=== PATIENT | female | born 1950 | race Caucasian/White ===

== ENCOUNTER → 2019-08-27 13:54 | Outpatient (BNVA) | payer OTHER, SELFPAY | PROVIDERS: Family Provider Family Medicine; PCP Family Medicine; Visit Provider Internal Medicine Cardiovascular Disease | DX: I70.209 Unspecified atherosclerosis of native arteries of extremities, unspecified extremity (principal) | CPT/HCPCS: 85610 ==

== ENCOUNTER → 2019-09-03 09:08 | Outpatient (BNVA) | payer OTHER, MEDICARE, SELFPAY | PROVIDERS: Family Provider Family Medicine; PCP Family Medicine; Visit Provider Internal Medicine Cardiovascular Disease | DX: I70.209 Unspecified atherosclerosis of native arteries of extremities, unspecified extremity (principal) | CPT/HCPCS: 85610 ==

== ENCOUNTER → 2019-09-16 08:27 | Outpatient (BNVA) | payer OTHER, MEDICARE, SELFPAY | PROVIDERS: Family Provider Family Medicine; PCP Family Medicine; Visit Provider Internal Medicine Cardiovascular Disease | DX: I70.209 Unspecified atherosclerosis of native arteries of extremities, unspecified extremity (principal) | CPT/HCPCS: 85610 ==

== ENCOUNTER → 2019-10-01 08:25 | Outpatient (BNVA) | payer MEDICARE, OTHER, SELFPAY | PROVIDERS: Family Provider Family Medicine; PCP Family Medicine; Visit Provider Internal Medicine Cardiovascular Disease | DX: I70.209 Unspecified atherosclerosis of native arteries of extremities, unspecified extremity (principal) | CPT/HCPCS: 85610 ==

== ENCOUNTER 2019-10-26 07:26 | Outpatient (CLI) | payer MEDICARE, OTHER, SELFPAY ==
--- NOTE | 2019-10-26 07:34 | USCV_ITS ---
Nimo Pressley Age: 69 Gender: F : 1950 Exam Date: 10/26/2019 07:57 Ordering Phys: Lance Plascencia MD (Andy) ([email or web address]) Technologist: Marysol Farooq Exam Location: [facility] [place] Indication: F/U ON BILATERAL CEA Risk Factors: Unknown Previous Vascular Surgery: R CEA, L CEA Right Brachial BP: / Left Brachial BP: / Right Left Velocity (cm/s) Spectral Plaque Velocity (cm/s) Spectral Plaque Syst/Diast Broadening Syst/Diast Broadening 78.30/ 15.40 Prox CCA 99.70 / 22.00 78.30/ 17.60 Mid CCA 74.90 / 12.50 65.10/ 11.00 Distal CCA 36.60 / 13.00 Hetro 46.60/ 13.20 Hetro Prox ICA 61.40 / 17.70 83.60/ 30.10 Mid ICA 85.20 / 21.10 66.70/ 23.50 Distal ICA 123.00/ 28.30 170.90 Hetro ECA 76.45 1.07 ICA/CCA 1.64 Antegrade Vertebral Antegrade 77.00/ 12.50 cm/s 67.80/ 11.30 cm/s Tri Subclavian Tri 167.1 212.0 0 0 FINDINGS Mild to moderate diffuse plaques at the bifurcations and internal carotid arteries Moderate to heavy plaques at the right proximal external carotid artery Minimal plaques and intimal thickening in the common carotid arteries bilaterally. Antegrade flow in the vertebral arteries bilaterally. CONCLUSIONS Mild to moderate diffuse plaques at the bifurcations and internal carotid arteries with no significant stenosis, based on the flow velocity measurements. Moderate to heavy plaques at the right proximal external carotid artery with velocity elevation, may suggest hemodynamically significant stenosis. Compared to the study from 04/16/2019, there may not be a significant change. Dr Farhat Cervantes MD [facility] (Electronically Signed) Final Date: 27 October 2019 17:57 S
== END 2019-10-26 07:27 | disposition home or self-care (01) ==
LOC: RAD 07:31
PROVIDERS: Family Provider Family Medicine; PCP Family Medicine; Visit Provider Thoracic Surgery (Cardiothoracic Vascular Surgery)
DX: I65.23 Occlusion and stenosis of bilateral carotid arteries (principal)
CPT/HCPCS: 93880

== ENCOUNTER → 2019-10-29 09:49 | Outpatient (BNVA) | payer MEDICARE, OTHER, SELFPAY | PROVIDERS: Family Provider Family Medicine; PCP Family Medicine; Visit Provider Internal Medicine Cardiovascular Disease | DX: I70.209 Unspecified atherosclerosis of native arteries of extremities, unspecified extremity (principal) | CPT/HCPCS: 85610 ==

== ENCOUNTER → 2019-12-23 09:56 | Outpatient (BNVA) | payer MEDICARE, OTHER, SELFPAY | PROVIDERS: Family Provider Family Medicine; PCP Family Medicine; Visit Provider Internal Medicine Cardiovascular Disease | DX: I70.209 Unspecified atherosclerosis of native arteries of extremities, unspecified extremity (principal) | CPT/HCPCS: 85610 ==

== ENCOUNTER 2020-01-06 15:16 | Outpatient (CLI) | payer MEDICARE, OTHER, SELFPAY ==
--- NOTE | 2020-01-06 15:45 | USCV_ITS ---
Nimo Pressley Age: 69 Gender: F : 1950 Exam Date: 01/06/2020 15:29 Ordering Phys: Yvonne Santamaria MD ([email or web address]) Technologist: Lina Presley [place] [facility] [place]: PAD Risk Factors: Previous Vascular Surgery: ILIAC/POP BYPASS ON LEFT EXTREMITY RIGHT LEFT BP: 123.0 / BP: 139.0/ 0 0 Waveform Velocity (cm/s) Velocity (cm/s) Waveform Monophasic 211.8 Iliac Prox 314.8 Biphasic Monophasic 211.8 Iliac Mid 262.8 Biphasic Monophasic 219.0 Iliac Distal 180.3 Biphasic Monophasic 197.3 KEEPER HEAD N/A Monophasic 90.5 SFA Prox 133.0 Biphasic Monophasic 47.4 SFA Mid 62.1 Biphasic Monophasic 50.4 SFA Dist 47.3 Biphasic Monophasic 56.5 POP 63.1 Biphasic Monophasic 32.9 DIRECTOR OF DEVELOPMENT 47.3 Biphasic Monophasic 16.8 DPA 34.5 Biphasic ANITHA 0.5 FINDINGS RT DIRECTOR OF DEVELOPMENT PRESSURE = 75, RT DPA PRESSURE = 60 RT ARTERIAL VERY HEAVILY CALCIFIED WITH LIMITED FLOW. Patient would not allow me to take pressure at left ankle. Normal resting ANITHA on the right side Left ANITHA could not be obtained No turbulence and elevated velocity in the left iliac artery at the proximal segment CONCLUSIONS 1. Abnormal resting ANITHA and Doppler waveforms on the right side suggestive of moderately severe peripheral artery disease, possibly iliofemoral. 2. Patent iliopopliteal bypass graft on the left side 3. Features of greater than 60% stenosis in the proximal iliac artery on the left side. Compared to the study from 10/17/2018, the right SFA appears to be patent; but the ANITHA has decreased from 0.6 to 0.5 . There is development of significant stenosis in the left proximal iliac artery. Dr Farhat Cervantes MD [facility] (Electronically Signed) Final Date: 06 Jan 2020 19:27 S
== END 2020-01-06 15:17 | disposition home or self-care (01) ==
LOC: RAD 15:20
PROVIDERS: PCP Family Medicine; Visit Provider Internal Medicine Cardiovascular Disease
DX: I73.9 Peripheral vascular disease, unspecified (principal); I70.8 Atherosclerosis of other arteries
CPT/HCPCS: 93925

== ENCOUNTER 2020-01-19 07:48 | Outpatient (CLI) | payer MEDICARE, OTHER, SELFPAY ==
[2020-01-19 08:30] LABS: Blood Urea Nitrogen 8 mg/dL (8-23)
[2020-01-19] MEDS: iohexol 350 mg/mL 100 mL Btl IV (08:50)
--- NOTE | 2020-01-19 15:30 | CT_ITS ---
WS: [id number] CT ANGIOGRAPHY OF THE ABDOMINAL AORTA WITH RUNOFF TO THE ANKLES HISTORY: Peripheral artery disease TECHNIQUE: Arterial injection is performed during imaging to evaluate the aorta and runoff vessels to the ankles. MIP and volume rendering imaging has also been performed. All images are reviewed. All C T scans at [facility] use at least one of these dose optimization techniques: automated ex posure control; mA and/or kV adjustment per patient size (includes targeted exams where dose is match ed to clinical indication); or iterative reconstruction. Contrast: Omnipaque 350; 95 mL IV. DLP: 1399.7 mGycm COMPARISON: 07/07/2013 History of iliopopliteal bypass graft on the LEFT. Abdominal aorta: There is extensive calcified plaque throughout the aorta. Mild progression of the pl aque with no aneurysm. There is intimal thickening circumferentially. Very mild narrowing and stenosi s of the distal aorta. Diameter of the distal aorta 6.3 mm. There is calcified plaque at the celiac a xis with no stenosis. Heavy calcified plaque at the origin of the SMA with diffuse calcified plaque e xtending into the more distal SMA. Similar to the prior study. Inferior mesenteric artery is patent. Calcified plaque at the origins of the renal arteries. Kidneys are enhancing normally. Upper pole LEF T renal cyst. No renal obstruction. RIGHT lower extremity arterial system: There is heavy calcified plaque with diffuse moderate narrowin g of the common iliac artery. Calcified plaque and intimal thickening continues to the external iliac and the internal iliac arteries. Multifocal areas of stenosis near 50% in the common and external il iac arteries. There is an occluded RIGHT SFA at its origin. Reconstitution via the distal femoral art sarah but there is continued heavy calcified plaque and intermittent visualization. Popliteal artery is patent with calcified plaque. Runoff to the ankle via 3 vessels but the vessel caliber is small. LEFT lower extremity arterial system: There is heavy calcified plaque moderate intimal thickening thr oughout the common, internal and external iliac arteries. Multifocal areas of stenosis. Mild atherosc lerosis of the femoral artery. Patient is status post iliofemoral bypass graft. This graft is patent. Popliteal artery is patent. Three-vessel runoff to the ankle although the caliber of the vessels is small. LEFT common iliac artery, distal 71% stenosis. Lung bases are clear. No cardiomegaly. Liver, gallbladder, spleen, pancreas and adrenal glands are ne gative for interval change. No adenopathy or ascites. No GI tract obstruction. Increase in lumbar lordosis. There is no osteoblastic or osteolytic bone disease. CT/CT angio abd aorta runof [id number] IMPRESSION: 1. Patent LEFT iliofemoral bypass graft. 2. Occluded RIGHT SFA proximally with distal reconstitution at Javier's canal. New since 07/07/2013. 3. Bilateral three-vessel runoff to the ankles but the caliber of the vessels is small. 4. Moderate stenosis distal aorta. 5. Multilevel moderate stenosis throughout the RIGHT common and external iliac arteries. Stenoses at several locations at 50%. 6. Distal LEFT common iliac artery stenosis 71%. 7. Extensive calcification in the renal arteries and the SMA which have been p reviously described.
== END 2020-01-19 07:49 | disposition home or self-care (01) ==
LOC: RADWPI 07:52
PROVIDERS: PCP Family Medicine; Referring Provider Family Medicine; Visit Provider Internal Medicine Cardiovascular Disease
DX: I73.9 Peripheral vascular disease, unspecified (principal); I35.0 Nonrheumatic aortic (valve) stenosis; I70.8 Atherosclerosis of other arteries
CPT/HCPCS: 75635; 82565; 84520; Q9967

== ENCOUNTER → 2020-01-20 09:38 | Outpatient (BNVA) | payer MEDICARE, OTHER, SELFPAY | PROVIDERS: PCP Family Medicine; Visit Provider Internal Medicine Cardiovascular Disease | DX: I70.209 Unspecified atherosclerosis of native arteries of extremities, unspecified extremity (principal) | CPT/HCPCS: 85610 ==

== ENCOUNTER → 2020-02-11 08:46 | Outpatient (BNVA) | payer MEDICARE, OTHER, SELFPAY | PROVIDERS: PCP Family Medicine; Visit Provider Internal Medicine Cardiovascular Disease | DX: I73.9 Peripheral vascular disease, unspecified (principal); Z79.01 Long term (current) use of anticoagulants; I70.209 Unspecified atherosclerosis of native arteries of extremities, unspecified extremity | CPT/HCPCS: 80048; 85025; 87635 ==

== ENCOUNTER 2020-02-29 10:42 | Observation (INO) | payer MEDICARE, OTHER, SELFPAY ==
[2020-02-26 10:02] VITALS: BMI 31.8
[2020-02-29] VITALS (32 sets, daily range): BP systolic 75–171; BP diastolic 44–97; PULSE 59–96; RESP 16–30; O2SAT 86–97; BMI 31.8
--- NOTE | 2020-02-29 06:00 | XACV_ITS ---
Wt: 87 kg BSA: 2.02 m2 Any Known Allergies: No known allergies Gender: Female : 1950 Exam Type: Invasive Peripheral Vascular Procedure(s): Procedure Description: Peripheral Cath Diagnostic Procedure Procedure Description: Iliac arterial aortic angiography Procedure Description: Lower extremities' angiography Procedure Description: Peripheral vascular Intervention Procedure Description: PV Balloon Procedure Description: PV Atherectomy Exam Priority: Routine Conclusions Patient underwent peripheral angiogram for lifestyle limiting claudication of the right leg despite of lifestyle modification and medicine. CTA was consistent with moderate iliac and severe SFA disease . Today patient underwent peripheral angiogram through posterior tibial approach she was found to have chronically occluded proximal to distal SFA and external iliac vessel. After crossing vision retrogradely in the right SFA and iliac arteries wire was parked in the aorta. Using Inclinixer wire was exchanged. 2.0 bur of CSI atherectomy was used for rotablation in external iliac and SFA. Lesions were then treated with balloon angioplasty and drug-coated balloon. Excellent angiographic result was achieved. Patient tolerated procedure well and doing fine from a vascular perspective she is walking around sheath is out she has completed bedrest she has good anterior and posterior tibial pulse. Her foot looks good. Reason for peripheral angiogram: Lifestyle limiting mom claudication of the right leg despite of optimization of medicine. Failed conservative management CT angiogram was consistent with severe peripheral vascular disease including severe disease in the right external iliac and SFA it is the reason patient was brought in here for posterior tibial approach.After somewhat difficulty we were able to cross the SFA lesion through external iliac artery in retrograde fashion into the aorta. Seeker was used to exchange Viper wire. 2.0 CSI atherectomy bur was used in a retrograde fashion from distal right SFA to external iliac. Multiple balloon angioplasty using [place] balloon followed by loop tonics drug-coated balloon in the SFA and right external iliac was performed. Please refer to inventory list of balloons timing and BARRY of inflation. Excellent angiographic result with good flow was noted in right external iliac, right common iliac, right SFA and popliteal artery. Good dopplerable anterior posterior tibial pulse noted at the end of the case. Recommendations 1-Return to inpatient for close monitoring and routine cath care 2-Risk factor modification for secondary prevention 3-Statin and aspirin 81 mg life--long, if tolerated 4-Patient was pre-loaded with 300 mg of Plavix, continue Plavix 75mg p.o. daily for three months 5-Continue optimal medical management 6-Follow up with Dr. Rebollar in four weeks and your primary care in 10 days. Hemodynamic Data Phase:Rest AO : 236.0 mmHg / 105.0 mmHg ( 162.0 mmHg ) @ 4:55:00 AM 236.0 mmHg / 112.0 mmHg ( 160.0 mmHg ) @ 5:11:00 AM 152.0 mmHg / 79.0 mmHg ( 106.0 mmHg ) @ 5:21:00 AM Access Site Site: Right Popliteal Sheath Size: 6 Fr Hemost... Method: TR Band Hemost... Success: Successful Procedure Details Findings Procedure Consent Obtained. Pre-Procedure Time Out. Identified patient by full name and date of as verbalized by the patient/guarantor. Does the consent match the physician's order: Yes. Accurate & Complete Informed Consent: Yes. Inpatient/Outpatient History & Physical on Chart: Yes. If H&P is completed, is and addenduem needed: No; If yes, is the addendum complete: N/A. Visualize and Verify Site with Patient/Guarantor: N/A. Relevant Radiology Images available: N/A. Pre-op teaching completed and patient verbalized understanding. The risks, benefits, and alternatives of sedation and/or procedure were discussed by physician. The patient agrees to continue. Procedure started. Correct patient, site and procedure confirmed by cath team. PERRLA. Strong, equal hand cupola charger insulation bilaterally. Lungs clear x 5 lobes. IV Site on Arrival: 20 gauge in the right anticubital. IV Fluids: 0.9% NaCl at KVO. 0 mL infused prior to minilab operator. Pre Procedural Pulses: bilateral dorsalis pedis was Doppled. Pre Procedural Pulses: bilateral posterior tibial was 1+. Oxygen started at 2liters/min via nasal canula. Baseline sample Acquired. HR: 92 BPM. Right tibial area was prepped with chloroprep then draped in the usual sterile fashion. bilateral groins was prepped with chloroprep then draped in the usual sterile fashion. Physician notified. Physician arrived. Called staff nuclear medicine technologist to come assist with gaining access. Physician scrubbed in. Immediate Pre-Procedure Time Out. Correct Patient: Yes; Correct Procedure: Yes; Correct Site: Yes; Correct Patient Position: Yes; Correct Supplies: Yes; Dried Flammable Prep: Yes; Blood Products Available: N/A;. Curtis from ultrasound arrived to assist. Lidocaine 1% infiltrated to the right lower leg. Arterial access obtained with micropuncture set. SEEKER support catheter inserted over Glidewire. Equipment: Peripheral. Cardiac Cath Pack. ACIST Manifold Kit Model BT 2000. Heparinized Saline (2 units/mL), 1000 mL bag. Glidewire out. Hand injection performed. Glidewire inserted. VIPER wire inserted through SEEKER cathter. SEEKER catheter out over VIPER wire. 6 fr 2.00 Diamondback Orbital Atherectomy device inserted over VIPER wire to right SFA. Orbital atherectomy performed in Right SFA. Diamondback atherectomy device removed over VIPER wire. SEEKER catheter inserted VIPER wire. VIPER wire out. Glidewire inserted through SEEKER catheter. SEEKER catheter removed over Glidewire. Inflation number : 1 A AB [place] 35 MANAGER ONLINE Catheter [id number] was prepped and advanced across the Superficial Femoral, Right , then inflated to 10 BARRY for 2:03 seconds. Inflation number: 2 The AB [place] 35 MANAGER ONLINE Catheter [id number] was reinflated across the Right iliac to aorta, to 10 BARRY for 2:05 seconds. Balloon out over glide wire. 6 fr 125 cm PIG inserted over glidewire. Right iliac selected and arteriogram performed with runoff. PIG catheter removed over glidewire. Side port of sheath attached to Normal Saline flush at KVO to maintain patency. Inflation number : 1 A BARD 6FR Lutinox [id number] drug coated balloon was prepped and advanced across the External Iliac, Right , then inflated to 6 BARRY for 1:00 seconds. Inflation number: 3 The BARD 6FR Lutinox [id number] drug coated balloon was reinflated across the Superficial Femoral, Right, to 6 BARRY for 1:02 seconds. Balloon out over wire. 4 fr glidecath Non-taper angle inserted over glidewire. Iliac picture taken. Results checked SFA. Results checked popliteal. Results checked. Physician scrubbed out. A TR Band was successful obtaining hemostatsis at the Right lower leg insertion site. TR band placed. Hemostasis obtained. Post Procedure: Pulses reassessed and unchanged. PERRLA. Strong, equal hand cupola charger insulation bilaterally. No VTE prophylaxis required. Total IV fluids: 190 mL. Contrast type used: Visipaque 320 mgI/mL, 500 mL bottle. Post-op diagnosis: lifestyle limiting claudication, severe PVD. Complications: noen. Estimated blood loss: 5mL-10mL. Medication's Wasted: Lidocaine 1% = 18 mL. Medication's Wasted: Nitro = 49.9 mg. Medication's Wasted: Verapamil = 4 mg. Medication's Wasted: Other = hydralizine 10 mg. Medication's Wasted: Other = versed 1 mg. Medication's Wasted: Other = fentanyl 75 mcg. Medication's Wasted: Heparin = 2000 units. Procedure completed. Patient transferred by bed to 1st floor. Vital chart was stopped. Procedure Medications Start: 8:18 AM Stop: 8:18 AM Medication: Versed Amount: 1 mg Route: I.V. Start: 8:18 AM Stop: 8:18 AM Medication: Fentanyl Amount: 50 mcg Route: I.V. Start: 8:25 AM Stop: 8:25 AM Medication: Versed Amount: 1 mg Route: I.V. Start: 8:41 AM Stop: 8:41 AM Medication: Versed Amount: 1 mg Route: I.V. Start: 9:04 AM Stop: 9:04 AM Medication: Versed Amount: 1 mg Route: I.V. Start: 9:04 AM Stop: 9:04 AM Medication: Fentanyl Amount: 25 mcg Route: I.V. Start: 9:25 AM Stop: 9:25 AM Medication: Heparin Amount: 5000 units Route: I.V. Start: 9:31 AM Stop: 9:31 AM Medication: Fentanyl Amount: 25 mcg Route: I.V. Start: 9:58 AM Stop: 9:58 AM Medication: Hydralazine Amount: 10 mg Route: I.V. Start: 10:07 AM Stop: 10:07 AM Medication: Heparin Amount: 3000 units Route: I.V. Start: 10:10 AM Stop: 10:10 AM Medication: Fentanyl Amount: 25 mcg Route: I.V. Start: 9:20 AM Stop: 9:20 AM Medication: Versed Amount: 1 mg Route: I.V. Start: 9:31 AM Stop: 9:31 AM Medication: Versed Amount: 1 mg Route: I.V. Start: 9:45 AM Stop: 9:45 AM Medication: Versed Amount: 1 mg Route: I.V. Start: 10:08 AM Stop: 10:08 AM Medication: Versed Amount: 1 mg Route: I.V. I, the attending physician, have reviewed and verified all procedure medications. Yes, all medications given per verbal order History/Risk Factors Hypertension: Yes Dyslipidemia: Yes Peripheral Arterial Disease (PAD): Yes Myocardial Infarction ([place]): No Obesity: No Renal Disease: No Tobacco Use: Current/Recent(w/in 1 year) Prior Interventions PCI: No CABG: No Valve Surgery: No Report Signatures Finalized by:Angela Rebollar MD on 03/13/2020 5:57:55 PM
[2020-02-29] MEDS: diphenhydrAMINE 50 mg Capsule PO (06:19)
[2020-02-29 06:46] LABS: INR 0.97 (0.8-1.2)
--- NOTE | 2020-02-29 07:33 | SUR.PREOP ---
DR RUIZ HERE TO SEE THE PATIENT AND UPDATE H & P
--- NOTE | 2020-02-29 07:44 | USCV_ITS ---
Nimo Pressley Age: 69 Gender: F : 1950 Exam Date: 02/29/2020 08:03 Ordering Phys: Angela Rebollar MD ([email or web address]) Technologist: Curtis Rodriguez Exam Location: [facility] – [place] Indication: STANLEY FOR ACCESS Findings MARKED FOR ACCESS IN DIRECTOR OF RESTAURANT ON RT Conclusions MARKED FOR ACCESS IN DIRECTOR OF RESTAURANT ON RT Koko Arango MD (Electronically Signed) Final Date: 02 March 2020 11:08 S
--- NOTE | 2020-02-29 07:49 | PM.HP ---
Providers/Chief Complaint Primary Care Provider: Gurwinder Lomeli DO Chief Complaint: peripheral angiogram History of Present Illness Nimo Pressley is a 69 year old female past medical history significant for severe peripheral vascular disease history of iliofemoral bypass on the left, continuous tobacco abuse, hypertension, lifestyle limiting claudication of 30 to 50 feet on the right leg. Patient underwent CTA of the abdominal aorta with runoff. She was noted to have mid to distal 100% occluded right SFA, patient has moderate disease in the iliacs on the right side as well. It is the reason she is here. She has failed conservative management. Dr. Santamaria referred the patient for peripheral angiogram and intervention if indicated. Since patient has occlusion of the left iliacs status post iliofemoral bypass on the left side we will proceed through tibial approach. Further plan will be advised as per progress of the patient. Medications/Allergies Home Medications Medication Instructions Recorded Confirmed Last Taken Type aspirin 81 mg tablet,delayed 81 mg PO BEDTIME 10/22/19 02/26/20 02/24/20 History release atorvastatin 80 mg PO BEDTIME 02/26/20 02/26/20 02/24/20 History lisinopril 40 mg PO QAM 02/26/20 02/26/20 02/24/20 History warfarin 4 mg PO DIRECTED 02/26/20 02/26/20 02/23/20 History warfarin 1 mg PO DAILY 02/29/20 02/29/20 02/24/20 History Allergies Allergy/AdvReac Type Severity Reaction Status Date / Time No Known Allergies Allergy Verified 02/26/20 09:29 PFSH Acute PFSH: Medical History Carotid artery stenosis Dyslipidemia Femoral artery occlusion Hypertension PAD (peripheral artery disease) Smoker Surgical History S/P peripheral artery angioplasty with stent placement S/P vascular surgery Status post carotid surgery (~2012) bilateral Family History Other CAD (coronary artery disease) Social History Smoking and tobacco status: current every day smoker Alcohol intake: never Vitals/I&O/Wt Last Vital Signs Pulse 96 02/29/20 06:47 Resp 16 02/29/20 06:47 BP 171/97 02/29/20 06:47 Pulse Ox 94 02/29/20 06:47 Weight last 48 hrs Weight 191 lb Physical Exam Narrative: EXAM NARRATIVE: GENERAL: Patient is alert, awake and oriented x3. NECK: No jugular vein distension. HEENT: No cyanosis. No icterus. No pallor. HEART: Regular S1 and S2. No murmur, rub or gallop. LUNGS: Clear to auscultate bilaterally. ABDOMEN: Soft, nontender and nondistended. Positive bowel sounds. No guarding, rebound or tenderness. CENTRAL NERVOUS SYSTEM: Grossly nonfocal. EXTREMITIES: Lower extremities with 1+ edema right. Dopplerable PTs and 1+ DP A&P Assessment and plan (1) Smoker: Patient has been discussed in detail regarding quitting smoking. She has not voice any interest in it Status: Acute (2) Hypertension: Moderately elevated we will optimize her medicine. Status: Acute (3) PAD (peripheral artery disease): Patient has lifestyle limiting claudication with severe peripheral vascular disease noted on CTA with occlusion of right SFA and moderate disease of right iliacs. Patient has history of iliofemoral bypass on the left side we will try to proceed through tibial approach from the right leg. Patient has been explained in detail all the risk benefit and alternative for the procedure. Patient has been explained in detail regarding application of drug-coated balloon. She understand the warning provided by FDA regarding the balloon which has shown to increase mortality and that group which used drug-coated balloon. She would like to proceed with it. Further plan will be advised as per progress of the patient. Status: Acute Attestations Medical Necessity Statement*: Patient is an outpatient in bed. Coding Level of Care Code New Pt Acute Treatment Specialist for g Fwd Patient Type New Medical Decision Making Moderate Complexity Diagnoses Smoker F17.200 Hypertension I10 PAD (peripheral artery disease) I73.9
--- NOTE | 2020-02-29 08:07 | W.PM.OPSUD ---
Surgery/Procedure H&P Update DATE OF PROCEDURE: February 29, 2020 DATE H&P PERFORMED: 02/29/20 H&P UPDATE INFORMATION: I have examined patient prior to procedure and Changes to prior documentation as noted here CHANGES TO PREVIOUS DOCUMENTATION: Worsening of lifestyle limiting claudication in the right leg for 30 to 50 feet PREOP DIAGNOSIS: Severe peripheral vascular disease with lifestyle limiting claudication PLANNED PROCEDURE: Operation Date: 02/29/20 07:00 Proposed Procedures p Peripheral Diagnostic(Not Applicable) - Angela Rebollar MD PATIENT REASSESSED PRIOR TO SEDATION, WITH NO CHANGE NOTED: Yes PHYSICAL EXAM: alert, oriented x 3 and clear to auscultation bilaterally AIRWAY EVAL/ANESTHESIA PLAN: ASA II, Risks, benefits & alternatives of sedation and/or procedure discussed and Patient agrees to continue as planned
--- NOTE | 2020-02-29 11:04 | PC.NURSE ---
Patient arrived to floor at 1035. Patient is alert and orientated. Patient has a TR band in place on right ankle with 22 mL of air in place. No bleeding or hematoma noted at site. Patient has IV patent and intact in right AC space. Patient is on 2 Liters of 02 NC at this time.
[2020-02-29] MEDS: clopidogrel 300 mg Tablet PO (11:28)
[2020-02-29] MEDS: sodium chloride 0.9% 250 ML 999 ML IV (11:29)
--- NOTE | 2020-02-29 11:47 | PC.NURSE ---
Patients blood pressure dropped to 75/44 at this time patient is sleeping; patient placed in [place] and blood pressure came up to 98/[address] robles notified give 250 bolus and increase fluids to 100 mls/hr
--- NOTE | 2020-02-29 13:44 | PC.NURSE ---
Posterior tibial arterial site TR band in place, no hematoma present. Form doesn't have an option for tibial site.
--- NOTE | 2020-02-29 14:15 | PC.NURSE ---
TR band to posterior tibial artery removed per protocol. clear dressing applied; patient educated on bed rest restrictions as well as s/s to notify nurse with patient verbalized understanding.
--- NOTE | 2020-02-29 17:42 | PM.DCS ---
Discharge Providers Date of Admission: 02/29/20 10:42 Date of Discharge: February 29, 2020 Attending Provider at Admission: Angela Rebollar MD Attending Provider at Discharge: Angela Rebollar MD Primary Care Provider: Gurwinder Lomeli DO Diagnoses at Discharge Discharge Diagnosis (1) Smoker: Status: Acute (2) Hypertension: Status: Acute (3) PAD (peripheral artery disease): Status: Acute Reason for Visit Reason for Visit: peripheral angiogram Hospital Course Discharge Summary: Patient underwent peripheral angiogram for lifestyle limiting claudication of the right leg despite of lifestyle modification and medicine. CTA was consistent with moderate iliac and severe SFA disease. Today patient underwent peripheral angiogram through posterior tibial approach she was found to have chronically occluded proximal to distal SFA and external iliac vessel. After crossing vision retrogradely in the right SFA and iliac arteries wire was parked in the aorta. Using NPC IIIer Viper wire was exchanged. 2.0 bur of CSI atherectomy was used for rotablation in external iliac and SFA. Lesions were then treated with balloon angioplasty and drug-coated balloon. Excellent angiographic result was achieved. Patient tolerated procedure well and doing fine from a vascular perspective she is walking around sheath is out she has completed bedrest she has good anterior and posterior tibial pulse. Her foot looks good. She is being discharged home now. Patient has been started on Plavix for 3-month. Patient has been advised to follow-up with Dr. Santamaria, she will see Abbi Gaffney in 7 days. Physical Exam Narrative: EXAM NARRATIVE: GENERAL: Patient is alert, awake and oriented x3. NECK: No jugular vein distension. HEENT: No cyanosis. No icterus. No pallor. HEART: Regular S1 and S2. No murmur, rub or gallop. LUNGS: Clear to auscultate bilaterally. ABDOMEN: Soft, nontender and nondistended. Positive bowel sounds. No guarding, rebound or tenderness. CENTRAL NERVOUS SYSTEM: Grossly nonfocal. EXTREMITIES: Lower extremities anterior and posterior tibial pulse palpable in the right foot. Color of the foot looks good. 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 Routin e Exams 02/29/20 06:00 Taken US guide vascular access [CV guide vascular access Ultrasound 02/29/20 07:44 Taken [id number]] Routine Labs from last 24 hours 02/29/20 06:30 PT 13.20 INR 0.97 Vitals: Last Vital Signs Pulse 81 02/29/20 16:35 Resp 26 H 02/29/20 13:00 BP 129/73 02/29/20 13:00 Pulse Ox 91 02/29/20 16:35 Discharge Plan Discharge Patient Disposition: Home, Self-Care Condition: Stable Prescriptions: New clopidogrel [Plavix] 75 mg tablet 75 mg PO DAILY Qty: 90 RF: 0 pantoprazole [Protonix] 40 mg tablet,delayed release (DR/EC) 40 mg PO DAILY Qty: 90 RF: 0 Continued atorvastatin 80 mg tablet 80 mg PO BEDTIME RF: 0 warfarin 4 mg tablet 4 mg PO DIRECTED RF: 0 lisinopril 40 mg tablet 40 mg PO QAM RF: 0 warfarin 1 mg Tablet 1 mg PO DAILY RF: 0 Discontinued aspirin [Adult Aspirin Regimen] 81 mg tablet,delayed release (DR/EC) 81 mg PO BEDTIME RF: 0 Referrals: Abbi Gaffney FNP [Nurse Practitioner] - 1 week ([facility] [place] [facility] will be calling to schedule a post procedure followup with RESHMA Torres to be seen in 1 week. If you don't hear from them by Saturday, please give them a call. Thank you.) Yvonne Santamaria MD [Physician] - 2 months ([facility] [place] will be calling to schedule a cardiology followup with Dr. Santamaria to be seen in approx. 2 months. If you don't hear from them by Saturday afternoon, please give them a call. Thank you.) Discharge Diet: Cardiac Patient Instructions: Clopidogrel (By mouth), Peripheral Vascular Angioplasty (DC), Post Angiogram Home Care Instructions Discharge Attestations Time Spent in Discharge Care*: less than 30 min Specific Discharge Activities: Specific discharge activities: educating patient Time Spent in Smoking Cessation: Time spent discussing smoking cessation with patient: 3 to 10 minutes Quality Metrics Clinical Quality Measures During this hospital stay, did patient experience: None Coding Level of Care Code New Pt Acute Bond Runner for Daniela Fwd Patient Type New Medical Decision Making Moderate Complexity Diagnoses Smoker F17.200 Hypertension I10 PAD (peripheral artery disease) I73.9
--- NOTE | 2020-02-29 18:35 | PC.NURSE ---
Patient left floor via w/c at 1835 with discharge instructions and post procedure limitations discussed and handouts given information given to patient.
--- NOTE | 2020-03-02 12:23 | PC.RESP ---
Smoking Cessation information and a schedule of classes sent to patient.
== END 2020-02-29 18:35 | disposition home or self-care (01) ==
LOC: CSU 10:42
PROVIDERS: Admitting Provider Internal Medicine Cardiovascular Disease; PCP Family Medicine; Visit Provider Internal Medicine Cardiovascular Disease
DX: I73.9 Peripheral vascular disease, unspecified (principal); I10 Essential (primary) hypertension; F17.210 Nicotine dependence, cigarettes, uncomplicated; Z95.828 Presence of other vascular implants and grafts; Z79.82 Long term (current) use of aspirin; I25.10 Atherosclerotic heart disease of native coronary artery without angina pectoris; E78.5 Hyperlipidemia, unspecified; Z79.01 Long term (current) use of anticoagulants
CPT/HCPCS: 12345; 37220; 37225; 75710; 76937; 85610; C1724; C1725; C1769; C1887; C1894; C2623; G0378; J0360; J1644; J2250; J3010; J3490; J7030; J7050; Q0163; Q9967

== ENCOUNTER → 2020-03-08 13:20 | Outpatient (BNVA) | payer MEDICARE, OTHER, SELFPAY | PROVIDERS: PCP Family Medicine; Visit Provider Nurse Practitioner Family | DX: I73.9 Peripheral vascular disease, unspecified (principal) | CPT/HCPCS: 80048 ==

== ENCOUNTER → 2020-03-14 10:09 | Outpatient (BNVA) | payer MEDICARE, OTHER, SELFPAY | PROVIDERS: PCP Family Medicine; Visit Provider Internal Medicine Cardiovascular Disease | DX: I70.209 Unspecified atherosclerosis of native arteries of extremities, unspecified extremity (principal) | CPT/HCPCS: 85610 ==

== ENCOUNTER → 2020-04-11 10:01 | Outpatient (BNVA) | payer MEDICARE, OTHER, SELFPAY | PROVIDERS: PCP Family Medicine; Visit Provider Internal Medicine Cardiovascular Disease | DX: I70.209 Unspecified atherosclerosis of native arteries of extremities, unspecified extremity (principal) | CPT/HCPCS: 85610 ==

== ENCOUNTER → 2020-05-12 15:19 | Outpatient (BNVA) | payer MEDICARE, OTHER, SELFPAY | PROVIDERS: PCP Family Medicine; Visit Provider Nurse Practitioner Family | DX: I70.209 Unspecified atherosclerosis of native arteries of extremities, unspecified extremity (principal) | CPT/HCPCS: 85610 ==

== ENCOUNTER 2020-05-16 12:43 | Outpatient (CLI) | payer MEDICARE, OTHER, SELFPAY ==
--- NOTE | 2020-05-16 13:30 | USCV_ITS ---
Nimo Pressley Age: 69 Gender: F : 1950 Exam Date: 05/16/2020 13:24 Ordering Phys: Lance Plascencia MD (Andy) ([email or web address] [place] Technologist: Lina Presley Exam Location: [facility] [place] Indication: STENOSIS Risk Factors: Previous Vascular Surgery: R CEA, L CEA Right Brachial BP: / Left Brachial BP: / Right Left Velocity (cm/s) Spectral Plaque Velocity (cm/s) Spectral Plaque Syst/Diast Broadening Syst/Diast Broadening 102.50/17.60 Prox CCA 99.20 / 16.50 63.90/ 13.20 Mid CCA 62.10 / 15.50 57.30/ 7.70 Distal CCA 73.00 / 13.20 60.60/ 20.90 Prox ICA 84.60 / 11.10 79.40/ 13.20 Mid ICA 87.10 / 16.80 90.40/ 23.20 Distal ICA 86.00 / 17.00 145.50 ECA 74.60 1.41 ICA/CCA 1.40 Not Vertebral Antegrade Visualized / cm/s 41.00/ 12.00 cm/s Bi Subclavian Tri 94.80 105.0 0 FINDINGS Comparison:. 04/21/20 Prior bilatera CEA's. Mild bilateral diffuse intimal thickening and plaque. No elevation of velocity of significance or progression. Non visualized right vertebral artery. CONCLUSIONS Bilateral ICA stenosis less than 50%. Diffuse bilateral carotid atherosclerosis. Dr. Lina Azul DO (Electronically Signed) Final Date: 16 May 2020 14:38 S
== END 2020-05-16 12:44 | disposition home or self-care (01) ==
LOC: US 12:44
PROVIDERS: PCP Family Medicine; Visit Provider Thoracic Surgery (Cardiothoracic Vascular Surgery)
DX: I65.23 Occlusion and stenosis of bilateral carotid arteries (principal)
CPT/HCPCS: 93880

== ENCOUNTER → 2020-06-17 08:42 | Outpatient (BNVA) | payer MEDICARE, OTHER, SELFPAY | PROVIDERS: PCP Family Medicine; Referring Provider Internal Medicine Cardiovascular Disease; Visit Provider Internal Medicine Cardiovascular Disease | DX: I70.209 Unspecified atherosclerosis of native arteries of extremities, unspecified extremity (principal) | CPT/HCPCS: 85610 ==

== ENCOUNTER → 2020-07-18 08:48 | Outpatient (BNVA) | payer MEDICARE, OTHER, SELFPAY | PROVIDERS: PCP Family Medicine; Visit Provider Internal Medicine Cardiovascular Disease | DX: I70.209 Unspecified atherosclerosis of native arteries of extremities, unspecified extremity (principal) | CPT/HCPCS: 85610 ==

== ENCOUNTER → 2020-08-15 08:33 | Outpatient (BNVA) | payer MEDICARE, OTHER, SELFPAY | PROVIDERS: PCP Family Medicine; Visit Provider Internal Medicine Cardiovascular Disease | DX: I70.209 Unspecified atherosclerosis of native arteries of extremities, unspecified extremity (principal) | CPT/HCPCS: 85610 ==

== ENCOUNTER → 2020-08-22 09:04 | Outpatient (BNVA) | payer MEDICARE, OTHER, SELFPAY | PROVIDERS: PCP Family Medicine; Visit Provider Internal Medicine Cardiovascular Disease | DX: I70.209 Unspecified atherosclerosis of native arteries of extremities, unspecified extremity (principal); Z98.890 Other specified postprocedural states | CPT/HCPCS: 85610 ==

== ENCOUNTER → 2020-09-19 10:09 | Outpatient (BNVA) | payer MEDICARE, OTHER, SELFPAY | PROVIDERS: PCP Family Medicine; Visit Provider Internal Medicine Cardiovascular Disease | DX: I70.209 Unspecified atherosclerosis of native arteries of extremities, unspecified extremity (principal); Z79.01 Long term (current) use of anticoagulants | CPT/HCPCS: 85610 ==

== ENCOUNTER 2020-09-23 11:38 | Outpatient (CLI) | payer MEDICARE, OTHER, SELFPAY ==
--- NOTE | 2020-09-23 11:48 | US_ITS ---
WS: [id number] ULTRASOUND SOFT TISSUES LEFT axilla. HISTORY: CHEST FULLNESS COMPARISON: None available. TECHNIQUE: 2-D and color Doppler imaging is submitted. Palpable area in the LEFT axilla appears to be a fatty replaced lymph node measuring 2.5 x 3.0 x 1.0 cm. Mild central vascularity. No increased peripheral vascularity. No fatty replacement with tumor. T here are several similar appearing nodes. US/US soft tissue/extremity [id number] IMPRESSION: 1. LEFT axillary lymph nodes appear fatty replaced and benign in appearance. 2. If there is continued concern for abnormality in the LEFT axilla consider f ollow-up chest CT with IV contrast.
== END 2020-09-23 11:39 | disposition home or self-care (01) ==
LOC: RAD 11:40
PROVIDERS: PCP Family Medicine; Visit Provider Family Medicine
DX: R07.89 Other chest pain (principal)
CPT/HCPCS: 76882

== ENCOUNTER → 2020-10-17 10:05 | Outpatient (BNVA) | payer MEDICARE, OTHER, SELFPAY | PROVIDERS: PCP Family Medicine; Visit Provider Internal Medicine Cardiovascular Disease | DX: I70.209 Unspecified atherosclerosis of native arteries of extremities, unspecified extremity (principal); Z79.01 Long term (current) use of anticoagulants | CPT/HCPCS: 85610 ==

== ENCOUNTER → 2020-11-14 09:03 | Outpatient (BNVA) | payer MEDICARE, OTHER, SELFPAY | PROVIDERS: PCP Family Medicine; Visit Provider Internal Medicine Cardiovascular Disease | DX: I70.209 Unspecified atherosclerosis of native arteries of extremities, unspecified extremity (principal); Z79.01 Long term (current) use of anticoagulants | CPT/HCPCS: 85610 ==

== ENCOUNTER 2020-11-17 12:05 | Outpatient (CLI) | payer MEDICARE, OTHER, SELFPAY ==
--- NOTE | 2020-11-17 12:45 | USCV_ITS ---
Nimo Pressley Age: 70 Gender: F : 1950 Exam Date: 11/17/2020 12:34 Ordering Phys: Lance Plascencia MD (Andy) ([email or web address] [place]) Technologist: Alicia Carroll Exam Location: [facility] [place] Indication: STENOSIS BILAT ENDART Risk Factors: Previous Vascular Surgery: Right Brachial BP: / Left Brachial BP: / Right Left Velocity (cm/s) Spectral Plaque Velocity (cm/s) Spectral Plaque Syst/Diast Broadening Syst/Diast Broadening 169.10/25.20 Prox CCA / 98.90/ 18.00 Mid CCA 73.60 / 13.10 133.10/23.40 Distal CCA 57.80 / 13.10 60.93/ 14.43 Prox ICA 86.80 / 21.00 72.30/ 21.00 Mid ICA 110.40/ 31.60 63.10/ 19.70 Distal ICA 136.70/ 40.80 192.50 ECA 94.70 0.73 ICA/CCA 1.86 Antegrade Vertebral Retrograde 80.20/ 18.40 cm/s 36.80/ 10.50 cm/s Tri Subclavian Tri FINDINGS TDS PT BREATHING ISSUES Mild to moderate to dense plaques at the bifurcations bilaterally. Significant plaque shadowing in the right proximal ICA. Tortuous ICA on the left side Vertebral arteries difficult to visualize. Appears to have antegrade flow. Mild diffuse plaques in the common carotid arteries bilaterally Normal Doppler flow velocity in subclavian arteries bilaterally CONCLUSIONS Mild to moderate heterogeneous plaques at the bifurcations bilaterally with Doppler velocities consistent with less than 50% stenosis Mild diffuse plaques in the common carotid arteries bilaterally Technically difficult study because of the plaque shadowing and patient's abnormal breathing. Possibly no significant change compared to the study from 05/16/2020 Dr Farhat Cervantes MD [facility] (Electronically Signed) Final Date: 18 November 2020 09:39 S
--- NOTE | 2020-11-17 13:30 | USCV_ITS ---
Nimo Pressley Age: 70 Gender: F : 1950 Exam Date: 11/17/2020 13:09 Ordering Phys: Lance Plascencia MD (Andy) ([email or web address]) Technologist: Guerda Arrington [place]am Location[place] [facility] [place] Indication: HISTORY: PROCEDURES: FINDINGS: The venous Doppler examination of the right lower extremity was performed in the standard fashion. The veins were found to be easily compressible with spontaneous blood flow. Non pulsatile flow pattern. Patient refused the study on the left side CONCLUSIONS No evidence of DVT in the above-mentioned identifiable veins, on the right side. No significant venous reflux either in the deep or superficial veins on the right side The venous dimensions and the depth from the surface are as mentioned above Dr Farhat Cervantes MD [facility] (Electronically Signed) Final Date: 18 November 2020 10:57 S
== END 2020-11-17 12:06 | disposition home or self-care (01) ==
PROVIDERS: PCP Family Medicine; Visit Provider Thoracic Surgery (Cardiothoracic Vascular Surgery)
DX: M79.89 Other specified soft tissue disorders (principal); I65.23 Occlusion and stenosis of bilateral carotid arteries
CPT/HCPCS: 93880; 93971

== ENCOUNTER → 2020-12-12 09:05 | Outpatient (BNVA) | payer MEDICARE, OTHER, SELFPAY | PROVIDERS: PCP Family Medicine; Visit Provider Internal Medicine Cardiovascular Disease | DX: I70.209 Unspecified atherosclerosis of native arteries of extremities, unspecified extremity (principal) | CPT/HCPCS: 85610 ==

== ENCOUNTER → 2020-12-19 09:24 | Outpatient (BNVA) | payer MEDICARE, OTHER, SELFPAY | PROVIDERS: PCP Family Medicine; Visit Provider Internal Medicine Cardiovascular Disease | DX: I70.209 Unspecified atherosclerosis of native arteries of extremities, unspecified extremity (principal) | CPT/HCPCS: 85610 ==

== ENCOUNTER → 2021-01-17 09:37 | Outpatient (BNVA) | payer MEDICARE, OTHER, SELFPAY | PROVIDERS: PCP Family Medicine; Visit Provider Internal Medicine Cardiovascular Disease | DX: I70.209 Unspecified atherosclerosis of native arteries of extremities, unspecified extremity (principal) | CPT/HCPCS: 85610 ==

== ENCOUNTER → 2021-02-14 09:31 | Outpatient (BNVA) | payer MEDICARE, OTHER, SELFPAY | PROVIDERS: PCP Family Medicine; Visit Provider Internal Medicine Cardiovascular Disease | DX: I70.209 Unspecified atherosclerosis of native arteries of extremities, unspecified extremity (principal); Z79.01 Long term (current) use of anticoagulants | CPT/HCPCS: 85610 ==

== ENCOUNTER → 2021-03-14 09:19 | Outpatient (BNVA) | payer MEDICARE, OTHER, SELFPAY | PROVIDERS: PCP Family Medicine; Visit Provider Internal Medicine Cardiovascular Disease | DX: I70.209 Unspecified atherosclerosis of native arteries of extremities, unspecified extremity (principal); Z79.01 Long term (current) use of anticoagulants | CPT/HCPCS: 85610 ==

== ENCOUNTER → 2021-04-11 09:37 | Outpatient (BNVA) | payer MEDICARE, OTHER, SELFPAY | PROVIDERS: PCP Family Medicine; Visit Provider Internal Medicine Cardiovascular Disease | DX: I70.209 Unspecified atherosclerosis of native arteries of extremities, unspecified extremity (principal); Z79.01 Long term (current) use of anticoagulants | CPT/HCPCS: 85610 ==

== ENCOUNTER → 2021-04-18 09:14 | Outpatient (BNVA) | payer MEDICARE, OTHER, SELFPAY | PROVIDERS: PCP Family Medicine; Visit Provider Internal Medicine Cardiovascular Disease | DX: I70.209 Unspecified atherosclerosis of native arteries of extremities, unspecified extremity (principal); Z79.01 Long term (current) use of anticoagulants | CPT/HCPCS: 85610 ==

== ENCOUNTER → 2021-04-26 15:50 | Outpatient (BNVA) | payer MEDICARE, OTHER, SELFPAY | PROVIDERS: PCP Family Medicine; Visit Provider Nurse Practitioner Family | DX: L03.116 Cellulitis of left lower limb (principal); R60.9 Edema, unspecified; I10 Essential (primary) hypertension; I87.2 Venous insufficiency (chronic) (peripheral); F17.200 Nicotine dependence, unspecified, uncomplicated; R06.02 Shortness of breath; I73.9 Peripheral vascular disease, unspecified | CPT/HCPCS: 80053; 85025 ==

== ENCOUNTER 2021-05-02 10:48 | Outpatient (CLI) | payer MEDICARE, OTHER, SELFPAY ==
--- NOTE | 2021-05-02 11:00 | USCV_ITS ---
Nimo Pressley Age: 70 Gender: F : 1950 Exam Date: 05/02/2021 10:57 Ordering Phys: Yvonne Santamaria MD ([email or web address]) Technologist: Guerda Arrington Exam Location: [facility] [place] Indication: LLE PAIN AND SWELLING HISTORY: Lower extremity swelling. Lower extremity pain. PROCEDURES: Venous duplex imaging was performed in only the left lower extremity. The following venous structures were evaluated: common femoral vein, profunda vein, proximal portion of the greater saphenous vein, superficial femoral vein, and the popliteal vein. In addition, the posterior tibial and peroneal trunk were evaluated. FINDINGS: Normal 2-D Doppler and augmentation and compressibility throughout the lower extremity venous structures. Additional imaging through the proximal calf veins also reveals no thrombus. Limited evaluation of the greater saphenous vein is patent with no thrombus. CONCLUSIONS No DVT left lower extremity. Dr. Lina Azul DO (Electronically Signed) Final Date: 02 May 2021 13:18 S
== END 2021-05-02 10:49 | disposition home or self-care (01) ==
LOC: RAD 10:52
PROVIDERS: PCP Family Medicine; Visit Provider Internal Medicine Cardiovascular Disease
DX: R60.9 Edema, unspecified (principal); I87.2 Venous insufficiency (chronic) (peripheral); M79.605 Pain in left leg; I70.209 Unspecified atherosclerosis of native arteries of extremities, unspecified extremity; Z79.01 Long term (current) use of anticoagulants
CPT/HCPCS: 85610; 93971

== ENCOUNTER → 2021-05-03 11:58 | Outpatient (BNVA) | payer MEDICARE, OTHER, SELFPAY | PROVIDERS: PCP Family Medicine; Visit Provider Nurse Practitioner Family | DX: I10 Essential (primary) hypertension (principal); R06.02 Shortness of breath; R60.9 Edema, unspecified; I73.9 Peripheral vascular disease, unspecified; F17.200 Nicotine dependence, unspecified, uncomplicated; L03.116 Cellulitis of left lower limb; I87.2 Venous insufficiency (chronic) (peripheral) | CPT/HCPCS: 83880 ==

== ENCOUNTER → 2021-05-09 08:33 | Outpatient (BNVA) | payer MEDICARE, OTHER, SELFPAY | PROVIDERS: PCP Family Medicine; Visit Provider Internal Medicine Cardiovascular Disease | DX: R06.02 Shortness of breath (principal); Z79.01 Long term (current) use of anticoagulants; I73.9 Peripheral vascular disease, unspecified; R60.9 Edema, unspecified; I10 Essential (primary) hypertension | CPT/HCPCS: 80048; 83735; 83880 ==

== ENCOUNTER → 2021-05-22 08:48 | Outpatient (BNVA) | payer MEDICARE, OTHER, SELFPAY | PROVIDERS: PCP Family Medicine; Visit Provider Internal Medicine Cardiovascular Disease | DX: R06.02 Shortness of breath (principal); I10 Essential (primary) hypertension; R60.9 Edema, unspecified; I73.9 Peripheral vascular disease, unspecified | CPT/HCPCS: 80048; 83735; 83880 ==

== ENCOUNTER 2021-05-27 01:48 | Inpatient (IN) | payer MEDICARE, OTHER, SELFPAY ==
[2021-05-27] VITALS (20 sets, daily range): BP systolic 93–213; BP diastolic 42–115; PULSE 68–102; RESP 16–33; TEMP 36.2–36.9; O2SAT 90–97; BMI 36.0
--- NOTE | 2021-05-27 02:07 | XRR_ITS ---
PROCEDURE INFORMATION: Exam: XR Chest Exam date and time: 05/27/2021 2:07 AM Age: 70 years old Clinical indication: Pain; Shortness of breath and tachypnea; Chest pressure; Prior surgery; Surgery type: Carotid; Patient HX: Chest tightness with SOB and tachypnea. Hypertensive. ; Additional info: Cp TECHNIQUE: Imaging protocol: XR of the chest. Views: 1 view. Total images: 1 COMPARISON: CT angio abd aorta runof [id number] 01/19/2020 8:41 AM FINDINGS: Lungs: No acute focal pulmonary opacities are detected. Pleural spaces: See Heart/Mediastinum finding. Heart/Mediastinum: Opacity at cardiac apex and left costophrenic angle felt to represent pericardial fat and minimal atelectasis and/or scarring as seen on prior CT. Bones/joints: Osseous structures are unchanged from the prior exam. XR/XR chest 1V portable [id number] IMPRESSION: 1. Opacity at cardiac apex and left costophrenic angle felt to represent pericardial fat and minimal atelectasis and/or scarring as seen on prior CT. 2. No acute focal pulmonary opacities are detected. Radiation Dose CTDIVOL = (mGy): DLP = (mGy-cm)
--- NOTE | 2021-05-27 02:07 | ECG_ITS ---
[facility] Test Date: 2021-05-27 Pat Name: Nimo Pressley Department: Room: Gender: Female Draw End Hand: : 1950 Requested By: Darryl Fernandes Order Number: [id number] Barbara MD: Itz Hale M.D. Measurements Intervals [place] Rate: 94 P: 100 IN: 168 QRS: 56 QRSD: 76 T: 72 QT: 351 QTc: 440 Interpretive Statements SINUS RHYTHM No previous ECG available for comparison Electronically Signed On 05-27-2021 21:29:35 CDT by Itz Hale M.D. [email or web address] hospitalNuluselect [facility].[email or web address]/store/[id number] f
[2021-05-27] MEDS: labetalol 5 mg/mL SDV 20mL 20 MG IVP (02:24)
[2021-05-27] MEDS: nitroglycerin 1 gm/inch oint Pkt 2 INCH TOPICAL (02:25)
[2021-05-27] MEDS: FUROsemide 10 mg/mL SDV 10mL 80 MG IVP (02:26)
--- NOTE | 2021-05-27 02:32 | W.ED.CHESTPA ---
HPI - Chest Pain General: Chief Complaint: Chest Pain Stated Complaint: L Arm Tingeling BLood Pressure High\Chest Tightnes Time Seen by Provider: 05/27/21 02:07 History of Present Illness: HPI narrative: 70-year-old female presents with shortness of breath, pain between her shoulder blades radiating down her left arm. This is started within the last 24 hours and has gotten worse this morning. She does not usually use oxygen. She states she has no stents in her heart. She does have peripheral vascular disease and is status post femoral popliteal bypass complaint: chest pain Pertinent past history: other Onset (ago): hour(s) Timing of current episode: constant Prior episodes: No Onset: during rest Pain location: substernal Pain radiation: left arm and back Quality: tightness Relieving factors: nothing Exacerbating factors: nothing Associated symptoms: Reports dyspnea, leg edema and sense of impending doom; Deny abdominal pain, diaphoresis, fever(s), nausea, palpitations or vomiting Review of Systems Const: Denies: fever(s) or diaphoresis Card: Reports: chest pain; Denies: palpitations Resp: Reports: dyspnea and wheezing; Denies: productive cough or non-productive cough GI: Denies: abdominal pain, nausea or vomiting Neuro: Denies: headache(s) PFSH ED PFSH: Medical History Carotid artery stenosis Dyslipidemia Femoral artery occlusion Hypertension PAD (peripheral artery disease) Smoker Surgical History S/P peripheral artery angioplasty with stent placement S/P vascular surgery Status post carotid surgery (~2012) bilateral Family History Other CAD (coronary artery disease) Social History Smoking and tobacco status: current every day smoker cigarettes Packs smoked per day: 1.5 Years cigarettes smoked: 25 Quit status (tobacco): considering quitting Second hand smoke exposure: Yes Alcohol intake: never Caregiver/support person: Yes Lives independently: Yes Household members: spouse Marital status: service: No Current occupational status: retired History of recent travel: No Current gender identity: Female Physical Exam Const: GENERAL APPEARANCE: in distress and ill appearing NUTRITIONAL APPEARANCE: overweight ORIENTATION/CONSCIOUSNESS: Yes awake, Yes oriented to person, Yes oriented to place and Yes oriented to time Eye: COMMON NORMALS: Equal, round and reactive pupils present and EOMs intact bilaterally PUPIL: Yes Equal, round and reactive pupils present Chest: COMMONS NORMALS: normal inspection of the chest Resp: COMMON NORMALS: clear to auscultation bilaterally EFFORT & INSPECTION: Yes tachypneic, Yes labored and Yes uses accessory muscles AUSCULTATION: clear to auscultation bilaterally and diminished lung sounds Cardio: COMMON NORMALS: regular rate and regular rhythm RATE: regular rate RHYTHM: regular rhythm GI: COMMON NORMALS: Normal to inspection, nondistended, normoactive bowel sounds present and Soft to palpation PALPATION: Yes Soft to palpation Neuro: SENSORIUM/ORIENTATION: Yes oriented to person, Yes oriented to place and Yes oriented to time Course Consultations: Consultation #1: gerhard Time: 04:24 Vital Signs: Vital signs: Vital Signs Temperature 97.1 F L 05/27/21 01:59 Pulse Rate 70 05/27/21 04:17 Respiratory Rate 16 05/27/21 04:17 Blood Pressure 151/88 05/27/21 04:17 Pulse Oximetry 94 05/27/21 04:17 MDM - Chest Pain MDM Narrative: Medical decision making narrative: Alert 70-year-old female complaining of pain between her shoulder and shortness of breath. Chest x-ray showed small effusions with some vascular congestion. No consolidations. EKG shows a sinus rhythm with no acute ST changes and a normal axis. Her rate is 90. Blood pressure was significantly elevated on arrival. She was given Nitropaste, labetalol, and 80 mg of Lasix. She is just now beginning to diurese some. Her hemoglobin is 16.7. Her sodium is 115. It was 133 last week. His creatinine is 1. She was hypoxic, and placed on oxygen with improvement in her breathing. Blood pressure is now 151/88, heart rate 79. Her first troponin is minimally elevated at 14 her BNP is only in the 200s. This could be flash pulmonary edema versus some other etiology of pain/shortness of breath such as her COPD, although she is not wheezing on exam. She will be admitted. We will obtain arterial blood gas in the ER prior to admission. Lab Data: Labs: Lab Results 05/27/21 05/27/21 05/27/21 02:07 02:07 02:07 WBC 11.7 10^3/uL H 10 ^3/uL (4.0-10.0) RBC 5.83 10^6/uL H 10 ^6/uL (4.1-5.3) Hgb 16.7 g/dL H g/dL (11.5-15.3) Hct 49.3 % H % (37.0-47.0) MCV 84.6 fl fl (81-99) MCH 28.6 pg pg (28.0-34.0) MCHC 33.9 g/dL g/dL (30.0-36.0) RDW 13.3 % % (12.1-15.1) Plt Count 218 10^3/cmm 10^3 /cmm (130-400) MPV 10.8 fL H fL (7.4-10.4) Neut % (Auto) 81.2 % % Lymph % (Auto) 6.8 % % [place] % (Auto) 9.2 % % Eos % (Auto) 1.6 % % Baso % (Auto) 0.4 % % Neut # (Auto) 9.48 10^3/uL H 10 ^3/uL (1.8-7.7) Lymph # (Auto) 0.8 10^3/uL 10^3/ uL (0.8-4.8) [place] # (Auto) 1.1 10^3/uL H 10^ 3/uL (0.2-0.9) Eos # (Auto) 0.2 10^3/uL 10^3/ uL (0.0-0.8) Baso # (Auto) 0.1 10^3/uL 10^3/ uL (0.0-0.1) Nucleated RBC % (a uto) 0 % % Nucleated RBCs # 0.0 /100WBC /100W BC PT 27.90 SECONDS H S ECONDS (12.1-14.9) INR 2.56 H (0.8-1.2) APTT 52.6 SECONDS H SE CONDS (23.9-36.7) Sodium 115 mmol/L L* mmo l/L (136-145) Potassium 4.0 mmol/L mmol/L (3.5-5.1) Chloride 76 mmol/L L mmol/ L (98-107) Carbon Dioxide 27 mmol/L mmol/L (22-29) Anion Gap 16.0 (5-19) BUN 17 mg/dL mg/dL (8-23) Creatinine 1.0 mg/dL H mg/dL (0.5-0.9) GFR Calculation Not Reportable Glucose 92 mg/dL mg/dL (65-115) Calculated Osmolal ity 241 mOsm/kg L mOs m/kg (285-295) Calcium 9.4 mg/dL mg/dL (8.5-10.5) Total Bilirubin 0.6 mg/dL mg/dL (0.15-1.2) AST 24 U/L U/L (0-32) ALT 22 U/L U/L (0-33) Alkaline Phosphata se 209 IU/L H IU/L (35-105) Troponin T Baselin e NT-Pro-B Natriuret Pep 237 pg/mL H pg/mL (0-125) Total Protein 8.0 g/dL g/dL (6.6-8.7) Albumin 4.2 g/dL g/dL (3.5-5.2) Globulin 3.8 g/dL g/dL (1.3-4.6) 05/27/21 02:07 WBC RBC Hgb Hct MCV MCH MCHC RDW Plt Count MPV Neut % (Auto) Lymph % (Auto) [place] % (Auto) Eos % (Auto) Baso % (Auto) Neut # (Auto) Lymph # (Auto) [place] # (Auto) Eos # (Auto) Baso # (Auto) Nucleated RBC % (a uto) Nucleated RBCs # PT INR APTT Sodium Potassium Chloride Carbon Dioxide Anion Gap BUN Creatinine GFR Calculation Glucose Calculated Osmolal ity Calcium Total Bilirubin AST ALT Alkaline Phosphata se Troponin T Baselin e 14 ng/L H ng/L (0-10) NT-Pro-B Natriuret Pep Total Protein Albumin Globulin Discharge Plan Discharge Patient Disposition: Admitted As Inpatient Clinical Impression: Acute hyponatremia Respiratory failure Qualifiers: Chronicity: acute Respiratory failure complication: hypoxia Qualified Code(s): J96.01 - Acute respiratory failure with hypoxia Condition: Serious Coding Level of Care Code ED Mechanical Facilities Technician for [facility] Fwd Exam Detailed
[2021-05-27 02:38] LABS: Basophils # 0.1 10^3/uL (0.0-0.1); Basophils % 0.4 %; Eosinophils # 0.2 10^3/uL (0.0-0.8); Eosinophils % 1.6 %; Hematocrit 49.3 % (37.0-47.0); Hemoglobin 16.7 g/dL (11.5-15.3); Lymphocytes # 0.8 10^3/uL (0.8-4.8); Lymphocytes % 6.8 %; Mean Corpuscular HGB Conc 33.9 g/dL (30.0-36.0); Mean Corpuscular Hemoglobin 28.6 pg (28.0-34.0); Mean Corpuscular Volume 84.6 fl (81-99); Mean Platelet Volume 10.8 fL (7.4-10.4); Monocytes # 1.1 10^3/uL (0.2-0.9); Monocytes % 9.2 %; Neutrophils # 9.48 10^3/uL (1.8-7.7); Neutrophils % 81.2 %; Nucleated Red Blood Cells % 0 %; Platelet Count 218 10^3/cmm (130-400); Red Blood Count 5.83 10^6/uL (4.1-5.3); Red Cell Distribution Width 13.3 % (12.1-15.1); White Blood Count 11.7 10^3/uL (4.0-10.0)
[2021-05-27 02:53] LABS: INR 2.56 (0.8-1.2)
[2021-05-27 02:54] LABS: Partial Thromboplastin Time 52.6 SECONDS (23.9-36.7)
[2021-05-27 03:03] LABS: Troponin(5th) Baseline 14 ng/L (0-10)
[2021-05-27 03:16] LABS: Alanine Aminotransferase 22 U/L (0-33); Albumin Level 4.2 g/dL (3.5-5.2); Alkaline Phosphatase 209 IU/L (35-105); Aspartate Amino Transferase 24 U/L (0-32); Blood Urea Nitrogen 17 mg/dL (8-23); Calcium 9.4 mg/dL (8.5-10.5); Carbon Dioxide 27 mmol/L (22-29); Chloride 76 mmol/L (98-107); Globulin 3.8 g/dL (1.3-4.6); Glucose 92 mg/dL (65-115); NT Pro B Type Natriuretic Pept 237 pg/mL (0-125); Osmolality Calculated 241 mOsm/kg (285-295); Total Bilirubin 0.6 mg/dL (0.15-1.2)
[2021-05-27 03:17] LABS: Sodium 115 mmol/L (136-145)
--- NOTE | 2021-05-27 04:07 | ECG_ITS ---
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 Measurements Intervals [place] Rate: 69 P: 76 MN: 180 QRS: 43 QRSD: 77 T: 65 QT: 421 QTc: 452 Interpretive Statements SINUS RHYTHM WITH OCCASIONAL SUPRAVENTRICULAR PREMATURE COMPLEXES Compared to ECG 05/27/2021 02:00:44 No significant changes Electronically Signed On 05-27-2021 21:39:33 CDT by Itz Hale M.D. [email or web address]pointstr[facility] hospitalPat[facility].WebMD/store/OM/[id number]
[2021-05-27 04:44] LABS: ABG PCO2 50.8 mmHg (35-45); ABG PH Result 7.41 (7.35-7.45); Arterial Blood Gas Hematocrit 52.5 % (37-47); Base Excess ABG 5.8 mmol/L (-2.0-2.0); Blood Gas Allen Test Pos; Blood Gas Sample Site Radial, right; Blood Gas Sample Type Arterial; HCO3 ABG 32.1 mmol/L (22-26); Oxygen Device NC; PO2 ABG 66.8 mmHg (80.0-100.0)
--- NOTE | 2021-05-27 04:46 | PC.NURSE ---
report called to Bella PÉREZ
--- NOTE | 2021-05-27 05:04 | USCV_ITS ---
Nimo Pressley Age: 70 Gender: F : 1950 Exam Date: 05/27/2021 06:35 Ordering Phys: Zeynep Chacon MD Technologist: Mavis Jarrell Exam Location: [facility] [place] Indication: CHF BP: 185 / 81 HR: 74 Rhythm: Sinus Technical Quality: Suboptimal MEASUREMENTS (Male / Female) Normal Values 2D ECHO LV Diastolic Diameter PLAX 3.3 cm 4.2 - 5.9 / 3.9 - 5.3 cm LV Systolic Diameter PLAX 2.1 cm LV Chamber Size 2.8 cm IVS Diastolic Thickness 1.2 cm 0.6 - 1.0 / 0.6 - 0.9 cm IVS Systolic Thickness 1.5 cm LVPW Diastolic Thickness 0.8 cm 0.6 - 1.0 / 0.6 - 0.9 cm LVPW Systolic Thickness 1.4 cm RV Chamber Size 2.0 cm LVOT Diameter 1.8 cm LV Ejection Fraction 2D Teich 68.1 % LV Ejection Fraction MOD 2C 65.0 % LV Ejection Fraction 2C AL 67.9 % LA Diameter 3.7 cm LA Width 2.3 cm LA Height 4.7 cm RA Width 2.2 cm RA Height 3.8 cm Aorta at Sinotubular Diameter 2.1 cm M-MODE LV Diastolic Diameter MM 4.9 cm 4.2 - 5.9 / 3.9 - 5.3 cm LV Systolic Diameter MM 2.9 cm LV Ejection Fraction MM Teich 71.1 % IVS Diastolic Thickness MM 1.7 cm 0.6 - 1.0 / 0.6 - 0.9 cm IVS Systolic Thickness MM 1.8 cm LVPW Diastolic Thickness MM 1.0 cm 0.6 - 1.0 / 0.6 - 0.9 cm LVPW Systolic Thickness MM 1.9 cm RV Diastolic Diameter MM 0.7 cm Aortic Annulus Diameter 2.9 cm LA Ao Ratio MM 1.7 DOPPLER AV Peak Velocity 121.0 cm/s LVOT Peak Velocity 99.0 cm/s AV Area Cont Eq vti 2.8 cm squared AV Area Cont Eq pk 2.1 cm squared MV Area PHT 4.8 cm squared Mitral E to A Ratio 0.7 MV E' Velocity 45.0 cm/s Mitral E to MV E' Ratio 14.9 Mitral E to LV E' Lateral Ratio 14.7 Mitral E to LV E' Septal Ratio 15.2 TV Peak E Velocity 58.0 cm/s Right Atrial Pressure 3.0 mmHg PV Peak Velocity 81.0 cm/s RV Acceleration Time 0.1 s RV Ejection Time 0.3 s RV AcT/ET 0.4 FINDINGS Left Ventricle Normal left ventricular size. LV systolic function is normal with EF of 55-60%. No regional wall motion abnormalities. Grade 1 diastolic dysfunction. Right Ventricle The right ventricle is normal in size and function. Right Atrium The right atrium is normal in size. Normal RA pressure Left Atrium The left atrium is normal in size. Mitral Valve Structurally normal mitral valve without significant stenosis or prolapse. There is no mitral regurgitation. Aortic Valve Grossly normal without significant stenosis. There is no aortic regurgitation. Tricuspid Valve Structurally normal tricuspid valve without significant stenosis or regurgitation. Insufficient TR jet to calculate RVSP. Pulmonic Valve Structurally normal pulmonic valve without significant stenosis. There is no pulmonic regurgitation. Pericardium Normal pericardium without effusion. Aorta Normal ascending aorta dimension. CONCLUSIONS LV systolic function is normal with EF of 55 to 60%. Grade 1 diastolic dysfunction. No significant valvular dysfunction seen. No comparison studies are noted. Itz Hale MD (Electronically Signed) Final Date: 27 May 2021 13:41 S
--- NOTE | 2021-05-27 05:04 | CTR_ITS ---
PROCEDURE INFORMATION: Exam: CT Chest Without Contrast; Diagnostic Exam date and time: 05/27/2021 5:04 AM Age: 70 years old Clinical indication: Abdominal pain; Other: SOB; Additional info: Abdominal distension, increasig le edema TECHNIQUE: Imaging protocol: Diagnostic computed tomography of the chest without contrast. Radiation optimization: All CT scans at this facility use at least one of these dose optimization techniques: automated exposure control; mA and/or kV adjustment per patient size (includes targeted exams where dose is matched to clinical indication); or iterative reconstruction. COMPARISON: CR (CHEST, ) 05/27/2021 2:10 AM RADIATION DOSE METRICS: Total DLP (mGy-cm): 1589.49 FINDINGS: Lungs: Hyperinflation, interstitial prominence, and mild parenchymal stranding. Pleural spaces: No pleural effusion. Heart: Coronary artery calcification. Aorta: Calcification of the normal caliber thoracic aorta. Lymph nodes: Calcified lymph nodes in association with chronic granulomatous disease. Additional subcentimeter and fatty replaced noncalcified lymph nodes. Bones/joints: Osteopenia, degenerative change, and chronic compression deformities. Soft tissues: Left breast calcification. IMPRESSION: 1. Hyperinflation, interstitial prominence, and mild parenchymal stranding. 2. Additional findings as described above. PROCEDURE INFORMATION: Exam: CT Abdomen And Pelvis Without Contrast Exam date and time: 05/27/2021 5:04 AM Age: 70 years old Clinical indication: Abdominal pain; Other: SOB; Additional info: Abdominal distension, increasig le edema TECHNIQUE: Imaging protocol: Computed tomography of the abdomen and pelvis without contrast. Radiation optimization: All CT scans at this facility use at least one of these dose optimization techniques: automated exposure control; mA and/or kV adjustment per patient size (includes targeted exams where dose is matched to clinical indication); or iterative reconstruction. COMPARISON: None RADIATION DOSE METRICS: Total DLP (mGy-cm): 1589.49 FINDINGS: Detailed evaluation of the abdominal and pelvic viscera is somewhat limited in the absence of intravenous contrast. Liver: No focal hepatic mass. Gallbladder and bile ducts: Unremarkable gallbladder. Pancreas: No pancreatic mass or ductal dilatation. Spleen: No splenomegaly. Adrenal glands: Subtle right adrenal nodularity. Kidneys and ureters: Renal cysts, including a 3.2 cm cyst arising from the superomedial aspect of the left kidney. Renal vascular calcification. No hydronephrosis. Stomach and bowel: Small bowel dilatation without a transition zone. Scattered diverticula, without pericolonic inflammation. Appendix: No acute appendicitis. Intraperitoneal space: No significant free fluid. Vasculature: Prominent vascular calcification. No abdominal aortic aneurysm. Lymph nodes: Subcentimeter lymph nodes. Urinary bladder: Normal bladder morphology. Reproductive: Unremarkable as visualized. Bones/joints: Osteopenia. Degenerative change and disc bulging. Grade 1 anterolisthesis of L4 on L5. Soft tissues: Fat containing umbilical hernia. CT/CT chest abd pel wo con IMPRESSION: 1. No acute inflammatory process in the abdomen or pelvis. 2. Additional findings as described above. COMMENTS: Consistent with the [employer]'s Incidental Findings Committee white paper (J Am Alexa Radiol 2018): Any incidental renal lesion less than 1 cm or classified as too small to characterize, or any incidental cystic renal lesion characterized as simple-appearing, is likely benign. No follow-up imaging is recommended for these lesions per consensus recommendations based on imaging criteria. Radiation Dose CTDIVOL = (mGy): DLP = 1589.49~1589.49 (mGy-cm)
--- NOTE | 2021-05-27 05:04 | CTR_ITS ---
PROCEDURE INFORMATION: Exam: CT Head Without Contrast Exam date and time: 05/27/2021 5:04 AM Age: 70 years old Clinical indication: Altered mental status/memory loss; Additional info: Hyponatremia, confusion TECHNIQUE: Imaging protocol: Computed tomography of the head without contrast. Radiation optimization: All CT scans at this facility use at least one of these dose optimization techniques: automated exposure control; mA and/or kV adjustment per patient size (includes targeted exams where dose is matched to clinical indication); or iterative reconstruction. COMPARISON: No relevant prior studies available. RADIATION DOSE METRICS: Total DLP (mGy-cm): 716.82 FINDINGS: Brain: Moderate white matter disease and volume loss are identified. There is no acute infarct or edema. No hemorrhage. Cerebral ventricles: No ventriculomegaly. Paranasal sinuses: Visualized sinuses are unremarkable. No fluid levels. Mastoid air cells: Visualized mastoid air cells are well aerated. Bones/joints: Unremarkable. No acute fracture. Soft tissues: Unremarkable. Other findings: This study is compromised by patient motion. CT/CT head wo con* [id number] IMPRESSION: There are no acute concerning abnormalities. Radiation Dose CTDIVOL = (mGy): DLP = 716.82 (mGy-cm)
[2021-05-27 05:07] LABS: Troponin 5 2HR 12.86 ng/L (0-10)
[2021-05-27 05:08] LABS: Troponin 5 2HR Delta -1.14 ABS# (0-10)
[2021-05-27 05:41] LABS: Cortisol Random 25.24 ug/dL (2.47-19.5); Thyroid Stimulating Hormone 2.55 uIU/mL (0.27-4.20)
[2021-05-27] MEDS: FUROsemide 10 mg/mL SDV 4mL 40 MG IVP (05:51)
[2021-05-27] MEDS: lisinopril 20 mg Tablet 40 MG PO (05:52)
[2021-05-27 06:26] LABS: Add Urine Microscopic? NO; Charge for UA Resulting for Rev
--- NOTE | 2021-05-27 06:27 | PC.NURSE ---
Admit Note Patient admitted to [facility] from ED via wheelchair. Dr Chacon is aware. Covering service notified. Patient presents with increased work of breathing and chest pain. Orders reviewed & will continue to monitor. Patient and/or sales representative electric service oriented to environment, equipment, and informed of the following as found in the admission booklet: patient rights & responsibilities, visitor policy, hand and respiratory hygiene practice. Other education includes: lisinopril and furosemide. Patient verbalized complete understanding. Patient noted to have increased SOB with any exertion. Patient placed on 2L NC in ED. Patient stated, When I get swollen with all this fluid it becomes difficult for me to breathe. Patient given furosemide and lisinopril as ordered. Patient is able to get up to [facility] with standby assist. .
[2021-05-27 06:36] LABS: Specific Gravity, Urine 1.005 (1.005-1.030); Urine Appearance Clear (CLEAR); Urine Color Straw (Yellow); pH Urine 7 (5-7)
[2021-05-27 06:37] LABS: Bilirubin Urine Neg (Negative); Blood Urine Neg (Negative); Glucose Urine UA Norm (Normal); Ketones Urine Negative (Negative); Leukocyte Esterase Urine Negative (Negative); Nitrate Urine Negative (Negative); Protein Urine Neg (Negative); Urobilinogen Urine Norm (Negative)
--- NOTE | 2021-05-27 06:45 | PM.HP ---
Providers/Chief Complaint Admitting Physician: Zeynep Chacon MD Primary Care Provider: Gurwinder Lomeli DO Chief Complaint: L Arm Tingeling BLood Pressure High\Chest Tightnes History of Present Illness Nimo Pressley is a 70 year old female with hypertension, history of carotid stenosis s/p bilateral carotid endarterectomies November 2012 , PAD s/p left femoral-popliteal bypass and stenting, currently on a/c with coumadin for PAD, chronic active smoker presented to the ER today after waking up with pressure like sensation in the jaw and left shoulder. Checked her BP at home which was >200mmHG systolic on repeated checks, so presented to ER for evaluation. Here noted to have 213/106, recived 20mg iv labetalol and 2 inch nitro paste following which BP was better controlled at 151/88mmg. EKG shows a sinus rhythm with no acute ST changes, baseline troponin 14, 2 hr at 12.86, negative delta at -1.86. ROS positive for recent increasing LE swelling and abdominal distension since mid April for which she was seen by her outpatient fitness plan coordinator, dose of lasix increased to 40mg po BID and metolazone added. Abdomen CT was ordered but has not yet been completed. Her PCP perfromed a LE duplex on 05/02 which was negative for DVT. Bactrim is noted on her home medication list, uncertain if currently taking it. Noted also to have new 02 requirement at 2lpm, per review of PCP notes, she was noted to have 02 sat of 88% on visits from april in office. Review of Systems General: Reports: 10 or more systems reviewed and unremarkable except in HPI and below Const: Denies: fever(s), chills or body aches Eyes: Denies: change in vision, blurry vision or photophobia ENMT: Reports: hoarseness; Denies: throat pain, enlarged tonsils, odynophagia or nasal congestion Card: Denies: chest pain, palpitations, irregular heart rhythm, edema, swelling of feet/ankles, lightheadedness, pre-syncope, dyspnea on exertion or orthopnea Resp: Denies: dyspnea, productive cough, non-productive cough, wheezing, stridor, pain on inspiration, change in phlegm color, hemoptysis or chest congestion GI: Denies: abdominal pain, nausea, vomiting, hematemesis, coffee ground emesis, dysphagia, heartburn, diarrhea, constipation, GI cramping, change in stool character, hematochezia or melena : Denies: flank pain, difficulty voiding, dysuria, urinary frequency, urinary urgency, urinary hesitancy or hematuria Musc: Denies: neck pain, back pain, extremity pain, joint swelling, joint warmth or deformity Neuro: Denies: headache(s), numbness in extremities, weakness in extremities, sensory changes, difficulty walking, frequent falls, dizziness, vertigo, behavioral changes, Slurred speech present or seizure-like activity Psych: Denies: anxiety, depression, suicidal ideation or homicidal ideation Endo: Denies: polyuria, polydipsia, tired all the time, cold intolerance or hot flashes Layo/Lymph: Denies: easy bruising or easy bleeding Medications/Allergies Home Medications Medication Instructions Recorded Confirmed Last Taken Type pantoprazole 40 mg tablet,delayed 40 mg PO DAILY #90 tab 07/29/20 05/18/21 Unknown Rx release atorvastatin 80 mg tablet See Rx Instructions .ROUTE 11/24/20 05/18/21 Unknown Rx .COMPLEX #90 tab warfarin 4 mg tablet 4 mg PO DIRECTED #90 tab 02/13/21 05/27/21 05/26/21 08:00 Rx albuterol sulfate 90 mcg/actuation 1 puff INHALATION QID PRN #8.5 g 04/26/21 05/18/21 Unknown Rx aerosol inhaler carvedilol 6.25 mg tablet 6.25 mg PO BID #60 tab 05/02/21 05/18/21 Unknown Rx furosemide 40 mg tablet 40 mg PO BID #60 tab 05/21/21 05/21/21 Unknown Rx sulfamethoxazole 800 1 tab PO BID #10 tab 05/21/21 05/21/21 Unknown Rx mg-trimethoprim 160 mg tablet metolazone 2.5 mg tablet 2.5 mg PO DAILY #30 tab 05/22/21 05/22/21 Unknown Rx potassium chloride 20 mEq 20 meq PO BID #60 tab 05/22/21 05/22/21 Unknown Rx tablet,extended release Allergies Allergy/AdvReac Type Severity Reaction Status Date / Time No Known Allergies Allergy Verified 05/18/21 08:44 PFSH Acute PFSH: Medical History Carotid artery stenosis Dyslipidemia Femoral artery occlusion Hypertension PAD (peripheral artery disease) Smoker Surgical History S/P peripheral artery angioplasty with stent placement S/P vascular surgery Status post carotid surgery (~2012) bilateral Family History Other CAD (coronary artery disease) Social History Smoking and tobacco status: current every day smoker cigarettes Packs smoked per day: 1.5 Years cigarettes smoked: 25 Quit status (tobacco): considering quitting Second hand smoke exposure: Yes Alcohol intake: never Caregiver/support person: Yes Lives independently: Yes Household members: spouse Marital status: service: No Current occupational status: retired History of recent travel: No Current gender identity: Female Vitals/I&O/Wt Last Vital Signs Temp 98.5 F 05/27/21 05:30 Pulse 77 05/27/21 05:30 Resp 27 H 05/27/21 05:30 BP 185/81 05/27/21 05:30 Pulse Ox 96 05/27/21 04:47 05/26/21 05/26/21 05/27/21 14:59 22:59 06:59 Output Total 450 / 450 Balance -450 / -450 Weight last 48 hrs Weight 95.663 kg Weight 95.254 kg Physical Exam Narrative: EXAM NARRATIVE: General: No acute distress, AO x3 HEENT: PERRLA, pupils bilaterally equal and reactive, pallors not present Chest: Normal vesicular breath sounds, no added sounds, equal good air entry bilaterally CVS: S1-S2 regular, no murmurs, no tachycardia, no gallops, no rubs Abdomen: Soft, nontender, no organomegaly, bowel sounds present Neuro: No focal deficits, no facial deformity, AO x3, power 5/5 in all limbs Const: COMMON NORMALS: no acute distress, average body habitus, patient oriented x3, no limitations, alert and well nourished HENMT: COMMON NORMALS: normocephalic and atraumatic HEAD & SCALP: normocephalic and atraumatic Eye: COMMON NORMALS: Equal, round and reactive pupils present, EOMs intact bilaterally, conjunctivae normal and no scleral icterus CONJUNCTIVA: Yes conjunctivae normal PUPIL: Yes Equal, round and reactive pupils present Neck/C-Spine: COMMON NORMALS: no JVD Resp: COMMON NORMALS: normal respiratory effort, No retractions, No use of accessory muscles, clear to auscultation bilaterally and percussion normal AUSCULTATION: clear to auscultation bilaterally PERCUSSION: percussion normal Cardio: COMMON NORMALS: no JVD, regular rate, regular rhythm, S1 normal heart sound present, S2 normal heart sound present, No gallops present (Cardio), No clicks present (Cardio), No murmurs present (Cardio), No rub (Cardio) and Peripheral pulses 2+ throughout RATE: regular rate RHYTHM: regular rhythm HEART SOUNDS: S1 normal heart sound present and S2 normal heart sound present PERIPHERAL PULSES: Peripheral pulses 2+ throughout GI: COMMON NORMALS: Normal to inspection, nondistended, normoactive bowel sounds present, Soft to palpation, non-tender, No hepatosplenomegaly present, no masses and no bruits PALPATION: Yes Soft to palpation and Yes No hepatosplenomegaly present Extremity: COMMON NORMALS: normal to inspection, full ROM, capillary refill normal, no joint enlargement, no clubbing, cyanosis or edema, no calf tenderness and no pedal edema Neuro: COMMON NORMALS: patient oriented x3, CN's II-XII intact bilaterally, moves all extremities, no focal motor deficits, no sensory deficits noted, deep tendon reflexes 2+ bilaterally and gait normal SENSORIUM/ORIENTATION: Yes alert Psych: COMMON NORMALS: mental status grossly normal, Normal thought process present, cooperative, normal affect, speech normal, activity/motor behavior normal, denies hallucinations, denies homicidal ideation and denies suicidal ideation SPEECH: Yes normal speech THOUGHT PROCESS: Normal thought process present Skin: COMMON NORMALS: no rashes or lesions noted, no wounds, turgor normal, no jaundice, no petechiae and no mottling GENERAL SKIN EXAM: no rashes or lesions noted and turgor normal Data : 05/27/21 02:07 05/27/21 02:07 A&P Assessment and plan (1) Acute hyponatremia: Status: Acute (2) Abdominal distention: Status: Acute (3) Chest pain: Status: Acute Qualifiers: Chest pain type: unspecified Qualified Code(s): R07.9 - Chest pain, unspecified (4) Uncontrolled hypertension: Status: Acute Additional A&P Information Patient presenting today with hypertensive urgency, jaw and left arm pain, found to have acute hyponatremia on labs along, CXR with left side pleural effusion. # Hypertensive urgency Currently BP improved after iv labetalol and nitropaste Resume home dose of lisnopril 40mg qam Further addition of medications based on BP response # Jaw pain, left arm pain no acute ST_T wave changes Trop 2 hr delta negative , low suspicion for ACS # Anasarca LE swelling, abdominal distension and left pleural effusion CT abd/pelvis recently ordered as outpatient, not completed, will order today. Assess for ascites, cirrhosis lasix 40mg iv q12h continue metolazone monitor I/O BNP not significantly elevated # Acute hyponatremia MAy be related to hypervolemia vs SIADH from recent bactrim use check urine lytes fluid restriction 1500cc/d received lasix 80mg IVP recheck Na at 8AM Ct head to r/o intracranial lesions # Hypoxia, noted previously on PMD visits as well, documented at 88% on RA, currently saturating well with 2lpm CXR with left pleural effusion CT chest ordered to evalute for underlying lung mass with effusion given hyponatremia low suspicion for PE given INR within range on Coumadin # PAD continue warfarin, INR 2.5 DVT ppx: On coumadin Full code Attestations Medical Necessity Statement*: >2midnight admission anticipated for above defined care Coding Level of Care Code Acute Graphics Artist for [facility] Diagnoses Acute hyponatremia E87.1 Abdominal distention R14.0 Chest pain R07.9 Chest pain type: unspecified Uncontrolled hypertension I10
[2021-05-27 06:49] LABS: Potassium, Radom Urine 26 mmol/L; Urine Random Chloride 74 mmol/L; Urine Random Sodium 69 mmol/L
--- NOTE | 2021-05-27 08:07 | ECG_ITS ---
[facility] Test Date: 2021-05-27 Pat Name: Nimo Pressley Department: Room: 105 Gender: Female Continuity Person: : 1950 Requested By: Darryl Fernandes Order Number: [id number] Barbara MD: Itz Hale M.D. Measurements Intervals [place] Rate: 79 P: 52 MD: 182 QRS: 30 QRSD: 68 T: 56 QT: 383 QTc: 441 Interpretive Statements SINUS RHYTHM ST ELEVATION, LIKELY EARLY REPOLARIZATION Compared to ECG 05/27/2021 05:26:16 ST (T wave) deviation now present Myocardial infarct finding now present Electronically Signed On 05-27-2021 21:39:25 CDT by Itz Hale M.D. [id number]
[2021-05-27] MEDS: acetaminophen 325 mg Tablet 650 MG PO (08:12)
[2021-05-27] MEDS: carvedilol 6.25 mg Tablet PO (08:13)
[2021-05-27] MEDS: atorvastatin 40 mg Tablet 80 MG PO (08:13)
[2021-05-27] MEDS: pantoprazole DR 40 mg Tablet PO (08:13)
[2021-05-27] MEDS: metOLazone 5 MG Tablet 2.5 MG PO (08:13)
--- NOTE | 2021-05-27 09:00 | PC.NURSE ---
Applied warm compress Pt reported of neck pain, upper back pain and muscle cramps all over body. Tylenol given as standing order for mild to mod pain. Informed DrDanielle of 3rd ekg has changes as seen.
[2021-05-27 09:36] LABS: Alanine Aminotransferase 22 U/L (0-33); Albumin Level 4.2 g/dL (3.5-5.2); Alkaline Phosphatase 174 IU/L (35-105); Aspartate Amino Transferase 25 U/L (0-32); Blood Urea Nitrogen 17 mg/dL (8-23); Calcium 9.3 mg/dL (8.5-10.5); Carbon Dioxide 29 mmol/L (22-29); Chloride 76 mmol/L (98-107); Globulin 3.2 g/dL (1.3-4.6); Glucose 117 mg/dL (65-115); Osmolality Calculated 245 mOsm/kg (285-295); Total Bilirubin 0.7 mg/dL (0.15-1.2); Total Protein 7.4 g/dL (6.6-8.7)
[2021-05-27 09:37] LABS: Troponin 5 6HR 20.38 ng/L (0-10); Troponin 5 6HR Delta 6.38 ng/L (0-12)
[2021-05-27 10:00] LABS: Sodium 116 mmol/L (136-145)
[2021-05-27] MEDS: sodium chloride 0.9% 1,000 ML 75 ML IV (10:03)
[2021-05-27 10:36] LABS: Iron 67 ug/dL (37-145); Total Iron Binding Capacity 319 mcg/dl; Unsaturated Iron Binding 252 ug/dL (112-347)
[2021-05-27] MEDS: ipratropium-albuterol 3 mL Neb INHALATION ×2 (12:20→19:25)
--- NOTE | 2021-05-27 13:00 | P.PN_ITS ---
Subjective Subjective: Interval history: Admitted overnight for hypertensive urgency and hyponatremia. Examination laying comfortably in bed on 2 L oxygen supplementation saturating 94%. Blood pressure 94/50 mmHg. Heart rate well controlled. Denies any nausea vomiting, headache. Complaining of weakness. Denies chest pain. Vitals/I&O/Wt Last Vital Signs Temp 98.3 F 05/27/21 08:00 Pulse 84 05/27/21 12:25 Resp 22 H 05/27/21 12:25 BP 94/42 05/27/21 12:00 Pulse Ox 93 05/27/21 12:25 05/26/21 05/27/21 05/27/21 22:59 06:59 14:59 Output Total 450 / 450 100 / 100 Balance -450 / -450 -100 / -100 Weight last 48 hrs Weight 95.663 kg Weight 95.254 kg Physical Exam Narrative: EXAM NARRATIVE: General: No acute distress, AO x3, dehydrated HEENT: PERRLA, pupils bilaterally equal and reactive, pallors not present Chest: Bilateral bronchial breath sounds, occasional rhonchi over the lung long, equal good air entry bilaterally CVS: S1-S2 regular, no murmurs, no tachycardia, no gallops, no rubs Abdomen: Soft, nontender, no organomegaly, bowel sounds present Neuro: No focal deficits, no facial deformity, AO x3, power 5/5 in all limbs Data : 05/27/21 02:07 05/27/21 08:21 Micro: Microbiology 05/27/21 06:05 Legionella Urinary Antigen - Final Unknown Source A&P Assessment and plan (1) Acute hyponatremia: Status: Acute (2) Uncontrolled hypertension: Status: Acute (3) SOB (shortness of breath): Status: Acute (4) COPD (chronic obstructive pulmonary disease): Status: Acute (5) Smoker: Status: Acute (6) Hypertension: Status: Acute Qualifiers: Hypertension type: essential hypertension Qualified Code(s): I10 - Essential (primary) hypertension (7) Abdominal distention: Status: Acute (8) Chest pain: Status: Acute Qualifiers: Chest pain type: unspecified Qualified Code(s): R07.9 - Chest pain, unspecified Additional A&P Information Patient presenting today with hypertensive urgency, jaw and left arm pain, found to have acute hyponatremia on labs along, CXR with left side pleural effusion. # Hypertensive urgency: Blood pressure better. Goal blood pressure less than 14 0/90 mmHg. Continue with home dose of carvedilol, lisinopril. We will continue to monitor. # Jaw pain, left arm pain: Most likely secondary to hypertensive urgency. Troponin delta negative. Low suspicion for ACS but cannot rule out demand ischemia. Patient would benefit from stress test prior to discharge. Check HbA1c, lipid panel. Acute hyponatremia: Most likely secondary to dehydration from diuretics but cannot rule out SIADH. Urine studies appreciated. Patient has been on diuretics as an outpatient with Lasix and metolazone. Which can cause letter in urine studies. Low serum osmolality, urine sodium 69. Sodium improved from 1 15-1 16 since admission. Likely secondary dehydration. Hold off on diuretics. Start on IV fluids with normal saline at 75 cc/h. Check BMP every [address] head, CT chest abdomen pelvis still awaited to rule out intracranial lesion, lung mass given history of chronic smoking and axillary lymphadenopathy. Anasarca: Unknown cause. LFTs within normal limit. No history of liver disorder. Could be secondary to right-sided dysfunction from COPD. proBNP normal. No history of CHF in the past. Has been on diuretics. Echocardiogram results awaited. Hypoxia: Could be secondary to COPD. proBNP within normal limits. Chronic smoker. Start patient on DuoNebs every 6 hour, budesonide twice daily. Patient would need pulmonary function test as an outpatient. Low suspicion of PE as patient is already on warfarin and is therapeutic. Lower limb edema: History of peripheral arterial disease: S/p left femoropopliteal bypass. On chronic anticoagulation with warfarin for same. Dopplers negative for DVT. Full code. Cardiac diet. Warfarin have a DVT prophylaxis. Protonix for PUD prophylaxis. Full code Attestations Medical Necessity Statement*: Requires further hospitalization for further evaluation and management of acute hyponatremia, hypertension, anasarca, new hypoxia Time Spent in Patient Care: Greater than 35 minutes (>than 50% of time spent in counselling and/or direct pt care on unit) . Coding Level of Care Code Acute Help Desk Intern for [facility] Fwd Diagnoses Acute hyponatremia E87.1 Uncontrolled hypertension I10 SOB (shortness of breath) R06.02 COPD (chronic obstructive pulmonary disease) J44.9 Smoker F17.200 Hypertension I10 Hypertension type: essential hypertension Abdominal distention R14.0 Chest pain R07.9 Chest pain type: unspecified
[2021-05-27 14:59] LABS: Alanine Aminotransferase 21 U/L (0-33); Albumin Level 3.9 g/dL (3.5-5.2); Alkaline Phosphatase 177 IU/L (35-105); Anion Gap 15.1 (5-19); Aspartate Amino Transferase 25 U/L (0-32); Blood Urea Nitrogen 24 mg/dL (8-23); Calcium 9.2 mg/dL (8.5-10.5); Carbon Dioxide 28 mmol/L (22-29); Chloride 75 mmol/L (98-107); Globulin 3.5 g/dL (1.3-4.6); Glucose 114 mg/dL (65-115); Osmolality Calculated 243 mOsm/kg (285-295); Potassium 4.1 mmol/L (3.5-5.1); Total Bilirubin 0.6 mg/dL (0.15-1.2); Total Protein 7.4 g/dL (6.6-8.7)
[2021-05-27] MEDS: warfarin 4 mg Tablet PO (15:05)
[2021-05-27 15:39] LABS: Sodium 114 mmol/L (136-145)
[2021-05-27] MEDS: sodium chloride 1 gm Tablet PO ×2 (16:53→20:13)
--- NOTE | 2021-05-27 17:00 | PC.NURSE ---
Pt sat up in chair assisted pt to sit in the chair to have her dinner. she denies any pain or discomfort during the activity. she stated her body pains are better. 1800-assisted pt to walk in room from her chair to bathroom. denies any increasing sob or pain. tolerated procedure well. had 1 loose BM.
[2021-05-27 18:29] LABS: Alanine Aminotransferase 21 U/L (0-33); Albumin Level 3.8 g/dL (3.5-5.2); Alkaline Phosphatase 154 IU/L (35-105); Anion Gap 15.9 (5-19); Aspartate Amino Transferase 25 U/L (0-32); Blood Urea Nitrogen 24 mg/dL (8-23); Calcium 8.8 mg/dL (8.5-10.5); Carbon Dioxide 28 mmol/L (22-29); Chloride 77 mmol/L (98-107); Globulin 3.1 g/dL (1.3-4.6); Glucose 126 mg/dL (65-115); Osmolality Calculated 250 mOsm/kg (285-295); Potassium 3.9 mmol/L (3.5-5.1); Total Bilirubin 0.6 mg/dL (0.15-1.2); Total Protein 6.9 g/dL (6.6-8.7)
[2021-05-27 18:56] LABS: Sodium 117 mmol/L (136-145)
--- NOTE | 2021-05-27 19:24 | PC.NURSE ---
to ct scan
[2021-05-27] MEDS: budesonide 0.5 mg/2 mL Neb INHALATION (19:25)
--- NOTE | 2021-05-27 20:12 | PC.NURSE ---
Shift Note Frequent safety and comfort rounds continue. Orders and/or nursing care completed as indicated. Patient monitored for response to intervention and treatment(s). Education provided includes fluid replacement, salt tablet intake for hyponatremia, holding her BP med coreg due to low BP and to notify nurse if she has chest discomfort or chest pain and muscle cramps. Patient and/or registration representative verbalizes understanding. Will continue to monitor.
--- NOTE | 2021-05-27 20:15 | PC.NURSE ---
Received report from BETO Kirkland. Patient resting in bed. Monsalve catheter in place draining clear yellow urine. NS at 75ml/hr as ordered. IV site free from infiltration at this time. Patient denies pain or other needs. Discussed plan for sodium tablets to replace her sodium levels. Patient verbalized complete understanding. No distress observed at this time.
[2021-05-28] VITALS (12 sets, daily range): BP systolic 94–117; BP diastolic 48–65; PULSE 67–93; RESP 18–26; TEMP 36.6–36.8; O2SAT 91–97
[2021-05-28] MEDS: ipratropium-albuterol 3 mL Neb INHALATION ×4 (00:08→20:40)
[2021-05-28] MEDS: sodium chloride 0.9% 1,000 ML 75 ML IV ×2 (00:15→14:06)
[2021-05-28 03:59] LABS: Basophils # 0.1 10^3/uL (0.0-0.1); Basophils % 0.4 %; Eosinophils # 0.1 10^3/uL (0.0-0.8); Hematocrit 44.7 % (37.0-47.0); Hemoglobin 15.1 g/dL (11.5-15.3); Lymphocytes # 0.9 10^3/uL (0.8-4.8); Lymphocytes % 6.9 %; Mean Corpuscular HGB Conc 33.8 g/dL (30.0-36.0); Mean Corpuscular Hemoglobin 28.7 pg (28.0-34.0); Mean Corpuscular Volume 84.8 fl (81-99); Mean Platelet Volume 10.6 fL (7.4-10.4); Monocytes # 1.4 10^3/uL (0.2-0.9); Monocytes % 9.9 %; Neutrophils # 11.11 10^3/uL (1.8-7.7); Neutrophils % 81.1 %; Nucleated Red Blood Cells % 0 %; Platelet Count 205 10^3/cmm (130-400); Red Blood Count 5.27 10^6/uL (4.1-5.3); Red Cell Distribution Width 13.9 % (12.1-15.1); White Blood Count 13.7 10^3/uL (4.0-10.0)
[2021-05-28 04:30] LABS: Estmated Average Glucose 128; Hemoglobin A1C 6.1 % (4.0-6.0)
[2021-05-28 04:38] LABS: Alanine Aminotransferase 22 U/L (0-33); Albumin Level 3.8 g/dL (3.5-5.2); Alkaline Phosphatase 161 IU/L (35-105); Anion Gap 16.9 (5-19); Aspartate Amino Transferase 28 U/L (0-32); Blood Urea Nitrogen 30 mg/dL (8-23); Calcium 8.6 mg/dL (8.5-10.5); Carbon Dioxide 26 mmol/L (22-29); Chloride 83 mmol/L (98-107); Globulin 3.2 g/dL (1.3-4.6); Glucose 86 mg/dL (65-115); Osmolality Calculated 259 mOsm/kg (285-295); Potassium 3.9 mmol/L (3.5-5.1); Sodium 122 mmol/L (136-145); Total Bilirubin 0.7 mg/dL (0.15-1.2)
[2021-05-28 04:40] LABS: Chol HDL Ratio 3.37 mg/dL (0.0-4.40); Cholesterol 138 mg/dL (0-200); HDL Cholesterol 41 mg/dL (60-100); LDL Cholesterol Calculated 70 mg/dL (50-129); Triglycerides 136 mg/dL (0-150); VLDL Cholestrol Calculation 27 mg/dL (0-30)
[2021-05-28] MEDS: pantoprazole DR 40 mg Tablet PO (09:13)
[2021-05-28] MEDS: sodium chloride 1 gm Tablet PO ×3 (09:13→20:56)
[2021-05-28] MEDS: atorvastatin 40 mg Tablet 80 MG PO (09:14)
[2021-05-28] MEDS: acetaminophen 325 mg Tablet 650 MG PO (09:31)
[2021-05-28 10:38] LABS: Anion Gap 13.7 (5-19); Blood Urea Nitrogen 31 mg/dL (8-23); Calcium 8.6 mg/dL (8.5-10.5); Carbon Dioxide 27 mmol/L (22-29); Chloride 82 mmol/L (98-107); Glucose 116 mg/dL (65-115); Osmolality Calculated 256 mOsm/kg (285-295); Potassium 3.7 mmol/L (3.5-5.1)
--- NOTE | 2021-05-28 10:39 | ECG_ITS ---
[facility] Test Date: 2021-05-29 Pat Name: Nimo Pressley Department: Room: 105 Gender: Female Retread Technician: : 1950 Requested By: Drew Richardson Order Number: [id number] Barbara MD: Yvonne Santamaria M.D. Interpretive Statements NAME OF STUDY: LEXISCAN SESTAMIBI STRESS TEST INDICATION: UNSTABLE ANGINA PROCEDURE: At the baseline, the blood pressure was 114/47 mmHg with a heart rate of 67 bpm. The electrocardiogram showed sinus rhythm with artifact. Nonspecific ST changes. The Lexiscan was infused over a period of 20 seconds. A total of 0.4 milligrams of Lexiscan was infused. The stress phase was continued for a total of 5 minutes. Heart rate at the end of the stress phase was 83 bpm with a blood pressure of 93/35 mmHg. The EKG at the peak infusion revealed sinus rhythm with no significant ST-T wave changes. The study was terminated due to protocol completion. Sestamibi was injected 20 seconds after the Lexiscan infusion. Blood pressure at the end of the recovery phase was 95/45 mmHg with a heart rate of 78 beats per minute. CONCLUSION: 1. No significant EKG changes with the LexiScan infusion 2. No LexiScan induced chest pain or cardiac arrhythmia. 3. Normal blood pressure and heart rate response. 4. Sestamibi/sestamibi perfusion scan pending; see separate report. Electronically Signed On 05-29-2021 12:02:48 CDT by Yvonne Santamaria M.D. [email or web address]
[2021-05-28 11:10] LABS: Sodium 119 mmol/L (136-145)
[2021-05-28] MEDS: metoprolol tartrate 50 mg Tablet PO ×2 (11:53→20:56)
[2021-05-28] MEDS: warfarin 4 mg Tablet PO (14:06)
--- NOTE | 2021-05-28 14:25 | P.PN_ITS ---
Subjective Subjective: Interval history: No acute events overnight. Patient states she is feeling a lot better. Sitting up in chair on examination today on 2 L oxygen supplementation saturating 92%. Denies any chest pain, nausea vomiting, dizziness. States she is feeling a lot more stronger today. Vitals/I&O/Wt Last Vital Signs Temp 97.9 F 05/28/21 11:37 Pulse 73 05/28/21 11:37 Resp 19 H 05/28/21 11:37 BP 96/54 05/28/21 11:37 Pulse Ox 91 05/28/21 11:37 05/27/21 05/28/21 05/28/21 22:59 06:59 14:59 Intake Total 238 / 598 1240 / 1838 1600 / 1600 Output Total 400 / 500 200 / 200 Balance 238 / 498 840 / 1338 1400 / 1400 Weight last 48 hrs Weight 95.663 kg Weight 95.254 kg Physical Exam Narrative: EXAM NARRATIVE: General: No acute distress, AO x3, HEENT: PERRLA, pupils bilaterally equal and reactive, pallors not present Chest: Bilateral bronchial breath sounds, occasional rhonchi over the lung long, equal good air entry bilaterally CVS: S1-S2 regular, no murmurs, no tachycardia, no gallops, no rubs Abdomen: Soft, nontender, no organomegaly, bowel sounds present Neuro: No focal deficits, no facial deformity, AO x3, power 5/5 in all limbs Urinary Catheter Management^: Monsalve: Cath Placed During This Visit: yes Reason for Continuing Indwelling Catheter: Accurate Measurement of Urinary Output in Critically Ill Patients Urinary Catheter Date of Insertion: 05/27/21 Urinary Catheter Time of Insertion: 14:00 Data : 05/28/21 03:44 05/28/21 10:00 Micro: Microbiology 05/27/21 06:05 Legionella Urinary Antigen - Final Unknown Source A&P Assessment and plan (1) Acute hyponatremia: Status: Acute (2) Uncontrolled hypertension: Status: Acute (3) SOB (shortness of breath): Status: Acute (4) COPD (chronic obstructive pulmonary disease): Status: Acute (5) Smoker: Status: Acute (6) Hypertension: Status: Acute Qualifiers: Hypertension type: essential hypertension Qualified Code(s): I10 - Essential (primary) hypertension (7) Abdominal distention: Status: Acute (8) Chest pain: Status: Acute Qualifiers: Chest pain type: unspecified Qualified Code(s): R07.9 - Chest pain, unspecified Additional A&P Information Patient presenting today with hypertensive urgency, jaw and left arm pain, found to have acute hyponatremia on labs along, CXR with left side pleural effusion. # Hypertensive urgency: Resolved. Blood pressures on the lower side. Goal blood pressure less than 140/90 mmHg. Stop carvedilol and lisinopril. Start patient on metoprolol 50 mg twice daily for neuropathy Blood pressure control. # Jaw pain, left arm pain: Most likely secondary to hypertensive urgency. Troponin delta negative. Low suspicion for ACS but cannot rule out demand ischemia. Lexiscan stress test tomorrow morning. N.p.o. after midnight A1c 6.1, lipid panel results appreciated. Continue with home dose of statins. Start on 81 mg aspirin. Acute hyponatremia: Most likely secondary to dehydration from diuretics but cannot rule out SIADH. Urine studies appreciated. Patient has been on diuretics as an outpatient with Lasix and metolazone. Which can cause of faulty urine studies. Low serum osmolality, urine sodium 69. Sodium improved from 115 -1 16 since admission. Patient euvolemic today. Stop IV fluids. Hold off on any diuretics. Fluid restriction up to 1500 cc. Check BMP every 6 hourly. Anasarca: Unknown cause. LFTs within normal limit. No history of liver disorder. proBNP normal. No history of CHF in the past. Has been on diuretics. Echocardiogram shows an EF of 55 to 60% with grade 1 diastolic dysfunction. Hypoxia: Most likely secondary to COPD. Doing better. proBNP within normal limits. Chronic smoker. Start patient on DuoNebs every 6 hour, budesonide twice daily. Patient would need pulmonary function test as an outpatient. Low suspicion of PE as patient is already on warfarin and is therapeutic. Lower limb edema: History of peripheral arterial disease: S/p left femoropopliteal bypass. On chronic anticoagulation with warfarin for same. Dopplers negative for DVT. Full code. Regular diet. Warfarin have a DVT prophylaxis. Protonix for PUD prophylaxis. Full code Attestations Medical Necessity Statement*: Requires further hospitalization for management of hyponatremia, hypertensive urgency resolving hypertensive urgency, rule out ACS Time Spent in Patient Care: Greater than 35 minutes (>than 50% of time spent in counselling and/or direct pt care on unit) . 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
[2021-05-28 15:47] LABS: Anion Gap 13.2 (5-19); Blood Urea Nitrogen 32 mg/dL (8-23); Calcium 8.2 mg/dL (8.5-10.5); Carbon Dioxide 27 mmol/L (22-29); Chloride 83 mmol/L (98-107); Glucose 100 mg/dL (65-115); Osmolality Calculated 255 mOsm/kg (285-295); Potassium 4.2 mmol/L (3.5-5.1)
[2021-05-28 16:09] LABS: Sodium 119 mmol/L (136-145)
[2021-05-28 18:44] LABS: Anion Gap 16.2 (5-19); Blood Urea Nitrogen 32 mg/dL (8-23); Calcium 8.8 mg/dL (8.5-10.5); Carbon Dioxide 24 mmol/L (22-29); Chloride 84 mmol/L (98-107); Glucose 126 mg/dL (65-115); Osmolality Calculated 258 mOsm/kg (285-295); Potassium 4.2 mmol/L (3.5-5.1); Sodium 120 mmol/L (136-145)
--- NOTE | 2021-05-28 20:38 | PC.NURSE ---
shift note pt is alert, orientedx4. denies any pain or discomfort or any muscle cramps. on 2 LPM nasal cannula. sp02 ranges between 90-95%. pt has been up and sitting in her chair during meals. Pt stated she wants to keep her odonnell catheter until tomorrow. Informed pt that doctor is okay to take it out if odonnell keeps bothering her. pt verbalizes understanding. Educated pt on her stress test tomorrow such as no caffeine prior to the test. pt verbalizes understanding.
[2021-05-28] MEDS: budesonide 0.5 mg/2 mL Neb INHALATION (20:40)
[2021-05-28 23:17] LABS: Anion Gap 13.7 (5-19); Blood Urea Nitrogen 30 mg/dL (8-23); Calcium 8.6 mg/dL (8.5-10.5); Carbon Dioxide 25 mmol/L (22-29); Chloride 87 mmol/L (98-107); Glucose 103 mg/dL (65-115); Osmolality Calculated 258 mOsm/kg (285-295); Potassium 4.7 mmol/L (3.5-5.1); Sodium 121 mmol/L (136-145)
[2021-05-29] VITALS (16 sets, daily range): BP systolic 101–151; BP diastolic 42–67; PULSE 62–86; RESP 17–30; TEMP 36.6–37.1; O2SAT 90–97
[2021-05-29] MEDS: ipratropium-albuterol 3 mL Neb INHALATION ×5 (00:03→23:03)
[2021-05-29 02:51] LABS: Basophils # 0.1 10^3/uL (0.0-0.1); Basophils % 0.5 %; Eosinophils # 0.2 10^3/uL (0.0-0.8); Eosinophils % 1.4 %; Hematocrit 40.8 % (37.0-47.0); Hemoglobin 13.9 g/dL (11.5-15.3); Lymphocytes # 0.9 10^3/uL (0.8-4.8); Lymphocytes % 8.4 %; Mean Corpuscular HGB Conc 34.1 g/dL (30.0-36.0); Mean Corpuscular Volume 85.2 fl (81-99); Mean Platelet Volume 11.2 fL (7.4-10.4); Monocytes % 9.7 %; Neutrophils # 8.23 10^3/uL (1.8-7.7); Neutrophils % 79.5 %; Nucleated Red Blood Cells % 0 %; Platelet Count 156 10^3/cmm (130-400); Red Blood Count 4.79 10^6/uL (4.1-5.3); Red Cell Distribution Width 14.1 % (12.1-15.1); White Blood Count 10.4 10^3/uL (4.0-10.0)
[2021-05-29 03:31] LABS: Alanine Aminotransferase 27 U/L (0-33); Albumin Level 3.3 g/dL (3.5-5.2); Alkaline Phosphatase 131 IU/L (35-105); Anion Gap 11.9 (5-19); Aspartate Amino Transferase 32 U/L (0-32); Blood Urea Nitrogen 30 mg/dL (8-23); Calcium 8.6 mg/dL (8.5-10.5); Carbon Dioxide 28 mmol/L (22-29); Chloride 86 mmol/L (98-107); Globulin 2.7 g/dL (1.3-4.6); Glucose 92 mg/dL (65-115); Osmolality Calculated 258 mOsm/kg (285-295); Potassium 4.9 mmol/L (3.5-5.1); Sodium 121 mmol/L (136-145); Total Bilirubin 0.4 mg/dL (0.15-1.2)
--- NOTE | 2021-05-29 07:00 | NMCV_ITS ---
NM alisia perf SPECT r/s* [id number] Nimo Pressley Age: 70 Gender: F : 1950 Exam Date: 05/29/2021 07:41 Ordering Phys: Drew Richardson MD Technologist: YADIRA Coon Exam Location: [facility] Indications: L ARM TINGLING HIGH BLOOD PRESSURE CHEST TIGHTNESS STRESS TEST [facility] IMAGE PROTOCOL Rest/Stress 1 Lexiscan Day Radiopharmaceutical Dose (mCi) Administration Site Administered by Rest: Tc-99m 10.9 IV YADIRA Lyons Sestamibi Stress:Tc-99m 32.4 IV YADIRA Coon Sestamimaria eugenia Rest: 29-May-2021 60 Discovery 630 Stress: 29-May-2021 30 Discovery 630 0.4mg Lexiscan. Supine position only as patient was unable to lay prone. SPECT RESULTS Technical Quality: Excellent Raw Data Analysis: Normal Image Corrections: No attenuation or motion correction applied Summed Stress Score: 0 Summed Rest Score: 0 Summed Difference Score: 0 PERFUSION FINDINGS SPECT images demonstrate homogeneous tracer distribution throughout the myocardium. FUNCTIONAL RESULTS (calculated via Gated SPECT) Stress Image LV EF (%): 83 Stress EDV (mL):59 TID: 1 Stress ESV (mL):10 FUNCTIONAL FINDINGS: The left ventricle is normal in size. Transient Ischemia Dilatation of 1. There is hyperdynamic left ventricular systolic function. The left ventricular ejection fraction is hyperdynamic with a value of 83% (likely overestimated due to small left ventricle cavity size). There is hyperdynamic left ventricular wall thickening. Normal end-diastolic end-systolic volumes. IMPRESSIONS 1. Myocardial perfusion imaging is normal. 2. Overall left ventricular systolic function is hyperdynamic without regional wall motion abnormalities. 3. The left ventricular ejection fraction is hyperdynamic with a value of 83%. 4. No significant EKG changes with Lexiscan infusion. 5. No prior similar studies to compare. Yvonne Santamaria MD (Electronically Signed) Final Date: 29 May 2021 12:11 S
[2021-05-29] MEDS: regadenoson 0.4 Mg/5 ml Syringe IVP (08:35)
[2021-05-29] MEDS: metoprolol tartrate 50 mg Tablet PO ×2 (08:58→19:38)
[2021-05-29] MEDS: atorvastatin 40 mg Tablet 80 MG PO (08:58)
[2021-05-29] MEDS: sodium chloride 1 gm Tablet PO ×3 (08:58→19:38)
[2021-05-29] MEDS: pantoprazole DR 40 mg Tablet PO (08:59)
[2021-05-29] MEDS: pneumococcal (23 valent) SDV 0.5 mL IM (10:03)
--- NOTE | 2021-05-29 12:31 | P.CONIM_ITS ---
Providers/Reason For Consult Consulting Physician/Specialty*: Dr. Santamaria, cardiology Reason for Consult*: Chest pain, coronary calcification noted on CT chest. Extensive PAD history Attending Physician: Harinder Nowak MD Primary Care Provider: Gurwinder Lomeli DO History of Present Illness History of Present Illness Nimo Pressley is a 70 year old female with PMHx of Hypertension, history of carotid stenosis s/p bilateral carotid endarterectomies [address] Marroquin, PAD s/p left femoral-popliteal bypass, chronic active smoker (2PPD). She has a history of left femoral stent placement which evidently became occluded and underwent femoral-popliteal bypass according to the patient. She is chronically anticoagulated for PAD. Patient underwent peripheral angiogram on 02/29/20 and was found to have chronically occluded proximal to distal SFA and external iliac vessel. Atherectomy was used for rotablation in external iliac and SFA. Lesions were then treated with balloon angioplasty and drug- coated balloon. She continues to smoke but is interested in smoking cessation. She has been struggling with left lower extremity edema for last 3 weeks. She underwent venous duplex that showed no DVT. Her dose of Lasix was increased and metolazone was added. She was also treated with antibiotics for cellulitis. She was admitted with weakness, tiredness, left shoulder and jaw pain. Her blood pressure in the ER was 213/106 mmHg. Review of Systems General: Reports: 10 or more systems reviewed and unremarkable except in HPI and below Const: Denies: fever(s), chills or body aches Eyes: Denies: change in vision, blurry vision or photophobia ENMT: Reports: hoarseness; Denies: throat pain, enlarged tonsils, odynophagia or nasal congestion Card: Denies: chest pain, palpitations, irregular heart rhythm, edema, swelling of feet/ankles, lightheadedness, pre-syncope, dyspnea on exertion or orthopnea Resp: Denies: dyspnea, productive cough, non-productive cough, wheezing, stridor, pain on inspiration, change in phlegm color, hemoptysis or chest congestion GI: Denies: abdominal pain, nausea, vomiting, hematemesis, coffee ground emesis, dysphagia, heartburn, diarrhea, constipation, GI cramping, change in st ool character, hematochezia or melena : Denies: flank pain, difficulty voiding, dysuria, urinary frequency, urinary urgency, urinary hesitancy or hematuria Musc: Denies: neck pain, back pain, extremity pain, joint swelling, joint warmth or deformity Neuro: Denies: headache(s), numbness in extremities, weakness in extremities, sensory changes, difficulty walking, frequent falls, dizziness, vertigo, behavioral changes, Slurred speech present or seizure-like activity Psych: Denies: anxiety, depression, suicidal ideation or homicidal ideation Endo: Denies: polyuria, polydipsia, tired all the time, cold intolerance or hot flashes Layo/Lymph: Denies: easy bruising or easy bleeding Meds/Allergies Home Medications and Allergies Home Medications Medication Instructions Recorded Confirmed Last Taken Type pantoprazole 40 mg tablet,delayed 40 mg PO DAILY #90 tab 07/29/20 05/27/21 05/26/21 08:00 Rx release atorvastatin 80 mg tablet See Rx Instructions .ROUTE 11/24/20 05/27/21 05/25/21 21:00 Rx .COMPLEX #90 tab warfarin 4 mg tablet 4 mg PO DIRECTED #90 tab 02/13/21 05/27/21 05/26/21 08:00 Rx albuterol sulfate 90 mcg/actuation 1 puff INHALATION QID PRN #8.5 g 04/26/21 05/27/21 Unknown Rx aerosol inhaler carvedilol 6.25 mg tablet 6.25 mg PO BID #60 tab 05/02/21 05/27/21 05/26/21 08:00 Rx furosemide 40 mg tablet 40 mg PO BID #60 tab 05/21/21 05/27/21 05/26/21 08:00 Rx metolazone 2.5 mg tablet 2.5 mg PO DAILY #30 tab 05/22/21 05/27/21 05/26/21 07:30 Rx potassium chloride 20 mEq 20 meq PO BID #60 tab 05/22/21 05/27/21 05/26/21 08:00 Rx tablet,extended release Allergies Allergy/AdvReac Type Severity Reaction Status Date / Time No Known Allergies Allergy Verified 05/18/21 08:44 Current Medications Current Medications Generic Name Dose Route Start Last Admin Trade Name Freq PRN Reason Stop Dose Admin Acetaminophen 650 mg 05/27/21 05:13 05/28/21 09:31 Acetaminophen 325 Mg Tablet PO 650 mg Q6H PRN Administration Mild/Mod Pain Or Temp >/= 101 Albuterol/Ipratropium 3 ml 05/27/21 12:00 05/29/21 12:04 Ipratropium-Albuterol 3 Ml Neb INHALATION 3 ml Q4H.RESPIRATORY ETHAN Administration Atorvastatin Calcium 80 mg 05/27/21 09:00 05/29/21 08:58 Atorvastatin 40 Mg Tablet PO 80 mg DAILY ETHAN Administration Budesonide 0.5 mg 05/27/21 09:50 05/29/21 07:38 Budesonide 0.5 Mg/2 Ml Neb INHALATION Not Given BID.RESPIRATORY ETHAN Metoprolol Tartrate 50 mg 05/28/21 10:40 05/29/21 08:58 Metoprolol Tartrate 50 Mg Tablet PO 50 mg BID@0900,2100 ETHAN Administration Pantoprazole Sodium 40 mg 05/27/21 09:00 05/29/21 08:[address] 40 Mg Tablet PO 40 mg DAILY ETHAN Administration Sodium Chloride 1 gm 05/27/21 15:50 05/29/21 08:58 Sodium Chloride 1 Gm Tablet PO 1 gm TID ETHAN Administration Warfarin Sodium 4 mg 05/27/21 14:00 05/28/21 14:06 Warfarin 4 Mg Tablet PO 4 mg DAILY@1400 ETHAN Administration PFSH Acute PFSH: Medical History Carotid artery stenosis Cellulitis Dyslipidemia Femoral artery occlusion Hypertension PAD (peripheral artery disease) Peripheral edema Smoker Venous stasis dermatitis of right lower extremity Surgical History S/P peripheral artery angioplasty with stent placement S/P vascular surgery Status post carotid surgery (~2012) bilateral Family History Other CAD (coronary artery disease) Social History Smoking and tobacco status: current every day smoker cigarettes Packs smoked per day: 1.5 Years cigarettes smoked: 25 Quit status (tobacco): considering quitting Second hand smoke exposure: Yes Alcohol intake: never Caregiver/support person: Yes Lives independently: Yes Household members: spouse Marital status: service: No Current occupational status: retired History of recent travel: No Current gender identity: Female Vitals/I&O/Wt Last Vital Signs Temp 98.6 F 05/29/21 08:00 Pulse 62 05/29/21 12:05 Resp 20 H 05/29/21 12:05 BP 106/42 05/29/21 08:32 Pulse Ox 94 05/29/21 12:05 05/28/21 05/29/21 05/29/21 22:59 06:59 14:59 Intake Total 500 / 2120 Output Total 450 / 650 1200 / 1850 Balance -450 / 970 -700 / 270 Physical Exam Narrative: EXAM NARRATIVE: GENERAL: Obese woman sitting in bed in no acute distress HEENT: Pupils equal round reactive to light. No pallor or icterus. NECK: No JVD, Bilateral carotid endarterectomy scars present CARDIOVASCULAR SYSTEM: S1-S2 regular. No murmur rubs or gallops. RESPIRATORY SYSTEM: Chest clear to auscultation. No wheezes rhonchi or rubs heard. No use of accessory muscles. ABDOMEN: Soft, nontender and nondistended. Normal bowel sounds present. EXTREMITIES: No cyanosis. Trace edema. No signs of chronic venous insufficiency. MARKETING OPERATIONS INTERN: Patient is alert oriented ?3. No focal neurological deficits. SKIN: Normal turgor and temperature. PSYCH: Normal insight and judgment. Urinary Catheter Management^: Omnsalve: Cath Placed During This Visit: yes Reason for Continuing Indwelling Catheter: Accurate Measurement of Urinary Output in Critically Ill Patients Urinary Catheter Date of Insertion: 05/27/21 Urinary Catheter Time of Insertion: 14:00 Data Other Data: Other data: 02/29/20 PERIPHERAL ANGIOGRAM Patient underwent peripheral angiogram through posterior tibial approach she was found to have chronically occluded proximal to distal SFA and external iliac vessel. After crossing vision retrogradely in the right SFA and iliac arteries wire was parked in the aorta. Lesions were then treated with balloon angioplasty and drug-coated balloon. Excellent angiographic result was achieved. Carotid duplex 17 November 2020 CONCLUSIONS Mild to moderate heterogeneous plaques at the bifurcations bilaterally with Doppler velocities consistent with less than 50% stenosis Mild diffuse plaques in the common carotid arteries bilaterally Technically difficult study because of the plaque shadowing and patient's abnormal breathing. Possibly no significant change compared to the study from 05/16/2020 05/02/21 Venous duplex FINDINGS: Normal 2-D Doppler and augmentation and compressibility throughout the lower extremity venous structures. Additional imaging through the proximal calf veins also reveals no thrombus. Limited evaluation of the greater saphenous vein is patent with no thrombus. CONCLUSIONS No DVT left lower extremity. Lexiscan sestamibi myocardial perfusion imaging 29 May 2021 IMPRESSIONS 1. Myocardial perfusion imaging is normal. 2. Overall left ventricular systolic function is hyperdynamic without regional wall motion abnormalities. 3. The left ventricular ejection fraction is hyperdynamic with a value of 83%. 4. No significant EKG changes with Lexiscan infusion. 5. No prior similar studies to compare. Transthoracic echocardiogram 27 May 2021 CONCLUSIONS LV systolic function is normal with EF of 55 to 60%. Grade 1 diastolic dysfunction. No significant valvular dysfunction seen. No comparison studies are noted. A&P Assessment and plan (1) Chest pain: No recurrent episodes. -Normal stress test with normal pumping function. Status: Acute Qualifiers: Chest pain type: unspecified Qualified Code(s): R07.9 - Chest pain, unspecified (2) Acute hyponatremia: Sodium level has improved to 121. Follow-up on BMP. -Received IV fluids. Status: Acute (3) PAD (peripheral artery disease): Continue warfarin. No symptoms of intermittent claudication. -Last intervention February 2020 Status: Acute (4) Smoker: Status: Acute (5) Hypertension: Blood pressure running soft. -Antihypertensives have been held. Status: Acute Qualifiers: Hypertension type: essential hypertension Qualified Code(s): I10 - E ssential (primary) hypertension (6) Dyslipidemia: Status: Acute (7) COPD (chronic obstructive pulmonary disease): Status: Acute Additional A&P Information I me to participate in patient's care. Please feel free to call with questions or concerns. Consult Attestations Time Spent in Patient Care: 16 - 35 minutes (>than 50% of time spent in counselling and/or direct pt care on unit) . Coding Level of Care Code Acute Clinic Supervisor for Zacg Fwd Diagnoses Chest pain R07.9 Chest pain type: unspecified Acute hyponatremia E87.1 PAD (peripheral artery disease) I73.9 Smoker F17.200 Hypertension I10 Hypertension type: essential hypertension Dyslipidemia E78.5 COPD (chronic obstructive pulmonary disease) J44.9
[2021-05-29 12:34] LABS: Anion Gap 13.3 (5-19); Blood Urea Nitrogen 25 mg/dL (8-23); Carbon Dioxide 27 mmol/L (22-29); Chloride 86 mmol/L (98-107); Glucose 94 mg/dL (65-115); Osmolality Calculated 256 mOsm/kg (285-295); Potassium 5.3 mmol/L (3.5-5.1); Sodium 121 mmol/L (136-145)
[2021-05-29] MEDS: warfarin 4 mg Tablet PO (13:59)
[2021-05-29 16:27] LABS: Osmolality Urine 234 mOsm/kg (50-1200)
--- NOTE | 2021-05-29 17:38 | PC.RESP ---
SMOKING CESSATION AND PULMONARY REHAB INFORMATION SENT TO PATIENT.
--- NOTE | 2021-05-29 18:30 | P.PN_ITS ---
Subjective Subjective: Interval history: Patient was seen and examined this morning, denies any chest pain shortness of breath, denies any muscle cramps, nausea, headache, abdominal pain, vomiting. Lower extremity edema is improving. Medications: Reviewed: Yes Vitals/I&O/Wt Last Vital Signs Temp 97.8 F 05/29/21 16:00 Pulse 78 05/29/21 16:29 Resp 20 H 05/29/21 16:23 BP 135/60 05/29/21 16:00 Pulse Ox 92 05/29/21 16:23 05/29/21 05/29/21 05/29/21 06:59 14:59 22:59 Intake Total 500 / 2120 Output Total 1200 / 1850 Balance -700 / 270 Physical Exam Const: COMMON NORMALS: patient oriented x3 HENMT: COMMON NORMALS: normocephalic and atraumatic HEAD & SCALP: normocephalic and atraumatic Chest: CHEST: Yes Symmetrical chest wall rise Resp: COMMON NORMALS: clear to auscultation bilaterally EFFORT & INSPECTION: Yes symmetric chest movement AUSCULTATION: clear to auscultation bilaterally Cardio: COMMON NORMALS: regular rate, regular rhythm, S1 normal heart sound present, S2 normal heart sound present, No gallops present (Cardio), No murmurs present (Cardio), No rub (Cardio) and Peripheral pulses 2+ throughout RATE: regular rate RHYTHM: regular rhythm HEART SOUNDS: S1 normal heart sound present and S2 normal heart sound present PERIPHERAL PULSES: Peripheral pulses 2+ throughout GI: COMMON NORMALS: Normal to inspection, nondistended, normoactive bowel sounds present, Soft to palpation, non-tender, No hepatosplenomegaly present and no masses AUSCULTATION: Yes normoactive bowel sounds PALPATION: Yes Soft to palpation and Yes No hepatosplenomegaly present RECTAL EXAM: deferred Extremity: NARRATIVE EXTREMITY EXAM: B/L L/E Edema 2+ Neuro: COMMON NORMALS: patient oriented x3 Urinary Catheter Management^: Monsalve: Cath Placed During This Visit: yes Reason for Continuing Indwelling Catheter: Accurate Measurement of Urinary Output in Critically Ill Patients Urinary Catheter Date of Insertion: 05/27/21 Urinary Catheter Time of Insertion: 14:00 Data : 05/29/21 02:25 05/29/21 11:26 A&P Assessment and plan (1) Acute hyponatremia: Status: Acute (2) Uncontrolled hypertension: Status: Acute (3) SOB (shortness of breath): Status: Acute (4) COPD (chronic obstructive pulmonary disease): Status: Acute (5) Smoker: Status: Acute (6) Hypertension: Status: Acute Qualifiers: Hypertension type: essential hypertension Qualified Code(s): I10 - Essential (primary) hypertension (7) Abdominal distention: Status: Acute (8) Chest pain: Status: Acute Qualifiers: Chest pain type: unspecified Qualified Code(s): R07.9 - Chest pain, unspecified Additional A&P Information Patient Presented with hypertensive urgency, jaw and left arm pain, found to have acute hyponatremia on labs along, CXR with left side pleural effusion. # Hypertensive urgency: Resolved. Blood pressures on the lower side. Hold Lisinopril Continue metoprolol 50 mg twice # Jaw pain, left arm pain: Of unclear etiology. Troponin delta negative. EKG is failed to show any acute ST-T wave changes. Lexiscan stress test: Normal Continue with home dose of statins. Continue aspirin 81 mg p.o. daily. Acute hyponatremia: Most likely secondary to dehydration from diuretics but cannot rule out underlying SIADH in the setting of underlying COPD . Urine studies appreciated. Patient has been on diuretics as an outpatient with Lasix and metolazone. Which can cause of faulty urine studies. Low serum osmolality, urine sodium 69. Salt Tablet 1 gm po TID Initially on I.V Fluids have been discontinued. Fluid restriction up to 1500 cc. Monitor BMP Anasarca: Unknown cause. LFTs within normal limit. No history of liver disorder. proBNP normal. No history of CHF in the past. Has been on diuretics. Echocardiogram shows an EF of 55 to 60% with grade 1 diastolic dysfunction. Hypoxia: Most likely secondary to COPD. Doing better. proBNP within normal limits. Chronic smoker. Start patient on DuoNebs every 6 hour, budesonide twice daily. Patient would need pulmonary function test as an outpatient. Low suspicion of PE as patient is already on warfarin and is therapeutic. Lower limb edema: History of peripheral arterial disease: S/p left femoropopliteal bypass. On chronic anticoagulation with warfarin for same. Dopplers negative for DVT. Full code. Regular diet. Warfarin have a DVT prophylaxis. Protonix for PUD prophylaxis. Full code Attestations Medical Necessity Statement*: Patient Needs to be in hospital for the man agement of severe Hyponatremia. Coding Level of Care Code Acute Network Desktop Support Specialist for g Fwd Exam Detailed Diagnoses Acute hyponatremia E87.1 Uncontrolled hypertension I10 SOB (shortness of breath) R06.02 COPD (chronic obstructive pulmonary disease) J44.9 Smoker F17.200 Hypertension I10 Hypertension type: essential hypertension Abdominal distention R14.0 Chest pain R07.9 Chest pain type: unspecified
[2021-05-29] MEDS: budesonide 0.5 mg/2 mL Neb INHALATION (19:26)
[2021-05-29] MEDS: ondansetron 2 mg/ML SDV 2 mL 4 MG IVP (22:14)
--- NOTE | 2021-05-29 22:18 | PC.NURSE ---
Patient c/o indigestion and nausea. Patient states, I feel like if I could burp real good, I'd feel better. PRN Zofran given.
[2021-05-30] VITALS (8 sets, daily range): BP systolic 122–136; BP diastolic 44–96; PULSE 67–79; RESP 17–25; TEMP 36.8; O2SAT 80–933
[2021-05-30] MEDS: acetaminophen 325 mg Tablet 650 MG PO (02:02)
--- NOTE | 2021-05-30 02:03 | PC.NURSE ---
Patient is asking for Tylenol. Patient states, those muscles all across my stomach are so sore. PRN Tylenol given.
--- NOTE | 2021-05-30 03:04 | PC.NURSE ---
Patient resting with eyes closed. Patient awoken to check vital signs. Patient states that she feels better.
[2021-05-30] MEDS: ipratropium-albuterol 3 mL Neb INHALATION ×2 (03:25→09:36)
[2021-05-30 04:59] LABS: Basophils # 0.1 10^3/uL (0.0-0.1); Basophils % 0.4 %; Eosinophils # 0.1 10^3/uL (0.0-0.8); Eosinophils % 0.9 %; Hematocrit 44.3 % (37.0-47.0); Hemoglobin 14.9 g/dL (11.5-15.3); Lymphocytes # 1.1 10^3/uL (0.8-4.8); Lymphocytes % 8.4 %; Mean Corpuscular HGB Conc 33.6 g/dL (30.0-36.0); Mean Corpuscular Hemoglobin 28.7 pg (28.0-34.0); Mean Corpuscular Volume 85.4 fl (81-99); Mean Platelet Volume 10.6 fL (7.4-10.4); Monocytes % 7.5 %; Neutrophils # 10.47 10^3/uL (1.8-7.7); Neutrophils % 81.9 %; Nucleated Red Blood Cells % 0 %; Platelet Count 177 10^3/cmm (130-400); Red Blood Count 5.19 10^6/uL (4.1-5.3); Red Cell Distribution Width 13.8 % (12.1-15.1); White Blood Count 12.8 10^3/uL (4.0-10.0)
[2021-05-30 05:26] LABS: Anion Gap 15.1 (5-19); Blood Urea Nitrogen 27 mg/dL (8-23); Calcium 8.8 mg/dL (8.5-10.5); Carbon Dioxide 29 mmol/L (22-29); Chloride 85 mmol/L (98-107); Glucose 93 mg/dL (65-115); Osmolality Calculated 263 mOsm/kg (285-295); Potassium 5.1 mmol/L (3.5-5.1); Sodium 124 mmol/L (136-145)
[2021-05-30] MEDS: sodium chloride 1 gm Tablet PO ×2 (08:49→13:51)
[2021-05-30] MEDS: metoprolol tartrate 50 mg Tablet PO (08:49)
[2021-05-30] MEDS: pantoprazole DR 40 mg Tablet PO (08:49)
[2021-05-30] MEDS: atorvastatin 40 mg Tablet 80 MG PO (08:50)
[2021-05-30] MEDS: budesonide 0.5 mg/2 mL Neb INHALATION (09:39)
--- NOTE | 2021-05-30 09:44 | PC.SOCIAL ---
IMM Update Pg. 2 of IMM updated and reviewed with patient, who verbalized understanding. Copy provided.
[2021-05-30] MEDS: warfarin 4 mg Tablet PO (13:51)
--- NOTE | 2021-05-30 15:46 | P.DS_ITS ---
Discharge Providers Date of Admission: 05/27/21 04:50 Date of Discharge: May 30, 2021 Attending Provider at Admission: Zeynep Chacon MD Attending Provider at Discharge: Harinder Nowak MD Primary Care Provider: Gurwinder Lomeli DO Diagnoses at Discharge Discharge Diagnosis (1) Chest pain: Status: Resolved Qualifiers: Chest pain type: unspecified Qualified Code(s): R07.9 - Chest pain, unspecified (2) Acute hyponatremia: Status: Acute (3) PAD (peripheral artery disease): Status: Acute (4) Smoker: Status: Acute (5) Hypertension: Status: Acute Qualifiers: Hypertension type: essential hypertension Qualified Code(s): I10 - Essential (primary) hypertension (6) Dyslipidemia: Status: Acute (7) COPD (chronic obstructive pulmonary disease): Status: Acute Reason for Visit Reason for Visit: L Arm Tingeling BLood Pressure High\Chest [facility] Hospital Course Hospital Course HPI 70 year old female with hypertension, history of carotid stenosis s/p bilateral carotid endarterectomies November 2012 , PAD s/p left femoral-popliteal bypass and stenting, currently on a/c with coumadin for PAD, chronic active smoker presented to the ER today after waking up with pressure like sensation in the jaw and left shoulder. Checked her BP at home which was >200mmHG systolic on repeated checks, so presented to ER for evaluation. Here noted to have 213/106, recived 20mg iv labetalol and 2 inch nitro paste following which BP was better controlled at 151/88mmg. EKG shows a sinus rhythm with no acute ST changes, baseline troponin 14, 2 hr at 12.86, negative delta at -1.86. ROS positive for recent increasing LE swelling and abdominal distension since mid April for which she was seen by her outpatient wound care coordinator, dose of lasix increased to 40mg po BID and metolazone added. Abdomen CT was ordered but has not yet been completed. Her PCP perfromed a LE duplex on 05/02 which was negative for DVT. Bactrim is noted on her home medication list, uncertain if currently taking it. Noted also to have new 02 requirement at 2lpm, per review of PCP notes, she was noted to have 02 sat of 88% on visits from april in office. She was admitted for the management of hypertensive urgency, acute hyponatremia, Jaw pain, left arm pain. During the hospital stay she underwent stress test for possible underlying coronary artery disease for possible atypical presentation ( jaw pain , left arm pain ), stress test was normal, no acute ST-T wave changes on EKG, troponin trend was without any significant delta, 2D echo: LV systolic function is normal with EF of 55 to 60%. Grade 1 diastolic dysfunction.No significant valvular dysfunction seen. Left jaw pain as well as left arm pain, could be possibly due to her acute hyponatremia, possibly due to recent diuretic use. For acute hyponatremia she was initially placed on IV hydration for dehydration secondary to diuretic use, underlying SIADH cannot be conclusively ruled out given her COPD history, later she was kept on salt tablets and fluid restriction, serum sodium was improving at the time of discharge she denied any symptoms pertaining to hyponatremia.Currently she has been kept off diuretics, she has been asked to take the Lasix as needed for shortness of breath, metolazone has been discontinued. For her chronic hypoxia likely secondary to COPD, she has qualified for 2 L of oxygen. She will continue to follow-up with her primary care physician as an outpatient for further work-up. Patient responded well to the above medical management and is being discharged in stable condition. She will follow up with her wound care coordinator as an outpatient in 1 week, with repeat BMP. Physical Exam Const: COMMON NORMALS: patient oriented x3 HENMT: COMMON NORMALS: normocephalic and atraumatic HEAD & SCALP: normocephalic and atraumatic Chest: CHEST: Yes Symmetrical chest wall rise Resp: COMMON NORMALS: clear to auscultation bilaterally EFFORT & INSPECTION: Yes symmetric chest movement AUSCULTATION: clear to auscultation bilaterally Cardio: COMMON NORMALS: regular rate, regular rhythm, S1 normal heart sound present, S2 normal heart sound present, No gallops present (Cardio), No murmurs present (Cardio), No rub (Cardio) and Peripheral pulses 2+ throughout RATE: regular rate RHYTHM: regular rhythm HEART SOUNDS: S1 normal heart sound present and S2 normal heart sound present PERIPHERAL PULSES: Peripheral pulses 2+ throughout GI: COMMON NORMALS: Normal to inspection, nondistended, normoactive bowel sounds present, Soft to palpation, non-tender, No hepatosplenomegaly present and no masses AUSCULTATION: Yes normoactive bowel sounds PALPATION: Yes Soft to palpation and Yes No hepatosplenomegaly present RECTAL EXAM: deferred Extremity: NARRATIVE EXTREMITY EXAM: B/L L/E Edema 2+ Neuro: COMMON NORMALS: patient oriented x3 Urinary Catheter Management^: Monsalve: Cath Placed During This Visit: yes, but has since been removed by the nurse Reason for Continuing Indwelling Catheter: Accurate Measurement of Urinary Output in Critically Ill Patients Urinary Catheter Date of Insertion: 05/27/21 Urinary Catheter Time of Insertion: 14:00 Date Urinary Catheter Removed: 05/29/21 Time Urinary Catheter Discontinued: 15:00 Discharge Data Data Completed and Pending: Completed Studies During Hospitalization Category Date Time Status CT chest abd pel wo con Routine Cat Scan 05/27/21 05:[address] head wo con* [id number] Routine Cat Scan 05/27/21 05:04 Completed Sestamibi Stress Test Request Routi ne Exams 05/28/21 10:39 Completed XR chest 1V petty ble [id number] Stat Exams 05/27/21 02:07 Completed NM alisia perf SPECT r/s* [id number] Routin e Nuc Med 05/29/21 07:00 Completed CV. echo complete * [id number] Routine Ultrasound 05/27/21 05:04 Completed Labs from last 24 hours 05/30/21 05/30/21 05/27/21 04:43 04:43 06:05 WBC 12.8 H RBC 5.19 Hgb 14.9 Hct 44.3 MCV 85.4 MCH 28.7 MCHC 33.6 RDW 13.8 Plt Count 177 MPV 10.6 H Neut % (Auto) 81.9 Lymph % (Auto) 8.4 Mcpherson % (Auto) 7.5 Eos % (Auto) 0.9 Baso % (Auto) 0.4 Neut # (Auto) 10.47 H Lymph # (Auto) 1.1 Mcpherson # (Auto) 1.0 H Eos # (Auto) 0.1 Baso # (Auto) 0.1 Nucleated RBC % (a uto) 0 Nucleated RBCs # 0.0 Sodium 124 L Potassium 5.1 Chloride 85 L Carbon Dioxide 29 Anion Gap 15.1 BUN 27 H Creatinine 0.8 GFR Calculation Not Reportable Glucose 93 Calculated Osmolal ity 263 L Calcium 8.8 Urine Osmolality 234 Vitals: Last Vital Signs Temp 98.2 F 05/30/21 08:58 Pulse 79 05/30/21 09:42 Resp 18 05/30/21 14:07 BP 136/96 05/30/21 14:07 Pulse Ox 95 05/30/21 14:07 Discharge Plan Discharge Patient Disposition: Home Condition: Stable Prescriptions: New Lasix 20 mg tablet 20 mg PO DAILY PRN (Reason: SOB,Edema) Qty: 30 RF: 0 Continued Protonix 40 mg tablet,delayed release (DR/EC) 40 mg PO DAILY Qty: 90 RF: 1 carvedilol 6.25 mg tablet 6.25 mg PO BID Qty: 60 RF: 3 albuterol sulfate 90 mcg/actuation HFA aerosol inhaler 1 puff inhalation QID PRN (Reason: shortness of breath or wheezing) Qty: 8.5 RF: 6 atorvastatin 80 mg tablet See Rx Instructions .ROUTE .COMPLEX Qty: 90 RF: 3 warfarin 4 mg tablet 4 mg PO DIRECTED Qty: 90 RF: 2 Discontinued furosemide 40 mg tablet 40 mg PO BID Qty: 60 RF: 3 metolazone 2.5 mg tablet 2.5 mg PO DAILY Qty: 30 RF: 0 potassium chloride 20 mEq tablet extended release 20 meq PO BID Qty: 60 RF: 3 Discharge Orders: Discharge Order (Routine); Ordered 05/30/21 Ordered By: Harinder Nowak Other Ambulatory Orders: Basic Metabolic Panel (Routine) Timeframe: 1 Week Facility: [facility] - Location: Lab - Main Lab Ordered By: Harinder Nowak DME: Oxygen (Order) Location: None Selected Ordered By: Harinder Nowak Referrals: Gurwinder Lomeli DO [Primary Care Provider] - (Please follow-up with Dr. Lomeli on at 9:20P.M. If you have any questions or need to reschedule. Please call ) Yvonne Santamaria MD [Physician] - 1 week (Please follow-up with Dr. Santamaria on AT 2:00p.m. If you have any questions or need to reschedule. Please call ) Discharge Diet: Regular Discharge Activity: Resume usual activity Patient Instructions: Furosemide (By mouth) (Lasix), Hypertension (DC), COPD Stoplight, Chest Pain Stoplight, Opioid Safety Discharge Attestations Time Spent in Discharge Care*: less than 30 min Specific Discharge Activities: educating patient, educating and/or supporting family/caregiver, discussing with pcp/other providers, discussing with immigration case manager/social workers/dc planners, documenting/other paperwork and evaluating patient/reviewing data Status at Discharge: Cognitive status at discharge: cognitively intact , Behavioral status at discharge: cooperative , Functional status at discharge: independent ambulation Overall status at discharge: patient is back to baseline Quality Metrics Clinical Quality Measures During this hospital stay, did patient experience: None Coding Level of Care Code Acute Chg DC note Diagnoses Chest pain R07.9 Chest pain type: unspecified Acute hyponatremia E87.1 PAD (peripheral artery disease) I73.9 Smoker F17.200 Hypertension I10 Hypertension type: essential hypertension Dyslipidemia E78.5 COPD (chronic obstructive pulmonary disease) J44.9
--- NOTE | 2021-05-30 15:50 | PC.NURSE ---
pt education provided, no questions or concerns. Pt oxygen delivered via HOME. Pt taken to vehicle via w/c
--- NOTE | 2021-06-01 08:43 | PC.SOCIAL ---
discharge follow up call made, spoke with patient. reviewed all medications with patient, she is aware of new instructions for lasix, discontinued medications and continued home medications. patient denies pain. patient is using o2 at 2L continuous. patient is aware of follow up appointment dates and times. patient instructed she needed lab work redrawn on 06-06, she will either have this done at her pcp or come to [facility] for labs. patient denies questions or concerns.
== END 2021-05-30 15:51 | disposition home or self-care (01) | DRG 305 ==
LOC: ER 04:30 → CSU 04:51
PROVIDERS: Student in an Organized Health Care Education/Training Program; Admitting Provider Student in an Organized Health Care Education/Training Program; Emergency Provider Emergency Medicine; PCP Family Medicine; Visit Provider Internal Medicine
DX: I16.0 Hypertensive urgency (principal); E22.2 Syndrome of inappropriate secretion of antidiuretic hormone; I73.9 Peripheral vascular disease, unspecified; Z95.820 Peripheral vascular angioplasty status with implants and grafts; Z98.890 Other specified postprocedural states; E78.5 Hyperlipidemia, unspecified; I10 Essential (primary) hypertension; F17.210 Nicotine dependence, cigarettes, uncomplicated; J44.9 Chronic obstructive pulmonary disease, unspecified; E86.0 Dehydration; R09.02 Hypoxemia
CPT/HCPCS: 36415; 36600; 51702; 70450; 71045; 71250; 74176; 78452; 80048; 80053; 80061; 81003; 82436; 82533; 82803; 83036; 83540; 83550; 83880; 83935; 84133; 84300; 84443; 84484; 85025; 85610; 85730; 87449; 90471; 90732; 93005; 93017; 93306; 94640; 96374; 96375; 99285; A9500; J1940; J2405; J2785; J3490; J7030; J7626

== ENCOUNTER → 2021-06-06 09:33 | Outpatient (BNVA) | payer MEDICARE, OTHER, SELFPAY | PROVIDERS: PCP Family Medicine; Visit Provider Internal Medicine Cardiovascular Disease | DX: I73.9 Peripheral vascular disease, unspecified (principal); R60.9 Edema, unspecified; Z79.01 Long term (current) use of anticoagulants; I10 Essential (primary) hypertension | CPT/HCPCS: 80048; 83735; 83880; 85610 ==

== ENCOUNTER → 2021-06-13 08:46 | Outpatient (BNVA) | payer MEDICARE, OTHER, SELFPAY | PROVIDERS: PCP Family Medicine; Visit Provider Internal Medicine Cardiovascular Disease | DX: I70.209 Unspecified atherosclerosis of native arteries of extremities, unspecified extremity (principal); Z79.01 Long term (current) use of anticoagulants; E87.1 Hypo-osmolality and hyponatremia; I10 Essential (primary) hypertension; Z98.890 Other specified postprocedural states | CPT/HCPCS: 80048; 83735; 83880; 85610 ==

== ENCOUNTER → 2021-06-20 09:07 | Outpatient (BNVA) | payer MEDICARE, OTHER, SELFPAY | PROVIDERS: PCP Family Medicine; Visit Provider Internal Medicine Cardiovascular Disease | DX: I70.209 Unspecified atherosclerosis of native arteries of extremities, unspecified extremity (principal); Z79.01 Long term (current) use of anticoagulants; R60.9 Edema, unspecified; I10 Essential (primary) hypertension; R06.02 Shortness of breath | CPT/HCPCS: 80048; 83735; 83880; 85610 ==

== ENCOUNTER 2021-06-26 12:42 | Outpatient (CLI) | payer MEDICARE, OTHER, SELFPAY ==
--- NOTE | 2021-06-26 14:00 | CT_ITS ---
WS: [id number] CT ABDOMEN PELVIS TECHNIQUE: Contrast-enhanced CT of the abdomen and pelvis with coronal and sagittal reformatted image s. CLINICAL INFORMATION: R19.09 - Other intra-abdominal and pelvic swelling, mass ... COMPARISON: May 27, 2021 DLP: 1096.[address] scans at [facility] use at least one of these dose optimization techniques: automated e xposure control; mA and/or kV adjustment per patient size (includes targeted exams where dose is matc hed to clinical indication); or iterative reconstruction. FINDINGS: Hepatomegaly. Diffuse fatty infiltration liver. Normal spleen. Normal GE junction. Fatty atrophy of t he pancreas. Lung bases are well aerated. Tiny gallstones or sludge in the gallbladder. Gallbladder i s otherwise normal in appearance. Small right adrenal adenoma measuring 10 mm. Left adrenal gland is normal. Normal bilateral renal parenchymal enhancement. Small bilateral renal cysts. Stable cortical cysts left kidney measuring 2.9 CM. Aortic calcification. Normal caliber abdominal aorta. Normal sigmoid colon. No evidence of small or large bowel obstruction. No ascites. Small fat-containi ng umbilical hernia is stable. No abdominal or pelvic lymphadenopathy. Enlarged left inguinal lymph n ode measuring 2.0 x 1.2 CM. Slight anterolisthesis L4 on L5. CT/CT abdomen pelvis w con* [id number] IMPRESSION: 1. Mild diffuse infiltration the liver. Mild hepatomegaly. 2. Small fat-containing umbilical hernia. 3. No ascites in the abdomen or pelvis. 4. Enhancing left inguinal lymph node appears new from previous measuring 2.0 x 1.2 CM. This is nonspecific but may be reactive. Recommend clinical correlati on. This could be followed up with ultrasound.
[2021-06-26] MEDS: iohexol 300 mg/mL 100 mL Btl IV (14:54)
[2021-06-26] MEDS: iohexol 300 mg/mL 50 mL Btl PO (14:54)
== END 2021-06-26 12:43 | disposition home or self-care (01) ==
PROVIDERS: PCP Family Medicine; Visit Provider Internal Medicine Cardiovascular Disease
DX: R19.09 Other intra-abdominal and pelvic swelling, mass and lump (principal); I70.209 Unspecified atherosclerosis of native arteries of extremities, unspecified extremity; R60.9 Edema, unspecified; K76.89 Other specified diseases of liver; R16.0 Hepatomegaly, not elsewhere classified; K42.9 Umbilical hernia without obstruction or gangrene
CPT/HCPCS: 74177; Q9967

== ENCOUNTER → 2021-06-27 08:32 | Outpatient (BNVA) | payer MEDICARE, OTHER, SELFPAY | PROVIDERS: PCP Family Medicine; Visit Provider Internal Medicine Cardiovascular Disease | DX: I70.209 Unspecified atherosclerosis of native arteries of extremities, unspecified extremity (principal); Z79.01 Long term (current) use of anticoagulants | CPT/HCPCS: 85610 ==

== ENCOUNTER → 2021-07-04 08:47 | Outpatient (BNVA) | payer MEDICARE, OTHER, SELFPAY | PROVIDERS: PCP Family Medicine; Visit Provider Internal Medicine Cardiovascular Disease | DX: I70.209 Unspecified atherosclerosis of native arteries of extremities, unspecified extremity (principal); Z79.01 Long term (current) use of anticoagulants | CPT/HCPCS: 85610 ==

== ENCOUNTER 2021-07-10 09:47 | Outpatient (CLI) | payer MEDICARE, OTHER, SELFPAY ==
--- NOTE | 2021-07-10 10:15 | USCV_ITS ---
Nimo Pressley Age: 70 Gender: F : 1950 Exam Date: 07/10/2021 10:02 Ordering Phys: Lance Plascencia MD ([email or web address] [place] Technologist: REECE [place] [facility] [place] Indication: OCCLUSION AND STENOSIS OF BILATERAL CAROTID ARTERIES Risk Factors: Previous Vascular Surgery: Right Brachial BP: / Left Brachial BP: / Right Left Velocity (cm/s) Spectral Plaque Velocity (cm/s) Spectral Plaque Syst/Diast Broadening Syst/Diast Broadening 174.00/7.80 Prox CCA 92.30 / 14.20 131.20/13.20 Mid CCA 65.30 / 9.20 92.60/ 8.80 Distal CCA 81.60 / 9.20 57.30/ 14.50 Prox ICA 72.00 / 14.10 55.40/ 13.50 Mid ICA 112.50/ 17.60 67.40/ 14.20 Distal ICA 97.00 / 25.40 160.80 ECA 100.80 0.51 ICA/CCA 1.72 Antegrade Vertebral Antegrade 20.90/ 5.80 cm/s 63.90/ 12.10 cm/s Bi Subclavian Bi 101.6 134.7 0 0 FINDINGS Comparison:. 11/17/20 Diffuse bilateral scattered calcified plaque and intimal thickening throughout the common carotid arteries and extending through the bifurcation. Tortuous , mobile carotid arteries. Mild elevation of left ICA velocity. No change since the prior study. Antegrade vertebral arteries. CONCLUSIONS Bilateral ICA stenosis less than 50%. Diffuse mild atherosclerosis. Dr. Lina Azul DO (Electronically Signed) Final Date: 10 July 2021 14:07 S
== END 2021-07-10 09:48 | disposition home or self-care (01) ==
LOC: RAD 09:51
PROVIDERS: PCP Family Medicine; Visit Provider Thoracic Surgery (Cardiothoracic Vascular Surgery)
DX: I65.23 Occlusion and stenosis of bilateral carotid arteries (principal)
CPT/HCPCS: 93880

== ENCOUNTER → 2021-07-11 09:02 | Outpatient (BNVA) | payer MEDICARE, OTHER, SELFPAY | PROVIDERS: PCP Family Medicine; Visit Provider Internal Medicine Cardiovascular Disease | DX: I70.209 Unspecified atherosclerosis of native arteries of extremities, unspecified extremity (principal); Z79.01 Long term (current) use of anticoagulants | CPT/HCPCS: 85610 ==

== ENCOUNTER 2021-07-17 15:59 | Outpatient (CLI) | payer MEDICARE, OTHER, SELFPAY ==
--- NOTE | 2021-07-17 16:14 | XRR_ITS ---
PROCEDURE INFORMATION: Exam: XR Chest Exam date and time: 07/17/2021 4:14 PM Age: 70 years old Clinical indication: Cardiovascular condition or disease; Congestive heart failure (chf); Other: Unspecified; Additional info: I50.9 - heart failure, unspecified TECHNIQUE: Imaging protocol: XR of the chest. Views: 2 views. COMPARISON: CT chest abd pel wo con 05/27/2021 2:05 PM FINDINGS: Lungs: Unremarkable. No consolidation. Pleural spaces: Unremarkable. No pleural effusion. No pneumothorax. Heart/Mediastinum: Cardiomegaly. Bones/joints: Unremarkable. XR/XR chest 2V* [id number] IMPRESSION: Cardiomegaly, negative for infiltrate Radiation Dose CTDIVOL = (mGy): DLP = (mGy-cm)
== END 2021-07-17 16:00 | disposition home or self-care (01) ==
LOC: RAD 16:04
PROVIDERS: PCP Family Medicine; Visit Provider Internal Medicine Cardiovascular Disease
DX: I50.9 Heart failure, unspecified (principal); I51.7 Cardiomegaly
CPT/HCPCS: 71046

== ENCOUNTER → 2021-07-21 11:59 | Outpatient (BNVA) | payer MEDICARE, OTHER, SELFPAY | PROVIDERS: PCP Family Medicine; Visit Provider Nurse Practitioner Family | DX: I10 Essential (primary) hypertension (principal); I50.9 Heart failure, unspecified; R06.02 Shortness of breath; R60.9 Edema, unspecified; J44.9 Chronic obstructive pulmonary disease, unspecified; J40 Bronchitis, not specified as acute or chronic; R05.9 Cough, unspecified | CPT/HCPCS: 80053; 83880 ==

== ENCOUNTER → 2021-07-25 09:08 | Outpatient (BNVA) | payer MEDICARE, OTHER, SELFPAY | PROVIDERS: PCP Family Medicine; Visit Provider Internal Medicine Cardiovascular Disease | DX: I50.9 Heart failure, unspecified (principal); I70.209 Unspecified atherosclerosis of native arteries of extremities, unspecified extremity; R06.02 Shortness of breath; Z79.01 Long term (current) use of anticoagulants | CPT/HCPCS: 80048; 83735; 83880; 85610 ==

== ENCOUNTER → 2021-08-22 08:27 | Outpatient (BNVA) | payer MEDICARE, OTHER, SELFPAY | PROVIDERS: PCP Family Medicine; Visit Provider Internal Medicine Cardiovascular Disease | DX: I70.209 Unspecified atherosclerosis of native arteries of extremities, unspecified extremity (principal) | CPT/HCPCS: 85610 ==

== ENCOUNTER → 2021-08-30 11:31 | Outpatient (BNVA) | payer MEDICARE, OTHER, SELFPAY | PROVIDERS: PCP Family Medicine; Visit Provider Internal Medicine Cardiovascular Disease | DX: I70.209 Unspecified atherosclerosis of native arteries of extremities, unspecified extremity (principal) | CPT/HCPCS: 85610 ==

== ENCOUNTER 2021-09-10 10:28 | Emergency (ER) | payer MEDICARE, OTHER, SELFPAY ==
--- NOTE | 2021-09-10 11:13 | XRR_ITS ---
PROCEDURE INFORMATION: Exam: XR Chest Exam date and time: 09/10/2021 11:13 AM Age: 71 years old Clinical indication: Other: Volume overload TECHNIQUE: Imaging protocol: XR of the chest. Views: 1 view. COMPARISON: CR XR chest 2V* [id number] 07/17/2021 4:18 PM FINDINGS: Lungs: COPD and interstitial prominence. Stable poorly defined bibasilar density, believed to on the basis epicardial fat. Correlation with the PA and lateral views can be performed for confirmation, as clinically indicated. Heart/Mediastinum: No cardiomegaly. Bones/joints: Osteopenia and degenerative change. XR/XR chest 1V portable [id number] IMPRESSION: 1. COPD and interstitial prominence. 2. Stable poorly defined bibasilar density, believed to on the basis of epicardial fat.
[2021-09-10 11:22] VITALS: BP 192/79; PULSE 97; RESP 22; TEMP 36.7; O2SAT 89; BMI 36.7
--- NOTE | 2021-09-10 12:05 | ED_ITS ---
HPI - Extremity Problem General: Chief complaint: Extremity Problem,Nontraumatic Stated complaint: bilateral leg swelling Time Seen by Provider: 09/10/21 11:48 History of Present Illness: HPI Narrative: Ms. Pressley is a 71-year-old lady with complex past medical history including CHF, COPD with chronic hypoxic respiratory failure, arterial disease who present s to the emergency department due to leg swelling and discomfort. She endorses progressive onset worsening leg swelling over the course of the week. Mild associated fullness and aching. History of similar. Has been compliant with her diuretic regimen however continues to worsen. Left is more swollen than right however this has been longstanding issue for her. Some discomfort with ambulation though no sensory changes appreciated. Mild increased shortness of breath and episodes of tingling in the left arm. No no infectious symptoms. No other specific changes in health. Course has been worsening. Intensity is moderate. No other exacerbating relieving factors identified. Complaint: extremity swelling Onset (ago): day(s) Pain Consistency: constant Location: left and right Quality: aching Radiation: none Relieving factors: nothing Exacerbating factors: nothing Associated symptoms: Reports short of breath and other Context: history of peripheral vascular disease and other Review of Systems General: Reports: 10 or more systems reviewed and unremarkable except in HPI and below PFSH ED PFSH: Medical History Abdominal distention Acute hyponatremia Carotid artery stenosis Carotid disease, bilateral Cellulitis Chest pain COPD (chronic obstructive pulmonary disease) Dyslipidemia Femoral artery occlusion Hypertension PAD (peripheral artery disease) Peripheral edema Respiratory failure Smoker SOB (shortness of breath) Uncontrolled hypertension Venous stasis dermatitis of right lower extremity Surgical History S/P peripheral artery angioplasty with stent placement S/P vascular surgery Status post carotid surgery (~2012) bilateral Family History Other CAD (coronary artery disease) Social History Quit status (tobacco): considering quitting Second hand smoke exposure: Yes Alcohol intake: never Caregiver/support person: Yes Lives independently: Yes Household members: spouse Marital status: service: No Current occupational status: retired History of recent travel: No Current gender identity: Female Physical Exam Const: COMMON NORMALS: alert GENERAL APPEARANCE: cooperative and well developed HENMT: COMMON NORMALS: normocephalic and atraumatic HEAD & SCALP: normocephalic and atraumatic THROAT: posterior oropharynx normal Eye: COMMON NORMALS: conjunctivae normal CONJUNCTIVA: Yes conjunctivae normal SCLERA: sclerae normal Neck/C-Spine: COMMON NORMALS: supple GENERAL: Yes trachea midline Resp: COMMON NORMALS: normal respiratory effort EFFORT & INSPECTION: Yes able to speak in complete sentences AUSCULTATION: crackles Laterality: bilateral and diminished lung sounds bilateral in the lower lung long Cardio: COMMON NORMALS: regular rate and regular rhythm RATE: regular rate RHYTHM: regular rhythm OTHER: bilateral lower extremity edema with overlying skin changes, asymmetric on exam GI: COMMON NORMALS: Soft to palpation PALPATION: Yes Soft to palpation and No Tenderness to palpation present (GI) PERCUSSION: normal to percussion Extremity: GENERAL: Yes normal exam except as noted and No edema Neuro: COMMON NORMALS: moves all extremities SENSORIUM/ORIENTATION: Yes alert and No Orientation impaired Psych: COMMON NORMALS: mental status grossly normal and Normal thought process present THOUGHT PROCESS: Normal thought process present Course ED course: - Patient was seen and evaluated by me at bedside - Patient placed on cardiac monitors, IV access obtained - Initial evaluation notable for exam as above - Labs notable for minimal leukocytosis. INR 2.26. Metabolic panel similar to prior with chronic hyponatremia. Renal function is preserved. BNP only mildly elevated. Delta troponin negative. - Imaging notable for interstitial prominence and COPD on chest x-ray. No evidence of DVT on ultrasound study. - Upon serial reexamination after treatment the patient was mildly improved. - Discussed with cardiology. The patient does not have a new oxygen requirement. Renal function is intact. Myocardial perfusion study performed in May 2021. We will plan to increase patient's Lasix at home with strict return precautions and close cardiology follow-up in the outpatient setting - Based on patient history, evaluation, labs, and imaging as interpreted the most likely cause of the patient's condition is heart failure exacerbation - The results of ED evaluation were discussed with the patient including prescriptions and/or symptomatic cares (if applicable) including appropriate and responsible use, followup plan, and return precautions. The patient verbalized understanding and felt safe for discharge. - Patient discharged in satisfactory condition. Note: Click bubbles or prepopulated long in note writing are used for assistance with data collection and billing and are inherently more limited than narrative and other text portions of this note. Please use narrative for additional clinical history and defer to narrative/free test for any case of contradictory information. If information appears in only free text or click bubble it should be considered present or absent as reported. Please contact note remote mortgage underwriter f or clarifications of clinical information or contradictory information. MDM is a brief summary, contradictory or erroneous seeming information should be clarified and full note should be reviewed. Vital Signs: Vital signs: Vital Signs Temperature 98.1 F 09/10/21 11:22 Pulse Rate 86 09/10/21 16:00 Respiratory Rate 18 09/10/21 16:00 Blood Pressure 152/85 09/10/21 16:00 Pulse Oximetry 99 09/10/21 16:00 MDM - Extremity (Nontraumatic) MDM Narrative Medical decision making narrative: 71-year-old lady with history of heart failure presented with worsening lower extremity edema. No evidence of pulmonary edema on x-ray. No evidence of DVT despite asymmetric lower extremities. Discussed with cardiology. Plan to increase patient's Lasix and potassium supplementation and have close outpatient follow-up. Medical Records Attestation: I reviewed the patient's medical records. Lab Data Attestation: I reviewed the patient's lab results. Result diagrams: 09/10/21 12:36 09/10/21 12:36 Labs: Lab Results 09/10/21 09/10/21 09/10/21 12:36 12:36 12:36 WBC 11.2 10^3/uL H 10^3/uL (4.0-10.0) RBC 4.27 10^6/uL 10^6/uL (4.1-5.3) Hgb 12.5 g/dL g/dL (11.5-15.3) Hct 38.7 % % (37.0-47.0) MCV 90.6 fl fl (81-99) MCH 29.3 pg pg (28.0-34.0) MCHC 32.3 g/dL g/dL (30.0-36.0) RDW 14.1 % % (12.1-15.1) Plt Count 205 10^3/cmm 10^3/cmm (130-400) MPV 10.2 fL fL (7.4-10.4) Neut % (Auto) 82.7 % % Lymph % (Auto) 8.1 % % Ocean % (Auto) 7.4 % % Eos % (Auto) 0.7 % % Baso % (Auto) 0.7 % % Neut # (Auto) 9.22 10^3/uL H 10^3/uL (1.8-7.7) Lymph # (Auto) 0.9 10^3/uL 10^3/uL (0.8-4.8) Ocean # (Auto) 0.8 10^3/uL 10^3/uL (0.2-0.9) Eos # (Auto) 0.1 10^3/uL 10^3/uL (0.0-0.8) Baso # (Auto) 0.1 10^3/uL 10^3/uL (0.0-0.1) Nucleated RBC % (auto) 0 % % Nucleated RBCs # 0.0 /100WBC /100WBC PT INR Sodium 132 mmol/L L mmol/L (136-145) Potassium 4.1 mmol/L mmol/L (3.5-5.1) Chloride 94 mmol/L L mmol/L (98-107) Carbon Dioxide 24 mmol/L mmol/L (22-29) Anion Gap 18.1 (5-19) BUN 10 mg/dL mg/dL (8-23) Creatinine 0.5 mg/dL mg/dL (0.5-0.9) GFR Calculation Not Reportable Glucose 96 mg/dL mg/dL (65-115) Calculated Osmolality 273 mOsm/kg L mOsm/kg (285-295) Calcium 9.3 mg/dL mg/dL (8.5-10.5) Total Bilirubin 0.8 mg/dL mg/dL (0.15-1.2) AST 18 U/L U/L (0-32) ALT 16 U/L U/L (0-33) Alkaline Phosphatase 194 IU/L H IU/L (35-105) Troponin T Baseline 11 ng/L H ng/L (0-10) Troponin T 120 Minute Delta Troponin T NT-Pro-B Natriuret Pep 319 pg/mL H pg/mL (0-125) Total Protein 6.6 g/dL g/dL (6.6-8.7) Albumin 3.8 g/dL g/dL (3.5-5.2) Globulin 2.8 g/dL g/dL (1.3-4.6) 09/10/21 09/10/21 12:36 14:40 WBC RBC Hgb Hct MCV MCH MCHC RDW Plt Count MPV Neut % (Auto) Lymph % (Auto) Ocean % (Auto) Eos % (Auto) Baso % (Auto) Neut # (Auto) Lymph # (Auto) Ocean # (Auto) Eos # (Auto) Baso # (Auto) Nucleated RBC % (auto) Nucleated RBCs # PT 25.40 SECONDS H SECONDS (12.1-14.9) INR 2.26 H (0.8-1.2) Sodium Potassium Chloride Carbon Dioxide Anion Gap BUN Creatinine GFR Calculation Glucose Calculated Osmolality Calcium Total Bilirubin AST ALT Alkaline Phosphatase Troponin T Baseline Troponin T 120 Minute 11.30 ng/L H ng/L (0-10) Delta Troponin T 0.30 ABS# ABS# (0-10) NT-Pro-B Natriuret Pep Total Protein Albumin Globulin EKG Data^ EKG 1: Interpretation: Twelve-lead EKG shows an irregular rhythm at a rate of 86 No FL interval, QRS duration 91, QTc 398. Normal axis. Interpretation: Atrial fibrillation with normal heart rate. Discharge Plan Discharge Patient Disposition: Home Clinical Impression: Peripheral edema, CHF (congestive heart failure), NYHA class III Condition: Stable Prescriptions: New Lasix 20 mg tablet 40 mg PO BID Qty: 60 1RF potassium chloride 20 mEq tablet extended release 20 meq PO BID Qty: 60 1RF Discontinued potassium chloride [Klor-Con M20] 20 mEq tablet,ER particles/crystals 20 meq PO DAILY 0RF Lasix 20 mg tablet 40 mg PO DAILY 0RF No Action albuterol sulfate 90 mcg/actuation HFA aerosol inhaler 1 puff inhalation QID PRN (Reason: shortness of breath or wheezing) Qty: 8.5 6RF promethazine-DM 6.25-15 mg/5 mL syrup 5 ml PO Q6H Qty: 118 0RF atorvastatin 80 mg tablet See Rx Instructions .ROUTE .COMPLEX Qty: 90 3RF Dose Instruction: TAKE ONE TABLET BY MOUTH DAILY Rx Instructions: TAKE ONE TABLET BY MOUTH DAILY magnesium L-lactate 84 mg tablet extended release 84 mg PO BID Qty: 180 3RF carvedilol 6.25 mg tablet 6.25 mg PO BID Qty: 180 3RF Rx Instructions: must administer with a meal/food warfarin 3 mg tablet 3 mg PO DIRECTED Qty: 90 2RF Protocol: Dose Management Condition: Saturday Dose/Route: 3 mg Instruction: 1 x 3 mg tablet Condition: Saturday Dose/Route: 3 mg Instruction: 1 x 3 mg tablet Condition: Saturday Dose/Route: 4 mg Instruction: 1 x 4 mg tablet Condition: Saturday Dose/Route: 3 mg Instruction: 1 x 3 mg tablet Condition: Dose/Route: 4 mg Instruction: 1 x 4 mg tablet Condition: Saturday Dose/Route: 3 mg Instruction: 1 x 3 mg tablet Condition: Saturday Dose/Route: 3 mg Instruction: 1 x 3 mg tablet Protocol Text: Adjustment Start Date: Saturday09/13/21 INR Value: 35.7 Seconds INR Date: 09/13/21 Recheck Date: 10/11/21 warfarin 4 mg tablet 4 mg PO DIRECTED Qty: 90 2RF Protocol: Dose Management Condition: Saturday Dose/Route: 3 mg Instruction: 1 x 3 mg tablet Condition: Saturday Dose/Route: 3 mg Instruction: 1 x 3 mg tablet Condition: Saturday Dose/Route: 4 mg Instruction: 1 x 4 mg tablet Condition: Saturday Dose/Route: 3 mg Instruction: 1 x 3 mg tablet Condition: Dose/Route: 4 mg Instruction: 1 x 4 mg tablet Condition: Saturday Dose/Route: 3 mg Instruction: 1 x 3 mg tablet Condition: Saturday Dose/Route: 3 mg Instruction: 1 x 3 mg tablet Protocol Text: Adjustment Start Date: Saturday09/13/21 INR Value: 35.7 Seconds INR Date: 09/13/21 Recheck Date: 10/11/21 Rx Instructions: Daily famotidine [Pepcid AC] 20 mg tablet 20 mg PO DAILY Qty: 90 3RF Discharge Orders: Discharge ED (Routine); Ordered 09/10/21 Ordered By: Rick Vergara Referrals: Gurwinder Lomeli DO [Primary Care Provider] - Discharge Diet: Usual diet Discharge Activity: Resume usual activity Patient Instructions: Furosemide (By mouth), Potassium Chloride (By mouth), Leg Edema (ED) Activity Restrictions/Additional Instructions: Thank you for visiting the emergency department. You were seen and evaluated for leg swelling. The exact cause of your symptoms is unclear though likely rel ated to your underlying medical problems. After discussion with cardiology we recommend increasing your Lasix from 40 mg in the morning and 20 mg in the evening to 40 mg twice daily. Additionally, g iven this increase, please take your potassium supplementation 20 mEq twice daily. You require repeat laboratory testing in 1 week. I will message our case management for assistance in following up with cardiology this week or early next week. Please return to the emergency department for worsening symptoms, chest pain, shortness of breath, or anything else that you are concerned about a feel needs emergency department evaluation. Coding Level of Care Code ED Bean Weigher for Daniela Dixon Exam Comprehensive
--- NOTE | 2021-09-10 12:06 | ECG_ITS ---
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 Measurements Intervals [place] Rate: 86 P: IA: QRS: 49 QRSD: 91 T: 64 QT: 355 QTc: 425 Interpretive Statements Multifocal atrial rhythm LOW QRS VOLTAGE IN PRECORDIAL LEADS [QRS DEFLECTION < 1.0 mV IN CHEST LEADS] ABNORMAL RHYTHM ECG INTERPRETATION BASED ON A DEFAULT AGE OF 40 YEARS Compared to ECG 05/27/2021 09:35:14 Low QRS voltage now present Sinus rhythm no longer present ST (T wave) deviation no longer present Early repolarization no longer present Electronically Signed On 09-11-2021 23:50:39 CHAIR INSTALLER by Farhat Cervantes M.D. [id number] f
[2021-09-10 12:48] LABS: Basophils # 0.1 10^3/uL (0.0-0.1); Basophils % 0.7 %; Eosinophils # 0.1 10^3/uL (0.0-0.8); Eosinophils % 0.7 %; Hematocrit 38.7 % (37.0-47.0); Hemoglobin 12.5 g/dL (11.5-15.3); Lymphocytes # 0.9 10^3/uL (0.8-4.8); Lymphocytes % 8.1 %; Mean Corpuscular HGB Conc 32.3 g/dL (30.0-36.0); Mean Corpuscular Hemoglobin 29.3 pg (28.0-34.0); Mean Corpuscular Volume 90.6 fl (81-99); Mean Platelet Volume 10.2 fL (7.4-10.4); Monocytes # 0.8 10^3/uL (0.2-0.9); Monocytes % 7.4 %; Neutrophils # 9.22 10^3/uL (1.8-7.7); Neutrophils % 82.7 %; Nucleated Red Blood Cells % 0 %; Platelet Count 205 10^3/cmm (130-400); Red Blood Count 4.27 10^6/uL (4.1-5.3); Red Cell Distribution Width 14.1 % (12.1-15.1); White Blood Count 11.2 10^3/uL (4.0-10.0)
[2021-09-10 13:00] LABS: INR 2.26 (0.8-1.2)
[2021-09-10 13:08] LABS: Troponin(5th) Baseline 11 ng/L (0-10)
[2021-09-10 13:15] LABS: Alanine Aminotransferase 16 U/L (0-33); Albumin Level 3.8 g/dL (3.5-5.2); Alkaline Phosphatase 194 IU/L (35-105); Anion Gap 18.1 (5-19); Aspartate Amino Transferase 18 U/L (0-32); Blood Urea Nitrogen 10 mg/dL (8-23); Calcium 9.3 mg/dL (8.5-10.5); Carbon Dioxide 24 mmol/L (22-29); Chloride 94 mmol/L (98-107); Globulin 2.8 g/dL (1.3-4.6); Glucose 96 mg/dL (65-115); NT Pro B Type Natriuretic Pept 319 pg/mL (0-125); Osmolality Calculated 273 mOsm/kg (285-295); Potassium 4.1 mmol/L (3.5-5.1); Sodium 132 mmol/L (136-145); Total Bilirubin 0.8 mg/dL (0.15-1.2); Total Protein 6.6 g/dL (6.6-8.7)
--- NOTE | 2021-09-10 13:24 | USR_ITS ---
PROCEDURE INFORMATION: Exam: US Duplex Lower Extremity Veins, Bilateral Exam date and time: 09/10/2021 1:24 PM Age: 71 years old Clinical indication: Swelling (edema) of limb; Lower extremity, bilateral; Patient HX: H/o bypass in the left lower extremity (nothing recent); Additional info: Leg swelling, asymmetry, HX dvt TECHNIQUE: Imaging protocol: Real-time duplex ultrasound of the extremities with 2-D wilson scale, color Doppler flow and spectral waveform analysis with image documentation. Complete exam focused on the bilateral lower extremity veins. COMPARISON: US soft tissue/extremity [id number] 09/23/2020 12:14 PM FINDINGS: Right deep veins: No deep venous thrombosis in the visualized right common femoral, profunda femoris, superficial femoral, popliteal, peroneal, or posterior tibial veins. Right superficial veins: Saphenofemoral junction is patent without thrombus. Left deep veins: No deep venous thrombosis in the visualized left common femoral, profunda femoris, superficial femoral, popliteal, peroneal, or posterior tibial veins. Left superficial veins: Saphenofemoral junction is patent without thrombus. Soft tissues: Subcutaneous edema. US/[place] [id number] IMPRESSION: No deep venous thrombosis in the visualized bilateral lower extremities.
[2021-09-10 14:28] VITALS: BP 181/86; PULSE 88; O2SAT 100
[2021-09-10 16:00] VITALS: BP 152/85; PULSE 86; RESP 18; O2SAT 99
--- NOTE | 2021-09-11 09:01 | DCPLANNER ---
Addendum entered by Annemarie Enamorado 09/22/21 11:13: Patient had a follow up appointment scheduled for 09.18.21 with [facility] - patient did attend appointment. Addendum entered by Annemarie Enamorado 09/12/21 14:41: Patient has a follow up appointment scheduled for Saturday, September 18, 2021 at 11:[address] Santamaria. workshop manager called patient and gave patient the appointment information. The ER physician also wanted some repeat lab work, machine adjuster leader case trim had order scanned into patients chart. workshop manager told patient that when she went to appointment at [facility], that she would need to have blood work completed. Original Note: workshop manager had message to schedule a follow up appointment for patient with [facility]. workshop manager emailed patients information to Haylee Bell, patients information will be printed and reviewed. Clinic will call patient with appointment information.
== END 2021-09-10 16:28 | disposition home or self-care (01) ==
PROVIDERS: Emergency Provider Emergency Medicine; PCP Family Medicine
DX: I11.0 Hypertensive heart disease with heart failure (principal); I50.9 Heart failure, unspecified; Z79.01 Long term (current) use of anticoagulants; J44.9 Chronic obstructive pulmonary disease, unspecified; E78.5 Hyperlipidemia, unspecified; Z77.22 Contact with and (suspected) exposure to environmental tobacco smoke (acute) (chronic); M79.89 Other specified soft tissue disorders; Z86.718 Personal history of other venous thrombosis and embolism
CPT/HCPCS: 71045; 80053; 83880; 84484; 85025; 85610; 93005; 93970; 99283

== ENCOUNTER 2021-09-13 09:34 | Outpatient (CLI) | payer MEDICARE, OTHER, SELFPAY ==
--- NOTE | 2021-09-13 10:15 | USCV_ITS ---
Nimo Pressley Age: 71 Gender: F : 1950 Exam Date: 09/13/2021 09:55 Ordering Phys: Yvonne Santamaria MD ([email or web address]) Technologist: Guerda Arrington [place] [facility] [place] PVD Risk Factors: Previous Vascular Surgery: RIGHT LEFT Waveform Velocity (cm/s) Velocity (cm/s) Waveform Triphasic 230.3 Iliac Prox 388.7 Triphasic Triphasic 210.3 Iliac Mid 249.5 Triphasic Triphasic 208.6 Iliac Distal 190.1 Triphasic Triphasic 284.6 CHIROPRACTIC DOCTOR 223.3 Triphasic N/A 0.0 SFA Prox N/A N/A 0.0 SFA Mid N/A N/A 0.0 SFA Dist 66.8 Monophasic Monophasic 63.9 POP 99.4 Monophasic N/A 0.0 ANIMAL HUSBANDRY MANAGER N/A Monophasic 34.2 DPA N/A FINDINGS ANITHA NOT DONE DUE TO NO FLOW/PT IN TOO MUCH PAIN LT BYPASS GRAFT APPEARS PATENT FROM PROX ANASTOM TO DIST ANASTOM AT LEFT SFA No Doppler flow signals in the right superficial femoral artery. Monophasic and continuous waveform in the right popliteal and dorsalis pedis artery. Elevated Doppler flow velocities at the left proximal iliac artery with significant flow turbulence No Doppler flow signals in the proximal and mid superficial femoral artery on the left side. No Doppler flow signals in the posterior tibial and dorsalis pedis arteries on the left side CONCLUSIONS 1. Features of total occlusion of the superior femoral artery on the right side with some reconstitution of flow at the level of the popliteal artery and dorsalis pedis artery. The posterior tibial artery appears to be occluded. 2. Total occlusion of the proximal and mid superficial femoral artery on the left side. 3. Features suggesting greater than 60% stenosis at the proximal common iliac artery on the left side 4. Patent ?Ileo femoral bypass graft on the left side. 5. Features of total occlusion of the posterior tibial and dorsalis pedis arteries on the left side. 6. ABIs could not be obtained. 7. Compared to the study from 01/06/2020, the occlusion of the infrapopliteal vessels on the left side appears to be new. Dr Farhat Cervantes MD [facility] (Electronically Signed) Final Date: 15 September 2021 09:36 S
== END 2021-09-13 09:35 | disposition home or self-care (01) ==
LOC: RAD 09:39
PROVIDERS: PCP Family Medicine; Visit Provider Internal Medicine Cardiovascular Disease
DX: I73.9 Peripheral vascular disease, unspecified (principal); I70.8 Atherosclerosis of other arteries
CPT/HCPCS: 85610; 93925

== ENCOUNTER 2021-09-18 11:18 | Outpatient (CLI) | payer MEDICARE, OTHER, SELFPAY ==
[2021-09-18 12:25] LABS: Blood Urea Nitrogen 8 mg/dL (8-23); Calcium 9.4 mg/dL (8.5-10.5); Carbon Dioxide 24 mmol/L (22-29); Chloride 96 mmol/L (98-107); Glucose 94 mg/dL (65-115); Osmolality Calculated 272 mOsm/kg (285-295); Sodium 132 mmol/L (136-145)
[2021-09-18 12:26] LABS: Anion Gap 16.1 (5-19); Potassium 4.1 mmol/L (3.5-5.1)
[2021-09-18 15:10] LABS: NT Pro B Type Natriuretic Pept 212 pg/mL (0-125)
== END 2021-09-18 11:19 | disposition home or self-care (01) ==
LOC: LAB 11:22
PROVIDERS: PCP Family Medicine; Visit Provider Internal Medicine Cardiovascular Disease
DX: I10 Essential (primary) hypertension (principal); I73.9 Peripheral vascular disease, unspecified; I50.9 Heart failure, unspecified; R06.02 Shortness of breath; I77.9 Disorder of arteries and arterioles, unspecified; R60.9 Edema, unspecified
CPT/HCPCS: 36415; 80048; 83735; 83880

== ENCOUNTER 2021-09-25 12:23 | Outpatient (CLI) | payer MEDICARE, OTHER, SELFPAY ==
[2021-09-25 13:49] LABS: Anion Gap 17.2 (5-19); Blood Urea Nitrogen 12 mg/dL (8-23); Calcium 9.5 mg/dL (8.5-10.5); Carbon Dioxide 31 mmol/L (22-29); Chloride 87 mmol/L (98-107); Glucose 100 mg/dL (65-115); Osmolality Calculated 274 mOsm/kg (285-295); Potassium 3.2 mmol/L (3.5-5.1); Sodium 132 mmol/L (136-145)
== END 2021-09-25 12:24 | disposition home or self-care (01) ==
PROVIDERS: PCP Family Medicine; Visit Provider Internal Medicine Cardiovascular Disease
DX: R06.02 Shortness of breath (principal); I10 Essential (primary) hypertension; I50.9 Heart failure, unspecified; R60.9 Edema, unspecified
CPT/HCPCS: 80048

== ENCOUNTER 2021-10-05 09:27 | Outpatient (CLI) | payer MEDICARE, OTHER, SELFPAY | END 2021-10-05 09:28 | disposition home or self-care (01) | LOC: WOUND 09:28 | PROVIDERS: PCP Family Medicine; Visit Provider Emergency Medicine | DX: I96 Gangrene, not elsewhere classified (principal); I87.2 Venous insufficiency (chronic) (peripheral); L97.812 Non-pressure chronic ulcer of other part of right lower leg with fat layer exposed; J44.9 Chronic obstructive pulmonary disease, unspecified; Z87.891 Personal history of nicotine dependence | CPT/HCPCS: 11042; 11045; 99214; A6197 ==

== ENCOUNTER → 2021-10-06 09:02 | Outpatient (BNVA) | payer MEDICARE, OTHER, SELFPAY | PROVIDERS: PCP Family Medicine; Visit Provider Internal Medicine Cardiovascular Disease | DX: I11.0 Hypertensive heart disease with heart failure (principal); I50.9 Heart failure, unspecified; I70.209 Unspecified atherosclerosis of native arteries of extremities, unspecified extremity; I77.9 Disorder of arteries and arterioles, unspecified; R06.02 Shortness of breath | CPT/HCPCS: 80048; 83735; 83880; 85610 ==

== ENCOUNTER 2021-10-19 13:09 | Outpatient (CLI) | payer MEDICARE, OTHER, SELFPAY | END 2021-10-19 13:10 | disposition home or self-care (01) | LOC: WOUND 13:10 | PROVIDERS: PCP Family Medicine; Visit Provider Emergency Medicine | DX: I87.2 Venous insufficiency (chronic) (peripheral) (principal); L97.811 Non-pressure chronic ulcer of other part of right lower leg limited to breakdown of skin; Z87.891 Personal history of nicotine dependence | CPT/HCPCS: 11042; 11045 ==

== ENCOUNTER 2021-10-26 13:20 | Outpatient (CLI) | payer MEDICARE, OTHER, SELFPAY | END 2021-10-26 13:21 | disposition home or self-care (01) | LOC: WOUND 13:23 | PROVIDERS: PCP Family Medicine; Visit Provider Nurse Practitioner Family | DX: I87.2 Venous insufficiency (chronic) (peripheral) (principal); I96 Gangrene, not elsewhere classified; L97.811 Non-pressure chronic ulcer of other part of right lower leg limited to breakdown of skin; Z87.891 Personal history of nicotine dependence | CPT/HCPCS: 99213 ==

== ENCOUNTER → 2021-10-31 14:43 | Outpatient (BNVA) | payer MEDICARE, OTHER, SELFPAY | PROVIDERS: PCP Family Medicine; Visit Provider Orthopaedic Surgery | DX: M54.50 Low back pain, unspecified (principal); M54.6 Pain in thoracic spine; S22.080D Wedge compression fracture of T11-T12 vertebra, subsequent encounter for fracture with routine healing; X58.XXXD Exposure to other specified factors, subsequent encounter | CPT/HCPCS: 72072; 72110 ==

== ENCOUNTER → 2021-11-09 09:33 | Outpatient (BNVA) | payer MEDICARE, OTHER, SELFPAY | PROVIDERS: PCP Family Medicine; Visit Provider Nurse Practitioner Family | DX: Z09 Encounter for follow-up examination after completed treatment for conditions other than malignant neoplasm (principal) | CPT/HCPCS: 99212; 99213 ==

== ENCOUNTER → 2021-12-06 13:05 | Outpatient (BNVA) | payer MEDICARE, OTHER, SELFPAY | PROVIDERS: PCP Family Medicine; Visit Provider Internal Medicine Cardiovascular Disease | DX: Z79.01 Long term (current) use of anticoagulants (principal) ==

== ENCOUNTER → 2021-12-07 08:10 | Outpatient (BNVA) | payer MEDICARE, OTHER, SELFPAY | PROVIDERS: PCP Family Medicine; Visit Provider Nurse Practitioner Family | DX: I89.0 Lymphedema, not elsewhere classified (principal); Z87.891 Personal history of nicotine dependence | CPT/HCPCS: 99213 ==

== ENCOUNTER → 2021-12-13 10:00 | Outpatient (BNVA) | payer MEDICARE, OTHER, SELFPAY | PROVIDERS: PCP Family Medicine; Visit Provider Internal Medicine Cardiovascular Disease | DX: Z79.01 Long term (current) use of anticoagulants (principal) ==

== ENCOUNTER → 2021-12-14 08:32 | Outpatient (BNVA) | payer MEDICARE, OTHER, SELFPAY | PROVIDERS: PCP Family Medicine; Visit Provider Nurse Practitioner Family | DX: S81.802A Unspecified open wound, left lower leg, initial encounter (principal); S81.801A Unspecified open wound, right lower leg, initial encounter; X58.XXXA Exposure to other specified factors, initial encounter; I73.9 Peripheral vascular disease, unspecified; R06.02 Shortness of breath; I50.9 Heart failure, unspecified; R60.0 Localized edema; Z87.891 Personal history of nicotine dependence; R07.9 Chest pain, unspecified | CPT/HCPCS: 80048; 83880; 99213; 99214 ==

== ENCOUNTER → 2021-12-21 13:51 | Outpatient (BNVA) | payer MEDICARE, OTHER, SELFPAY | PROVIDERS: PCP Family Medicine; Visit Provider Orthopaedic Surgery | DX: M48.062 Spinal stenosis, lumbar region with neurogenic claudication (principal); M81.0 Age-related osteoporosis without current pathological fracture; M47.816 Spondylosis without myelopathy or radiculopathy, lumbar region | CPT/HCPCS: 72070; 72100; 99213; 99214 ==

== ENCOUNTER 2021-12-26 09:09 | Outpatient (CLI) | payer MEDICARE, OTHER, SELFPAY ==
--- NOTE | 2021-12-26 09:24 | MR_ITS ---
WS: [id number] MRI LUMBAR SPINE NONCONTRAST TECHNIQUE: Sagittal T1, T2 and STIR imaging. Axial T1 and T2 imaging. CLINICAL INFORMATION: M54.6 - Pain in thoracic spine COMPARISON: None. FINDINGS: Mild lumbar curve. Slight compression injury endplate L5 with edema. In addition slight compression o f the superior endplate L4 with a small amount of edema. Findings are consistent with recent compress ion. Recommend correlation with low-back pain. L1-L2: Mild annular bulging. Mild facet arthropathy. Spinal canal and foramen are patent. L2-L3: Mild annular bulging with slight narrowing of the subarticular recess bilaterally. Mild facet arthropathy. Spinal canal and foramen are patent. L3-L4: Mild annular bulging. Mild central canal stenosis. Slight narrowing of the subarticular recess bilaterally. Small LEFT foraminal protrusion with mild LEFT and no significant RIGHT foraminal narro wing. Moderate facet arthropathy. L4-L5: Slight anterolisthesis L4 on L5. Mild disc bulging with severe central canal stenosis. Moderat e facet arthropathy with small facet effusions. Impingement traversing L5 nerve roots bilaterally. Mi ld RIGHT and no significant LEFT foraminal narrowing. L5-S1: Mild disc bulging with osteophytic ridging. Moderate facet arthropathy. Spinal canal is patent . Mild LEFT foraminal narrowing. Adrenal glands are normal. LEFT renal cysts. MR/MR lumbar spine wo con* [id number] IMPRESSION: 1. Mild compression with edema involving the superior endplate L4 and inferior endplate L5 with recent mild compression fractures. Minimal loss vertebral bod y height. No significant retropulsion. 2. Severe central canal stenosis L4-L5 due to grade 1 anterolisthesis with fac et arthropathy and mild disc bulging. 3. Mild central canal stenosis L2-L3 with narrowing of the subarticular recess bilaterally. Mild narrowing of the LEFT subarticular recess L3-L4. 4. LEFT foraminal protrusion L3-L4 with mild LEFT foraminal narrowing. Slight contact of the exiting LEFT L3 nerve root. 5. Small RIGHT foraminal protrusion L4-L5 with mild RIGHT foraminal narrowing and slight contact of the exiting RIGHT L4 nerve root. 6. Moderate facet arthropathy worse at L4-L5 and L5-S1.
--- NOTE | 2021-12-26 09:24 | MR_ITS ---
WS: [id number] MRI THORACIC SPINE WITHOUT CONTRAST TECHNIQUE: Sagittal T1, T2 and STIR imaging. Axial T2 imaging. Noncontrast imaging obtained. CLINICAL INFORMATION: M54.50 - Low back pain, unspecified COMPARISON: None. FINDINGS: Mild thoracic curve. Moderate thoracic kyphosis. Incidental hemangioma T2 vertebral body. Chronic compression of the superior endplate T4 with anterior wedging. Compression of the T10 inferio r endplate and T11 superior endplates with edema. T4 compression fracture appears chronic with loss o f approximately 50% vertebral body height. Fracture cleft in the inferior endplate of T10 with edema. Loss of approximately 50% vertebral body h eight. Similar-appearing compression of the T11 superior endplate with anterior wedging and loss of a pproximately 40% vertebral body height. T2 signal abnormality in the disc space. Findings may be post traumatic but recommend correlation for infection. Discitis is not excluded. Recommend interval follow-up. Minimal retropulsion of the posterior inferior endplate at T10 with sli ght contact of the thoracic cord and mild central canal stenosis. Cord signal is normal. Moderate LEF T T10-T11 bony foraminal narrowing. Moderate facet arthropathy lower thoracic spine. Partially visual ized LEFT renal cyst. Adrenal glands are normal. Normal caliber thoracic aorta. MR/MR thoracic spin wo con* [id number] IMPRESSION: 1. Moderate thoracic kyphosis. Chronic anterior wedging of the T4 vertebral neftali dy. No retropulsion. No edema in this location. 2. Focal kyphosis at the T10-T11 level. Compression inferior endplate T10 with fluid-filled fracture cleft and superior endplate T11 with edema in the disc s pace. Recommend correlation for discitis. These may represent benign compressio n fractures but recommend correlation for discitis and interval follow-up. 3. Slight retropulsion of the posterior endplate at T10 eccentric to the LEFT with mild central canal stenosis. 4. Moderate LEFT bony foraminal narrowing T10-T11
== END 2021-12-26 09:10 | disposition home or self-care (01) ==
LOC: RAD 09:13
PROVIDERS: PCP Family Medicine; Visit Provider Orthopaedic Surgery
DX: M48.56XA Collapsed vertebra, not elsewhere classified, lumbar region, initial encounter for fracture (principal); M48.061 Spinal stenosis, lumbar region without neurogenic claudication; M51.26 Other intervertebral disc displacement, lumbar region; M47.896 Other spondylosis, lumbar region; M40.294 Other kyphosis, thoracic region; M48.04 Spinal stenosis, thoracic region
CPT/HCPCS: 72146; 72148

== ENCOUNTER → 2021-12-28 08:40 | Outpatient (BNVA) | payer MEDICARE, OTHER, SELFPAY | PROVIDERS: PCP Family Medicine; Visit Provider Nurse Practitioner Family | DX: I96 Gangrene, not elsewhere classified (principal); L97.821 Non-pressure chronic ulcer of other part of left lower leg limited to breakdown of skin | CPT/HCPCS: 99212; A6251; A6253 ==

== ENCOUNTER → 2021-12-29 13:39 | Outpatient (BNVA) | payer MEDICARE, OTHER, SELFPAY | PROVIDERS: PCP Family Medicine; Visit Provider Internal Medicine Cardiovascular Disease | DX: Z79.01 Long term (current) use of anticoagulants (principal) ==

== ENCOUNTER → 2022-01-02 09:45 | Outpatient (BNVA) | payer MEDICARE, OTHER, SELFPAY | PROVIDERS: PCP Family Medicine; Visit Provider Orthopaedic Surgery | DX: M48.062 Spinal stenosis, lumbar region with neurogenic claudication (principal) | CPT/HCPCS: 99214 ==

== ENCOUNTER → 2022-01-04 08:35 | Outpatient (BNVA) | payer MEDICARE, OTHER, SELFPAY | PROVIDERS: PCP Family Medicine; Visit Provider Nurse Practitioner Family | DX: I96 Gangrene, not elsewhere classified (principal); L97.811 Non-pressure chronic ulcer of other part of right lower leg limited to breakdown of skin; L97.821 Non-pressure chronic ulcer of other part of left lower leg limited to breakdown of skin | CPT/HCPCS: 99213; A6197 ==

== ENCOUNTER → 2022-01-11 08:30 | Outpatient (BNVA) | payer MEDICARE, OTHER, SELFPAY | PROVIDERS: PCP Family Medicine; Visit Provider Nurse Practitioner Family | DX: I96 Gangrene, not elsewhere classified (principal); L97.811 Non-pressure chronic ulcer of other part of right lower leg limited to breakdown of skin; L97.821 Non-pressure chronic ulcer of other part of left lower leg limited to breakdown of skin | CPT/HCPCS: 99212; 99213; A6197 ==

== ENCOUNTER → 2022-01-18 08:08 | Outpatient (BNVA) | payer MEDICARE, OTHER, SELFPAY | PROVIDERS: PCP Family Medicine; Visit Provider Nurse Practitioner Family | DX: I96 Gangrene, not elsewhere classified (principal); L97.811 Non-pressure chronic ulcer of other part of right lower leg limited to breakdown of skin; L97.821 Non-pressure chronic ulcer of other part of left lower leg limited to breakdown of skin | CPT/HCPCS: 99212; 99213 ==

== ENCOUNTER → 2022-01-25 08:15 | Outpatient (BNVA) | payer MEDICARE, OTHER, SELFPAY | PROVIDERS: PCP Family Medicine; Visit Provider Nurse Practitioner Family | DX: I96 Gangrene, not elsewhere classified (principal); L97.811 Non-pressure chronic ulcer of other part of right lower leg limited to breakdown of skin; L97.821 Non-pressure chronic ulcer of other part of left lower leg limited to breakdown of skin | CPT/HCPCS: 99213 ==

== ENCOUNTER → 2022-01-26 09:02 | Outpatient (BNVA) | payer MEDICARE, OTHER, SELFPAY | PROVIDERS: PCP Family Medicine; Visit Provider Internal Medicine Cardiovascular Disease | DX: Z79.01 Long term (current) use of anticoagulants (principal) ==

== ENCOUNTER → 2022-01-31 09:35 | Outpatient (BNVA) | payer MEDICARE, OTHER, SELFPAY | PROVIDERS: PCP Family Medicine; Visit Provider Internal Medicine Cardiovascular Disease | DX: Z79.01 Long term (current) use of anticoagulants (principal) ==

== ENCOUNTER → 2022-02-01 08:28 | Outpatient (BNVA) | payer MEDICARE, OTHER, SELFPAY | PROVIDERS: PCP Family Medicine; Visit Provider Nurse Practitioner Family | DX: L97.821 Non-pressure chronic ulcer of other part of left lower leg limited to breakdown of skin (principal); L97.811 Non-pressure chronic ulcer of other part of right lower leg limited to breakdown of skin | CPT/HCPCS: 99212 ==

== ENCOUNTER → 2022-02-08 07:55 | Outpatient (BNVA) | payer MEDICARE, OTHER, SELFPAY | PROVIDERS: PCP Family Medicine; Visit Provider Nurse Practitioner Family | DX: L97.811 Non-pressure chronic ulcer of other part of right lower leg limited to breakdown of skin (principal); L97.821 Non-pressure chronic ulcer of other part of left lower leg limited to breakdown of skin | CPT/HCPCS: 99213; A6251 ==

== ENCOUNTER → 2022-02-12 09:58 | Outpatient (BNVA) | payer MEDICARE, OTHER, SELFPAY | PROVIDERS: PCP Family Medicine; Visit Provider Internal Medicine Cardiovascular Disease | DX: I11.0 Hypertensive heart disease with heart failure (principal); I50.9 Heart failure, unspecified; R60.9 Edema, unspecified; I73.9 Peripheral vascular disease, unspecified; E78.5 Hyperlipidemia, unspecified; I65.29 Occlusion and stenosis of unspecified carotid artery; Z79.01 Long term (current) use of anticoagulants; Z87.891 Personal history of nicotine dependence | CPT/HCPCS: 36415; 80048; 83735; 83880; 99214 ==

== ENCOUNTER → 2022-02-13 14:53 | Outpatient (BNVA) | payer MEDICARE, OTHER, SELFPAY | PROVIDERS: PCP Family Medicine; Visit Provider Nurse Practitioner Family | DX: L97.811 Non-pressure chronic ulcer of other part of right lower leg limited to breakdown of skin (principal); Z09 Encounter for follow-up examination after completed treatment for conditions other than malignant neoplasm; I77.9 Disorder of arteries and arterioles, unspecified; R06.02 Shortness of breath; I10 Essential (primary) hypertension; I50.9 Heart failure, unspecified | CPT/HCPCS: 87070; 87077; 87186; 99213 ==

== ENCOUNTER → 2022-02-16 10:48 | Outpatient (BNVA) | payer MEDICARE, OTHER, SELFPAY | PROVIDERS: PCP Family Medicine; Visit Provider Internal Medicine Cardiovascular Disease | DX: Z79.01 Long term (current) use of anticoagulants (principal) ==

== ENCOUNTER → 2022-02-22 09:16 | Outpatient (BNVA) | payer MEDICARE, OTHER, SELFPAY | PROVIDERS: PCP Family Medicine; Visit Provider Emergency Medicine | DX: I96 Gangrene, not elsewhere classified (principal); L97.811 Non-pressure chronic ulcer of other part of right lower leg limited to breakdown of skin; I89.0 Lymphedema, not elsewhere classified | CPT/HCPCS: 11042; A6210; A6252 ==

== ENCOUNTER → 2022-02-27 11:22 | Day surgery (SDC) | payer MEDICARE, OTHER, SELFPAY ==
[2022-02-27 11:50] VITALS: BP 140/59; PULSE 87; RESP 18; TEMP 36.7; O2SAT 92
--- NOTE | 2022-02-27 12:42 | XRR_ITS ---
PROCEDURE INFORMATION: Exam: XR Chest Exam date and time: 02/27/2022 12:44 PM Age: 71 years old Clinical indication: Device placement; Picc; Additional info: Picc line placement TECHNIQUE: Imaging protocol: Radiologic exam of the chest. Views: 1 view. COMPARISON: CR XR chest 1V portable [id number] 09/10/2021 12:49 PM FINDINGS: Tubes, catheters and devices: Indication states PICC line placement. It is seen within the soft tissues of the right upper arm possibly within proximal brachial vein. Lungs: Unremarkable. No consolidation. Pleural spaces: Unremarkable. No pleural effusion. No pneumothorax. Heart/Mediastinum: Unremarkable. No cardiomegaly. Bones/joints: Unremarkable. Other findings: Stable area of increased density by the left heart border. XR/XR chest 1V portable [id number] IMPRESSION: 1. Soft tissue density stable by the left heart border. 2. PICC line as above.
--- NOTE | 2022-02-27 13:30 | PC.NURSE ---
Pt c/o aching feeling in the right axilla area. Area appeared slightly swollen. Arm circumference noted at 32, up from original measurement of 30. Tobramycin stopped. This nurse conferred with Dr. Azul, radiology, and Dev Wan, RN, experienced in PICCs and midlines. Right midline dc'd. Raine Fregoso RN notified. New midline cath placed to left arm per Raine Fregoso. Good blood return noted. Flushed without difficulty. Approx 77 mL of Tobramycin infused prior to infusion being stopped. Consulted pharmacistTrace. Medication not necrotic and instructed patient to use warm moist heat and ice as needed to manage any pain. No redness or irritation noted to right upper extremity at this time. [facility], Kristofer, notified of right midline dc and new line placed to left arm. Kristofer stated she would update team. Pt denies pain to right upper arm at this time. Tobramycin restarted to left midline and infused. No reaction noted.
== END ==
PROVIDERS: PCP Family Medicine; Visit Provider Emergency Medicine
DX: Z45.2 Encounter for adjustment and management of vascular access device (principal)
CPT/HCPCS: 36569; 71045; 96365; J3260

== ENCOUNTER 2022-02-28 16:14 | Outpatient (CLI) | payer MEDICARE, OTHER, SELFPAY ==
[2022-02-28 18:50] LABS: Blood Urea Nitrogen 16 mg/dL (8-23)
[2022-02-28 21:58] LABS: Tobramycin Trough 1.9 ug/mL (0.0-2.0)
== END 2022-02-28 16:15 | disposition home or self-care (01) ==
PROVIDERS: PCP Family Medicine; Visit Provider Emergency Medicine
DX: A49.9 Bacterial infection, unspecified (principal)
CPT/HCPCS: 80200; 82565; 84520

== ENCOUNTER → 2022-03-01 09:16 | Outpatient (BNVA) | payer MEDICARE, OTHER, SELFPAY | PROVIDERS: PCP Family Medicine; Visit Provider Nurse Practitioner Family | DX: I96 Gangrene, not elsewhere classified (principal); L97.811 Non-pressure chronic ulcer of other part of right lower leg limited to breakdown of skin | CPT/HCPCS: 99212; A6252 ==

== ENCOUNTER → 2022-03-02 13:26 | Outpatient (BNVA) | payer MEDICARE, OTHER, SELFPAY | PROVIDERS: PCP Family Medicine; Visit Provider Internal Medicine Cardiovascular Disease | DX: Z79.01 Long term (current) use of anticoagulants (principal) ==

== ENCOUNTER → 2022-03-06 09:45 | Outpatient (BNVA) | payer MEDICARE, OTHER, SELFPAY | PROVIDERS: PCP Family Medicine; Visit Provider Nurse Practitioner Family | DX: I96 Gangrene, not elsewhere classified (principal); L97.811 Non-pressure chronic ulcer of other part of right lower leg limited to breakdown of skin | CPT/HCPCS: 99213; A6252 ==

== ENCOUNTER → 2022-03-14 08:44 | Outpatient (BNVA) | payer MEDICARE, OTHER, SELFPAY | PROVIDERS: PCP Family Medicine; Visit Provider Nurse Practitioner Family | DX: I11.0 Hypertensive heart disease with heart failure (principal); I50.9 Heart failure, unspecified; R73.09 Other abnormal glucose; E78.5 Hyperlipidemia, unspecified; R60.9 Edema, unspecified | CPT/HCPCS: 36415; 80048; 83036; 84439; 84443; 84481; 99214 ==

== ENCOUNTER → 2022-03-20 09:30 | Outpatient (BNVA) | payer MEDICARE, OTHER, SELFPAY | PROVIDERS: PCP Family Medicine; Visit Provider Podiatrist Foot & Ankle Surgery | DX: M21.611 Bunion of right foot (principal); M21.612 Bunion of left foot; L60.3 Nail dystrophy; I73.9 Peripheral vascular disease, unspecified; M20.40 Other hammer toe(s) (acquired), unspecified foot | CPT/HCPCS: 11721 ==

== ENCOUNTER → 2022-03-22 09:44 | Outpatient (BNVA) | payer MEDICARE, OTHER, SELFPAY | PROVIDERS: PCP Family Medicine; Visit Provider Nurse Practitioner Family | DX: I96 Gangrene, not elsewhere classified (principal); L97.811 Non-pressure chronic ulcer of other part of right lower leg limited to breakdown of skin | CPT/HCPCS: 99214; A6252; A6253 ==

== ENCOUNTER → 2022-03-29 10:11 | Outpatient (BNVA) | payer MEDICARE, OTHER, SELFPAY | PROVIDERS: PCP Family Medicine; Visit Provider Nurse Practitioner Family | DX: I96 Gangrene, not elsewhere classified (principal); L97.811 Non-pressure chronic ulcer of other part of right lower leg limited to breakdown of skin | CPT/HCPCS: 99213 ==

== ENCOUNTER → 2022-03-30 08:41 | Outpatient (BNVA) | payer MEDICARE, OTHER, SELFPAY | PROVIDERS: PCP Family Medicine; Visit Provider Clinical Nurse Specialist Adult Health | DX: I50.9 Heart failure, unspecified (principal); I10 Essential (primary) hypertension | CPT/HCPCS: 80048; 83880 ==

== ENCOUNTER → 2022-04-04 13:29 | Outpatient (BNVA) | payer MEDICARE, OTHER, SELFPAY | PROVIDERS: PCP Family Medicine; Visit Provider Clinical Nurse Specialist Adult Health | DX: I50.9 Heart failure, unspecified (principal); I95.9 Hypotension, unspecified | CPT/HCPCS: 80048 ==

== ENCOUNTER → 2022-04-05 10:06 | Outpatient (BNVA) | payer MEDICARE, OTHER, SELFPAY | PROVIDERS: PCP Family Medicine; Visit Provider Nurse Practitioner Family | DX: Z09 Encounter for follow-up examination after completed treatment for conditions other than malignant neoplasm (principal) | CPT/HCPCS: 87070; 87077; 87186; 99212 ==

== ENCOUNTER → 2022-04-12 09:25 | Outpatient (BNVA) | payer MEDICARE, OTHER, SELFPAY | PROVIDERS: PCP Family Medicine; Visit Provider Nurse Practitioner Family | DX: I89.0 Lymphedema, not elsewhere classified (principal); L97.519 Non-pressure chronic ulcer of other part of right foot with unspecified severity; L97.529 Non-pressure chronic ulcer of other part of left foot with unspecified severity | CPT/HCPCS: 99213 ==

== ENCOUNTER → 2022-04-19 09:42 | Outpatient (BNVA) | payer MEDICARE, OTHER, SELFPAY | PROVIDERS: PCP Family Medicine; Visit Provider Nurse Practitioner Family | DX: I89.0 Lymphedema, not elsewhere classified (principal) | CPT/HCPCS: 99212 ==

== ENCOUNTER → 2022-05-03 09:16 | Outpatient (BNVA) | payer MEDICARE, OTHER, SELFPAY | PROVIDERS: PCP Family Medicine; Visit Provider Nurse Practitioner Family | DX: Z09 Encounter for follow-up examination after completed treatment for conditions other than malignant neoplasm (principal); I89.0 Lymphedema, not elsewhere classified | CPT/HCPCS: 99213 ==

== ENCOUNTER → 2022-05-15 10:27 | Outpatient (BNVA) | payer MEDICARE, OTHER, SELFPAY | PROVIDERS: PCP Family Medicine; Visit Provider Internal Medicine Cardiovascular Disease | DX: Z01.810 Encounter for preprocedural cardiovascular examination (principal); I11.0 Hypertensive heart disease with heart failure; I50.9 Heart failure, unspecified; R60.9 Edema, unspecified; I73.9 Peripheral vascular disease, unspecified; E78.5 Hyperlipidemia, unspecified; I65.29 Occlusion and stenosis of unspecified carotid artery; Z87.891 Personal history of nicotine dependence; Z79.01 Long term (current) use of anticoagulants | CPT/HCPCS: 99214 ==

== ENCOUNTER → 2022-05-17 09:55 | Outpatient (BNVA) | payer MEDICARE, OTHER, SELFPAY | PROVIDERS: PCP Family Medicine; Visit Provider Orthopaedic Surgery | DX: M48.062 Spinal stenosis, lumbar region with neurogenic claudication (principal) | CPT/HCPCS: 72110; 99214 ==

== ENCOUNTER 2022-05-21 10:49 | Outpatient (CLI) | payer MEDICARE, OTHER, SELFPAY | END 2022-05-21 10:50 | disposition home or self-care (01) | LOC: RT 11:00 | PROVIDERS: PCP Family Medicine; Visit Provider Orthopaedic Surgery | DX: Z01.810 Encounter for preprocedural cardiovascular examination (principal); I48.91 Unspecified atrial fibrillation | CPT/HCPCS: 93005 ==

== ENCOUNTER → 2022-05-24 07:59 | Outpatient (BNVA) | payer MEDICARE, OTHER, SELFPAY | PROVIDERS: PCP Family Medicine; Visit Provider Podiatrist Foot & Ankle Surgery | DX: I73.9 Peripheral vascular disease, unspecified (principal); L60.3 Nail dystrophy; M20.41 Other hammer toe(s) (acquired), right foot; M21.611 Bunion of right foot; M20.42 Other hammer toe(s) (acquired), left foot; M21.612 Bunion of left foot | CPT/HCPCS: 11721 ==

== ENCOUNTER → 2022-05-28 06:43 | Day surgery (SDC) | payer MEDICARE, OTHER, SELFPAY ==
[2022-05-21 08:06] VITALS: BMI 34.0
--- NOTE | 2022-05-21 08:20 | ECG_ITS ---
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 Measurements Intervals [place] Rate: 70 P: MD: QRS: 58 QRSD: 78 T: 59 QT: 382 QTc: 414 Interpretive Statements ATRIAL FIBRILLATION LOW QRS VOLTAGE IN PRECORDIAL LEADS [QRS DEFLECTION < 1.0 mV IN CHEST LEADS] POSSIBLE RIGHT VENTRICULAR CONDUCTION DELAY [RSR (QR) IN V1/V2] Compared to ECG 09/10/2021 12:30:37 No significant changes Electronically Signed On 05-21-2022 17:43:38 CDT by Itz Hale M.D. [id number]
[2022-05-21 09:00] LABS: Basophils # 0.1 10^3/uL (0.0-0.1); Basophils % 0.7 %; Eosinophils # 0.4 10^3/uL (0.0-0.8); Eosinophils % 3.8 %; Hematocrit 32.4 % (37.0-47.0); Hemoglobin 10.4 g/dL (11.5-15.3); Lymphocytes % 10.2 %; Mean Corpuscular HGB Conc 32.1 g/dL (30.0-36.0); Mean Corpuscular Hemoglobin 29.9 pg (28.0-34.0); Mean Corpuscular Volume 93.1 fl (81-99); Mean Platelet Volume 10.6 fL (7.4-10.4); Monocytes % 10.1 %; Neutrophils # 7.11 10^3/uL (1.8-7.7); Neutrophils % 74.8 %; Nucleated Red Blood Cells % 0 %; Platelet Count 221 10^3/cmm (130-400); Red Blood Count 3.48 10^6/uL (4.1-5.3); Red Cell Distribution Width 15.8 % (12.1-15.1); White Blood Count 9.5 10^3/uL (4.0-10.0)
--- NOTE | 2022-05-21 09:23 | P.ANESASSM_ITS ---
Pre-Anesthetic Assessment Height/Weight: Height 1.63 m Weight 89.811 kg Preop Diagnosis: Lumbar spine stenosis Operation Date: 05/28/22 07:30 Proposed Procedures p Lumbar Spine Decompression L4/5 47823 M48.062(Not Applicable) - Hans Hutson, DO s Kyphoplasty T10/11 L4 and L5 12739A3 S22.000A(Not Applicable) - Hans Hutson, DO Familial anesthetic complications: None Social Alcohol (Occasionally ) and No tobacco Exam alert, oriented x 3 and clear to auscultation bilaterally Irregular rate, normal rhythm Airway Submandibular: within normal limits Cervical ROM: Other (Limited extension ) Mallampati: Class II Dentition: false Pulmonary Chronic Obstructive Pulmonary Disease and Shortness of Breath Chronic respiratory failure, continuous 2 LPM NC CV/HEM Atrial Fibrillation, Anemia (Hgb 10.4 ), Congestive Heart Failure, Hypertension (Hx of poor control ) and Peripheral Vascular Disease (B/L carotid stenosis, On chronic anticoagualtion for PAD ) Can get around [employer] with walker w/o CP but does get SOB Severe peripheral vascular disease with lifestyle limiting claudication s/p left fem-pop Carotid stenosis hx of endarterectomy Venous stasis From Evaluation by Doctor Rosalio 05/15/22 (1) Encounter for pre-operative cardiovascular clearance: ?Assessment & Plan: No further testing warranted. -Will need to be closely monitored sabi-operatively for CHF exacerbation. (2) CHF (congestive heart failure), NYHA class III: ?Assessment & Plan: Leg swelling likely a combination of lymphedema and some component of CHF. continue bumex 2 mg BID and potassium 3,?spironolactone 25 mg daily and metolazone to 2.5 mg every other day (use it 4 days/week) * Follow up in 6 months--continue f/u with wound care LE Duplex 08/2021 ?CONCLUSIONS ?1.? Features of total occlusion of the superior femoral artery ?on the right side with some reconstitution of flow at the level ?of the popliteal artery and dorsalis pedis artery.? The ?posterior tibial artery appears to be occluded. ?2.? Total occlusion of the proximal and mid superficial femoral ?artery on the left side. ?3.? Features suggesting greater than 60% stenosis at the ?proximal common iliac? artery on the left side ?4.? Patent? ? ?Ileo femoral bypass graft on the left side. ?5.? Features of total occlusion of the posterior tibial and ?dorsalis pedis arteries on the left side. ?6.? ABIs could not be obtained. ?7.? Compared to the study from 01/06/2020, the occlusion of the ?infrapopliteal vessels on the left side appears to be new. 06/2021 Carotid Study CONCLUSIONS ?Bilateral ICA stenosis less than 50%. ?Diffuse mild atherosclerosis. Nuc Med Study 06/08 IMPRESSIONS ?1.? Myocardial perfusion imaging is normal. ?2.? Overall left ventricular systolic function is hyperdynamic without regional ?wall motion abnormalities. ?3. The left ventricular ejection fraction is hyperdynamic with a value of 83%. ?4.? No significant EKG changes with Lexiscan infusion. ?5.? No prior similar studies to compare. Stress test 06/08 CONCLUSION: 1. No significant EKG changes with the LexiScan infusion 2. No LexiScan induced chest pain or cardiac arrhythmia. 3. Normal blood pressure and heart rate response. 4. Sestamibi/sestamibi perfusion scan pending; see separate report. TTE 05/2021 CONCLUSIONS ?LV systolic function is normal with EF of 55 to 60%. ?Grade 1 diastolic dysfunction. ?No significant valvular dysfunction seen. ?No comparison studies are noted. None reported Hx of hyponatremia , Na 131 on 05/21/22 Hepatic None reported GI Central abdominal mass or swelling Metabolic Hyperlipidemia Musc/skel Lower Back Pain and Osteoarthritis/DJD Compression fracture Neuropsych Transient Ischemic Attack (Hx of mini strokes per patient no weakness or difficulty speaking afterwords ) Anesthetic Plan ASA status: 3 Anesthesia: Anesthesia Evaluation and General Other: We discussed risk and benefits of general anesthesia including PONV, sore throat (sometimes severe), corneal abrasion, positioning and peripheral nerve injuries, life threatening allergic reaction, post operative ICU admission requiring prolonged intubation, aspiration, stroke, heart attack, , permanent blindness, and rare incidences of recall. Patient consents to proceed with gener al anesthesia. Patient instructed to hold spironalactone day of surgery and we reviewed medication instructions. Plan GETA, arterial line, minimize perioperative fluid administration. Risk of > 500 ml blood loss (7ml/kg in children): No Medications/Allergies Home Medications Medication Instructions Recorded Confirmed Last Taken Type albuterol sulfate 90 mcg/actuation 1 puff inhalation QID PRN 04/26/21 05/21/22 02/26/22 Rx aerosol inhaler shortness of breath or wheezing #8.5 grams magnesium L-lactate 84 mg 84 mg PO BID #180 tabs 06/13/21 05/21/22 02/26/22 Rx tablet,extended release carvedilol 6.25 mg tablet 6.25 mg PO BID #180 tabs 06/21/21 05/21/22 03/30/22 06:06 Rx warfarin 3 mg tablet 3 mg PO DIRECTED #90 tabs 07/03/21 05/21/22 02/26/22 Rx famotidine 20 mg tablet (Pepcid AC) 20 mg PO DAILY #90 tabs 07/17/21 05/21/22 02/26/22 Rx bumetanide 2 mg tablet 2 mg PO BID #60 tabs 10/02/21 05/21/22 03/29/22 09:06 Rx atorvastatin 80 mg tablet 80 mg PO DAILY #90 tabs 01/01/22 05/21/22 02/26/22 Rx metolazone 2.5 mg tablet 2.5 mg PO .every other day #30 tabs 02/12/22 05/21/22 03/28/22 09:04 Rx potassium chloride 20 mEq 100 meq PO DIRECTED #450 tabs 02/12/22 05/21/22 02/26/22 Rx tablet,extended release spironolactone 25 mg tablet 25 mg PO DAILY #90 tabs 02/12/22 05/21/22 03/30/22 07:05 Rx warfarin 2 mg tablet 2 mg PO DAILY #30 tabs 02/12/22 05/21/22 02/26/22 Rx hydrocodone 5 mg-acetaminophen 325 1 tab PO Q4H PRN pain 5 days #30 04/10/22 05/21/22 Unknown Rx mg tablet tabs Allergies Allergy/AdvReac Type Severity Reaction Status Date / Time No Known Allergies Allergy Verified 05/17/22 10:22 [facility] Anesthesia Medical History Abdominal distention Acute hyponatremia Carotid artery stenosis Carotid disease, bilateral Cellulitis Chest pain COPD (chronic obstructive pulmonary disease) Dyslipidemia Femoral artery occlusion Hypertension PAD (peripheral artery disease) Peripheral edema Respiratory failure Smoker SOB (shortness of breath) TIA (transient ischemic attack) Uncontrolled hypertension Venous stasis dermatitis of right lower extremity Surgical History S/P peripheral artery angioplasty with stent placement S/P vascular surgery Status post carotid surgery (~2012) bilateral Family History Other CAD (coronary artery disease) Social History Smoking and tobacco status: former smoker Quit status (tobacco): considering quitting Second hand smoke exposure: Yes Alcohol intake: never Caregiver/support person: Yes Lives independently: Yes Household members: spouse Marital status: service: No Current occupational status: retired History of recent travel: No Current gender identity: Female Data Anesthesia : 05/21/22 08:15 05/21/22 08:15 Short CBC 05/21/22 Range/Units 08:15 WBC 9.5 (4.0-10.0) 10^3/uL Hgb 10.4 L (11.5-15.3) g/dL Hct 32.4 L (37.0-47.0) % MCV 93.1 (81-99) fl Plt Count 221 (130-400) 10^3/cmm Neut % (Auto) 74.8 % Neut # (Auto) 7.11 (1.8-7.7) 10^3/uL Cardiac Studies: Echocardiogram 05/27/21 Sestamibi Stress Test (Cardiology) 05/28
[2022-05-21 09:31] LABS: Anion Gap 10.5 (5-19); Blood Urea Nitrogen 17 mg/dL (8-23); Calcium 9.2 mg/dL (8.5-10.5); Carbon Dioxide 34 mmol/L (22-29); Chloride 90 mmol/L (98-107); Glucose 100 mg/dL (65-115); Osmolality Calculated 274 mOsm/kg (285-295); Potassium 3.5 mmol/L (3.5-5.1); Sodium 131 mmol/L (136-145)
[2022-05-28] VITALS (12 sets, daily range): BP systolic 121–156; BP diastolic 62–101; PULSE 78–88; RESP 12–22; TEMP 36.1–36.2; O2SAT 83–100
--- NOTE | 2022-05-28 | XR_ITS ---
WS: [id number] Lumbar spine, C-arm fluoroscopy, 05/28/2022. Clinical Data: lumbar decompression, L4-5, kyphoplasty: T10, T11, L4, L5 Comparison: Lumbar spine, 05/17/2022 Findings: Dr. Hutson performed a lumbar decompression. There was vertebroplasty cement at T10, T11, L4 and L5. XR/XR lumbar spine 1V [id number] Impression: Lumbar decompression and vertebral plasty cement at T10, T11, L4 and L5.
--- NOTE | 2022-05-28 | SCC_ITS ---
Procedure done: 1. kyphoplasty T10 2. kyphoplasty T11 3. kyphoplasty L4 4. Kyphoplasty L5 5. Laminectomy with partial facetectomies L4/5 192 seconds of fluoroscopic guidance, for a cumulative dose of 100.3 mGy and 200.9 mGy , was provided to Dr. Hutson by the radiology department. C-arm images of the lumbar were saved for the patient's permanent record. [facility]
[2022-05-28] MEDS: sodium chloride 0.9% 1,000 ML 30 ML IV (07:21)
--- NOTE | 2022-05-28 08:10 | ANES.PAUD2 ---
Pre-Anesthetic Update Pre-Anesthetic Assessment: Date of Surgery/Procedure: 05/28/22 Preop Diagnosis: Compression fractures at T10, T11, L4, L5 lumbar stenosis L4-5 Proposed Procedure: Operation Date: 05/28/22 08:10 Proposed Procedures p Lumbar Spine Decompression L4/5 46897 M48.062(Not Applicable) - Hans Hutson, DO s Kyphoplasty T10/11 L4 and L5 96944R1 S22.000A(Not Applicable) - Hans Hutson, DO Any changes to Pre-Anesthetic Assessment?: Yes Changes from Pre-Anesthetic Assessment: Patient with open sores on feet per note from Dr. Sarabia 05/24, with possible presence of maggots at one point. Surgeon notified of this change in patient condition. Last Intake: Intake Last Liquid Date 05/27/22 Last Liquid Time 23:30 Last Solid Date 05/27/22 Last Solid Time 17:00 Vitals: Oxygen Delivery Me thod 05/28/22 07:07 Exam: Pre-Anes Outpt Exam: alert, oriented x 3, clear to auscultation bilaterally and regular rate & rhythm Cardiac Studies: Echocardiogram 05/27/21 Sestamibi Stress Test (Cardiology) 05/28/21
--- NOTE | 2022-05-28 08:29 | W.PM.OPSUD ---
Surgery/Procedure H&P Update DATE OF PROCEDURE: May 28, 2022 DATE H&P PERFORMED: 05/17/20 H&P UPDATE INFORMATION: I have reviewed H&P completed within last 30 days, I have examined patient prior to procedure and No changes to prior documentation PREOP DIAGNOSIS: Compression fractures at T10, T11, L4, L5 lumbar stenosis L4-5 PLANNED PROCEDURE: Operation Date: 05/28/22 08:10 Proposed Procedures p Lumbar Spine Decompression L4/5 06190 M48.062(Not Applicable) - Hans Hutson DO s Kyphoplasty T10/11 L4 and L5 05535C6 S22.000A(Not Applicable) - Hans Hutson DO
[2022-05-28] MEDS: ceFAZolin 2,000 MG in sodium chloride 0.9% (plus) 50 ML 100 MG IV (09:10)
[2022-05-28] MEDS: iohexol 300 mg/mL 50 mL Btl (OR ONLY) XX (10:10)
[2022-05-28] MEDS: ipratropium-albuterol 3 mL Neb INHALATION ×2 (11:28→12:53)
--- NOTE | 2022-05-28 11:37 | PM.OP ---
Operative Report Date of procedure: May 28, 2022 Pre-op diagnosis: Preop Diagnosis 1. wedge osteoportic Compression fracture at T10 2. wedge osteoportic Compression fracture at T11 3. wedge osteoportic Compression fracture at L4 4. wedge osteoportic Compression fracture at L5 5. neurogenic lumbar stenosis L4-5 Post-op diagnosis: same Procedure done: 1. kyphoplasty T10 2. kyphoplasty T11 3. kyphoplasty L4 4. Kyphoplasty L5 5. Laminectomy with partial facetectomies L4/5 Surgeon: Hans Hutson Scooping Machine Tender: Homar Cadet Estimated blood loss (mL): 15 Procedure: 1. kyphoplasty T10 2. kyphoplasty T11 3. kyphoplasty L4 4. Kyphoplasty L5 5. Laminectomy with partial facetectomies L4/5 Patient is brought to the operative suite. After undergoing anesthesia they are placed in the prone position. All areas of impingement are well padded. Patient is then prepped and draped in the normal sterile fashion. Biplanar fluoroscopy was brought in. Attention was first brought to the T10 level. AP and lateral fluoroscopy ensured that the incision was made over the left T10 pedicle. The superolateral position was found with the awl the awl was then inserted to the level of the back of the vertebrae. The drill was inserted in the balloon. Balloon was deflated. Next attention was brought to the T11 level. Again the awl was placed at the superior portion of the pedicle. After the skin incision was made. A biopsy was done at the T11 level. The drill was then inserted the balloon. Then both these levels were filled with cement. AP lateral fluoroscopy ensured the cement in the x-rays were in good position. Next attention was brought to the L4 level again the skin tear is made on the left lateral side. The awl was inserted followed by the drill followed by the balloon. This step was process was also done at L5. With the all followed by the drill followed by balloon. Then cement was used to fill the L4 and L5 vertebrae. Again the C-arm ensured that the cement stayed in good position. Next attention was brought to performing the laminectomy with partial facetectomies at L4-5. A skin incision is made over the L4/5 level. This is confirmed under c-arm guidance. A series of dilators are passed and the tubular retractor is docked on the L4 lamina. A bovie is used to clear the soft tissue off the lamina and the L 4/5 facet joint. A high speed geri is then used to perform the laminectomy and take down the medial aspect of the L 4/5 facet joint. A kerrison rongeure was then used to take down the remaining lamina and smooth the edged of the laminectomy up to the point where the ligamentum flavum attaches. Attention was then brought to the medial aspect of the facet joint. The remaining medial aspect of the superior and inferior aspect of the facet joint were taken down with the kerrison from the pedicle of L4 to L 5. The facet joint had significant hypertrophy. Attention was then brought to the Ligamentum Flavum. The ligament was taken down from the lamina of L4 to L5 and out medially to the remaining facet joint. The ligament was thick. The dura was then exposed. The dura was in good repair. The L4 nerve was then traced with a curette out the L4/5 foramen and found to be adequately decompressed. The L5 nerve was traced with a curette around the L5 pedicle. The lateral recess was opened with a kerrison helping to further decompress the L5 nerve. The tubular retractor was then tilted to the contralateral side. The bovie was used to take down the soft tissue on the spinous process. The high speed geri was used to take down the spinous process and then the contralateral lamina of L4. The kerrison rongeur was used to take down the remaining lamina to the point where the ligamentum flavum attached and the ligamentum flavum was taken down from L4 to L5. The kerrison rongeur was then used to reach across and take down the medial aspect of the contralateral L4/5 facet joint.The currete was used to trace the contralateral L4 nerve out the L4/5 foramen to make sure it was decompressed adequatesly and the L5 was traced around the L5 pedicle. The lateral recess was opened further with the kerrison to ensure the L5 is adequately decompressed. Wound is then irrigated copiously with saline and surgiflo is used to stop any bleeding. The tubular retractor is removed and the wound is closed with vicryl and monocryl suture. Glue is then used to protect the wound. A sterile dressing is then placed. Patient was then placed in the supine position and transferred to the PACU in stable condition.
--- NOTE | 2022-05-28 12:35 | SUR.PHASEII ---
Patient O2 level is low. Contacted RT for treat and eval.
--- NOTE | 2022-05-28 12:50 | SUR.PHASEII ---
RT giving neb tx at bedside
[2022-05-28] MEDS: HYDROcodone-acetaminophen 5-325 mg Tablet 1 TAB PO (13:09)
--- NOTE | 2022-05-28 13:21 | ANE.PACU2 ---
Inpatient post-anesthesia follow up: Airway intact: Yes Vital signs: Temperature 97.2 F Pulse Rate 88 Respiratory Rate 18 Blood Pressure 146/89 Pulse Oximetry 93 Oxygen Delivery Me thod Nasal Cannula Oxygen Flow Rate 5 Fraction of Inspir ed Oxygen Hydration adequate: Yes Nausea and vomiting: No Pain level: 1 Mental status: Baseline
== END | disposition home or self-care (01) ==
PROVIDERS: Anesthesiology; PCP Family Medicine; Visit Provider Orthopaedic Surgery
PROC: (CPT 63005; principal; 2022-05-28 08:10)
PROC: (CPT 22513; 2022-05-28 08:10)
DX: S22.070A Wedge compression fracture of T9-T10 vertebra, initial encounter for closed fracture (principal); S22.080A Wedge compression fracture of T11-T12 vertebra, initial encounter for closed fracture; S32.040A Wedge compression fracture of fourth lumbar vertebra, initial encounter for closed fracture; S32.050A Wedge compression fracture of fifth lumbar vertebra, initial encounter for closed fracture; X58.XXXA Exposure to other specified factors, initial encounter; M48.062 Spinal stenosis, lumbar region with neurogenic claudication; J44.9 Chronic obstructive pulmonary disease, unspecified; Z99.81 Dependence on supplemental oxygen; I11.0 Hypertensive heart disease with heart failure; I50.9 Heart failure, unspecified; I48.91 Unspecified atrial fibrillation; Z79.01 Long term (current) use of anticoagulants; I73.9 Peripheral vascular disease, unspecified; E78.5 Hyperlipidemia, unspecified; Z86.73 Personal history of transient ischemic attack (TIA), and cerebral infarction without residual deficits; Z87.891 Personal history of nicotine dependence
CPT/HCPCS: 22513; 22515 ×2; 63047; 36415; 51702; 72020; 76000; 80048; 85025; 88307; 88311; 94640; J1100; J2405; J2704; J3010; J7030

== ENCOUNTER → 2022-06-05 08:42 | Outpatient (BNVA) | payer MEDICARE, OTHER, SELFPAY | PROVIDERS: PCP Family Medicine; Visit Provider Physician Assistant | DX: Z47.89 Encounter for other orthopedic aftercare (principal) | CPT/HCPCS: 99024 ==

== ENCOUNTER → 2022-06-12 12:20 | Outpatient (BNVA) | payer MEDICARE, OTHER, SELFPAY | PROVIDERS: PCP Family Medicine; Visit Provider Physician Assistant | DX: I70.209 Unspecified atherosclerosis of native arteries of extremities, unspecified extremity (principal); Z79.01 Long term (current) use of anticoagulants; Z47.89 Encounter for other orthopedic aftercare | CPT/HCPCS: 85610; 99024 ==

== ENCOUNTER 2022-06-19 10:12 | Outpatient (CLI) | payer MEDICARE, OTHER, SELFPAY ==
--- NOTE | 2022-06-19 10:00 | USCV_ITS ---
Nimo Pressley Age: 71 Gender: F : 1950 Exam Date: 06/19/2022 10:18 Ordering Phys: Lance Plascencia MD (Andy) ([email or web address] [place]) Technologist: CT [place] [facility] [place]: stenosis Risk Factors: Previous Vascular Surgery: bilateral cea's Right Brachial BP: / Left Brachial BP: / Right Left Velocity (cm/s) Spectral Plaque Velocity (cm/s) Spectral Plaque Syst/Diast Broadening Syst/Diast Broadening 79.40/ 9.90 Prox CCA 97.00 / 15.70 78.30/ 20.90 Mid CCA 72.70 / 18.50 72.80/ 15.40 Distal CCA 97.00 / 20.00 43.80/ 11.20 Prox ICA 76.00 / 16.90 71.70/ 16.50 Mid ICA 82.50 / 17.20 55.20/ 11.80 Distal ICA 77.60 / 11.40 122.80 ECA 64.00 0.90 ICA/CCA 0.85 Antegrade Vertebral Antegrade 85.70/ 7.20 cm/s 71.50/ 20.20 cm/s Bi Subclavian Bi 215.2 236.8 0 0 FINDINGS technically difficult exam, pt with heavy breathing and moving vascular structures. no stenosis noted. CONCLUSIONS Right ICA stenosis <50%. Left ICA stenosis <50%. Normal antegrade Doppler flow noted in the left vertebral artery. Normal antegrade Doppler flow noted in the right vertebral artery. Koko Arango MD (Electronically Signed) Final Date: 19 June 2022 16:28 S
== END 2022-06-19 10:13 | disposition home or self-care (01) ==
LOC: RAD 10:15
PROVIDERS: PCP Family Medicine; Visit Provider Thoracic Surgery (Cardiothoracic Vascular Surgery)
DX: I70.209 Unspecified atherosclerosis of native arteries of extremities, unspecified extremity (principal); Z79.01 Long term (current) use of anticoagulants; I65.23 Occlusion and stenosis of bilateral carotid arteries
CPT/HCPCS: 85610; 93880

== ENCOUNTER → 2022-07-23 08:30 | Outpatient (BNVA) | payer MEDICARE, OTHER, SELFPAY | PROVIDERS: PCP Family Medicine; Visit Provider Internal Medicine Cardiovascular Disease | DX: I70.209 Unspecified atherosclerosis of native arteries of extremities, unspecified extremity (principal); Z79.01 Long term (current) use of anticoagulants | CPT/HCPCS: 85610 ==

== ENCOUNTER → 2022-07-30 08:45 | Outpatient (BNVA) | payer MEDICARE, OTHER, SELFPAY | PROVIDERS: PCP Family Medicine; Visit Provider Internal Medicine Cardiovascular Disease | DX: I70.209 Unspecified atherosclerosis of native arteries of extremities, unspecified extremity (principal); Z79.01 Long term (current) use of anticoagulants | CPT/HCPCS: 85610 ==

== ENCOUNTER → 2022-08-06 10:25 | Outpatient (BNVA) | payer MEDICARE, OTHER, SELFPAY | PROVIDERS: PCP Family Medicine; Visit Provider Internal Medicine Cardiovascular Disease | DX: I70.209 Unspecified atherosclerosis of native arteries of extremities, unspecified extremity (principal); Z79.01 Long term (current) use of anticoagulants | CPT/HCPCS: 85610 ==

== ENCOUNTER → 2022-08-14 15:33 | Outpatient (BNVA) | payer MEDICARE, OTHER, SELFPAY | PROVIDERS: PCP Family Medicine; Visit Provider Internal Medicine Cardiovascular Disease | DX: I70.209 Unspecified atherosclerosis of native arteries of extremities, unspecified extremity (principal); Z79.01 Long term (current) use of anticoagulants | CPT/HCPCS: 85610 ==

== ENCOUNTER → 2022-08-21 08:57 | Outpatient (BNVA) | payer MEDICARE, OTHER, SELFPAY | PROVIDERS: PCP Family Medicine; Visit Provider Family Medicine | DX: I70.209 Unspecified atherosclerosis of native arteries of extremities, unspecified extremity (principal); Z79.01 Long term (current) use of anticoagulants | CPT/HCPCS: 85610 ==

== ENCOUNTER → 2022-08-23 12:40 | Outpatient (BNVA) | payer MEDICARE, OTHER, SELFPAY | PROVIDERS: PCP Family Medicine; Visit Provider Podiatrist Foot & Ankle Surgery | DX: E11.8 Type 2 diabetes mellitus with unspecified complications (principal); I73.9 Peripheral vascular disease, unspecified; L60.3 Nail dystrophy; M20.42 Other hammer toe(s) (acquired), left foot; M20.41 Other hammer toe(s) (acquired), right foot; M21.612 Bunion of left foot; M21.611 Bunion of right foot | CPT/HCPCS: 11721 ==

== ENCOUNTER 2022-09-14 12:57 | Inpatient (IN) | payer MEDICARE, OTHER, SELFPAY ==
[2022-09-14 13:02] VITALS: BP 146/71; PULSE 95; RESP 16; TEMP 36.9; O2SAT 95
[2022-09-14 14:47] LABS: Basophils # 0.1 10^3/uL (0.0-0.1); Basophils % 0.5 %; Eosinophils # 0.5 10^3/uL (0.0-0.8); Eosinophils % 4.1 %; Hematocrit 35.5 % (37.0-47.0); Hemoglobin 11.1 g/dL (11.5-15.3); Lymphocytes # 0.9 10^3/uL (0.8-4.8); Mean Corpuscular HGB Conc 31.3 g/dL (30.0-36.0); Mean Corpuscular Hemoglobin 28.6 pg (28.0-34.0); Mean Corpuscular Volume 91.5 fl (81-99); Mean Platelet Volume 10.2 fL (7.4-10.4); Monocytes % 7.4 %; Neutrophils # 10.48 10^3/uL (1.8-7.7); Neutrophils % 80.4 %; Nucleated Red Blood Cells % 0 %; Platelet Count 240 10^3/cmm (130-400); Red Blood Count 3.88 10^6/uL (4.1-5.3); Red Cell Distribution Width 14.9 % (12.1-15.1); White Blood Count 13.1 10^3/uL (4.0-10.0)
--- NOTE | 2022-09-14 15:01 | XR_ITS ---
WS: [id number] Exam: XR chest 1V portable [id number] Date/Time of Exam: 09/14/2022 3:01 PM Reason For Exam: dyspnea/cough Comparison 02/27/2022. The lungs are hyperinflated. No consolidated infiltrates are seen. No pleural effusions. Cardiomedias tinal silhouette is unremarkable for technique. Again noted is a soft tissue density along the lower left pleural cavity unchanged in appearance. Regional bony elements are unremarkable. XR/XR chest 1V portable [id number] IMPRESSION: 1. Pulmonary hyperinflation. No acute process seen. 2. Pleural-based soft tissue density involving the left base is stable in appea addy when compared to the prior images as far back as 05/27/2021.
--- NOTE | 2022-09-14 15:01 | USCV_ITS ---
Nimo Pressley Age: 72 Gender: F : 1950 Exam Date: 09/14/2022 15:18 Ordering Phys: Adeel Bejarano DO Technologist: QUINN Exam Location: [facility] [place] Indication: edema FINDINGS: patient refused to complete exam secondary to pain. limited exam. negative as imaged. CONCLUSIONS Incomplete exam due to pain Only LLE partially evaluated proximally. RLE not evaluated as patient refused additional imaging LLE GSV and CFV patent where imaged. Remainder not evaluated Koko Arango MD (Electronically Signed) Final Date: 14 September 2022 17:40 S
--- NOTE | 2022-09-14 15:01 | ECG_ITS ---
[facility] Test Date: 2022-09-14 Pat Name: Nimo Pressley Department: Room: Gender: Female Director Building: : 1950 Requested By: Adeel Perla Order Number: [id number] Barbara MD: Yvonne Santamaria M.D. Measurements Intervals [place] Rate: 106 P: 85 MO: 180 QRS: 43 QRSD: 56 T: 56 QT: 302 QTc: 402 Interpretive Statements SINUS TACHYCARDIA LOW QRS VOLTAGE IN PRECORDIAL LEADS [QRS DEFLECTION < 1.0 mV IN CHEST LEADS] ABNORMAL RHYTHM ECG Compared to ECG 05/21/2022 08:38:31 Atrial fibrillation no longer present Electronically Signed On 09-14-2022 21:47:20 FABRIC STRETCHER by Yvonne Santamaria M.D. [id number]
--- NOTE | 2022-09-14 15:02 | ED_ITS ---
HPI - Extremity Problem General: Chief complaint: Extremity Problem,Nontraumatic Stated complaint: wounds on legs not healing Time Seen by Provider: 09/14/22 14:35 History of Present Illness: 72-year-old female presents to the emergency room complaining of wounds on her legs. She has had open sores on the legs and wrapping trying to care for them at home. Previously she had been seen at the wound care clinic had stopped there and they have been doing her own wound care at home very foul-smelling lower extremities with large amount of edema bilaterally. She denies any fever sweats chills chest pain abdominal pain. No vomiting or diarrhea. MD Complaint: extremity pain and extremity swelling Onset (ago): week(s) Pain Consistency: constant Location: left, right and lower extremity Quality: aching and constant Radiation: distal Relieving factors: nothing Exacerbating factors: nothing Associated symptoms: Deny chest pain or fever(s) Context: immobilization Review of Systems Const: Reports: fatigue and malaise; Denies: fever(s), chills, body aches or change in appetite ENMT: Denies: throat pain, ear or mastoid pain, nasal discharge or nasal congestion Card: Reports: edema, swelling of feet/ankles, dyspnea on exertion and orthopnea; Denies: chest pain Resp: Reports: dyspnea; Denies: productive cough, non-productive cough or wheezing GI: Denies: abdominal pain, nausea, vomiting, hematemesis, coffee ground emesis, diarrhea, constipation, bloating, hematochezia or melena : Denies: flank pain, difficulty voiding, dysuria, urinary frequency or urinary urgency Skin/Breast: Reports: pruritus and erythema [facility] ED PFSH: Medical History Abdominal distention Acute hyponatremia Carotid artery stenosis Carotid disease, bilateral Cellulitis Chest pain COPD (chronic obstructive pulmonary disease) Dyslipidemia Femoral artery occlusion Hypertension Lymphedema of both lower extremities PAD (peripheral artery disease) Peripheral edema Respiratory failure Smoker SOB (shortness of breath) TIA (transient ischemic attack) Uncontrolled hypertension Venous stasis dermatitis of right lower extremity Surgical History S/P peripheral artery angioplasty with stent placement S/P vascular surgery Status post carotid surgery (~2012) bilateral Family History Other CAD (coronary artery disease) Social History Smoking and tobacco status: former smoker Quit status (tobacco): considering quitting Second hand smoke exposure: Yes Alcohol intake: never Caregiver/support person: Yes Lives independently: Yes Household members: spouse Marital status: service: No Current occupational status: retired History of recent travel: No Current gender identity: Female Physical Exam Const: GENERAL APPEARANCE: cooperative and comfortable ORIENTATION/CONSCIOUSNESS: Yes awake, Yes oriented to person, Yes oriented to place and Yes oriented to time HENMT: COMMON NORMALS: normocephalic, atraumatic and hearing grossly normal bilaterally HEAD & SCALP: normocephalic and atraumatic Resp: COMMON NORMALS: normal respiratory effort, No retractions and No use of accessory muscles Cardio: COMMON NORMALS: regular rate, regular rhythm and No murmurs present (Cardio) RATE: regular rate RHYTHM: regular rhythm GI: COMMON NORMALS: Soft to palpation and No hepatosplenomegaly present AUSCULTATION: Yes normoactive bowel sounds PALPATION: Yes Soft to palpation, No Tenderness to palpation present (GI), No Guarding due to palpation present (GI) and Yes No hepatosplenomegaly present Extremity: COMMON NORMALS: normal to inspection, capillary refill normal and no calf tenderness GENERAL: Yes edema Neuro: SENSORIUM/ORIENTATION: Yes oriented to person, Yes oriented to place and Yes oriented to time Skin: OTHER: Partial thickness skin breakdown and ulceration diffusely and circumferentially around the toes there is a large amount of swelling. Very foul-smelling drainage on bandages removed. Course Vital Signs: Vital signs: Vital Signs Temperature 97.7 F 09/19/22 08:00 Pulse Rate 80 09/19/22 08:00 Respiratory Rate 18 09/19/22 08:00 Blood Pressure 121/59 09/19/22 08:00 Pulse Oximetry 93 09/19/22 08:00 Oxygen Delivery Me thod 09/19/22 08:00 Oxygen Flow Rate 2 09/19/22 03:21 MDM - Extremity (Nontraumatic) Medical Decision Making Bilateral lower extremity cellulitis large amount of swelling no palpable abscess or focal point is apparent. Limited venous duplex due to pain there is no DVT. Discussed with hospitalist will need further vascular evaluation cultures done has have started on vancomycin for antibiotics. Dr. Richardson will see the patient in the department Medical Records I reviewed the patient's medical records. Lab Data I reviewed the patient's lab results. 09/14/22 14:26 09/14/22 14:26 Radiology Impressions Chest X-Ray 09/14/22 15:01 IMPRESSION: 1. Pulmonary hyperinflation. No acute process seen. 2. Pleural-based soft tissue density involving the left base is stable in appearance when compared to the prior images as far back as 05/27/2021. Duplex Scan Lower Extremity Artery 09/14/22 17:14 IMPRESSION: 1. No flow is seen in the right superficial femoral artery suspicious for occlusion. Recommend catheter angiogram correlation and interventional radiology consultation. 2. Monophasic flow throughout the bilateral extremities suggesting inflow disease. ADDENDUM: 09/14/222016 THIS REPORT CONTAINS FINDINGS THAT MAY BE CRITICAL TO PATIENT CARE. The findings were verbally communicated via telephone conference with Dr Churchill at 8:15 PM PROFESSIONAL HEALTHCARE REPRESENTATIVE on 09/14/2022. The findings were acknowledged and understood. Foot CT 09/14/22 17:26 IMPRESSION: 1. Diffuse subcutaneous soft tissue edema with skin thickening suggesting cellulitis. No drainable fluid collection or abscess. 2. No acute osseous injury. Lower Extremity CT 09/14/22 17:26 IMPRESSION: 1. Diffuse subcutaneous soft tissue edema with skin thickening suggesting cellulitis. No drainable fluid collection or abscess. 2. No acute osseous injury. Aorta w/Runoff CTA 09/15/22 11:31 IMPRESSION: 1. Right superficial femoral artery appears largely occluded with reconstitution distally with contrast seen in the distal superficial femoral artery, popliteal artery and arteries of the right calf. 2. Left superficial femoral artery bypass graft is seen which appears patent. [place] left superficial femoral artery appears occluded. 3. Subcutaneous edema throughout the lower extremities bilaterally, nonspecific. 4. Celiac artery eccentric atherosclerotic calcification proximally with 60-70% luminal narrowing. 5. Superior mesenteric artery eccentric atherosclerotic calcification with 70-80% luminal narrowing suspected. 6. Bilateral atherosclerotic calcification at the ostia of the renal arteries with suspected 60-70% luminal narrowing, right greater than left. 7. Emphysematous changes. 8. Bibasilar atelectasis versus infiltrate. 9. Coronary artery atherosclerotic calcifications. 10. Hepatic steatosis. 11. Several bilateral renal cysts, negative for follow-up advised. 12. Constipation. 13. Scattered atherosclerotic calcifications throughout the lower extremity arterial system. 14. Left internal iliac artery appears occluded. 15. Prominent inguinal lymph nodes bilaterally measuring up to 11 mm on the right, nonspecific. 16. Monsalve catheter in the urinary bladder with air presumed iatrogenic. ADDENDUM: 09/15/22 [id number] Please ignore under findings the statement Fifth reason of initial without bowel IIA left lower rough segment nodes thickened Laboratory Results WBC 13.1 10^3/uL (4.0-10.0) H 09/14/22 14: RBC 3.88 10^6/uL (4.1-5.3) L 09/14/22 14: Hgb 11.1 g/dL (11.5-15.3) L 09/14/22 14: Hct 35.5 % (37.0-47.0) L 09/14/22 14: MCV 91.5 fl (81-99) 09/14/22 14: MCH 28.6 pg (28.0-34.0) 09/14/22 14: MCHC 31.3 g/dL (30.0-36.0) 09/14/22 14: RDW 14.9 % (12.1-15.1) 09/14/22 14: Plt Count 240 10^3/cmm (130-400) 09/14/22 14: MPV 10.2 fL (7.4-10.4) 09/14/22 14: Neut % (Auto) 80.4 % 09/14/22 14: Lymph % (Auto) 7.0 % 09/14/22 14: [place] % (Auto) 7.4 % 09/14/22 14: Eos % (Auto) 4.1 % 09/14/22 14: Baso % (Auto) 0.5 % 09/14/22 14: Neut # (Auto) 10.48 10^3/uL (1.8-7.7) H 09/14/22 14: Lymph # (Auto) 0.9 10^3/uL (0.8-4.8) 09/14/22 14:26 [place] # (Auto) 1.0 10^3/uL (0.2-0.9) H 09/14/22 14:26 Eos # (Auto) 0.5 10^3/uL (0.0-0.8) 09/14/22 14:26 Baso # (Auto) 0.1 10^3/uL (0.0-0.1) 09/14/22 14:26 Nucleated RBC % (auto) 0 % 09/14/22 14: Nucleated RBCs # 0.0 /100WBC 09/14/22 14:26 PT 22.40 SECONDS (12.1-14.9) H 09/14/22 15:15 INR 1.93 (0.8-1.2) H 09/14/22 15:15 APTT 42.5 SECONDS (23.9-36.7) H 09/14/22 15:15 Sodium 137 mmol/L (136-145) 09/14/22 14:26 Potassium 4.9 mmol/L (3.5-5.1) 09/14/22 14:26 Chloride 98 mmol/L (98-107) 09/14/22 14:26 Carbon Dioxide 31 mmol/L (22-29) H 09/14/22 14:26 Anion Gap 12.9 (5-19) 09/14/22 14:26 BUN 16 mg/dL (8-23) 09/14/22 14:26 Creatinine 0.7 mg/dL (0.5-0.9) 09/14/22 14:26 GFR Calculation Not Reportable 09/14/22 14:26 Glucose 108 mg/dL (65-115) 09/14/22 14:26 Calculated Osmolality 286 mOsm/kg (285-295) 09/14/22 14:26 Lactic Acid 1.1 mmol/L (0.5-2.2) 09/14/22 14:26 Calcium 9.3 mg/dL (8.5-10.5) 09/14/22 14:26 Iron 46 ug/dL (37-145) 09/14/22 14:26 TIBC 226 mcg/dl 09/14/22 14:26 % Saturation 20.3 % (20-50) 09/14/22 14:26 Unsat Iron Binding 180 ug/dL (112-347) 09/14/22 14:26 Total Bilirubin 0.4 mg/dL (0.15-1.2) 09/14/22 14:26 AST 19 U/L (0-32) 09/14/22 14:26 ALT 14 U/L (0-33) 09/14/22 14:26 Alkaline Phosphatase 170 U/L (35-105) H 09/14/22 14:26 C-Reactive Protein 17.2 mg/L (0.0-4.9) H 09/14/22 14:26 NT-Pro-B Natriuret Pep 392 pg/mL (0-125) H 09/14/22 14:26 Total Protein 7.6 g/dL (6.6-8.7) 09/14/22 14:26 Albumin 3.8 g/dL (3.5-5.2) 09/14/22 14:26 Globulin 3.8 g/dL (1.3-4.6) 09/14/22 14:26 Vitamin B12 377 pg/mL (232-1245) 09/14/22 14:26 Folate 10.5 ng/mL (4.8-37.3) 09/14/22 15:01 Procalcitonin 0.03 ng/mL (0-0.5) 09/14/22 14:26 TSH 2.29 uIU/mL (0.27-4.20) 09/14/22 14:26 TSH Cancelled 09/14/22 14:26 Discharge Plan Discharge Patient Disposition: Admitted As Inpatient Admit Provider: Drew Richardson Clinical Impression: Cellulitis, Peripheral edema, CHF (congestive heart failure), NYHA class III, COPD (chronic obstructive pulmonary disease), Lymphedema of both lower ex tremities, Peripheral vascular disease, Hypertension Condition: Stable Coding Level of Care Code ED Intervention Specialist for Daniela Dixon
[2022-09-14 15:04] LABS: Lactic Sepsis W/Reflex 1.1 mmol/L (0.5-2.2)
[2022-09-14 15:05] LABS: Alanine Aminotransferase 14 U/L (0-33); Albumin Level 3.8 g/dL (3.5-5.2); Alkaline Phosphatase 170 U/L (35-105); Anion Gap 12.9 (5-19); Aspartate Amino Transferase 19 U/L (0-32); Blood Urea Nitrogen 16 mg/dL (8-23); C Reactive Protein 17.2 mg/L (0.0-4.9); Calcium 9.3 mg/dL (8.5-10.5); Carbon Dioxide 31 mmol/L (22-29); Chloride 98 mmol/L (98-107); Globulin 3.8 g/dL (1.3-4.6); Glucose 108 mg/dL (65-115); Osmolality Calculated 286 mOsm/kg (285-295); Potassium 4.9 mmol/L (3.5-5.1); Sodium 137 mmol/L (136-145); Total Bilirubin 0.4 mg/dL (0.15-1.2); Total Protein 7.6 g/dL (6.6-8.7)
[2022-09-14 15:55] LABS: INR 1.93 (0.8-1.2)
[2022-09-14 15:56] LABS: Partial Thromboplastin Time 42.5 SECONDS (23.9-36.7)
--- NOTE | 2022-09-14 17:06 | P.HP_ITS ---
Providers/Chief Complaint Primary Care Provider: Gurwinder Lomeli DO Chief Complaint: wounds on legs not healing History of Present Illness Nimo Pressley is a 72 year old female with past medical history of hypertension, bilateral carotid artery stenosis post carotid enterectomy in 2013, PAD post left femoropopliteal bypass complicated by femoral artery stenosis needing stent placement, chronic bilateral lower extremity edema, active smoker, recent history of laminectomy who followed up with wound care clinic as an outpatient for chronic wounds in her legs presents to the ER today from home with at bedside for worsening of wounds on the leg. As per the patient used to follow-up with wound care clinic but has not followed for last few months. He takes care of wound at home by himself. He does do lymphedema wraps and cleaning of the wound with normal saline and alcohol as he started having more pain in the legs more so in the process for last few weeks he decided to come to the ER today. Currently patient is complaining of extreme pain in all her toes she is able to wiggle her toes. Denies any open wound or seepage. Complains of mild shortness of breath on minimal exertion. States has been this baseline for a long time. Takes Coumadin daily at home. Review of Systems General: Reports: 10 or more systems reviewed and unremarkable except in HPI and below Const: Denies: fever(s), chills, body aches, change in appetite, change in weight, malaise, night sweats, diaphoresis, change in sleep pattern, daytime sleepiness or snoring Eyes: Denies: change in vision, blurry vision, photophobia, eye discomfort or eye discharge ENMT: Denies: throat pain, enlarged tonsils, hoarseness, mouth pain, oral sores, dry mouth, tinnitus, nasal congestion or post nasal drip Card: Denies: chest pain, palpitations, irregular heart rhythm, edema, swelling of feet/ankles, lightheadedness, syncope, pre-syncope, dyspnea on exertion, orthopnea, leg pain with exertion or acrocyanosis Resp: Denies: dyspnea, productive cough, non-productive cough, wheezing, stridor, pain on inspiration, change in phlegm color, hemoptysis or chest congestion GI: Denies: abdominal pain, nausea, vomiting, hematemesis, coffee ground emesis, dysphagia, heartburn, diarrhea, constipation, bloating, GI cramping, change in bowel habits, pain on defecation, hematochezia or melena : Denies: flank pain, dysuria, urinary frequency, urinary urgency, urinary hesitancy, nocturia or hematuria Musc: Denies: neck pain, back pain, extremity pain, joint pain, joint swelling, joint redness, joint stiffness or limited range of motion Neuro: Denies: headache(s), numbness in extremities, weakness in extremities, sensory changes, lack of coordination, difficulty walking, frequent falls, dizziness, vertigo, confusion, Slurred speech present, difficulty communicating thoughts or seizure-like activity Psych: Denies: anxiety, depression, mood swings, panic attacks, hopelessness or irritability Endo: Denies: polyuria, polydipsia, tired all the time, cold intolerance, excessive sweating, flushing or heat intolerance Layo/Lymph: Denies: easy bruising or easy bleeding All/Imm: Denies: tongue swelling, facial swelling or acute wheezing Medications/Allergies Home Medications Medication Instructions Recorded Confirmed Last Taken Type albuterol sulfate 90 mcg/actuation 1 puff inhalation QID PRN 04/26/21 09/15/22 02/26/22 Rx aerosol inhaler shortness of breath or wheezing #8.5 grams hydrocodone 5 mg-acetaminophen 325 1 tab PO Q4H PRN pain 5 days #30 04/10/22 09/15/22 05/27/22 20:00 Rx mg tablet tabs aspirin 81 mg capsule 81 mg PO DAILY 05/28/22 09/15/22 05/23/22 History atorvastatin 80 mg tablet 80 mg PO DAILY #90 tabs 06/05/22 09/15/22 Unknown Rx bumetanide 2 mg tablet 2 mg PO BID #180 tabs 06/05/22 09/15/22 Unknown Rx carvedilol 6.25 mg tablet 6.25 mg PO BID #180 tabs 06/05/22 09/15/22 Unknown Rx metolazone 2.5 mg tablet 2.5 mg PO .every other day #90 tabs 06/05/22 09/15/22 Unknown Rx spironolactone 25 mg tablet 25 mg PO DAILY #90 tabs 06/05/22 09/15/22 Unknown Rx warfarin 3 mg tablet 3 mg PO DIRECTED #90 tabs 06/05/22 09/15/22 Unknown Rx famotidine 20 mg tablet (Pepcid AC) 20 mg PO DAILY #90 tabs 08/23/22 09/15/22 Unknown Rx magnesium L-lactate 84 mg 250 mg PO BID 09/15/22 09/15/22 Unknown History tablet,extended release potassium chloride 20 mEq 40 meq PO BID 09/15/22 09/15/22 Unknown History tablet,extended release Allergies Allergy/AdvReac Type Severity Reaction Status Date / Time No Known Allergies Allergy Verified 08/23/22 12:47 PFSH Acute PFSH: Medical History (Updated 09/14/22 @ 17:09 by Drew Richardson MD) Abdominal distention Acute hyponatremia Carotid artery stenosis Carotid disease, bilateral Cellulitis Chest pain COPD (chronic obstructive pulmonary disease) Dyslipidemia Femoral artery occlusion Hypertension Lymphedema of both lower extremities PAD (peripheral artery disease) Peripheral edema Respiratory failure Smoker SOB (shortness of breath) TIA (transient ischemic attack) Uncontrolled hypertension Venous stasis dermatitis of right lower extremity Surgical History S/P peripheral artery angioplasty with stent placement S/P vascular surgery Status post carotid surgery (~2012) bilateral Family History Other CAD (coronary artery disease) Social History Smoking and tobacco status: former smoker Quit status (tobacco): considering quitting Second hand smoke exposure: Yes Alcohol intake: never Caregiver/support person: Yes Lives independently: Yes Household members: spouse Marital status: service: No Current occupational status: retired History of recent travel: No Current gender identity: Female Vitals/I&O/Wt Last Vital Signs Temp 98.4 F 09/14/22 13:02 Pulse 95 09/14/22 13:02 Resp 16 09/14/22 13:02 BP 146/71 09/14/22 13:02 Pulse Ox 95 09/14/22 13:02 O2 Del Method 09/14/22 13:02 Weight last 48 hrs Weight 92.986 kg Physical Exam Narrative: General: No acute distress, AO x3, NC oxygen supplementation, mild use of accessory muscles. As per patient this is her baseline. HEENT: PERRLA, pupils bilaterally equal and reactive Chest: Bronchial breath sounds b/l ,decreased air entry, equal good air entry bilaterally, no more fine basal crackles CVS: S1-S2 regular, no murmurs, no tachycardia, no gallops, no rubs Abdomen: Soft, nontender, no organomegaly, bowel sounds present, morbidly obese Neuro: No focal deficits, no facial deformity, AO x3, power 5/5 in all limbs Extremities: Bilateral extensive lymphedema, 2+ pitting edema present, bilateral up to mid calf warm to touch, tender, toes extremely tender, able to wiggle her toes, bilateral legs warm to touch. Pulses difficult to palpate given extensive lymphedema. No open wounds appreciated. Does have a small ulceration at dorsum of right foot, not draining. Legs foul-smelling Data 09/14/22 14:26 09/14/22 14:26 Micro: Microbiology 09/14/22 15:38 Blood Culture - Preliminary Blood SPECIMEN COLLECTED 09/14/22 15:15 Blood Culture - Preliminary Blood SPECIMEN COLLECTED A&P Assessment and plan (1) Cellulitis: CRP mildly elevated. Lower limb duplex could not be completed because of pain. Check ANITHA. Check CT scan to rule out abscess or bone involvement. Past culture history consistent with resistant Pseudomonas sensitive to Zosyn. Check MRSA swab, blood culture, procalcitonin, urinalysis, bacterial antigen. Extensive wound care. Lymphedema wrap. For now start on vancomycin and Zosyn. Qualifiers: Laterality: left Site of cellulitis: extremity Site of cellulitis of extremity: lower extremity Qualified Code(s): L03.116 - Cellulitis of left lower limb (2) Peripheral vascular disease: Continue with home dose of warfarin, aspirin, atorvastatin. Check INR daily. (3) CHF (congestive heart failure), NYHA class III: Last echocardiogram 12/06/2020 showed an EF of 55 to 60% with grade 1 diastolic dysfunction. Takes metolazone 2.5 every other day and Bumex 2 mg twice daily at home. IV Lasix 80 mg one-time followed by 60 mg twice daily. Strict input output charting. Monsalve catheterization. Fluid restriction up to 1500 cc. (4) COPD (chronic obstructive pulmonary disease): No active exacerbation. DuoNebs as needed. Oxygen supplementation keeping saturation over 88%. (5) Hypertension: Goal blood pressure less than 140/90 mmHg. Continue with home dose of Coreg. Will uptitrate as per blood pressure goals. Qualifiers: Hypertension type: essential hypertension Qualified Code(s): I10 - Essential (primary) hypertension (6) Lymphedema of both lower extremities: Lymphedema wrap. Physical therapy evaluation. (7) Carotid disease, bilateral: Plan Full code. Low salt diet. Warfarin will suffice for DVT prophylaxis Famotidine for PUD prophylaxis. Attestations Medical Necessity Statement*: Admission for more than 2 midnights for management of extensive bilateral lower limb cellulitis in setting of bilateral lymphedema and peripheral vascular disease Time Spent in Patient Care: Greater than 35 minutes Coding Level of Care Code Acute Code for [facility] Fwd Diagnoses Cellulitis L03.116 Laterality: left Site of cellulitis: extremity Site of cellulitis of extremity: lower extremity Peripheral vascular disease I73.9 CHF (congestive heart failure), NYHA class III I50.9 COPD (chronic obstructive pulmonary disease) J44.9 Hypertension I10 Hypertension type: essential hypertension Lymphedema of both lower extremities I89.0 Carotid disease, bilateral I77.9
--- NOTE | 2022-09-14 17:14 | USR_ITS ---
PROCEDURE INFORMATION: Exam: US Duplex Lower Extremity Arteries Exam date and time: 09/14/2022 6:33 PM Age: 72 years old Clinical indication: Pain; Leg, lower and foot; Bilateral; Prior surgery; Surgery date: 6+ months; Additional info: Pad TECHNIQUE: Imaging protocol: Real-time ultrasound scan of the arteries of the bilateral lower extremities with 2-D wilson scale, color Doppler flow and spectral waveform analysis. Images documented and saved. COMPARISON: US soft tissue/extremity [id number] 09/23/2020 12:14 PM FINDINGS: Right common femoral artery: No occlusion or significant stenosis. Monophasic flow. Right profunda femoris artery: The right profunda femoral artery is patent. Monophasic flow. Right superficial femoral artery: There is no flow seen in the right superficial femoral artery proximal, mid and distal portions. On image number 13 there appears to be a collateral vessel adjacent to the right superficial femoral artery midportion. Right popliteal artery: No occlusion or significant stenosis. Monophasic flow. Right calf/foot arteries: No occlusion or significant stenosis in the visualized arteries. Normal waveforms. Dorsalis pedis artery is patent. Left common femoral artery: Left fem-fem bypass graft anastomosis is patent. Left superficial femoral artery: Left fem-fem bypass graft anastomosis is patent. Left popliteal artery: No occlusion or significant stenosis. Monophasic waveform. Left calf/foot arteries: No occlusion or significant stenosis in the visualized arteries. Normal waveforms. Dorsalis pedis artery is patent. US/[place] [id number] IMPRESSION: 1. No flow is seen in the right superficial femoral artery suspicious for occlusion. Recommend catheter angiogram correlation and interventional radiology consultation. 2. Monophasic flow throughout the bilateral extremities suggesting inflow disease.
--- NOTE | 2022-09-14 17:26 | CTR_ITS ---
PROCEDURE INFORMATION: Exam: CT Left Lower Extremity Without Contrast, Foot Exam date and time: 09/14/2022 5:45 PM Age: 72 years old Clinical indication: Cellulitis and edema; No, it is generalized; Lower leg and toes; Left; Additional info: Possible abscess, cellulitis TECHNIQUE: Imaging protocol: CT of the Left lower extremity without contrast was performed. Exam focused on the foot. Radiation optimization: All CT scans at this facility use at least one of these dose optimization techniques: automated exposure control; mA and/or kV adjustment per patient size (includes targeted exams where dose is matched to clinical indication); or iterative reconstruction. Other protocol: This patient has received [address] and 0 known cardiac nuclear medicine studies in the 12 months prior to the current study. COMPARISON: No relevant prior. RADIATION DOSE METRICS: Total DLP (mGy-cm): 570 FINDINGS: Bones/joints: No acute osseous injury. Diffuse bony demineralization. Mild scattered degenerative changes of the foot and mild arthritis of the tibiotalar joint. Calcaneal enthesopathy. Small well corticated ossific fragment inferior to the medial malleolus is consistent with old trauma. Soft tissues: Diffuse subcutaneous soft tissue edema is seen with skin thickening suggesting cellulitis. No drainable fluid collection or abscess. Soft tissue ulceration is seen medially at the level of the tibiotalar joint for example on series 4, image 18. No soft tissue gas. CT/CT foot LT wo con* [id number] IMPRESSION: 1. Diffuse subcutaneous soft tissue edema with skin thickening suggesting cellulitis. Small region of skin ulceration is seen medially at the level of the tibiotalar joint. No drainable fluid collection or abscess. 2. No acute osseous injury.
--- NOTE | 2022-09-14 17:26 | CTR_ITS ---
PROCEDURE INFORMATION: Exam: CT Left Lower Extremity Without Contrast; Lower Leg Exam date and time: 09/14/2022 5:49 PM Age: 72 years old Clinical indication: Cellulitis and edema; No, it is generalized; Ankle and calf and foot; Left; Additional info: Possible abscess, cellulitis TECHNIQUE: Imaging protocol: CT of the Left lower extremity without contrast was performed. Exam focused on the lower leg. Radiation optimization: All CT scans at this facility use at least one of these dose optimization techniques: automated exposure control; mA and/or kV adjustment per patient size (includes targeted exams where dose is matched to clinical indication); or iterative reconstruction. Other protocol: This patient has received 2 known CTs and 0 known cardiac nuclear medicine studies in the 12 months prior to the current study. COMPARISON: CT foot LT wo con* [id number] 09/14/2022 5:45 PM RADIATION DOSE METRICS: Total DLP (mGy-cm): 595.11 FINDINGS: Bones/joints: Diffuse bony demineralization. Mild medial and patellofemoral compartment arthritis in the knee. Mild tibiotalar joint arthritis. No acute displaced fracture. Soft tissues: Diffuse subcutaneous soft tissue edema seen greatest medially about the knee and in the distal aspect of the left lower extremity with associated thickening of the skin. There is no drainable fluid collection or abscess present. No soft tissue gas. CT/CT lower leg LT wo con* [id number] IMPRESSION: 1. Diffuse subcutaneous soft tissue edema with skin thickening consistent with cellulitis. No drainable fluid collection or abscess. 2. No acute osseous injury.
--- NOTE | 2022-09-14 17:26 | CTR_ITS ---
PROCEDURE INFORMATION: Exam: CT Right Lower Extremity Without Contrast; Lower Leg Exam date and time: 09/14/2022 5:56 PM Age: 72 years old Clinical indication: Cellulitis and edema; No, it is generalized; Ankle and calf and foot and toes; Right; Additional info: Possible abscess, cellulitis TECHNIQUE: Imaging protocol: CT of the Right lower extremity without contrast was performed. Exam focused on the lower leg. Radiation optimization: All CT scans at this facility use at least one of these dose optimization techniques: automated exposure control; mA and/or kV adjustment per patient size (includes targeted exams where dose is matched to clinical indication); or iterative reconstruction. Other protocol: This patient has received 3 known CTs and 0 known cardiac nuclear medicine studies in the 12 months prior to the current study. COMPARISON: CT foot RT wo con* [id number] 09/14/2022 5:53 PM RADIATION DOSE METRICS: Total DLP (mGy-cm): 607.48 FINDINGS: Bones/joints: Diffuse bony demineralization. Moderate medial compartment arthritis of the knee with small-sized joint effusion. Soft tissues: Diffuse subcutaneous soft tissue edema with associated thickening of the skin. There is no drainable fluid collection or abscess present. No soft tissue gas. CT/CT lower leg RT wo con* [id number] IMPRESSION: 1. Diffuse subcutaneous soft tissue edema with skin thickening suggesting cellulitis. No drainable fluid collection or abscess. 2. No acute osseous injury.
--- NOTE | 2022-09-14 17:26 | CTR_ITS ---
PROCEDURE INFORMATION: Exam: CT Right Lower Extremity Without Contrast, Foot Exam date and time: 09/14/2022 5:53 PM Age: 72 years old Clinical indication: Cellulitis and edema; No, it is generalized; Ankle and calf and foot and toes; Right; Additional info: Possible abscess, cellulitis TECHNIQUE: Imaging protocol: CT of the Right lower extremity without contrast was performed. Exam focused on the foot. Radiation optimization: All CT scans at this facility use at least one of these dose optimization techniques: automated exposure control; mA and/or kV adjustment per patient size (includes targeted exams where dose is matched to clinical indication); or iterative reconstruction. Other protocol: This patient has received 3 known CTs and 0 known cardiac nuclear medicine studies in the 12 months prior to the current study. COMPARISON: US soft tissue/extremity [id number] 09/23/2020 12:14 PM RADIATION DOSE METRICS: Total DLP (mGy-cm): 118.92 FINDINGS: Bones/joints: No acute osseous injury. Diffuse bony demineralization. Mild scattered degenerative changes of the foot. Soft tissues: Diffuse subcutaneous soft tissue edema is seen with skin thickening suggesting cellulitis. No drainable fluid collection or abscess. CT/CT foot RT wo con* [id number] IMPRESSION: 1. Diffuse subcutaneous soft tissue edema with skin thickening suggesting cellulitis. No drainable fluid collection or abscess. 2. No acute osseous injury.
[2022-09-14 18:01] LABS: NT Pro B Type Natriuretic Pept 392 pg/mL (0-125); Procalcitonin 0.03 ng/mL (0-0.5); Thyroid Stimulating Hormone 2.29 uIU/mL (0.27-4.20); Vitamin B12 377 pg/mL (232-1245)
[2022-09-14 18:11] LABS: Iron 46 ug/dL (37-145); Percent Saturation 20.3 % (20-50); Total Iron Binding Capacity 226 mcg/dl; Unsaturated Iron Binding 180 ug/dL (112-347)
[2022-09-14 18:12] LABS: Folate Level 10.5 ng/mL (4.8-37.3)
[2022-09-14] MEDS: carvedilol 6.25 mg Tablet PO (19:21)
[2022-09-14] MEDS: ferrous gluconate 324 mg Tablet PO (19:21)
[2022-09-14] MEDS: metOLazone 5 MG Tablet 2.5 MG PO (19:21)
[2022-09-14] MEDS: piperacillin-tazobactam 3.375 GM in sodium chloride 0.9% (plus) 50 ML IV (19:22)
[2022-09-14 19:29] VITALS: PULSE 107; RESP 18; O2SAT 98
[2022-09-14] MEDS: FUROsemide 10 mg/mL SDV 10mL 80 MG IVP (19:31)
--- NOTE | 2022-09-14 19:31 | PC.NURSE ---
VITALS PRINTED AND PLACED IN CHART
[2022-09-14] MEDS: vancomycin 1,000 MG in sodium chloride 0.9% 250 ML 250 MG IV (19:33)
[2022-09-14 19:49] LABS: Add Urine Microscopic? NO; Charge for UA Resulting for Rev
[2022-09-14 19:54] LABS: Bilirubin Urine Neg (Negative); Blood Urine Neg (Negative); Glucose Urine UA Norm (Normal); Ketones Urine Negative (Negative); Leukocyte Esterase Urine Negative (Negative); Nitrate Urine Negative (Negative); Protein Urine Neg (Negative); Specific Gravity, Urine 1.005 (1.005-1.030); Urine Appearance Clear (CLEAR); Urine Color Colorless (Yellow); Urobilinogen Urine Neg (Negative); pH Urine 7 (5-7)
[2022-09-14 20:00] VITALS: BP 114/68; PULSE 94; RESP 19; TEMP 36.9; O2SAT 95
[2022-09-14 20:21] VITALS: BP 149/88; PULSE 111; O2SAT 94
[2022-09-14 20:52] VITALS: BMI 33.7
[2022-09-14 21:10] VITALS: PULSE 78; RESP 28; O2SAT 94
[2022-09-14] MEDS: docusate sodium 100 mg Capsule PO (21:19)
[2022-09-14] MEDS: HYDROcodone-acetaminophen 5-325 mg Tablet 1 TAB PO (21:19)
[2022-09-14] MEDS: famotidine 20 mg/2 mL INJ IVP (22:00)
[2022-09-15] VITALS (7 sets, daily range): BP systolic 105–132; BP diastolic 57–75; PULSE 75–98; RESP 16–26; TEMP 36.4–36.9; O2SAT 92–96; BMI 33.3
[2022-09-15] MEDS: piperacillin-tazobactam 3.375 GM in sodium chloride 0.9% (plus) 50 ML IV ×3 (02:16→17:40)
[2022-09-15] MEDS: acetaminophen 325 mg Tablet 650 MG PO (02:19)
--- NOTE | 2022-09-15 03:53 | PC.NURSE ---
Home med list updated according to medication list that patient carries with her. Patient verbalized confirmation on meds, dosages, and frequencies.
[2022-09-15 06:12] LABS: INR 2.21 (0.8-1.2)
[2022-09-15 06:16] LABS: Estmated Average Glucose 126
[2022-09-15 06:23] LABS: Chol HDL Ratio 2.89 mg/dL (0.0-4.40); Cholesterol 127 mg/dL (0-200); HDL Cholesterol 44 mg/dL (60-100); LDL Cholesterol Calculated 61 mg/dL (50-129); Magnesium 1.6 mg/dL (1.7-2.3); Phosphorus 3.9 mg/dL (2.5-4.5); Triglycerides 111 mg/dL (0-150); VLDL Cholestrol Calculation 22 mg/dL (0-30)
[2022-09-15] MEDS: heparin 5,000 unit/mL INJ 1 mL IV (06:45)
[2022-09-15] MEDS: heparin drip 25,000 UNIT/500 ML PREMIX 26 UNIT IV (06:46)
[2022-09-15 06:47] LABS: Platelet Count 196 10^3/cmm (130-400)
[2022-09-15 07:00] LABS: Partial Thromboplastin Time 39.4 SECONDS (23.9-36.7)
--- NOTE | 2022-09-15 07:47 | P.CONIM_ITS ---
Providers/Reason For Consult Consulting Physician/Specialty*: Itz Hale MD/Cardiology Reason for Consult*: Bilateral leg pain Requesting Physician: Dr Richardson Attending Physician: Drew Richardson MD Primary Care Provider: Gurwinder Lomeli DO History of Present Illness History of Present Illness Nimo Pressley is a 72 year old female history of peripheral artery disease, carotid artery disease, hypertension, PAD with left femoropopliteal bypass with lymphedema, who has chronic wounds on her legs and has not been following with wound care clinic. She came to the emergency room with bilateral leg pain for the last several weeks. More pain is in the toes. Legs are warm. Arterial Doppler that demonstrated occluded right SFA however collateral blood flow was supplying below the knee vessels. Plan for CTA today. Review of Systems General: Reports: 10 or more systems reviewed and unremarkable except in HPI and below Const: Denies: fever(s), chills, body aches, change in appetite, change in weight, malaise, night sweats, diaphoresis, change in sleep pattern, daytime sleepiness or snoring Eyes: Denies: change in vision, blurry vision, photophobia, eye discomfort or eye discharge ENMT: Denies: throat pain, enlarged tonsils, hoarseness, mouth pain, oral sores, dry mouth, tinnitus, nasal congestion or post nasal drip Card: Denies: chest pain, palpitations, irregular heart rhythm, edema, swelling of feet/ankles, lightheadedness, syncope, pre-syncope, dyspnea on exertion, orthopnea, leg pain with exertion or acrocyanosis Resp: Denies: dyspnea, productive cough, non-productive cough, wheezing, stridor, pain on inspiration, change in phlegm color, hemoptysis or chest congestion GI: Denies: abdominal pain, nausea, vomiting, hematemesis, coffee ground emesis, dysphagia, heartburn, diarrhea, constipation, bloating, GI cramping, change in bowel habits, pain on defecation, hematochezia or melena : Denies: flank pain, dysuria, urinary frequency, urinary urgency, urinary hesitancy, nocturia or hematuria Musc: Denies: neck pain, back pain, extremity pain, joint pain, joint swelling, joint redness, joint stiffness or limited range of motion Neuro: Denies: headache(s), numbness in extremities, weakness in extremities, sensory changes, lack of coordination, difficulty walking, frequent falls, dizziness, vertigo, confusion, Slurred speech present, difficulty communicating thoughts or seizure-like activity Psych: Denies: anxiety, depression, mood swings, panic attacks, hopelessness or irritability Endo: Denies: polyuria, polydipsia, tired all the time, cold intolerance, excessive sweating, flushing or heat intolerance Layo/Lymph: Denies: easy bruising or easy bleeding All/Imm: Denies: tongue swelling, facial swelling or acute wheezing Medications/Allergies Home Medications Medication Instructions Recorded Confirmed Last Taken Type albuterol sulfate 90 mcg/actuation 1 puff inhalation QID PRN 04/26/21 09/15/22 02/26/22 Rx aerosol inhaler shortness of breath or wheezing #8.5 grams hydrocodone 5 mg-acetaminophen 325 1 tab PO Q4H PRN pain 5 days #30 04/10/22 09/15/22 05/27/22 20:00 Rx mg tablet tabs aspirin 81 mg capsule 81 mg PO DAILY 05/28/22 09/15/22 05/23/22 History atorvastatin 80 mg tablet 80 mg PO DAILY #90 tabs 06/05/22 09/15/22 Unknown Rx bumetanide 2 mg tablet 2 mg PO BID #180 tabs 06/05/22 09/15/22 Unknown Rx carvedilol 6.25 mg tablet 6.25 mg PO BID #180 tabs 06/05/22 09/15/22 Unknown Rx metolazone 2.5 mg tablet 2.5 mg PO .every other day #90 tabs 06/05/22 09/15/22 Unknown Rx spironolactone 25 mg tablet 25 mg PO DAILY #90 tabs 06/05/22 09/15/22 Unknown Rx warfarin 3 mg tablet 3 mg PO DIRECTED #90 tabs 06/05/22 09/15/22 Unknown Rx famotidine 20 mg tablet (Pepcid AC) 20 mg PO DAILY #90 tabs 08/23/22 09/15/22 Unknown Rx magnesium L-lactate 84 mg 250 mg PO BID 09/15/22 09/15/22 Unknown History tablet,extended release potassium chloride 20 mEq 40 meq PO BID 09/15/22 09/15/22 Unknown History tablet,extended release Allergies Allergy/AdvReac Type Severity Reaction Status Date / Time No Known Allergies Allergy Verified 08/23/22 12:47 Current Medications Generic Name Dose Route Start Last Admin Trade Name Paulie PRN Reason Stop Dose Admin Acetaminophen 650 mg 09/14/22 18:10 09/15/22 02:19 Acetaminophen 325 Mg Tablet PO 650 mg Q6H PRN Administration Mild/Mod Pain Or Temp >/= 101 Hydrocodone Bitart/Acetaminophen 1 tab 09/14/22 18:10 09/14/22 21:19 Hydrocodone-Acetaminophen 5-325 Mg Tablet PO 1 tab Q6H PRN Administration MODERATE TO SEVERE PAIN Carvedilol 6.25 mg 09/14/22 18:00 09/14/22 19:21 Carvedilol 6.25 Mg Tablet PO 6.25 mg BID ETHAN Administration Docusate Sodium 100 mg 09/14/22 18:10 09/14/22 21:19 Docusate Sodium 100 Mg Capsule PO 100 mg BID ETHAN Administration Famotidine 20 mg 09/14/22 22:00 09/14/22 22:00 Famotidine 20 Mg/2 Ml Inj IVP 20 mg Q12H ETHAN Administration Ferrous Gluconate 324 mg 09/14/22 18:00 09/14/22 19:21 Ferrous Gluconate 324 Mg Tablet PO 324 mg BIDWM ETHAN Administration Heparin Sodium (Porcine) 0 unit 09/15/22 06:25 09/15/22 06:45 Heparin 5,000 Unit/Ml Inj 1 Ml IV 4,600 unit PRN PRN Administration Heparin weight-base protocol Protocol Piperacillin Sod/Tazobactam 50 mls @ 12.5 mls/hr 09/14/22 18:00 09/15/22 05:40 Sod 3.375 gm/ Sodium Chloride IV 0 mls/hr Q8H ETHAN Infusion Protocol As Directed Heparin Sodium/Sodium Chloride 25,000 unit in 500 mls @ 0 mls/hr 09/15/22 06:30 09/15/22 06:46 Heparin Drip IV 14.33 unit/kg/hr .Q0M ETHAN 26 mls/hr Administration Protocol Per Protocol Metolazone 2.5 mg 09/14/22 17:02 09/14/22 19:21 Metolazone 5 Mg Tablet PO 2.5 mg EVERY OTHER DAY ETHAN Administration PFSH Acute PFSH: Medical History Abdominal distention Acute hyponatremia Carotid artery stenosis Carotid disease, bilateral Cellulitis Chest pain COPD (chronic obstructive pulmonary disease) Dyslipidemia Femoral artery occlusion Hypertension Lymphedema of both lower extremities PAD (peripheral artery disease) Peripheral edema Respiratory failure Smoker SOB (shortness of breath) TIA (transient ischemic attack) Uncontrolled hypertension Venous stasis dermatitis of right lower extremity Surgical History S/P peripheral artery angioplasty with stent placement S/P vascular surgery Status post carotid surgery (~2012) bilateral Family History Other CAD (coronary artery disease) Social History Smoking and tobacco status: former smoker Quit status (tobacco): considering quitting Second hand smoke exposure: Yes Alcohol intake: never Caregiver/support person: Yes Lives independently: Yes Household members: spouse Marital status: service: No Current occupational status: retired History of recent travel: No Current gender identity: Female Vitals/I&O/Wt Last Vital Signs Temp 97.6 F 09/15/22 04:00 Pulse 83 09/15/22 04:00 Resp 21 H 09/15/22 04:00 BP 109/66 09/15/22 04:00 Pulse Ox 94 09/14/22 21:10 O2 Del Method 09/15/22 04:00 O2 Flow Rate 3 09/15/22 04:00 09/14/22 09/15/22 09/15/22 22:59 06:59 14:59 Intake Total 480 / 480 582.5 / 1062.5 Output Total 2375 / 2375 Balance 480 / 480 -1792.5 / -1312.5 Weight last 48 hrs Weight 200 lb 1 oz Weight 202 lb 7 oz Weight 205 lb Physical Exam Narrative: GENERAL: Patient is alert, awake and oriented x3. [] NECK: No jugular vein distension. [] HEENT: No cyanosis. No icterus. No pallor. [] HEART: Regular S1 and S2. No murmur, rub or gallop. [] LUNGS: Clear to auscultate bilaterally. [] ABDOMEN: Soft, nontender and nondistended. Positive bowel sounds. No guarding, rebound or tenderness. [] CENTRAL NERVOUS SYSTEM: Grossly nonfocal. [] EXTREMITIES: Bilateral legs have lymphedema. Feet are tender to touch. Right l eg has a lateral wound that appears to be healing Urinary Catheter Management: Monsalve: Cath Placed During This Visit: yes Reason for Continuing Indwelling Catheter: Other Urinary Catheter Date of Insertion: 09/14/22 Data 09/15/22 06:39 09/14/22 14:26 Micro: Microbiology 09/14/22 15:38 Blood Culture - Preliminary Blood SPECIMEN COLLECTED 09/14/22 15:15 Blood Culture - Preliminary Blood SPECIMEN COLLECTED A&P Assessment and plan (1) Lymphedema of both lower extremities: (2) Peripheral vascular disease: (3) Cellulitis: Qualifiers: Site of cellulitis: extremity Site of cellulitis of extremity: lower extremity Laterality: left Qualified Code(s): L03.116 - Cellulitis of left lower limb (4) Dyslipidemia: (5) Hypertension: Qualifiers: Hypertension type: essential hypertension Qualified Code(s): I10 - Essential (primary) hypertension (6) Peripheral edema: (7) COPD (chronic obstructive pulmonary disease): Plan Patient has a history of extensive peripheral artery disease. Had bypass surgery on the left lower extremity. Has bilateral leg pain. Feet are tender to touch. Likely component of neuropathy is there. Doppler ultrasound demo nstrates occluded SFA with reconstitution of vessels below. ANITHA could not be performed because of lymphedema and pain. We will obtain CTA to better assess vascular anatomy of the lower extremities. Coumadin held. Continue heparin gtt for now. Her pain is atypical and does not appear to be secondary to critical limb ischemia. Thank you for involving us with care of this patient. We will continue to follow. Please call with questions. Consult Attestations Medical Necessity Statement: Care expected to cross 2 midnights. Coding Level of Care Code Acute Code for [facility] Diagnoses Lymphedema of both lower extremities I89.0 Peripheral vascular disease I73.9 Cellulitis L03.116 Site of cellulitis: extremity Site of cellulitis of extremity: lower extremity Laterality: left Dyslipidemia E78.5 Hypertension I10 Hypertension type: essential hypertension Peripheral edema R60.9 COPD (chronic obstructive pulmonary disease) J44.9
[2022-09-15] MEDS: carvedilol 6.25 mg Tablet PO ×2 (09:34→17:39)
[2022-09-15] MEDS: aspirin 81 mg EC Tablet PO (09:34)
[2022-09-15] MEDS: docusate sodium 100 mg Capsule PO ×2 (09:34→17:39)
[2022-09-15] MEDS: ferrous gluconate 324 mg Tablet PO ×2 (09:34→17:39)
[2022-09-15] MEDS: atorvastatin 40 mg Tablet 80 MG PO (09:35)
[2022-09-15] MEDS: vancomycin 1,000 MG in sodium chloride 0.9% 250 ML 250 MG IV ×2 (09:36→20:57)
[2022-09-15] MEDS: FUROsemide 10 mg/mL SDV 10mL 60 MG IVP ×2 (09:38→20:57)
[2022-09-15] MEDS: albuterol 2.5 mg/3 mL Neb INHALATION (10:03)
[2022-09-15 10:06] LABS: Basophils # 0.1 10^3/uL (0.0-0.1); Basophils % 0.7 %; Eosinophils # 0.4 10^3/uL (0.0-0.8); Eosinophils % 2.8 %; Hematocrit 33.5 % (37.0-47.0); Hemoglobin 10.4 g/dL (11.5-15.3); Lymphocytes # 0.7 10^3/uL (0.8-4.8); Mean Corpuscular Hemoglobin 28.9 pg (28.0-34.0); Mean Corpuscular Volume 93.1 fl (81-99); Mean Platelet Volume 11.1 fL (7.4-10.4); Monocytes # 0.9 10^3/uL (0.2-0.9); Monocytes % 7.1 %; Neutrophils # 11.19 10^3/uL (1.8-7.7); Neutrophils % 83.9 %; Nucleated Red Blood Cells % 0 %; Platelet Count 204 10^3/cmm (130-400); Red Cell Distribution Width 15.1 % (12.1-15.1); White Blood Count 13.3 10^3/uL (4.0-10.0)
[2022-09-15 10:50] LABS: Alanine Aminotransferase 12 U/L (0-33); Albumin Level 3.2 g/dL (3.5-5.2); Alkaline Phosphatase 125 U/L (35-105); Anion Gap 11.1 (5-19); Aspartate Amino Transferase 17 U/L (0-32); Blood Urea Nitrogen 16 mg/dL (8-23); Calcium 8.7 mg/dL (8.5-10.5); Carbon Dioxide 33 mmol/L (22-29); Chloride 95 mmol/L (98-107); Globulin 3.6 g/dL (1.3-4.6); Glucose 142 mg/dL (65-115); Osmolality Calculated 284 mOsm/kg (285-295); Potassium 4.1 mmol/L (3.5-5.1); Sodium 135 mmol/L (136-145); Total Bilirubin 0.8 mg/dL (0.15-1.2); Total Protein 6.8 g/dL (6.6-8.7)
[2022-09-15] MEDS: HYDROcodone-acetaminophen 5-325 mg Tablet 1 TAB PO ×2 (10:57→22:39)
[2022-09-15] MEDS: famotidine 20 mg/2 mL INJ IVP ×2 (10:57→22:59)
--- NOTE | 2022-09-15 11:31 | CTR_ITS ---
PROCEDURE INFORMATION: Exam: CTA Abdominal Aorta and Bilateral Lower Extremities (Run-off) With Contrast Exam date and time: 09/15/2022 1:05 PM Age: 72 years old Clinical indication: Foot pain; Bilateral; Prior surgery; Additional info: Pad, femoral bypass, right sfa occlusion TECHNIQUE: Imaging protocol: Computed tomographic angiography of the of the abdominal aorta, pelvis and bilateral lower extremities with contrast. 3D rendering (Not supervised by radiologist): MIP and/or 3D reconstructed images were created by the technologist. Radiation optimization: All CT scans at this facility use at least one of these dose optimization techniques: automated exposure control; mA and/or kV adjustment per patient size (includes targeted exams where dose is matched to clinical indication); or iterative reconstruction. Contrast material: OMNI 350; Contrast volume: 100 ml; Contrast route: INTRAVENOUS (IV); Other protocol: This patient has received 4 known CTs and 0 known cardiac nuclear medicine studies in the 12 months prior to the current study. COMPARISON: CT angio abd aorta runof [id number] 01/19/2020 8:41 AM RADIATION DOSE METRICS: Total DLP (mGy-cm): 785.14 FINDINGS: Aorta: No aortic aneurysm. No aortic dissection. Celiac trunk and mesenteric arteries: Celiac artery eccentric atherosclerotic calcification proximally with 60-70% luminal narrowing. Superior mesenteric artery eccentric atherosclerotic calcification with 70-80% luminal narrowing suspected. Renal arteries: Bilateral atherosclerotic calcification at the ostia of the renal arteries with suspected 60-70% luminal narrowing, right greater than left. Right iliac arteries: No occlusion or significant stenosis. Right femoral/popliteal arteries: Right superficial femoral artery appears largely occluded with reconstitution distally with contrast seen in the distal superficial femoral artery, popliteal artery and arteries of the right calf. Right infrapopliteal arteries: No occlusion or significant stenosis. Left iliac arteries: Left internal iliac artery appears occluded. Left femoral/popliteal arteries: Left superficial femoral artery bypass graft is seen which appears patent. [place] left superficial femoral artery appears occluded. Left infrapopliteal arteries: No occlusion or significant stenosis. Other arteries: Scattered atherosclerotic calcifications throughout the lower extremity arterial system. Lungs: Emphysematous changes. Bibasilar atelectasis versus infiltrate. Coronary arteries: Coronary artery atherosclerotic calcifications. Liver: Hepatic steatosis. Gallbladder and bile ducts: Unremarkable. No calcified stones. No ductal dilation. Pancreas: Unremarkable. No mass. No ductal dilation. Spleen: Normal. No splenomegaly. Adrenal glands: Normal. No mass. Kidneys and ureters: Several bilateral renal cysts, negative for follow-up advised. Stomach and bowel: Constipation. Appendix: No evidence of appendicitis. Urinary bladder: Monsalve catheter in the urinary bladder with air presumed iatrogenic. Reproductive: Unremarkable as visualized. Intraperitoneal space: Unremarkable. No free air. No significant fluid collection. Lymph nodes: Prominent inguinal lymph nodes bilaterally measuring up to 11 mm on the right. Bones/joints: Multilevel vertebroplasty changes in the spine. Fifth reason of initial without bowel IIA left lower rough segment nodes thickened Soft tissues: Subcutaneous edema throughout the lower extremities bilaterally, nonspecific. CT/CT angio abd aorta runof [id number] IMPRESSION: 1. Right superficial femoral artery appears largely occluded with reconstitution distally with contrast seen in the distal superficial femoral artery, popliteal artery and arteries of the right calf. 2. Left superficial femoral artery bypass graft is seen which appears patent. [place] left superficial femoral artery appears occluded. 3. Subcutaneous edema throughout the lower extremities bilaterally, nonspecific. 4. Celiac artery eccentric atherosclerotic calcification proximally with 60-70% luminal narrowing. 5. Superior mesenteric artery eccentric atherosclerotic calcification with 70-80% luminal narrowing suspected. 6. Bilateral atherosclerotic calcification at the ostia of the renal arteries with suspected 60-70% luminal narrowing, right greater than left. 7. Emphysematous changes. 8. Bibasilar atelectasis versus infiltrate. 9. Coronary artery atherosclerotic calcifications. 10. Hepatic steatosis. 11. Several bilateral renal cysts, negative for follow-up advised. 12. Constipation. 13. Scattered atherosclerotic calcifications throughout the lower extremity arterial system. 14. Left internal iliac artery appears occluded. 15. Prominent inguinal lymph nodes bilaterally measuring up to 11 mm on the right, nonspecific. 16. Monsalve catheter in the urinary bladder with air presumed iatrogenic.
[2022-09-15] MEDS: iohexol 350 mg/mL 500 mL Btl (per mL) IV (13:13)
--- NOTE | 2022-09-15 13:42 | PM.PN ---
Subjective Subjective: No acute events overnight. Patient states he is feeling slightly better. Continues to complain of extensive tenderness and pain to touch on her toes. Documented urine output of around 4.5 L since admission. Seems to be better. Less tachypneic on talking. Saturating well on 3 L. Vitals/I&O/Wt Last Vital Signs Temp 98.4 F 09/15/22 12:00 Pulse 98 09/15/22 12:00 Resp 20 H 09/15/22 12:00 BP 112/69 09/15/22 12:00 Pulse Ox 96 09/15/22 12:00 O2 Del Method 09/15/22 12:00 O2 Flow Rate 3 09/15/22 12:00 09/14/22 09/15/22 09/15/22 22:59 06:59 14:59 Intake Total 480 / 480 590.0 / 1070.0 1090 / 1090 Output Total 2375 / 2375 2300 / 2300 Balance 480 / 480 -1785.0 / -1305.0 -1210 / -1210 Weight last 48 hrs Weight 90.747 kg Weight 91.824 kg Weight 92.986 kg Physical Exam Narrative: General: No acute distress, AO x3, NC oxygen supplementation, mild use of accessory muscles. As per patient this is her baseline. HEENT: PERRLA, pupils bilaterally equal and reactive Chest: Bronchial breath sounds b/l ,decreased air entry, equal good air entry bilaterally, no more fine basal crackles CVS: S1-S2 regular, no murmurs, no tachycardia, no gallops, no rubs Abdomen: Soft, nontender, no organomegaly, bowel sounds present, morbidly obese Neuro: No focal deficits, no facial deformity, AO x3, power 5/5 in all limbs Extremities: Bilateral extensive lymphedema, 2+ pitting edema present, bilateral up to mid calf warm to touch, tender, toes extremely tender, able to wiggle her toes, bilateral legs warm to touch. Pulses difficult to palpate given extensive lymphedema. No open wounds appreciated. Does have a small ulceration at dorsum of right foot, not draining. Legs foul-smelling Urinary Catheter Management: Monsalve: Cath Placed During This Visit: yes Reason for Continuing Indwelling Catheter: Other Urinary Catheter Date of Insertion: 09/14/22 Data 09/15/22 09:54 09/15/22 09:54 Micro: Microbiology 09/14/22 19:46 Bacterial Antigens - Final Urine Kidney 09/14/22 15:38 Blood Culture - Preliminary Blood SPECIMEN COLLECTED 09/14/22 15:15 Blood Culture - Preliminary Blood SPECIMEN COLLECTED A&P Assessment and plan (1) Cellulitis: CRP mildly elevated. Lower limb duplex could not be completed because of pain. ANITHA results appreciated. Concern for right SFA occlusion. CT bilateral leg and foot appreciated for cellulitis without any abscess collection. Past culture history consistent with resistant Pseudomonas sensitive to Zosyn. MRSA pending. Pro-Talon appreciated. Bacterial antigen negative. Extensive wound care. Lymphedema wrap. Continue with vancomycin and Zosyn. If MRSA negative will discontinue vancomycin Qualifiers: Site of cellulitis: extremity Site of cellulitis of extremity: lower extremity Laterality: left Qualified Code(s): L03.116 - Cellulitis of left lower limb (2) Superficial femoral artery occlusion: As seen on ANITHA. Check CTA aorta runoff. Monitor for renal function. Switch from warfarin to heparin drip. Cardiology consult for possible need of revascularization. (3) Peripheral vascular disease: Continue with home dose of aspirin, atorvastatin. Warfarin withheld as patient (4) CHF (congestive heart failure), NYHA class III: Last echocardiogram 12/06/2020 showed an EF of 55 to 60% with grade 1 diastolic dysfunction. Takes metolazone 2.5 every other day and Bumex 2 mg twice daily at home. Continue with Lasix 60 mg twice daily. Strict input output charting. Monsalve catheterization. Fluid restriction up to 1500 cc. (5) COPD (chronic obstructive pulmonary disease): No active exacerbation. DuoNebs as needed. Oxygen supplementation keeping saturation over 88%. (6) Hypertension: Goal blood pressure less than 140/90 mmHg. Continue with home dose of Coreg. Will uptitrate as per blood pressure goals. Qualifiers: Hypertension type: essential hypertension Qualified Code(s): I10 - Essential (primary) hypertension (7) Lymphedema of both lower extremities: Lymphedema wrap. Physical therapy evaluation. (8) Carotid disease, bilateral: Plan Full code. Low salt diet. Warfarin will suffice for DVT prophylaxis Famotidine for PUD prophylaxis. Attestations Medical Necessity Statement*: Requires further hospitalization for management of bilateral lower limb cellulitis extending up to mid calf, lymphedema, right SFA occlusion Coding Level of Care Code Acute Code for Chg Fwd Diagnoses Cellulitis L03.116 Site of cellulitis: extremity Site of cellulitis of extremity: lower extremity Laterality: left Superficial femoral artery occlusion I70.209 Peripheral vascular disease I73.9 CHF (congestive heart failure), NYHA class III I50.9 COPD (chronic obstructive pulmonary disease) J44.9 Hypertension I10 Hypertension type: essential hypertension Lymphedema of both lower extremities I89.0 Carotid disease, bilateral I77.9
[2022-09-15 14:10] LABS: Partial Thromboplastin Time 172.4 SECONDS (23.9-36.7)
[2022-09-15 21:26] LABS: Partial Thromboplastin Time 43.1 SECONDS (23.9-36.7)
--- NOTE | 2022-09-15 21:57 | PC.NURSE ---
Dr Chacon notified concerning PTT drip of 43.1. Original drip had started at 26ml/hr, but previously discontinued due to high PTT. Dr Chacon asked if she wanted to continue and bolus on heparin drip, and this nurse was instructed to discontinue drip. Drip has been discontinued at this time.
--- NOTE | 2022-09-15 23:03 | PC.NURSE ---
Pt refusing to wear tubigrips placed by PT stating I'm in so much pain. I don't care what PT says. This is the worst care I've ever received at this hopital. Tubigrips removed per pt request and refusal to have them remain on at this time. Pt educated on why tubigrips were ordered. Pain medication administered.
[2022-09-16] VITALS (11 sets, daily range): BP systolic 116–128; BP diastolic 64–84; PULSE 78–94; RESP 17–21; TEMP 36.4–37.2; O2SAT 2–99; BMI 32.8
[2022-09-16] MEDS: piperacillin-tazobactam 3.375 GM in sodium chloride 0.9% (plus) 50 ML IV ×3 (03:23→22:00)
[2022-09-16 05:37] LABS: Basophils # 0.1 10^3/uL (0.0-0.1); Eosinophils # 0.7 10^3/uL (0.0-0.8); Eosinophils % 5.7 %; Hematocrit 32.2 % (37.0-47.0); Hemoglobin 10.2 g/dL (11.5-15.3); Lymphocytes # 1.2 10^3/uL (0.8-4.8); Mean Corpuscular HGB Conc 31.7 g/dL (30.0-36.0); Mean Corpuscular Hemoglobin 28.9 pg (28.0-34.0); Mean Corpuscular Volume 91.2 fl (81-99); Mean Platelet Volume 10.7 fL (7.4-10.4); Monocytes # 1.1 10^3/uL (0.2-0.9); Monocytes % 9.7 %; Neutrophils # 8.53 10^3/uL (1.8-7.7); Neutrophils % 73.1 %; Nucleated Red Blood Cells % 0 %; Platelet Count 188 10^3/cmm (130-400); Red Blood Count 3.53 10^6/uL (4.1-5.3); White Blood Count 11.7 10^3/uL (4.0-10.0)
[2022-09-16 05:52] LABS: INR 1.68 (0.8-1.2)
[2022-09-16 06:13] LABS: Alanine Aminotransferase 11 U/L (0-33); Albumin Level 3.1 g/dL (3.5-5.2); Alkaline Phosphatase 120 U/L (35-105); Anion Gap 11.3 (5-19); Aspartate Amino Transferase 15 U/L (0-32); Blood Urea Nitrogen 20 mg/dL (8-23); Calcium 8.6 mg/dL (8.5-10.5); Carbon Dioxide 36 mmol/L (22-29); Chloride 91 mmol/L (98-107); Globulin 3.8 g/dL (1.3-4.6); Glucose 92 mg/dL (65-115); Osmolality Calculated 282 mOsm/kg (285-295); Potassium 3.3 mmol/L (3.5-5.1); Sodium 135 mmol/L (136-145); Total Bilirubin 0.8 mg/dL (0.15-1.2); Total Protein 6.9 g/dL (6.6-8.7)
[2022-09-16] MEDS: ferrous gluconate 324 mg Tablet PO ×2 (09:36→17:37)
[2022-09-16] MEDS: aspirin 81 mg EC Tablet PO (09:41)
[2022-09-16] MEDS: atorvastatin 40 mg Tablet 80 MG PO (09:41)
[2022-09-16] MEDS: metOLazone 5 MG Tablet 2.5 MG PO (09:41)
[2022-09-16] MEDS: famotidine 20 mg/2 mL INJ IVP ×2 (09:42→22:42)
[2022-09-16] MEDS: FUROsemide 10 mg/mL SDV 10mL 60 MG IVP ×2 (09:43→22:01)
[2022-09-16] MEDS: vancomycin 1,000 MG in sodium chloride 0.9% 250 ML 250 MG IV (09:43)
[2022-09-16] MEDS: docusate sodium 100 mg Capsule PO ×2 (09:50→17:37)
[2022-09-16] MEDS: magnesium hydroxide 30 mL UDC PO (09:50)
[2022-09-16] MEDS: carvedilol 6.25 mg Tablet PO ×2 (10:50→17:37)
[2022-09-16] MEDS: potassium chloride ER 20 mEq Tablet 40 MEQ PO ×2 (12:32→17:37)
--- NOTE | 2022-09-16 15:55 | PM.PN ---
Subjective Subjective: No acute events overnight. Patient denies any nausea, vomiting, headache. Has remained hemodynamically stable and afebrile. Documented urine output of from 3 L in last 24 hours. Overall 4 L negative. Heparin drip stopped yesterday. Vitals/I&O/Wt Last Vital Signs Temp 97.9 F 09/16/22 12:00 Pulse 87 09/16/22 12:00 Resp 18 09/16/22 12:00 BP 116/66 09/16/22 12:00 Pulse Ox 93 09/16/22 12:00 O2 Del Method 09/16/22 12:00 O2 Flow Rate 3 09/16/22 08:45 09/16/22 09/16/22 09/16/22 06:59 14:59 22:59 Intake Total 250 / 1641.067 940 / 940 Output Total 1900 / 5300 Balance -1650 / -3658.933 940 / 940 Weight last 48 hrs Weight 89.414 kg Weight 90.747 kg Weight 91.824 kg Physical Exam Narrative: General: No acute distress, AO x3, NC oxygen supplementation, no further respiratory distress. HEENT: PERRLA, pupils bilaterally equal and reactive Chest: Bronchial breath sounds b/l ,decreased air entry, equal good air entry bilaterally, no more fine basal crackles CVS: S1-S2 regular, no murmurs, no tachycardia, no gallops, no rubs Abdomen: Soft, nontender, no organomegaly, bowel sounds present, morbidly obese Neuro: No focal deficits, no facial deformity, AO x3, power 5/5 in all limbs Extremities: Bilateral extensive lymphedema, 2+ pitting edema present, bilateral up to mid calf warm to touch, tender, toes extremely tender, able to wiggle her toes, bilateral legs warm to touch. Pulses difficult to palpate given extensive lymphedema. No open wounds appreciated. Does have a small ulceration at dorsum of right foot, not draining. Legs foul-smelling Urinary Catheter Management: Monsalve: Cath Placed During This Visit: yes Reason for Continuing Indwelling Catheter: Other Urinary Catheter Date of Insertion: 09/14/22 Data 09/16/22 05:14 09/16/22 05:14 Micro: Microbiology 09/14/22 15:38 Blood Culture - Preliminary Blood NEGATIVE TO DATE 09/14/22 15:15 Blood Culture - Preliminary Blood NEGATIVE TO DATE 09/14/22 21:34 MRSA Culture - Final Nose 09/14/22 19:46 Bacterial Antigens - Final Urine Kidney A&P Assessment and plan (1) Cellulitis: CRP mildly elevated. Lower limb duplex could not be completed because of pain. ANITHA results appreciated. Concern for right SFA occlusion. CT bilateral leg and foot appreciated for cellulitis without any abscess collection. Past culture history consistent with resistant Pseudomonas sensitive to Zosyn. MRSA negative. Pro-Talon appreciated. Bacterial antigen negative. Extensive wound care. Lymphedema wrap. Continue with vancomycin and Zosyn. For now we will continue vancomycin. If continues to improve clinically can stop vancomycin within next 24 to 48 hours. Qualifiers: Site of cellulitis: extremity Site of cellulitis of extremity: lower extremity Laterality: left Qualified Code(s): L03.116 - Cellulitis of left lower limb (2) Superficial femoral artery occlusion: As seen on ANITHA. Appreciate CT results. Consistent with multiple collaterals. Appreciate cardiology recommendations. We will plan for outpatient follow-up. Will discuss further with radiology regarding origin and more localization of the old graft. Stop heparin drip. Restart home dose of Coumadin with goal INR of 2-3. (3) Peripheral vascular disease: Continue with home dose of aspirin, atorvastatin. (4) CHF (congestive heart failure), NYHA class III: Last echocardiogram 12/06/2020 showed an EF of 55 to 60% with grade 1 diastolic dysfunction. Takes metolazone 2.5 every other day and Bumex 2 mg twice daily at home. Continue with Lasix 60 mg twice daily. Strict input output charting. Monsalve catheterization. Fluid restriction up to 1500 cc. Restart home dose of potassium 40 mEq twice daily. (5) COPD (chronic obstructive pulmonary disease): No active exacerbation. DuoNebs as needed. Oxygen supplementation keeping saturation over 88%. (6) Hypertension: Goal blood pressure less than 140/90 mmHg. Continue with home dose of Coreg. Will uptitrate as per blood pressure goals. Qualifiers: Hypertension type: essential hypertension Qualified Code(s): I10 - Essential (primary) hypertension (7) Lymphedema of both lower extremities: Lymphedema wrap. Physical therapy evaluation. (8) Carotid disease, bilateral: Plan Full code. Low salt diet. Warfarin will suffice for DVT prophylaxis Famotidine for PUD prophylaxis. Replace potassium. Attestations Medical Necessity Statement*: Requires further hospitalization for management of bilateral lower limb cellulitis in setting of chronic lymphedema, peripheral arterial disease Time Spent in Patient Care: Greater than 35 minutes Coding Level of Care Code Acute Code for Chg Fwd Diagnoses Cellulitis L03.116 Site of cellulitis: extremity Site of cellulitis of extremity: lower extremity Laterality: left Superficial femoral artery occlusion I70.209 Peripheral vascular disease I73.9 CHF (congestive heart failure), NYHA class III I50.9 COPD (chronic obstructive pulmonary disease) J44.9 Hypertension I10 Hypertension type: essential hypertension Lymphedema of both lower extremities I89.0 Carotid disease, bilateral I77.9
[2022-09-16] MEDS: warfarin 3 mg Tablet PO (17:36)
[2022-09-16 20:13] LABS: Vancomycin Trough 25.4 ug/mL (10-15)
[2022-09-17] VITALS (7 sets, daily range): BP systolic 100–123; BP diastolic 58–72; PULSE 80–92; RESP 16–20; TEMP 36.3–36.9; O2SAT 90–97
--- NOTE | 2022-09-17 00:39 | PC.PHAR ---
Pharmacokinetic dosing service Date: 09/17/22 Time: 0039 Patient: Floor: Weight: 89.414 Kilograms Vancomycin single level analysis: Current dose being given: mg Current dosing interval: hrs Current infusion time (hrs): 1 Single level Trough Data: Trough level obtained: 25.4 mcg/ml Timing of trough - # of hrs before next dose: .75 Hrs Desired peak: 40 mcg/ml Desired trough: 15 mcg/ml Diagnosis: Relevant medical/social history: Cultures and sensitivities: Other labs: Estimated PK Parameters: New rate constant (kerry): 0.035 hr-1 Half-life: 19.80 Hours Vd from levels: 80.47 Liters (0.7 L/kg) CLvanco=?? 2.816 L/hr Estimated New Dose and Interval Recommended dose: 2088.4 mg Recommended interval: 29.0 Hrs Patient response: Patient is responding to treatment [yes/no] wbc decreasing, S/SX reduced [yes/no] Renal function is stable/unstable Recommendations: Give Vancomycin 1250 mg q 24 hrs. Infuse over 1 hrs Expected Cpeak: 26.9 mcg/mL Expected Ctrough: 12.0 mcg/mL AUC 0-24 /CARTER Data: CARTER 0.5 mcg/mL:?? AUC/CARTER:? 887.8 CARTER 1.0 mcg/mL:?? AUC/CARTER:? 443.9 Recommended labs and intervals: Measure Bun and Scr 3 times/week. Renal dosing of other antibiotics (review renal dosing of other medications and list guidelines here): Thank you for the consult, will continue to follow. Millie Rogel [facility]
[2022-09-17] MEDS: HYDROcodone-acetaminophen 5-325 mg Tablet 1 TAB PO ×3 (00:47→17:04)
[2022-09-17 01:53] LABS: Basophils # 0.1 10^3/uL (0.0-0.1); Basophils % 0.7 %; Eosinophils # 0.6 10^3/uL (0.0-0.8); Eosinophils % 4.5 %; Hematocrit 32.1 % (37.0-47.0); Hemoglobin 10.1 g/dL (11.5-15.3); Lymphocytes # 1.3 10^3/uL (0.8-4.8); Lymphocytes % 9.8 %; Mean Corpuscular HGB Conc 31.5 g/dL (30.0-36.0); Mean Corpuscular Hemoglobin 29.2 pg (28.0-34.0); Mean Corpuscular Volume 92.8 fl (81-99); Mean Platelet Volume 10.5 fL (7.4-10.4); Monocytes # 1.2 10^3/uL (0.2-0.9); Neutrophils # 9.84 10^3/uL (1.8-7.7); Neutrophils % 75.6 %; Nucleated Red Blood Cells % 0 %; Platelet Count 203 10^3/cmm (130-400); Red Blood Count 3.46 10^6/uL (4.1-5.3); Red Cell Distribution Width 14.9 % (12.1-15.1)
[2022-09-17 02:05] LABS: INR 1.45 (0.8-1.2)
[2022-09-17 02:17] LABS: Alanine Aminotransferase 9 U/L (0-33); Albumin Level 3.2 g/dL (3.5-5.2); Alkaline Phosphatase 107 U/L (35-105); Anion Gap 14.6 (5-19); Aspartate Amino Transferase 17 U/L (0-32); Blood Urea Nitrogen 18 mg/dL (8-23); Calcium 8.7 mg/dL (8.5-10.5); Carbon Dioxide 33 mmol/L (22-29); Chloride 92 mmol/L (98-107); Globulin 3.5 g/dL (1.3-4.6); Glucose 128 mg/dL (65-115); Osmolality Calculated 286 mOsm/kg (285-295); Potassium 3.6 mmol/L (3.5-5.1); Sodium 136 mmol/L (136-145); Total Bilirubin 0.6 mg/dL (0.15-1.2); Total Protein 6.7 g/dL (6.6-8.7)
[2022-09-17] MEDS: piperacillin-tazobactam 3.375 GM in sodium chloride 0.9% (plus) 50 ML IV ×3 (04:48→20:47)
[2022-09-17] MEDS: ferrous gluconate 324 mg Tablet PO ×2 (08:58→17:41)
[2022-09-17] MEDS: docusate sodium 100 mg Capsule PO ×2 (08:58→17:41)
[2022-09-17] MEDS: atorvastatin 40 mg Tablet 80 MG PO (08:58)
[2022-09-17] MEDS: vancomycin 1,250 MG/250 ML PIGGYBACK 250 MG IV (08:58)
[2022-09-17] MEDS: FUROsemide 10 mg/mL SDV 10mL 60 MG IVP ×2 (08:59→20:37)
[2022-09-17] MEDS: aspirin 81 mg EC Tablet PO (08:59)
[2022-09-17] MEDS: potassium chloride ER 20 mEq Tablet 40 MEQ PO ×2 (08:59→17:41)
[2022-09-17] MEDS: carvedilol 6.25 mg Tablet PO ×2 (08:59→17:41)
--- NOTE | 2022-09-17 09:02 | P.PN_ITS ---
Subjective Subjective: (Please consider this documentation for 09/16/2022, patient was seen and examined, documentation missed.). Patient has no resting leg pain. Toes are tender on both feet, more on the left. Vitals/I&O/Wt Last Vital Signs Temp 97.3 F L 09/17/22 07:55 Pulse 80 09/17/22 07:55 Resp 16 09/17/22 07:55 BP 117/64 09/17/22 07:55 Pulse Ox 97 09/17/22 07:55 O2 Del Method 09/17/22 07:55 O2 Flow Rate 2 09/17/22 03:43 09/16/22 09/17/22 09/17/22 22:59 06:59 14:59 Intake Total 890 / 1830 530 / 2360 Output Total 2074 / 2074 1050 / 3125 Balance -1185 / -245 -520 / -765 Weight last 48 hrs Weight 193 lb 11.2 oz Weight 197 lb 2 oz Physical Exam Narrative: GENERAL: Patient is alert, awake and oriented x3. [] NECK: No jugular vein distension. [] HEENT: No cyanosis. No icterus. No pallor. [] HEART: Regular S1 and S2. No murmur, rub or gallop. [] LUNGS: Clear to auscultate bilaterally. [] ABDOMEN: Soft, nontender and nondistended. Positive bowel sounds. No guarding, rebound or tenderness. [] CENTRAL NERVOUS SYSTEM: Grossly nonfocal. [] EXTREMITIES: Bilateral legs have lymphedema. Feet are tender to touch. Right leg has a lateral wound that appears to be healing Urinary Catheter Management: Monsalve: Cath Placed During This Visit: yes Reason for Continuing Indwelling Catheter: Other Urinary Catheter Date of Insertion: 09/14/22 Data 09/17/22 01:33 09/17/22 01:33 A&P Assessment and plan (1) Lymphedema of both lower extremities: (2) Peripheral vascular disease: (3) Cellulitis: Qualifiers: Laterality: left Site of cellulitis: extremity Site of cellulitis of extremity: lower extremity Qualified Code(s): L03.116 - Cellulitis of left lower limb (4) Dyslipidemia: (5) Hypertension: Qualifiers: Hypertension type: essential hypertension Qualified Code(s): I10 - Essential (primary) hypertension (6) Peripheral edema: (7) COPD (chronic obstructive pulmonary disease): Plan Patient underwent CTA abdominal aorta with runoff. She has right SFA occlusion however has collateral blood flow to distal SFA and below the knee. Left-sided SFA bypass graft is patent. Legs are warm. ANITHA could not be done secondary to lymphedema. Her toe discomfort has a component of neuropathy. She says that it is worse on left side today and only when something touches it. Given complex history of PAD, she will benefit from vascular surgery evaluation, that can be done as outpatient. Continue anticoagulation Thank you for involving us with care of this patient. We will continue to follow. Please call with questions. Attestations Medical Necessity Statement*: Care expected to cross 2 midnights Coding Level of Care Code Acute Code for [facility] Fwd Diagnoses Lymphedema of both lower extremities I89.0 Peripheral vascular disease I73.9 Cellulitis L03.116 Laterality: left Site of cellulitis: extremity Site of cellulitis of extremity: lower extremity Dyslipidemia E78.5 Hypertension I10 Hypertension type: essential hypertension Peripheral edema R60.9 COPD (chronic obstructive pulmonary disease) J44.9
--- NOTE | 2022-09-17 09:38 | P.PN_ITS ---
Subjective Subjective: Patient is stable. No resting leg pain Vitals/I&O/Wt Last Vital Signs Temp 97.3 F L 09/17/22 07:55 Pulse 86 09/17/22 08:00 Resp 16 09/17/22 08:00 BP 117/64 09/17/22 07:55 Pulse Ox 94 09/17/22 08:00 O2 Del Method 09/17/22 08:00 O2 Flow Rate 2 09/17/22 08:00 09/16/22 09/17/22 09/17/22 22:59 06:59 14:59 Intake Total 890 / 1830 530 / 2360 50 / 50 Output Total 2074 / 5 1050 / 3125 Balance -1185 / -245 -520 / -765 50 / 50 Weight last 48 hrs Weight 193 lb 11.2 oz Weight 197 lb 2 oz Physical Exam Narrative: GENERAL: Patient is alert, awake and oriented x3. [] NECK: No jugular vein distension. [] HEENT: No cyanosis. No icterus. No pallor. [] HEART: Regular S1 and S2. No murmur, rub or gallop. [] LUNGS: Clear to auscultate bilaterally. [] ABDOMEN: Soft, nontender and nondistended. Positive bowel sounds. No guarding, rebound or tenderness. [] CENTRAL NERVOUS SYSTEM: Grossly nonfocal. [] EXTREMITIES: Bilateral legs have lymphedema. Feet are tender to touch. Right leg has a lateral wound that appears to be healing Urinary Catheter Management: Monsalve: Cath Placed During This Visit: yes Reason for Continuing Indwelling Catheter: Other Urinary Catheter Date of Insertion: 09/14/22 Data 09/17/22 01:33 09/17/22 01:33 A&P Assessment and plan (1) Lymphedema of both lower extremities: (2) Peripheral vascular disease: (3) Cellulitis: Qualifiers: Site of cellulitis: extremity Site of cellulitis of extremity: lower extremity Laterality: left Qualified Code(s): L03.116 - Cellulitis of left lower limb (4) Dyslipidemia: (5) Hypertension: Qualifiers: Hypertension type: essential hypertension Qualified Code(s): I10 - Essential (primary) hypertension (6) Peripheral edema: (7) COPD (chronic obstructive pulmonary disease): Plan Continue anticoagulation. Outpatient vascular surgery evaluation. Thank you for involving us with care of this patient. Please call with q uestions. Attestations Medical Necessity Statement*: Care expected to cross 2 midnights. Coding Level of Care Code Acute Code for [facility] Fwd Diagnoses Lymphedema of both lower extremities I89.0 Peripheral vascular disease I73.9 Cellulitis L03.116 Site of cellulitis: extremity Site of cellulitis of extremity: lower extremity Laterality: left Dyslipidemia E78.5 Hypertension I10 Hypertension type: essential hypertension Peripheral edema R60.9 COPD (chronic obstructive pulmonary disease) J44.9
[2022-09-17] MEDS: famotidine 20 mg/2 mL INJ IVP (10:58)
--- NOTE | 2022-09-17 13:39 | PC.SOCIAL ---
Pg 2 IMM. Explained to pt Pg 2 IMM. No questions voiced. Provided pt a copy. Initialed, dated, & timed a copy & placed in chart.
[2022-09-17] MEDS: warfarin 3 mg Tablet PO (17:04)
--- NOTE | 2022-09-17 18:12 | P.PN_ITS ---
Subjective Subjective: Patient was seen and examined this morning overall she is doing better. Medications: Medication Review Details: Generic Name Dose Route Start Last Admin Trade Name Freq PRN Reason Stop Dose Admin Acetaminophen 650 mg 09/14/22 18:10 09/15/22 02:19 Acetaminophen 32 5 Mg Tablet PO 650 mg Q6H PRN Administration Mild/Mod Pain Or Temp >/= 101 Hydrocodone Bitart /Acetaminophen 1 tab 09/14/22 18:10 09/17/22 17:04 Hydrocodone-Acet aminophen 5-325 Mg Tablet PO 1 tab Q6H PRN Administration MODERATE TO SEVER E PAIN Albuterol Sulfate 2.5 mg 09/16/22 08:07 09/17/22 10:56 Albuterol 2.5 Mg /0.5 Ml Neb INHALATION 2.5 mg Q6H.RESP PRN Administration SHORTNESS OF DANA TH Aspirin 81 mg 09/15/22 09:00 09/17/22 08:59 Aspirin 81 Mg Ec Tablet PO 81 mg DAILY ETHAN Administration Atorvastatin Calci um 80 mg 09/15/22 09:00 09/17/22 08:58 Atorvastatin 40 Mg Tablet PO 80 mg DAILY ETHAN Administration Carvedilol 6.25 mg 09/14/22 18:00 09/17/22 17:41 Carvedilol 6.25 Mg Tablet PO 6.25 mg BID ETHAN Administration Docusate Sodium 100 mg 09/14/22 18:10 09/17/22 17:41 Docusate Sodium 100 Mg Capsule PO 100 mg BID ETHAN Administration Famotidine 20 mg 09/14/22 22:00 09/17/22 10:58 Famotidine 20 Mg /2 Ml Inj IVP 20 mg Q12H ETHAN Administration Ferrous Gluconate 324 mg 09/14/22 18:00 09/17/22 17:41 Ferrous Gluconat e 324 Mg Tablet PO 324 mg BIDWM ETHAN Administration Furosemide 60 mg 09/15/22 08:00 09/17/22 08:59 Furosemide 10 Mg /Ml Sdv 10ml IVP 60 mg Q12H ETHAN Administration Piperacillin Sod/T azobactam 50 mls @ 12.5 mls /hr 09/14/22 18:00 09/17/22 17:44 Sod 3.375 gm/ So dium Chloride IV Infused Q8H ETHAN Infusion Protocol As Directed Vancomycin/PEG/NAD A/Lysine/Water 1,250 mg in 250 m ls @ 250 mls/hr 09/17/22 08:00 09/17/22 11:58 Vancocin IV Infused Q24H ETHAN Infusion Magnesium Hydroxid e 30 ml 09/14/22 18:10 09/16/22 09:50 Magnesium Hydrox jack 30 Ml Udc PO 30 ml DAILY PRN Administration Constipation (see protocol) Protocol Metolazone 2.5 mg 09/14/22 17:02 09/16/22 09:41 Metolazone 5 Mg Tablet PO 2.5 mg EVERY OTHER DAY S CH Administration Potassium Chloride 40 meq 09/16/22 10:10 09/17/22 17:41 Potassium Chlori de Er 20 Meq Table t PO 40 meq BID ETHAN Administration Warfarin Sodium 3 mg 09/16/22 17:00 09/17/22 17:04 Warfarin 3 Mg Ta blet PO 3 mg DAILY@1700 ETHAN Administration Vitals/I&O/Wt Last Vital Signs Temp 97.8 F 09/17/22 16:00 Pulse 88 09/17/22 16:00 Resp 18 09/17/22 16:00 BP 100/58 09/17/22 16:00 Pulse Ox 93 09/17/22 16:00 O2 Del Method 09/17/22 16:00 O2 Flow Rate 2 09/17/22 11:01 09/17/22 09/17/22 09/17/22 06:59 14:59 22:59 Intake Total 530 / 2360 900 / 900 290 / 1190 Output Total 1050 / 3125 Balance -520 / -765 900 / 900 290 / 1190 Weight last 48 hrs Weight 87.861 kg Weight 89.414 kg Physical Exam Const: COMMON NORMALS: patient oriented x3 HENMT: COMMON NORMALS: normocephalic and atraumatic HEAD & SCALP: normocephalic and atraumatic Resp: COMMON NORMALS: clear to auscultation bilaterally EFFORT & INSPECTION: Yes symmetric chest movement AUSCULTATION: clear to auscultation bilaterally Cardio: COMMON NORMALS: regular rate, regular rhythm, S1 normal heart sound present, S2 normal heart sound present, No gallops present (Cardio), No murmurs present (Cardio), No rub (Cardio) and Peripheral pulses 2+ throughout RATE: regular rate RHYTHM: regular rhythm HEART SOUNDS: S1 normal heart sound present and S2 normal heart sound present PERIPHERAL PULSES: Peripheral pulses 2+ throughout GI: COMMON NORMALS: Normal to inspection, nondistended, normoactive bowel sounds present, Soft to palpation, non-tender, No hepatosplenomegaly present and no masses AUSCULTATION: Yes normoactive bowel sounds PALPATION: Yes Soft to palpation and Yes No hepatosplenomegaly present RECTAL EXAM: deferred Extremity: COMMON NORMALS: no clubbing, cyanosis or edema and no pedal edema NARRATIVE EXTREMITY EXAM: Bilateral extensive lymphedema with redness, 2+ bilateral pitting edema, warm to touch sensations intact. Neuro: COMMON NORMALS: patient oriented x3 Urinary Catheter Management: Monsalve: Cath Placed During This Visit: yes Reason for Continuing Indwelling Catheter: Other Urinary Catheter Date of Insertion: 09/14/22 Data 09/17/22 01:33 09/17/22 01:33 A&P Assessment and plan (1) Cellulitis: CRP mildly elevated. Lower limb duplex could not be completed because of pain. ANITHA results appreciated. Concern for right SFA occlusion. CT bilateral leg and foot appreciated for cellulitis without any abscess collection. Past culture history consistent with resistant Pseudomonas sensitive to Zosyn. MRSA negative. Pro-Talon appreciated. Bacterial antigen negative. Extensive wound care. Lymphedema wrap. Continue with vancomycin and Zosyn. For now we will continue vancomycin. If continues to improve clinically can stop vancomycin within next 24 to 48 hours. Qualifiers: Site of cellulitis: extremity Site of cellulitis of extremity: lower extremity Laterality: left Qualified Code(s): L03.116 - Cellulitis of left lower limb (2) Superficial femoral artery occlusion: As seen on ANITHA. Appreciate CT results. Consistent with multiple collaterals. Appreciate cardiology recommendations. We will plan for outpatient follow-up. Will discuss further with radiology regarding origin and more localization of the old graft. Stop heparin drip. Restart home dose of Coumadin with goal INR of 2-3. (3) Peripheral vascular disease: Continue with home dose of aspirin, atorvastatin. (4) CHF (congestive heart failure), NYHA class III: Last echocardiogram 12/06/2020 showed an EF of 55 to 60% with grade 1 diastolic dysfunction. Takes metolazone 2.5 every other day and Bumex 2 mg twice daily at home. Continue with Lasix 60 mg twice daily. Strict input output charting. Monsalve catheterization. Fluid restriction up to 1500 cc. Restart home dose of potassium 40 mEq twice daily. (5) COPD (chronic obstructive pulmonary disease): No active exacerbation. DuoNebs as needed. Oxygen supplementation keeping saturation over 88%. (6) Hypertension: Goal blood pressure less than 140/90 mmHg. Continue with home dose of Coreg. Will uptitrate as per blood pressure goals. Qualifiers: Hypertension type: essential hypertension Qualified Code(s): I10 - Essential (primary) hypertension (7) Lymphedema of both lower extremities: Lymphedema wrap. Physical therapy evaluation. (8) Carotid disease, bilateral: Plan Full code. Low salt diet. Warfarin will suffice for DVT prophylaxis Famotidine for PUD prophylaxis. Replace potassium. Attestations Medical Necessity Statement*: Is in hospital for management of cellulitis Coding Level of Care Code Acute Code for [facility] Fwd Diagnoses Cellulitis L03.116 Site of cellulitis: extremity Site of cellulitis of extremity: lower extremity Laterality: left Superficial femoral artery occlusion I70.209 Peripheral vascular disease I73.9 CHF (congestive heart failure), NYHA class III I50.9 COPD (chronic obstructive pulmonary disease) J44.9 Hypertension I10 Hypertension type: essential hypertension Lymphedema of both lower extremities I89.0 Carotid disease, bilateral I77.9
[2022-09-18] VITALS (10 sets, daily range): BP systolic 100–123; BP diastolic 60–69; PULSE 75–89; RESP 15–18; TEMP 36.4–36.8; O2SAT 92–98
[2022-09-18] MEDS: famotidine 20 mg/2 mL INJ IVP ×3 (00:32→22:51)
[2022-09-18] MEDS: piperacillin-tazobactam 3.375 GM in sodium chloride 0.9% (plus) 50 ML IV ×3 (04:34→20:03)
[2022-09-18] MEDS: HYDROcodone-acetaminophen 5-325 mg Tablet 1 TAB PO ×3 (04:34→21:42)
[2022-09-18 05:25] LABS: Basophils # 0.1 10^3/uL (0.0-0.1); Basophils % 0.7 %; Eosinophils # 0.7 10^3/uL (0.0-0.8); Eosinophils % 5.5 %; Hematocrit 32.9 % (37.0-47.0); Hemoglobin 9.9 g/dL (11.5-15.3); Lymphocytes # 1.1 10^3/uL (0.8-4.8); Lymphocytes % 9.4 %; Mean Corpuscular HGB Conc 30.1 g/dL (30.0-36.0); Mean Corpuscular Hemoglobin 28.2 pg (28.0-34.0); Mean Corpuscular Volume 93.7 fl (81-99); Mean Platelet Volume 10.9 fL (7.4-10.4); Monocytes # 1.2 10^3/uL (0.2-0.9); Monocytes % 9.7 %; Neutrophils # 8.93 10^3/uL (1.8-7.7); Neutrophils % 74.3 %; Nucleated Red Blood Cells % 0 %; Platelet Count 177 10^3/cmm (130-400); Red Blood Count 3.51 10^6/uL (4.1-5.3)
[2022-09-18 05:39] LABS: INR 1.44 (0.8-1.2)
[2022-09-18 05:44] LABS: Alanine Aminotransferase 9 U/L (0-33); Albumin Level 3.2 g/dL (3.5-5.2); Alkaline Phosphatase 101 U/L (35-105); Blood Urea Nitrogen 21 mg/dL (8-23); Calcium 8.5 mg/dL (8.5-10.5); Carbon Dioxide 32 mmol/L (22-29); Chloride 91 mmol/L (98-107); Globulin 3.6 g/dL (1.3-4.6); Glucose 91 mg/dL (65-115); Osmolality Calculated 281 mOsm/kg (285-295); Sodium 134 mmol/L (136-145); Total Bilirubin 0.5 mg/dL (0.15-1.2); Total Protein 6.8 g/dL (6.6-8.7)
[2022-09-18 05:47] LABS: Anion Gap 15.1 (5-19); Aspartate Amino Transferase 16 U/L (0-32); Potassium 4.1 mmol/L (3.5-5.1)
[2022-09-18] MEDS: atorvastatin 40 mg Tablet 80 MG PO (09:12)
[2022-09-18] MEDS: ferrous gluconate 324 mg Tablet PO ×2 (09:12→17:20)
[2022-09-18] MEDS: docusate sodium 100 mg Capsule PO ×2 (09:13→17:20)
[2022-09-18] MEDS: potassium chloride ER 20 mEq Tablet 40 MEQ PO ×2 (09:13→17:21)
[2022-09-18] MEDS: carvedilol 6.25 mg Tablet PO ×2 (09:13→17:21)
[2022-09-18] MEDS: aspirin 81 mg EC Tablet PO (09:14)
[2022-09-18] MEDS: vancomycin 1,250 MG/250 ML PIGGYBACK 250 MG IV (09:14)
[2022-09-18] MEDS: FUROsemide 10 mg/mL SDV 10mL 60 MG IVP (09:22)
[2022-09-18] MEDS: metOLazone 5 MG Tablet 2.5 MG PO (09:24)
[2022-09-18] MEDS: warfarin 10 mg Tablet PO (16:39)
--- NOTE | 2022-09-18 18:08 | P.PN_ITS ---
Subjective Subjective: Patient was seen and examined this morning overall she is doing better. Continue to have good urine output Serum creatinine is slowly trending up, serum sodium has also gone down, chloride is also decreasing. White blood cell count is going down. H&H is so far stable.Will hold on today's dose of evening Lasix, will place her on Lasix 40 IV twice daily starting tomorrow. She will receive warfarin 10 mg one-time dose today as INR is 1.44, continue to monitor PT/INR. Medications: Medication Review Details: Generic Name Dose Route Start Last Admin Trade Name Freq PRN Reason Stop Dose Admin Acetaminophen 650 mg 09/14/22 18:10 09/15/22 02:19 Acetaminophen 32 5 Mg Tablet PO 650 mg Q6H PRN Administration Mild/Mod Pain Or Temp >/= 101 Hydrocodone Bitart /Acetaminophen 1 tab 09/14/22 18:10 09/18/22 11:22 Hydrocodone-Acet aminophen 5-325 Mg Tablet PO 1 tab Q6H PRN Administration MODERATE TO SEVER E PAIN Albuterol Sulfate 2.5 mg 09/16/22 08:07 09/18/22 08:33 Albuterol 2.5 Mg /0.5 Ml Neb INHALATION 2.5 mg Q6H.RESP PRN Administration SHORTNESS OF DANA TH Aspirin 81 mg 09/15/22 09:00 09/18/22 09:14 Aspirin 81 Mg Ec Tablet PO 81 mg DAILY ETHAN Administration Atorvastatin Calci um 80 mg 09/15/22 09:00 09/18/22 09:12 Atorvastatin 40 Mg Tablet PO 80 mg DAILY ETHAN Administration Carvedilol 6.25 mg 09/14/22 18:00 09/18/22 17:21 Carvedilol 6.25 Mg Tablet PO 6.25 mg BID ETHAN Administration Docusate Sodium 100 mg 09/14/22 18:10 09/18/22 17:20 Docusate Sodium 100 Mg Capsule PO 100 mg BID ETHAN Administration Famotidine 20 mg 09/14/22 22:00 09/18/22 09:14 Famotidine 20 Mg /2 Ml Inj IVP 20 mg Q12H ETHAN Administration Ferrous Gluconate 324 mg 09/14/22 18:00 09/18/22 17:20 Ferrous Gluconat e 324 Mg Tablet PO 324 mg BIDWM ETHAN Administration Piperacillin Sod/T azobactam 50 mls @ 12.5 mls /hr 09/14/22 18:00 09/18/22 13:27 Sod 3.375 gm/ So dium Chloride IV 12.5 mls/hr Q8H ETHAN Administration Protocol As Directed Vancomycin/PEG/NAD A/Lysine/Water 1,250 mg in 250 m ls @ 250 mls/hr 09/17/22 08:00 09/18/22 10:28 Vancocin IV Infused Q24H ETHAN Infusion Magnesium Hydroxid e 30 ml 09/14/22 18:10 09/16/22 09:50 Magnesium Hydrox jack 30 Ml Udc PO 30 ml DAILY PRN Administration Constipation (see protocol) Protocol Metolazone 2.5 mg 09/14/22 17:02 09/18/22 09:24 Metolazone 5 Mg Tablet PO 2.5 mg EVERY OTHER DAY S CH Administration Potassium Chloride 40 meq 09/16/22 10:10 09/18/22 17:21 Potassium Chlori de Er 20 Meq Table t PO 40 meq BID ETHAN Administration Vitals/I&O/Wt Last Vital Signs Temp 98.3 F 09/18/22 15:56 Pulse 75 09/18/22 15:56 Resp 16 09/18/22 15:56 BP 118/65 09/18/22 15:56 Pulse Ox 95 09/18/22 15:56 O2 Del Method 09/18/22 15:56 O2 Flow Rate 2 09/18/22 11:04 09/18/22 09/18/22 09/18/22 06:59 14:59 22:59 Intake Total 50 / 1360 780 / 780 Output Total 1100 / 1100 700 / 700 Balance -1050 / 260 80 / 80 Weight last 48 hrs Weight 86.364 kg Weight 87.861 kg Physical Exam Const: COMMON NORMALS: patient oriented x3 HENMT: COMMON NORMALS: normocephalic and atraumatic HEAD & SCALP: normocephalic and atraumatic Resp: COMMON NORMALS: clear to auscultation bilaterally EFFORT & INSPEC TION: Yes symmetric chest movement AUSCULTATION: clear to auscultation bilaterally Cardio: COMMON NORMALS: regular rate, regular rhythm, S1 normal heart sound present, S2 normal heart sound present, No gallops present (Cardio), No murmurs present (Cardio), No rub (Cardio) and Peripheral pulses 2+ throughout RATE: regular rate RHYTHM: regular rhythm HEART SOUNDS: S1 normal heart sound present and S2 normal heart sound present PERIPHERAL PULSES: Peripheral pulses 2+ throughout GI: COMMON NORMALS: Normal to inspection, nondistended, normoactive bowel sounds present, Soft to palpation, non-tender, No hepatosplenomegaly present and no masses AUSCULTATION: Yes normoactive bowel sounds PALPATION: Yes Soft to palpation and Yes No hepatosplenomegaly present RECTAL EXAM: deferred Extremity: COMMON NORMALS: no clubbing, cyanosis or edema and no pedal edema NARRATIVE EXTREMITY EXAM: Bilateral extensive lymphedema with redness, 2+ bilateral pitting edema, warm to touch Neuro: COMMON NORMALS: patient oriented x3 Urinary Catheter Management: Monsalve: Cath Placed During This Visit: yes Reason for Continuing Indwelling Catheter: Other Urinary Catheter Date of Insertion: 09/14/22 Data 09/18/22 05:02 09/18/22 05:02 A&P Assessment and plan (1) Cellulitis: CRP mildly elevated. Lower limb duplex could not be completed because of pain. ANITHA results appreciated. Concern for right SFA occlusion. CT bilateral leg and foot appreciated for cellulitis without any abscess collection. Past culture history consistent with resistant Pseudomonas sensitive to Zosyn. MRSA negative. Pro-Talon appreciated. Bacterial antigen negative. Extensive wound care. Lymphedema wrap. Continue with vancomycin and Zosyn. For now we will continue vancomycin. If continues to improve clinically can stop vancomycin within next 24 to 48 hours. Qualifiers: Site of cellulitis: extremity Site of cellulitis of extremity: lower extremity Laterality: left Qualified Code(s): L03.116 - Cellulitis of left lower limb (2) Superficial femoral artery occlusion: As seen on ANITHA. Appreciate CT results. Consistent with multiple collaterals. Appreciate cardiology recommendations. We will plan for outpatient follow-up. Will discuss further with radiology regarding origin and more localization of the old graft. Stop heparin drip. Restart home dose of Coumadin with goal INR of 2-3. (3) Peripheral vascular disease: Continue with home dose of aspirin, atorvastatin. (4) CHF (congestive heart failure), NYHA class III: Last echocardiogram 12/06/2020 showed an EF of 55 to 60% with grade 1 diastolic dysfunction. Takes metolazone 2.5 every other day and Bumex 2 mg twice daily at home. Continue with Lasix 60 mg twice daily. Strict input output charting. Monsalve catheterization. Fluid restriction up to 1500 cc. Restart home dose of potassium 40 mEq twice daily. (5) COPD (chronic obstructive pulmonary disease): No active exacerbation. DuoNebs as needed. Oxygen supplementation keeping saturation over 88%. (6) Hypertension: Goal blood pressure less than 140/90 mmHg. Continue with home dose of Coreg. Will uptitrate as per blood pressure goals. Qualifiers: Hypertension type: essential hypertension Qualified Code(s): I10 - Essential (primary) hypertension (7) Lymphedema of both lower extremities: Lymphedema wrap. Physical therapy evaluation. (8) Carotid disease, bilateral: Plan Full code. Low salt diet. Warfarin will suffice for DVT prophylaxis Famotidine for PUD prophylaxis. Replace potassium. Attestations Medical Necessity Statement*: Needs to be in hospital for IV antibiotics. Coding Level of Care Code Acute Code for [facility] Fwd Diagnoses Cellulitis L03.116 Site of cellulitis: extremity Site of cellulitis of extremity: lower extremity Laterality: left Superficial femoral artery occlusion I70.209 Peripheral vascular disease I73.9 CHF (congestive heart failure), NYHA class III I50.9 COPD (chronic obstructive pulmonary disease) J44.9 Hypertension I10 Hypertension type: essential hypertension Lymphedema of both lower extremities I89.0 Carotid disease, bilateral I77.9
--- NOTE | 2022-09-18 18:20 | PC.NURSE ---
SHift Summary: uneventful shift. Patient has been up to the chair for most of the day. frequently up to the bathroom. Seems to ambulate more easily than this morning. Has been reporting pain leg pain less frequently in the afternoon and night compared to this morning.
[2022-09-19] VITALS: BP 130/63; PULSE 78; RESP 17; TEMP 36.9; O2SAT 95
[2022-09-19 03:21] VITALS: BP 133/65; PULSE 82; RESP 15; TEMP 36.7; O2SAT 95
[2022-09-19] MEDS: piperacillin-tazobactam 3.375 GM in sodium chloride 0.9% (plus) 50 ML IV (04:52)
[2022-09-19] MEDS: FUROsemide 10 mg/mL SDV 4mL 40 MG IVP (06:08)
[2022-09-19] MEDS: HYDROcodone-acetaminophen 5-325 mg Tablet 1 TAB PO (06:10)
[2022-09-19 06:53] LABS: Basophils # 0.1 10^3/uL (0.0-0.1); Basophils % 0.7 %; Eosinophils # 0.7 10^3/uL (0.0-0.8); Eosinophils % 5.7 %; Hematocrit 33.1 % (37.0-47.0); Hemoglobin 10.3 g/dL (11.5-15.3); Lymphocytes # 1.1 10^3/uL (0.8-4.8); Lymphocytes % 8.7 %; Mean Corpuscular HGB Conc 31.1 g/dL (30.0-36.0); Mean Corpuscular Hemoglobin 28.5 pg (28.0-34.0); Mean Corpuscular Volume 91.7 fl (81-99); Mean Platelet Volume 10.4 fL (7.4-10.4); Monocytes # 1.1 10^3/uL (0.2-0.9); Monocytes % 8.8 %; Neutrophils # 9.21 10^3/uL (1.8-7.7); Neutrophils % 75.5 %; Nucleated Red Blood Cells % 0 %; Platelet Count 209 10^3/cmm (130-400); Red Blood Count 3.61 10^6/uL (4.1-5.3); Red Cell Distribution Width 14.9 % (12.1-15.1); White Blood Count 12.2 10^3/uL (4.0-10.0)
[2022-09-19 07:07] LABS: Anion Gap 12.7 (5-19); Blood Urea Nitrogen 21 mg/dL (8-23); Carbon Dioxide 33 mmol/L (22-29); Chloride 94 mmol/L (98-107); Glucose 94 mg/dL (65-115); Osmolality Calculated 285 mOsm/kg (285-295); Potassium 3.7 mmol/L (3.5-5.1); Sodium 136 mmol/L (136-145)
[2022-09-19 07:16] LABS: INR 1.43 (0.8-1.2)
[2022-09-19 08:00] VITALS: BP 121/59; PULSE 80; RESP 18; TEMP 36.5; O2SAT 93
[2022-09-19 08:37] VITALS: PULSE 80; RESP 18; O2SAT 93
[2022-09-19] MEDS: atorvastatin 40 mg Tablet 80 MG PO (09:00)
[2022-09-19] MEDS: vancomycin 1,250 MG/250 ML PIGGYBACK 250 MG IV (09:00)
[2022-09-19] MEDS: docusate sodium 100 mg Capsule PO (09:00)
[2022-09-19] MEDS: carvedilol 6.25 mg Tablet PO (09:00)
[2022-09-19] MEDS: ferrous gluconate 324 mg Tablet PO (09:00)
[2022-09-19] MEDS: aspirin 81 mg EC Tablet PO (09:00)
[2022-09-19] MEDS: potassium chloride ER 20 mEq Tablet 40 MEQ PO (09:00)
--- NOTE | 2022-09-19 09:24 | P.DS_ITS ---
Discharge Providers Date of Admission: 09/14/22 17:14 Date of Discharge: September 19, 2022 Attending Provider at Admission: Drew Richardson MD Attending Provider at Discharge: Harinder Nowak MD Primary Care Provider: Gurwinder Lomeli DO Diagnoses at Discharge Discharge Diagnosis (1) Lymphedema of both lower extremities: Status: Acute (2) Peripheral vascular disease: Status: Acute (3) Cellulitis: Status: Acute (4) Dyslipidemia: Status: Acute (5) Hypertension: Status: Acute (6) Peripheral edema: Status: Acute (7) COPD (chronic obstructive pulmonary disease): Status: Acute Reason for Visit Reason for Visit: wounds on legs not healing Hospital Course Hospital Course HPI: Dr: Drew Richardson MD Nimo Pressley is a 72 year old female with past medical history of hypertension, bilateral carotid artery stenosis post carotid enterectomy in 2012, PAD post left femoropopliteal bypass complicated by femoral artery stenosis needing stent placement, chronic bilateral lower extremity edema, active smoker, recent history of laminectomy who followed up with wound care clinic as an outpatient for chronic wounds in her legs presents to the ER today from home with at bedside for worsening of wounds on the leg. As per the patient used to follow-up with wound care clinic but has not followed for last few months.? He takes care of wound at home by himself.? He does do lymphedema wraps and cleaning of the wound with normal saline and alcohol as he started having more pain in the legs more so in the process for last few weeks he decided to come to the ER today.? Currently patient is complaining of extreme pain in all her toes she is able to wiggle her toes.? Denies any open wound or seepage. Complains of mild shortness of breath on minimal exertion.? States has been this baseline for a long time.? Takes Coumadin daily at home. Hospital course: Patient was admitted for the management of cellulitis: CT scan bilateral leg was suggestive of cellulitis, Lower extremity duplex could not be completed due to pain, ANITHA:Was concerning for right SFA occlusion. CT angio abd aorta runof?: Right superficial femoral artery appears largely occluded with reconstitution distally with contrast seen in the distal superficial femoral artery, popliteal artery and arteries of the right calf. Left superficial femoral artery bypass graft is seen which appears patent. [place] left superficial femoral artery appears occluded.Subcutaneous edema throughout the lower extremities bilaterally,nonspecific.Celiac artery eccentric atherosclerotic calcification proximally with 60-70% luminal narrowing.Superior mesenteric artery eccentric atherosclerotic calcification with 70-80% luminal narrowing suspected.?Left internal iliac artery appears occluded. Initially during the hospital stay she was kept on heparin drip which was later stopped, she was continued on oral warfarin, for history of peripheral vascular disease.Cardiology was on board No intervention was suggested at this point in time, plan was to continue with medical management. Patient was on broad-spectrum antibiotics during the hospital stay for cellulitis, was discharged on Augmentin and doxycycline.For additional 2 weeks, she will follow-up with wound care as outpatient. For history of CHF she was continued on Lasix during the hospital stay, and was discharged on home dose of Bumex as well as metolazone, further history of chronic lymphedema she has been advised to continue with lymphedema wraps, overall patient has responded well to above medical management and she is being discharged home in stable conditions she will continue to follow PCP as outpatient. Physical Exam Const: COMMON NORMALS: patient oriented x3 HENMT: COMMON NORMALS: normocephalic and atraumatic HEAD & SCALP: normocephalic and atraumatic Resp: COMMON NORMALS: clear to auscultation bilaterally EFFORT & INSPECTION: Yes symmetric chest movement AUSCULTATION: clear to auscultation bilaterally Cardio: COMMON NORMALS: regular rate, regular rhythm, S1 normal heart sound present, S2 normal heart sound present, No gallops present (Cardio), No murmurs present (Cardio), No rub (Cardio) and Peripheral pulses 2+ throughout RATE: regular rate RHYTHM: regular rhythm HEART SOUNDS: S1 normal heart sound present and S2 normal heart sound present PERIPHERAL PULSES: Peripheral pulses 2+ throughout GI: COMMON NORMALS: Normal to inspection, nondistended, normoactive bowel sounds present, Soft to palpation, non-tender, No hepatosplenomegaly present and no masses AUSCULTATION: Yes normoactive bowel sounds PALPATION: Yes Soft to palpation and Yes No hepatosplenomegaly present RECTAL EXAM: deferred Extremity: NARRATIVE EXTREMITY EXAM: Bilateral extensive lymphedema, 2+ bilateral pitting edema, warm to touch Neuro: COMMON NORMALS: patient oriented x3 Urinary Catheter Management: Monsalve: Cath Placed During This Visit: yes Reason for Continuing Indwelling Catheter: Acute Urinary Retention or Obstruction Urinary Catheter Date of Insertion: 09/14/22 Discharge Data Studies Completed and Pending Completed Studies During Hospitalization Category Date Time Status CT foot LT wo con* [id number] Stat Cat Scan 09/14/22 17:[address] foot RT wo con* [id number] Stat Cat Scan 09/14/22 17:[address] lower leg LT wo con* [id number] Stat Cat Scan 09/14/22 17:[address] lower leg RT wo con* [id number] Stat Cat Scan 09/14/22 17:26 Completed CTA runoff [CT angio abd aorta runof [id number]] Stat Cat Scan 09/15/22 11:31 Completed XR chest 1V portable [id number] Stat Exams 09/14/22 15:01 [place] [id number] Stat Ultrasound 09/14/22 17:14 [place] [id number] Stat Ultrasound 09/14/22 15:01 Completed Pending at discharge Category Date Time Status Blood Culture Stat Lab 09/14/22 15:38 Results Prothrombin Time INR AM LABS Lab 09/20/22 04:00 Ordered Prothrombin Time INR AM LABS Lab 09/21/22 04:00 Ordered Radiology Impressions Chest X-Ray 09/14/22 15:01 IMPRESSION: 1. Pulmonary hyperinflation. No acute process seen. 2. Pleural-based soft tissue density involving the left base is stable in appearance when compared to the prior images as far back as 05/27/2021. Duplex Scan Lower Extremity Artery 09/14/22 17:14 IMPRESSION: 1. No flow is seen in the right superficial femoral artery suspicious for occlusion. Recommend catheter angiogram correlation and interventional radiology consultation. 2. Monophasic flow throughout the bilateral extremities suggesting inflow disease. ADDENDUM: 09/14/222016 THIS REPORT CONTAINS FINDINGS THAT MAY BE CRITICAL TO PATIENT CARE. The findings were verbally communicated via telephone conference with Dr Churchill at 8:15 PM [employer] on 09/14/2022. The findings were acknowledged and understood. Foot CT 09/14/22 17:26 IMPRESSION: 1. Diffuse subcutaneous soft tissue edema with skin thickening suggesting cellulitis. No drainable fluid collection or abscess. 2. No acute osseous injury. Lower Extremity CT 09/14/22 17:26 IMPRESSION: 1. Diffuse subcutaneous soft tissue edema with skin thickening suggesting cellulitis. No drainable fluid collection or abscess. 2. No acute osseous injury. Aorta w/Runoff CTA 09/15/22 11:31 IMPRESSION: 1. Right superficial femoral artery appears largely occluded with reconstitution distally with contrast seen in the distal superficial femoral artery, popliteal artery and arteries of the right calf. 2. Left superficial femoral artery bypass graft is seen which appears patent. [place] left superficial femoral artery appears occluded. 3. Subcutaneous edema throughout the lower extremities bilaterally, nonspecific. 4. Celiac artery eccentric atherosclerotic calcification proximally with 60-70% luminal narrowing. 5. Superior mesenteric artery eccentric atherosclerotic calcification with 70-80% luminal narrowing suspected. 6. Bilateral atherosclerotic calcification at the ostia of the renal arteries with suspected 60-70% luminal narrowing, right greater than left. 7. Emphysematous changes. 8. Bibasilar atelectasis versus infiltrate. 9. Coronary artery atherosclerotic calcifications. 10. Hepatic steatosis. 11. Several bilateral renal cysts, negative for follow-up advised. 12. Constipation. 13. Scattered atherosclerotic calcifications throughout the lower extremity arterial system. 14. Left internal iliac artery appears occluded. 15. Prominent inguinal lymph nodes bilaterally measuring up to 11 mm on the right, nonspecific. 16. Monsalve catheter in the urinary bladder with air presumed iatrogenic. ADDENDUM: 09/15/22 1433 Please ignore under findings the statement Fifth reason of initial without bowel IIA left lower rough segment nodes thickened Laboratory Results WBC 12.2 10^3/uL (4.0-10.0) H 09/19/22 06:39 RBC 3.61 10^6/uL (4.1-5.3) L 09/19/22 06:39 Hgb 10.3 g/dL (11.5-15.3) L 09/19/22 06:39 Hct 33.1 % (37.0-47.0) L 09/19/22 06:39 MCV 91.7 fl (81-99) 09/19/22 06:39 MCH 28.5 pg (28.0-34.0) 09/19/22 06:39 MCHC 31.1 g/dL (30.0-36.0) 09/19/22 06:39 RDW 14.9 % (12.1-15.1) 09/19/22 06:39 Plt Count 209 10^3/cmm (130-400) 09/19/22 06:39 MPV 10.4 fL (7.4-10.4) 09/19/22 06:39 Neut % (Auto) 75.5 % 09/19/22 06:39 Lymph % (Auto) 8.7 % 09/19/22 06:39 [place] % (Auto) 8.8 % 09/19/22 06:39 Eos % (Auto) 5.7 % 09/19/22 06:39 Baso % (Auto) 0.7 % 09/19/22 06:39 Neut # (Auto) 9.21 10^3/uL (1.8-7.7) H 09/19/22 06:39 Lymph # (Auto) 1.1 10^3/uL (0.8-4.8) 09/19/22 06:39 [place] # (Auto) 1.1 10^3/uL (0.2-0.9) H 09/19/22 06:39 Eos # (Auto) 0.7 10^3/uL (0.0-0.8) 09/19/22 06:39 Baso # (Auto) 0.1 10^3/uL (0.0-0.1) 09/19/22 06:39 Nucleated RBC % (auto) 0 % 09/19/22 06:39 Nucleated RBCs # 0.0 /100WBC 09/19/22 06:39 PT 17.80 SECONDS (12.1-14.9) H 09/19/22 06:39 INR 1.43 (0.8-1.2) H 09/19/22 06:39 APTT 43.1 SECONDS (23.9-36.7) H D 09/15/22 20:45 Sodium 136 mmol/L (136-145) 09/19/22 06:39 Potassium 3.7 mmol/L (3.5-5.1) 09/19/22 06:39 Chloride 94 mmol/L (98-107) L 09/19/22 06:39 Carbon Dioxide 33 mmol/L (22-29) H 09/19/22 06:39 Anion Gap 12.7 (5-19) 09/19/22 06:39 BUN 21 mg/dL (8-23) 09/19/22 06:39 Creatinine 1.0 mg/dL (0.5-0.9) H 09/19/22 06:39 GFR Calculation Not Reportable 09/19/22 06:39 Glucose 94 mg/dL (65-115) 09/19/22 06:39 Estimat Average Glucose 126 09/15/22 05:07 Hemoglobin A1c 6.0 % (4.0-6.0) 09/15/22 05:07 Calculated Osmolality 285 mOsm/kg (285-295) 09/19/22 06:39 Lactic Acid 1.1 mmol/L (0.5-2.2) 09/14/22 14:26 Calcium 9.0 mg/dL (8.5-10.5) 09/19/22 06:39 Phosphorus 3.9 mg/dL (2.5-4.5) 09/15/22 05:07 Magnesium 1.6 mg/dL (1.7-2.3) L 09/15/22 05:07 Iron 46 ug/dL (37-145) 09/14/22 14:26 TIBC 226 mcg/dl 09/14/22 14:26 % Saturation 20.3 % (20-50) 09/14/22 14:26 Unsat Iron Binding 180 ug/dL (112-347) 09/14/22 14:26 Total Bilirubin 0.5 mg/dL (0.15-1.2) 09/18/22 05:02 AST 16 U/L (0-32) 09/18/22 05:02 ALT 9 U/L (0-33) 09/18/22 05:02 Alkaline Phosphatase 101 U/L (35-105) 09/18/22 05:02 C-Reactive Protein 17.2 mg/L (0.0-4.9) H 09/14/22 14:26 NT-Pro-B Natriuret Pep 392 pg/mL (0-125) H 09/14/22 14:26 Total Protein 6.8 g/dL (6.6-8.7) 09/18/22 05:02 Albumin 3.2 g/dL (3.5-5.2) L 09/18/22 05:02 Globulin 3.6 g/dL (1.3-4.6) 09/18/22 05:02 Triglycerides 111 mg/dL (0-150) 09/15/22 05:07 Cholesterol 127 mg/dL (0-200) 09/15/22 05:07 LDL Cholesterol, Calc 61 mg/dL (50-129) 09/15/22 05:07 Total VLDL Cholesterol 22 mg/dL (0-30) 09/15/22 05:07 HDL Cholesterol 44 mg/dL (60-100) L 09/15/22 05:07 Cholesterol/HDL Ratio 2.89 mg/dL (0.0-4.40) 09/15/22 05:07 Vitamin B12 377 pg/mL (232-1245) 09/14/22 14:26 Folate 10.5 ng/mL (4.8-37.3) 09/14/22 15:01 Procalcitonin 0.03 ng/mL (0-0.5) 09/14/22 14:26 TSH 2.29 uIU/mL (0.27-4.20) 09/14/22 14:26 TSH Cancelled 09/14/22 14:26 Urine Color Colorless (Yellow) 09/14/22 19:46 Urine Appearance Clear (CLEAR) 09/14/22 19:46 Urine pH 7 (5-7) 09/14/22 19:46 Ur Specific [place] 1.005 (1.005-1.030) 09/14/22 19:46 Urine Protein Neg (Negative) 09/14/22 19:46 Urine Glucose (UA) Norm (Normal) 09/14/22 19:46 Urine Ketones Negative (Negative) 09/14/22 19:46 Urine Blood Neg (Negative) 09/14/22 19:46 Urine Nitrate Negative (Negative) 09/14/22 19:46 Urine Bilirubin Neg (Negative) 09/14/22 19:46 Urine Urobilinogen Neg mg/dL (Negative) 09/14/22 19:46 Ur Leukocyte Esterase Negative (Negative) 09/14/22 19:46 Vancomycin Trough 17.0 ug/mL (10-15) H 09/19/22 06:39 Vitals Last Vital Signs Temp 97.7 F 09/19/22 08:00 Pulse 80 09/19/22 08:37 Resp 18 09/19/22 08:37 BP 121/59 09/19/22 08:00 Pulse Ox 93 09/19/22 08:37 O2 Del Method 09/19/22 08:37 O2 Flow Rate 2 09/19/22 08:37 Discharge Plan Discharge Patient Disposition: Home Condition: Stable Prescriptions: New doxycycline monohydrate 100 mg capsule 100 mg PO BID 14 Days Qty: 28 0RF Augmentin 500-125 mg tablet 1 tab PO BID 14 Days Qty: 28 0RF Continued albuterol sulfate 90 mcg/actuation HFA aerosol inhaler 1 puff inhalation QID PRN (Reason: shortness of breath or wheezing) Qty: 8.5 6RF hydrocodone-acetaminophen 5-325 mg tablet 1 tab PO Q4H PRN (Reason: pain) 5 Days Qty: 30 0RF bumetanide 2 mg tablet 2 mg PO BID Qty: 180 3RF atorvastatin 80 mg tablet 80 mg PO DAILY Qty: 90 3RF carvedilol 6.25 mg tablet 6.25 mg PO BID Qty: 180 3RF Rx Instructions: must administer with a meal/food metolazone 2.5 mg tablet 2.5 mg PO .every other day Qty: 90 3RF spironolactone 25 mg tablet 25 mg PO DAILY Qty: 90 3RF warfarin 3 mg tablet 3 mg PO DIRECTED Qty: 90 2RF Protocol: Dose Management Condition: Saturday Dose/Route: 3 mg Instruction: 1 x 3 mg tablet Condition: Saturday Dose/Route: 3 mg Instruction: 1 x 3 mg tablet Condition: Saturday Dose/Route: 3 mg Instruction: 1 x 3 mg tablet Condition: Saturday Dose/Route: 3 mg Instruction: 1 x 3 mg tablet Condition: Dose/Route: 3 mg Instruction: 1 x 3 mg tablet Condition: Saturday Dose/Route: 3 mg Instruction: 1 x 3 mg tablet Condition: Saturday Dose/Route: 3 mg Instruction: 1 x 3 mg tablet Protocol Text: Adjustment Start Date: Saturday08/21/22 INR Value: 25.8 Seconds INR Date: 08/21/22 Recheck Date: 09/18/22 famotidine [Pepcid AC] 20 mg tablet 20 mg PO DAILY Qty: 90 3RF magnesium L-lactate 84 mg tablet extended release 250 mg PO BID potassium chloride 20 mEq tablet extended release 40 meq PO BID aspirin 81 mg Capsule 81 mg PO DAILY Discharge Orders: Discharge Order (Routine); Ordered 09/19/22 Ordered By: Harinder Nowak Referrals: Gurwinder Lomeli DO [Primary Care Provider] - (PLEASE CALL FOR APPOITMENT) [facility], [Staff Physician] - 09/24/22 8:00 am (Patient prefers [phone]) Patient Instructions: Doxycycline (By mouth), Amoxicillin/Clavulanate Potassium (By mouth), Cellulitis (GEN), Deep Vein Thrombosis (GEN), Leg Edema (ED), Opioid Safety Discharge Attestations Time Spent in Discharge Care*: greater than 30 min Status at Discharge: Cognitive status at discharge: cognitively intact , Behavioral status at discharge: cooperative , Quality Metrics Clinical Quality Measures [ No reported AMI, CVA or VTE this stay] Coding Level of Care Code Acute Chg DC note Exam Detailed Diagnoses Lymphedema of both lower extremities I89.0 Peripheral vascular disease I73.9 Cellulitis L03.90 Dyslipidemia E78.5 Hypertension I10 Peripheral edema R60.9 COPD (chronic obstructive pulmonary disease) J44.9
[2022-09-19] MEDS: famotidine 20 mg/2 mL INJ IVP (10:12)
[2022-09-19 10:26] VITALS: O2SAT 93
--- NOTE | 2022-09-19 10:41 | PC.SOCIAL ---
IMM update IMM updated with patient and at bedside. Verbalized an understanding. Copy Pg 2 provided. Initialled, dated, timed, and placed in chart.
--- NOTE | 2022-09-19 10:58 | PC.NURSE ---
Discharge Note Patient discharged to home via private vehicle accompanied by . Discharge instructions reviewed with patient and/or education courses sales representative. Mobile pharmacy medications and/or prescriptions provided. Belongings/home medications returned. Answered all questions.
[2022-09-19 11:57] VITALS: BP 121/59; PULSE 80; RESP 18; TEMP 36.5; O2SAT 93
== END 2022-09-19 11:57 | disposition home health service (06) | DRG 603 ==
LOC: ER 17:20 → MEDSURG 19:51
PROVIDERS: Physician Assistant; Student in an Organized Health Care Education/Training Program; Admitting Provider Student in an Organized Health Care Education/Training Program; Emergency Provider Family Medicine; PCP Family Medicine; Visit Provider Internal Medicine
DX: L03.116 Cellulitis of left lower limb (principal); I50.32 Chronic diastolic (congestive) heart failure; L03.115 Cellulitis of right lower limb; I73.9 Peripheral vascular disease, unspecified; E78.5 Hyperlipidemia, unspecified; I11.0 Hypertensive heart disease with heart failure; J44.9 Chronic obstructive pulmonary disease, unspecified; Z98.890 Other specified postprocedural states; Z95.820 Peripheral vascular angioplasty status with implants and grafts; F17.200 Nicotine dependence, unspecified, uncomplicated; Z79.51 Long term (current) use of inhaled steroids; Z79.02 Long term (current) use of antithrombotics/antiplatelets; Z79.82 Long term (current) use of aspirin; Z86.73 Personal history of transient ischemic attack (TIA), and cerebral infarction without residual deficits; G62.9 Polyneuropathy, unspecified; Z79.891 Long term (current) use of opiate analgesic
CPT/HCPCS: 29581; 36415; 51702; 71045; 73700; 75635; 80048; 80053; 80061; 80202; 81003; 82607; 82746; 83036; 83540; 83550; 83605; 83735; 83880; 84100; 84145; 84443; 85025; 85049; 85610; 85730; 86140; 86403; 87040; 87641; 93005; 93925; 93970; 93971; 94640; 94664; 96365; 96374; 96376; 97110; 97116; 97161; 97530; 99285; J1644; J1940; J2543; J3370; J3490; J7050; J7611; J7613; Q9967

== ENCOUNTER → 2022-09-26 13:27 | Outpatient (BNVA) | payer MEDICARE, OTHER, SELFPAY | PROVIDERS: PCP Family Medicine; Visit Provider Thoracic Surgery (Cardiothoracic Vascular Surgery) | DX: I89.0 Lymphedema, not elsewhere classified (principal); L97.522 Non-pressure chronic ulcer of other part of left foot with fat layer exposed; L97.512 Non-pressure chronic ulcer of other part of right foot with fat layer exposed | CPT/HCPCS: 99213 ==

== ENCOUNTER 2022-10-03 08:28 | Outpatient (CLI) | payer MEDICARE, OTHER, SELFPAY ==
--- NOTE | 2022-10-03 08:30 | USCV_ITS ---
Nimo Pressley Age: 72 Gender: F : 1950 Exam Date: 10/03/2022 08:34 Ordering Phys: Lance Plascencia MD (Andy) ([email or web address] [place]) Technologist: CT Exam Location: [facility] [place] Indication: previous bilateral cea's Risk Factors: Previous Vascular Surgery: Right Brachial BP: / Left Brachial BP: / Right Left Velocity (cm/s) Spectral Plaque Velocity (cm/s) Spectral Plaque Syst/Diast Broadening Syst/Diast Broadening 87.20/ 12.00 Prox CCA 130.70/ 17.00 79.80/ 10.90 Mid CCA 67.60 / 11.50 88.40/ 11.50 Distal CCA 84.80 / 13.80 64.40/ 19.70 Prox ICA 72.70 / 15.70 89.40/ 23.70 Mid ICA 106.80/ 16.30 80.20/ 26.30 Distal ICA 125.40/ 19.70 128.80 ECA 74.50 1.01 ICA/CCA 0.96 Antegrade Vertebral Antegrade 93.30/ 13.10 cm/s 83.90/ 20.20 cm/s Tri Subclavian Bi 188.9 266.5 0 0 FINDINGS Comparison: none available. No significant elevation of systolic or diastolic velocities. Diffuse bilateral scattered calcified plaque and intimal thickening throughout the common carotid arteries and extending through the bifurcation. Antegrade vertebral arteries. CONCLUSIONS Bilateral ICA stenosis less than 50%. Mild diffuse carotid atherosclerosis. Dr. Lina Azul DO (Electronically Signed) Final Date: 03 October 2022 11:26 S
== END 2022-10-03 08:29 | disposition home or self-care (01) ==
LOC: RAD 08:28
PROVIDERS: PCP Family Medicine; Visit Provider Thoracic Surgery (Cardiothoracic Vascular Surgery)
DX: I65.23 Occlusion and stenosis of bilateral carotid arteries (principal); I89.0 Lymphedema, not elsewhere classified
CPT/HCPCS: 93880; 99212

== ENCOUNTER → 2022-10-05 12:22 | Outpatient (BNVA) | payer MEDICARE, OTHER, SELFPAY | PROVIDERS: PCP Family Medicine; Visit Provider Clinical Nurse Specialist Adult Health | DX: Z09 Encounter for follow-up examination after completed treatment for conditions other than malignant neoplasm (principal); I70.209 Unspecified atherosclerosis of native arteries of extremities, unspecified extremity; Z79.01 Long term (current) use of anticoagulants | CPT/HCPCS: 85610 ==

== ENCOUNTER → 2022-10-15 10:17 | Outpatient (BNVA) | payer MEDICARE, OTHER, SELFPAY | PROVIDERS: PCP Family Medicine; Visit Provider Family Medicine | DX: I70.209 Unspecified atherosclerosis of native arteries of extremities, unspecified extremity (principal); Z79.01 Long term (current) use of anticoagulants | CPT/HCPCS: 85610 ==

== ENCOUNTER → 2022-10-23 10:18 | Outpatient (BNVA) | payer MEDICARE, OTHER, SELFPAY | PROVIDERS: PCP Family Medicine; Visit Provider Physician Assistant | DX: Z98.890 Other specified postprocedural states (principal) | CPT/HCPCS: 99213 ==

== ENCOUNTER → 2022-10-25 12:39 | Outpatient (BNVA) | payer MEDICARE, OTHER, SELFPAY | PROVIDERS: PCP Family Medicine; Visit Provider Podiatrist Foot & Ankle Surgery | DX: I73.9 Peripheral vascular disease, unspecified (principal); L60.3 Nail dystrophy; M21.611 Bunion of right foot; M21.612 Bunion of left foot; M20.40 Other hammer toe(s) (acquired), unspecified foot | CPT/HCPCS: 11721 ==

== ENCOUNTER → 2022-11-01 13:53 | Outpatient (BNVA) | payer MEDICARE, OTHER, SELFPAY | PROVIDERS: PCP Family Medicine; Visit Provider Family Medicine | DX: I70.209 Unspecified atherosclerosis of native arteries of extremities, unspecified extremity (principal); Z79.01 Long term (current) use of anticoagulants; L03.90 Cellulitis, unspecified | CPT/HCPCS: 85610 ==

== ENCOUNTER → 2022-11-14 12:12 | Outpatient (BNVA) | payer MEDICARE, OTHER, SELFPAY | PROVIDERS: PCP Family Medicine; Visit Provider Nurse Practitioner Family | DX: I73.9 Peripheral vascular disease, unspecified (principal); R05.9 Cough, unspecified; J40 Bronchitis, not specified as acute or chronic; I11.0 Hypertensive heart disease with heart failure; I50.30 Unspecified diastolic (congestive) heart failure; I65.23 Occlusion and stenosis of bilateral carotid arteries; Z87.891 Personal history of nicotine dependence; E78.5 Hyperlipidemia, unspecified | CPT/HCPCS: 36415; 71046; 80048; 83880; 85025; 99214 ==

== ENCOUNTER → 2022-11-30 09:24 | Outpatient (BNVA) | payer MEDICARE, OTHER, SELFPAY | PROVIDERS: PCP Family Medicine; Visit Provider Family Medicine | DX: I70.209 Unspecified atherosclerosis of native arteries of extremities, unspecified extremity (principal) | CPT/HCPCS: 85610 ==

== ENCOUNTER 2022-12-10 09:40 | Outpatient (CLI) | payer MEDICARE, OTHER, SELFPAY ==
[2022-12-10 12:07] LABS: INR 1.64 (0.9-1.1)
== END 2022-12-10 09:41 | disposition home or self-care (01) ==
LOC: LAB 09:43
PROVIDERS: PCP Family Medicine; Visit Provider Family Medicine
DX: Z79.01 Long term (current) use of anticoagulants (principal)
CPT/HCPCS: 36415; 85610

== ENCOUNTER 2022-12-18 10:54 | Outpatient (CLI) | payer MEDICARE, OTHER, SELFPAY ==
[2022-12-18 13:01] LABS: INR 1.52 (0.8-1.2)
== END 2022-12-18 10:55 | disposition home or self-care (01) ==
LOC: LAB 10:59
PROVIDERS: PCP Family Medicine; Visit Provider Family Medicine
DX: I65.29 Occlusion and stenosis of unspecified carotid artery (principal); Z79.01 Long term (current) use of anticoagulants
CPT/HCPCS: 36415; 85610

== ENCOUNTER 2022-12-24 13:20 | Outpatient (CLI) | payer MEDICARE, OTHER, SELFPAY ==
[2022-12-24 14:16] LABS: INR 1.87 (0.8-1.2)
== END 2022-12-24 13:21 | disposition home or self-care (01) ==
LOC: LAB 13:28
PROVIDERS: PCP Family Medicine; Visit Provider Family Medicine
DX: Z79.01 Long term (current) use of anticoagulants (principal)
CPT/HCPCS: 85610

== ENCOUNTER 2023-01-03 11:08 | Outpatient (CLI) | payer MEDICARE, OTHER, SELFPAY ==
[2023-01-03 12:23] LABS: INR 3.05 (0.8-1.2)
== END 2023-01-03 11:09 | disposition home or self-care (01) ==
LOC: LAB 11:15
PROVIDERS: PCP Family Medicine; Visit Provider Family Medicine
DX: Z79.01 Long term (current) use of anticoagulants (principal)
CPT/HCPCS: 85610

== ENCOUNTER 2023-01-21 09:08 | Outpatient (CLI) | payer MEDICARE, OTHER, SELFPAY ==
[2023-01-21 10:07] LABS: INR 3.59 (0.8-1.2)
== END 2023-01-21 09:09 | disposition home or self-care (01) ==
LOC: LAB 09:15
PROVIDERS: PCP Family Medicine; Visit Provider Family Medicine
DX: Z01.89 Encounter for other specified special examinations (principal); Z79.01 Long term (current) use of anticoagulants
CPT/HCPCS: 36415; 85610

== ENCOUNTER → 2023-01-24 13:44 | Outpatient (BNVA) | payer MEDICARE, OTHER, SELFPAY | PROVIDERS: PCP Family Medicine; Visit Provider Podiatrist Foot & Ankle Surgery | DX: I73.9 Peripheral vascular disease, unspecified (principal); L60.8 Other nail disorders; L60.3 Nail dystrophy; M20.42 Other hammer toe(s) (acquired), left foot; M20.41 Other hammer toe(s) (acquired), right foot; M21.611 Bunion of right foot; M21.612 Bunion of left foot | CPT/HCPCS: 11721 ==

== ENCOUNTER 2023-01-25 09:25 | Inpatient (IN) | payer MEDICARE, OTHER, SELFPAY ==
[2023-01-25] VITALS (24 sets, daily range): BP systolic 89–139; BP diastolic 43–89; PULSE 83–150; RESP 16–33; TEMP 36.7–36.8; O2SAT 89–99
--- NOTE | 2023-01-25 09:48 | XR_ITS ---
WS: [id number] Portable AP upright chest, 01/25/2023 Clinical Data: dyspnea/cough Comparison: Two-view chest, 11/14/2022 Findings: No nodules, masses or effusions are seen. The heart is likely enlarged. The pulmonary vascu larity is not increased. No pneumonia or pneumothorax is seen. The aortic arch and descending thoraci c aorta show tortuosity. There are bilateral cardiophrenic fat pads or cysts. Monitor leads are on th e chest wall. There is vertebroplasty cement in lower thoracic vertebral bodies. XR/XR chest 1V portable [id number] Impression: Atherosclerosis and cardiomegaly.
--- NOTE | 2023-01-25 09:55 | ECG_ITS ---
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 Measurements Intervals [place] Rate: 140 P: 0 ID: 0 QRS: 68 QRSD: 67 T: 70 QT: 256 QTc: 391 Interpretive Statements ATRIAL FIBRILLATION WITH RAPID VENTRICULAR RESPONSE LOW QRS VOLTAGE IN PRECORDIAL LEADS [QRS DEFLECTION < 1.0 mV IN CHEST LEADS] SEPTAL MYOCARDIAL INFARCTION , OF INDETERMINATE AGE [40+ ms Q WAVE IN V1/V2] Compared to ECG 09/14/2022 16:06:54 Myocardial infarct finding now present Sinus tachycardia no longer present Electronically Signed On 01-25-2023 10:28:05 CDT by Itz Hale M.D. [email or web address]
[2023-01-25] MEDS: dilTIAZem 5 mg/mL SDV 5 mL 10 MG IVP (10:13)
[2023-01-25] MEDS: FUROsemide 10 mg/mL SDV 4mL 40 MG IVP ×2 (10:13→17:11)
[2023-01-25 10:15] LABS: Basophils # 0.1 10^3/uL (0.0-0.1); Basophils % 0.3 %; Eosinophils # 0.1 10^3/uL (0.0-0.8); Eosinophils % 0.3 %; Hematocrit 36.2 % (37.0-47.0); Hemoglobin 11.2 g/dL (11.5-15.3); Lymphocytes # 0.6 10^3/uL (0.8-4.8); Lymphocytes % 2.1 %; Mean Corpuscular HGB Conc 30.9 g/dL (30.0-36.0); Mean Corpuscular Hemoglobin 27.6 pg (28.0-34.0); Mean Corpuscular Volume 89.2 fl (81-99); Mean Platelet Volume 10.2 fL (7.4-10.4); Monocytes # 1.3 10^3/uL (0.2-0.9); Monocytes % 4.5 %; Neutrophils # 26.41 10^3/uL (1.8-7.7); Nucleated Red Blood Cells % 0 %; Platelet Count 289 10^3/cmm (130-400); Red Blood Count 4.06 10^6/uL (4.1-5.3); Red Cell Distribution Width 15.6 % (12.1-15.1); White Blood Count 29.1 10^3/uL (4.0-10.0)
[2023-01-25] MEDS: dilTIAZem 100 MG in sodium chloride 0.9% (add-van) 100 ML IV (10:21)
[2023-01-25 10:30] LABS: INR 2.66 (0.8-1.2)
[2023-01-25 10:41] LABS: Alanine Aminotransferase 23 U/L (0-33); Albumin Level 3.9 g/dL (3.5-5.2); Alkaline Phosphatase 152 U/L (35-105); Anion Gap 17.2 (5-19); Aspartate Amino Transferase 21 U/L (0-32); Blood Urea Nitrogen 49 mg/dL (8-23); Calcium 8.8 mg/dL (8.5-10.5); Carbon Dioxide 25 mmol/L (22-29); Chloride 91 mmol/L (98-107); Globulin 3.1 g/dL (1.3-4.6); Glucose 109 mg/dL (65-115); Osmolality Calculated 280 mOsm/kg (285-295); Potassium 5.2 mmol/L (3.5-5.1); Sodium 128 mmol/L (136-145); Total Bilirubin 0.9 mg/dL (0.15-1.2)
[2023-01-25 10:42] LABS: Troponin(5th) Baseline 16 ng/L (0-10)
--- NOTE | 2023-01-25 10:43 | ED_ITS ---
HPI - SOB/Dyspnea General: Chief Complaint: Shortness of Breath/Dyspnea Stated Complaint: from woundcare, fluid in chest Time Seen by Provider: 01/25/23 09:27 Source: patient Mode of arrival: ambulatory History of Present Illness: HPI Narrative: 72-year-old female arrives from wound care with A-fib with RVR. She has a known history of A-fib presented there today with weeping from her legs she has incr easing shortness of breath and rapid heart rate she did take all of her regular medications this morning despite this her rate is out of control. She has noticed increased orthopnea and increased swelling in her legs. She does not have any wounds in her legs but has had some weeping them and doing the wraps on her legs at the wound care clinic. MD elicited complaint: shortness of breath Pertinent past history: congestive heart failure and other (Atrial fibrillation) Timing: constant Severity: severe Exacerbating factors: lying flat, exertion and movement Relieving factors: rest and upright position Known history of: congestive heart failure and other (A-fib) Associated symptoms: Reports orthopnea and palpitations; Deny abdominal pain, chest congestion, chest pain, cough, diaphoresis, dizziness, extremity pain, fever(s), hemoptysis, lightheadedness, myalgias, nausea, paresthesias, polydipsia, polyuria, rash, sense of impending doom, syncope or vomiting Treatment prior to arrival: none Review of Systems Const: Denies: fever(s) or diaphoresis ENMT: Denies: throat pain, ear or mastoid pain, nasal discharge or nasal congestion Card: Reports: palpitations, edema, swelling of feet/ankles, dyspnea on exertion and orthopnea; Denies: chest pain, lightheadedness or syncope Resp: Reports: dyspnea; Denies: hemoptysis or chest congestion GI: Denies: abdominal pain, nausea or vomiting : Denies: flank pain, difficulty voiding, dysuria, urinary frequency or urinary urgency Musc: Denies: extremity pain Skin/Breast: Denies: rash or pruritus Neuro: Denies: dizziness Endo: Denies: polyuria or polydipsia [facility] PFSH: Medical History (Updated 01/25/23 @ 15:03 by Adeel Bejarano DO) Abdominal distention Acute hyponatremia Carotid artery stenosis Carotid disease, bilateral Cellulitis Chest pain CHF (congestive heart failure), NYHA class III Diastolic heart failure with EF of 55 to 60% COPD (chronic obstructive pulmonary disease) Dyslipidemia Femoral artery occlusion Hypertension Lymphedema of both lower extremities PAD (peripheral artery disease) Peripheral edema Peripheral vascular disease Respiratory failure Smoker SOB (shortness of breath) Superficial femoral artery occlusion TIA (transient ischemic attack) Uncontrolled hypertension Venous stasis dermatitis of right lower extremity Surgical History S/P peripheral artery angioplasty with stent placement S/P vascular surgery Status post carotid surgery (~2012) bilateral Family History Other CAD (coronary artery disease) Social History Smoking and tobacco status: former smoker Quit status (tobacco): considering quitting Second hand smoke exposure: Yes Alcohol intake: never Substance/Drug Use: never Caregiver/support person: Yes Lives independently: Yes Household members: spouse Marital status: service: No Current occupational status: retired Current gender identity: Female Physical Exam Const: GENERAL APPEARANCE: cooperative and comfortable ORIENTATION/CONSCIOUSNESS: Yes awake, Yes oriented to person, Yes oriented to place and Yes oriented to time HENMT: COMMON NORMALS: normocephalic, atraumatic and hearing grossly normal bilaterally HEAD & SCALP: normocephalic and atraumatic Resp: COMMON NORMALS: normal respiratory effort, No retractions and No use of accessory muscles AUSCULTATION: crackles Cardio: RATE: tachycardic RHYTHM: abnormal rhythm irregularly irregular GI: COMMON NORMALS: Soft to palpation and No hepatosplenomegaly present AUSCULTATION: Yes normoactive bowel sounds PALPATION: Yes Soft to palpation, No Tenderness to palpation present (GI), No Guarding due to palpation present (GI) and Yes No hepatosplenomegaly present Extremity: COMMON NORMALS: normal to inspection, capillary refill normal, no clubbing, cyanosis or edema, no calf tenderness and no pedal edema Neuro: SENSORIUM/ORIENTATION: Yes oriented to person, Yes oriented to place and Yes oriented to time Skin: COMMON NORMALS: no rashes or lesions noted GENERAL SKIN EXAM: no rashes or lesions noted Course Vital Signs: Vital signs: Vital Signs Temperature 98.3 F 01/25/23 09:56 Pulse Rate 97 01/25/23 13:19 Respiratory Rate 29 H 01/25/23 13:19 Blood Pressure 127/73 01/25/23 13:19 Pulse Oximetry 95 01/25/23 13:19 Oxygen Delivery Me thod Nasal Cannula 01/25/23 09:56 Oxygen Flow Rate 2 01/25/23 09:56 MDM - SOB/Dyspnea Medical Decision Making Decompensated congestive heart failure with A-fib with RVR. She does have significant hyperkalemia as well as some mild hyponatremia and mild acute kidney injury. She has been given Lasix. She is started on Cardizem. She is on spironolactone and potassium supplement both of which will likely have to be held. She did take her beta-sue today although it did not seem to control her rate appropriately. Discussed with hospitalist orders written. Medical Records I reviewed the patient's medical records. Lab Data I reviewed the patient's lab results. 01/25/23 09:48 01/25/23 10:08 Labs/Radiology: Radiology Impressions Chest X-Ray 01/25/23 09:48 Impression: Atherosclerosis and cardiomegaly. Laboratory Results WBC 29.1 10^3/uL (4.0-10.0) H 01/25/23 09:48 RBC 4.06 10^6/uL (4.1-5.3) L 01/25/23 09:48 Hgb 11.2 g/dL (11.5-15.3) L 01/25/23 09:48 Hct 36.2 % (37.0-47.0) L 01/25/23 09:48 MCV 89.2 fl (81-99) 01/25/23 09:48 MCH 27.6 pg (28.0-34.0) L 01/25/23 09:48 MCHC 30.9 g/dL (30.0-36.0) 01/25/23 09:48 RDW 15.6 % (12.1-15.1) H 01/25/23 09:48 Plt Count 289 10^3/cmm (130-400) 01/25/23 09:48 MPV 10.2 fL (7.4-10.4) 01/25/23 09:48 Neut % (Auto) 91.0 % 01/25/23 09:48 Lymph % (Auto) 2.1 % 01/25/23 09:48 I[place]quois % (Auto) 4.5 % 01/25/23 09:48 Eos % (Auto) 0.3 % 01/25/23 09:48 Baso % (Auto) 0.3 % 01/25/23 09:48 Neut # (Auto) 26.41 10^3/uL (1.8-7.7) H 01/25/23 09:48 Lymph # (Auto) 0.6 10^3/uL (0.8-4.8) L 01/25/23 09:48 [place]ois # (Auto) 1.3 10^3/uL (0.2-0.9) H 01/25/23 09:48 Eos # (Auto) 0.1 10^3/uL (0.0-0.8) 01/25/23 09:48 Baso # (Auto) 0.1 10^3/uL (0.0-0.1) 01/25/23 09:48 Nucleated RBC % (auto) 0 % 01/25/23 09:48 Nucleated RBCs # 0.0 /100WBC 01/25/23 09:48 PT 29.40 SECONDS (12.1-14.9) H 01/25/23 10:08 INR 2.66 (0.8-1.2) H 01/25/23 10:08 Sodium 128 mmol/L (136-145) L 01/25/23 10:08 Potassium 5.2 mmol/L (3.5-5.1) H 01/25/23 10:08 Chloride 91 mmol/L (98-107) L 01/25/23 10:08 Carbon Dioxide 25 mmol/L (22-29) 01/25/23 10:08 Anion Gap 17.2 (5-19) 01/25/23 10:08 BUN 49 mg/dL (8-23) H 01/25/23 10:08 Creatinine 1.7 mg/dL (0.5-0.9) H 01/25/23 10:08 GFR Calculation Not Reportable 01/25/23 10:08 Glucose 109 mg/dL (65-115) 01/25/23 10:08 Calculated Osmolality 280 mOsm/kg (285-295) L 01/25/23 10:08 Calcium 8.8 mg/dL (8.5-10.5) 01/25/23 10:08 Total Bilirubin 0.9 mg/dL (0.15-1.2) 01/25/23 10:08 AST 21 U/L (0-32) 01/25/23 10:08 ALT 23 U/L (0-33) 01/25/23 10:08 Alkaline Phosphatase 152 U/L (35-105) H 01/25/23 10:08 Troponin T Baseline 16 ng/L (0-10) H 01/25/23 10:08 Troponin T 120 Minute 14.66 ng/L (0-10) H 01/25/23 12:00 Delta Troponin T -1.34 ABS# (0-10) L 01/25/23 12:00 C-Reactive Protein 324.0 mg/L (0.0-4.9) H 01/25/23 12:00 NT-Pro-B Natriuret Pep 2856 pg/mL (0-125) H 01/25/23 12:00 Total Protein 7.0 g/dL (6.6-8.7) 01/25/23 10:08 Albumin 3.9 g/dL (3.5-5.2) 01/25/23 10:08 Globulin 3.1 g/dL (1.3-4.6) 01/25/23 10:08 Procalcitonin 0.73 ng/mL (0-0.5) H 01/25/23 12:00 Discharge Plan Discharge Patient Disposition: Admitted As Inpatient Admit Provider: Elder Rubin Clinical Impression: CHF (congestive heart failure), NYHA class III, Atrial fibrillation with RVR, CHF exacerbation, Leukocytosis, KATHI (acute kidney injury), Hyponatremia, Hyperkalemia Condition: Stable Coding Level of Care Code ED Computer Salesperson [employer] for Daniela Dixon
--- NOTE | 2023-01-25 11:54 | ECG_ITS ---
[facility] Test Date: 2023-01-25 Pat Name: Nimo Pressley Department: Room: Gender: Female Clinical Trial Educator: : 1950 Requested By: Adeel Perla Order Number: [id number] Barbara MD: Itz Hale M.D. Measurements Intervals [place] Rate: 127 P: 0 TX: 0 QRS: 65 QRSD: 70 T: 66 QT: 274 QTc: 399 Interpretive Statements ATRIAL FIBRILLATION WITH RAPID VENTRICULAR RESPONSE LOW QRS VOLTAGE IN PRECORDIAL LEADS [QRS DEFLECTION < 1.0 mV IN CHEST LEADS] SEPTAL MYOCARDIAL INFARCTION , PROBABLY OLD [40+ ms Q WAVE IN V1/V2] Compared to ECG 01/25/2023 09:55:21 No significant changes Electronically Signed On 01-25-2023 13:07:03 CDT by Itz Hale M.D. [id number]
[2023-01-25 12:36] LABS: Troponin 5 2HR 14.66 ng/L (0-10); Troponin 5 2HR Delta -1.34 ABS# (0-10)
--- NOTE | 2023-01-25 12:52 | PM.HP ---
Providers/Chief Complaint Admitting Physician: Elder Rubin MD Primary Care Provider: Gurwinder Lomeli DO Chief Complaint: from woundcare, fluid in chest History of Present Illness Nimo Pressley is a 72 year old female with Hx of HFpEF, HTN, HLD, Afib on coumadin, PAD s/p bilat carotid endarterectomy (2012) and fem-pop bypass, COPD, Tobacco use disorder and chronic wounds presented to ED with SOB and in Afib RVR. States this AM she was at [facility] wound care with Dr. Plascencia, HR elevated, sent to ED. Pt states she began feeling poorly 2dpta. emesis x 3 yday, abd pain and upset stomach. states she has felt bloated Admitted to some intermittent CP. States this is the first time she has been hospitalized with Afib RVR. Presented to ED with SOB, CP, palpitations, dizziness. in ED started on cardizem gtt and Sx started to improved. states she looks improved and not breathing as hard. Admits to chronic wound on bilateral legs 2/2 poor blood flow. States wounds are starting to open up again. has been managed by OP wound care and family. friend state she has had more purulent drainage from wound over past few days. no Abx since last hospitalization in 10/11 for cellulitis. At time pt's Cx was negative. pt not wearing lymphedema wraps. cleaning woudns with NS, alcohol. more wheeping and swelling per patient, friend states there is more drainage. denies fevers, chills but admits to feeling poorly 2 days ago. Endorses SOB worse than baseline, bloated sensation, orthopnea. Denies fever, chills, N/V/D/C, FALK. states she is compliant with medication. Review of Systems General: Reports: 10 or more systems reviewed and unremarkable except in HPI and below Const: Denies: fever(s) or chills Eyes: Denies: change in vision or blurry vision ENMT: Denies: throat pain, odynophagia or hoarseness Card: Reports: palpitations; Denies: chest pain or dyspnea on exertion Resp: Reports: dyspnea and other (SHERMAN); Denies: productive cough, non-productive cough or wheezing GI: Reports: abdominal pain; Denies: nausea, vomiting, diarrhea or constipation Musc: Denies: neck pain, back pain or joint pain Skin/Breast: Reports: changing lesions, non-healing lesions and lesions; Denies: rash or new lesions Neuro: Denies: headache(s), numbness in extremities or weakness in extremities Psych: Denies: anxiety, depression, suicidal ideation or homicidal ideation Medications/Allergies Home Medications Medication Instructions Recorded Confirmed Last Taken Type albuterol sulfate 90 mcg/actuation 1 puff inhalation QID PRN 04/26/21 01/25/23 02/26/22 Rx aerosol inhaler shortness of breath or wheezing #8.5 grams hydrocodone 5 mg-acetaminophen 325 1 tab PO Q4H PRN pain 5 days #30 04/10/22 01/25/23 05/27/22 20:00 Rx mg tablet tabs aspirin 81 mg capsule 81 mg PO DAILY 05/28/22 01/25/23 01/24/23 History bumetanide 2 mg tablet 2 mg PO BID #180 tabs 06/05/22 01/25/23 01/24/23 Rx carvedilol 6.25 mg tablet 6.25 mg PO BID #180 tabs 06/05/22 01/25/23 01/25/23 Rx metolazone 2.5 mg tablet 2.5 mg PO .every other day #90 tabs 06/05/22 01/25/23 01/23/23 Rx spironolactone 25 mg tablet 25 mg PO DAILY #90 tabs 06/05/22 01/25/23 01/25/23 Rx famotidine 20 mg tablet (Pepcid AC) 20 mg PO DAILY #90 tabs 08/23/22 01/25/23 01/25/23 Rx magnesium L-lactate 84 mg 250 mg PO BID 09/15/22 01/25/23 01/24/23 History tablet,extended release potassium chloride 20 mEq 40 meq PO DAILY 09/15/22 01/25/23 01/24/23 History tablet,extended release calamine 3 %-zinc oxide 3 %-gauze #10 ea 09/20/22 01/25/23 Unknown Rx bandage 3 X 10 yard (Unna Boot Zinc-Calamine) atorvastatin 80 mg tablet 80 mg PO QPM 01/25/23 01/25/23 01/24/23 History warfarin 4 mg tablet See Rx Instructions .Route .COMPLEX 01/25/23 01/25/23 01/24/23 History Allergies Allergy/AdvReac Type Severity Reaction Status Date / Time nkda Allergy Unknown Unknown Uncoded 01/24/23 13:14 PFSH Acute PFSH: Medical History (Updated 01/25/23 @ 14:24 by Elder Rubin MD) Abdominal distention Acute hyponatremia Carotid artery stenosis Carotid disease, bilateral Cellulitis Chest pain CHF (congestive heart failure), NYHA class III Diastolic heart failure with EF of 55 to 60% COPD (chronic obstructive pulmonary disease) Dyslipidemia Femoral artery occlusion Hypertension Lymphedema of both lower extremities PAD (peripheral artery disease) Peripheral edema Peripheral vascular disease Respiratory failure Smoker SOB (shortness of breath) Superficial femoral artery occlusion TIA (transient ischemic attack) Uncontrolled hypertension Venous stasis dermatitis of right lower extremity Surgical History S/P peripheral artery angioplasty with stent placement S/P vascular surgery Status post carotid surgery (~2012) bilateral Family History Other CAD (coronary artery disease) Social History Smoking and tobacco status: former smoker Quit status (tobacco): considering quitting Second hand smoke exposure: Yes Alcohol intake: never Substance/Drug Use: never Caregiver/support person: Yes Lives independently: Yes Household members: spouse Marital status: service: No Current occupational status: retired Current gender identity: Female Vitals/I&O/Wt Last Vital Signs Temp 98.3 F 01/25/23 09:56 Pulse 114 H 01/25/23 12:25 Resp 16 01/25/23 12:25 BP 139/89 01/25/23 12:25 Pulse Ox 96 01/25/23 12:25 O2 Del Method Nasal Cannula 01/25/23 09:56 O2 Flow Rate 2 01/25/23 09:56 01/24/23 01/25/23 01/25/23 22:59 06:59 14:59 Intake Total 15.75 / 15.75 Balance 15.75 / 15.75 Physical Exam Narrative: General: AOx3, no acute distress, laying in bed, 3L NC (2L baseline) psych: appropriate mood and affect. good judgment and insight. No suicidal or homicidal ideation. AOx3 Head: atraumatic, normocephalic, no mass/lesions Ears: clear external auditory canals Eyes: conjunctiva clear w/o exudate or hemorrhage. non-icteric, EOM intact, PERRLA. no signs of nystagmus Nose: nasal mucosa pink, septum midline Oropharynx: good dentition Neck: FROM, no lymphadenopathy Chest: atraumatic, symmetrical CVD: afib rvr, normal S1 and S2, S3 present, 2/6 CHAD at LSB, 2+ pulse x 4 extremities. mild JVD, no carotid bruit. Lungs: bibasilar crackles (L>R). no rhonchi, wheezing, rales. Abdomen: mild sabi-umbilical ttp, mild distension, soft, NABS. No hepatosplenomegaly, no mass. umbilicus midline w/o herniation : not done on todays examination Rectal: not done on todays examination Spine: no visible deformities, FROM, 5/5 strength Extremities: FROM and 5/5 strength in BUE and BLE. -bilateral legs with new wound care wraps. visible lymphedema, 2+ pitting edema bilat legs R>L up to knees. some purulence visible under bandage. NVI, wiggles toes Neuro: CNII-XII grossly intact. No atrophy no sensory abnormalities. Skin:? as above. Data 01/25/23 09:48 01/25/23 10:08 A&P Assessment and plan (1) Atrial fibrillation with RVR: (2) Wound, open, leg: (3) PAD (peripheral artery disease): (4) Hypertension: (5) CHF (congestive heart failure), NYHA class III: (6) Warfarin anticoagulation: (7) Cellulitis: (8) SOB (shortness of breath): (9) Carotid disease, bilateral: (10) COPD (chronic obstructive pulmonary disease): (11) CHF exacerbation: (12) KATHI (acute kidney injury): (13) Leukocytosis: (14) Hyponatremia: (15) Hyperkalemia: Plan Afib RVR -on coumadin, INR thereaputic -no conversion in ED -started on cardizem gtt. HR between 95 and 120 in CSU -once stable will convert to PO cardizem HFpEF exacerbation -CXR: cardiomegaly, no signs of PNA -will get ECHO, last conducted in 2020 showed EF 55-60/5 with G1DD -lasix 40mg IVP x 1 in ED, will administer once more once odonnell in place -continue metolazone 2.5mg q48hrs, Bumex 2mg BID at home (will hold and restart in AM) -strict I's and O's -fluid restriction 1.5L Sepsis? -Leukocytosis -awaiting procal, Cx, lactic acid -unclear etiology - likely from worsening chronic wound on bilateral LE 2/2 severe PAD -will get BCx, Wound Cx, -to start on empiric Abx, Vanc and zosyn. If KATHI worsens will switch zosyn for cefepime. Chronic wound bilateral legs -Past culture history consistent with resistant Pseudomonas sensitive to Zosyn. -will check MRSA swab -start vanc, zosyn -consult wound care. KATIH -monitor in AM. likely 2/2 HFpEF exacerbation 2/2 Afib RVR -reperfusion 2/2 rate control. -will attain fluids through Abx hyperkalemia -monitor in AM hyponatremia PAD s/p bilat carotid endarterectomy (2012) and fem-pop bypass Anemia COPD Tobacco use disorder Admit to CSU In ED: Cardizem IVP x 1 (failed), started on cardizem gtt, lasix 40mg IVP Cardizem gtt protocol blood work: lactic acid, BNP, CRP Imaging: ECHO Cultures: Blood, urine, Wound AM labs: CBC, CMP, BNP, lactic acid consult wound care PT/OT CM DVT prophylaxis: Continue coumadin PUD prophylaxis: protonix Attestations Medical Necessity Statement*: patient will require 2 overnight stays for Afib RVR, HFpEF exacerbation, sepsis? Coding Level of Care Code Acute Code for [facility] Fwd Diagnoses Atrial fibrillation with RVR I48.91 Wound, open, leg S81.809A PAD (peripheral artery disease) I73.9 Hypertension I10 CHF (congestive heart failure), NYHA class III I50.9 Warfarin anticoagulation Z79.01 Cellulitis L03.90 SOB (shortness of breath) R06.02 Carotid disease, bilateral I77.9 COPD (chronic obstructive pulmonary disease) J44.9 CHF exacerbation I50.9 KATHI (acute kidney injury) N17.9 Leukocytosis D72.829 Hyponatremia E87.1 Hyperkalemia E87.5
[2023-01-25 14:55] LABS: NT Pro B Type Natriuretic Pept 2856 pg/mL (0-125); Procalcitonin 0.73 ng/mL (0-0.5)
--- NOTE | 2023-01-25 15:29 | ECG_ITS ---
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 Measurements Intervals [place] Rate: 94 P: 0 FL: 0 QRS: 56 QRSD: 72 T: 66 QT: 317 QTc: 396 Interpretive Statements ATRIAL FIBRILLATION LOW QRS VOLTAGE IN PRECORDIAL LEADS [QRS DEFLECTION < 1.0 mV IN CHEST LEADS] SEPTAL MYOCARDIAL INFARCTION , OF INDETERMINATE AGE [40+ ms Q WAVE IN V1/V2] Compared to ECG 01/25/2023 11:54:41 No significant changes Electronically Signed On 01-25-2023 17:04:28 CDT by Itz Hale M.D. [id number]
[2023-01-25 16:00] LABS: Add Urine Microscopic? NO; Charge for UA Resulting for Rev
[2023-01-25 16:19] LABS: Lactic Sepsis W/Reflex 1.5 mmol/L (0.5-2.2)
[2023-01-25 16:22] LABS: Troponin 5 6HR 13.84 ng/L (0-10)
[2023-01-25 16:23] LABS: Troponin 5 6HR Delta -2.16 ng/L (0-12)
[2023-01-25] MEDS: vancomycin 1,000 MG in sodium chloride 0.9% 250 ML 250 MG IV (16:31)
[2023-01-25 16:32] LABS: Bilirubin Urine Neg (Negative); Blood Urine Neg (Negative); Glucose Urine UA Norm (Normal); Ketones Urine Negative (Negative); Leukocyte Esterase Urine Negative (Negative); Nitrate Urine Negative (Negative); Protein Urine Neg (Negative); Specific Gravity, Urine 1.015 (1.005-1.030); Urine Appearance Clear (CLEAR); Urine Color Yellow (Yellow); Urobilinogen Urine Neg (Negative); pH Urine 5 (5-7)
[2023-01-25] MEDS: dilTIAZem 100 MG in sodium chloride 0.9% (add-van) 100 ML 12.5 MG IV (17:24)
[2023-01-25] MEDS: magnesium lactate 84 mg Tablet 250 MG PO (17:24)
[2023-01-25] MEDS: carvedilol 6.25 mg Tablet PO (17:25)
[2023-01-25] MEDS: atorvastatin 40 mg Tablet 80 MG PO (17:25)
[2023-01-25] MEDS: warfarin 4 mg Tablet PO (17:31)
[2023-01-25] MEDS: piperacillin-tazobactam 3.375 GM in sodium chloride 0.9% (plus) 50 ML IV (19:15)
[2023-01-25] MEDS: metOLazone 5 MG Tablet 2.5 MG PO (20:25)
[2023-01-25] MEDS: HYDROcodone-acetaminophen 5-325 mg Tablet 1 TAB PO (20:34)
[2023-01-26] VITALS (33 sets, daily range): BP systolic 90–130; BP diastolic 51–74; PULSE 81–119; RESP 12–25; TEMP 36.3–36.4; O2SAT 76–96
[2023-01-26] MEDS: HYDROcodone-acetaminophen 5-325 mg Tablet 1 TAB PO ×2 (00:29→06:35)
[2023-01-26] MEDS: piperacillin-tazobactam 3.375 GM in sodium chloride 0.9% (plus) 50 ML IV ×3 (00:30→17:38)
[2023-01-26 04:36] LABS: Basophils # 0.1 10^3/uL (0.0-0.1); Basophils % 0.3 %; Eosinophils # 0.1 10^3/uL (0.0-0.8); Eosinophils % 0.5 %; Hematocrit 30.4 % (37.0-47.0); Hemoglobin 9.5 g/dL (11.5-15.3); Mean Corpuscular HGB Conc 31.3 g/dL (30.0-36.0); Mean Corpuscular Hemoglobin 28.5 pg (28.0-34.0); Mean Corpuscular Volume 91.3 fl (81-99); Mean Platelet Volume 11.3 fL (7.4-10.4); Monocytes # 1.4 10^3/uL (0.2-0.9); Monocytes % 5.4 %; Neutrophils # 22.17 10^3/uL (1.8-7.7); Neutrophils % 88.7 %; Nucleated Red Blood Cells % 0 %; Platelet Count 254 10^3/cmm (130-400); Red Blood Count 3.33 10^6/uL (4.1-5.3); Red Cell Distribution Width 15.9 % (12.1-15.1)
[2023-01-26 05:03] LABS: Alanine Aminotransferase 20 U/L (0-33); Albumin Level 2.9 g/dL (3.5-5.2); Alkaline Phosphatase 156 U/L (35-105); Aspartate Amino Transferase 22 U/L (0-32); Blood Urea Nitrogen 55 mg/dL (8-23); Calcium 8.5 mg/dL (8.5-10.5); Carbon Dioxide 25 mmol/L (22-29); Chloride 91 mmol/L (98-107); Globulin 3.5 g/dL (1.3-4.6); Glucose 97 mg/dL (65-115); Magnesium 2.1 mg/dL (1.7-2.3); Osmolality Calculated 279 mOsm/kg (285-295); Phosphorus 5.6 mg/dL (2.5-4.5); Sodium 127 mmol/L (136-145); Total Bilirubin 0.7 mg/dL (0.15-1.2); Total Protein 6.4 g/dL (6.6-8.7)
[2023-01-26] MEDS: dilTIAZem 100 MG in sodium chloride 0.9% (add-van) 100 ML IV (05:18)
--- NOTE | 2023-01-26 07:44 | PM.PN ---
Subjective Subjective: seen at bedside this AM. pt states she feels improved. eating well. breathing improved. less palpitations Denies SOB, N/V/D/C, abd pain, CP, Vitals/I&O/Wt Last Vital Signs Temp 97.5 F L 01/26/23 07:33 Pulse 91 01/26/23 07:33 Resp 19 H 01/26/23 07:33 BP 91/71 01/26/23 07:33 Pulse Ox 92 01/26/23 07:33 O2 Del Method Nasal Cannula 01/26/23 07:33 O2 Flow Rate 3 01/25/23 20:00 01/25/23 01/26/23 01/26/23 22:59 06:59 14:59 Intake Total 554.792 / 570.542 750.0 / 1320.542 Output Total 425 / 425 350 / 775 Balance 129.792 / 145.542 400.0 / 545.542 Weight last 48 hrs Weight 200 lb 14.4 oz Weight 200 lb 9 oz Weight 199 lb Physical Exam Narrative: General: AOx3, no acute distress, laying in bed, 3L NC (2L baseline) Eyes: conjunctiva clear w/o exudate or hemorrhage. non-icteric, EOM intact, PERRLA. no signs of nystagmus Nose: nasal mucosa pink, septum midline Oropharynx: good dentition Neck: FROM, no lymphadenopathy Chest: atraumatic, symmetrical CVD: afib rvr, normal S1 and S2, S3 present, 2/6 CHAD at LSB, 2+ pulse x 4 extremities. mild JVD, no carotid bruit. Lungs: clear to auscultation, no crackles. no rhonchi, wheezing, rales. Abdomen: mild sabi-umbilical ttp, mild distension, soft, NABS. No hepatosplenomegaly, no mass. umbilicus midline w/o herniation : not done on todays examination Rectal: not done on todays examination Spine: no visible deformities, FROM, 5/5 strength Extremities: FROM and 5/5 strength in BUE and BLE. -bilateral legs with 2+ edema, lymphedema, weeping with clear discharge, no open wounds or areas to attain culture. ttp mid calf distally. NVI. , wiggles toes Neuro: CNII-XII grossly intact. No atrophy no sensory abnormalities. Skin:? as above. Urinary Catheter Management: Odonnell: Cath Placed During This Visit: yes Reason for Continuing Indwelling Catheter: Accurate Measurement of Urinary Output in Critically Ill Patients Urinary Catheter Date of Insertion: 01/25/23 Urinary Catheter Time of Insertion: 15:00 Data 01/26/23 03:10 01/26/23 03:10 Micro: Microbiology 01/25/23 15:45 Blood Culture - Preliminary Blood SPECIMEN COLLECTED 01/25/23 15:40 Blood Culture - Preliminary Blood SPECIMEN COLLECTED A&P Assessment and plan (1) Atrial fibrillation with RVR: (2) Wound, open, leg: (3) PAD (peripheral artery disease): (4) Hypertension: (5) CHF (congestive heart failure), NYHA class III: (6) Warfarin anticoagulation: (7) Cellulitis: (8) SOB (shortness of breath): (9) Carotid disease, bilateral: (10) COPD (chronic obstructive pulmonary disease): (11) CHF exacerbation: (12) KATHI (acute kidney injury): (13) Leukocytosis: (14) Hyponatremia: Plan Afib RVR -on coumadin, INR thereaputic -no conversion in ED -cardizem gtt, will wean down and either change to cardizem PO vs Lopressor PO pending ECHO findings. HR appropriate since on drip -BP has been soft HFpEF exacerbation -CXR: cardiomegaly, no signs of PNA -will get ECHO, last conducted in 2020 showed EF 55-60/5 with G1DD -s/p lasix 40mg IVP x 2, odonnell in place. no need for further diuresis. -HOLDING home spironolactone metolazone and bumex 2/2 hypotension in CSU. BP in 90's/60's. re-eval later this AM. -BNP 2856 on admission -strict I's and O's -fluid restriction 1.5L Sepsis? -Leukocytosis improving -procal elevated, lactic acid 1.5 -unclear etiology - likely from worsening chronic wound on bilateral LE 2/2 severe PAD -will get BCx, Wound Cx, -Empiric Abx, Vanc and zosyn. If KATHI worsens will switch zosyn for cefepime. Chronic wound bilateral legs -Past culture history consistent with resistant Pseudomonas sensitive to Zosyn. -will check MRSA swab -start vanc, zosyn -consult wound care. KATHI -likely 2/2 HFpEF exacerbation 2/2 Afib RVR -improving -will attain fluids through Abx hyponatremia PAD s/p bilat carotid endarterectomy (2012) and fem-pop bypass Anemia COPD Tobacco use disorder Plan -titrate down cardizem drip and convert to PO today -monitor BP -monitor Cx. continue Abx -pending ECHO -AM labs -wound care consult DVT prophylaxis: Continue coumadin PUD prophylaxis: protonix Attestations Medical Necessity Statement*: patient will require 2 overnight stays for Afib RVR, HFpEF exacerbation, sepsis? Coding Level of Care Code 86672 Diagnoses Atrial fibrillation with RVR I48.91 Wound, open, leg S81.809A PAD (peripheral artery disease) I73.9 Hypertension I10 CHF (congestive heart failure), NYHA class III I50.9 Warfarin anticoagulation Z79.01 Cellulitis L03.90 SOB (shortness of breath) R06.02 Carotid disease, bilateral I77.9 COPD (chronic obstructive pulmonary disease) J44.9 CHF exacerbation I50.9 KATHI (acute kidney injury) N17.9 Leukocytosis D72.829 Hyponatremia E87.1
[2023-01-26] MEDS: magnesium lactate 84 mg Tablet 250 MG PO ×2 (09:25→17:39)
[2023-01-26] MEDS: pantoprazole DR 40 mg Tablet PO (09:25)
[2023-01-26] MEDS: aspirin 81 mg Chew Tablet PO (09:25)
[2023-01-26] MEDS: carvedilol 6.25 mg Tablet PO ×2 (09:26→17:39)
[2023-01-26] MEDS: dilTIAZem 30 mg Tablet PO ×3 (09:33→20:17)
--- NOTE | 2023-01-26 10:07 | PC.NURSE ---
spoke with dr clark re:bp and meds due this morning.also potassium supplement.he ordered to not give potassium (k+ 5.0).also he ordered to hold bumex this morning and wait until around 11:00..ses what bp is and perhaps give spironolactone.And to try and wean off cardizem..he will add po cardizem to med regime.
--- NOTE | 2023-01-26 11:53 | PC.NURSE ---
conferred with dr clark re:spironolactone dose.he ordered to hold today's dose due to cont.low bp's
--- NOTE | 2023-01-26 13:38 | USCV_ITS ---
Pressley Nimo Age: 72 Gender: F : 1950 Exam Date: 01/26/2023 10:59 Ordering Phys: Elder Rubin MD Technologist: QUINN Exam Location: [facility] Indication: hf BP: / HR: 92 Rhythm: Sinus Technical Quality: Adequate MEASUREMENTS (Male / Female) Normal Values 2D ECHO LV Diastolic Diameter PLAX 3.5 cm 4.2 - 5.9 / 3.9 - 5.3 cm LV Systolic Diameter PLAX 3.0 cm IVS Diastolic Thickness 0.6 cm 0.6 - 1.0 / 0.6 - 0.9 cm IVS Systolic Thickness 0.9 cm LVPW Diastolic Thickness 0.6 cm 0.6 - 1.0 / 0.6 - 0.9 cm LVPW Systolic Thickness 0.9 cm LVOT Diameter 2.0 cm LV Ejection Fraction 2D Teich 34.6 % LV Ejection Fraction MOD 2C 41.1 % LV Ejection Fraction 2C AL 42.2 % LA Diameter 4.1 cm IVC Diameter 2.5 cm M-MODE Aortic Annulus Diameter 2.9 cm LA Ao Ratio MM 1.6 MV E Point Septal Separation 0.1 cm DOPPLER AV Peak Velocity 83.0 cm/s LVOT Peak Velocity 78.0 cm/s AV Area Cont Eq vti 3.5 cm squared AV Area Cont Eq pk 3.0 cm squared MV Area PHT 3.3 cm squared Mitral E to A Ratio 3.0 MV E' Velocity 71.5 cm/s Mitral E to MV E' Ratio 13.4 Mitral E to LV E' Lateral Ratio 13.1 Mitral E to LV E' Septal Ratio 14.0 TV Peak E Velocity 58.0 cm/s PV Peak Velocity 85.0 cm/s FINDINGS Left Ventricle Normal left ventricular size, systolic function and wall thickness, with no regional wall motion abnormalities. Left ventricular ejection fraction is estimated at 60 %. Rhythm precludes evaluation of diastolic function. Right Ventricle Normal right ventricular size and systolic function. Right Atrium Normal right atrial size. Left Atrium Moderately increased left atrial size. Mitral Valve Mild mitral annular calcification. Mildly thickened mitral valve. No mitral valve stenosis. No significant mitral valve regurgitation. Aortic Valve Thickened aortic valve. No aortic valve stenosis. No aortic valve regurgitation. Tricuspid Valve Structurally normal tricuspid valve. No tricuspid valve stenosis. Trace tricuspid valve regurgitation. Pulmonic Valve Pulmonic valve not well visualized. Pericardium No pericardial effusion. Aorta Normal size aortic root and proximal ascending aorta. IVC Dilated IVC with normal respiratory variation. CONCLUSIONS 1. Normal left ventricular size, systolic function and wall thickness, with no regional wall motion abnormalities. Left ventricular ejection fraction is estimated at 60 %. 2. When compared to study dated 05/27/2021; there may not have been any significant change. Yvonne Santamaria MD (Electronically Signed) Final Date: 27 January 2023 13:03 S
[2023-01-26] MEDS: warfarin 4 mg Tablet PO (14:32)
[2023-01-26] MEDS: vancomycin 1,000 MG in sodium chloride 0.9% 250 ML 250 MG IV (15:55)
--- NOTE | 2023-01-26 16:42 | PC.NURSE ---
Addendum entered by Chiqui Ledezma RN 01/26/23 16:44: he has ordered to hold evening dose of bumex Original Note: dr clark notified of currrent bp's (improved) and u.o. 400 cc so far this shift..and that pt has developed hematuria
[2023-01-26] MEDS: atorvastatin 40 mg Tablet 80 MG PO (17:39)
[2023-01-26] MEDS: ipratropium-albuterol 3 mL Neb INHALATION ×2 (18:09→22:02)
[2023-01-26] MEDS: ondansetron 2 mg/ML SDV 2 mL 4 MG IVP (18:15)
[2023-01-27] VITALS (27 sets, daily range): BP systolic 84–124; BP diastolic 50–78; PULSE 68–104; RESP 13–28; TEMP 36.4–37.1; O2SAT 69–95
[2023-01-27] MEDS: piperacillin-tazobactam 3.375 GM in sodium chloride 0.9% (plus) 50 ML IV ×3 (01:52→17:26)
[2023-01-27] MEDS: dilTIAZem 30 mg Tablet PO ×4 (01:53→21:33)
[2023-01-27] MEDS: HYDROcodone-acetaminophen 5-325 mg Tablet 1 TAB PO (01:55)
[2023-01-27 05:26] LABS: Alanine Aminotransferase 22 U/L (0-33); Albumin Level 3.1 g/dL (3.5-5.2); Alkaline Phosphatase 152 U/L (35-105); Anion Gap 16.7 (5-19); Aspartate Amino Transferase 25 U/L (0-32); Blood Urea Nitrogen 58 mg/dL (8-23); Calcium 8.5 mg/dL (8.5-10.5); Carbon Dioxide 25 mmol/L (22-29); Chloride 89 mmol/L (98-107); Globulin 3.2 g/dL (1.3-4.6); Glucose 93 mg/dL (65-115); Osmolality Calculated 276 mOsm/kg (285-295); Potassium 5.7 mmol/L (3.5-5.1); Sodium 125 mmol/L (136-145); Total Bilirubin 0.5 mg/dL (0.15-1.2); Total Protein 6.3 g/dL (6.6-8.7)
[2023-01-27 06:09] LABS: Basophils # 0.1 10^3/uL (0.0-0.1); Basophils % 0.4 %; Eosinophils # 0.5 10^3/uL (0.0-0.8); Eosinophils % 2.3 %; Hematocrit 32.1 % (37.0-47.0); Hemoglobin 9.8 g/dL (11.5-15.3); Lymphocytes # 0.8 10^3/uL (0.8-4.8); Lymphocytes % 3.9 %; Mean Corpuscular HGB Conc 30.5 g/dL (30.0-36.0); Mean Corpuscular Hemoglobin 27.8 pg (28.0-34.0); Mean Corpuscular Volume 90.9 fl (81-99); Mean Platelet Volume 10.5 fL (7.4-10.4); Monocytes # 1.2 10^3/uL (0.2-0.9); Neutrophils # 17.18 10^3/uL (1.8-7.7); Neutrophils % 86.1 %; Nucleated Red Blood Cells % 0 %; Platelet Count 273 10^3/cmm (130-400); Red Blood Count 3.53 10^6/uL (4.1-5.3); Red Cell Distribution Width 15.8 % (12.1-15.1); White Blood Count 19.9 10^3/uL (4.0-10.0)
[2023-01-27] MEDS: ipratropium-albuterol 3 mL Neb INHALATION ×2 (08:12→21:47)
[2023-01-27] MEDS: pantoprazole DR 40 mg Tablet PO (09:16)
[2023-01-27] MEDS: aspirin 81 mg Chew Tablet PO (09:16)
[2023-01-27] MEDS: magnesium lactate 84 mg Tablet 250 MG PO ×2 (09:17→17:27)
[2023-01-27] MEDS: carvedilol 6.25 mg Tablet PO ×2 (10:55→17:27)
--- NOTE | 2023-01-27 13:06 | XRR_ITS ---
PROCEDURE INFORMATION: Exam: XR Chest Exam date and time: 01/27/2023 1:17 PM Age: 72 years old Clinical indication: Other: Low o2; Additional info: Low o2 sat TECHNIQUE: Imaging protocol: Radiologic exam of the chest. Views: 1 view. COMPARISON: CR XR chest 1V portable [id number] 01/25/2023 10:12 AM FINDINGS: Lungs: Lung volumes are somewhat decreased. Interval development of left basilar consolidation likely in part secondary to subsegmental atelectasis with developing pneumonia to be excluded. Minor atelectatic changes right mid lung zone developed from previous exam. Pleural spaces: Unremarkable. No pleural effusion. No pneumothorax. Heart/Mediastinum: Heart is enlarged, unchanged. There is pulmonary vascular distribution indicating elevated central venous pressure. Bones/joints: Evidence of 4 prior vertebroplasty lower thoracic spine. No acute bony abnormalities. XR/XR chest 1V portable [id number] IMPRESSION: Cardiomegaly with developing left basilar consolidation that may represent combination of atelectasis and pneumonia.
--- NOTE | 2023-01-27 13:22 | PM.PN ---
Subjective Subjective: Seen at bedside this AM. pt on 5L NC (previously 3L yday). state she is overall feeling improved but nose is congested. Legs have improved. deneis abd pain, CP, palpitations. having some SOB. overnight BP has improved; however early this AM it dropped back to the 90's/60's. difficulty getting 02 sat. Medications: Reviewed: Yes Vitals/I&O/Wt Last Vital Signs Temp 97.6 F 01/27/23 04:00 Pulse 99 01/27/23 12:00 Resp 18 01/27/23 12:00 BP 94/65 01/27/23 12:00 Pulse Ox 91 01/27/23 12:00 O2 Del Method Nasal Cannula 01/27/23 12:00 O2 Flow Rate 3 01/27/23 08:00 01/26/23 01/27/23 01/27/23 22:59 06:59 14:59 Intake Total 420 / 810.00 300 / 1110.00 960 / 960 Output Total 400 / 400 300 / 700 Balance 20 / 410.00 0 / 410.00 960 / 960 Weight last 48 hrs Weight 200 lb 6 oz Weight 200 lb 6 oz Weight 200 lb 14.4 oz Weight 200 lb 9 oz Weight 199 lb Physical Exam Narrative: General: AOx3, no acute distress, laying in bed, 5L NC (2L baseline), head sp02 bandana on. Eyes: conjunctiva clear w/o exudate or hemorrhage. non-icteric, EOM intact, PERRLA. no signs of nystagmus Nose: nasal mucosa pink, septum midline Oropharynx: good dentition Neck: FROM, no lymphadenopathy Chest: atraumatic, symmetrical CVD: afib rvr, normal S1 and S2, no S3, 2/6 CHAD at LSB, 2+ pulse x 4 extremities. mild JVD, no carotid bruit. Lungs: bibasilar crackles present. no rhonchi, wheezing, rales. Abdomen: mild sabi-umbilical ttp, mild distension, soft, NABS. No hepatosplenomegaly, Extremities: FROM and 5/5 strength in BUE and BLE. -bilateral legs with 2+ edema, lymphedema, weeping with clear discharge, no open wounds or areas to attain culture. ttp mid calf distally. NVI. wiggles toes Neuro: NVI. Skin:? as above. Urinary Catheter Management: Monsalve: Cath Placed During This Visit: yes Reason for Continuing Indwelling Catheter: Acute Urinary Retention or Obstruction Urinary Catheter Date of Insertion: 01/25/23 Urinary Catheter Time of Insertion: 15:00 Data 01/27/23 05:55 01/27/23 04:11 Micro: Microbiology 01/25/23 15:02 Wound Culture - Preliminary Leg - Wound Gram Negative Rods Gram Negative Rods#2 Corynebacterium species 01/25/23 15:45 Blood Culture - Preliminary Blood NEGATIVE TO DATE 01/25/23 15:40 Blood Culture - Preliminary Blood NEGATIVE TO DATE A&P Assessment and plan (1) Atrial fibrillation with RVR: (2) Wound, open, leg: (3) PAD (peripheral artery disease): (4) Hypertension: (5) CHF (congestive heart failure), NYHA class III: (6) Warfarin anticoagulation: (7) Cellulitis: (8) SOB (shortness of breath): (9) Carotid disease, bilateral: (10) COPD (chronic obstructive pulmonary disease): (11) CHF exacerbation: (12) KATHI (acute kidney injury): (13) Leukocytosis: (14) Hyponatremia: (15) Hyperkalemia: Plan Afib RVR -on coumadin, INR [place] -no conversion in ED -tolerating cardizem 30mg QID well -blood presssure is soft. monitoring closely HFpEF exacerbation -CXR: cardiomegaly, no signs of PNA -ECHO 01/26/23: normal L ventricle, LVEF of 60%. G1 diastolic dysfunction. no changes from 05/27/21 study -HOLDING home spironolactone metolazone and bumex 2/2 hypotension in CSU. BP in 90's/60's. re-eval later this AM. -BNP 2856 on admission -strict I's and O's -fluid restriction 1.5L Hypotension -will hold giving fluids 2/2 crackles on examination -will give albumin and if BP is appropriate will then give some lasix to help with crackles, increase oxygen need and hyperkalemia Sepsis? -Leukocytosis improving -procal elevated, lactic acid 1.5 -unclear etiology - likely from worsening chronic wound on bilateral LE 2/2 severe PAD -will get BCx, Wound Cx, -Empiric Abx, Vanc and zosyn. If KATHI worsens will switch zosyn for cefepime. KATHI -likely 2/2 HFpEF exacerbation 2/2 Afib RVR -improving -will attain fluids through Abx Hyponatreamia Hyperkalemia -5.7 this AM, will give kayexalate. unable to give lasix 2/2 low BP. unable to give insulin due to glucose of 93. Chronic wound bilateral legs -Past culture history consistent with resistant Pseudomonas sensitive to Zosyn. -will check MRSA swab -start vanc, zosyn -consult wound care. PAD s/p bilat carotid endarterectomy (2012) and fem-pop bypass Anemia COPD Tobacco use disorder Plan -continue cardizem PO QID, monitor BP. may need to change to digoxin -will give albumin IV x 1. if BP improved will give lasix -kayexalate x 1 given for hyperkalemia. desire lasix (hypotensive) and insulin (euglycemic) but will hold off use at this time -monitor BP, HR, oxygen requirements -ECHO did not show any new abnormalities -pending CXR -AM labs -wound care consult DVT prophylaxis: Continue coumadin PUD prophylaxis: protonix Attestations Medical Necessity Statement*: will require 2 overnight stays for HFpEF exacerbation, Afib RVR, hypotension, hyperkalemia Coding Level of Care Code 94539 Diagnoses Atrial fibrillation with RVR I48.91 Wound, open, leg S81.809A PAD (peripheral artery disease) I73.9 Hypertension I10 CHF (congestive heart failure), NYHA class III I50.9 Warfarin anticoagulation Z79.01 Cellulitis L03.90 SOB (shortness of breath) R06.02 Carotid disease, bilateral I77.9 COPD (chronic obstructive pulmonary disease) J44.9 CHF exacerbation I50.9 KATHI (acute kidney injury) N17.9 Leukocytosis D72.829 Hyponatremia E87.1 Hyperkalemia E87.5
[2023-01-27] MEDS: albumin 25 G/100 ML BAG 60 G IV (13:56)
[2023-01-27] MEDS: sodium polystyrene sulfonate 15 gm/60 mL Btl PO (13:56)
[2023-01-27] MEDS: acetaminophen 325 mg Tablet 650 MG PO (13:56)
[2023-01-27] MEDS: ondansetron 2 mg/ML SDV 2 mL 4 MG IVP (13:56)
[2023-01-27] MEDS: warfarin 4 mg Tablet PO (13:57)
[2023-01-27] MEDS: vancomycin 1,000 MG in sodium chloride 0.9% 250 ML 250 MG IV (15:55)
[2023-01-27] MEDS: atorvastatin 40 mg Tablet 80 MG PO (17:27)
[2023-01-28] VITALS (32 sets, daily range): BP systolic 116–132; BP diastolic 72–85; PULSE 91–128; RESP 15–29; TEMP 36.6; O2SAT 77–95
[2023-01-28] MEDS: piperacillin-tazobactam 3.375 GM in sodium chloride 0.9% (plus) 50 ML IV ×3 (01:29→18:18)
[2023-01-28 02:40] LABS: Basophils # 0.1 10^3/uL (0.0-0.1); Basophils % 0.4 %; Eosinophils # 0.4 10^3/uL (0.0-0.8); Eosinophils % 1.9 %; Hematocrit 30.7 % (37.0-47.0); Hemoglobin 9.3 g/dL (11.5-15.3); Lymphocytes # 0.9 10^3/uL (0.8-4.8); Lymphocytes % 4.6 %; Mean Corpuscular HGB Conc 30.3 g/dL (30.0-36.0); Mean Corpuscular Hemoglobin 27.4 pg (28.0-34.0); Mean Corpuscular Volume 90.6 fl (81-99); Mean Platelet Volume 9.9 fL (7.4-10.4); Monocytes # 1.3 10^3/uL (0.2-0.9); Monocytes % 7.2 %; Neutrophils # 15.73 10^3/uL (1.8-7.7); Neutrophils % 84.8 %; Nucleated Red Blood Cells % 0.1 %; Platelet Count 263 10^3/cmm (130-400); Red Blood Count 3.39 10^6/uL (4.1-5.3); Red Cell Distribution Width 15.6 % (12.1-15.1); White Blood Count 18.6 10^3/uL (4.0-10.0)
[2023-01-28 02:51] LABS: INR 4.75 (0.8-1.2)
[2023-01-28 02:56] LABS: Alanine Aminotransferase 22 U/L (0-33); Albumin Level 3.2 g/dL (3.5-5.2); Alkaline Phosphatase 164 U/L (35-105); Anion Gap 13.4 (5-19); Aspartate Amino Transferase 28 U/L (0-32); Blood Urea Nitrogen 60 mg/dL (8-23); Calcium 8.4 mg/dL (8.5-10.5); Carbon Dioxide 28 mmol/L (22-29); Chloride 89 mmol/L (98-107); Globulin 3.5 g/dL (1.3-4.6); Glucose 98 mg/dL (65-115); Osmolality Calculated 277 mOsm/kg (285-295); Potassium 5.4 mmol/L (3.5-5.1); Sodium 125 mmol/L (136-145); Total Bilirubin 0.6 mg/dL (0.15-1.2); Total Protein 6.7 g/dL (6.6-8.7)
[2023-01-28] MEDS: dilTIAZem 30 mg Tablet PO ×2 (04:08→09:16)
[2023-01-28] MEDS: ipratropium-albuterol 3 mL Neb INHALATION (08:06)
--- NOTE | 2023-01-28 08:30 | PC.SOCIAL ---
Pg 2 IMM Explained to pt Pg 2 IMM. No questions voiced. Provided pt a copy. Initialed, dated, & timed a copy & placed in chart.
[2023-01-28] MEDS: carvedilol 6.25 mg Tablet PO (09:16)
[2023-01-28] MEDS: aspirin 81 mg Chew Tablet PO (09:16)
[2023-01-28] MEDS: pantoprazole DR 40 mg Tablet PO (09:16)
[2023-01-28] MEDS: magnesium lactate 84 mg Tablet 252 MG PO ×2 (09:17→18:19)
[2023-01-28] MEDS: fluticasone nasal spray 16gm Btl 2 SPRAY NASAL (09:17)
--- NOTE | 2023-01-28 11:24 | CT_ITS ---
WS: [id number] CT chest wo con [id number] HISTORY: sob TECHNIQUE: Axial imaging performed through the thorax. Coronal and sagittal reformats are submitted. All CT scans at [facility] use at least one of these dose optimization techniques: automated exposure control; mA and/or kV adjustment per patient size (includes targeted exams where dose is mat ched to clinical indication); or iterative reconstruction. CONTRAST: None DLP: 509.81 mGy.cm COMPARISON: Radiographs 01/27/2023. Prior chest CT 05/27/2021 Lungs and central airway: Progression of consolidations and interstitial thickening since 2020 throug hout both lungs. Additional areas of mild groundglass attenuation and hazy attenuation throughout bot h lungs. Compressive atelectasis at the lung bases, RIGHT greater than LEFT. Pleura: Small bilateral pleural effusions, RIGHT greater than LEFT. Heart and pericardium: Moderate atrial enlargement. Mediastinum and felice: Mediastinal and hilar lymph nodes. Lymph nodes are very similar in size and cristobal earance as compared to 2020. There may be slight increase in size since that examination. Probably re active. Vessels: Mild atherosclerosis aorta. No aneurysm. Enlarged pulmonary artery. Chest wall and lower neck: No soft tissue masses. Upper abdomen: Advanced suprarenal abdominal aortic calcifications extending into the mesenteric shantanu ulises. Unenhanced imaging of the liver is negative. No enlargement of the spleen. Negative adrenal gla nds. Low-attenuation mass LEFT kidney upper pole is probably a cyst. Osseous structures: Compression fracture at T10 and T11 with vertebroplasty. New compression fracture since 05/27/2021. CT/CT chest wo con [id number] IMPRESSION: 1. New mild pulmonary edema and possible pneumonitis. 2. Small bilateral pleural effusions, RIGHT greater than LEFT. 3. Compressive atelectasis at the lung bases. 4. Cardiomegaly. 5. Atherosclerosis thoracic and suprarenal abdominal aorta.
[2023-01-28] MEDS: insulin regular-human 10 UNIT in SYRINGE 1 EACH 1000 UNIT IVP (12:21)
[2023-01-28] MEDS: dextrose 50% syringe 50 mL IVP (12:22)
[2023-01-28] MEDS: FUROsemide 10 mg/mL SDV 10mL 60 MG IVP (12:23)
[2023-01-28] MEDS: metOLazone 5 MG Tablet 2.5 MG PO (12:24)
--- NOTE | 2023-01-28 13:09 | P.PN_ITS ---
Subjective Subjective: Hospital course, labs appreciated. On examination patient seems to be in mild respiratory distress. Today morning. With oxime mask at 12 L to maintain saturation over 90%. She states she is feeling a little difficulty to breathe and heaviness in chest. Denies any chest pain, nausea, vomiting, headache. Complaining of bilateral lower limb pain, concerns for severe tenderness in bilateral toes. On review it seems patient's diuretics were withheld yesterday because of hypotension. Vitals reviewed. Heart rate has been trending up and usually running in the 1 teens to 120s. Currently at 100 bpm, A-fib with RVR. Blood work appreciated for white count of 18,000, hemoglobin stable at 9.3, INR of 4.75, sodium of 125, potassium of 5.4, creatinine of 1.4 with a BUN of 60, alkaline phosphatase of 164. Medications: Reviewed: Yes Vitals/I&O/Wt Last Vital Signs Temp 97.8 F 01/28/23 04:00 Pulse 121 H 01/28/23 10:05 Resp 22 H 01/28/23 12:15 BP 124/78 01/28/23 08:00 Pulse Ox 91 01/28/23 12:15 O2 Del Method Oxymask 01/28/23 10:05 O2 Flow Rate 40 01/28/23 12:15 FiO2 50 01/28/23 12:15 01/27/23 01/28/23 01/28/23 22:59 06:59 14:59 Intake Total 880 / 1890 50 / 1940 370.1 / 370.1 Output Total 375 / 375 320 / 695 Balance 505 / 1515 -270 / 1245 370.1 / 370.1 Weight last 48 hrs Weight 94.347 kg Weight 90.889 kg Weight 90.889 kg Physical Exam Narrative: General: AOx3, no acute distress, laying in bed, OxyMask oxygen supplementation Eyes: conjunctiva clear w/o exudate or hemorrhage. non-icteric, EOM intact, PERRLA. no signs of nystagmus Nose: nasal mucosa pink, septum midline Oropharynx: good dentition Neck: FROM, no lymphadenopathy Chest: atraumatic, symmetrical CVD: S1-S2 irregularly irregular, tachycardia, no S3, 2/6 CHAD at LSB, 2+ pulse x 4 extremities. mild JVD, no carotid bruit. JVD mildly elevated Lungs: bibasilar crackles present up to mid chest. no rhonchi, wheezing, rales. Abdomen: mild sabi-umbilical ttp, mild distension, soft, NABS. No hepatosplenomegaly, Extremities: FROM and 5/5 strength in BUE and BLE. -bilateral legs with 2+ edema, lymphedema, weeping with clear discharge, no open wounds or areas to attain culture. ttp mid calf distally. NVI. wiggles toes Neuro: NVI. Skin:? as above. Urinary Catheter Management: Monsalve: Cath Placed During This Visit: yes Reason for Continuing Indwelling Catheter: Accurate Measurement of Urinary Output in Critically Ill Patients Urinary Catheter Date of Insertion: 01/25/23 Urinary Catheter Time of Insertion: 15:00 Data 01/28/23 02:32 01/28/23 02:32 Micro: Microbiology 01/25/23 15:02 Wound Culture - Final Leg - Wound Morganella morganii Proteus mirabilis Corynebacterium species A&P Assessment and plan (1) Respiratory failure with hypoxia: Most likely in setting of acute exacerbation of chronic diastolic congestive heart failure in setting of atrial fibrillation with RVR. Cannot rule out pn eumonia. Patient does have history of COPD as well. Oxygen supplementation keeping saturation over 90%. Switch to high flow nasal cannula for now. Wean accordingly. Pulmicort twice daily, Xopenex, ipratropium every 6 hourly. Restart Lasix 60 mg IV twice daily. Restart metolazone 2.5 mg. Strict input output charting, daily weights. Monsalve catheterization. Fluid restriction up to [address] chest without contrast. Check sputum culture. Concerns for pneumonia. For now continue with IV vanc omycin and Zosyn. Patient has been afebrile so we will hold off on respiratory viral panel for now. (2) Atrial fibrillation with RVR: Heart rate still running on the higher side. Hold off on Coreg given borderline blood pressures. Stop Cardizem. Start on amiodarone drip. Continue with Coumadin with a target INR of 2-3 (3) CHF (congestive heart failure), NYHA class III: Echocardiogram shows an EF of 60% with mild MR. Treatment as above. Qualifiers: Congestive heart failure type: diastolic Congestive heart failure chronicity: acute on chronic Qualified Code(s): I50.33 - Acute on chronic guillen tolic (congestive) heart failure (4) Supratherapeutic INR: Goal INR of 2-3 for A-fib. INR of 4.5. We will consult pharmacy for dosing of warfarin. (5) KATHI (acute kidney injury): Most likely in setting of congestive heart failure. Continue to monitor renal functions daily. Medical treatment patient done for nephrotoxic drugs. Strict input and output charting. Check renal ultrasound. (6) Hyponatremia: Check urine lites, urine creatinine. Most likely hypervolemic hyponatremia. Continue to monitor. (7) Hyperkalemia: Stop oral potassium replacement. D50/10 units of IV insulin. Repeat BMP in evening. Telemetry. (8) Cellulitis: Chronic. Wound culture taken on admission shows Proteus, Moraxella, Corynebacterium. Most likely contaminant. For now continue with IV Zosyn and vancomycin as above. Antibiotics will cover for the culture results. (9) Wound, open, leg: (10) PAD (peripheral artery disease): (11) Hypertension: (12) Warfarin anticoagulation: (13) Carotid disease, bilateral: (14) COPD (chronic obstructive pulmonary disease): (15) CHF exacerbation: (16) Peripheral neuropathy: Most likely in setting of PAD and chronic smoker. Start on Requip 0.5 at bedtime and gabapentin 100 mg 3 times daily. Plan CODE STATUS: DNR/DNI. Regular diet. Protonix for PUD prophylaxis Coumadin will suffice as DVT prophylaxis. Discharge plan: Plan to discharge home with caregiver and home health once medically stable. Awaiting PT evaluation. Attestations 2 Medical Necessity Statement*: Requires further hospitalization for management of acute on chronic diastolic congestive heart failure leading to hypoxic respiratory failure, atrial fibrillation with rapid ventricle response, ongoing KATHI Coding Level of Care Code Critical Care >/= 30 minutes Critical care time (in minutes): 60 The high probability of a clinically significant, sudden or life threatening deterioration, as referenced in this documentation, required my full and direct attention, intervention and personal management. The critical care time shown is in addition to time spent performing any reported separately billable procedures and includes the following: [x] Data and vital sign review and interpretation [x ] Patient assessment, examination and intervention [x] Medication orders and m anagement [x] Patient/Family updates as able [x] Care Coordination and Documentation. Diagnoses Respiratory failure with hypoxia J96.91 Atrial fibrillation with RVR I48.91 CHF (congestive heart failure), NYHA class III I50.33 Congestive heart failure type: diastolic Congestive heart failure chronicity: acute on chronic Supratherapeutic INR R79.1 KATHI (acute kidney injury) N17.9 Hyponatremia E87.1 Hyperkalemia E87.5 Cellulitis L03.90 Wound, open, leg S81.809A PAD (peripheral artery disease) I73.9 Hypertension I10 Warfarin anticoagulation Z79.01 Carotid disease, bilateral I77.9 COPD (chronic obstructive pulmonary disease) J44.9 CHF exacerbation I50.9 Peripheral neuropathy G62.9
[2023-01-28] MEDS: ipratropium 0.5 mg/2.5 mL Neb INHALATION ×2 (15:06→20:02)
[2023-01-28] MEDS: levalbuterol 0.63 mg/3 mL Neb INHALATION ×2 (15:06→20:02)
[2023-01-28 15:42] LABS: Potassium, Radom Urine 32 mmol/L; Urine Creatinine 40 mg/dL (28-217); Urine Random Chloride 61 mmol/L; Urine Random Sodium 38 mmol/L
[2023-01-28 16:00] LABS: Vancomycin Trough 13.7 ug/mL (10-15)
--- NOTE | 2023-01-28 16:02 | PC.PHAR ---
PHARMACY TO DOSE CONSULT - VANCOMYCIN Patient's trough level came back at 13.7 ug/mL - Current renal function has remained roughly the same, so we will continue the current dose/frequency and monitor further as necessary. Pharmacy will continue to monitor the patient's renal function and make adjustments as necessary. Please let us know if there is anything else pharmacy can do in the care of this patient. Thanks, Vincenzo Corea, Pharm.D
[2023-01-28 16:10] LABS: Eosinophil Urine No Eosinophils Seen; Urine Eosinophil Count 0 (0-0)
[2023-01-28] MEDS: gabapentin 100 mg Capsule PO ×2 (16:21→20:58)
[2023-01-28] MEDS: vancomycin 1,000 MG in sodium chloride 0.9% 250 ML 250 MG IV (17:13)
[2023-01-28 18:08] LABS: Anion Gap 14.4 (5-19); Blood Urea Nitrogen 57 mg/dL (8-23); Calcium 8.2 mg/dL (8.5-10.5); Carbon Dioxide 27 mmol/L (22-29); Chloride 87 mmol/L (98-107); Glucose 108 mg/dL (65-115); Osmolality Calculated 274 mOsm/kg (285-295); Potassium 4.4 mmol/L (3.5-5.1); Sodium 124 mmol/L (136-145)
[2023-01-28] MEDS: atorvastatin 40 mg Tablet 80 MG PO (18:19)
--- NOTE | 2023-01-28 18:48 | PC.NURSE ---
Hospitalist ordered amiodarone 150mg IV bolus. Given at 18:40.
[2023-01-28] MEDS: budesonide 0.5 mg/2 mL Neb INHALATION (20:02)
[2023-01-28] MEDS: ropinirole 0.25 mg Tablet 0.5 MG PO (20:58)
[2023-01-29] VITALS (32 sets, daily range): BP systolic 100–119; BP diastolic 65–82; PULSE 94–126; RESP 16–30; O2SAT 79–94; BMI 35.6
[2023-01-29] MEDS: FUROsemide 10 mg/mL SDV 10mL 60 MG IVP ×3 (00:46→23:32)
[2023-01-29] MEDS: piperacillin-tazobactam 3.375 GM in sodium chloride 0.9% (plus) 50 ML IV ×3 (00:46→17:27)
[2023-01-29] MEDS: ipratropium 0.5 mg/2.5 mL Neb INHALATION ×4 (02:01→20:02)
[2023-01-29] MEDS: levalbuterol 0.63 mg/3 mL Neb INHALATION ×4 (02:01→20:02)
[2023-01-29 05:30] LABS: Basophils # 0.1 10^3/uL (0.0-0.1); Basophils % 0.2 %; Eosinophils # 0.1 10^3/uL (0.0-0.8); Eosinophils % 0.5 %; Hematocrit 31.5 % (37.0-47.0); Hemoglobin 9.5 g/dL (11.5-15.3); Lymphocytes # 0.7 10^3/uL (0.8-4.8); Lymphocytes % 3.4 %; Mean Corpuscular HGB Conc 30.2 g/dL (30.0-36.0); Mean Corpuscular Hemoglobin 27.4 pg (28.0-34.0); Mean Corpuscular Volume 90.8 fl (81-99); Mean Platelet Volume 10.5 fL (7.4-10.4); Monocytes # 1.8 10^3/uL (0.2-0.9); Monocytes % 8.9 %; Neutrophils # 17.23 10^3/uL (1.8-7.7); Neutrophils % 85.9 %; Nucleated Red Blood Cells % 0 %; Platelet Count 296 10^3/cmm (130-400); Red Blood Count 3.47 10^6/uL (4.1-5.3); Red Cell Distribution Width 15.8 % (12.1-15.1); White Blood Count 20.1 10^3/uL (4.0-10.0)
[2023-01-29 05:53] LABS: Alanine Aminotransferase 19 U/L (0-33); Albumin Level 2.9 g/dL (3.5-5.2); Alkaline Phosphatase 147 U/L (35-105); Anion Gap 13.8 (5-19); Aspartate Amino Transferase 22 U/L (0-32); Blood Urea Nitrogen 55 mg/dL (8-23); Calcium 8.7 mg/dL (8.5-10.5); Carbon Dioxide 29 mmol/L (22-29); Chloride 89 mmol/L (98-107); Globulin 3.8 g/dL (1.3-4.6); Glucose 98 mg/dL (65-115); INR 5.56 (0.8-1.2); Osmolality Calculated 279 mOsm/kg (285-295); Potassium 4.8 mmol/L (3.5-5.1); Sodium 127 mmol/L (136-145); Total Bilirubin 0.9 mg/dL (0.15-1.2); Total Protein 6.7 g/dL (6.6-8.7)
[2023-01-29 05:56] LABS: Creatinine Clr Calc Pharmacy 50.7364
[2023-01-29] MEDS: budesonide 0.5 mg/2 mL Neb INHALATION ×2 (07:56→20:02)
[2023-01-29] MEDS: magnesium lactate 84 mg Tablet 252 MG PO ×2 (08:19→17:29)
[2023-01-29] MEDS: fluticasone nasal spray 16gm Btl 2 SPRAY NASAL (08:20)
[2023-01-29] MEDS: pantoprazole DR 40 mg Tablet PO (08:20)
[2023-01-29] MEDS: gabapentin 100 mg Capsule PO (08:20)
[2023-01-29] MEDS: aspirin 81 mg Chew Tablet PO (08:20)
--- NOTE | 2023-01-29 11:03 | XRR_ITS ---
PROCEDURE INFORMATION: Exam: XR Chest Exam date and time: 01/29/2023 10:10 AM Age: 72 years old Clinical indication: Condition or disease; Lung condition and disease; Respiratory failure; Status not specified; Additional info: Resp failure TECHNIQUE: Imaging protocol: Radiologic exam of the chest. Views: 1 view. COMPARISON: 1. CT chest wo con [id number] 01/28/2023 1:09 PM 2. CR (CHEST, ) 01/27/2023 1:17 PM FINDINGS: Lungs: There is pulmonary vascular congestion with bilateral interstitial infiltrates and bibasilar consolidation. Pleural spaces: Small bilateral pleural effusions. Heart/Mediastinum: The cardiac silhouette is enlarged but unchanged. Bones/joints: Multiple lower thoracic vertebroplasties. XR/XR chest 1V portable [id number] IMPRESSION: There are findings consistent with congestive heart failure with pulmonary edema especially in the lung bases with small pleural effusions. This has worsened since previous chest x-ray.
--- NOTE | 2023-01-29 11:26 | P.PN_ITS ---
Subjective Subjective: No acute events overnight. Patient has remained on heated high flow. She is on 45 L 54% of oxygen supplementation to maintain saturation over 90%. Patient states she is usually a mouth breather. During the day she was switched over to oxime mask of 5 L along with 45 L 45% to maintain the same saturation. Blood pressures have remained stable. She is currently on amiodarone drip of 0.5 as per the protocol. Blood work appreciated for leukocytosis of 20,000, stable hemoglobin, INR of 5.56, sodium slight improvement to 127, creatinine improving to 1.1. Urine lites from yesterday appreciated. Documented urine output in last 24 hours around 1400 cc. Medications: Reviewed: Yes Vitals/I&O/Wt Last Vital Signs Temp 97.8 F 01/28/23 04:00 Pulse 103 H 01/29/23 08:00 Resp 24 H 01/29/23 08:00 BP 110/69 01/29/23 07:41 Pulse Ox 90 01/29/23 08:00 O2 Del Method Heated High Flow 01/29/23 07:57 O2 Flow Rate 45 01/29/23 08:00 FiO2 54 01/29/23 08:00 01/28/23 01/29/23 01/29/23 22:59 06:59 14:59 Intake Total 1008.257 / 1428.357 50 / 1478.357 360 / 360 Output Total 400 / 400 1000 / 1000 Balance 608.257 / 1028.357 50 / 1078.357 -640 / -640 Weight last 48 hrs Weight 94.347 kg Weight 94.347 kg Physical Exam Narrative: General: AOx3, no acute distress, laying in bed, heated high flow oxygen supplementation Eyes: conjunctiva clear w/o exudate or hemorrhage. non-icteric, EOM intact, PERRLA. no signs of nystagmus Nose: nasal mucosa pink, septum midline Oropharynx: good dentition Neck: FROM, no lymphadenopathy Chest: atraumatic, symmetrical CVD: S1-S2 irregularly irregular, tachycardia, no S3, 2/6 CHAD at LSB, 2+ pulse x 4 extremities. mild JVD, no carotid bruit. JVD mildly elevated Lungs: Normal vesicular breath sounds all over lung long with conductive air sounds, fine crackles mid chest bilaterally Abdomen: mild sabi-umbilical ttp, mild distension, soft, NABS. No hepatosplenomegaly, Extremities: FROM and 5/5 strength in BUE and BLE. -bilateral legs with 2+ edema, lymphedema, weeping with clear discharge, no open wounds or areas to attain culture. ttp mid calf distally. NVI. wiggles toes Neuro: NVI. Skin:? as below. Skin: OTHER: Left leg. Urinary Catheter Management: Monsalve: Cath Placed During This Visit: yes Reason for Continuing Indwelling Catheter: Accurate Measurement of Urinary Output in Critically Ill Patients Urinary Catheter Date of Insertion: 01/25/23 Urinary Catheter Time of Insertion: 15:00 Data 01/29/23 04:25 01/29/23 04:25 Micro: Microbiology 01/25/23 15:02 Wound Culture - Final Leg - Wound Morganella morganii Proteus mirabilis Corynebacterium species A&P Assessment and plan (1) Respiratory failure with hypoxia: Most likely in setting of acute exacerbation of chronic diastolic congestive heart failure in setting of atrial fibrillation with RVR along with COPD exacerbation in setting of mild pneumonia. Appreciate CT chest results. Oxygen supplementation keeping saturation over 90%. Wean heated high flow accordingly. Continue Pulmicort twice daily, Xopenex and ipratropium every 6 hours. Aggressive pulmonary toilet with chest vest Continue with Lasix 60 mg IV twice daily. Metolazone 2.5 mg daily. Strict input output charting, daily weights. Monsalve catheterization. Fluid restriction up to 1500 cc. Sputum culture pending. Patient does have worsening leukocytosis. With worsening respiratory failure we will check respiratory viral panel, repeat chest x-ray, urinalysis. For now continue with vancomycin and Zosyn. (2) Atrial fibrillation with RVR: Continue with amiodarone drip as per protocol. Start on 400 mg twice daily. Hold off on Coreg given borderline blood pressures. Stop Cardizem. Continue with Coumadin with a target INR of 2-3 (3) CHF (congestive heart failure), NYHA class III: Echocardiogram shows an EF of 60% with mild MR. Treatment as above. Qualifiers: Congestive heart failure chronicity: acute on chronic Congestive heart failure type: diastolic Qualified Code(s): I50.33 - Acute on chronic diastolic (congestive) heart failure (4) Supratherapeutic INR: Goal INR of 2-3 for A-fib. INR more than 5 today. Hold off on Coumadin. Pharmacy consult for dosing of warfarin. (5) KATHI (acute kidney injury): Resolving. Most likely in setting of congestive heart failure. Continue to monitor renal functions daily. Medical treatment patient done for nephrotoxic drugs. Strict input and output charting. (6) Hyponatremia: Acute on chronic. Most recently ranging 1 28-1 30. Appreciate urine lites, urine creatinine. Most likely hypervolemic hyponatremia. Start on albumin 25 g 25% every 8 hourly. Continue to monitor daily. If continues to remain low will plan on starting oral salt tablets. (7) Hyperkalemia: Resolved today. Monitor daily. (8) Cellulitis: Chronic. Wound culture taken on admission shows Proteus, Moraxella, Corynebacterium. Mo st likely contaminant. For now continue with IV Zosyn and vancomycin as above. Antibiotics will cover for the culture results. Wound therapy (9) Wound, open, leg: (10) PAD (peripheral artery disease): (11) Hypertension: (12) Warfarin anticoagulation: (13) Carotid disease, bilateral: (14) COPD (chronic obstructive pulmonary disease): (15) CHF exacerbation: (16) Peripheral neuropathy: Most likely in setting of PAD and chronic smoker. Start on Requip 0.5 at bedtime and gabapentin 100 mg 3 times daily. Plan Hematuria: Most likely traumatic in setting of supratherapeutic INR. Clearing up. Check urinalysis. CODE STATUS: DNR/DNI. Regular diet. Protonix for PUD prophylaxis Coumadin will suffice as DVT prophylaxis. Discharge plan: Plan to discharge home with caregiver and home health once medically stable. Patient remains critically sick. Attestations Medical Necessity Statement*: Requires further hospitalization for management of respiratory failure in setting of diastolic congestive heart failure, atrial fibrillation with rapid ventricular response, supratherapeutic INR Coding Level of Care Code Acute Code for [facility] Diagnoses Respiratory failure with hypoxia J96.91 Atrial fibrillation with RVR I48.91 CHF (congestive heart failure), NYHA class III I50.33 Congestive heart failure chronicity: acute on chronic Congestive heart failure type: diastolic Supratherapeutic INR R79.1 KATHI (acute kidney injury) N17.9 Hyponatremia E87.1 Hyperkalemia E87.5 Cellulitis L03.90 Wound, open, leg S81.809A PAD (peripheral artery disease) I73.9 Hypertension I10 Warfarin anticoagulation Z79.01 Carotid disease, bilateral I77.9 COPD (chronic obstructive pulmonary disease) J44.9 CHF exacerbation I50.9 Peripheral neuropathy G62.9
[2023-01-29] MEDS: dexamethasone 10 mg/mL INJ 6 MG IVP (11:27)
[2023-01-29] MEDS: amiodarone 200 mg Tablet 400 MG PO ×2 (11:48→17:28)
[2023-01-29 11:56] LABS: Add Urine Microscopic? YES; Bilirubin Urine Neg (Negative); Blood Urine 3+ (Negative); Glucose Urine UA Norm (Normal); Ketones Urine Negative (Negative); Leukocyte Esterase Urine 1+ (Negative); Nitrate Urine Negative (Negative); Protein Urine 2+ (Negative); Urine Appearance Cloudy (CLEAR); Urine Color Red (Yellow); Urobilinogen Urine Neg (Negative); pH Urine 5 (5-7)
[2023-01-29 11:57] LABS: RBC Urine >100 /hpf (0-2)
[2023-01-29 11:58] LABS: Bacteria Urine 1+ /hpf; Mucus Urine 1+ /hpf
[2023-01-29 11:59] LABS: Add Urine Culture? Yes; Hyaline Casts Urine 0-4 /lpf
[2023-01-29] MEDS: albumin 25 G/100 ML BAG 60 G IV ×2 (13:01→20:13)
[2023-01-29 13:14] LABS: Adenovirus Not Detected (NOT DETECT); Chlamydia Pneumoniae Not Detected (NOT DETECT); Coronavirus 229E,HKU1,NL63,OC4 Not Detected (NOT DETECT); Human Metapneumovirus Not Detected (NOT DETECT); Human Rhinovirus/Enterovirus Not Detected (NOT DETECT); Influenza A Not Detected (NOT DETECT); Influenza A H1 Not Detected (NOT DETECT); Influenza A H1-2009 Not Detected (NOT DETECT); Influenza A H3 Not Detected (NOT DETECT); Influenza B Not Detected (NOT DETECT); Mycoplasma Pneumoniae Not Detected (NOT DETECT); Parainfluenza Virus Type 1 Not Detected (NOT DETECT); Parainfluenza Virus Type 2 Not Detected (NOT DETECT); Parainfluenza Virus Type 3 Not Detected (NOT DETECT); Parainfluenza Virus Type 4 Not Detected (NOT DETECT); Respiratory Syncytial Virus A Not Detected (NOT DETECT); Respiratory Syncytial Virus B Not Detected (NOT DETECT); SARS-COV-2 Not Detected (NOT DETECT)
[2023-01-29] MEDS: metOLazone 5 MG Tablet 2.5 MG PO (15:01)
[2023-01-29] MEDS: HYDROcodone-acetaminophen 5-325 mg Tablet 1 TAB PO (15:14)
[2023-01-29] MEDS: vancomycin 1,000 MG in sodium chloride 0.9% 250 ML 250 MG IV (17:22)
[2023-01-29] MEDS: atorvastatin 40 mg Tablet 80 MG PO (17:28)
[2023-01-29] MEDS: ropinirole 0.25 mg Tablet 0.5 MG PO (20:13)
[2023-01-30] VITALS (20 sets, daily range): BP systolic 96–127; BP diastolic 60–80; PULSE 90–125; RESP 16–30; TEMP 36.9; O2SAT 82–96; BMI 35.5
[2023-01-30] MEDS: piperacillin-tazobactam 3.375 GM in sodium chloride 0.9% (plus) 50 ML IV ×3 (00:49→18:31)
[2023-01-30] MEDS: ipratropium 0.5 mg/2.5 mL Neb INHALATION ×4 (01:55→19:47)
[2023-01-30] MEDS: levalbuterol 0.63 mg/3 mL Neb INHALATION ×4 (01:55→19:47)
[2023-01-30] MEDS: albumin 25 G/100 ML BAG 60 G IV ×3 (04:23→19:27)
[2023-01-30 06:09] LABS: Basophils % 0.2 %; Hematocrit 29.2 % (37.0-47.0); Hemoglobin 8.9 g/dL (11.5-15.3); Lymphocytes # 0.5 10^3/uL (0.8-4.8); Lymphocytes % 3.1 %; Mean Corpuscular HGB Conc 30.5 g/dL (30.0-36.0); Mean Corpuscular Hemoglobin 27.6 pg (28.0-34.0); Mean Corpuscular Volume 90.4 fl (81-99); Mean Platelet Volume 10.2 fL (7.4-10.4); Monocytes % 6.5 %; Neutrophils % 89.1 %; Nucleated Red Blood Cells % 0 %; Platelet Count 280 10^3/cmm (130-400); Red Blood Count 3.23 10^6/uL (4.1-5.3); Red Cell Distribution Width 15.7 % (12.1-15.1); White Blood Count 15.1 10^3/uL (4.0-10.0)
[2023-01-30 06:23] LABS: INR 4.65 (0.8-1.2)
[2023-01-30 06:31] LABS: Alanine Aminotransferase 15 U/L (0-33); Albumin Level 3.6 g/dL (3.5-5.2); Alkaline Phosphatase 131 U/L (35-105); Anion Gap 16.8 (5-19); Aspartate Amino Transferase 14 U/L (0-32); Blood Urea Nitrogen 63 mg/dL (8-23); Calcium 8.7 mg/dL (8.5-10.5); Carbon Dioxide 29 mmol/L (22-29); Chloride 86 mmol/L (98-107); Globulin 3.5 g/dL (1.3-4.6); Glucose 131 mg/dL (65-115); Osmolality Calculated 284 mOsm/kg (285-295); Potassium 4.8 mmol/L (3.5-5.1); Sodium 127 mmol/L (136-145); Total Bilirubin 0.6 mg/dL (0.15-1.2); Total Protein 7.1 g/dL (6.6-8.7)
[2023-01-30] MEDS: budesonide 0.5 mg/2 mL Neb INHALATION ×2 (08:21→19:47)
[2023-01-30] MEDS: amiodarone 200 mg Tablet 400 MG PO ×2 (08:30→18:29)
[2023-01-30] MEDS: magnesium lactate 84 mg Tablet 252 MG PO ×2 (08:30→18:31)
[2023-01-30] MEDS: aspirin 81 mg Chew Tablet PO (08:31)
[2023-01-30] MEDS: pantoprazole DR 40 mg Tablet PO (08:31)
[2023-01-30] MEDS: metOLazone 5 MG Tablet 2.5 MG PO (08:31)
[2023-01-30] MEDS: FUROsemide 10 mg/mL SDV 10mL 40 MG IVP ×2 (09:06→18:32)
--- NOTE | 2023-01-30 09:06 | FL_ITS ---
WS: [id number] FL barium swallow modifd [id number] REASON FOR EXAM: Oropharyngeal dysphagia FLUOROSCOPY TIME: 2min [id number] SPOT FILMS: None FINDINGS: Patient was examined in the upright sitting lateral position. Procedure was supervised by the speech therapy department. Swallowing of varying consistencies of barium was monitored fluoroscopically with video fluoroscopic recording. Detailed analysis and report of the swallowing will be rendered by the speech therapy department. No aspiration was identified. FL/FL barium swallow modifd [id number] IMPRESSION: Modified barium swallow as above.
[2023-01-30] MEDS: metoprolol tartrate 25 mg Tablet PO ×2 (09:44→19:27)
--- NOTE | 2023-01-30 10:20 | PC.NURSE ---
off unit for modified barium swallow test.
--- NOTE | 2023-01-30 11:19 | PC.NURSE ---
pt desaturate w spo2 of 77% when attempted to transfer pt from bed to chair. Pt then reported of being lightheaded and dizzy. RT notified still on HHF nc 45%. pt transfer back in bed. Notified hospitalist.
--- NOTE | 2023-01-30 14:34 | P.PN_ITS ---
Subjective Subjective: No acute events overnight. Patient has remained hemodynamically stable and afebrile. Heart rate doing slightly better today. at bedside. Patient continues to remain on 45 L 45% of heated high flow. Denies any nausea, vomiting, headache, dizziness. Awake and alert. States feeling slightly better. Complaining of inability to eat because of pain in her gums on the right side. She thinks she changed and not between her dentures and her gums switch out her gums. During the day tried to work with physical therapy but on getting up to side of the bed desaturated to 77% so was placed back in the bed after which her saturations improved in 15 minutes. Documented urine output of around 2.5 L in last 24 hours. Patient is still around 3.5 L positive since admission. Blood work appreciated for mildly resolving leukocytosis of 15,000, stable hemoglobin of around 8.9, INR trending down to 4.65 but still supratherapeutic, stable hyponatremia, creatinine stable at around 1.2 with BUN slightly trending up to 63. Urinalysis repeated yesterday appreciated. Respiratory viral panel negative. Medications: Reviewed: Yes Vitals/I&O/Wt Last Vital Signs Temp 97.8 F 01/28/23 04:00 Pulse 104 H 01/30/23 13:09 Resp 17 01/30/23 13:09 BP 110/69 01/30/23 12:00 Pulse Ox 90 01/30/23 13:09 O2 Del Method Heated High Flow 01/30/23 13:05 O2 Flow Rate 45 01/30/23 13:09 FiO2 50 01/30/23 13:09 01/29/23 01/30/23 01/30/23 22:59 06:59 14:59 Intake Total 900 / 1929.743 250 / 2179.743 460 / 460 Output Total 1100 / 2100 350 / 2450 150 / 150 Balance -200 / -170.257 -100 / -270.257 310 / 310 Weight last 48 hrs Weight 93.95 kg Weight 94.347 kg Physical Exam Narrative: General: AOx3, no acute distress, laying in bed, heated high flow oxygen supplementation Eyes: conjunctiva clear w/o exudate or hemorrhage. non-icteric, EOM intact, PERRLA. no signs of nystagmus Nose: nasal mucosa pink, septum midline Oropharynx: good dentition Neck: FROM, no lymphadenopathy Chest: atraumatic, symmetrical CVD: S1-S2 irregularly irregular, tachycardia, no S3, 2/6 CHAD at LSB, 2+ pulse x 4 extremities. mild JVD, no carotid bruit. JVD mildly elevated Lungs: Normal vesicular breath sounds all over lung long with conductive air sounds, fine crackles mid chest bilaterally Abdomen: mild sabi-umbilical ttp, mild distension, soft, NABS. No hepatosplenomegaly, Extremities: FROM and 5/5 strength in BUE and BLE. -bilateral legs with 2+ edema, lymphedema, weeping with clear discharge, no open wounds or areas to attain culture. ttp mid calf distally. NVI. wiggles toes Neuro: NVI. Skin:? as below. Skin: OTHER: Left leg. Urinary Catheter Management: Monsalve: Cath Placed During This Visit: yes Reason for Continuing Indwelling Catheter: Acute Urinary Retention or Obstruction Urinary Catheter Date of Insertion: 01/25/23 Urinary Catheter Time of Insertion: 15:00 Data 01/30/23 04:56 01/30/23 04:56 Micro: Microbiology 01/29/23 11:15 Urine Culture - Preliminary Urine,Clean Catch A&P Assessment and plan (1) Respiratory failure with hypoxia: Most likely in setting of acute exacerbation of chronic diastolic congestive heart failure in setting of atrial fibrillation with RVR along with COPD exacerbation in setting of mild pneumonia. Appreciate CT chest results. Continue with heated high flow for now. Currently 45 L 45%. Wean keeping saturation over 90%. BiPAP nightly when sleeping. Continue Pulmicort twice daily, Xopenex and ipratropium every 6 hours. Aggressive pulmonary toilet with chest vest. Out of bed whenever possible. Patient overall still 3 L positive. Seems intra volume depleted. Continue with albumin. Continue with Lasix 40 dose of 40 mg IV twice daily. Continue with metolazone 2.5 mg daily. Strict input output charting, daily weights. Monsalve catheterization. Change fluid restriction to 1 L. Slight concerns for aspiration pneumonia. We will have speech therapy evaluation and modified barium swallow evaluation. Will change diet accordingly if needed. Sputum culture pending. Respiratory viral panel negative, appreciate repeat chest x-ray and urinalysis. MRSA negative. Stop vancomycin. Continue with Zosyn. (2) Atrial fibrillation with RVR: Heart rate better controlled. Continue with amiodarone 400 mg twice daily. Plan for 40 mg twice daily for 7 days followed by 200 mg twice daily for 7 days and thereafter 20 mg daily. Blood pressure is better. Start on metoprolol 25 mg twice daily. Stop Coreg. Restart Coumadin once INR in target. (3) CHF (congestive heart failure), NYHA class III: Echocardiogram shows an EF of 60% with mild MR. Treatment as above. Qualifiers: Congestive heart failure chronicity: acute on chronic Congestive heart failure type: diastolic Qualified Code(s): I50.33 - Acute on chronic diastolic (congestive) heart failure (4) Supratherapeutic INR: Goal INR of 2-3 for A-fib. INR still Supratherapeutic but improving. Hold off on Coumadin. Pharmacy consult for dosing of warfarin. (5) KATHI (acute kidney injury): Stable. Most likely in setting of congestive heart failure. Continue to monitor renal functions daily. Medical treatment patient done for nephrotoxic drugs. Strict input and output charting. Renal nondialysis diet. (6) Hyponatremia: Acute on chronic. Most recently ranging 1 28-1 30. Appreciate urine lites, urine creatinine. Most likely hypervolemic hyponatremia. Continue albumin 25 g 25% every 8 hourly for 1 more day. Continue to monitor daily. If continues to remain low will plan on starting oral salt tablets. (7) Hyperkalemia: Resolved today. Monitor daily. (8) Cellulitis: Chronic. Wound culture taken on admission shows Proteus, Moraxella, Corynebacterium. Most likely contaminant. For now continue with IV Zosynas above for overall 7-day course. Antibiotics will cover for the culture results. Wound therapy (9) Wound, open, leg: (10) PAD (peripheral artery disease): (11) Hypertension: (12) Warfarin anticoagulation: (13) Carotid disease, bilateral: (14) COPD (chronic obstructive pulmonary disease): (15) CHF exacerbation: (16) Peripheral neuropathy: Most likely in setting of PAD and chronic smoker. Start on Requip 0.5 at bedtime and gabapentin 100 mg 3 times daily. Plan Hematuria: Most likely traumatic in setting of supratherapeutic INR. Clearing up. CODE STATUS: DNR/DNI. Regular diet. Protonix for PUD prophylaxis Coumadin will suffice as DVT prophylaxis. Discharge plan: Plan to discharge home with caregiver and home health once medically stable. Patient remains critically sick. Attestations Medical Necessity Statement*: Requires further hospitalization for management of respiratory failure in setting of congestive heart failure, possible aspiration, atrial fibrillation with rapid ventricular response, supratherapeutic INR Coding Level of Care Code Critical Care >/= 30 minutes Critical care time (in minutes): 60 The high probability of a clinically significant, sudden or life threatening deterioration, as referenced in this documentation, required my full and direct attention, intervention and personal management. The critical care time shown is in addition to time spent performing any reported separately billable procedures and includes the following: [x] Data and vital sign review and interpretation [x ] Patient assessment, examination and intervention [x] Medication orders and management [x] Patient/Family updates as able [x] Care Coordination and Documentation. Diagnoses Respiratory failure with hypoxia J96.91 Atrial fibrillation with RVR I48.91 CHF (congestive heart failure), NYHA class III I50.33 Congestive heart failure chronicity: acute on chronic Congestive heart failure type: diastolic Supratherapeutic INR R79.1 KATHI (acute kidney injury) N17.9 Hyponatremia E87.1 Hyperkalemia E87.5 Cellulitis L03.90 Wound, open, leg S81.809A PAD (peripheral artery disease) I73.9 Hypertension I10 Warfarin anticoagulation Z79.01 Carotid disease, bilateral I77.9 COPD (chronic obstructive pulmonary disease) J44.9 CHF exacerbation I50.9 Peripheral neuropathy G62.9
[2023-01-30] MEDS: sodium chloride 1 gm Tablet PO (18:29)
[2023-01-30] MEDS: atorvastatin 40 mg Tablet 80 MG PO (18:29)
[2023-01-30] MEDS: fixodent 39 gm Tube 1 APPLIC DENTAL (18:41)
[2023-01-30] MEDS: HYDROcodone-acetaminophen 5-325 mg Tablet 1 TAB PO (19:26)
[2023-01-30] MEDS: ropinirole 0.25 mg Tablet 0.5 MG PO (19:26)
[2023-01-31] VITALS (29 sets, daily range): BP systolic 90–128; BP diastolic 54–79; PULSE 92–125; RESP 16–25; TEMP 36.7–36.8; O2SAT 87–97
[2023-01-31] MEDS: piperacillin-tazobactam 3.375 GM in sodium chloride 0.9% (plus) 50 ML IV ×3 (00:24→17:53)
[2023-01-31] MEDS: levalbuterol 0.63 mg/3 mL Neb INHALATION ×4 (01:29→21:24)
[2023-01-31] MEDS: ipratropium 0.5 mg/2.5 mL Neb INHALATION ×4 (01:29→21:24)
[2023-01-31 05:11] LABS: Basophils % 0.1 %; Eosinophils # 0.1 10^3/uL (0.0-0.8); Eosinophils % 0.8 %; Hematocrit 27.7 % (37.0-47.0); Hemoglobin 8.4 g/dL (11.5-15.3); Lymphocytes # 0.9 10^3/uL (0.8-4.8); Lymphocytes % 6.9 %; Mean Corpuscular HGB Conc 30.3 g/dL (30.0-36.0); Mean Corpuscular Hemoglobin 27.3 pg (28.0-34.0); Mean Corpuscular Volume 89.9 fl (81-99); Mean Platelet Volume 10.4 fL (7.4-10.4); Monocytes # 1.2 10^3/uL (0.2-0.9); Monocytes % 8.9 %; Neutrophils % 81.9 %; Nucleated Red Blood Cells % 0 %; Platelet Count 297 10^3/cmm (130-400); Red Blood Count 3.08 10^6/uL (4.1-5.3); White Blood Count 13.7 10^3/uL (4.0-10.0)
[2023-01-31 05:23] LABS: INR 3.44 (0.8-1.2)
[2023-01-31 05:29] LABS: Alanine Aminotransferase 11 U/L (0-33); Albumin Level 3.9 g/dL (3.5-5.2); Alkaline Phosphatase 112 U/L (35-105); Anion Gap 13.3 (5-19); Aspartate Amino Transferase 15 U/L (0-32); Blood Urea Nitrogen 72 mg/dL (8-23); Carbon Dioxide 33 mmol/L (22-29); Chloride 88 mmol/L (98-107); Globulin 2.9 g/dL (1.3-4.6); Glucose 94 mg/dL (65-115); Osmolality Calculated 291 mOsm/kg (285-295); Potassium 4.3 mmol/L (3.5-5.1); Sodium 130 mmol/L (136-145); Total Bilirubin 0.9 mg/dL (0.15-1.2); Total Protein 6.8 g/dL (6.6-8.7)
[2023-01-31] MEDS: budesonide 0.5 mg/2 mL Neb INHALATION ×2 (08:18→21:24)
[2023-01-31] MEDS: aspirin 81 mg Chew Tablet PO (09:49)
[2023-01-31] MEDS: FUROsemide 10 mg/mL SDV 10mL 40 MG IVP (09:49)
[2023-01-31] MEDS: metOLazone 5 MG Tablet 2.5 MG PO (09:49)
[2023-01-31] MEDS: amiodarone 200 mg Tablet 400 MG PO ×2 (09:49→17:54)
[2023-01-31] MEDS: metoprolol tartrate 25 mg Tablet PO ×2 (09:49→20:29)
[2023-01-31] MEDS: magnesium lactate 84 mg Tablet 252 MG PO ×2 (09:49→17:53)
[2023-01-31] MEDS: sodium chloride 1 gm Tablet PO ×2 (09:49→17:53)
[2023-01-31] MEDS: pantoprazole DR 40 mg Tablet PO (09:49)
--- NOTE | 2023-01-31 13:02 | P.PN_ITS ---
Subjective Subjective: No acute events overnight. Patient tolerated BiPAP overnight well. Hemodynamically has remained stable. Heart rate slightly better controlled. Continues to remain on heated high flow 50 L 50% saturating more than 92%. States feeling the same. Denies any nausea vomiting, headache. Diet changed according to speech evaluation yesterday. Documented urine output in last 24 hours of around 1.2 L. Patient rested around 3 L positive. Blood work appreciated for slightly improving leukocytosis, hemoglobin stable to be around 8.4, sodium improving to 130, creatinine stable around 1.2 and BUN slightly elevated to 72 Medications: Reviewed: Yes Vitals/I&O/Wt Last Vital Signs Temp 98.1 F 01/31/23 11:06 Pulse 112 H 01/31/23 11:06 Resp 22 H 01/31/23 11:06 BP 120/66 01/31/23 11:06 Pulse Ox 95 01/31/23 11:06 O2 Del Method Heated High Flow 01/31/23 11:06 O2 Flow Rate 50 01/31/23 08:18 FiO2 60 01/31/23 08:18 01/30/23 01/31/23 01/31/23 22:59 06:59 14:59 Intake Total 440 / 950 50 / 1000 240 / 240 Output Total 450 / 600 650 / 1250 750 / 750 Balance -10 / 350 -600 / -250 -510 / -510 Weight last 48 hrs Weight 93.077 kg Weight 93.95 kg Physical Exam Narrative: General: AOx3, no acute distress, laying in bed, heated high flow oxygen supplementation Eyes: conjunctiva clear w/o exudate or hemorrhage. non-icteric, EOM intact, PERRLA. no signs of nystagmus Nose: nasal mucosa pink, septum midline Oropharynx: good dentition Neck: FROM, no lymphadenopathy Chest: atraumatic, symmetrical CVD: S1-S2 irregularly irregular, tachycardia, no S3, 2/6 CHAD at LSB, 2+ pulse x 4 extremities. mild JVD, no carotid bruit. JVD mildly elevated Lungs: Normal vesicular breath sounds all over lung long with conductive air sounds, fine crackles mid chest bilaterally Abdomen: mild sabi-umbilical ttp, mild distension, soft, NABS. No hepatosplenomegaly, Extremities: FROM and 5/5 strength in BUE and BLE. -bilateral legs with 2+ edema, lymphedema, weeping with clear discharge, no open wounds or areas to attain culture. ttp mid calf distally. NVI. wiggles toes Neuro: NVI. Skin:? as below. Urinary Catheter Management: Monsalve: Cath Placed During This Visit: yes Reason for Continuing Indwelling Catheter: Acute Urinary Retention or Obstruction Urinary Catheter Date of Insertion: 01/25/23 Urinary Catheter Time of Insertion: 15:00 Data 01/31/23 04:20 01/31/23 04:20 Micro: Microbiology 01/29/23 11:15 Urine Culture - Final Urine,Clean Catch 01/25/23 15:45 Blood Culture - Final Blood NO GROWTH AFTER 5 DAYS 01/25/23 15:40 Blood Culture - Final Blood NO GROWTH AFTER 5 DAYS A&P Assessment and plan (1) Respiratory failure with hypoxia: Most likely in setting of acute exacerbation of chronic diastolic congestive h eart failure in setting of atrial fibrillation with RVR along with COPD exacerbation in setting of mild pneumonia. Appreciate CT chest results. Continue with heated high flow for now. Currently 45 L 45%. Wean keeping saturation over 90%. BiPAP nightly when sleeping. Continue Pulmicort twice daily, Xopenex and ipratropium every 6 hours. Aggressive pulmonary toilet with chest vest. Out of bed whenever possible. Patient overall still 3 L positive. Seems intra volume depleted. Continue with albumin. Continue with Lasix 40 dose of 40 mg IV twice daily. Continue with metolazone 2.5 mg daily. Strict input output charting, daily weights. Monsalve catheterization. Change fluid restriction to 1 L. Slight concerns for aspiration pneumonia. We will have speech therapy evaluation and modified barium swallow evaluation. Will change diet accordingly if needed. Sputum culture pending. Respiratory viral panel negative, appreciate repeat chest x-ray and urinalysis. MRSA negative. Stop vancomycin. Continue with Zosyn. (2) Atrial fibrillation with RVR: Heart rate better controlled. Continue with amiodarone 400 mg twice daily. Plan for 40 mg twice daily for 7 days followed by 200 mg twice daily for 7 days and thereafter 20 mg daily. Blood pressure is better. Start on metoprolol 25 mg twice daily. Stop Coreg. Restart Coumadin once INR in target. (3) CHF (congestive heart failure), NYHA class III: Echocardiogram shows an EF of 60% with mild MR. Treatment as above. Qualifiers: Congestive heart failure chronicity: acute on chronic Congestive heart failure type: diastolic Qualified Code(s): I50.33 - Acute on chronic diastolic (congestive) heart failure (4) Supratherapeutic INR: Goal INR of 2-3 for A-fib. INR still Supratherapeutic but improving. Hold off on Coumadin. Pharmacy consult for dosing of warfarin. (5) KATHI (acute kidney injury): Stable. Most likely in setting of congestive heart failure. Continue to monitor renal functions daily. Medical treatment patient done for nephrotoxic drugs. Strict input and output charting. Renal nondialysis diet. (6) Hyponatremia: Acute on chronic. Most recently ranging 1 28-1 30. Appreciate urine lites, urine creatinine. Most likely hypervolemic hyponatremia. Continue albumin 25 g 25% every 8 hourly for 1 more day. Continue to monitor daily. If continues to remain low will plan on starting oral salt tablets. (7) Hyperkalemia: Resolved today. Monitor daily. (8) Cellulitis: Chronic. Wound culture taken on admission shows Proteus, Moraxella, Corynebacterium. Most likely contaminant. For now continue with IV Zosynas above for overall 7-day course. Antibiotics will cover for the culture results. Wound therapy (9) Wound, open, leg: (10) PAD (peripheral artery disease): (11) Hypertension: (12) Warfarin anticoagulation: (13) Carotid disease, bilateral: (14) COPD (chronic obstructive pulmonary disease): (15) CHF exacerbation: (16) Peripheral neuropathy: Most likely in setting of PAD and chronic smoker. Start on Requip 0.5 at bedtime and gabapentin 100 mg 3 times daily. Plan Hematuria: Most likely traumatic in setting of supratherapeutic INR. Clearing up. CODE STATUS: DNR/DNI. Regular diet. Protonix for PUD prophylaxis Supratherapeutic INR will suffice as DVT prophylaxis. Plan for today: Switch to Bumex 2 mg every 8 hourly. Patient takes Bumex at home. Continue fluid restriction up to 1 L. Continue metolazone 2.5 mg daily. Creatinine stable. Continue to monitor daily. Sodium improving. Continue with salt tablet 1 g twice daily. Because of persistent respiratory failure will consult pulmonology for further recommendations. Appreciate speech therapy evaluation. Diet changed according to the evaluation. No apparent signs of aspiration but diet changed given difficulty with dentures currently. Wean off oxygen keeping saturation over 88%. Continue BiPAP nightly. Continue Zosyn to finish a 5-day course. Continue with metoprolol 25 mg twice daily and amiodarone 400 mg twice daily for now. Strict input output charting. Continue to hold off on Coumadin given supratherapeutic INR which seems to be improving. Target 2-3. Discharge plan: Plan to discharge home with caregiver and home health once medically stable. Patient remains critically sick. Attestations Medical Necessity Statement*: Requires further hospitalization for management of acute hypoxic respiratory failure in setting of diastolic congestive heart failure, atrial fibrillation with rapid ventricular response Diagnoses Respiratory failure with hypoxia J96.91 Atrial fibrillation with RVR I48.91 CHF (congestive heart failure), NYHA class III I50.33 Congestive heart failure chronicity: acute on chronic Congestive heart failure type: diastolic Supratherapeutic INR R79.1 KATHI (acute kidney injury) N17.9 Hyponatremia E87.1 Hyperkalemia E87.5 Cellulitis L03.90 Wound, open, leg S81.809A PAD (peripheral artery disease) I73.9 Hypertension I10 Warfarin anticoagulation Z79.01 Carotid disease, bilateral I77.9 COPD (chronic obstructive pulmonary disease) J44.9 CHF exacerbation I50.9 Peripheral neuropathy G62.9
[2023-01-31] MEDS: bumetanide 0.25 mg/mL SDV 10 mL 2 MG IVP ×2 (14:22→20:30)
[2023-01-31] MEDS: atorvastatin 40 mg Tablet 80 MG PO (17:54)
[2023-01-31] MEDS: ropinirole 0.25 mg Tablet 0.5 MG PO (20:30)
--- NOTE | 2023-01-31 20:51 | P.CONIM_ITS ---
Providers/Reason For Consult Consulting Physician/Specialty*: Panchito Pena MD/ Pulmonary critical care Reason for Consult*: Hypoxic respiratory failure Requesting Physician: Drew Richardson MD Attending Physician: Drew Richardson MD Primary Care Provider: Gurwinder Lomeli DO History of Present Illness History of Present Illness Nimo Pressley is a 72 year old female with Hx of HFpEF, HTN, HLD, Afib on coumadin, PAD s/p bilat carotid endarterectomy (2012) and fem-pop bypass, COPD, Tobacco use disorder and chronic wounds presented to ED with SOB and in Afib RVR And diastolic heart failure exacerbation. She was started on Cardizem drip and Coumadin For CHF exacerbation-patient is currently receiving Lasix 40 Mg twice daily There is questionable sepsis given her chronic wound on bilateral legs as past cultures showed persistent Pseudomonas sensitive to Zosyn and currently she is receiving Zosyn. Patient was admitted to [facility] for close monitoring. Patient is requiring heated high flow 35 L and a 50%. Respiratory viral panel was negative. Patient had a CTA 01/28/2023-which showed mild pulmonary edema po ssible pneumonitis, small bilateral pleural effusions, compressive atelectasis at lung bases, cardiomegaly.Patient blood cultures were negative. Wound culture leg wound culture 01/25/2023 was growing Morganella, Proteus, corynebacterium which are sensitive for Zosyn. Pulmonary consult requested for hypoxic respiratory failure. Patient seen at bedside; Currently on 35 L 50% Reported that her breathing has Somewhat improved since her admission. Heart rate is Controlled. Review of Systems General: Reports: 10 or more systems reviewed and unremarkable except in HPI and below Medications/Allergies Home Medications Medication Instructions Recorded Confirmed Last Taken Type albuterol sulfate 90 mcg/actuation 1 puff inhalation QID PRN 04/26/21 01/25/23 02/26/22 Rx aerosol inhaler shortness of breath or wheezing #8.5 grams hydrocodone 5 mg-acetaminophen 325 1 tab PO Q4H PRN pain 5 days #30 04/10/22 01/25/23 05/27/22 20:00 Rx mg tablet tabs aspirin 81 mg capsule 81 mg PO DAILY 05/28/22 01/25/23 01/24/23 History bumetanide 2 mg tablet 2 mg PO BID #180 tabs 06/05/22 01/25/23 01/24/23 Rx carvedilol 6.25 mg tablet 6.25 mg PO BID #180 tabs 06/05/22 01/25/23 01/25/23 Rx metolazone 2.5 mg tablet 2.5 mg PO .every other day #90 tabs 06/05/22 01/25/23 01/23/23 Rx spironolactone 25 mg tablet 25 mg PO DAILY #90 tabs 06/05/22 01/25/23 01/25/23 Rx famotidine 20 mg tablet (Pepcid AC) 20 mg PO DAILY #90 tabs 08/23/22 01/25/23 01/25/23 Rx magnesium L-lactate 84 mg 250 mg PO BID 09/15/22 01/25/23 01/24/23 History tablet,extended release potassium chloride 20 mEq 40 meq PO DAILY 09/15/22 01/25/23 01/24/23 History tablet,extended release calamine 3 %-zinc oxide 3 %-gauze #10 ea 09/20/22 01/25/23 Unknown Rx bandage 3 X 10 yard (Unna Boot Zinc-Calamine) atorvastatin 80 mg tablet 80 mg PO QPM 01/25/23 01/25/23 01/24/23 History warfarin 4 mg tablet See Rx Instructions .Route .COMPLEX 01/25/23 01/25/23 01/24/23 History Allergies Allergy/AdvReac Type Severity Reaction Status Date / Time nkda Allergy Unknown Unknown Uncoded 01/24/23 13:14 Current Medications Generic Name Dose Route Start Last Admin Trade Name Paulie PRN Reason Stop Dose Admin Acetaminophen 650 mg 01/25/23 13:10 01/27/23 13:56 Acetaminophen 325 Mg Tablet PO 650 mg Q6H PRN Administration Mild/Mod Pain Or Temp >/= 101 Hydrocodone Bitart/Acetaminophen 1 tab 01/25/23 16:19 01/30/23 19:26 Hydrocodone-Acetaminophen 5-325 Mg Tablet PO 1 tab Q4H PRN Administration pain Amiodarone HCl 400 mg 01/29/23 11:40 01/31/23 17:54 Amiodarone 200 Mg Tablet PO 400 mg BID ETHAN Administration Aspirin 81 mg 01/26/23 09:00 01/31/23 09:49 Aspirin 81 Mg Chew Tablet PO 81 mg DAILY ETHAN Administration Atorvastatin Calcium 80 mg 01/25/23 18:00 01/31/23 17:54 Atorvastatin 40 Mg Tablet PO 80 mg QPM ETHAN Administration Budesonide 0.5 mg 01/28/23 20:00 01/31/23 08:18 Budesonide 0.5 Mg/2 Ml Neb INHALATION 0.5 mg BID.RESPIRATORY ETHAN Administration Bumetanide 2 mg 01/31/23 13:00 01/31/23 20:30 Bumetanide 0.25 Mg/Ml Sdv 10 Ml IVP 2 mg Q8H ETHAN Administration Denture Adhesive 1 applic 01/30/23 09:06 01/30/23 18:41 Fixodent 39 Gm Tube DENTAL 1 applic PRN PRN Administration denture adhesive Fluticasone Propionate 2 spray 01/28/23 09:00 01/31/23 10:41 Fluticasone Nasal [place] 16gm Btl NASAL Not Given DAILY ETHAN Piperacillin Sod/Tazobactam 50 mls @ 12.5 mls/hr 01/25/23 17:00 01/31/23 17:53 Sod 3.375 gm/ Sodium Chloride IV 12.5 mls/hr Q8H ETHAN Administration Protocol Ipratropium [place] 0.5 mg 01/28/23 14:00 01/31/23 13:55 Ipratropium 0.5 Mg/2.5 Ml Neb INHALATION 0.5 mg Q6H.RESP ETHAN Administration Levalbuterol HCl 0.63 mg 01/28/23 14:00 01/31/23 13:55 Levalbuterol 0.63 Mg/3 Ml Neb INHALATION 0.63 mg Q6H.RESP ETHAN Administration Magnesium Lactate 252 mg 01/28/23 09:00 01/31/23 17:53 Magnesium Lactate 84 Mg Tablet PO 252 mg BID ETHAN Administration Metolazone 2.5 mg 01/29/23 14:00 01/31/23 09:49 Metolazone 5 Mg Tablet PO 2.5 mg DAILY ETHAN Administration Metoprolol Tartrate 25 mg 01/30/23 09:05 01/31/23 20:29 Metoprolol Tartrate 25 Mg Tablet PO 25 mg BID@0900,2100 ETHAN Administration Ondansetron HCl 4 mg 01/25/23 13:38 01/27/23 13:56 Ondansetron 2 Mg/Ml Sdv 2 Ml IVP 4 mg Q8H PRN Administration vomiting, or N/V if npo Pantoprazole Sodium 40 mg 01/26/23 09:00 01/31/23 09:[address] 40 Mg Tablet PO 40 mg DAILY ETHAN Administration Ropinirole HCl 0.5 mg 01/28/23 21:00 01/31/23 20:30 Ropinirole 0.25 Mg Tablet PO 0.5 mg BEDTIME ETHAN Administration Sodium Chloride 1 gm 01/30/23 18:00 01/31/23 17:53 Sodium Chloride 1 Gm Tablet PO 1 gm BID ETHAN Administration Warfarin Sodium 4 mg 01/25/23 17:00 01/27/23 13:57 Warfarin 4 Mg Tablet PO 4 mg [id number]@1400 ETHAN Administration PFSH Acute PFSH: Medical History Abdominal distention Acute hyponatremia Carotid artery stenosis Carotid disease, bilateral Cellulitis Chest pain CHF (congestive heart failure), NYHA class III Diastolic heart failure with EF of 55 to 60% COPD (chronic obstructive pulmonary disease) Dyslipidemia Femoral artery occlusion Hypertension Lymphedema of both lower extremities PAD (peripheral artery disease) Peripheral edema Peripheral vascular disease Respiratory failure Smoker SOB (shortness of breath) Superficial femoral artery occlusion TIA (transient ischemic attack) Uncontrolled hypertension Venous stasis dermatitis of right lower extremity Surgical History S/P peripheral artery angioplasty with stent placement S/P vascular surgery Status post carotid surgery (~2012) bilateral Family History Other CAD (coronary artery disease) Social History Smoking and tobacco status: former smoker Quit status (tobacco): considering quitting Second hand smoke exposure: Yes Alcohol intake: never Substance/Drug Use: never Caregiver/support person: Yes Lives independently: Yes Household members: spouse Marital status: service: No Current occupational status: retired Current gender identity: Female Vitals/I&O/Wt Last Vital Signs Temp 98.2 F 01/31/23 15:40 Pulse 101 H 01/31/23 15:40 Resp 18 01/31/23 15:40 BP 90/66 01/31/23 15:40 Pulse Ox 93 01/31/23 15:40 O2 Del Method Heated High Flow 01/31/23 15:40 O2 Flow Rate 35 01/31/23 14:55 FiO2 58 01/31/23 14:55 01/31/23 01/31/23 01/31/23 06:59 14:59 22:59 Intake Total 50 / 1000 290 / 290 300 / 590 Output Total 650 / 1250 750 / 750 1325 / 2075 Balance -600 / -250 -460 / -460 -1025 / -1485 Weight last 48 hrs Weight 205 lb 3.2 oz Weight 207 lb 2 oz Physical Exam Narrative: General: alert, NAD HEENT: conj clear, EOMI, PERRL, mmm, Neck: supple, no meningismus Heme: no cervical LAP Respiratory: Inspection: No visible deformity of the chest wall Palpation: Trachea is mildly deviated to the right, bilateral symmetric expan tg Percussion: Bilateral tympanic percussion note both anterior and posteriorly Auscultation:There is minimal Bilateral bibasilar crackles Cardiovascular: rrr, nl s1s2, no mrg Abdomen: soft, nt, nd, no r/g, bs+ Extremities: pulses +, no edema, no c/c : no CVA tenderness Skin: intact, no rash MSK: no back or neck pain Neurologic: grossly intact Urinary Catheter Management: Monsalve: Cath Placed During This Visit: yes Reason for Continuing Indwelling Catheter: Accurate Measurement of Urinary Output in Critically Ill Patients Urinary Catheter Date of Insertion: 01/25/23 Urinary Catheter Time of Insertion: 15:00 Data 02/01/23 08:51 02/01/23 18:48 Other Labs: Radiology Impressions Chest CT 01/28/23 11:24 IMPRESSION: 1. New mild pulmonary edema and possible pneumonitis. 2. Small bilateral pleural effusions, RIGHT greater than LEFT. 3. Compressive atelectasis at the lung bases. 4. Cardiomegaly. 5. Atherosclerosis thoracic and suprarenal abdominal aorta. Chest X-Ray 01/29/23 11:03 IMPRESSION: There are findings consistent with congestive heart failure with pulmonary edema especially in the lung bases with small pleural effusions. This has worsened since previous chest x-ray. Modified Barium Swallow 01/30/23 09:06 IMPRESSION: Modified barium swallow as above. Laboratory Results WBC 15.0 10^3/uL (4.0-10.0) H 02/01/23 08:51 Corrected WBC Cancelled 01/27/23 04:11 RBC 3.48 10^6/uL (4.1-5.3) L 02/01/23 08:51 Hgb 9.6 g/dL (11.5-15.3) L 02/01/23 08:51 Hct 30.8 % (37.0-47.0) L 02/01/23 08:51 MCV 88.5 fl (81-99) 02/01/23 08:51 MCH 27.6 pg (28.0-34.0) L 02/01/23 08:51 MCHC 31.2 g/dL (30.0-36.0) 02/01/23 08:51 RDW 15.8 % (12.1-15.1) H 02/01/23 08:51 Plt Count 315 10^3/cmm (130-400) 02/01/23 08:51 MPV 9.9 fL (7.4-10.4) 02/01/23 08:51 Gran % Cancelled 01/27/23 04:11 Neut % (Auto) 85.9 % 02/01/23 08:51 Lymph % (Auto) 4.6 % 02/01/23 08:51 [place] % (Auto) 7.3 % 02/01/23 08:51 Eos % (Auto) 1.0 % 02/01/23 08:51 Baso % (Auto) 0.1 % 02/01/23 08:51 Neut # (Auto) 12.84 10^3/uL (1.8-7.7) H 02/01/23 08:51 Lymph # (Auto) 0.7 10^3/uL (0.8-4.8) L 02/01/23 08:51 [place] # (Auto) 1.1 10^3/uL (0.2-0.9) H 02/01/23 08:51 Eos # (Auto) 0.2 10^3/uL (0.0-0.8) 02/01/23 08:51 Baso # (Auto) 0.0 10^3/uL (0.0-0.1) 02/01/23 08:51 Absolute Gran (auto) Cancelled 01/27/23 04:11 Nucleated RBC % (auto) 0 % 02/01/23 08:51 Nucleated RBCs # 0.0 /100WBC 02/01/23 08:51 PT 35.00 SECONDS (12.1-14.9) H 02/01/23 04:56 INR 3.32 (0.8-1.2) H 02/01/23 04:56 Specimen Type Arterial 02/01/23 08:02 Sample Site Radial, right 02/01/23 08:02 ABG pH 7.51 (7.35-7.45) H 02/01/23 08:02 ABG pCO2 59.2 mmHg (35-45) H 02/01/23 08:02 ABG pO2 115.0 mmHg (80.0-100.0) H 02/01/23 08:02 ABG HCO3 46.7 mmol/L (22-26) H 02/01/23 08:02 ABG O2 Saturation 99.7 02/01/23 08:02 ABG Base Excess 20.8 mmol/L (-2.0-2.0) H 02/01/23 08:02 Joe Test Pos 02/01/23 08:02 A-a O2 Gradient 44.8 mmHg (5-10) H 02/01/23 08:02 Hematocrit 31.5 % (37-47) L 02/01/23 08:02 Hgb O2 Saturation 97.7 % (95-100) 02/01/23 08:02 Carboxyhemoglobin 1.5 %THgb (0.4-20.1) 02/01/23 08:02 Methemoglobin 0.4 % (0.4-1.5) 02/01/23 08:02 Total Hemoglobin 10.3 g/dL (12-16) L 02/01/23 08:02 Sodium 136.0 mmol/L (131-143) 02/01/23 08:02 Potassium 2.8 mmol/L (3.5-5.0) L 02/01/23 08:02 Glucose 104.0 mg/dL (70-115) 02/01/23 08:02 Ionized Calcium 1.1 mmol/L (1.1-1.4) 02/01/23 08:02 O2 Delivery Device Nc 02/01/23 08:02 O2 Liters/Min 40.0 % 02/01/23 08:02 FiO2 75.0 % 02/01/23 08:02 Licensed Nuclear Control Room Operator ID Vashti 02/01/23 08:02 Sodium 139 mmol/L (136-145) 02/01/23 18:48 Potassium 3.5 mmol/L (3.5-5.1) 02/01/23 18:48 Chloride 86 mmol/L (98-107) L 02/01/23 18:48 Carbon Dioxide 42 mmol/L (22-29) H* 02/01/23 18:48 Anion Gap 14.5 (5-19) 02/01/23 18:48 BUN 70 mg/dL (8-23) H 02/01/23 18:48 Creatinine 1.1 mg/dL (0.5-0.9) H 02/01/23 18:48 GFR Calculation Not Reportable 02/01/23 18:48 Glucose 115 mg/dL (65-115) 02/01/23 18:48 Calculated Osmolality 309 mOsm/kg (285-295) H 02/01/23 18:48 Lactic Acid 1.5 mmol/L (0.5-2.2) 01/25/23 15:40 Calcium 9.2 mg/dL (8.5-10.5) 02/01/23 18:48 Phosphorus 5.6 mg/dL (2.5-4.5) H 01/26/23 03:10 Magnesium 2.5 mg/dL (1.7-2.3) H 02/01/23 18:48 Total Bilirubin 1.5 mg/dL (0.15-1.2) H 02/01/23 08:51 AST 24 U/L (0-32) 02/01/23 08:51 ALT 20 U/L (0-33) 02/01/23 08:51 Alkaline Phosphatase 113 U/L (35-105) H 02/01/23 08:51 Troponin T Baseline 16 ng/L (0-10) H 01/25/23 10:08 Troponin T 120 Minute 14.66 ng/L (0-10) H 01/25/23 12:00 Delta Troponin T -1.34 ABS# (0-10) L 01/25/23 12:00 Troponin T Hi Sens 6Hr 13.84 ng/L (0-10) H 01/25/23 15:45 Troponin T Hi Sens 6Hr Delta -2.16 ng/L (0-12) L 01/25/23 15:45 C-Reactive Protein 324.0 mg/L (0.0-4.9) H 01/25/23 12:00 NT-Pro-B Natriuret Pep 2856 pg/mL (0-125) H 01/25/23 12:00 Total Protein 7.0 g/dL (6.6-8.7) 02/01/23 08:51 Albumin 3.8 g/dL (3.5-5.2) 02/01/23 08:51 Globulin 3.2 g/dL (1.3-4.6) 02/01/23 08:51 Procalcitonin 0.73 ng/mL (0-0.5) H 01/25/23 12:00 Urine Color Red (Yellow) 01/29/23 11:15 Urine Appearance Cloudy (CLEAR) A 01/29/23 11:15 Urine pH 5 (5-7) 01/29/23 11:15 Ur Specific [place] 1.020 (1.005-1.030) 01/29/23 11:15 Urine Protein 2+ (Negative) H 01/29/23 11:15 Urine Glucose (UA) Norm (Normal) 01/29/23 11:15 Urine Ketones Negative (Negative) 01/29/23 11:15 Urine Blood 3+ (Negative) H 01/29/23 11:15 Urine Nitrate Negative (Negative) 01/29/23 11:15 Urine Bilirubin Neg (Negative) 01/29/23 11:15 Urine Urobilinogen Neg mg/dL (Negative) 01/29/23 11:15 Ur Leukocyte Esterase 1+ (Negative) H 01/29/23 11:15 Urine RBC >100 /hpf (0-2) H 01/29/23 11:15 Urine WBC 10-15 /hpf (0-5) H 01/29/23 11:15 Ur Eosinophil Smear 0 (0-0) 01/28/23 15:00 Ur Squamous Epith Cells 10-15 /hpf (0-5) H 01/29/23 11:15 Uric Acid Crystals 10-15 /hpf H 01/29/23 11:15 Amorphous Sediment Not Reportable 01/29/23 11:15 Urine Bacteria 1+ /hpf (NONE) H 01/29/23 11:15 Hyaline Casts 0-4 /lpf H 01/29/23 11:15 Urine Mucus 1+ /hpf 01/29/23 11:15 Urine Eosinophils No eosinophils seen 01/28/23 15:00 Ur Random Sodium 38 mmol/L 01/28/23 15:00 Ur Random Potassium 32 mmol/L 01/28/23 15:00 Ur Random Chloride 61 mmol/L 01/28/23 15:00 Urine Creatinine 40 mg/dL (28-217) 01/28/23 15:00 Nasal Influ A H1 2008 PCR Not detected (NOT DETECT) 01/29/23 11:20 Vancomycin Trough 13.7 ug/mL (10-15) 01/28/23 15:35 Adenovirus (PCR) Not detected (NOT DETECT) 01/29/23 11:20 C. pneumoniae DNA (PCR) Not detected (NOT DETECT) 01/29/23 11:20 Coronavirus 229E (PCR) Not detected (NOT DETECT) 01/29/23 11:20 Human Metapneumovir PCR Not detected (NOT DETECT) 01/29/23 11:20 Influenza A (H1) PCR Not detected (NOT DETECT) 01/29/23 11:20 Influenza A (H3) PCR Not detected (NOT DETECT) 01/29/23 11:20 Influenza Type A (PCR) Not detected (NOT DETECT) 01/29/23 11:20 Influenza Type B (PCR) Not detected (NOT DETECT) 01/29/23 11:20 M. pneumoniae (PCR) Not detected (NOT DETECT) 01/29/23 11:20 Parainfluenza 1 (PCR) Not detected (NOT DETECT) 01/29/23 11:20 Parainfluenza 2 (PCR) Not detected (NOT DETECT) 01/29/23 11:20 Parainfluenza 3 (PCR) Not detected (NOT DETECT) 01/29/23 11:20 Parainfluenza 4 (PCR) Not detected (NOT DETECT) 01/29/23 11:20 RSV Type A (PCR) Not detected (NOT DETECT) 01/29/23 11:20 RSV Type B (PCR) Not detected (NOT DETECT) 01/29/23 11:20 Entero/Rhino (PCR) Not detected (NOT DETECT) 01/29/23 11:20 SARS-CoV-2 (PCR) Not detected (NOT DETECT) 01/29/23 11:20 Micro: Microbiology 01/29/23 11:15 Urine Culture - Final Urine,Clean Catch 01/25/23 15:45 Blood Culture - Final Blood NO GROWTH AFTER 5 DAYS 01/25/23 15:40 Blood Culture - Final Blood NO GROWTH AFTER 5 DAYS A&P Assessment and plan (1) Respiratory failure with hypoxia: Currently requiring high flow nasal cannula 35 L 50% Patient had underlying CHF and currently in exacerbation-triggered by A-fib RVR Echocardiogram 01/26/2023 showed normal LV size systolic function with EF 60%. Currently rate is controlled. Currently on amiodarone 400 Mg p.o. twice daily. Metoprolol 25 Mg p.o. twice daily Currently she is on Lasix 40 Mg every 12-she is net +3 L Since admission - Recommended to increase diuretic regimen and target net negative fluid balance We will monitor electrolytes, input output, renal functions Concern for underlying pneumonia-however patient is covered with Zosyn And white count has been improving (2) CHF exacerbation: (3) CHF (congestive heart failure), NYHA class III: Qualifiers: Congestive heart failure chronicity: acute on chronic Congestive heart failure type: diastolic Qualified Code(s): I50.33 - Acute on chronic diastolic (congestive) heart failure Plan Recommendations conveyed to hospitalist, RN, RT taking care of the patient Coding Level of Care Code 49175 Diagnoses Respiratory failure with hypoxia J96.91 CHF exacerbation I50.9 CHF (congestive heart failure), NYHA class III I50.33 Congestive heart failure chronicity: acute on chronic Congestive heart failure type: diastolic Time Spent (min) 65
[2023-02-01] VITALS (18 sets, daily range): BP systolic 93–123; BP diastolic 54–73; PULSE 90–121; RESP 15–29; TEMP 36.5–37; O2SAT 92–98
[2023-02-01] MEDS: piperacillin-tazobactam 3.375 GM in sodium chloride 0.9% (plus) 50 ML IV ×3 (00:34→17:42)
[2023-02-01] MEDS: ipratropium 0.5 mg/2.5 mL Neb INHALATION ×4 (02:16→20:28)
[2023-02-01] MEDS: levalbuterol 0.63 mg/3 mL Neb INHALATION ×4 (02:16→20:28)
[2023-02-01] MEDS: bumetanide 0.25 mg/mL SDV 10 mL 2 MG IVP ×2 (04:34→14:35)
[2023-02-01 05:52] LABS: INR 3.32 (0.8-1.2)
[2023-02-01 08:13] LABS: ABG PCO2 59.2 mmHg (35-45); ABG PH Result 7.51 (7.35-7.45); Alveolar-Arterial Oxygen Gradi 44.8 mmHg (5-10); Arterial Blood Gas Hematocrit 31.5 % (37-47); Base Excess ABG 20.8 mmol/L (-2.0-2.0); Blood Gas Allen Test Pos; Blood Gas Operator Identificat WALCI; Blood Gas Sample Site Radial, right; Blood Gas Sample Type Arterial; Carboxyhemoglobin 1.5 %THgb (0.4-20.1); HCO3 ABG 46.7 mmol/L (22-26); HGB O2 Sat 97.7 % (95-100); Ionized Calcium Level - ABG 1.1 mmol/L (1.1-1.4); Methemoglobin 0.4 % (0.4-1.5); Oxygen Device NC; Oxygen Saturation ABG 99.7; Potassium Level - ABG 2.8 mmol/L (3.5-5.0); Total Hemoglobin 10.3 g/dL (12-16)
[2023-02-01] MEDS: budesonide 0.5 mg/2 mL Neb INHALATION ×2 (08:25→20:28)
[2023-02-01 09:02] LABS: Basophils % 0.1 %; Eosinophils # 0.2 10^3/uL (0.0-0.8); Hematocrit 30.8 % (37.0-47.0); Hemoglobin 9.6 g/dL (11.5-15.3); Lymphocytes # 0.7 10^3/uL (0.8-4.8); Lymphocytes % 4.6 %; Mean Corpuscular HGB Conc 31.2 g/dL (30.0-36.0); Mean Corpuscular Hemoglobin 27.6 pg (28.0-34.0); Mean Corpuscular Volume 88.5 fl (81-99); Mean Platelet Volume 9.9 fL (7.4-10.4); Monocytes # 1.1 10^3/uL (0.2-0.9); Monocytes % 7.3 %; Neutrophils # 12.84 10^3/uL (1.8-7.7); Neutrophils % 85.9 %; Nucleated Red Blood Cells % 0 %; Platelet Count 315 10^3/cmm (130-400); Red Blood Count 3.48 10^6/uL (4.1-5.3); Red Cell Distribution Width 15.8 % (12.1-15.1)
[2023-02-01] MEDS: sodium chloride 1 gm Tablet PO (09:12)
[2023-02-01] MEDS: metOLazone 5 MG Tablet 2.5 MG PO (09:12)
[2023-02-01] MEDS: magnesium lactate 84 mg Tablet 252 MG PO ×2 (09:12→17:42)
[2023-02-01] MEDS: fluticasone nasal spray 16gm Btl 2 SPRAY NASAL (09:12)
[2023-02-01] MEDS: pantoprazole DR 40 mg Tablet PO (09:12)
[2023-02-01] MEDS: amiodarone 200 mg Tablet 400 MG PO ×2 (09:12→17:42)
[2023-02-01] MEDS: aspirin 81 mg Chew Tablet PO (09:12)
[2023-02-01] MEDS: metoprolol tartrate 25 mg Tablet PO ×2 (09:20→20:08)
[2023-02-01 09:23] LABS: Alanine Aminotransferase 20 U/L (0-33); Albumin Level 3.8 g/dL (3.5-5.2); Alkaline Phosphatase 113 U/L (35-105); Anion Gap 13.9 (5-19); Aspartate Amino Transferase 24 U/L (0-32); Blood Urea Nitrogen 68 mg/dL (8-23); Calcium 8.9 mg/dL (8.5-10.5); Carbon Dioxide 40 mmol/L (22-29); Chloride 85 mmol/L (98-107); Globulin 3.2 g/dL (1.3-4.6); Glucose 98 mg/dL (65-115); Osmolality Calculated 302 mOsm/kg (285-295); Sodium 136 mmol/L (136-145); Total Bilirubin 1.5 mg/dL (0.15-1.2)
[2023-02-01 09:36] LABS: Potassium 2.9 mmol/L (3.5-5.1)
--- NOTE | 2023-02-01 10:48 | PC.SOCIAL ---
Imm update Imm updated with patient at bedside. Copy of page 2 provided. Patient verbalized understanding. Copy in chart initialed, dated and timed.
[2023-02-01] MEDS: potassium chloride oral liq 20 mEq/15 mL UDC 80 MEQ PO (11:31)
--- NOTE | 2023-02-01 16:28 | P.PN_ITS ---
Subjective Subjective: No acute events overnight. Today morning on examination patient doing a lot better. She is down to 8 L of high flow nasal cannula saturating more than 92%. States feeling a lot better. Able to stand up around the bed without any difficulty in breathing or dizziness today. Documented urine output of around 3.3 L yesterday with net negative of 2.5 L. Blood work appreciated for stable white count and hemoglobin. INR of 3.3 to, ABG showing improvement in oxygenation, chemistry showing hypokalemia with potassium of 2.9, improvement in creatinine down to 1 and BUN of 68. Otherwise patient has remained afebrile. Medications: Reviewed: Yes Vitals/I&O/Wt Last Vital Signs Temp 98.3 F 02/01/23 12:00 Pulse 121 H 02/01/23 16:20 Resp 29 H 02/01/23 16:20 BP 94/69 02/01/23 16:20 Pulse Ox 95 02/01/23 16:20 O2 Del Method High Flow Nasal Cannula 02/01/23 16:20 O2 Flow Rate 8 02/01/23 16:20 FiO2 50 02/01/23 13:16 02/01/23 02/01/23 02/01/23 06:59 14:59 22:59 Intake Total 50 / 810 480 / 480 Output Total 1300 / 3375 1150 / 1150 Balance -1250 / -2565 480 / 480 -1150 / -670 Weight last 48 hrs Weight 92.261 kg Weight 93.077 kg Physical Exam Narrative: General: AOx3, no acute distress, laying in bed, heated high flow oxygen supplementation Eyes: conjunctiva clear w/o exudate or hemorrhage. non-icteric, EOM intact, PERRLA. no signs of nystagmus Nose: nasal mucosa pink, septum midline Oropharynx: good dentition Neck: FROM, no lymphadenopathy Chest: atraumatic, symmetrical CVD: S1-S2 irregularly irregular, tachycardia, no S3, 2/6 CHAD at LSB, 2+ pulse x 4 extremities. mild JVD, no carotid bruit. JVD mildly elevated Lungs: Normal vesicular breath sounds all over lung long with conductive air sounds, fine crackles mid chest bilaterally Abdomen: mild sabi-umbilical ttp, mild distension, soft, NABS. No hepatosplenomegaly, Extremities: FROM and 5/5 strength in BUE and BLE. -bilateral legs with 2+ edema, lymphedema, weeping with clear discharge, no open wounds or areas to attain culture. ttp mid calf distally. NVI. wiggles toes Neuro: NVI. Urinary Catheter Management: Monsalve: Cath Placed During This Visit: yes Reason for Continuing Indwelling Catheter: Acute Urinary Retention or Obstruction Urinary Catheter Date of Insertion: 01/25/23 Urinary Catheter Time of Insertion: 15:00 Data 02/01/23 08:51 02/01/23 08:51 Micro: Microbiology 01/29/23 11:15 Urine Culture - Final Urine,Clean Catch A&P Assessment and plan (1) Respiratory failure with hypoxia: Most likely in setting of acute exacerbation of chronic diastolic congestive h eart failure in setting of atrial fibrillation with RVR along with COPD exacerbation in setting of mild pneumonia. Appreciate CT chest results. Continue with heated high flow for now. Currently 45 L 45%. Wean keeping saturation over 90%. BiPAP nightly when sleeping. Continue Pulmicort twice daily, Xopenex and ipratropium every 6 hours. Aggressive pulmonary toilet with chest vest. Out of bed whenever possible. Patient getting euvolemic since admission. Seems intra volume depleted. Contin ue with albumin. Continue with Bumex as below. Strict input output charting, daily weights. Monsalve catheterization. Change fluid restriction to 1 L. Slight concerns for aspiration pneumonia. Appreciate modified barium swallow. Diet changed accordingly. Sputum culture pending. Respiratory viral panel negative, appreciate repeat chest x-ray and urinalysis. MRSA negative. Stop vancomycin. Continue with Zosyn. (2) Atrial fibrillation with RVR: Heart rate better controlled. Continue with amiodarone 400 mg twice daily. Plan for 40 mg twice daily for 7 days followed by 200 mg twice daily for 7 days and thereafter 200 mg daily. Blood pressure is better. Start on metoprolol 25 mg twice daily. Digoxin load today. Restart Coumadin once INR in target. (3) CHF (congestive heart failure), NYHA class III: Echocardiogram shows an EF of 60% with mild MR. Treatment as above. Qualifiers: Congestive heart failure chronicity: acute on chronic Congestive heart failure type: diastolic Qualified Code(s): I50.33 - Acute on chronic diastolic (congestive) heart failure (4) Supratherapeutic INR: Goal INR of 2-3 for A-fib. INR still Supratherapeutic but improving. Hold off on Coumadin. Pharmacy consult for dosing of warfarin. (5) KATHI (acute kidney injury): Resolved. Most likely in setting of congestive heart failure. Continue to monitor renal functions daily. Medical treatment patient done for nephrotoxic drugs. Strict input and output charting. Renal nondialysis diet. (6) Hyponatremia: Acute on chronic. Most recently ranging 1 28-1 30. Resolved. Appreciate urine lites, urine creatinine. Most likely hypervolemic hyponat remia. Continue albumin 25 g 25% every 8 hourly for 1 more day. Continue to monitor daily. Hold salt tablets for now. (7) Hyperkalemia: Resolved today. Monitor daily. (8) Cellulitis: Chronic. Wound culture taken on admission shows Proteus, Moraxella, Corynebacterium. Most likely contaminant. For now continue with IV Zosynas above for overall 7-day course. Antibiotics will cover for the culture results. Wound therapy (9) Wound, open, leg: (10) PAD (peripheral artery disease): (11) Hypertension: (12) Warfarin anticoagulation: (13) Carotid disease, bilateral: (14) COPD (chronic obstructive pulmonary disease): (15) CHF exacerbation: (16) Peripheral neuropathy: Most likely in setting of PAD and chronic smoker. Start on Requip 0.5 at bedtime and gabapentin 100 mg 3 times daily. Plan Hematuria: Most likely traumatic in setting of supratherapeutic INR. Clearing up. CODE STATUS: DNR/DNI. Regular diet. Protonix for PUD prophylaxis Supratherapeutic INR will suffice as DVT prophylaxis. Plan for today: Respiratory status improving. Switched over from heated high flow to high flow nasal cannula. Currently on 12 L. Continue to wean off oxygen keeping saturation over 88%. We will decrease Bumex to 2 mg twice daily. Hold off on metolazone. Albumin 25 g 25% every 8 hour for 1 day. Continue with amiodarone and metoprolol. Heart rate slightly elevated. If continues to remain elevated will plan for digoxin. Sodium level improving. Will hold off on salt tablets for now. Replete 80 mg of oral potassium. Repeat BMP in afternoon. Monitor INR daily. Still mildly supratherapeutic. Restart warfarin once INR in goal of 2-3. Monitor blood pressures. Appreciate pulmonology recommendations. Continue with PT. Discharge plan: Plan to discharge home with caregiver and home health once medically stable. Patient remains critically sick. Attestations Medical Necessity Statement*: Requires further hospitalization for management of resolving respiratory failure in setting of congestive heart failure, atrial fibrillation with rapid ventricular response, supratherapeutic INR Coding Level of Care Code Critical Care >/= 30 minutes Critical care time (in minutes): 50 The high probability of a clinically significant, sudden or life threatening deterioration, as referenced in this documentation, required my full and direct attention, intervention and personal management. The critical care time shown is in addition to time spent performing any reported separately billable procedures and includes the following: [x] Data and vital sign review and interpretation [x ] Patient assessment, examination and intervention [x] Medication orders and management [x] Patient/Family updates as able [x] Care Coordination and Documentation. Diagnoses Respiratory failure with hypoxia J96.91 Atrial fibrillation with RVR I48.91 CHF (congestive heart failure), NYHA class III I50.33 Congestive heart failure chronicity: acute on chronic Congestive heart failure type: diastolic Supratherapeutic INR R79.1 KATHI (acute kidney injury) N17.9 Hyponatremia E87.1 Hyperkalemia E87.5 Cellulitis L03.90 Wound, open, leg S81.809A PAD (peripheral artery disease) I73.9 Hypertension I10 Warfarin anticoagulation Z79.01 Carotid disease, bilateral I77.9 COPD (chronic obstructive pulmonary disease) J44.9 CHF exacerbation I50.9 Peripheral neuropathy G62.9
[2023-02-01 17:14] LABS: Anion Gap 14.6 (5-19); Blood Urea Nitrogen 68 mg/dL (8-23); Calcium 8.9 mg/dL (8.5-10.5); Chloride 86 mmol/L (98-107); Glucose 112 mg/dL (65-115); Osmolality Calculated 307 mOsm/kg (285-295); Potassium 3.6 mmol/L (3.5-5.1); Sodium 138 mmol/L (136-145)
[2023-02-01 17:16] LABS: Carbon Dioxide 41 mmol/L (22-29)
[2023-02-01] MEDS: albumin 25 G/100 ML BAG 60 G IV (17:41)
[2023-02-01] MEDS: digoxin 250 mcg/ml INJ 2 mL 500 MCG IVP (17:41)
[2023-02-01] MEDS: atorvastatin 40 mg Tablet 80 MG PO (17:43)
[2023-02-01 19:14] LABS: Anion Gap 14.5 (5-19); Blood Urea Nitrogen 70 mg/dL (8-23); Calcium 9.2 mg/dL (8.5-10.5); Chloride 86 mmol/L (98-107); Glucose 115 mg/dL (65-115); Magnesium 2.5 mg/dL (1.7-2.3); Osmolality Calculated 309 mOsm/kg (285-295); Potassium 3.5 mmol/L (3.5-5.1); Sodium 139 mmol/L (136-145)
[2023-02-01 19:32] LABS: Carbon Dioxide 42 mmol/L (22-29)
--- NOTE | 2023-02-01 19:38 | PC.NURSE ---
humberto with Dr. Pena regarding patients evening labs. Received orders to give diamox 250 ONCE>
[2023-02-01] MEDS: acetaZOLAMIDE 250 mg Tablet PO (20:08)
[2023-02-01] MEDS: ropinirole 0.25 mg Tablet 0.5 MG PO (20:08)
--- NOTE | 2023-02-01 21:28 | PM.PN ---
Subjective Subjective: Seen patient at bedside today morning No acute events overnight. Patient resting comfortably in her bed-40 L 75% % high flow nasal cannula saturating 97%-ABG showed PaO2 115-informed respiratory therapy to come down on FiO2 BMP showed potassium 2.9-she received KCl 80 mEq oral supplementation Labs reveal metabolic alkalosis-on Bumex 2 mg 3 times daily-it was tapered down to 2 Mg twice daily; patient to receive albumin infusion-now added Diamox 250 Mg Next other labs and imaging reviewed reviewed Medications: Reviewed: Yes Vitals/I&O/Wt Last Vital Signs Temp 97.7 F 02/01/23 20:00 Pulse 103 H 02/01/23 20:32 Resp 20 H 02/01/23 20:00 BP 101/63 02/01/23 20:00 Pulse Ox 98 02/01/23 20:32 O2 Del Method Nasal Cannula 02/01/23 20:00 O2 Flow Rate 8 02/01/23 16:20 FiO2 45 02/01/23 20:32 02/01/23 02/01/23 02/01/23 06:59 14:59 22:59 Intake Total 50 / 810 530 / 530 100 / 630 Output Total 1300 / 3375 1150 / 1150 Balance -1250 / -2565 530 / 530 -1050 / -520 Weight last 48 hrs Weight 203 lb 6.4 oz Weight 205 lb 3.2 oz Physical Exam Narrative: General: alert, NAD HEENT: conj clear, EOMI, PERRL, mmm, Neck: supple, no meningismus Heme: no cervical LAP Respiratory: Inspection: No visible deformity of the chest wall Palpation: Trachea is mildly deviated to the right, bilateral symmetric expansion Percussion: Bilateral tympanic percussion note both anterior and posteriorly Auscultation:There is minimal Bilateral bibasilar crackles Cardiovascular: rrr, nl s1s2, no mrg Abdomen: soft, nt, nd, no r/g, bs+ Extremities: pulses +, no edema, no c/c : no CVA tenderness Skin: intact, no rash MSK: no back or neck pain Neurologic: grossly intact Urinary Catheter Management: Monsalve: Cath Placed During This Visit: yes Reason for Continuing Indwelling Catheter: Other Urinary Catheter Date of Insertion: 01/25/23 Urinary Catheter Time of Insertion: 15:00 Data 02/02/23 02:58 02/02/23 02:58 Other Labs: Radiology Impressions Chest CT 01/28/23 11:24 IMPRESSION: 1. New mild pulmonary edema and possible pneumonitis. 2. Small bilateral pleural effusions, RIGHT greater than LEFT. 3. Compressive atelectasis at the lung bases. 4. Cardiomegaly. 5. Atherosclerosis thoracic and suprarenal abdominal aorta. Chest X-Ray 01/29/23 11:03 IMPRESSION: There are findings consistent with congestive heart failure with pulmonary edema especially in the lung bases with small pleural effusions. This has worsened since previous chest x-ray. Modified Barium Swallow 01/30/23 09:06 IMPRESSION: Modified barium swallow as above. Laboratory Results WBC 17.6 10^3/uL (4.0-10.0) H 02/02/23 02:58 Corrected WBC Cancelled 01/27/23 04:11 RBC 3.19 10^6/uL (4.1-5.3) L 02/02/23 02:58 Hgb 8.7 g/dL (11.5-15.3) L 02/02/23 02:58 Hct 28.5 % (37.0-47.0) L 02/02/23 02:58 MCV 89.3 fl (81-99) 02/02/23 02:58 MCH 27.3 pg (28.0-34.0) L 02/02/23 02:58 MCHC 30.5 g/dL (30.0-36.0) 02/02/23 02:58 RDW 15.8 % (12.1-15.1) H 02/02/23 02:58 Plt Count 293 10^3/cmm (130-400) 02/02/23 02:58 MPV 10.2 fL (7.4-10.4) 02/02/23 02:58 Gran % Cancelled 01/27/23 04:11 Neut % (Auto) 87.4 % 02/02/23 02:58 Lymph % (Auto) 4.3 % 02/02/23 02:58 [place] % (Auto) 5.8 % 02/02/23 02:58 Eos % (Auto) 1.4 % 02/02/23 02:58 Baso % (Auto) 0.2 % 02/02/23 02:58 Neut # (Auto) 15.33 10^3/uL (1.8-7.7) H 02/02/23 02:58 Lymph # (Auto) 0.8 10^3/uL (0.8-4.8) 02/02/23 02:58 [place] # (Auto) 1.0 10^3/uL (0.2-0.9) H 02/02/23 02:58 Eos # (Auto) 0.3 10^3/uL (0.0-0.8) 02/02/23 02:58 Baso # (Auto) 0.0 10^3/uL (0.0-0.1) 02/02/23 02:58 Absolute Gran (auto) Cancelled 01/27/23 04:11 Nucleated RBC % (auto) 0 % 02/02/23 02:58 Nucleated RBCs # 0.0 /100WBC 02/02/23 02:58 PT 30.00 SECONDS (12.1-14.9) H 02/02/23 02:58 INR 2.74 (0.8-1.2) H 02/02/23 02:58 Specimen Type Arterial 02/01/23 08:02 Sample Site Radial, right 02/01/23 08:02 ABG pH 7.51 (7.35-7.45) H 02/01/23 08:02 ABG pCO2 59.2 mmHg (35-45) H 02/01/23 08:02 ABG pO2 115.0 mmHg (80.0-100.0) H 02/01/23 08:02 ABG HCO3 46.7 mmol/L (22-26) H 02/01/23 08:02 ABG O2 Saturation 99.7 02/01/23 08:02 ABG Base Excess 20.8 mmol/L (-2.0-2.0) H 02/01/23 08:02 Joe Test Pos 02/01/23 08:02 A-a O2 Gradient 44.8 mmHg (5-10) H 02/01/23 08:02 Hematocrit 31.5 % (37-47) L 02/01/23 08:02 Hgb O2 Saturation 97.7 % (95-100) 02/01/23 08:02 Carboxyhemoglobin 1.5 %THgb (0.4-20.1) 02/01/23 08:02 Methemoglobin 0.4 % (0.4-1.5) 02/01/23 08:02 Total Hemoglobin 10.3 g/dL (12-16) L 02/01/23 08:02 Sodium 136.0 mmol/L (131-143) 02/01/23 08:02 Potassium 2.8 mmol/L (3.5-5.0) L 02/01/23 08:02 Glucose 104.0 mg/dL (70-115) 02/01/23 08:02 Ionized Calcium 1.1 mmol/L (1.1-1.4) 02/01/23 08:02 O2 Delivery Device Nc 02/01/23 08:02 O2 Liters/Min 40.0 % 02/01/23 08:02 FiO2 75.0 % 02/01/23 08:02 Melter Supervisor Oxygen Furnace ID [place] 02/01/23 08:02 Sodium 139 mmol/L (136-145) 02/02/23 02:58 Potassium 2.9 mmol/L (3.5-5.1) L 02/02/23 02:58 Chloride 85 mmol/L (98-107) L 02/02/23 02:58 Carbon Dioxide 43 mmol/L (22-29) H* 02/02/23 02:58 Anion Gap 13.9 (5-19) 02/02/23 02:58 BUN 72 mg/dL (8-23) H 02/02/23 02:58 Creatinine 1.1 mg/dL (0.5-0.9) H 02/02/23 02:58 GFR Calculation Not Reportable 02/02/23 02:58 Glucose 101 mg/dL (65-115) 02/02/23 02:58 Calculated Osmolality 309 mOsm/kg (285-295) H 02/02/23 02:58 Lactic Acid 1.5 mmol/L (0.5-2.2) 01/25/23 15:40 Calcium 9.2 mg/dL (8.5-10.5) 02/02/23 02:58 Phosphorus 5.6 mg/dL (2.5-4.5) H 01/26/23 03:10 Magnesium 2.5 mg/dL (1.7-2.3) H 02/01/23 18:48 Total Bilirubin 1.6 mg/dL (0.15-1.2) H 02/02/23 02:58 AST 28 U/L (0-32) 02/02/23 02:58 ALT 24 U/L (0-33) 02/02/23 02:58 Alkaline Phosphatase 96 U/L (35-105) 02/02/23 02:58 Troponin T Baseline 16 ng/L (0-10) H 01/25/23 10:08 Troponin T 120 Minute 14.66 ng/L (0-10) H 01/25/23 12:00 Delta Troponin T -1.34 ABS# (0-10) L 01/25/23 12:00 Troponin T Hi Sens 6Hr 13.84 ng/L (0-10) H 01/25/23 15:45 Troponin T Hi Sens 6Hr Delta -2.16 ng/L (0-12) L 01/25/23 15:45 C-Reactive Protein 324.0 mg/L (0.0-4.9) H 01/25/23 12:00 NT-Pro-B Natriuret Pep 2856 pg/mL (0-125) H 01/25/23 12:00 Total Protein 6.9 g/dL (6.6-8.7) 02/02/23 02:58 Albumin 4.2 g/dL (3.5-5.2) 02/02/23 02:58 Globulin 2.7 g/dL (1.3-4.6) 02/02/23 02:58 Procalcitonin 0.73 ng/mL (0-0.5) H 01/25/23 12:00 Urine Color Red (Yellow) 01/29/23 11:15 Urine Appearance Cloudy (CLEAR) A 01/29/23 11:15 Urine pH 5 (5-7) 01/29/23 11:15 Ur Specific [place] 1.020 (1.005-1.030) 01/29/23 11:15 Urine Protein 2+ (Negative) H 01/29/23 11:15 Urine Glucose (UA) Norm (Normal) 01/29/23 11:15 Urine Ketones Negative (Negative) 01/29/23 11:15 Urine Blood 3+ (Negative) H 01/29/23 11:15 Urine Nitrate Negative (Negative) 01/29/23 11:15 Urine Bilirubin Neg (Negative) 01/29/23 11:15 Urine Urobilinogen Neg mg/dL (Negative) 01/29/23 11:15 Ur Leukocyte Esterase 1+ (Negative) H 01/29/23 11:15 Urine RBC >100 /hpf (0-2) H 01/29/23 11:15 Urine WBC 10-15 /hpf (0-5) H 01/29/23 11:15 Ur Eosinophil Smear 0 (0-0) 01/28/23 15:00 Ur Squamous Epith Cells 10-15 /hpf (0-5) H 01/29/23 11:15 Uric Acid Crystals 10-15 /hpf H 01/29/23 11:15 Amorphous Sediment Not Reportable 01/29/23 11:15 Urine Bacteria 1+ /hpf (NONE) H 01/29/23 11:15 Hyaline Casts 0-4 /lpf H 01/29/23 11:15 Urine Mucus 1+ /hpf 01/29/23 11:15 Urine Eosinophils No eosinophils seen 01/28/23 15:00 Ur Random Sodium 38 mmol/L 01/28/23 15:00 Ur Random Potassium 32 mmol/L 01/28/23 15:00 Ur Random Chloride 61 mmol/L 01/28/23 15:00 Urine Creatinine 40 mg/dL (28-217) 01/28/23 15:00 Nasal Influ A H1 2009 PCR Not detected (NOT DETECT) 01/29/23 11:20 Vancomycin Trough 13.7 ug/mL (10-15) 01/28/23 15:35 Adenovirus (PCR) Not detected (NOT DETECT) 01/29/23 11:20 C. pneumoniae DNA (PCR) Not detected (NOT DETECT) 01/29/23 11:20 Coronavirus 229E (PCR) Not detected (NOT DETECT) 01/29/23 11:20 Human Metapneumovir PCR Not detected (NOT DETECT) 01/29/23 11:20 Influenza A (H1) PCR Not detected (NOT DETECT) 01/29/23 11:20 Influenza A (H3) PCR Not detected (NOT DETECT) 01/29/23 11:20 Influenza Type A (PCR) Not detected (NOT DETECT) 01/29/23 11:20 Influenza Type B (PCR) Not detected (NOT DETECT) 01/29/23 11:20 M. pneumoniae (PCR) Not detected (NOT DETECT) 01/29/23 11:20 Parainfluenza 1 (PCR) Not detected (NOT DETECT) 01/29/23 11:20 Parainfluenza 2 (PCR) Not detected (NOT DETECT) 01/29/23 11:20 Parainfluenza 3 (PCR) Not detected (NOT DETECT) 01/29/23 11:20 Parainfluenza 4 (PCR) Not detected (NOT DETECT) 01/29/23 11:20 RSV Type A (PCR) Not detected (NOT DETECT) 01/29/23 11:20 RSV Type B (PCR) Not detected (NOT DETECT) 01/29/23 11:20 Entero/Rhino (PCR) Not detected (NOT DETECT) 01/29/23 11:20 SARS-CoV-2 (PCR) Not detected (NOT DETECT) 01/29/23 11:20 A&P Assessment and plan (1) Respiratory failure with hypoxia: Currently requiring high flow nasal cannula 40 L 75%-ABG PaO2 115-patient saturating 97%-we will gradually taper off supplemental oxygen Patient had underlying CHF and currently in exacerbation-triggered by A-fib RVR Echocardiogram 01/26/2023 showed normal LV size systolic function with EF 60%. Currently rate is controlled. Currently on amiodarone 400 Mg p.o. twice daily. Metoprolol 25 Mg p.o. twice daily Currently Bumex 2 mg 3 times daily-urine output is good; renal functions are stable, CMP shows metabolic alkalosis-Bumex was decreased to 2 Mg twice daily she is to receive 2 albumin infusion-I am going to add Diamox 250 Mg We will monitor electrolytes, input output, renal functions Concern for underlying pneumonia-however patient is covered with Zosyn And white count has been improving (2) CHF exacerbation: (3) CHF (congestive heart failure), NYHA class III: Qualifiers: Congestive heart failure chronicity: acute on chronic Congestive heart failure type: diastolic Qualified Code(s): I50.33 - Acute on chronic diastolic (congestive) heart failure (4) Diuretic-induced hypokalemia: Potassium 2.9-supplemented with KCl 80 mEq-repeat potassium 3.5 Continue to monitor and supplement accordingly Plan Recommendations conveyed to hospitalist, RN, RT taking care of the patient Attestations Medical Necessity Statement*: She is gradually improving- Time Spent in Patient Care: Greater than 35 minutes (>than 50% of time spent in counselling and/or direct pt care on unit). Coding Level of Care Code 30685 Diagnoses Respiratory failure with hypoxia J96.91 CHF exacerbation I50.9 CHF (congestive heart failure), NYHA class III I50.33 Congestive heart failure chronicity: acute on chronic Congestive heart failure type: diastolic Diuretic-induced hypokalemia E87.6; T50.2X5A Time Spent (min) 44
[2023-02-02] VITALS (22 sets, daily range): BP systolic 98–123; BP diastolic 47–73; PULSE 65–102; RESP 3–28; TEMP 36.4–37.1; O2SAT 90–100
[2023-02-02] MEDS: albumin 25 G/100 ML BAG 60 G IV ×2 (00:17→08:57)
[2023-02-02] MEDS: piperacillin-tazobactam 3.375 GM in sodium chloride 0.9% (plus) 50 ML IV ×3 (02:02→17:49)
[2023-02-02] MEDS: ipratropium 0.5 mg/2.5 mL Neb INHALATION ×4 (02:22→19:55)
[2023-02-02] MEDS: levalbuterol 0.63 mg/3 mL Neb INHALATION ×4 (02:22→19:55)
[2023-02-02 03:25] LABS: Basophils % 0.2 %; Eosinophils # 0.3 10^3/uL (0.0-0.8); Eosinophils % 1.4 %; Hematocrit 28.5 % (37.0-47.0); Hemoglobin 8.7 g/dL (11.5-15.3); Lymphocytes # 0.8 10^3/uL (0.8-4.8); Lymphocytes % 4.3 %; Mean Corpuscular HGB Conc 30.5 g/dL (30.0-36.0); Mean Corpuscular Hemoglobin 27.3 pg (28.0-34.0); Mean Corpuscular Volume 89.3 fl (81-99); Mean Platelet Volume 10.2 fL (7.4-10.4); Monocytes % 5.8 %; Neutrophils # 15.33 10^3/uL (1.8-7.7); Neutrophils % 87.4 %; Nucleated Red Blood Cells % 0 %; Platelet Count 293 10^3/cmm (130-400); Red Blood Count 3.19 10^6/uL (4.1-5.3); Red Cell Distribution Width 15.8 % (12.1-15.1); White Blood Count 17.6 10^3/uL (4.0-10.0)
[2023-02-02 03:33] LABS: INR 2.74 (0.8-1.2)
[2023-02-02 03:46] LABS: Alanine Aminotransferase 24 U/L (0-33); Albumin Level 4.2 g/dL (3.5-5.2); Alkaline Phosphatase 96 U/L (35-105); Anion Gap 13.9 (5-19); Aspartate Amino Transferase 28 U/L (0-32); Blood Urea Nitrogen 72 mg/dL (8-23); Calcium 9.2 mg/dL (8.5-10.5); Chloride 85 mmol/L (98-107); Globulin 2.7 g/dL (1.3-4.6); Glucose 101 mg/dL (65-115); Osmolality Calculated 309 mOsm/kg (285-295); Sodium 139 mmol/L (136-145); Total Bilirubin 1.6 mg/dL (0.15-1.2); Total Protein 6.9 g/dL (6.6-8.7)
[2023-02-02 03:51] LABS: Carbon Dioxide 43 mmol/L (22-29); Potassium 2.9 mmol/L (3.5-5.1)
[2023-02-02] MEDS: potassium chloride oral liq 20 mEq/15 mL UDC 40 MEQ PO ×2 (04:47→11:29)
[2023-02-02] MEDS: bumetanide 0.25 mg/mL SDV 10 mL 2 MG IVP (05:42)
[2023-02-02] MEDS: budesonide 0.5 mg/2 mL Neb INHALATION ×2 (07:44→19:55)
[2023-02-02] MEDS: fluticasone nasal spray 16gm Btl 2 SPRAY NASAL (08:55)
[2023-02-02] MEDS: pantoprazole DR 40 mg Tablet PO (08:56)
[2023-02-02] MEDS: acetaZOLAMIDE 250 mg Tablet PO (08:57)
[2023-02-02] MEDS: amiodarone 200 mg Tablet 400 MG PO ×2 (08:57→18:02)
[2023-02-02] MEDS: aspirin 81 mg Chew Tablet PO (08:57)
[2023-02-02] MEDS: metoprolol tartrate 25 mg Tablet PO ×2 (08:57→20:19)
[2023-02-02] MEDS: magnesium lactate 84 mg Tablet 252 MG PO ×2 (11:04→18:02)
[2023-02-02 12:00] LABS: Digoxin 0.7 ng/mL (0.6-1.2)
--- NOTE | 2023-02-02 12:56 | P.PN_ITS ---
Subjective Subjective: No acute events overnight. Patient continues to feel better. Today morning seen sitting in chair. Patient had been down to 8 L of high flow nasal cannula and being turned down further. Later in the day was turned down to 4 L of nasal cannula. Patient states he is feeling better. Documented urine output in last 24 hours around 3.3 L. Patient asking for more water and relaxation of fluid r estriction. Hemodynamically better. Heart rate better controlled after IV digoxin. Blood work appreciated for stable CBC, INR back to target 2-3, BMP showing mild hypokalemia, contraction alkalosis with a stable creatinine and BUN. Medications: Reviewed: Yes Vitals/I&O/Wt Last Vital Signs Temp 98.1 F 02/02/23 12:00 Pulse 90 02/02/23 12:00 Resp 14 02/02/23 12:00 BP 103/55 02/02/23 12:00 Pulse Ox 96 02/02/23 12:00 O2 Del Method Nasal Cannula 02/02/23 12:00 O2 Flow Rate 4 02/02/23 12:00 FiO2 40 02/02/23 07:48 02/01/23 02/02/23 02/02/23 22:59 06:59 14:59 Intake Total 150 / 680 150 / 830 100 / 100 Output Total 1600 / 1600 200 / 1800 Balance -1450 / -920 -50 / -970 100 / 100 Weight last 48 hrs Weight 89.811 kg Weight 92.261 kg Physical Exam Narrative: General: AOx3, no acute distress, laying in bed, heated high flow oxygen supplementation Eyes: conjunctiva clear w/o exudate or hemorrhage. non-icteric, EOM intact, PERRLA. no signs of nystagmus Nose: nasal mucosa pink, septum midline Oropharynx: good dentition Neck: FROM, no lymphadenopathy Chest: atraumatic, symmetrical CVD: S1-S2 irregularly irregular, tachycardia, no S3, 2/6 CHAD at LSB, 2+ pulse x 4 extremities. mild JVD, no carotid bruit. JVD mildly elevated Lungs: Normal vesicular breath sounds all over lung long with conductive air sounds, fine crackles mid chest bilaterally Abdomen: mild sabi-umbilical ttp, mild distension, soft, NABS. No hepatosplenomegaly, Extremities: FROM and 5/5 strength in BUE and BLE. -bilateral legs with 2+ edema, lymphedema, weeping with clear discharge, no open wounds or areas to attain culture. ttp mid calf distally. NVI. wiggles toes Neuro: NVI. Urinary Catheter Management: Monsalve: Cath Placed During This Visit: yes Reason for Continuing Indwelling Catheter: Other Urinary Catheter Date of Insertion: 01/25/23 Urinary Catheter Time of Insertion: 15:00 Data 02/02/23 02:58 02/02/23 02:58 A&P Assessment and plan (1) Respiratory failure with hypoxia: Most likely in setting of acute exacerbation of chronic diastolic congestive heart failure in setting of atrial fibrillation with RVR along with COPD exac erbation in setting of mild pneumonia. Appreciate CT chest results. Down from heated high flow to high flow nasal cannula. Been turned down further to regular nasal cannula keeping saturation over 88% today. BiPAP nightly when sleeping. Continue Pulmicort twice daily, Xopenex and ipratropium every 6 hours. Aggressive pulmonary toilet with chest vest. Out of bed whenever possible. Patient getting euvolemic since admission. Continue with albumin for 1 more day. Switch Bumex to 1 mg IV every 12. Give 1 dose of Diamox. Patient developing contraction alkalosis. Repeat BMP in evening. Repeat potassium with 80 mg oral. Fluid restriction up to 1500 cc. Strict input output charting, daily weights. Slight concerns for aspiration pneumonia. Appreciate modified barium swallow. Diet changed accordingly. Sputum culture pending. Respiratory viral panel negative, appreciate repeat chest x-ray and urinalysis. MRSA negative. Patient has had overall 8 days of IV antibiotics. We will stop today. (2) Atrial fibrillation with RVR: Heart rate better controlled. Continue with amiodarone 400 mg twice daily. Plan for 40 mg twice daily for 7 days followed by 200 mg twice daily for 7 days and thereafter 200 mg daily. Continue with metoprolol 25 mg twice daily. Received IV digoxin 500 mcg yesterday. Heart rate better since then. Check digoxin level. Repeat digoxin accordingly. Restart Coumadin once INR in target. (3) CHF (congestive heart failure), NYHA class III: Echocardiogram shows an EF of 60% with mild MR. Treatment as above. Qualifiers: Congestive heart failure chronicity: acute on chronic Congestive heart failure type: diastolic Qualified Code(s): I50.33 - Acute on chronic diastolic (congestive) heart failure (4) Supratherapeutic INR: Resolved. Goal INR of 2-3 for A-fib. Restart Coumadin as per pharmacy directions. Pharmacy has been consulted for dosing of warfarin. (5) KATHI (acute kidney injury): Resolved. Most likely in setting of congestive heart failure. Continue to monitor renal functions daily. Medical treatment patient done for nephrotoxic drugs. Strict input and output charting. Renal nondialysis diet. (6) Hyponatremia: Acute on chronic. Most recently ranging 1 28-1 30. Resolved. Appreciate urine lites, urine creatinine. Most likely hypervolemic hyponatremia. Continue albumin 25 g 25% every 8 hourly for 1 more day. Continue to monitor daily. Hold salt tablets for now. (7) Hyperkalemia: Resolved today. Monitor daily. (8) Cellulitis: Chronic. Wound culture taken on admission shows Proteus, Moraxella, Corynebacterium. Most likely contaminant. For now continue with IV Zosynas above for overall 7-day course. Antibiotics will cover for the culture results. Wound therapy (9) Wound, open, leg: (10) PAD (peripheral artery disease): (11) Hypertension: (12) Warfarin anticoagulation: (13) Carotid disease, bilateral: (14) COPD (chronic obstructive pulmonary disease): (15) CHF exacerbation: (16) Peripheral neuropathy: Most likely in setting of PAD and chronic smoker. Start on Requip 0.5 at bedtime and gabapentin 100 mg 3 times daily. Plan Hematuria: Most likely traumatic in setting of supratherapeutic INR. Clearing up. CODE STATUS: DNR/DNI. Regular diet. Protonix for PUD prophylaxis Coumadin will suffice as DVT prophylaxis. Discharge plan: Given prolonged hospitalization and physical deconditioning patient would benefit from SNF placement. She is agreeable. Discharge to SNF once medically stable. Case management alerted. Attestations Medical Necessity Statement*: Requires further hospitalization for management of resolving respiratory failure in setting of congestive heart failure, A-fib with RVR developing contraction a lkalosis Diagnoses Respiratory failure with hypoxia J96.91 Atrial fibrillation with RVR I48.91 CHF (congestive heart failure), NYHA class III I50.33 Congestive heart failure chronicity: acute on chronic Congestive heart failure type: diastolic Supratherapeutic INR R79.1 KATHI (acute kidney injury) N17.9 Hyponatremia E87.1 Hyperkalemia E87.5 Cellulitis L03.90 Wound, open, leg S81.809A PAD (peripheral artery disease) I73.9 Hypertension I10 Warfarin anticoagulation Z79.01 Carotid disease, bilateral I77.9 COPD (chronic obstructive pulmonary disease) J44.9 CHF exacerbation I50.9 Peripheral neuropathy G62.9
[2023-02-02] MEDS: warfarin 2 mg Tablet PO (15:47)
[2023-02-02 16:06] LABS: Anion Gap 14.5 (5-19); Blood Urea Nitrogen 69 mg/dL (8-23); Calcium 9.4 mg/dL (8.5-10.5); Chloride 85 mmol/L (98-107); Glucose 102 mg/dL (65-115); Magnesium 2.8 mg/dL (1.7-2.3); Osmolality Calculated 304 mOsm/kg (285-295); Potassium 3.5 mmol/L (3.5-5.1); Sodium 137 mmol/L (136-145)
[2023-02-02 16:31] LABS: Carbon Dioxide 41 mmol/L (22-29)
--- NOTE | 2023-02-02 16:55 | PC.NURSE ---
Dr. Richardson is notified of her high CO2 level. New orders to hold her evening dose of Bumex.
[2023-02-02] MEDS: atorvastatin 40 mg Tablet 80 MG PO (18:02)
[2023-02-02] MEDS: ropinirole 0.25 mg Tablet 0.5 MG PO (20:19)
[2023-02-02] MEDS: HYDROcodone-acetaminophen 5-325 mg Tablet 1 TAB PO (21:43)
[2023-02-03] VITALS (27 sets, daily range): BP systolic 101–117; BP diastolic 42–61; PULSE 70–95; RESP 16–27; TEMP 36.3–37.1; O2SAT 85–100
[2023-02-03] MEDS: piperacillin-tazobactam 3.375 GM in sodium chloride 0.9% (plus) 50 ML IV ×2 (00:53→09:30)
[2023-02-03] MEDS: levalbuterol 0.63 mg/3 mL Neb INHALATION ×4 (02:16→20:42)
[2023-02-03] MEDS: ipratropium 0.5 mg/2.5 mL Neb INHALATION ×4 (02:16→20:42)
[2023-02-03 03:58] LABS: Basophils # 0.1 10^3/uL (0.0-0.1); Basophils % 0.4 %; Eosinophils # 0.5 10^3/uL (0.0-0.8); Eosinophils % 2.4 %; Hematocrit 27.8 % (37.0-47.0); Hemoglobin 8.4 g/dL (11.5-15.3); Lymphocytes # 0.8 10^3/uL (0.8-4.8); Lymphocytes % 4.1 %; Mean Corpuscular HGB Conc 30.2 g/dL (30.0-36.0); Mean Corpuscular Hemoglobin 27.2 pg (28.0-34.0); Mean Platelet Volume 10.5 fL (7.4-10.4); Neutrophils # 18.09 10^3/uL (1.8-7.7); Neutrophils % 87.3 %; Nucleated Red Blood Cells % 0 %; Platelet Count 276 10^3/cmm (130-400); Red Blood Count 3.09 10^6/uL (4.1-5.3); White Blood Count 20.7 10^3/uL (4.0-10.0)
[2023-02-03 04:10] LABS: INR 2.36 (0.8-1.2)
[2023-02-03 04:20] LABS: Alanine Aminotransferase 18 U/L (0-33); Albumin Level 4.1 g/dL (3.5-5.2); Alkaline Phosphatase 87 U/L (35-105); Anion Gap 12.1 (5-19); Aspartate Amino Transferase 21 U/L (0-32); Blood Urea Nitrogen 73 mg/dL (8-23); Calcium 8.6 mg/dL (8.5-10.5); Carbon Dioxide 40 mmol/L (22-29); Chloride 87 mmol/L (98-107); Globulin 2.5 g/dL (1.3-4.6); Glucose 96 mg/dL (65-115); Osmolality Calculated 303 mOsm/kg (285-295); Potassium 3.1 mmol/L (3.5-5.1); Sodium 136 mmol/L (136-145); Total Bilirubin 1.7 mg/dL (0.15-1.2); Total Protein 6.6 g/dL (6.6-8.7)
[2023-02-03] MEDS: bumetanide 0.25 mg/mL SDV 10 mL 1 MG IVP (06:23)
[2023-02-03] MEDS: budesonide 0.5 mg/2 mL Neb INHALATION ×2 (08:16→20:42)
--- NOTE | 2023-02-03 08:31 | PC.SOCIAL ---
IMM Update pg 2 of IMM updated and reviewed w/ patient. Copy provided and Copy in chart dated and initialed.
[2023-02-03] MEDS: metoprolol tartrate 25 mg Tablet PO ×2 (09:30→21:21)
[2023-02-03] MEDS: aspirin 81 mg Chew Tablet PO (09:30)
[2023-02-03] MEDS: pantoprazole DR 40 mg Tablet PO (09:30)
[2023-02-03] MEDS: magnesium lactate 84 mg Tablet 252 MG PO ×2 (09:30→18:07)
[2023-02-03] MEDS: fluticasone nasal spray 16gm Btl 2 SPRAY NASAL (09:35)
[2023-02-03] MEDS: potassium chloride ER 20 mEq Tablet 40 MEQ PO (10:06)
[2023-02-03] MEDS: acetaZOLAMIDE 250 mg Tablet 500 MG PO (10:06)
[2023-02-03] MEDS: warfarin 3 mg Tablet PO (14:34)
--- NOTE | 2023-02-03 16:10 | PM.PN ---
Subjective Subjective: No acute events overnight. Patient doing a lot better. Asking for more water. States he feels dehydrated. Down to 3 L of oxygen supplementation saturating more than 92%. Sitting up in chair. Denies any nausea, vomiting, headache. Urine output in last 24 hours of 2 L. Overall since admission patient is 2.7 L negative. Blood work appreciated for mild elevation in creatinine to 1.5, BUN to 73, potassium of 3.1, persistent leukocytosis of 20,000, hemoglobin of 8.4 Medications: Reviewed: Yes Vitals/I&O/Wt Last Vital Signs Temp 98.4 F 02/03/23 12:00 Pulse 83 02/03/23 14:17 Resp 16 02/03/23 14:13 BP 115/56 02/03/23 12:00 Pulse Ox 96 02/03/23 14:13 O2 Del Method Nasal Cannula 02/03/23 14:13 O2 Flow Rate 3 02/03/23 14:13 FiO2 40 02/03/23 02:17 02/03/23 02/03/23 02/03/23 06:59 14:59 22:59 Intake Total 50 / 250 100 / 100 Output Total 300 / 2000 600 / 600 Balance -250 / -1750 -500 / -500 Weight last 48 hrs Weight 90.174 kg Weight 89.811 kg Physical Exam Narrative: General: AOx3, no acute distress, laying in bed, heated high flow oxygen supplementation Eyes: conjunctiva clear w/o exudate or hemorrhage. non-icteric, EOM intact, PERRLA. no signs of nystagmus Nose: nasal mucosa pink, septum midline Oropharynx: good dentition Neck: FROM, no lymphadenopathy Chest: atraumatic, symmetrical CVD: S1-S2 irregularly irregular, tachycardia, no S3, 2/6 CHAD at LSB, 2+ pulse x 4 extremities. mild JVD, no carotid bruit. JVD mildly elevated Lungs: Normal vesicular breath sounds all over lung long with conductive air sounds, fine crackles mid chest bilaterally Abdomen: mild sabi-umbilical ttp, mild distension, soft, NABS. No hepatosplenomegaly, Extremities: FROM and 5/5 strength in BUE and BLE. -bilateral legs with 2+ edema, lymphedema, weeping with clear discharge, no open wounds or areas to attain culture. ttp mid calf distally. NVI. wiggles toes Neuro: NVI. Urinary Catheter Management: Monsalve: Cath Placed During This Visit: yes Reason for Continuing Indwelling Catheter: Accurate Measurement of Urinary Output in Critically Ill Patients Urinary Catheter Date of Insertion: 01/25/23 Urinary Catheter Time of Insertion: 15:00 Data 02/03/23 03:15 02/03/23 03:15 A&P Assessment and plan (1) Respiratory failure with hypoxia: Most likely in setting of acute exacerbation of chronic diastolic congestive heart failure in setting of atrial fibrillation with RVR along with COPD exacerbation in setting of mild pneumonia. Appreciate CT chest results. Resolved. Down to 3 L of minute regular nasal cannula. Maintain saturation over 88%. BiPAP nightly when sleeping. Continue Pulmicort twice daily, Xopenex and ipratropium every 6 hours. Aggressive pulmonary toilet with chest vest. Out of bed to chair Patient getting euvolemic since admission. Hold off Bumex in afternoon. Bumex 1 mg IV daily. Diamox 500 mg for 3 days. Patient is developing contraction alkalosis. Depending on volume status for the next 24 hours can give a slow IV bolus of 500 cc as well. Continue with fluid restriction up to 1500 cc. Repeat BMP in evening. Repeat potassium with 40 mg oral. Strict input output charting, daily weights. Slight concerns for aspiration pneumonia. Appreciate modified barium swallow. Diet changed accordingly. Sputum culture pending. Respiratory viral panel negative, appreciate repeat chest x-ray and urinalysis. MRSA negative. Patient has had overall 8 days of IV antibiotics. Last day of antibiotic on 02/02. Patient continues to have persistent leukocytosis. Will send for peripheral smear. (2) Atrial fibrillation with RVR: Heart rate better controlled. Continue with amiodarone 400 mg twice daily. Plan for 40 mg twice daily for 7 days followed by 200 mg twice daily for 7 days and thereafter 200 mg daily. Continue with metoprolol 25 mg twice daily. Received IV digoxin 500 mcg yesterday. Heart rate better since then. Appreciate digoxin levels. Restart Coumadin at 3 mg daily as INR therapeutic now. (3) CHF (congestive heart failure), NYHA class III: Echocardiogram shows an EF of 60% with mild MR. Treatment as above. Qualifiers: Congestive heart failure chronicity: acute on chronic Congestive heart failure type: diastolic Qualified Code(s): I50.33 - Acute on chronic diastolic (congestive) heart failure (4) Supratherapeutic INR: Resolved. Goal INR of 2-3 for A-fib. Takes 4 mg of Coumadin at home 6 out of 7 days. Restart Coumadin at 3 mg daily. Monitor INR daily. (5) KATHI (acute kidney injury): Creatinine 1.5 today. Most likely this is the dry creatinine for patient. We will continue to monitor. Repeat potassium. Repeat in evening. Medical treatment patient done for nephrotoxic drugs. Strict input and output charting. Renal nondialysis diet. (6) Hyponatremia: Acute on chronic. Most recently ranging 1 28-1 30. Resolved. Appreciate urine lites, urine creatinine. Most likely hypervolemic hyponatremia. Continue to monitor daily. Hold salt tablets for now. (7) Hyperkalemia: Resolved today. Monitor daily. (8) Cellulitis: Chronic. Wound culture taken on admission shows Proteus, Moraxella, Corynebacterium. Most likely contaminant. For now continue with IV Zosynas above for overall 7-day course. Antibiotics will cover for the culture results. Wound therapy (9) Wound, open, leg: (10) PAD (peripheral artery disease): (11) Hypertension: (12) Warfarin anticoagulation: (13) Carotid disease, bilateral: (14) COPD (chronic obstructive pulmonary disease): (15) CHF exacerbation: (16) Peripheral neuropathy: Most likely in setting of PAD and chronic smoker. Start on Requip 0.5 at bedtime and gabapentin 100 mg 3 times daily. Plan Hematuria: Most likely traumatic in setting of supratherapeutic INR. Clearing up. CODE STATUS: DNR/DNI. Regular diet. Protonix for PUD prophylaxis Coumadin will suffice as DVT prophylaxis. Discharge plan: Given prolonged hospitalization and physical deconditioning patient would benefit from SNF placement. She is agreeable. Discharge to SNF once medically stable. Case management alerted. Care discussed in detail with patient's spouse at bedside. All the questions were answered. Attestations Medical Necessity Statement*: Requires further hospitalization for management of resolving respiratory failure in setting of congestive heart failure, acute kidney injury, resolving supratherapeutic INR while safe discharge planning is sought. Diagnoses Respiratory failure with hypoxia J96.91 Atrial fibrillation with RVR I48.91 CHF (congestive heart failure), NYHA class III I50.33 Congestive heart failure chronicity: acute on chronic Congestive heart failure type: diastolic Supratherapeutic INR R79.1 KATHI (acute kidney injury) N17.9 Hyponatremia E87.1 Hyperkalemia E87.5 Cellulitis L03.90 Wound, open, leg S81.809A PAD (peripheral artery disease) I73.9 Hypertension I10 Warfarin anticoagulation Z79.01 Carotid disease, bilateral I77.9 COPD (chronic obstructive pulmonary disease) J44.9 CHF exacerbation I50.9 Peripheral neuropathy G62.9
[2023-02-03 17:16] LABS: Blood Urea Nitrogen 77 mg/dL (8-23); Calcium 9.3 mg/dL (8.5-10.5); Carbon Dioxide 38 mmol/L (22-29); Chloride 84 mmol/L (98-107); Glucose 112 mg/dL (65-115); Osmolality Calculated 304 mOsm/kg (285-295); Sodium 135 mmol/L (136-145)
[2023-02-03] MEDS: amiodarone 200 mg Tablet PO (17:16)
[2023-02-03] MEDS: atorvastatin 40 mg Tablet 80 MG PO (17:16)
[2023-02-03 17:21] LABS: Anion Gap 16.5 (5-19); Potassium 3.5 mmol/L (3.5-5.1)
[2023-02-03] MEDS: sodium chloride 0.9% 500 ML 75 ML IV (17:42)
--- NOTE | 2023-02-03 19:39 | PC.NURSE ---
Hold evening dose of Bumex per Dr. Richardson.
[2023-02-03] MEDS: ropinirole 0.25 mg Tablet 0.5 MG PO (21:22)
[2023-02-04] VITALS (17 sets, daily range): BP systolic 101–115; BP diastolic 46–61; PULSE 67–92; RESP 16–25; TEMP 36.9–37; O2SAT 88–99
[2023-02-04] MEDS: levalbuterol 0.63 mg/3 mL Neb INHALATION ×4 (02:17→19:54)
[2023-02-04] MEDS: ipratropium 0.5 mg/2.5 mL Neb INHALATION ×4 (02:17→19:54)
[2023-02-04 02:46] LABS: Basophils # 0.1 10^3/uL (0.0-0.1); Basophils % 0.5 %; Eosinophils # 0.5 10^3/uL (0.0-0.8); Hematocrit 28.1 % (37.0-47.0); Hemoglobin 8.7 g/dL (11.5-15.3); Lymphocytes # 0.8 10^3/uL (0.8-4.8); Lymphocytes % 3.6 %; Mean Corpuscular Hemoglobin 28.2 pg (28.0-34.0); Mean Corpuscular Volume 90.9 fl (81-99); Mean Platelet Volume 10.2 fL (7.4-10.4); Monocytes % 4.6 %; Neutrophils # 20.06 10^3/uL (1.8-7.7); Neutrophils % 88.4 %; Nucleated Red Blood Cells % 0 %; Platelet Count 268 10^3/cmm (130-400); Red Blood Count 3.09 10^6/uL (4.1-5.3); White Blood Count 22.7 10^3/uL (4.0-10.0)
[2023-02-04 02:52] LABS: INR 2.47 (0.8-1.2)
[2023-02-04 03:02] LABS: Alanine Aminotransferase 20 U/L (0-33); Albumin Level 3.8 g/dL (3.5-5.2); Alkaline Phosphatase 95 U/L (35-105); Anion Gap 12.9 (5-19); Aspartate Amino Transferase 20 U/L (0-32); Blood Urea Nitrogen 74 mg/dL (8-23); Calcium 8.9 mg/dL (8.5-10.5); Carbon Dioxide 37 mmol/L (22-29); Chloride 89 mmol/L (98-107); Globulin 2.6 g/dL (1.3-4.6); Glucose 92 mg/dL (65-115); Osmolality Calculated 304 mOsm/kg (285-295); Sodium 136 mmol/L (136-145); Total Bilirubin 1.4 mg/dL (0.15-1.2); Total Protein 6.4 g/dL (6.6-8.7)
[2023-02-04 03:04] LABS: Potassium 2.9 mmol/L (3.5-5.1)
[2023-02-04] MEDS: potassium chloride ER 20 mEq Tablet 40 MEQ PO ×2 (03:45→11:02)
[2023-02-04] MEDS: budesonide 0.5 mg/2 mL Neb INHALATION ×2 (07:49→19:54)
[2023-02-04] MEDS: magnesium lactate 84 mg Tablet 252 MG PO ×2 (08:28→17:50)
[2023-02-04] MEDS: pantoprazole DR 40 mg Tablet PO (08:29)
[2023-02-04] MEDS: amiodarone 200 mg Tablet PO ×2 (08:29→17:50)
[2023-02-04] MEDS: aspirin 81 mg Chew Tablet PO (08:29)
[2023-02-04] MEDS: metoprolol tartrate 25 mg Tablet PO ×2 (08:29→20:56)
[2023-02-04] MEDS: bumetanide 0.25 mg/mL SDV 10 mL 1 MG IVP (08:30)
[2023-02-04] MEDS: acetaZOLAMIDE 250 mg Tablet 500 MG PO (08:30)
--- NOTE | 2023-02-04 15:01 | PM.PN ---
Subjective Subjective: Patient seen at bedside today-she appears comfortable Currently she is saturating 92% on 2 L supplemental oxygen She is net -4 L since admission-currently on Bumex 1 Mg daily, Diamox 500 mg-improving alkalosis Heart rate is well controlled Other labs and imaging reviewed Medications: Reviewed: Yes Vitals/I&O/Wt Last Vital Signs Temp 98.7 F 02/03/23 19:47 Pulse 85 02/04/23 14:03 Resp 18 02/04/23 13:53 BP 110/53 02/04/23 11:58 Pulse Ox 92 02/04/23 13:53 O2 Del Method Nasal Cannula 02/04/23 13:53 O2 Flow Rate 2 02/04/23 13:53 FiO2 40 02/04/23 02:19 02/04/23 02/04/23 02/04/23 06:59 14:59 22:59 Intake Total 500 / 650 220 / 220 Output Total 250 / 2350 340 / 340 Balance 250 / -1700 -120 / -120 Weight last 48 hrs Weight 198 lb 11.2 oz Weight 198 lb 12.8 oz Physical Exam Narrative: General: alert, NAD HEENT: conj clear, EOMI, PERRL, dry mucous membranes Neck: supple, no meningismus Heme: no cervical LAP Respiratory: Inspection: No visible deformity of the chest wall Palpation: Trachea is mildly deviated to the right, bilateral symmetric expansion Percussion: Bilateral tympanic percussion note both anterior and posteriorly Auscultation:There are minimal Bilateral bibasilar crackles Cardiovascular: rrr, nl s1s2, no mrg Abdomen: soft, nt, nd, no r/g, bs+ Extremities: pulses +, no edema, no c/c : no CVA tenderness Skin: intact, no rash MSK: no back or neck pain Neurologic: grossly intact Urinary Catheter Management: Monsalve: Cath Placed During This Visit: yes Reason for Continuing Indwelling Catheter: Accurate Measurement of Urinary Output in Critically Ill Patients Urinary Catheter Date of Insertion: 01/25/23 Urinary Catheter Time of Insertion: 15:00 Data 02/04/23 02:31 02/04/23 02:31 Other Labs: Radiology Impressions Chest CT 01/28/23 11:24 IMPRESSION: 1. New mild pulmonary edema and possible pneumonitis. 2. Small bilateral pleural effusions, RIGHT greater than LEFT. 3. Compressive atelectasis at the lung bases. 4. Cardiomegaly. 5. Atherosclerosis thoracic and suprarenal abdominal aorta. Chest X-Ray 01/29/23 11:03 IMPRESSION: There are findings consistent with congestive heart failure with pulmonary edema especially in the lung bases with small pleural effusions. This has worsened since previous chest x-ray. Modified Barium Swallow 01/30/23 09:06 IMPRESSION: Modified barium swallow as above. Laboratory Results WBC 22.7 10^3/uL (4.0-10.0) H 02/04/23 02:31 Corrected WBC Cancelled 01/27/23 04:11 RBC 3.09 10^6/uL (4.1-5.3) L 02/04/23 02:31 Hgb 8.7 g/dL (11.5-15.3) L 02/04/23 02:31 Hct 28.1 % (37.0-47.0) L 02/04/23 02:31 MCV 90.9 fl (81-99) 02/04/23 02:31 MCH 28.2 pg (28.0-34.0) 02/04/23 02:31 MCHC 31.0 g/dL (30.0-36.0) 02/04/23 02:31 RDW 16.0 % (12.1-15.1) H 02/04/23 02:31 Plt Count 268 10^3/cmm (130-400) 02/04/23 02:31 MPV 10.2 fL (7.4-10.4) 02/04/23 02:31 Gran % Cancelled 01/27/23 04:11 Neut % (Auto) 88.4 % 02/04/23 02:31 Lymph % (Auto) 3.6 % 02/04/23 02:31 [place] % (Auto) 4.6 % 02/04/23 02:31 Eos % (Auto) 2.0 % 02/04/23 02:31 Baso % (Auto) 0.5 % 02/04/23 02:31 Neut # (Auto) 20.06 10^3/uL (1.8-7.7) H 02/04/23 02:31 Lymph # (Auto) 0.8 10^3/uL (0.8-4.8) 02/04/23 02:31 [place] # (Auto) 1.0 10^3/uL (0.2-0.9) H 02/04/23 02:31 Eos # (Auto) 0.5 10^3/uL (0.0-0.8) 02/04/23 02:31 Baso # (Auto) 0.1 10^3/uL (0.0-0.1) 02/04/23 02:31 Absolute Gran (auto) Cancelled 01/27/23 04:11 Nucleated RBC % (auto) 0 % 02/04/23 02:31 Nucleated RBCs # 0.0 /100WBC 02/04/23 02:31 PT 27.70 SECONDS (12.1-14.9) H 02/04/23 02:31 INR 2.47 (0.8-1.2) H 02/04/23 02:31 Specimen Type Arterial 02/01/23 08:02 Sample Site Radial, right 02/01/23 08:02 ABG pH 7.51 (7.35-7.45) H 02/01/23 08:02 ABG pCO2 59.2 mmHg (35-45) H 02/01/23 08:02 ABG pO2 115.0 mmHg (80.0-100.0) H 02/01/23 08:02 ABG HCO3 46.7 mmol/L (22-26) H 02/01/23 08:02 ABG O2 Saturation 99.7 02/01/23 08:02 ABG Base Excess 20.8 mmol/L (-2.0-2.0) H 02/01/23 08:02 Joe Test Pos 02/01/23 08:02 A-a O2 Gradient 44.8 mmHg (5-10) H 02/01/23 08:02 Hematocrit 31.5 % (37-47) L 02/01/23 08:02 Hgb O2 Saturation 97.7 % (95-100) 02/01/23 08:02 Carboxyhemoglobin 1.5 %THgb (0.4-20.1) 02/01/23 08:02 Methemoglobin 0.4 % (0.4-1.5) 02/01/23 08:02 Total Hemoglobin 10.3 g/dL (12-16) L 02/01/23 08:02 Sodium 136.0 mmol/L (131-143) 02/01/23 08:02 Potassium 2.8 mmol/L (3.5-5.0) L 02/01/23 08:02 Glucose 104.0 mg/dL (70-115) 02/01/23 08:02 Ionized Calcium 1.1 mmol/L (1.1-1.4) 02/01/23 08:02 O2 Delivery Device Nc 02/01/23 08:02 O2 Liters/Min 40.0 % 02/01/23 08:02 FiO2 75.0 % 02/01/23 08:02 Gas Scrubber Operator ID [place] 02/01/23 08:02 Sodium 136 mmol/L (136-145) 02/04/23 02:31 Potassium 2.9 mmol/L (3.5-5.1) L 02/04/23 02:31 Chloride 89 mmol/L (98-107) L 02/04/23 02:31 Carbon Dioxide 37 mmol/L (22-29) H 02/04/23 02:31 Anion Gap 12.9 (5-19) 02/04/23 02:31 BUN 74 mg/dL (8-23) H 02/04/23 02:31 Creatinine 1.4 mg/dL (0.5-0.9) H 02/04/23 02:31 GFR Calculation Not Reportable 02/04/23 02:31 Glucose 92 mg/dL (65-115) 02/04/23 02:31 Calculated Osmolality 304 mOsm/kg (285-295) H 02/04/23 02:31 Lactic Acid 1.5 mmol/L (0.5-2.2) 01/25/23 15:40 Calcium 8.9 mg/dL (8.5-10.5) 02/04/23 02:31 Phosphorus 5.6 mg/dL (2.5-4.5) H 01/26/23 03:10 Magnesium 2.8 mg/dL (1.7-2.3) H 02/02/23 15:23 Total Bilirubin 1.4 mg/dL (0.15-1.2) H 02/04/23 02:31 AST 20 U/L (0-32) 02/04/23 02:31 ALT 20 U/L (0-33) 02/04/23 02:31 Alkaline Phosphatase 95 U/L (35-105) 02/04/23 02:31 Troponin T Baseline 16 ng/L (0-10) H 01/25/23 10:08 Troponin T 120 Minute 14.66 ng/L (0-10) H 01/25/23 12:00 Delta Troponin T -1.34 ABS# (0-10) L 01/25/23 12:00 Troponin T Hi Sens 6Hr 13.84 ng/L (0-10) H 01/25/23 15:45 Troponin T Hi Sens 6Hr Delta -2.16 ng/L (0-12) L 01/25/23 15:45 C-Reactive Protein 324.0 mg/L (0.0-4.9) H 01/25/23 12:00 NT-Pro-B Natriuret Pep 2856 pg/mL (0-125) H 01/25/23 12:00 Total Protein 6.4 g/dL (6.6-8.7) L 02/04/23 02:31 Albumin 3.8 g/dL (3.5-5.2) 02/04/23 02:31 Globulin 2.6 g/dL (1.3-4.6) 02/04/23 02:31 Procalcitonin 0.73 ng/mL (0-0.5) H 01/25/23 12:00 Urine Color Red (Yellow) 01/29/23 11:15 Urine Appearance Cloudy (CLEAR) A 01/29/23 11:15 Urine pH 5 (5-7) 01/29/23 11:15 Ur Specific [place] 1.020 (1.005-1.030) 01/29/23 11:15 Urine Protein 2+ (Negative) H 01/29/23 11:15 Urine Glucose (UA) Norm (Normal) 01/29/23 11:15 Urine Ketones Negative (Negative) 01/29/23 11:15 Urine Blood 3+ (Negative) H 01/29/23 11:15 Urine Nitrate Negative (Negative) 01/29/23 11:15 Urine Bilirubin Neg (Negative) 01/29/23 11:15 Urine Urobilinogen Neg mg/dL (Negative) 01/29/23 11:15 Ur Leukocyte Esterase 1+ (Negative) H 01/29/23 11:15 Urine RBC >100 /hpf (0-2) H 01/29/23 11:15 Urine WBC 10-15 /hpf (0-5) H 01/29/23 11:15 Ur Eosinophil Smear 0 (0-0) 01/28/23 15:00 Ur Squamous Epith Cells 10-15 /hpf (0-5) H 01/29/23 11:15 Uric Acid Crystals 10-15 /hpf H 01/29/23 11:15 Amorphous Sediment Not Reportable 01/29/23 11:15 Urine Bacteria 1+ /hpf (NONE) H 01/29/23 11:15 Hyaline Casts 0-4 /lpf H 01/29/23 11:15 Urine Mucus 1+ /hpf 01/29/23 11:15 Urine Eosinophils No eosinophils seen 01/28/23 15:00 Ur Random Sodium 38 mmol/L 01/28/23 15:00 Ur Random Potassium 32 mmol/L 01/28/23 15:00 Ur Random Chloride 61 mmol/L 01/28/23 15:00 Urine Creatinine 40 mg/dL (28-217) 01/28/23 15:00 Nasal Influ A H1 2008 PCR Not detected (NOT DETECT) 01/29/23 11:20 Vancomycin Trough 13.7 ug/mL (10-15) 01/28/23 15:35 Digoxin 0.7 ng/mL (0.6-1.2) 02/02/23 02:58 Adenovirus (PCR) Not detected (NOT DETECT) 01/29/23 11:20 C. pneumoniae DNA (PCR) Not detected (NOT DETECT) 01/29/23 11:20 Coronavirus 229E (PCR) Not detected (NOT DETECT) 01/29/23 11:20 Human Metapneumovir PCR Not detected (NOT DETECT) 01/29/23 11:20 Influenza A (H1) PCR Not detected (NOT DETECT) 01/29/23 11:20 Influenza A (H3) PCR Not detected (NOT DETECT) 01/29/23 11:20 Influenza Type A (PCR) Not detected (NOT DETECT) 01/29/23 11:20 Influenza Type B (PCR) Not detected (NOT DETECT) 01/29/23 11:20 M. pneumoniae (PCR) Not detected (NOT DETECT) 01/29/23 11:20 Parainfluenza 1 (PCR) Not detected (NOT DETECT) 01/29/23 11:20 Parainfluenza 2 (PCR) Not detected (NOT DETECT) 01/29/23 11:20 Parainfluenza 3 (PCR) Not detected (NOT DETECT) 01/29/23 11:20 Parainfluenza 4 (PCR) Not detected (NOT DETECT) 01/29/23 11:20 RSV Type A (PCR) Not detected (NOT DETECT) 01/29/23 11:20 RSV Type B (PCR) Not detected (NOT DETECT) 01/29/23 11:20 Entero/Rhino (PCR) Not detected (NOT DETECT) 01/29/23 11:20 SARS-CoV-2 (PCR) Not detected (NOT DETECT) 01/29/23 11:20 A&P Assessment and plan (1) Respiratory failure with hypoxia: Currently requiring 2 L supplemental oxygen and maintaining saturation 93% Patient had underlying CHF and currently in exacerbation-triggered by A-fib RVR Echocardiogram 01/26/2023 showed normal LV size systolic function with EF 60%. Currently rate is controlled. Currently on amiodarone 400 Mg p.o. twice daily. Metoprolol 25 Mg p.o. twice daily -urine output -4 L net negative since admission;Currently Bumex 1 Mg daily Diamox 500 mg daily; there is evidence of mild KATHI-patient appears clinically dehydrated-I am going to give 250 cc bolus, -CMP shows metabolic alkalosis likely contraction alkalosis which is improving after starting on Diamox ; supplemented 40 mEq p.o.2 doses-we will monitor We will monitor electrolytes, input output, renal functions -Encourage patient to work with physical therapy and sit out of bed to chair (2) CHF exacerbation: (3) CHF (congestive heart failure), NYHA class III: Qualifiers: Congestive heart failure chronicity: acute on chronic Congestive heart failure type: diastolic Qualified Code(s): I50.33 - Acute on chronic diastolic (congestive) heart failure (4) Diuretic-induced hypokalemia: Potassium 2.9-supplemented with KCl 80 mEq-monitor and supplement Continue to monitor and supplement accordingly Attestations Medical Necessity Statement*: Currently awaiting placement Time Spent in Patient Care: Greater than 35 minutes (>than 50% of time spent in counselling and/or direct pt care on unit). Coding Level of Care Code 64300 Diagnoses Respiratory failure with hypoxia J96.91 CHF exacerbation I50.9 CHF (congestive heart failure), NYHA class III I50.33 Congestive heart failure chronicity: acute on chronic Congestive heart failure type: diastolic Diuretic-induced hypokalemia E87.6; T50.2X5A Time Spent (min) 46
[2023-02-04] MEDS: warfarin 3 mg Tablet PO (15:14)
[2023-02-04 15:59] LABS: Anion Gap 17.6 (5-19); Blood Urea Nitrogen 73 mg/dL (8-23); Calcium 9.1 mg/dL (8.5-10.5); Carbon Dioxide 33 mmol/L (22-29); Chloride 91 mmol/L (98-107); Glucose 110 mg/dL (65-115); Magnesium 3.1 mg/dL (1.7-2.3); Osmolality Calculated 308 mOsm/kg (285-295); Potassium 3.6 mmol/L (3.5-5.1); Sodium 138 mmol/L (136-145)
[2023-02-04] MEDS: sodium chloride 0.9% 250 ML IV (16:22)
[2023-02-04] MEDS: atorvastatin 40 mg Tablet 80 MG PO (17:50)
[2023-02-04] MEDS: ropinirole 0.25 mg Tablet 0.5 MG PO (20:56)
--- NOTE | 2023-02-04 21:01 | P.PN_ITS ---
Subjective Subjective: States breathing is improving. She is having some loose stools/diarrhea. Vitals/I&O/Wt Last Vital Signs Temp 98.5 F 02/04/23 19:40 Pulse 78 02/04/23 19:59 Resp 21 H 02/04/23 19:59 BP 108/51 02/04/23 19:40 Pulse Ox 99 02/04/23 19:59 O2 Del Method BiPAP 02/04/23 19:59 O2 Flow Rate 2 02/04/23 19:40 FiO2 40 02/04/23 19:59 02/04/23 02/04/23 02/04/23 06:59 14:59 22:59 Intake Total 500 / 650 220 / 220 250 / 470 Output Total 250 / 2350 340 / 340 785 / 1125 Balance 250 / -1700 -120 / -120 -535 / -655 Weight last 48 hrs Weight 90.129 kg Weight 90.174 kg Physical Exam Narrative: Sitting up in bed. Const: COMMON NORMALS: patient oriented x3 and alert GENERAL APPEARANCE: cooperative ORIENTATION/CONSCIOUSNESS: Yes awake HENMT: COMMON NORMALS: oropharynx normal Neck/C-Spine: COMMON NORMALS: no JVD Resp: COMMON NORMALS: normal respiratory effort and clear to auscultation bilaterally AUSCULTATION: clear to auscultation bilaterally Cardio: COMMON NORMALS: no JVD, regular rhythm, S1 normal heart sound present, S2 normal heart sound present and No murmurs present (Cardio) RHYTHM: regular rhythm HEART SOUNDS: S1 normal heart sound present and S2 normal heart sound present GI: COMMON NORMALS: Normal to inspection, nondistended, normoactive bowel sounds present, Soft to palpation and non-tender PALPATION: Yes Soft to palpation Extremity: COMMON NORMALS: no joint enlargement and no pedal edema NARRATIVE EXTREMITY EXAM: LLE compression wraps. RLE gauze dressing, large flakes of dry skin, minimal erythema, no drainage. Neuro: COMMON NORMALS: patient oriented x3 and moves all extremities SENSORIUM/ORIENTATION: Yes alert Skin: COMMON NORMALS: no rashes or lesions noted GENERAL SKIN EXAM: no rashes or lesions noted Urinary Catheter Management: Monsalve: Cath Placed During This Visit: yes Reason for Continuing Indwelling Catheter: Accurate Measurement of Urinary Output in Critically Ill Patients Urinary Catheter Date of Insertion: 01/25/23 Urinary Catheter Time of Insertion: 15:00 Data 02/04/23 02:31 02/04/23 15:32 A&P Assessment and plan (1) Respiratory failure with hypoxia: Still requiring 2 L nasal cannula oxygen. Noted in negative balance. Continues diuresis with Bumex, acetazolamide. Antibiotics have been discontinued. Noted persistence of leukocytosis 22.7. Predominantly neutrophilic. COPD exacerbation, pneumonia. We will request repeat chest x-ray as she otherw ise appears to be nearing euvolemia. Appreciate pulmonology assessment and recommendations. Continue BiPAP nightly with sleep. (2) Atrial fibrillation with RVR: Heart rate now remains controlled, continue amiodarone, metoprolol. (3) CHF (congestive heart failure), NYHA class III: Appears may be reaching euvolemia. Reassess volume status, renal function in the morning. Qualifiers: Congestive heart failure chronicity: acute on chronic Congestive heart failure type: diastolic Qualified Code(s): I50.33 - Acute on chronic diastolic (congestive) heart failure (4) Supratherapeutic INR: INR noted in therapeutic range. Continue warfarin 3 mg. Follow-up INR. (5) KATHI (acute kidney injury): Creatinine noted with improvement down to 1.4, 1.3 in the afternoon. Continues with Bumex, Diamox. Received a small bolus by pulmonology. Reassess renal function, at risk of renal toxicity, failure. (6) Hyponatremia: Resolved (7) Hyperkalemia: Resolved (8) Cellulitis: Completed antibiotic course. Noted persistent leukocytosis. With diarrhea, check C. difficile. LLE wrapped in compression wraps, will see tomorrow if PT able to change. Follow-up procalcitonin. (9) Wound, open, leg: (10) PAD (peripheral artery disease): (11) Hypertension: (12) Warfarin anticoagulation: (13) Carotid disease, bilateral: (14) COPD (chronic obstructive pulmonary disease): (15) CHF exacerbation: (16) Peripheral neuropathy: Plan Diarrhea: Check C. difficile. Hematuria: Most likely traumatic in setting of supratherapeutic INR. Attestations Medical Necessity Statement*: Continue admission for assessment management of improving respiratory failure, CHF with KATHI, COPD exacerbation, pneumonia, reassessment after treatment of cellulitis, with persistent leukocytosis. Diagnoses Respiratory failure with hypoxia J96.91 Atrial fibrillation with RVR I48.91 CHF (congestive heart failure), NYHA class III I50.33 Congestive heart failure chronicity: acute on chronic Congestive heart failure type: diastolic Supratherapeutic INR R79.1 KATHI (acute kidney injury) N17.9 Hyponatremia E87.1 Hyperkalemia E87.5 Cellulitis L03.90 Wound, open, leg S81.809A PAD (peripheral artery disease) I73.9 Hypertension I10 Warfarin anticoagulation Z79.01 Carotid disease, bilateral I77.9 COPD (chronic obstructive pulmonary disease) J44.9 CHF exacerbation I50.9 Peripheral neuropathy G62.9
[2023-02-05] VITALS (17 sets, daily range): BP systolic 98–120; BP diastolic 50–62; PULSE 70–98; RESP 16–33; TEMP 36.3–37; O2SAT 89–98
[2023-02-05] MEDS: ipratropium 0.5 mg/2.5 mL Neb INHALATION ×4 (03:05→21:27)
[2023-02-05] MEDS: levalbuterol 0.63 mg/3 mL Neb INHALATION ×4 (03:05→21:27)
[2023-02-05 04:02] LABS: Basophils # 0.1 10^3/uL (0.0-0.1); Basophils % 0.4 %; Eosinophils # 0.4 10^3/uL (0.0-0.8); Eosinophils % 1.9 %; Hematocrit 27.7 % (37.0-47.0); Hemoglobin 8.6 g/dL (11.5-15.3); Lymphocytes # 0.9 10^3/uL (0.8-4.8); Lymphocytes % 4.1 %; Mean Corpuscular Hemoglobin 27.8 pg (28.0-34.0); Mean Corpuscular Volume 89.6 fl (81-99); Mean Platelet Volume 10.5 fL (7.4-10.4); Monocytes # 1.2 10^3/uL (0.2-0.9); Monocytes % 5.5 %; Neutrophils # 18.75 10^3/uL (1.8-7.7); Neutrophils % 87.4 %; Nucleated Red Blood Cells % 0 %; Platelet Count 265 10^3/cmm (130-400); Red Blood Count 3.09 10^6/uL (4.1-5.3); White Blood Count 21.5 10^3/uL (4.0-10.0)
[2023-02-05 04:12] LABS: INR 2.34 (0.8-1.2)
[2023-02-05 04:29] LABS: Procalcitonin 0.15 ng/mL (0-0.5)
[2023-02-05 04:41] LABS: Alanine Aminotransferase 18 U/L (0-33); Albumin Level 3.7 g/dL (3.5-5.2); Alkaline Phosphatase 93 U/L (35-105); Anion Gap 16.3 (5-19); Aspartate Amino Transferase 18 U/L (0-32); Blood Urea Nitrogen 70 mg/dL (8-23); Calcium 9.1 mg/dL (8.5-10.5); Carbon Dioxide 33 mmol/L (22-29); Chloride 92 mmol/L (98-107); Globulin 2.8 g/dL (1.3-4.6); Glucose 87 mg/dL (65-115); Osmolality Calculated 306 mOsm/kg (285-295); Potassium 3.3 mmol/L (3.5-5.1); Sodium 138 mmol/L (136-145); Total Bilirubin 1.3 mg/dL (0.15-1.2); Total Protein 6.5 g/dL (6.6-8.7)
[2023-02-05] MEDS: potassium chloride ER 20 mEq Tablet 40 MEQ PO (05:01)
--- NOTE | 2023-02-05 06:00 | XR_ITS ---
WS: [id number] PORTABLE CHEST HISTORY: Hypoxia COMPARISON: 01/29/2023 Hazy attenuation and interstitial thickening throughout both lungs. Small but increasing RIGHT pleura l effusion. Small LEFT pleural effusion has slightly improved. No pneumothorax. Cardiac size: Mildly enlarged cardiac silhouette. Mediastinum/Aorta: Mild atherosclerosis aorta. Osteopenia. Prior vertebroplasty in the lower thoracic spine. XR/XR chest 1V portable [id number] IMPRESSION: 1. Continued mild pulmonary edema. 2. Small but increasing RIGHT pleural effusion. Small but improving LEFT pleur al effusion.
--- NOTE | 2023-02-05 08:28 | CT_ITS ---
WS: [id number] CT ABDOMEN PELVIS TECHNIQUE: Noncontrast CT of the abdomen and pelvis with coronal and sagittal reformatted images. CLINICAL INFORMATION: persistent leukocytosis, micro hematuria COMPARISON: None. DLP: 830.[address] scans at [facility] use at least one of these dose optimization techniques: automated e xposure control; mA and/or kV adjustment per patient size (includes targeted exams where dose is matc hed to clinical indication); or iterative reconstruction. FINDINGS:Bilateral renal cysts with cortical scarring both kidneys. No obstructing renal or ureteral calculi. Incidental fat-containing umbilical hernia. Monsalve catheter. Small RIGHT greater than LEFT pleural effusions. Compressive atelectasis in the lung bases. Cardiomeg lizette. Bibasilar atelectasis. Lumbar kyphosis. Chronic vertebroplasty/kyphoplasty changes at T10 T11 L4 and L5. Mild hepatomegaly. Small esophageal hiatal hernia. Normal spleen. Fatty atrophy of the pancr eas. Gallbladder is contracted. Adrenal glands are normal. Dense vascular calcification. Air-fluid levels in the transverse colon. Mild diffuse body wall anasarca. CT/CT kidney stone [id number] IMPRESSION: 1. No obstructing renal or ureteral calculi. No hydronephrosis in either kidne y. 2. Bilateral renal cortical scarring with renal cysts. 3. Small RIGHT greater than LEFT pleural effusions. 4. Mild hepatomegaly. 5. Small esophageal hiatal hernia. 6. Chronic compression fractures with kyphoplasty/vertebroplasty changes descr ibed above. 7. Monsalve catheter
[2023-02-05] MEDS: budesonide 0.5 mg/2 mL Neb INHALATION ×2 (08:30→21:27)
[2023-02-05] MEDS: acetaZOLAMIDE 250 mg Tablet PO (08:56)
[2023-02-05] MEDS: amiodarone 200 mg Tablet PO ×2 (08:56→17:20)
[2023-02-05] MEDS: aspirin 81 mg Chew Tablet PO (08:57)
[2023-02-05] MEDS: magnesium lactate 84 mg Tablet 252 MG PO (08:58)
[2023-02-05] MEDS: pantoprazole DR 40 mg Tablet PO (09:00)
--- NOTE | 2023-02-05 09:00 | PC.SOCIAL ---
IMM update IMM updated with patient. Copy of page 2 provided. Verbalized understanding. Initialed/dated/timed copy in pt chart.
[2023-02-05] MEDS: bumetanide 0.25 mg/mL SDV 10 mL 1 MG IVP (09:03)
[2023-02-05] MEDS: metoprolol tartrate 25 mg Tablet PO ×2 (09:06→19:17)
[2023-02-05] MEDS: fluticasone nasal spray 16gm Btl 2 SPRAY NASAL (09:08)
--- NOTE | 2023-02-05 10:23 | P.PN_ITS ---
Subjective Subjective: Seen patient at today bedside She just came back from CT abdomen pelvis to rule out kidney stone in view of hematuria and leukocytosis Her input output charting showed she is net -1.3 L over last 24 hours-however charting of her oral intake is questionable Today she received Bumex 1 Mg and acetazolamide 250 Mg-her CMP showed bicarb 33, K3.3 supplemented, slight improvement in her BUN/creatinine She has diffuse blanching rash on back of her thighs as well as perineal area Currently requiring 2 to 3 L supplemental oxygen Medications: Reviewed: Yes Vitals/I&O/Wt Last Vital Signs Temp 97.9 F 02/05/23 07:34 Pulse 87 02/05/23 08:42 Resp 28 H 02/05/23 08:31 BP 112/53 02/05/23 07:34 Pulse Ox 92 02/05/23 08:31 O2 Del Method Nasal Cannula 02/05/23 08:31 O2 Flow Rate 2 02/05/23 08:31 FiO2 40 02/05/23 03:06 02/04/23 02/05/23 02/05/23 22:59 06:59 14:59 Intake Total 250 / 470 Output Total 985 / 1325 500 / 1825 Balance -735 / -855 -500 / -1355 Weight last 48 hrs Weight 199 lb 11.2 oz Weight 198 lb 11.2 oz Physical Exam Narrative: General: alert, NAD HEENT: conj clear, EOMI, PERRL, dry mucous membranes Neck: supple, no meningismus Heme: no cervical LAP Respiratory: Inspection: No visible deformity of the chest wall Palpation: Trachea is mildly deviated to the right, bilateral symmetric expansion Percussion: Bilateral tympanic percussion note both anterior and posteriorly Auscultation:There are minimal Bilateral bibasilar crackles Cardiovascular: rrr, nl s1s2, no mrg Abdomen: soft, nt, nd, no r/g, bs+ Extremities: pulses +, no edema, no c/c : no CVA tenderness Skin: Diffuse blanching rash on posterior thighs as well as perineum MSK: no back or neck pain Neurologic: grossly intact Urinary Catheter Management: Monsalve: Cath Placed During This Visit: yes Reason for Continuing Indwelling Catheter: Accurate Measurement of Urinary Output in Critically Ill Patients Urinary Catheter Date of Insertion: 01/25/23 Urinary Catheter Time of Insertion: 15:00 Data 02/05/23 03:44 02/05/23 03:44 Other Labs: Radiology Impressions Chest CT 01/28/23 11:24 IMPRESSION: 1. New mild pulmonary edema and possible pneumonitis. 2. Small bilateral pleural effusions, RIGHT greater than LEFT. 3. Compressive atelectasis at the lung bases. 4. Cardiomegaly. 5. Atherosclerosis thoracic and suprarenal abdominal aorta. Modified Barium Swallow 01/30/23 09:06 IMPRESSION: Modified barium swallow as above. Chest X-Ray 02/05/23 06:00 IMPRESSION: 1. Continued mild pulmonary edema. 2. Small but increasing RIGHT pleural effusion. Small but improving LEFT pleural effusion. Abdomen/Pelvis CT 02/05/23 08:28 IMPRESSION: 1. No obstructing renal or ureteral calculi. No hydronephrosis in either kidney. 2. Bilateral renal cortical scarring with renal cysts. 3. Small RIGHT greater than LEFT pleural effusions. 4. Mild hepatomegaly. 5. Small esophageal hiatal hernia. 6. Chronic compression fractures with kyphoplasty/vertebroplasty changes described above. 7. Monsalve catheter Laboratory Results WBC 21.5 10^3/uL (4.0-10.0) H 02/05/23 03:44 Corrected WBC Cancelled 01/27/23 04:11 RBC 3.09 10^6/uL (4.1-5.3) L 02/05/23 03:44 Hgb 8.6 g/dL (11.5-15.3) L 02/05/23 03:44 Hct 27.7 % (37.0-47.0) L 02/05/23 03:44 MCV 89.6 fl (81-99) 02/05/23 03:44 MCH 27.8 pg (28.0-34.0) L 02/05/23 03:44 MCHC 31.0 g/dL (30.0-36.0) 02/05/23 03:44 RDW 16.0 % (12.1-15.1) H 02/05/23 03:44 Plt Count 265 10^3/cmm (130-400) 02/05/23 03:44 MPV 10.5 fL (7.4-10.4) H 02/05/23 03:44 Gran % Cancelled 01/27/23 04:11 Neut % (Auto) 87.4 % 02/05/23 03:44 Lymph % (Auto) 4.1 % 02/05/23 03:44 [place] % (Auto) 5.5 % 02/05/23 03:44 Eos % (Auto) 1.9 % 02/05/23 03:44 Baso % (Auto) 0.4 % 02/05/23 03:44 Neut # (Auto) 18.75 10^3/uL (1.8-7.7) H 02/05/23 03:44 Lymph # (Auto) 0.9 10^3/uL (0.8-4.8) 02/05/23 03:44 [place] # (Auto) 1.2 10^3/uL (0.2-0.9) H 02/05/23 03:44 Eos # (Auto) 0.4 10^3/uL (0.0-0.8) 02/05/23 03:44 Baso # (Auto) 0.1 10^3/uL (0.0-0.1) 02/05/23 03:44 Absolute Gran (auto) Cancelled 01/27/23 04:11 Nucleated RBC % (auto) 0 % 02/05/23 03:44 Nucleated RBCs # 0.0 /100WBC 02/05/23 03:44 PT 26.50 SECONDS (12.1-14.9) H 02/05/23 03:44 INR 2.34 (0.8-1.2) H 02/05/23 03:44 Specimen Type Arterial 02/01/23 08:02 Sample Site Radial, right 02/01/23 08:02 ABG pH 7.51 (7.35-7.45) H 02/01/23 08:02 ABG pCO2 59.2 mmHg (35-45) H 02/01/23 08:02 ABG pO2 115.0 mmHg (80.0-100.0) H 02/01/23 08:02 ABG HCO3 46.7 mmol/L (22-26) H 02/01/23 08:02 ABG O2 Saturation 99.7 02/01/23 08:02 ABG Base Excess 20.8 mmol/L (-2.0-2.0) H 02/01/23 08:02 Joe Test Pos 02/01/23 08:02 A-a O2 Gradient 44.8 mmHg (5-10) H 02/01/23 08:02 Hematocrit 31.5 % (37-47) L 02/01/23 08:02 Hgb O2 Saturation 97.7 % (95-100) 02/01/23 08:02 Carboxyhemoglobin 1.5 %THgb (0.4-20.1) 02/01/23 08:02 Methemoglobin 0.4 % (0.4-1.5) 02/01/23 08:02 Total Hemoglobin 10.3 g/dL (12-16) L 02/01/23 08:02 Sodium 136.0 mmol/L (131-143) 02/01/23 08:02 Potassium 2.8 mmol/L (3.5-5.0) L 02/01/23 08:02 Glucose 104.0 mg/dL (70-115) 02/01/23 08:02 Ionized Calcium 1.1 mmol/L (1.1-1.4) 02/01/23 08:02 O2 Delivery Device Nc 02/01/23 08:02 O2 Liters/Min 40.0 % 02/01/23 08:02 FiO2 75.0 % 02/01/23 08:02 [employer] ID [place] 02/01/23 08:02 Sodium 138 mmol/L (136-145) 02/05/23 03:44 Potassium 3.3 mmol/L (3.5-5.1) L 02/05/23 03:44 Chloride 92 mmol/L (98-107) L 02/05/23 03:44 Carbon Dioxide 33 mmol/L (22-29) H 02/05/23 03:44 Anion Gap 16.3 (5-19) 02/05/23 03:44 BUN 70 mg/dL (8-23) H 02/05/23 03:44 Creatinine 1.3 mg/dL (0.5-0.9) H 02/05/23 03:44 GFR Calculation Not Reportable 02/05/23 03:44 Glucose 87 mg/dL (65-115) 02/05/23 03:44 Calculated Osmolality 306 mOsm/kg (285-295) H 02/05/23 03:44 Lactic Acid 1.5 mmol/L (0.5-2.2) 01/25/23 15:40 Calcium 9.1 mg/dL (8.5-10.5) 02/05/23 03:44 Phosphorus 5.6 mg/dL (2.5-4.5) H 01/26/23 03:10 Magnesium 3.1 mg/dL (1.7-2.3) H 02/04/23 15:32 Total Bilirubin 1.3 mg/dL (0.15-1.2) H 02/05/23 03:44 AST 18 U/L (0-32) 02/05/23 03:44 ALT 18 U/L (0-33) 02/05/23 03:44 Alkaline Phosphatase 93 U/L (35-105) 02/05/23 03:44 Troponin T Baseline 16 ng/L (0-10) H 01/25/23 10:08 Troponin T 120 Minute 14.66 ng/L (0-10) H 01/25/23 12:00 Delta Troponin T -1.34 ABS# (0-10) L 01/25/23 12:00 Troponin T Hi Sens 6Hr 13.84 ng/L (0-10) H 01/25/23 15:45 Troponin T Hi Sens 6Hr Delta -2.16 ng/L (0-12) L 01/25/23 15:45 C-Reactive Protein 324.0 mg/L (0.0-4.9) H 01/25/23 12:00 NT-Pro-B Natriuret Pep 2856 pg/mL (0-125) H 01/25/23 12:00 Total Protein 6.5 g/dL (6.6-8.7) L 02/05/23 03:44 Albumin 3.7 g/dL (3.5-5.2) 02/05/23 03:44 Globulin 2.8 g/dL (1.3-4.6) 02/05/23 03:44 Procalcitonin 0.15 ng/mL (0-0.5) 02/05/23 03:44 Urine Color Red (Yellow) 01/29/23 11:15 Urine Appearance Cloudy (CLEAR) A 01/29/23 11:15 Urine pH 5 (5-7) 01/29/23 11:15 Ur Specific [place] 1.020 (1.005-1.030) 01/29/23 11:15 Urine Protein 2+ (Negative) H 01/29/23 11:15 Urine Glucose (UA) Norm (Normal) 01/29/23 11:15 Urine Ketones Negative (Negative) 01/29/23 11:15 Urine Blood 3+ (Negative) H 01/29/23 11:15 Urine Nitrate Negative (Negative) 01/29/23 11:15 Urine Bilirubin Neg (Negative) 01/29/23 11:15 Urine Urobilinogen Neg mg/dL (Negative) 01/29/23 11:15 Ur Leukocyte Esterase 1+ (Negative) H 01/29/23 11:15 Urine RBC >100 /hpf (0-2) H 01/29/23 11:15 Urine WBC 10-15 /hpf (0-5) H 01/29/23 11:15 Ur Eosinophil Smear 0 (0-0) 01/28/23 15:00 Ur Squamous Epith Cells 10-15 /hpf (0-5) H 01/29/23 11:15 Uric Acid Crystals 10-15 /hpf H 01/29/23 11:15 Amorphous Sediment Not Reportable 01/29/23 11:15 Urine Bacteria 1+ /hpf (NONE) H 01/29/23 11:15 Hyaline Casts 0-4 /lpf H 01/29/23 11:15 Urine Mucus 1+ /hpf 01/29/23 11:15 Urine Eosinophils No eosinophils seen 01/28/23 15:00 Ur Random Sodium 38 mmol/L 01/28/23 15:00 Ur Random Potassium 32 mmol/L 01/28/23 15:00 Ur Random Chloride 61 mmol/L 01/28/23 15:00 Urine Creatinine 40 mg/dL (28-217) 01/28/23 15:00 Nasal Influ A H1 2008 PCR Not detected (NOT DETECT) 01/29/23 11:20 Vancomycin Trough 13.7 ug/mL (10-15) 01/28/23 15:35 Digoxin 0.7 ng/mL (0.6-1.2) 02/02/23 02:58 Adenovirus (PCR) Not detected (NOT DETECT) 01/29/23 11:20 C. pneumoniae DNA (PCR) Not detected (NOT DETECT) 01/29/23 11:20 Coronavirus 229E (PCR) Not detected (NOT DETECT) 01/29/23 11:20 Human Metapneumovir PCR Not detected (NOT DETECT) 01/29/23 11:20 Influenza A (H1) PCR Not detected (NOT DETECT) 01/29/23 11:20 Influenza A (H3) PCR Not detected (NOT DETECT) 01/29/23 11:20 Influenza Type A (PCR) Not detected (NOT DETECT) 01/29/23 11:20 Influenza Type B (PCR) Not detected (NOT DETECT) 01/29/23 11:20 M. pneumoniae (PCR) Not detected (NOT DETECT) 01/29/23 11:20 Parainfluenza 1 (PCR) Not detected (NOT DETECT) 01/29/23 11:20 Parainfluenza 2 (PCR) Not detected (NOT DETECT) 01/29/23 11:20 Parainfluenza 3 (PCR) Not detected (NOT DETECT) 01/29/23 11:20 Parainfluenza 4 (PCR) Not detected (NOT DETECT) 01/29/23 11:20 RSV Type A (PCR) Not detected (NOT DETECT) 01/29/23 11:20 RSV Type B (PCR) Not detected (NOT DETECT) 01/29/23 11:20 Entero/Rhino (PCR) Not detected (NOT DETECT) 01/29/23 11:20 SARS-CoV-2 (PCR) Not detected (NOT DETECT) 01/29/23 11:20 A&P Assessment and plan (1) Respiratory failure with hypoxia: Currently requiring 2-3 L supplemental oxygen and maintaining saturation > 88% Patient had underlying CHF and currently in exacerbation-triggered by A-fib RVR Echocardiogram 01/26/2023 showed normal LV size systolic function with EF 60%. Currently rate is controlled. Currently on amiodarone 400 Mg p.o. twice daily. Metoprolol 25 Mg p.o. twice daily Her input output charting showed she is net -1.3 L over last 24 hours-however charting of her oral intake is questionable; overall net negative -5 L Today she received Bumex 1 Mg and acetazolamide 250 Mg-her CMP showed bicarb 33, K3.3 supplemented, slight improvement in her BUN/creatinine; She appears clinically somewhat dehydrated with dry skin-hold off diuretics for today; I am going to do 250 cc bolus We will monitor electrolytes, input output, renal functions -Encourage patient to work with physical therapy and sit out of bed to chair (2) CHF exacerbation: (3) CHF (congestive heart failure), NYHA class III: Qualifiers: Congestive heart failure chronicity: acute on chronic Congestive heart failure type: diastolic Qualified Code(s): I50.33 - Acute on chronic diastolic (congestive) heart failure (4) Diuretic-induced hypokalemia: Potassium 2.9-supplemented with KCl 80 mEq-monitor and supplement Continue to monitor and supplement accordingly (5) Leukocytosis: Persistent leukocytosis-no fevers-could be a component of dehydration as well However there is significant rash in perineal area and back of thighs -there is some skin excoriation We will start topical antifungal and IV antibiotics to cover staph (6) Candidiasis: there is significant rash in perineal area and back of thighs -there is some skin excoriation We will start topical antifungal and IV antibiotics Attestations Medical Necessity Statement*: Currently being worked up for leukocytosis while waiting for placement Coding Level of Care Code 53236 Diagnoses Respiratory failure with hypoxia J96.91 CHF exacerbation I50.9 CHF (congestive heart failure), NYHA class III I50.33 Congestive heart failure chronicity: acute on chronic Congestive heart failure type: diastolic Diuretic-induced hypokalemia E87.6; T50.2X5A Leukocytosis D72.829 Candidiasis B37.9 Time Spent (min) 43
--- NOTE | 2023-02-05 11:00 | PC.NURSE ---
Noted redness and yeasty/small pustule areas on pt's left inner thighs, and sacral areas,buttocks, red spots stage2 noted on right buttock. dr nunez and datar at bedside and noticed the skin breakdowns. discussion to start pt on nystatin cream.
[2023-02-05 12:10] LABS: Add Urine Microscopic? YES; Bilirubin Urine Neg (Negative); Blood Urine 3+ (Negative); Glucose Urine UA Norm (Normal); Ketones Urine Negative (Negative); Leukocyte Esterase Urine Negative (Negative); Nitrate Urine Negative (Negative); Protein Urine Neg (Negative); Specific Gravity, Urine 1.015 (1.005-1.030); Sulfosalicylic Acid Urine Negative (Negative); Urine Appearance Hazy (CLEAR); Urine Color Straw (Yellow); Urobilinogen Urine Norm (Negative); pH Urine 8 (5-7)
[2023-02-05 12:11] LABS: RBC Urine 40-50 /hpf (0-2); Squamous Epithelial Cell Urine RARE /hpf (0-5); WBC Urine 0-4 /hpf (0-5)
[2023-02-05 12:12] LABS: Add Urine Culture? Yes; Bacteria Urine TRACE /hpf; Mucus Urine TRACE /hpf
[2023-02-05] MEDS: nystatin cream 30 gm 1 APPLIC TOPICAL ×2 (13:06→19:18)
[2023-02-05] MEDS: sodium chloride 0.9% 250 ML IV (13:07)
--- NOTE | 2023-02-05 15:27 | PC.NURSE ---
pt noted to have more bleeding on her buttocks due to redness and pustules. notified dr nunez in regards to bleeding and pt is on coumadin 3 mg. received telephone order to give 2 mg dose today.
[2023-02-05] MEDS: warfarin 2 mg Tablet PO (15:39)
--- NOTE | 2023-02-05 16:43 | PC.PHAR ---
Patient: Floor: Age: 72 yo Serum creatinine: 1.3 mg/dL Height: 63.8 Inches Weight (kg): 90.5 IBW (kg): 54.24 Dosing wt(kg): 90.5 Estimated Creatinine clearance (ml/min): 33.0 CRCL method: Cockcroft and Gault using ibw(default). Drug selected: Vancomycin Loading dose (mg): Vd (liters): 63.3 (factor used: 0.7 L/kg) Carlos (hr-1): 0.032 Half life (hrs): 21.66 CLvanco=?? 2.026 L/hr Recommended dose: 1000 mg Interval: 24 hrs Infusion time (hrs): 1 Predicted peak (mcg/mL): 29.0 Predicted trough (mcg/mL): 13.89 Total body weight is being used for vancomycin dosing. Recommendations: Give Vancomycin 1000 mg q 24 hrs with an expected Cpeak of 29.0 mcg/ml and an expected Ctrough of 13.89 mcg/ml AUC 0-24 /CARTER Data: CARTER 0.5 mcg/mL:?? AUC/CARTER:? 987.2 CARTER 1.0 mcg/mL:?? AUC/CARTER:? 493.6 --------- CARTER 1.5 mcg/mL:?? AUC/CARTER:? 329.1 CARTER 2.0 mcg/mL:?? AUC/CARTER:? 246.8 Renal dosing of other antibiotics (review renal dosing of other medications and list guidelines here): Thank you for the consult, will continue to follow. Signature: Lynn MontielD
[2023-02-05 17:03] LABS: Anion Gap 14.6 (5-19); Blood Urea Nitrogen 67 mg/dL (8-23); Carbon Dioxide 32 mmol/L (22-29); Chloride 93 mmol/L (98-107); Glucose 114 mg/dL (65-115); Osmolality Calculated 302 mOsm/kg (285-295); Potassium 3.6 mmol/L (3.5-5.1); Sodium 136 mmol/L (136-145)
[2023-02-05] MEDS: ALPRAZolam 0.5 mg Tablet 0.25 MG PO (17:18)
[2023-02-05] MEDS: atorvastatin 40 mg Tablet 80 MG PO (17:20)
[2023-02-05] MEDS: cefepime 2,000 MG in sodium chloride 0.9% (plus) 50 ML 100 MG IV (17:21)
[2023-02-05] MEDS: fluconazole 100 mg Tablet 150 MG PO (17:54)
[2023-02-05] MEDS: vancomycin 1,000 MG in sodium chloride 0.9% 250 ML 250 MG IV (18:51)
[2023-02-05] MEDS: ropinirole 0.25 mg Tablet 0.5 MG PO (19:17)
[2023-02-05] MEDS: HYDROcodone-acetaminophen 5-325 mg Tablet 1 TAB PO (19:17)
--- NOTE | 2023-02-05 21:52 | P.PN_ITS ---
Subjective Subjective: States she is doing okay. Denies chest pain or pressure. With noted erythema, maceration of posterior buttocks, groin, with concern for superimposed cellulitis wants to restart antibiotics. Vitals/I&O/Wt Last Vital Signs Temp 97.4 F L 02/05/23 20:10 Pulse 82 02/05/23 21:27 Resp 21 H 02/05/23 21:27 BP 100/50 02/05/23 20:10 Pulse Ox 95 02/05/23 21:27 O2 Del Method BiPAP 02/05/23 21:27 O2 Flow Rate 3 02/05/23 13:56 FiO2 40 02/05/23 21:27 02/05/23 02/05/23 02/05/23 06:59 14:59 22:59 Intake Total 750 / 750 800 / 1550 Output Total 500 / 1825 425 / 425 450 / 875 Balance -500 / -1355 325 / 325 350 / 675 Weight last 48 hrs Weight 90.582 kg Weight 90.129 kg Physical Exam 2 Narrative: Sitting up in bed. Const: COMMON NORMALS: patient oriented x3 and alert GENERAL APPEARANCE: cooperative ORIENTATION/CONSCIOUSNESS: Yes awake HENMT: COMMON NORMALS: oropharynx normal Neck/C-Spine: COMMON NORMALS: no JVD Resp: COMMON NORMALS: normal respiratory effort and clear to auscultation bilaterally AUSCULTATION: clear to auscultation bilaterally Cardio: COMMON NORMALS: no JVD, regular rhythm, S1 normal heart sound present, S2 normal heart sound present and No murmurs present (Cardio) RHYTHM: regular rhythm HEART SOUNDS: S1 normal heart sound present and S2 normal heart sound present GI: COMMON NORMALS: Normal to inspection, nondistended, normoactive bowel sounds present, Soft to palpation and non-tender PALPATION: Yes Soft to palpation Extremity: COMMON NORMALS: no joint enlargement and no pedal edema NARRATIVE EXTREMITY EXAM: No significant erythema but chronic venous stasis, purplish discoloration bilateral lower extremities, urination tissue and scabbing over healing ulceration on anteromedial right lower leg, small ulceration 1 x 2 cm, shallow without tunneling or undermining, small meta slough at the base. Neuro: COMMON NORMALS: patient oriented x3 and moves all extremities SENSORIUM/ORIENTATION: Yes alert Skin: COMMON NORMALS: no rashes or lesions noted GENERAL SKIN EXAM: no rashes or lesions noted OTHER: In addition, significant erythema of skin bilateral groins, buttocks, proximal posterior thighs. With maceration, moisture and shear stress. 1 cm spot of eschar on lateral second left toe, she states has had that spot for a while. Does not appear like necrosis. Urinary Catheter Management: Monsalve: Cath Placed During This Visit: yes Reason for Continuing Indwelling Catheter: Accurate Measurement of Urinary Output in Critically Ill Patients Urinary Catheter Date of Insertion: 01/25/23 Urinary Catheter Time of Insertion: 15:00 Data 02/05/23 03:44 02/05/23 16:30 A&P Assessment and plan (1) Cellulitis: Significant cellulitis bilateral groins, buttocks and proximal posterior thighs, maceration, some whitish discharge at the surface in the groins. Suspected fungal infection with superimposed bacterial cellulitis. Started nystatin cream, Diflucan. As per discussion with her resumed antibiotics with cefepime, vancomycin. Leukocytosis noted 21.5. Predominant neutrophilic 18.75. Likely secondary to cellulitis. Check C. difficile. L Lower extremities do not appear to have active cellulitis beyond chronic changes, ulceration on anterior medial right lower leg. 1cm spot of eschar on lateral second left toe, she states has had that spot for a while. Keep monitoring. Does not appear like necrosis. (2) Respiratory failure with hypoxia: Still requiring 2 L nasal cannula oxygen. Noted in negative balance. Discussed with pulmonology. Hold further diuretics at this time as appears intravascularly depleted. Some report of persistent pulmonary edema Noted and discussed some continued mild pulmonary edema on chest x-ray. Continue BiPAP nightly. Pulmonology documentation appreciated. (3) Atrial fibrillation with RVR: Heart rate now remains controlled, continue amiodarone, metoprolol. (4) CHF (congestive heart failure), NYHA class III: Appears may be reaching euvolemia. Stop diuretics. Reassess renal function. Today bicarb 32, creatinine noted 1.2, BUN 67. Qualifiers: Congestive heart failure chronicity: acute on chronic Congestive heart failure type: diastolic Qualified Code(s): I50.33 - Acute on chronic diastolic (congestive) heart failure (5) Supratherapeutic INR: INR noted 2.34. Follow-up INR. Some bleeding noted at [place] stress on the buttocks later today. Temporarily decreased today's warfarin dose to 2 mg. Follow-up INR. (6) KATHI (acute kidney injury): Creatinine noted with improvement down to 1.2 Currently stopped Bumex, Diamox as CHF appears likely resolved. Monitor volume status. Renal stone protocol CT obtained due to some persistence of microscopic hematuria. No obstruction noted. (7) Hyponatremia: Resolved (8) Hyperkalemia: Resolved (9) Wound, open, leg: (10) PAD (peripheral artery disease): (11) Hypertension: (12) Warfarin anticoagulation: (13) Carotid disease, bilateral: (14) COPD (chronic obstructive pulmonary disease): (15) CHF exacerbation: (16) Peripheral neuropathy: Plan Diarrhea: Check C. difficile. Hematuria: Most likely traumatic in setting of supratherapeutic INR. Discussed with case management. Attestations Medical Necessity Statement*: Continue admission for assessment and management of cellulitis, respiratory failure. Diagnoses Cellulitis L03.90 Respiratory failure with hypoxia J96.91 Atrial fibrillation with RVR I48.91 CHF (congestive heart failure), NYHA class III I50.33 Congestive heart failure chronicity: acute on chronic Congestive heart failure type: diastolic Supratherapeutic INR R79.1 KATHI (acute kidney injury) N17.9 Hyponatremia E87.1 Hyperkalemia E87.5 Wound, open, leg S81.809A PAD (peripheral artery disease) I73.9 Hypertension I10 Warfarin anticoagulation Z79.01 Carotid disease, bilateral I77.9 COPD (chronic obstructive pulmonary disease) J44.9 CHF exacerbation I50.9 Peripheral neuropathy G62.9
[2023-02-06] VITALS (17 sets, daily range): BP systolic 96–118; BP diastolic 45–69; PULSE 63–91; RESP 18–24; TEMP 36.9–37.1; O2SAT 90–96
[2023-02-06] MEDS: ipratropium 0.5 mg/2.5 mL Neb INHALATION ×4 (01:36→20:41)
[2023-02-06] MEDS: levalbuterol 0.63 mg/3 mL Neb INHALATION ×4 (01:36→20:41)
[2023-02-06 03:59] LABS: Basophils # 0.1 10^3/uL (0.0-0.1); Basophils % 0.4 %; Eosinophils # 0.5 10^3/uL (0.0-0.8); Eosinophils % 2.7 %; Hematocrit 27.6 % (37.0-47.0); Hemoglobin 8.3 g/dL (11.5-15.3); Mean Corpuscular HGB Conc 30.1 g/dL (30.0-36.0); Mean Corpuscular Volume 89.9 fl (81-99); Mean Platelet Volume 10.7 fL (7.4-10.4); Monocytes # 1.2 10^3/uL (0.2-0.9); Monocytes % 6.9 %; Neutrophils # 14.56 10^3/uL (1.8-7.7); Neutrophils % 83.3 %; Nucleated Red Blood Cells % 0 %; Platelet Count 246 10^3/cmm (130-400); Red Blood Count 3.07 10^6/uL (4.1-5.3); White Blood Count 17.5 10^3/uL (4.0-10.0)
[2023-02-06 04:15] LABS: INR 2.34 (0.8-1.2)
[2023-02-06] MEDS: cefepime 2,000 MG in sodium chloride 0.9% (plus) 50 ML 100 MG IV ×2 (04:24→17:44)
[2023-02-06 04:27] LABS: Alanine Aminotransferase 17 U/L (0-33); Albumin Level 3.7 g/dL (3.5-5.2); Alkaline Phosphatase 102 U/L (35-105); Anion Gap 14.4 (5-19); Aspartate Amino Transferase 20 U/L (0-32); Blood Urea Nitrogen 66 mg/dL (8-23); Calcium 8.8 mg/dL (8.5-10.5); Carbon Dioxide 31 mmol/L (22-29); Chloride 93 mmol/L (98-107); Globulin 2.8 g/dL (1.3-4.6); Glucose 93 mg/dL (65-115); Osmolality Calculated 299 mOsm/kg (285-295); Potassium 3.4 mmol/L (3.5-5.1); Sodium 135 mmol/L (136-145); Total Bilirubin 1.1 mg/dL (0.15-1.2); Total Protein 6.5 g/dL (6.6-8.7)
[2023-02-06] MEDS: budesonide 0.5 mg/2 mL Neb INHALATION ×2 (07:32→20:41)
[2023-02-06] MEDS: potassium chloride ER 20 mEq Tablet PO (09:45)
[2023-02-06] MEDS: metoprolol tartrate 25 mg Tablet PO ×2 (09:45→19:31)
[2023-02-06] MEDS: amiodarone 200 mg Tablet PO ×2 (09:45→17:45)
[2023-02-06] MEDS: aspirin 81 mg Chew Tablet PO (09:47)
[2023-02-06] MEDS: pantoprazole DR 40 mg Tablet PO (09:47)
[2023-02-06] MEDS: warfarin 3 mg Tablet PO (13:50)
[2023-02-06] MEDS: atorvastatin 40 mg Tablet 80 MG PO (17:45)
[2023-02-06] MEDS: nystatin cream 30 gm 1 APPLIC TOPICAL (17:45)
[2023-02-06] MEDS: vancomycin 1,000 MG in sodium chloride 0.9% 250 ML 250 MG IV (18:17)
[2023-02-06] MEDS: ropinirole 0.25 mg Tablet 0.5 MG PO (19:30)
[2023-02-06] MEDS: HYDROcodone-acetaminophen 5-325 mg Tablet 1 TAB PO (19:31)
--- NOTE | 2023-02-06 22:41 | PM.PN ---
Subjective Subjective: She reports doing slightly better today. Denies any new pain or discomfort. Being visited by her . Vitals/I&O/Wt Last Vital Signs Temp 98.5 F 02/06/23 19:36 Pulse 76 02/06/23 21:06 Resp 24 H 02/06/23 20:41 BP 118/69 02/06/23 19:36 Pulse Ox 92 02/06/23 20:42 O2 Del Method BiPAP 02/06/23 20:41 O2 Flow Rate 3 02/06/23 19:36 FiO2 40 02/06/23 20:42 02/06/23 02/06/23 02/06/23 06:59 14:59 22:59 Intake Total 170 / 1840 80 / 80 1420 / 1500 Output Total 350 / 1225 430 / 430 Balance -180 / 615 80 / 80 990 / 1070 Weight last 48 hrs Weight 91.308 kg Weight 90.582 kg Physical Exam Narrative: Sitting up in bed. Const: COMMON NORMALS: patient oriented x3 and alert GENERAL APPEARANCE: cooperative ORIENTATION/CONSCIOUSNESS: Yes awake HENMT: COMMON NORMALS: oropharynx normal Neck/C-Spine: COMMON NORMALS: no JVD Resp: COMMON NORMALS: normal respiratory effort and clear to auscultation bilaterally AUSCULTATION: clear to auscultation bilaterally Cardio: COMMON NORMALS: no JVD, regular rhythm, S1 normal heart sound present, S2 normal heart sound present and No murmurs present (Cardio) RHYTHM: regular rhythm HEART SOUNDS: S1 normal heart sound present and S2 normal heart sound present GI: COMMON NORMALS: Normal to inspection, nondistended, normoactive bowel sounds present, Soft to palpation and non-tender PALPATION: Yes Soft to palpation Extremity: COMMON NORMALS: no joint enlargement and no pedal edema NARRATIVE EXTREMITY EXAM: No significant erythema but chronic venous stasis, purplish discoloration bilateral lower extremities, healing ulceration on anteromedial right lower leg, small ulceration 1 x 2 cm, shallow without tunneling or undermining, small meta slough at the base. LLE in amando hose. Neuro: COMMON NORMALS: patient oriented x3 and moves all extremities SENSORIUM/ORIENTATION: Yes alert Skin: COMMON NORMALS: no rashes or lesions noted GENERAL SKIN EXAM: no rashes or lesions noted OTHER: Significant erythema of skin bilateral groins, buttocks, proximal posterior thighs. With maceration, moisture and shear stress. 1 cm spot of eschar on lateral second left toe, she states has had that spot for a while. Does not appear like necrosis. Urinary Catheter Management: Monsalve: Cath Placed During This Visit: yes Reason for Continuing Indwelling Catheter: Accurate Measurement of Urinary Output in Critically Ill Patients Urinary Catheter Date of Insertion: 01/25/23 Urinary Catheter Time of Insertion: 15:00 Data 02/06/23 03:44 02/06/23 03:44 A&P Assessment and plan (1) Cellulitis: Severe cellulitis bilateral groins, buttocks and proximal posterior thighs, maceration, some whitish discharge at the surface in the groins. Suspected fungal infection with superimposed bacterial cellulitis. Slightly less intensely red appearing cellulitis on posterior thighs/buttocks, groin. Persistent. Some improving leukocytosis today noted down to 17.5, predominantly neutrophilic 14.5. Mild monocytosis 1.2. She is afebrile. No other signs of sepsis. Continue IV antibiotics currently, continue antifungal. Discussed with her reassessing again in the morning, if continues to improve, consideration of transition to oral NT microbial agents with discharge to SNF. Discussed w case management. D/W her at bedside. Nystatin cream, Diflucan. Cefepime, vancomycin. Requested C. difficile. Lower extremities do not appear to have active cellulitis beyond chronic changes, ulceration on anterior medial right lower leg. 1cm spot of eschar on lateral second left toe, she states has had that spot for a while. Keep monitoring. Does not appear like necrosis. (2) Respiratory failure with hypoxia: Still requiring 2 L nasal cannula oxygen. Noted in negative balance. Resume oral diuretics. Bumetanide 1 mg twice daily. Noted and discussed some continued mild pulmonary edema on chest x-ray. Continue BiPAP nightly. Pulmonology documentation appreciated. (3) Atrial fibrillation with RVR: Heart rate now remains controlled, continue amiodarone, metoprolol. (4) CHF (congestive heart failure), NYHA class III: Appears may be reaching euvolemia. Resume PO diuretics. Reassess renal function. Today bicarb 32, creatinine noted 1.2, BUN 66. Qualifiers: Congestive heart failure chronicity: acute on chronic Congestive heart failure type: diastolic Qualified Code(s): I50.33 - Acute on chronic diastolic (congestive) heart failure (5) Supratherapeutic INR: INR noted 2.34. Follow-up INR. No further bleeding, resume warfarin 3mg. (6) KATHI (acute kidney injury): Creatinine noted with improvement down to 1.2 ,BUN 66 Resume PO Bumex maintenance, Off Diamox as CHF appears likely resolved. Monitor volume status. Renal stone protocol CT obtained due to some persistence of microscopic hematuria. No obstruction noted. (7) Hyponatremia: Resolved (8) Hyperkalemia: Resolved (9) Wound, open, leg: (10) PAD (peripheral artery disease): (11) Hypertension: (12) Warfarin anticoagulation: (13) Carotid disease, bilateral: (14) COPD (chronic obstructive pulmonary disease): (15) CHF exacerbation: (16) Peripheral neuropathy: Plan Diarrhea: Check C. difficile. Hematuria: Most likely traumatic in setting of supratherapeutic INR. Discussed with case management. Attestations Medical Necessity Statement*: Continue admission for assessment management of improving respiratory failure, CHF with KATHI, COPD exacerbation, pneumonia, reassessment after treatment of cellulitis, with persistent leukocytosis. Diagnoses Cellulitis L03.90 Respiratory failure with hypoxia J96.91 Atrial fibrillation with RVR I48.91 CHF (congestive heart failure), NYHA class III I50.33 Congestive heart failure chronicity: acute on chronic Congestive heart failure type: diastolic Supratherapeutic INR R79.1 KATHI (acute kidney injury) N17.9 Hyponatremia E87.1 Hyperkalemia E87.5 Wound, open, leg S81.809A PAD (peripheral artery disease) I73.9 Hypertension I10 Warfarin anticoagulation Z79.01 Carotid disease, bilateral I77.9 COPD (chronic obstructive pulmonary disease) J44.9 CHF exacerbation I50.9 Peripheral neuropathy G62.9
[2023-02-07] VITALS (12 sets, daily range): BP systolic 94–103; BP diastolic 54–61; PULSE 74–92; RESP 19–25; TEMP 36.6–37.2; O2SAT 90–97
[2023-02-07] MEDS: ipratropium 0.5 mg/2.5 mL Neb INHALATION ×4 (01:57→19:53)
[2023-02-07] MEDS: levalbuterol 0.63 mg/3 mL Neb INHALATION ×4 (01:57→19:53)
[2023-02-07 03:11] LABS: Basophils # 0.1 10^3/uL (0.0-0.1); Basophils % 0.6 %; Eosinophils # 0.5 10^3/uL (0.0-0.8); Eosinophils % 2.8 %; Hematocrit 27.8 % (37.0-47.0); Hemoglobin 8.4 g/dL (11.5-15.3); Lymphocytes # 0.9 10^3/uL (0.8-4.8); Mean Corpuscular HGB Conc 30.2 g/dL (30.0-36.0); Mean Corpuscular Hemoglobin 27.2 pg (28.0-34.0); Mean Platelet Volume 11.3 fL (7.4-10.4); Monocytes # 1.2 10^3/uL (0.2-0.9); Monocytes % 6.7 %; Neutrophils # 14.55 10^3/uL (1.8-7.7); Neutrophils % 84.4 %; Nucleated Red Blood Cells % 0 %; Platelet Count 259 10^3/cmm (130-400); Red Blood Count 3.09 10^6/uL (4.1-5.3); Red Cell Distribution Width 16.1 % (12.1-15.1); White Blood Count 17.3 10^3/uL (4.0-10.0)
[2023-02-07 03:35] LABS: Alanine Aminotransferase 15 U/L (0-33); Albumin Level 3.5 g/dL (3.5-5.2); Alkaline Phosphatase 99 U/L (35-105); Anion Gap 14.2 (5-19); Aspartate Amino Transferase 22 U/L (0-32); Blood Urea Nitrogen 65 mg/dL (8-23); Calcium 8.3 mg/dL (8.5-10.5); Carbon Dioxide 28 mmol/L (22-29); Chloride 94 mmol/L (98-107); Glucose 84 mg/dL (65-115); Osmolality Calculated 294 mOsm/kg (285-295); Potassium 3.2 mmol/L (3.5-5.1); Sodium 133 mmol/L (136-145); Total Bilirubin 1.2 mg/dL (0.15-1.2); Total Protein 6.5 g/dL (6.6-8.7)
[2023-02-07] MEDS: cefepime 2,000 MG in sodium chloride 0.9% (plus) 50 ML 100 MG IV ×2 (05:00→17:12)
[2023-02-07] MEDS: budesonide 0.5 mg/2 mL Neb INHALATION ×2 (08:07→19:53)
--- NOTE | 2023-02-07 08:11 | PC.SOCIAL ---
IMM update Page 2 of IMM dated and reviewed with pt. Copy provided ,dated and initialed and placed in chart.
[2023-02-07] MEDS: amiodarone 200 mg Tablet PO ×2 (08:30→17:12)
[2023-02-07] MEDS: pantoprazole DR 40 mg Tablet PO (08:30)
[2023-02-07] MEDS: bumetanide 1 mg Tablet PO ×2 (08:30→17:12)
[2023-02-07] MEDS: aspirin 81 mg Chew Tablet PO (08:30)
[2023-02-07] MEDS: metoprolol tartrate 25 mg Tablet PO ×2 (08:31→20:29)
[2023-02-07] MEDS: fluticasone nasal spray 16gm Btl 2 SPRAY NASAL (08:31)
--- NOTE | 2023-02-07 09:37 | PM.PN ---
Subjective Subjective: Clinically no significant change Currently on IV vancomycin and Cefepime, oral fluconazole 100 Mg daily Sitting out of bed to chair-reported reduced to pain in her thighs Currently still requiring 3 L supplemental oxygen Of Bumex last 24 hours-net even fluid balance WBC count stable at 17 K Hypokalemia supplemented Medications: Reviewed: Yes Vitals/I&O/Wt Last Vital Signs Temp 98 F 02/07/23 08:00 Pulse 74 02/07/23 08:00 Resp 20 H 02/07/23 08:00 BP 94/54 02/07/23 08:00 Pulse Ox 92 02/07/23 08:00 O2 Del Method Nasal Cannula 02/07/23 08:00 O2 Flow Rate 3 02/07/23 08:00 FiO2 40 02/07/23 03:14 02/06/23 02/07/23 02/07/23 22:59 06:59 14:59 Intake Total 1420 / 1500 290 / 1790 Output Total 430 / 430 400 / 830 Balance 990 / 1070 -110 / 960 Weight last 48 hrs Weight 204 lb 9.6 oz Weight 201 lb 4.8 oz Physical Exam Narrative: General: alert, NAD HEENT: conj clear, EOMI, PERRL, dry mucous membranes Neck: supple, no meningismus Heme: no cervical LAP Respiratory: Inspection: No visible deformity of the chest wall Palpation: Trachea is mildly deviated to the right, bilateral symmetric expansion Percussion: Bilateral tympanic percussion note both anterior and posteriorly Auscultation:There are minimal Bilateral bibasilar crackles Cardiovascular: rrr, nl s1s2, no mrg Abdomen: soft, nt, nd, no r/g, bs+ Extremities: pulses +, no edema, no c/c : no CVA tenderness Skin: Diffuse blanching rash on posterior thighs as well as perineum MSK: no back or neck pain Neurologic: grossly intact Urinary Catheter Management: Monsalve: Cath Placed During This Visit: yes Reason for Continuing Indwelling Catheter: Acute Urinary Retention or Obstruction Urinary Catheter Date of Insertion: 01/25/23 Urinary Catheter Time of Insertion: 15:00 Data 02/08/23 01:39 02/08/23 01:39 Other Labs: Radiology Impressions Chest CT 01/28/23 11:24 IMPRESSION: 1. New mild pulmonary edema and possible pneumonitis. 2. Small bilateral pleural effusions, RIGHT greater than LEFT. 3. Compressive atelectasis at the lung bases. 4. Cardiomegaly. 5. Atherosclerosis thoracic and suprarenal abdominal aorta. Modified Barium Swallow 01/30/23 09:06 IMPRESSION: Modified barium swallow as above. Chest X-Ray 02/05/23 06:00 IMPRESSION: 1. Continued mild pulmonary edema. 2. Small but increasing RIGHT pleural effusion. Small but improving LEFT pleural effusion. Abdomen/Pelvis CT 02/05/23 08:28 IMPRESSION: 1. No obstructing renal or ureteral calculi. No hydronephrosis in either kidney. 2. Bilateral renal cortical scarring with renal cysts. 3. Small RIGHT greater than LEFT pleural effusions. 4. Mild hepatomegaly. 5. Small esophageal hiatal hernia. 6. Chronic compression fractures with kyphoplasty/vertebroplasty changes described above. 7. Monsalve catheter Laboratory Results WBC 16.7 10^3/uL (4.0-10.0) H 02/08/23 01:39 Corrected WBC Cancelled 01/27/23 04:11 RBC 3.07 10^6/uL (4.1-5.3) L 02/08/23 01:39 Hgb 8.2 g/dL (11.5-15.3) L 02/08/23 01:39 Hct 27.2 % (37.0-47.0) L 02/08/23 01:39 MCV 88.6 fl (81-99) 02/08/23 01:39 MCH 26.7 pg (28.0-34.0) L 02/08/23 01:39 MCHC 30.1 g/dL (30.0-36.0) 02/08/23 01:39 RDW 15.9 % (12.1-15.1) H 02/08/23 01:39 Plt Count 269 10^3/cmm (130-400) 02/08/23 01:39 MPV 11.4 fL (7.4-10.4) H 02/08/23 01:39 Gran % Cancelled 01/27/23 04:11 Neut % (Auto) 82.9 % 02/08/23 01:39 Lymph % (Auto) 5.4 % 02/08/23 01:39 Whitley % (Auto) 7.4 % 02/08/23 01:39 Eos % (Auto) 3.1 % 02/08/23 01:39 Baso % (Auto) 0.7 % 02/08/23 01:39 Neut # (Auto) 13.82 10^3/uL (1.8-7.7) H 02/08/23 01:39 Lymph # (Auto) 0.9 10^3/uL (0.8-4.8) 02/08/23 01:39 Whitley # (Auto) 1.2 10^3/uL (0.2-0.9) H 02/08/23 01:39 Eos # (Auto) 0.5 10^3/uL (0.0-0.8) 02/08/23 01:39 Baso # (Auto) 0.1 10^3/uL (0.0-0.1) 02/08/23 01:39 Absolute Gran (auto) Cancelled 01/27/23 04:11 Nucleated RBC % (auto) 0 % 02/08/23 01:39 Nucleated RBCs # 0.0 /100WBC 02/08/23 01:39 PT 39.10 SECONDS (12.1-14.9) H 02/08/23 01:39 INR 3.82 (0.8-1.2) H 02/08/23 01:39 Specimen Type Arterial 02/01/23 08:02 Sample Site Radial, right 02/01/23 08:02 ABG pH 7.51 (7.35-7.45) H 02/01/23 08:02 ABG pCO2 59.2 mmHg (35-45) H 02/01/23 08:02 ABG pO2 115.0 mmHg (80.0-100.0) H 02/01/23 08:02 ABG HCO3 46.7 mmol/L (22-26) H 02/01/23 08:02 ABG O2 Saturation 99.7 02/01/23 08:02 ABG Base Excess 20.8 mmol/L (-2.0-2.0) H 02/01/23 08:02 Joe Test Pos 02/01/23 08:02 A-a O2 Gradient 44.8 mmHg (5-10) H 02/01/23 08:02 Hematocrit 31.5 % (37-47) L 02/01/23 08:02 Hgb O2 Saturation 97.7 % (95-100) 02/01/23 08:02 Carboxyhemoglobin 1.5 %THgb (0.4-20.1) 02/01/23 08:02 Methemoglobin 0.4 % (0.4-1.5) 02/01/23 08:02 Total Hemoglobin 10.3 g/dL (12-16) L 02/01/23 08:02 Sodium 136.0 mmol/L (131-143) 02/01/23 08:02 Potassium 2.8 mmol/L (3.5-5.0) L 02/01/23 08:02 Glucose 104.0 mg/dL (70-115) 02/01/23 08:02 Ionized Calcium 1.1 mmol/L (1.1-1.4) 02/01/23 08:02 O2 Delivery Device Nc 02/01/23 08:02 O2 Liters/Min 40.0 % 02/01/23 08:02 FiO2 75.0 % 02/01/23 08:02 Mechanical Technologist ID [place] 02/01/23 08:02 Sodium 136 mmol/L (136-145) 02/08/23 01:39 Potassium 3.1 mmol/L (3.5-5.1) L 02/08/23 01:39 Chloride 96 mmol/L (98-107) L 02/08/23 01:39 Carbon Dioxide 28 mmol/L (22-29) 02/08/23 01:39 Anion Gap 15.1 (5-19) 02/08/23 01:39 BUN 60 mg/dL (8-23) H 02/08/23 01:39 Creatinine 1.4 mg/dL (0.5-0.9) H 02/08/23 01:39 GFR Calculation Not Reportable 02/08/23 01:39 Glucose 88 mg/dL (65-115) 02/08/23 01:39 Calculated Osmolality 298 mOsm/kg (285-295) H 02/08/23 01:39 Lactic Acid 1.5 mmol/L (0.5-2.2) 01/25/23 15:40 Calcium 8.5 mg/dL (8.5-10.5) 02/08/23 01:39 Phosphorus 5.6 mg/dL (2.5-4.5) H 01/26/23 03:10 Magnesium 3.0 mg/dL (1.7-2.3) H 02/05/23 16:30 Total Bilirubin 1.2 mg/dL (0.15-1.2) 02/07/23 02:35 AST 22 U/L (0-32) 02/07/23 02:35 ALT 15 U/L (0-33) 02/07/23 02:35 Alkaline Phosphatase 99 U/L (35-105) 02/07/23 02:35 Troponin T Baseline 16 ng/L (0-10) H 01/25/23 10:08 Troponin T 120 Minute 14.66 ng/L (0-10) H 01/25/23 12:00 Delta Troponin T -1.34 ABS# (0-10) L 01/25/23 12:00 Troponin T Hi Sens 6Hr 13.84 ng/L (0-10) H 01/25/23 15:45 Troponin T Hi Sens 6Hr Delta -2.16 ng/L (0-12) L 01/25/23 15:45 C-Reactive Protein 324.0 mg/L (0.0-4.9) H 01/25/23 12:00 NT-Pro-B Natriuret Pep 2856 pg/mL (0-125) H 01/25/23 12:00 Total Protein 6.5 g/dL (6.6-8.7) L 02/07/23 02:35 Albumin 3.5 g/dL (3.5-5.2) 02/07/23 02:35 Globulin 3.0 g/dL (1.3-4.6) 02/07/23 02:35 Procalcitonin 0.15 ng/mL (0-0.5) 02/05/23 03:44 Urine Color Straw (Yellow) 02/05/23 11:46 Urine Appearance Hazy (CLEAR) A 02/05/23 11:46 Urine pH 8 (5-7) H 02/05/23 11:46 Ur Specific [place] 1.015 (1.005-1.030) 02/05/23 11:46 Urine Protein Neg (Negative) 02/05/23 11:46 Urine Glucose (UA) Norm (Normal) 02/05/23 11:46 Urine Ketones Negative (Negative) 02/05/23 11:46 Urine Blood 3+ (Negative) H 02/05/23 11:46 Urine Nitrate Negative (Negative) 02/05/23 11:46 Urine Bilirubin Neg (Negative) 02/05/23 11:46 Prot Sulfosalicylic Acd Negative (Negative) 02/05/23 11:46 Urine Urobilinogen Norm mg/dL (Negative) 02/05/23 11:46 Ur Leukocyte Esterase Negative (Negative) 02/05/23 11:46 Urine RBC 40-50 /hpf (0-2) H 02/05/23 11:46 Urine WBC 0-4 /hpf (0-5) H 02/05/23 11:46 Ur Eosinophil Smear 0 (0-0) 01/28/23 15:00 Ur Squamous Epith Cells Rare /hpf (0-5) 02/05/23 11:46 Uric Acid Crystals 10-15 /hpf H 01/29/23 11:15 Amorphous Sediment Not Reportable 02/05/23 11:46 Urine Bacteria Trace /hpf (NONE) 02/05/23 11:46 Hyaline Casts 0-4 /lpf H 01/29/23 11:15 Urine Mucus Trace /hpf 02/05/23 11:46 Urine Yeast 1+ /hpf H 02/05/23 11:46 Urine Eosinophils No eosinophils seen 01/28/23 15:00 Ur Random Sodium 38 mmol/L 01/28/23 15:00 Ur Random Potassium 32 mmol/L 01/28/23 15:00 Ur Random Chloride 61 mmol/L 01/28/23 15:00 Urine Creatinine 40 mg/dL (28-217) 01/28/23 15:00 Nasal Influ A H1 2008 PCR Not detected (NOT DETECT) 01/29/23 11:20 Vancomycin Trough 16.8 ug/mL (10-15) H 02/07/23 17:05 Digoxin 0.7 ng/mL (0.6-1.2) 02/02/23 02:58 Adenovirus (PCR) Not detected (NOT DETECT) 01/29/23 11:20 C. pneumoniae DNA (PCR) Not detected (NOT DETECT) 01/29/23 11:20 Coronavirus 229E (PCR) Not detected (NOT DETECT) 01/29/23 11:20 Human Metapneumovir PCR Not detected (NOT DETECT) 01/29/23 11:20 Influenza A (H1) PCR Not detected (NOT DETECT) 01/29/23 11:20 Influenza A (H3) PCR Not detected (NOT DETECT) 01/29/23 11:20 Influenza Type A (PCR) Not detected (NOT DETECT) 01/29/23 11:20 Influenza Type B (PCR) Not detected (NOT DETECT) 01/29/23 11:20 M. pneumoniae (PCR) Not detected (NOT DETECT) 01/29/23 11:20 Parainfluenza 1 (PCR) Not detected (NOT DETECT) 01/29/23 11:20 Parainfluenza 2 (PCR) Not detected (NOT DETECT) 01/29/23 11:20 Parainfluenza 3 (PCR) Not detected (NOT DETECT) 01/29/23 11:20 Parainfluenza 4 (PCR) Not detected (NOT DETECT) 01/29/23 11:20 RSV Type A (PCR) Not detected (NOT DETECT) 01/29/23 11:20 RSV Type B (PCR) Not detected (NOT DETECT) 01/29/23 11:20 Entero/Rhino (PCR) Not detected (NOT DETECT) 01/29/23 11:20 SARS-CoV-2 (PCR) Not detected (NOT DETECT) 01/29/23 11:20 A&P Assessment and plan (1) Respiratory failure with hypoxia: Currently requiring 2-3 L supplemental oxygen and maintaining saturation > 88% Patient had underlying CHF and currently in exacerbation-triggered by A-fib RVR Echocardiogram 01/26/2023 showed normal LV size systolic function with EF 60%. Currently rate is controlled. Currently on amiodarone 200 Mg p.o. twice daily. Metoprolol 25 Mg p.o. twice daily Her input output charting showed she is net 960 L over last 24 hours-however charting of her oral intake is questionable; overall net negative -3.5 L CMP showed bicarb 28, K3.1 supplemented, her BUN/creatinine stable We will resume Bumex 1 Mg twice daily We will monitor electrolytes, input output, renal functions -Encourage patient to work with physical therapy and sit out of bed to chair (2) CHF exacerbation: (3) CHF (congestive heart failure), NYHA class III: Qualifiers: Congestive heart failure chronicity: acute on chronic Congestive heart failure type: diastolic Qualified Code(s): I50.33 - Acute on chronic diastolic (congestive) heart failure (4) Diuretic-induced hypokalemia: Potassium 3.2 supplemented Continue to monitor and supplement accordingly (5) Leukocytosis: Persistent leukocytosis-no fevers-could be a component of dehydration as well - improving However there is significant rash in perineal area and back of thighs -there is some skin excoriation Currently on IV vancomycin and cefepime; oral fluconazole (6) Candidiasis: there is significant rash in perineal area and back of thighs -there is some skin excoriation Started on oral flucanazole 100 Mg daily Attestations Medical Necessity Statement*: Currently And IV antibiotics Coding Level of Care Code 81552 Diagnoses Respiratory failure with hypoxia J96.91 CHF exacerbation I50.9 CHF (congestive heart failure), NYHA class III I50.33 Congestive heart failure chronicity: acute on chronic Congestive heart failure type: diastolic Diuretic-induced hypokalemia E87.6; T50.2X5A Leukocytosis D72.829 Candidiasis B37.9 Time Spent (min) 41
[2023-02-07 10:02] LABS: INR 2.83 (0.8-1.2)
[2023-02-07] MEDS: nystatin cream 30 gm 1 APPLIC TOPICAL ×2 (11:29→20:29)
[2023-02-07] MEDS: warfarin 3 mg Tablet PO (14:24)
[2023-02-07] MEDS: atorvastatin 40 mg Tablet 80 MG PO (17:12)
[2023-02-07 17:39] LABS: Vancomycin Trough 16.8 ug/mL (10-15)
[2023-02-07] MEDS: vancomycin 1,000 MG in sodium chloride 0.9% 250 ML 250 MG IV (18:25)
--- NOTE | 2023-02-07 20:07 | PC.NURSE ---
Patient requesting to have her pain pill tonight for her butt and legs. Hydrocodone as ordered today. Informed Dr Sherman and received new order to restart hydrocodone 5/325 PO every 4 hours as needed for pain. RBVO
--- NOTE | 2023-02-07 20:21 | P.PN_ITS ---
Subjective Subjective: She states is doing about similar. Her bottom is feeling raw . Denies trouble breathing with current oxygen support at rest. No chest pain. Vitals/I&O/Wt Last Vital Signs Temp 98.9 F 02/07/23 16:00 Pulse 88 02/07/23 20:00 Resp 21 H 02/07/23 19:54 BP 99/61 02/07/23 16:00 Pulse Ox 95 02/07/23 20:00 O2 Del Method Nasal Cannula 02/07/23 19:54 O2 Flow Rate 3 02/07/23 19:54 FiO2 40 02/07/23 20:00 02/07/23 02/07/23 02/07/23 06:59 14:59 22:59 Intake Total 290 / 1790 850 / 850 Output Total 400 / 830 650 / 650 Balance -110 / 960 200 / 200 Weight last 48 hrs Weight 92.805 kg Weight 91.308 kg Physical Exam Narrative: Sitting up in bed. Const: COMMON NORMALS: patient oriented x3 and alert GENERAL APPEARANCE: cooperative ORIENTATION/CONSCIOUSNESS: Yes awake HENMT: COMMON NORMALS: oropharynx normal Neck/C-Spine: COMMON NORMALS: no JVD Resp: COMMON NORMALS: normal respiratory effort and clear to auscultation bilaterally AUSCULTATION: clear to auscultation bilaterally Cardio: COMMON NORMALS: no JVD, regular rhythm, S1 normal heart sound present, S2 normal heart sound present and No murmurs present (Cardio) RHYTHM: regular rhythm HEART SOUNDS: S1 normal heart sound present and S2 normal heart sound present GI: COMMON NORMALS: Normal to inspection, nondistended, normoactive bowel sounds present, Soft to palpation and non-tender PALPATION: Yes Soft to palpation Extremity: COMMON NORMALS: no joint enlargement and no pedal edema NARRATIVE EXTREMITY EXAM: LE no significant erythema but chronic venous stasis, purplish discoloration bilateral lower extremities, healing ulceration on anteromedial right lower leg, small ulceration 1 x 2 cm, shallow without tunneling or undermining, small meta slough at the base. LLE in amando hose. Neuro: COMMON NORMALS: patient oriented x3 and moves all extremities SENSORIUM/ORIENTATION: Yes alert Skin: COMMON NORMALS: no rashes or lesions noted GENERAL SKIN EXAM: no rashes or lesions noted OTHER: Persistent erythema of skin bilateral groins, buttocks, proximal posterior th ighs. With maceration, moisture and shear stress. 1 cm spot of eschar on lateral second left toe, she states has had that spot for a while. Does not appear like necrosis. Urinary Catheter Management: Monsalve: Cath Placed During This Visit: yes Reason for Continuing Indwelling Catheter: Accurate Measurement of Urinary Output in Critically Ill Patients Urinary Catheter Date of Insertion: 01/25/23 Urinary Catheter Time of Insertion: 15:00 Data 02/07/23 02:35 02/07/23 02:35 Micro: Microbiology 02/05/23 11:46 Urine Culture - Preliminary Urine,Clean Catch Yeast A&P Assessment and plan (1) Cellulitis: Persistence of her cellulitis. Continue IV antibiotics as well as oral and topical antifungal at this time. Leukocytosis without further worsening, but not much improvement down to 17.3. Predominantly neutrophilic 14.55. Urine culture now growing yeast as well. We will increase Diflucan dose to 200 mg daily. Follow-up urine culture. Yesterday she wanted to discharge, however, on discussion of her condition with decision for further hospitalization she is agreeable to stay to continue hospitalization for IV antibiotic treatment. Discharge is delayed. Discussed with case management. Severe cellulitis bilateral groins, buttocks and proximal posterior thighs, maceration, some whitish discharge at the surface in the groins. Suspected fungal infection with superimposed bacterial cellulitis. Continue IV antibiotics currently, continue antifungal. Discussed with her reassessing again in the morning, if continues to improve, consideration of transition to oral NT microbial agents with discharge to SNF. Discussed w case management. D/W her at bedside. Nystatin cream, Diflucan. Cefepime, vancomycin. Requested C. difficile. Lower extremities do not appear to have active cellulitis beyond chronic changes, ulceration on anterior medial right lower leg. 1cm spot of eschar on lateral second left toe, she states has had that spot for a while. Keep monitoring. Does not appear like necrosis. (2) Respiratory failure with hypoxia: Still requiring 2 L nasal cannula oxygen. Noted in negative balance. Resume oral diuretics. Bumetanide 1 mg twice daily. Noted and discussed some continued mild pulmonary edema on chest x-ray. Continue BiPAP nightly. Pulmonology documentation appreciated. (3) Atrial fibrillation with RVR: Heart rate now remains controlled, continue amiodarone, metoprolol. (4) CHF (congestive heart failure), NYHA class III: Appears may be reaching euvolemia. Resume PO diuretics. Reassess renal function. Today bicarb 32, creatinine noted 1.2, BUN 66. Qualifiers: Congestive heart failure chronicity: acute on chronic Congestive heart failure type: diastolic Qualified Code(s): I50.33 - Acute on chronic diastolic (congestive) heart failure (5) Supratherapeutic INR: INR noted 2.34. Follow-up INR. No further bleeding, resume warfarin 3mg. (6) KATHI (acute kidney injury): Creatinine noted with improvement down to 1.2 ,BUN 66 Resume PO Bumex maintenance, Off Diamox as CHF appears likely resolved. Monitor volume status. Renal stone protocol CT obtained due to some persistence of microscopic hematu ti. No obstruction noted. (7) Hyponatremia: Resolved (8) Hyperkalemia: Resolved (9) Wound, open, leg: (10) PAD (peripheral artery disease): (11) Hypertension: (12) Warfarin anticoagulation: (13) Carotid disease, bilateral: (14) COPD (chronic obstructive pulmonary disease): (15) CHF exacerbation: (16) Peripheral neuropathy: Plan Possible UTI: Possible complicated/fungal UTI with yeast with 60-70 CFU noted in urine. Follow-up culture. Increase Diflucan dose to 200 mg daily. Diarrhea: Requested C. difficile. Hematuria: Most likely traumatic in setting of supratherapeutic INR. Discussed with case management. Attestations Medical Necessity Statement*: Continue admission for assessment management of severe cellulitis, possibly complicated/fungal UTI. Diagnoses Cellulitis L03.90 Respiratory failure with hypoxia J96.91 Atrial fibrillation with RVR I48.91 CHF (congestive heart failure), NYHA class III I50.33 Congestive heart failure chronicity: acute on chronic Congestive heart failure type: diastolic Supratherapeutic INR R79.1 KATHI (acute kidney injury) N17.9 Hyponatremia E87.1 Hyperkalemia E87.5 Wound, open, leg S81.809A PAD (peripheral artery disease) I73.9 Hypertension I10 Warfarin anticoagulation Z79.01 Carotid disease, bilateral I77.9 COPD (chronic obstructive pulmonary disease) J44.9 CHF exacerbation I50.9 Peripheral neuropathy G62.9
[2023-02-07] MEDS: HYDROcodone-acetaminophen 5-325 mg Tablet 1 TAB PO (20:28)
[2023-02-07] MEDS: ropinirole 0.25 mg Tablet 0.5 MG PO (20:28)
[2023-02-08] VITALS (16 sets, daily range): BP systolic 93–105; BP diastolic 52–60; PULSE 68–98; RESP 16–26; TEMP 36.4–36.8; O2SAT 90–97
[2023-02-08] MEDS: ipratropium 0.5 mg/2.5 mL Neb INHALATION ×4 (02:12→19:56)
[2023-02-08] MEDS: levalbuterol 0.63 mg/3 mL Neb INHALATION ×4 (02:12→19:56)
[2023-02-08 02:32] LABS: Basophils # 0.1 10^3/uL (0.0-0.1); Basophils % 0.7 %; Eosinophils # 0.5 10^3/uL (0.0-0.8); Eosinophils % 3.1 %; Hematocrit 27.2 % (37.0-47.0); Hemoglobin 8.2 g/dL (11.5-15.3); Lymphocytes # 0.9 10^3/uL (0.8-4.8); Lymphocytes % 5.4 %; Mean Corpuscular HGB Conc 30.1 g/dL (30.0-36.0); Mean Corpuscular Hemoglobin 26.7 pg (28.0-34.0); Mean Corpuscular Volume 88.6 fl (81-99); Mean Platelet Volume 11.4 fL (7.4-10.4); Monocytes # 1.2 10^3/uL (0.2-0.9); Monocytes % 7.4 %; Neutrophils # 13.82 10^3/uL (1.8-7.7); Neutrophils % 82.9 %; Nucleated Red Blood Cells % 0 %; Platelet Count 269 10^3/cmm (130-400); Red Blood Count 3.07 10^6/uL (4.1-5.3); Red Cell Distribution Width 15.9 % (12.1-15.1); White Blood Count 16.7 10^3/uL (4.0-10.0)
[2023-02-08 02:58] LABS: Anion Gap 15.1 (5-19); Blood Urea Nitrogen 60 mg/dL (8-23); Calcium 8.5 mg/dL (8.5-10.5); Carbon Dioxide 28 mmol/L (22-29); Chloride 96 mmol/L (98-107); Glucose 88 mg/dL (65-115); Osmolality Calculated 298 mOsm/kg (285-295); Potassium 3.1 mmol/L (3.5-5.1); Sodium 136 mmol/L (136-145)
[2023-02-08 03:28] LABS: INR 3.82 (0.8-1.2)
[2023-02-08] MEDS: cefepime 2,000 MG in sodium chloride 0.9% (plus) 50 ML 100 MG IV ×2 (05:14→16:56)
[2023-02-08] MEDS: budesonide 0.5 mg/2 mL Neb INHALATION ×2 (07:34→19:56)
[2023-02-08] MEDS: pantoprazole DR 40 mg Tablet PO (08:32)
[2023-02-08] MEDS: amiodarone 200 mg Tablet PO ×2 (08:32→17:02)
[2023-02-08] MEDS: potassium chloride ER 20 mEq Tablet 40 MEQ PO ×2 (08:32→17:02)
[2023-02-08] MEDS: metoprolol tartrate 25 mg Tablet PO ×2 (08:32→20:05)
[2023-02-08] MEDS: aspirin 81 mg Chew Tablet PO (08:32)
[2023-02-08] MEDS: fluconazole 100 mg Tablet 200 MG PO (08:33)
[2023-02-08] MEDS: fluticasone nasal spray 16gm Btl 2 SPRAY NASAL (08:33)
[2023-02-08] MEDS: bumetanide 1 mg Tablet PO (08:33)
[2023-02-08] MEDS: nystatin cream 30 gm 1 APPLIC TOPICAL ×2 (12:27→18:36)
--- NOTE | 2023-02-08 13:22 | PM.PN ---
Subjective Subjective: She is sitting up in bed. Denies any new pain. Has not had any bleeding. States breathing is okay. Vitals/I&O/Wt Last Vital Signs Temp 98.0 F 02/08/23 11:58 Pulse 88 02/08/23 11:58 Resp 26 H 02/08/23 11:58 BP 104/53 02/08/23 11:58 Pulse Ox 90 02/08/23 11:58 O2 Del Method Nasal Cannula 02/08/23 11:58 O2 Flow Rate 3 02/08/23 11:58 FiO2 3 02/08/23 07:37 02/07/23 02/08/23 02/08/23 22:59 06:59 14:59 Intake Total 1220 / 1220 550 / 1770 Output Total 650 / 650 100 / 750 Balance 570 / 570 450 / 1020 Weight last 48 hrs Weight 127.913 kg Weight 92.805 kg Physical Exam Narrative: Sitting up in bed. Const: COMMON NORMALS: patient oriented x3 and alert GENERAL APPEARANCE: cooperative ORIENTATION/CONSCIOUSNESS: Yes awake HENMT: COMMON NORMALS: oropharynx normal Neck/C-Spine: COMMON NORMALS: no JVD Resp: COMMON NORMALS: normal respiratory effort and clear to auscultation bilaterally AUSCULTATION: clear to auscultation bilaterally Cardio: COMMON NORMALS: no JVD, regular rhythm, S1 normal heart sound present, S2 normal heart sound present and No murmurs present (Cardio) RHYTHM: regular rhythm HEART SOUNDS: S1 normal heart sound present and S2 normal heart sound present GI: COMMON NORMALS: Normal to inspection, nondistended, normoactive bowel sounds present, Soft to palpation and non-tender PALPATION: Yes Soft to palpation Extremity: COMMON NORMALS: no joint enlargement and no pedal edema NARRATIVE EXTREMITY EXAM: LE no significant erythema but chronic venous stasis, purplish discoloration bilateral lower extremities, healing ulceration on anteromedial right lower leg, small ulceration 1 x 2 cm, shallow without tunneling or undermining, small meta slough at the base. LLE in amando hose. Neuro: COMMON NORMALS: patient oriented x3 and moves all extremities SENSORIUM/ORIENTATION: Yes alert Skin: COMMON NORMALS: no rashes or lesions noted GENERAL SKIN EXAM: no rashes or lesions noted OTHER: Persistent extensive erythema of skin bilateral groins, buttocks, proximal posterior thighs. Symptoms appearing. With maceration on posterior buttocks, moisture and shear stress. 1 cm spot of eschar on lateral second left toe, she states has had that spot for a while. Does not appear like necrosis. Urinary Catheter Management: Monsalve: Cath Placed During This Visit: yes Reason for Continuing Indwelling Catheter: Acute Urinary Retention or Obstruction Urinary Catheter Date of Insertion: 01/25/23 Urinary Catheter Time of Insertion: 15:00 Data 02/08/23 01:39 02/08/23 01:39 Micro: Microbiology 02/05/23 11:46 Urine Culture - Preliminary Urine,Clean Catch Yeast A&P Assessment and plan (1) Cellulitis: Persistent extensive cellulitis, maceration, with suspected fungal and superimposed bacterial infection. Continue Diflucan, dose increased to 200 mg daily. Continue topical nystatin. Continue IV antibiotic coverage with cefepime, vancomycin. Persistence of her cellulitis. Continue IV antibiotics as well as oral and topical antifungal at this time. Leukocytosis without further worsening, but not much improvement down to 17.3. Predominantly neutrophilic 14.55. Urine culture now growing yeast as well. We will increase Diflucan dose to 200 mg daily. Follow-up urine culture. Discussed with her continued hospitalization she is agreeable to stay to continue for IV antibiotic treatment, antifungals. Discharge is delayed. Discussed with case management. Severe cellulitis bilateral groins, buttocks and proximal posterior thighs, maceration, some whitish discharge at the surface in the groins. Suspected fungal infection with superimposed bacterial cellulitis. Continue IV antibiotics currently, continue antifungal. Discussed with her reassessing again in the morning, if continues to improve, consideration of transition to oral NT microbial agents with discharge to SNF. Discussed w case management. Requested C. difficile. Lower extremities do not appear to have active cellulitis beyond chronic changes, ulceration on anterior medial right lower leg. 1cm spot of eschar on lateral second left toe, she states has had that spot for a while. Keep monitoring. Does not appear like necrosis. (2) Respiratory failure with hypoxia: On 3 L nasal cannula. Is noted 1 L positive, was restarted on Bumex 1 mg twice daily yesterday. However, today also with some worsening creatinine up to 1.4. Discussed with pulmonology, will continue Bumex but decrease down to 1 mg daily frequency. Reassess volume status, renal function. Continue BiPAP nightly. (3) Atrial fibrillation with RVR: Heart rate now remains controlled, continue amiodarone, metoprolol. (4) CHF (congestive heart failure), NYHA class III: Appears may be reaching euvolemia. Resume PO diuretics. Reassess renal function. Today bicarb 32, creatinine noted 1.2, BUN 66. Qualifiers: Congestive heart failure chronicity: acute on chronic Congestive heart failure type: diastolic Qualified Code(s): I50.33 - Acute on chronic diastolic (congestive) heart failure (5) Supratherapeutic INR: INR noted 2.34. Follow-up INR. No further bleeding, resume warfarin 3mg. (6) KATHI (acute kidney injury): Creatinine noted with improvement down to 1.2 ,BUN 66 Resume PO Bumex maintenance, Off Diamox as CHF appears likely resolved. Monitor volume status. Renal stone protocol CT obtained due to some persistence of microscopic hematuria. No obstruction noted. (7) Hyponatremia: Resolved (8) Hyperkalemia: Resolved (9) Wound, open, leg: (10) PAD (peripheral artery disease): (11) Hypertension: (12) Warfarin anticoagulation: (13) Carotid disease, bilateral: (14) COPD (chronic obstructive pulmonary disease): (15) CHF exacerbation: (16) Peripheral neuropathy: Plan Possible UTI: Requested with lab to send for identification of yeast. Possible complicated/fungal UTI with yeast with 60-70 CFU noted in urine. Follow-up culture. Continue Diflucan dose to 200 mg daily. Diarrhea: Requested C. difficile. Hematuria: Most likely traumatic in setting of supratherapeutic INR. Discussed with case management. Attestations Medical Necessity Statement*: Continue admission for assessment management of severe cellulitis, possibly complicated/fungal UTI. Diagnoses Cellulitis L03.90 Respiratory failure with hypoxia J96.91 Atrial fibrillation with RVR I48.91 CHF (congestive heart failure), NYHA class III I50.33 Congestive heart failure chronicity: acute on chronic Congestive heart failure type: diastolic Supratherapeutic INR R79.1 KATHI (acute kidney injury) N17.9 Hyponatremia E87.1 Hyperkalemia E87.5 Wound, open, leg S81.809A PAD (peripheral artery disease) I73.9 Hypertension I10 Warfarin anticoagulation Z79.01 Carotid disease, bilateral I77.9 COPD (chronic obstructive pulmonary disease) J44.9 CHF exacerbation I50.9 Peripheral neuropathy G62.9
--- NOTE | 2023-02-08 14:15 | P.PN_ITS ---
Subjective Subjective: Clinically somwhat improving Currently on IV vancomycin and Cefepime, oral fluconazole Sitting out of bed to chair-And walked the moreno way yesterday with the help of physical therapy Currently still requiring 3 L supplemental oxygen on Bumex last 24 hours-yesterday 1L positive balance WBC count slightly improved 16K Hypokalemia supplemented Medications: Reviewed: Yes Vitals/I&O/Wt Last Vital Signs Temp 98.0 F 02/08/23 11:58 Pulse 77 02/08/23 13:41 Resp 20 H 02/08/23 13:41 BP 104/53 02/08/23 11:58 Pulse Ox 95 02/08/23 13:41 O2 Del Method Nasal Cannula 02/08/23 13:41 O2 Flow Rate 3 02/08/23 13:41 FiO2 3 02/08/23 07:37 02/07/23 02/08/23 02/08/23 22:59 06:59 14:59 Intake Total 1220 / 1220 550 / 1770 Output Total 650 / 650 100 / 750 Balance 570 / 570 450 / 1020 Weight last 48 hrs Weight 282 lb Weight 204 lb 9.6 oz Physical Exam Narrative: General: alert, NAD HEENT: conj clear, EOMI, PERRL, dry mucous membranes Neck: supple, no meningismus Heme: no cervical LAP Respiratory: Inspection: No visible deformity of the chest wall Palpation: Trachea is mildly deviated to the right, bilateral symmetric expansion Percussion: Bilateral tympanic percussion note both anterior and posteriorly Auscultation:There are minimal Bilateral bibasilar crackles Cardiovascular: rrr, nl s1s2, no mrg Abdomen: soft, nt, nd, no r/g, bs+ Extremities: pulses +, no edema, no c/c : no CVA tenderness Skin: Diffuse blanching rash on posterior thighs as well as perineum MSK: no back or neck pain Neurologic: grossly intact Urinary Catheter Management: Monsalve: Cath Placed During This Visit: yes Reason for Continuing Indwelling Catheter: Acute Urinary Retention or Obstruction Urinary Catheter Date of Insertion: 01/25/23 Urinary Catheter Time of Insertion: 15:00 Data 02/08/23 01:39 02/08/23 01:39 Other Labs: Radiology Impressions Chest CT 01/28/23 11:24 IMPRESSION: 1. New mild pulmonary edema and possible pneumonitis. 2. Small bilateral pleural effusions, RIGHT greater than LEFT. 3. Compressive atelectasis at the lung bases. 4. Cardiomegaly. 5. Atherosclerosis thoracic and suprarenal abdominal aorta. Modified Barium Swallow 01/30/23 09:06 IMPRESSION: Modified barium swallow as above. Chest X-Ray 02/05/23 06:00 IMPRESSION: 1. Continued mild pulmonary edema. 2. Small but increasing RIGHT pleural effusion. Small but improving LEFT pleural effusion. Abdomen/Pelvis CT 02/05/23 08:28 IMPRESSION: 1. No obstructing renal or ureteral calculi. No hydronephrosis in either kidney. 2. Bilateral renal cortical scarring with renal cysts. 3. Small RIGHT greater than LEFT pleural effusions. 4. Mild hepatomegaly. 5. Small esophageal hiatal hernia. 6. Chronic compression fractures with kyphoplasty/vertebroplasty changes described above. 7. Monsalve catheter Laboratory Results WBC 16.7 10^3/uL (4.0-10.0) H 02/08/23 01:39 Corrected WBC Cancelled 01/27/23 04:11 RBC 3.07 10^6/uL (4.1-5.3) L 02/08/23 01:39 Hgb 8.2 g/dL (11.5-15.3) L 02/08/23 01:39 Hct 27.2 % (37.0-47.0) L 02/08/23 01:39 MCV 88.6 fl (81-99) 02/08/23 01:39 MCH 26.7 pg (28.0-34.0) L 02/08/23 01:39 MCHC 30.1 g/dL (30.0-36.0) 02/08/23 01:39 RDW 15.9 % (12.1-15.1) H 02/08/23 01:39 Plt Count 269 10^3/cmm (130-400) 02/08/23 01:39 MPV 11.4 fL (7.4-10.4) H 02/08/23 01:39 Gran % Cancelled 01/27/23 04:11 Neut % (Auto) 82.9 % 02/08/23 01:39 Lymph % (Auto) 5.4 % 02/08/23 01:39 [place] % (Auto) 7.4 % 02/08/23 01:39 Eos % (Auto) 3.1 % 02/08/23 01:39 Baso % (Auto) 0.7 % 02/08/23 01:39 Neut # (Auto) 13.82 10^3/uL (1.8-7.7) H 02/08/23 01:39 Lymph # (Auto) 0.9 10^3/uL (0.8-4.8) 02/08/23 01:39 [place] # (Auto) 1.2 10^3/uL (0.2-0.9) H 02/08/23 01:39 Eos # (Auto) 0.5 10^3/uL (0.0-0.8) 02/08/23 01:39 Baso # (Auto) 0.1 10^3/uL (0.0-0.1) 02/08/23 01:39 Absolute Gran (auto) Cancelled 01/27/23 04:11 Nucleated RBC % (auto) 0 % 02/08/23 01:39 Nucleated RBCs # 0.0 /100WBC 02/08/23 01:39 PT 39.10 SECONDS (12.1-14.9) H 02/08/23 01:39 INR 3.82 (0.8-1.2) H 02/08/23 01:39 Specimen Type Arterial 02/01/23 08:02 Sample Site Radial, right 02/01/23 08:02 ABG pH 7.51 (7.35-7.45) H 02/01/23 08:02 ABG pCO2 59.2 mmHg (35-45) H 02/01/23 08:02 ABG pO2 115.0 mmHg (80.0-100.0) H 02/01/23 08:02 ABG HCO3 46.7 mmol/L (22-26) H 02/01/23 08:02 ABG O2 Saturation 99.7 02/01/23 08:02 ABG Base Excess 20.8 mmol/L (-2.0-2.0) H 02/01/23 08:02 Joe Test Pos 02/01/23 08:02 A-a O2 Gradient 44.8 mmHg (5-10) H 02/01/23 08:02 Hematocrit 31.5 % (37-47) L 02/01/23 08:02 Hgb O2 Saturation 97.7 % (95-100) 02/01/23 08:02 Carboxyhemoglobin 1.5 %THgb (0.4-20.1) 02/01/23 08:02 Methemoglobin 0.4 % (0.4-1.5) 02/01/23 08:02 Total Hemoglobin 10.3 g/dL (12-16) L 02/01/23 08:02 Sodium 136.0 mmol/L (131-143) 02/01/23 08:02 Potassium 2.8 mmol/L (3.5-5.0) L 02/01/23 08:02 Glucose 104.0 mg/dL (70-115) 02/01/23 08:02 Ionized Calcium 1.1 mmol/L (1.1-1.4) 02/01/23 08:02 O2 Delivery Device Nc 02/01/23 08:02 O2 Liters/Min 40.0 % 02/01/23 08:02 FiO2 75.0 % 02/01/23 08:02 Electrocardiographic Technician ID [place] 02/01/23 08:02 Sodium 136 mmol/L (136-145) 02/08/23 01:39 Potassium 3.1 mmol/L (3.5-5.1) L 02/08/23 01:39 Chloride 96 mmol/L (98-107) L 02/08/23 01:39 Carbon Dioxide 28 mmol/L (22-29) 02/08/23 01:39 Anion Gap 15.1 (5-19) 02/08/23 01:39 BUN 60 mg/dL (8-23) H 02/08/23 01:39 Creatinine 1.4 mg/dL (0.5-0.9) H 02/08/23 01:39 GFR Calculation Not Reportable 02/08/23 01:39 Glucose 88 mg/dL (65-115) 02/08/23 01:39 Calculated Osmolality 298 mOsm/kg (285-295) H 02/08/23 01:39 Lactic Acid 1.5 mmol/L (0.5-2.2) 01/25/23 15:40 Calcium 8.5 mg/dL (8.5-10.5) 02/08/23 01:39 Phosphorus 5.6 mg/dL (2.5-4.5) H 01/26/23 03:10 Magnesium 3.0 mg/dL (1.7-2.3) H 02/05/23 16:30 Total Bilirubin 1.2 mg/dL (0.15-1.2) 02/07/23 02:35 AST 22 U/L (0-32) 02/07/23 02:35 ALT 15 U/L (0-33) 02/07/23 02:35 Alkaline Phosphatase 99 U/L (35-105) 02/07/23 02:35 Troponin T Baseline 16 ng/L (0-10) H 01/25/23 10:08 Troponin T 120 Minute 14.66 ng/L (0-10) H 01/25/23 12:00 Delta Troponin T -1.34 ABS# (0-10) L 01/25/23 12:00 Troponin T Hi Sens 6Hr 13.84 ng/L (0-10) H 01/25/23 15:45 Troponin T Hi Sens 6Hr Delta -2.16 ng/L (0-12) L 01/25/23 15:45 C-Reactive Protein 324.0 mg/L (0.0-4.9) H 01/25/23 12:00 NT-Pro-B Natriuret Pep 2856 pg/mL (0-125) H 01/25/23 12:00 Total Protein 6.5 g/dL (6.6-8.7) L 02/07/23 02:35 Albumin 3.5 g/dL (3.5-5.2) 02/07/23 02:35 Globulin 3.0 g/dL (1.3-4.6) 02/07/23 02:35 Procalcitonin 0.15 ng/mL (0-0.5) 02/05/23 03:44 Urine Color Straw (Yellow) 02/05/23 11:46 Urine Appearance Hazy (CLEAR) A 02/05/23 11:46 Urine pH 8 (5-7) H 02/05/23 11:46 Ur Specific [place] 1.015 (1.005-1.030) 02/05/23 11:46 Urine Protein Neg (Negative) 02/05/23 11:46 Urine Glucose (UA) Norm (Normal) 02/05/23 11:46 Urine Ketones Negative (Negative) 02/05/23 11:46 Urine Blood 3+ (Negative) H 02/05/23 11:46 Urine Nitrate Negative (Negative) 02/05/23 11:46 Urine Bilirubin Neg (Negative) 02/05/23 11:46 Prot Sulfosalicylic Acd Negative (Negative) 02/05/23 11:46 Urine Urobilinogen Norm mg/dL (Negative) 02/05/23 11:46 Ur Leukocyte Esterase Negative (Negative) 02/05/23 11:46 Urine RBC 40-50 /hpf (0-2) H 02/05/23 11:46 Urine WBC 0-4 /hpf (0-5) H 02/05/23 11:46 Ur Eosinophil Smear 0 (0-0) 01/28/23 15:00 Ur Squamous Epith Cells Rare /hpf (0-5) 02/05/23 11:46 Uric Acid Crystals 10-15 /hpf H 01/29/23 11:15 Amorphous Sediment Not Reportable 02/05/23 11:46 Urine Bacteria Trace /hpf (NONE) 02/05/23 11:46 Hyaline Casts 0-4 /lpf H 01/29/23 11:15 Urine Mucus Trace /hpf 02/05/23 11:46 Urine Yeast 1+ /hpf H 02/05/23 11:46 Urine Eosinophils No eosinophils seen 01/28/23 15:00 Ur Random Sodium 38 mmol/L 01/28/23 15:00 Ur Random Potassium 32 mmol/L 01/28/23 15:00 Ur Random Chloride 61 mmol/L 01/28/23 15:00 Urine Creatinine 40 mg/dL (28-217) 01/28/23 15:00 Nasal Influ A H1 2008 PCR Not detected (NOT DETECT) 01/29/23 11:20 Vancomycin Trough 16.8 ug/mL (10-15) H 02/07/23 17:05 Digoxin 0.7 ng/mL (0.6-1.2) 02/02/23 02:58 Adenovirus (PCR) Not detected (NOT DETECT) 01/29/23 11:20 C. pneumoniae DNA (PCR) Not detected (NOT DETECT) 01/29/23 11:20 Coronavirus 229E (PCR) Not detected (NOT DETECT) 01/29/23 11:20 Human Metapneumovir PCR Not detected (NOT DETECT) 01/29/23 11:20 Influenza A (H1) PCR Not detected (NOT DETECT) 01/29/23 11:20 Influenza A (H3) PCR Not detected (NOT DETECT) 01/29/23 11:20 Influenza Type A (PCR) Not detected (NOT DETECT) 01/29/23 11:20 Influenza Type B (PCR) Not detected (NOT DETECT) 01/29/23 11:20 M. pneumoniae (PCR) Not detected (NOT DETECT) 01/29/23 11:20 Parainfluenza 1 (PCR) Not detected (NOT DETECT) 01/29/23 11:20 Parainfluenza 2 (PCR) Not detected (NOT DETECT) 01/29/23 11:20 Parainfluenza 3 (PCR) Not detected (NOT DETECT) 01/29/23 11:20 Parainfluenza 4 (PCR) Not detected (NOT DETECT) 01/29/23 11:20 RSV Type A (PCR) Not detected (NOT DETECT) 01/29/23 11:20 RSV Type B (PCR) Not detected (NOT DETECT) 01/29/23 11:20 Entero/Rhino (PCR) Not detected (NOT DETECT) 01/29/23 11:20 SARS-CoV-2 (PCR) Not detected (NOT DETECT) 01/29/23 11:20 Micro: Microbiology 02/05/23 11:46 Urine Culture - Preliminary Urine,Clean Catch Yeast A&P Assessment and plan (1) Respiratory failure with hypoxia: Currently requiring 2-3 L supplemental oxygen and maintaining saturation > 88% Patient had underlying CHF and currently in exacerbation-triggered by A-fib RVR Echocardiogram 01/26/2023 showed normal LV size systolic function with EF 60%. Currently rate is controlled. Currently on amiodarone 200 Mg p.o. twice daily. Metoprolol 25 Mg p.o. twice daily Her input output charting showed she is net 960 L over last 24 hours-however charting of her oral intake is questionable; overall net negative -3.5 L CMP showed bicarb 28, K 3.1 supplemented, her BUN/creatinine stable slightly worsened we will taper down Bumex to 1 Mg daily We will monitor electrolytes, input output, renal functions -Encourage patient to work with physical therapy and sit out of bed to chair (2) CHF exacerbation: (3) CHF (congestive heart failure), NYHA class III: Qualifiers: Congestive heart failure chronicity: acute on chronic Congestive heart failure type: diastolic Qualified Code(s): I50.33 - Acute on chronic diastolic (congestive) heart failure (4) Diuretic-induced hypokalemia: Potassium 3.2 supplemented Continue to monitor and supplement accordingly (5) Leukocytosis: Persistent leukocytosis-no fevers-could be a component of dehydration as well - improving However there is significant rash in perineal area and back of thighs -there is some skin excoriation Currently on IV vancomycin and cefepime; oral fluconazole (6) Candidiasis: there is significant rash in perineal area and back of thighs -there is some skin excoriation Started on oral flucanazole 100 Mg daily Attestations Medical Necessity Statement*: Currently And IV antibiotics Coding Level of Care Code 47377 Diagnoses Respiratory failure with hypoxia J96.91 CHF exacerbation I50.9 CHF (congestive heart failure), NYHA class III I50.33 Congestive heart failure chronicity: acute on chronic Congestive heart failure type: diastolic Diuretic-induced hypokalemia E87.6; T50.2X5A Leukocytosis D72.829 Candidiasis B37.9 Time Spent (min) 43
[2023-02-08] MEDS: atorvastatin 40 mg Tablet 80 MG PO (17:02)
[2023-02-08] MEDS: vancomycin 1,000 MG in sodium chloride 0.9% 250 ML 250 MG IV (18:35)
[2023-02-08] MEDS: ropinirole 0.25 mg Tablet 0.5 MG PO (20:05)
[2023-02-09] VITALS (17 sets, daily range): BP systolic 97–110; BP diastolic 58–67; PULSE 76–105; RESP 20–28; TEMP 36.4–37.1; O2SAT 92–99
[2023-02-09] MEDS: levalbuterol 0.63 mg/3 mL Neb INHALATION ×4 (02:03→20:50)
[2023-02-09] MEDS: ipratropium 0.5 mg/2.5 mL Neb INHALATION ×4 (02:03→20:50)
[2023-02-09 03:16] LABS: Basophils # 0.1 10^3/uL (0.0-0.1); Basophils % 0.6 %; Eosinophils # 0.5 10^3/uL (0.0-0.8); Hemoglobin 8.5 g/dL (11.5-15.3); Lymphocytes # 0.8 10^3/uL (0.8-4.8); Lymphocytes % 5.1 %; Mean Corpuscular HGB Conc 31.5 g/dL (30.0-36.0); Mean Corpuscular Volume 88.8 fl (81-99); Mean Platelet Volume 10.6 fL (7.4-10.4); Monocytes # 1.2 10^3/uL (0.2-0.9); Monocytes % 7.8 %; Neutrophils # 12.45 10^3/uL (1.8-7.7); Neutrophils % 82.6 %; Nucleated Red Blood Cells % 0 %; Platelet Count 256 10^3/cmm (130-400); Red Blood Count 3.04 10^6/uL (4.1-5.3); Red Cell Distribution Width 16.2 % (12.1-15.1); White Blood Count 15.1 10^3/uL (4.0-10.0)
[2023-02-09 03:31] LABS: INR 4.02 (0.8-1.2)
[2023-02-09 03:40] LABS: Anion Gap 13.9 (5-19); Blood Urea Nitrogen 66 mg/dL (8-23); Calcium 8.7 mg/dL (8.5-10.5); Carbon Dioxide 27 mmol/L (22-29); Chloride 95 mmol/L (98-107); Glucose 97 mg/dL (65-115); Osmolality Calculated 293 mOsm/kg (285-295); Potassium 3.9 mmol/L (3.5-5.1); Sodium 132 mmol/L (136-145)
[2023-02-09] MEDS: cefepime 2,000 MG in sodium chloride 0.9% (plus) 50 ML 100 MG IV ×2 (04:04→16:20)
[2023-02-09] MEDS: potassium chloride ER 20 mEq Tablet 40 MEQ PO ×2 (09:10→17:29)
[2023-02-09] MEDS: bumetanide 1 mg Tablet PO (09:11)
[2023-02-09] MEDS: amiodarone 200 mg Tablet PO ×2 (09:11→17:27)
[2023-02-09] MEDS: aspirin 81 mg Chew Tablet PO (09:11)
[2023-02-09] MEDS: fluconazole 100 mg Tablet 200 MG PO (09:11)
[2023-02-09] MEDS: pantoprazole DR 40 mg Tablet PO (09:11)
[2023-02-09] MEDS: metoprolol tartrate 25 mg Tablet PO ×2 (09:16→20:59)
[2023-02-09] MEDS: acetaminophen 325 mg Tablet 650 MG PO (09:23)
[2023-02-09] MEDS: budesonide 0.5 mg/2 mL Neb INHALATION ×2 (09:26→20:50)
--- NOTE | 2023-02-09 09:42 | PC.SOCIAL ---
IMM update IMM updated with patient. Verbalized an understanding. Copy PG 2 provided. Initialled, dated, timed, and placed in chart.
--- NOTE | 2023-02-09 11:17 | PC.NURSE ---
Patient uses bedside commode for bowel movements. Nurse at bedside to assist her to getting to bedside commode but she needs continual reinforcement that she can do this, no matter how slow she goes. Nurse more than willing to help but would like to see her get some of her strength back.
[2023-02-09] MEDS: atorvastatin 40 mg Tablet 80 MG PO (17:27)
[2023-02-09] MEDS: nystatin cream 30 gm 1 APPLIC TOPICAL (17:31)
--- NOTE | 2023-02-09 18:34 | PM.PN ---
Subjective Subjective: She had a difficult night. Could not sleep very well. 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 This morning was started on BiPAP support. Would like to try to get a nap. Medications: Reviewed: Yes Vitals/I&O/Wt Last Vital Signs Temp 98.7 F 02/09/23 11:36 Pulse 96 02/09/23 16:09 Resp 26 H 02/09/23 16:09 BP 97/58 02/09/23 16:09 Pulse Ox 94 02/09/23 16:09 O2 Del Method Nasal Cannula 02/09/23 14:17 O2 Flow Rate 3 02/09/23 14:17 FiO2 40 02/09/23 11:26 02/09/23 02/09/23 02/09/23 06:59 14:59 22:59 Intake Total 150 / 1250 640 / 640 Output Total 150 / 725 350 / 350 Balance 0 / 525 640 / 640 -350 / 290 Weight last 48 hrs Weight 92.079 kg Weight 127.913 kg Physical Exam Narrative: Sitting up in bed. Const: COMMON NORMALS: patient oriented x3 and alert GENERAL APPEARANCE: cooperative ORIENTATION/CONSCIOUSNESS: Yes awake HENMT: COMMON NORMALS: oropharynx normal Neck/C-Spine: COMMON NORMALS: no JVD Resp: COMMON NORMALS: normal respiratory effort AUSCULTATION: diminished lung sounds Cardio: COMMON NORMALS: no JVD, regular rhythm, S1 normal heart sound present, S2 normal heart sound present and No murmurs present (Cardio) RHYTHM: regular rhythm HEART SOUNDS: S1 normal heart sound present and S2 normal heart sound present GI: COMMON NORMALS: Normal to inspection, nondistended, normoactive bowel sounds present, Soft to palpation and non-tender PALPATION: Yes Soft to palpation Extremity: COMMON NORMALS: no joint enlargement and no pedal edema NARRATIVE EXTREMITY EXAM: LE no erythema but chronic venous stasis, purplish discoloration bilateral lower extremities on the shins, perfused appearing. Ankles. Dry scaly skin. Healing ulceration on anteromedial right lower leg, small ulceration 1 x 2 cm, shallow without tunneling or undermining, small meta slough at the base. Neuro: COMMON NORMALS: patient oriented x3 and moves all extremities SENSORIUM/ORIENTATION: Yes alert Skin: COMMON NORMALS: no rashes or lesions noted GENERAL SKIN EXAM: no rashes or lesions noted OTHER: Erythema of skin bilateral groins, buttocks, proximal posterior thighs. With maceration on posterior buttocks, moisture and shear stress. 1 cm spot of eschar on lateral second left toe, she states has had that spot for a while. Does not appear like necrosis. Urinary Catheter Management: Monsalve: Cath Placed During This Visit: yes Reason for Continuing Indwelling Catheter: Accurate Measurement of Urinary Output in Critically Ill Patients Urinary Catheter Date of Insertion: 01/25/23 Urinary Catheter Time of Insertion: 15:00 Data 02/09/23 02:58 02/09/23 02:58 Micro: Microbiology 02/05/23 11:46 Urine Culture - Final Urine,Clean Catch Maria Luisa tropicalis A&P Assessment and plan (1) Cellulitis: Continue IV antibiotics for now due to area of cellulitis. Slow improvement. Noted some improvement in leukocytosis down to 15.1. Add zinc oxide. Persistent extensive cellulitis, maceration, with suspected fungal and superimposed bacterial infection. Continue Diflucan, dose increased to 200 mg daily. Continue topical nystatin. Continue IV antibiotic coverage with cefepime, vancomycin. Persistence of her cellulitis. Continue IV antibiotics as well as oral and topical antifungal at this time. Leukocytosis without further worsening, but not much improvement down to 17.3. Predominantly neutrophilic 14.55. Urine culture now growing yeast as well. Continue Diflucan. Follow-up urine culture with no Maria Luisa tropicalis. Discussed with her continued hospitalization she is agreeable to stay to continue for IV antibiotic treatment, antifungals. Discharge is delayed. Discussed with case management. Severe cellulitis bilateral groins, buttocks and proximal posterior thighs, maceration, some whitish discharge at the surface in the groins. Suspected fungal infection with superimposed bacterial cellulitis. Continue IV antibiotics currently, continue antifungal. Discussed with her reassessing again in the morning, if continues to improve, consideration of transition to oral NT microbial agents with discharge to SNF. Discussed w case management. Requested C. difficile. Lower extremities do not appear to have active cellulitis beyond chronic changes, ulceration on anterior medial right lower leg. 1cm spot of eschar on lateral second left toe, she states has had that spot for a while. Keep monitoring. Does not appear like necrosis. (2) Respiratory failure with hypoxia: Transient worsening this morning, had to go on BiPAP support for short time. Subsequently weaned off back to nasal cannula 3 L. Noted 340 mL positive balance, although still on fluid restriction, Bumex 1 mg p.o. daily, with some worsening renal function, BUN up to 66, creatinine 1.5. Cumulative is noted -1.8 L. Continue diuretic unchanged for now. Continue BiPAP nightly and as needed. (3) Atrial fibrillation with RVR: Heart rate now remains controlled, continue amiodarone, metoprolol. 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 Slight worsening of breathing today requiring temporary BiPAP support, at the same time does not appear volume overloaded elsewhere, with some worsening renal function. 340 mL positive balance last 24 hours. Continue 1 mg daily Bumex for now. Reassess volume status, renal function. Appears may be reaching euvolemia. Qualifiers: Congestive heart failure chronicity: acute on chronic Congestive heart failure type: diastolic Qualified Code(s): I50.33 - Acute on chronic diastolic (congestive) heart failure (5) Supratherapeutic INR: Worsened INR up to 4.02. Continue to hold warfarin. Check liver panel. Follow-up INR. No further bleeding, resume warfarin 3mg. (6) KATHI (acute kidney injury): Creatinine noted with improvement down to 1.5 ,BUN 66 Although still slightly positive balance last 24 hours. Slight worsening breathing overnight. We will continue for now with mild milligram Bumex daily only. Reassess renal function, volume status. Off Diamox as CHF appears likely resolved. Renal stone protocol CT obtained due to some persistence of microscopic hematuria. No obstruction noted. (7) Hyponatremia: Resolved (8) Hyperkalemia: Resolved (9) Wound, open, leg: (10) PAD (peripheral artery disease): (11) Hypertension: (12) Warfarin anticoagulation: (13) Carotid disease, bilateral: (14) COPD (chronic obstructive pulmonary disease): (15) CHF exacerbation: (16) Peripheral neuropathy: Plan Maria Luisa UTI: Urine culture noted with Maria Luisa tropicalis. Continue Diflucan. Diarrhea: Requested C. difficile. Hematuria: Most likely traumatic in setting of supratherapeutic INR. Discussed with case management. Attestations Medical Necessity Statement*: Continue treatment of severe cellulitis, IV antibiotics, antifungal, topical antimicrobials, candidal UTI, respiratory failure, CHF in setting of KATHI. Coding Level of Care Code Acute Code for Chg Fwd Diagnoses Cellulitis L03.90 Respiratory failure with hypoxia J96.91 Atrial fibrillation with RVR I48.91 CHF (congestive heart failure), NYHA class III I50.33 Congestive heart failure chronicity: acute on chronic Congestive heart failure type: diastolic Supratherapeutic INR R79.1 KATHI (acute kidney injury) N17.9 Hyponatremia E87.1 Hyperkalemia E87.5 Wound, open, leg S81.809A PAD (peripheral artery disease) I73.9 Hypertension I10 Warfarin anticoagulation Z79.01 Carotid disease, bilateral I77.9 COPD (chronic obstructive pulmonary disease) J44.9 CHF exacerbation I50.9 Peripheral neuropathy G62.9
[2023-02-09] MEDS: vancomycin 1,000 MG in sodium chloride 0.9% 250 ML 250 MG IV (19:26)
[2023-02-09] MEDS: ropinirole 0.25 mg Tablet 0.5 MG PO (20:59)
[2023-02-10] VITALS (17 sets, daily range): BP systolic 95–124; BP diastolic 53–77; PULSE 76–101; RESP 19–27; TEMP 36.4–36.9; O2SAT 90–98
[2023-02-10 02:46] LABS: Basophils # 0.1 10^3/uL (0.0-0.1); Basophils % 0.7 %; Eosinophils # 0.6 10^3/uL (0.0-0.8); Eosinophils % 4.2 %; Hematocrit 26.5 % (37.0-47.0); Hemoglobin 8.2 g/dL (11.5-15.3); Lymphocytes % 7.2 %; Mean Corpuscular HGB Conc 30.9 g/dL (30.0-36.0); Mean Corpuscular Hemoglobin 27.6 pg (28.0-34.0); Mean Corpuscular Volume 89.2 fl (81-99); Mean Platelet Volume 11.5 fL (7.4-10.4); Monocytes % 7.5 %; Neutrophils # 10.69 10^3/uL (1.8-7.7); Neutrophils % 79.4 %; Nucleated Red Blood Cells % 0 %; Platelet Count 265 10^3/cmm (130-400); Red Blood Count 2.97 10^6/uL (4.1-5.3); Red Cell Distribution Width 16.4 % (12.1-15.1); White Blood Count 13.5 10^3/uL (4.0-10.0)
[2023-02-10] MEDS: levalbuterol 0.63 mg/3 mL Neb INHALATION ×4 (02:46→20:18)
[2023-02-10] MEDS: ipratropium 0.5 mg/2.5 mL Neb INHALATION ×4 (02:46→20:18)
[2023-02-10 02:59] LABS: INR 4.36 (0.8-1.2)
[2023-02-10] MEDS: ondansetron 2 mg/ML SDV 2 mL 4 MG IVP (03:00)
[2023-02-10 03:07] LABS: Alanine Aminotransferase 15 U/L (0-33); Albumin Level 3.3 g/dL (3.5-5.2); Alkaline Phosphatase 134 U/L (35-105); Aspartate Amino Transferase 21 U/L (0-32); Globulin 3.1 g/dL (1.3-4.6); Total Bilirubin 0.9 mg/dL (0.15-1.2); Total Protein 6.4 g/dL (6.6-8.7)
[2023-02-10 03:08] LABS: Anion Gap 15.7 (5-19); Blood Urea Nitrogen 65 mg/dL (8-23); Calcium 8.7 mg/dL (8.5-10.5); Carbon Dioxide 24 mmol/L (22-29); Chloride 99 mmol/L (98-107); Glucose 87 mg/dL (65-115); Osmolality Calculated 296 mOsm/kg (285-295); Potassium 4.7 mmol/L (3.5-5.1); Sodium 134 mmol/L (136-145)
[2023-02-10] MEDS: cefepime 2,000 MG in sodium chloride 0.9% (plus) 50 ML 100 MG IV ×2 (04:13→18:10)
[2023-02-10] MEDS: bumetanide 1 mg Tablet PO (08:44)
[2023-02-10] MEDS: fluconazole 100 mg Tablet 200 MG PO (08:44)
[2023-02-10] MEDS: amiodarone 200 mg Tablet PO ×2 (08:44→18:04)
[2023-02-10] MEDS: metoprolol tartrate 25 mg Tablet PO ×2 (08:44→20:33)
[2023-02-10] MEDS: aspirin 81 mg Chew Tablet PO (08:46)
[2023-02-10] MEDS: potassium chloride ER 20 mEq Tablet 40 MEQ PO ×2 (08:46→18:04)
[2023-02-10] MEDS: pantoprazole DR 40 mg Tablet PO (08:46)
[2023-02-10] MEDS: budesonide 0.5 mg/2 mL Neb INHALATION ×2 (09:11→20:18)
--- NOTE | 2023-02-10 17:39 | PC.PHAR ---
INR increased again today to 4.36 from 4.02. Discussed with HALOL, patient has not received dose since 02/07 (INR on date = 2.83). Decision to give small dose 2.5 mg Vit K PO.
[2023-02-10] MEDS: phytonadione (ADULT) 10 mg/mL Ampule 1 mL 2.5 MG PO (18:03)
[2023-02-10] MEDS: atorvastatin 40 mg Tablet 80 MG PO (18:04)
[2023-02-10] MEDS: nystatin cream 30 gm 1 APPLIC TOPICAL (18:27)
[2023-02-10 19:09] LABS: Vancomycin Trough 22.2 ug/mL (10-15)
--- NOTE | 2023-02-10 19:51 | P.PN_ITS ---
Subjective Subjective: She feels she is overall slowly improving. Her bottom has still been raw, but this is gradually getting better. No worsening in her breathing. No chest pain. No bleeding. Discussed with her regarding worsening INR despite holding warfarin, consideration of placement of small dose of vitamin K. Medications: Reviewed: Yes Vitals/I&O/Wt Last Vital Signs Temp 97.9 F 02/10/23 19:14 Pulse 87 02/10/23 19:14 Resp 19 H 02/10/23 19:14 BP 112/77 02/10/23 19:14 Pulse Ox 96 02/10/23 19:14 O2 Del Method Nasal Cannula 02/10/23 19:14 O2 Flow Rate 3 02/10/23 16:00 FiO2 40 02/09/23 21:04 02/10/23 02/10/23 02/10/23 06:59 14:59 22:59 Intake Total 600 / 1740 118 / 118 550 / 668 Output Total 250 / 600 400 / 400 Balance 350 / 1140 118 / 118 150 / 268 Weight last 48 hrs Weight 91.796 kg Weight 92.079 kg Physical Exam Narrative: Sitting up in bed. Const: COMMON NORMALS: patient oriented x3 and alert GENERAL APPEARANCE: cooperative ORIENTATION/CONSCIOUSNESS: Yes awake HENMT: COMMON NORMALS: oropharynx normal Neck/C-Spine: COMMON NORMALS: no JVD Resp: COMMON NORMALS: normal respiratory effort and clear to auscultation bilaterally AUSCULTATION: clear to auscultation bilaterally and diminished lung sounds Cardio: COMMON NORMALS: no JVD, regular rhythm, S1 normal heart sound present, S2 normal heart sound present and No murmurs present (Cardio) RHYTHM: regular rhythm HEART SOUNDS: S1 normal heart sound present and S2 normal heart sound present GI: COMMON NORMALS: Normal to inspection, nondistended, normoactive bowel sounds present, Soft to palpation and non-tender PALPATION: Yes Soft to palpation Extremity: COMMON NORMALS: no joint enlargement and no pedal edema NARRATIVE EXTREMITY EXAM: LE no erythema but chronic venous stasis, purplish discoloration bilateral lower extremities on the shins, perfused appearing. Ankles. Dry scaly skin. Healing ulceration on anteromedial right lower leg, small ulceration 1 x 2 cm, shallow without tunneling or undermining, small meta slough at the base. Neuro: COMMON NORMALS: patient oriented x3 and moves all extremities SENSORIUM/ORIENTATION: Yes alert Skin: COMMON NORMALS: no rashes or lesions noted GENERAL SKIN EXAM: no rashes or lesions noted OTHER: Now decreasing erythema of skin bilateral buttocks, groins, proximal posterior thighs. With maceration on posterior buttocks, moisture and shear stress. 1 cm spot of eschar on lateral second left toe, she states has had that spot for a while. Does not appear like necrosis. Urinary Catheter Management: Monsalve: Cath Placed During This Visit: yes Reason for Continuing Indwelling Catheter: Accurate Measurement of Urinary Output in Critically Ill Patients Urinary Catheter Date of Insertion: 01/25/23 Urinary Catheter Time of Insertion: 15:00 Data 02/10/23 02:10 02/10/23 02:10 Micro: Microbiology 02/09/23 14:35 C.difficile Toxin B Gene (PCR) - Final Stool Routine Collection 02/05/23 11:46 Urine Culture - Final Urine,Clean Catch Maria Luisa tropicalis A&P Assessment and plan (1) Cellulitis: Continue IV antibiotics for now due to area of cellulitis. Vanco trough noted 22.2. Cellulitis now finally appears to be improving. Noted leukocytosis decreasing down to 13.5. Continue zinc oxide. Persistent extensive cellulitis, maceration, with suspected fungal and superimposed bacterial infection. Continue Diflucan, dose increased to 200 mg daily. Continue topical nystatin. Continue IV antibiotic coverage with cefepime, vancomycin. Urine culture now growing yeast as well. Continue Diflucan. Follow-up urine culture with Mraia Luisa tropicalis. Continue treatment of cellulitis. Now with possibly Diflucan INR is rising as well up to 4.36 despite holding warfarin last several days. Discussed with pharmacy, will give 2.5 mg vitamin K x1, continue to hold warfarin, recheck INR. Otherwise if continues to improve, and no further issues, may be able to discharge to [place] in 1-2 days time. Severe cellulitis bilateral groins, buttocks and proximal posterior thighs, maceration, some whitish discharge at the surface in the groins. Suspected fungal infection with superimposed bacterial cellulitis. Continue IV antibiotics currently, continue antifungal. Discussed with her reassessing again in the morning, if continues to improve, consideration of transition to oral NT microbial agents with discharge to SNF. Discussed w case management. Lower extremities do not appear to have active cellulitis beyond chronic changes, ulceration on anterior medial right lower leg. 1cm spot of eschar on lateral second left toe, she states has had that spot for a while. Keep monit oring. Does not appear like necrosis. (2) Supratherapeutic INR: INR continues to rise, up to 4.36 despite holding warfarin the last several days. Likely interaction with Diflucan, also on cefepime, amiodarone. Continue to withhold warfarin for now. Discussed with her considering small dose of vitamin K. As per discussion with pharmacy we will go and give her 2.5 mg. Recheck INR. Continue to monitor INR. At risk of bleeding. At risk of thromboembolic disease. Liver panel with mild elevation of alk phos, otherwise unremarkable. No further bleeding, resume warfarin 3mg. (3) Respiratory failure with hypoxia: Today about the same, on 3 L nasal cannula, feels comfortable. Noted still about 1 L negative net balance. Weight appears slightly above dry weight 91.796. We will continue daily Bumex. BUN noted 65. Creatinine 1.5. Reassess kidney function. Continue to monitor VERN. Weights. Continue diuretic unchanged for now. Continue BiPAP nightly and as needed. (4) Atrial fibrillation with RVR: Heart rate now remains controlled, continue amiodarone, metoprolol. 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 Slight worsening of breathing today requiring temporary BiPAP support, at the same time does not appear volume overloaded el sewhere, with some worsening renal function. 340 mL positive balance last 24 hours. Continue 1 mg daily Bumex for now. Reassess volume status, renal function. Appears may be reaching euvolemia. Qualifiers: Congestive heart failure chronicity: acute on chronic Congestive heart failure type: diastolic Qualified Code(s): I50.33 - Acute on chronic diastolic (congestive) heart failure (6) KATHI (acute kidney injury): So far no further worsening. Creatinine noted with improvement down to 1.5 ,BUN 65 Although still slightly positive balance last 24 hours. Continue for now with 1 milligram Bumex daily only. Reassess renal function, volume status. Off Diamox as CHF appears likely resolved. Renal stone protocol CT obtained due to some persistence of microscopic hematuria. No obstruction noted. (7) Hyponatremia: Resolved (8) Hyperkalemia: Resolved (9) Wound, open, leg: (10) PAD (peripheral artery disease): (11) Hypertension: (12) Warfarin anticoagulation: (13) Carotid disease, bilateral: (14) COPD (chronic obstructive pulmonary disease): (15) CHF exacerbation: (16) Peripheral neuropathy: Plan Maria Luisa UTI: Urine culture noted with Maria Luisa tropicalis. Continue Diflucan. Diarrhea: C. difficile PCR noted negative. Hematuria: Most likely traumatic in setting of supratherapeutic INR. Discussed with case management. Attestations Medical Necessity Statement*: Continue treatment of extensive cellulitis with fungal and bacterial superinfection, IV antibiotics, antifungal, topical antimicrobials, candidal UTI, respiratory failure, CHF in setting of KATHI. Diagnoses Cellulitis L03.90 Supratherapeutic INR R79.1 Respiratory failure with hypoxia J96.91 Atrial fibrillation with RVR I48.91 CHF (congestive heart failure), NYHA class III I50.33 Congestive heart failure chronicity: acute on chronic Congestive heart failure type: diastolic KATHI (acute kidney injury) N17.9 Hyponatremia E87.1 Hyperkalemia E87.5 Wound, open, leg S81.809A PAD (peripheral artery disease) I73.9 Hypertension I10 Warfarin anticoagulation Z79.01 Carotid disease, bilateral I77.9 COPD (chronic obstructive pulmonary disease) J44.9 CHF exacerbation I50.9 Peripheral neuropathy G62.9
[2023-02-10] MEDS: ropinirole 0.25 mg Tablet 0.5 MG PO (20:33)
[2023-02-10] MEDS: HYDROcodone-acetaminophen 5-325 mg Tablet 1 TAB PO (20:41)
[2023-02-10] MEDS: vancomycin 750 MG in sodium chloride 0.9% 250 ML 250 MG IV (20:42)
[2023-02-11] VITALS (13 sets, daily range): BP systolic 102–114; BP diastolic 52–78; PULSE 77–102; RESP 16–29; TEMP 36.6–37.2; O2SAT 88–98
[2023-02-11] MEDS: levalbuterol 0.63 mg/3 mL Neb INHALATION ×4 (02:18→20:24)
[2023-02-11] MEDS: ipratropium 0.5 mg/2.5 mL Neb INHALATION ×4 (02:18→20:24)
[2023-02-11] MEDS: cefepime 2,000 MG in sodium chloride 0.9% (plus) 50 ML 100 MG IV (04:38)
[2023-02-11 07:48] LABS: Basophils # 0.1 10^3/uL (0.0-0.1); Eosinophils # 0.6 10^3/uL (0.0-0.8); Eosinophils % 4.2 %; Hematocrit 30.3 % (37.0-47.0); Hemoglobin 8.4 g/dL (11.5-15.3); Lymphocytes # 1.1 10^3/uL (0.8-4.8); Lymphocytes % 8.2 %; Mean Corpuscular HGB Conc 27.7 g/dL (30.0-36.0); Mean Corpuscular Hemoglobin 27.4 pg (28.0-34.0); Mean Corpuscular Volume 98.7 fl (81-99); Mean Platelet Volume 11.2 fL (7.4-10.4); Monocytes % 6.9 %; Neutrophils # 10.83 10^3/uL (1.8-7.7); Neutrophils % 78.5 %; Nucleated Red Blood Cells % 0 %; Platelet Count 257 10^3/cmm (130-400); Red Blood Count 3.07 10^6/uL (4.1-5.3); Red Cell Distribution Width 17.2 % (12.1-15.1); White Blood Count 13.8 10^3/uL (4.0-10.0)
[2023-02-11 08:01] LABS: INR 2.84 (0.8-1.2)
[2023-02-11 08:06] LABS: Alanine Aminotransferase 17 U/L (0-33); Albumin Level 3.1 g/dL (3.5-5.2); Alkaline Phosphatase 147 U/L (35-105); Aspartate Amino Transferase 23 U/L (0-32); Blood Urea Nitrogen 63 mg/dL (8-23); Calcium 8.7 mg/dL (8.5-10.5); Carbon Dioxide 17 mmol/L (22-29); Chloride 100 mmol/L (98-107); Globulin 3.6 g/dL (1.3-4.6); Glucose 93 mg/dL (65-115); Osmolality Calculated 288 mOsm/kg (285-295); Sodium 130 mmol/L (136-145); Total Bilirubin 0.9 mg/dL (0.15-1.2); Total Protein 6.7 g/dL (6.6-8.7)
[2023-02-11] MEDS: budesonide 0.5 mg/2 mL Neb INHALATION ×2 (08:06→20:24)
[2023-02-11 08:16] LABS: Anion Gap 19.5 (5-19)
[2023-02-11 08:18] LABS: Potassium 6.5 mmol/L (3.5-5.1)
--- NOTE | 2023-02-11 08:48 | PC.SOCIAL ---
IMM Updated Updated pt on IMM. No questions voiced. Provided pt a copy. Initialed, dated, & timed copy in chart.
--- NOTE | 2023-02-11 08:59 | PM.PN ---
Subjective Subjective: Hospital course, labs appreciated. Today morning patient seen sitting up in the bed. States she is slightly out of breath but better than before. Denies any nausea vomiting, headache. Heart rate well controlled. Seems to have slight hematuria. Hemoglobin stable. Patient complaining of not having any bowel movements with extensive belching without any vomiting. Blood work shows a stable CBC with hemoglobin of around 8, stable leukocytosis, INR improving to 2.8 after receiving vitamin K orally yesterday, CMP showing stable sodium level but hyperkalemia which has been confirmed with 2 samples Medications: Reviewed: Yes Vitals/I&O/Wt Last Vital Signs Temp 99.0 F 02/11/23 08:00 Pulse 86 02/11/23 08:00 Resp 28 H 02/11/23 08:00 BP 114/71 02/11/23 08:00 Pulse Ox 88 L 02/11/23 08:00 O2 Del Method Nasal Cannula 02/11/23 08:00 O2 Flow Rate 3.5 02/11/23 08:00 FiO2 40 02/11/23 02:21 02/10/23 02/11/23 02/11/23 22:59 06:59 14:59 Intake Total 1640 / 1758 50 / 1808 Output Total 400 / 400 400 / 800 Balance 1240 / 1358 -350 / 1008 Weight last 48 hrs Weight 92.533 kg Weight 91.796 kg Physical Exam Narrative: General: No acute distress, AO x3, NC oxygen supplementation, chronically sick appearing HEENT: PERRLA, pupils bilaterally equal and reactive Chest: Bronchial breath sounds b/l coarse crackles with occasional rhonchi all over lung long CVS: S1-S2 irregularly irregular, soft pansystolic murmur at apex this, no tachycardia, no gallops, no rubs Abdomen: Soft, nontender, no organomegaly, bowel sounds present, morbidly obese Neuro: No focal deficits, no facial deformity, AO x3, power 5/5 in all limbs Urinary Catheter Management: Monsalve: Cath Placed During This Visit: yes Reason for Continuing Indwelling Catheter: Accurate Measurement of Urinary Output in Critically Ill Patients Urinary Catheter Date of Insertion: 01/25/23 Urinary Catheter Time of Insertion: 15:00 Data 02/11/23 07:38 02/11/23 15:55 Micro: Microbiology 02/09/23 14:35 C.difficile Toxin B Gene (PCR) - Final Stool Routine Collection A&P Assessment and plan (1) Hyperkalemia: Potassium up to 6.9. Repeated in check. Asymptomatic. Hold off on any further oral potassium supplements. Patient given D50 with tenets of insulin and calcium gluconate. Potassium still trending on the higher side. Will give Kayexalate every 6 hours. Repeat potassium in evening. (2) Cellulitis: Continue wound care with zinc oxide. Frequent repositioning. Out of bed to chair. Remove Monsalve. MRSA negative. Stop vancomycin. Continue cefepime to finish a 7-day course which would be last day on 02/12. Continue fluconazole for 7-day course with last dose on 02/15. Lower extremities do not appear to have active cellulitis beyond chronic changes, ulceration on anterior medial right lower leg. 1cm spot of eschar on lateral second left toe, she states has had that spot for a while. Keep monitoring. Does not appear like necrosis. (3) Supratherapeutic INR: Patient has a labile INR. Patient is supratherapeutic INR on presentation which had improved and then supratherapeutic again. Most likely in combination of medical interactions. Discussed in detail with patient. Patient would benefit from switching from Coumadin to NOAC. Patient verbalized understanding and is agreeable. Patient will follow-up as an outpatient with cardiology who is [address] provider and can get medication for cheaper. Continue to monitor INR daily. Once INR stable we will start on Eliquis 5 mg twice daily. Hold off on any further Coumadin. (4) Respiratory failure with hypoxia: Resolved. Patient back to chronic hypoxic respiratory failure requiring 2 to 3 L of oxygen supplementation. Today about the same, on 3 L nasal cannula, feels comfortable. Continue with fluid restriction and Bumex. No further contraction alkalosis so holding off on Diamox. Renal function stable. Continue BiPAP nightly and as needed. (5) CHF (congestive heart failure), NYHA class III: Patient has been trending positive for last few days. Overall since admission patient is euvolemic but positive for last 5 days. Increase Bumex dose to 1 mg twice daily. Continue with fluid restriction. Qualifiers: Congestive heart failure chronicity: acute on chronic Congestive heart failure type: diastolic Qualified Code(s): I50.33 - Acute on chronic diastolic (congestive) heart failure (6) KATHI (acute kidney injury): Renal function stable. Creatinine noted with improvement down to 1.5 ,BUN 65 Although still slightly positive balance last 24 hours. Continue for now with 1 milligram Bumex daily only. Reassess renal function, volume status. Off Diamox as CHF appears likely resolved. Renal stone protocol CT obtained due to some persistence of microscopic hematuria. No obstruction noted. (7) Atrial fibrillation with RVR: Heart rate now remains controlled. Has received 7-day course of amiodarone 200 mg twice daily. Change amiodarone dose to 200 mg oral daily. Continue with metoprolol 25 mg twice daily. (8) Hyponatremia: Resolved (9) Wound, open, leg: (10) PAD (peripheral artery disease): (11) Hypertension: (12) Warfarin anticoagulation: (13) Carotid disease, bilateral: (14) COPD (chronic obstructive pulmonary disease): (15) CHF exacerbation: (16) Peripheral neuropathy: Plan Hematuria: Most likely traumatic in setting of supratherapeutic INR. Resolving. DC Monsalve. Continue bladder scanning and as needed straight catheterization. Supratherapeutic INR has resolved today. DNR/DNI. Regular diet. Supratherapeutic INR with suffice for DVT prophylaxis Protonix for PUD prophylaxis. Discharge plan: Plan to discharge to SNF in 24 hours if patient's potassium levels remain stable Attestations Medical Necessity Statement*: Requires further hospitalization for management of severe hyperkalemia, supratherapeutic INR, resolving A-fib with RVR and acute on chronic hypoxic respiratory failure Diagnoses Hyperkalemia E87.5 Cellulitis L03.90 Supratherapeutic INR R79.1 Respiratory failure with hypoxia J96.91 CHF (congestive heart failure), NYHA class III I50.33 Congestive heart failure chronicity: acute on chronic Congestive heart failure type: diastolic KATHI (acute kidney injury) N17.9 Atrial fibrillation with RVR I48.91 Hyponatremia E87.1 Wound, open, leg S81.809A PAD (peripheral artery disease) I73.9 Hypertension I10 Warfarin anticoagulation Z79.01 Carotid disease, bilateral I77.9 COPD (chronic obstructive pulmonary disease) J44.9 CHF exacerbation I50.9 Peripheral neuropathy G62.9
[2023-02-11] MEDS: magnesium hydroxide 30 mL UDC PO (10:11)
[2023-02-11] MEDS: pantoprazole DR 40 mg Tablet PO (10:11)
[2023-02-11] MEDS: fluconazole 100 mg Tablet 200 MG PO (10:11)
[2023-02-11] MEDS: bumetanide 1 mg Tablet PO ×2 (10:11→18:01)
[2023-02-11] MEDS: metoprolol tartrate 25 mg Tablet PO ×2 (10:11→21:06)
[2023-02-11] MEDS: amiodarone 200 mg Tablet PO (10:12)
[2023-02-11] MEDS: lidocaine 5% Patch 1 PATCH TOPICAL ×2 (10:12→21:04)
[2023-02-11] MEDS: aspirin 81 mg Chew Tablet PO (10:12)
[2023-02-11] MEDS: sennosides-docusate Tablet 1 TAB PO ×2 (10:12→17:57)
[2023-02-11] MEDS: nystatin cream 30 gm 1 APPLIC TOPICAL ×2 (10:14→18:01)
[2023-02-11 11:15] LABS: Potassium 6.9 mmol/L (3.5-5.1)
[2023-02-11] MEDS: calcium gluconate 0.9% NaCL 1 GM/50 ML PREMIX IV (12:17)
[2023-02-11] MEDS: insulin regular-human 10 UNIT in SYRINGE 1 EACH IVP ×2 (12:18→18:24)
[2023-02-11] MEDS: dextrose 50% syringe 50 mL IVP (12:19)
[2023-02-11 16:23] LABS: Potassium 6.6 mmol/L (3.5-5.1)
[2023-02-11] MEDS: atorvastatin 40 mg Tablet 80 MG PO (17:57)
[2023-02-11] MEDS: sodium polystyrene sulfonate 15 gm/60 mL Btl PO ×2 (17:57→23:19)
[2023-02-11] MEDS: ropinirole 0.25 mg Tablet 0.5 MG PO (21:06)
[2023-02-11 23:18] LABS: Potassium 5.6 mmol/L (3.5-5.1)
[2023-02-12] VITALS (13 sets, daily range): BP systolic 97–129; BP diastolic 51–111; PULSE 78–139; RESP 18–30; TEMP 36.6–37.1; O2SAT 90–95
--- NOTE | 2023-02-12 00:15 | PC.NURSE ---
Bladder scan done at 0015, bladder contains 56/ml.
[2023-02-12] MEDS: ipratropium 0.5 mg/2.5 mL Neb INHALATION ×3 (02:14→20:22)
[2023-02-12] MEDS: levalbuterol 0.63 mg/3 mL Neb INHALATION ×3 (02:14→20:21)
[2023-02-12 04:55] LABS: Basophils # 0.1 10^3/uL (0.0-0.1); Basophils % 0.6 %; Eosinophils # 0.4 10^3/uL (0.0-0.8); Eosinophils % 2.9 %; Hematocrit 29.1 % (37.0-47.0); Hemoglobin 8.6 g/dL (11.5-15.3); Lymphocytes # 0.8 10^3/uL (0.8-4.8); Lymphocytes % 5.4 %; Mean Corpuscular HGB Conc 29.6 g/dL (30.0-36.0); Mean Corpuscular Hemoglobin 27.3 pg (28.0-34.0); Mean Corpuscular Volume 92.4 fl (81-99); Mean Platelet Volume 11.3 fL (7.4-10.4); Monocytes # 0.9 10^3/uL (0.2-0.9); Monocytes % 6.7 %; Neutrophils # 11.67 10^3/uL (1.8-7.7); Neutrophils % 83.4 %; Nucleated Red Blood Cells % 0 %; Platelet Count 256 10^3/cmm (130-400); Red Blood Count 3.15 10^6/uL (4.1-5.3); Red Cell Distribution Width 17.2 % (12.1-15.1)
[2023-02-12] MEDS: sodium polystyrene sulfonate 15 gm/60 mL Btl PO (04:59)
[2023-02-12] MEDS: cefepime 2,000 MG in sodium chloride 0.9% (plus) 50 ML 100 MG IV (05:00)
[2023-02-12 05:07] LABS: INR 2.57 (0.8-1.2)
[2023-02-12 05:17] LABS: Alanine Aminotransferase 27 U/L (0-33); Albumin Level 3.5 g/dL (3.5-5.2); Alkaline Phosphatase 177 U/L (35-105); Anion Gap 16.8 (5-19); Aspartate Amino Transferase 33 U/L (0-32); Blood Urea Nitrogen 63 mg/dL (8-23); Calcium 9.3 mg/dL (8.5-10.5); Carbon Dioxide 26 mmol/L (22-29); Chloride 100 mmol/L (98-107); Globulin 3.4 g/dL (1.3-4.6); Glucose 93 mg/dL (65-115); Osmolality Calculated 302 mOsm/kg (285-295); Potassium 5.8 mmol/L (3.5-5.1); Sodium 137 mmol/L (136-145); Total Protein 6.9 g/dL (6.6-8.7)
[2023-02-12] MEDS: budesonide 0.5 mg/2 mL Neb INHALATION ×2 (07:31→20:21)
[2023-02-12] MEDS: pantoprazole DR 40 mg Tablet PO (08:16)
[2023-02-12] MEDS: amiodarone 200 mg Tablet PO (08:16)
[2023-02-12] MEDS: metoprolol tartrate 25 mg Tablet PO (08:16)
[2023-02-12] MEDS: fluconazole 100 mg Tablet 200 MG PO (08:16)
[2023-02-12] MEDS: bumetanide 1 mg Tablet PO (08:16)
[2023-02-12] MEDS: aspirin 81 mg Chew Tablet PO (08:16)
[2023-02-12] MEDS: lidocaine 5% Patch 1 PATCH TOPICAL (08:17)
[2023-02-12] MEDS: calcium gluconate 0.9% NaCL 1 GM/50 ML PREMIX IV (10:00)
[2023-02-12] MEDS: insulin regular-human 10 UNIT in SYRINGE 1 EACH IVP (10:00)
--- NOTE | 2023-02-12 12:31 | XR_ITS ---
WS: [id number] Exam: XR abdomen min 2V [id number] Date/Time of Exam: 02/12/2023 12:34 PM Reason For Exam: vomiting Multiple dilated proximal small bowel loops have the appearance of acute small bowel obstruction. Org an margins are obscured. Small amount of gas in the sigmoid colon. No free air. Signs of vertebral pl asty involving the lower thoracic and lower lumbar spine. Surgical clips in the left inguinal region. Regional bony structures are osteopenic. XR/XR abdomen min 2V [id number] IMPRESSION: 1. Multiple dilated proximal small bowel loops suspicious for acute small bowel obstruction. No pneumoperitoneum identified. 2. There may be pleural effusion in the left base.
[2023-02-12 12:39] LABS: Potassium 5.1 mmol/L (3.5-5.1)
[2023-02-12] MEDS: ALPRAZolam 0.5 mg Tablet 0.25 MG PO (13:04)
--- NOTE | 2023-02-12 13:21 | CT_ITS ---
WS: [id number] CT ABDOMEN AND PELVIS NONCONTRAST HISTORY: sbo TECHNIQUE: Imaging performed through the abdomen and pelvis. Coronal and sagittal reformats are submi tted. All CT scans at [facility] use at least one of these dose optimization techniques: auto mated exposure control; mA and/or kV adjustment per patient size (includes targeted exams where dose is matched to clinical indication); or iterative reconstruction. DLP: 902.69 mGy.cm COMPARISON: 02/05/2023 Lower thorax: Small bilateral pleural effusions similar to the prior study. Compressive atelectasis a t the lung bases. Mild enlargement of the heart. Small amount of fluid in the distal esophagus. Liver: Hepatic steatosis. No bile duct dilatation. Gallbladder: Contracted. Similar to the prior study. Pancreas: Normal size and attenuation. Normal pancreatic duct. No pancreatitis or mass. Spleen: Normal. Adrenal glands: Normal. No mass. Right kidney: Normal size kidney with no mass or hydronephrosis. Left kidney: Normal size kidney with no mass or hydronephrosis. Aorta: Heavily calcified aorta. Nonaneurysmal dilatation. Small caliber common iliac arteries. Heavy calcification in the splenic artery and SMA. No free fluid, intraperitoneal air or significant lymphadenopathy. GI tract: New, marked fluid distention of the stomach. There is small bowel dilatation measuring up t o 4.8 cm in diameter. Changing caliber of the mid abdomen. The distal small bowel loops are decompres sed. No colon obstruction. Abdominal wall: Ventral abdominal wall hernia contains fat only. Pelvis: Normally distended urinary bladder contains a small amount of air. Atrophic uterus. No pelvic mass. Osseous structures: Moderate increase in the lumbar lordosis. Multiple osteoporotic compression fract ures. Vertebral plasties within T10, T11, L4 and L5. CT/CT abdomen pelvis wo con [id number] IMPRESSION: 1. Interval development of high-grade small bowel obstruction since 02/05/2023. Probably due to adhesions. Change in caliber in the mid small bowel. 2. Marked fluid distention of the stomach. Patient would benefit from a nasoga stric tube. 3. Small bilateral pleural effusions. 4. No free air. 5. Small amount of air in the urinary bladder.
[2023-02-12 15:47] LABS: Lactic Sepsis W/Reflex 1.1 mmol/L (0.5-2.2)
--- NOTE | 2023-02-12 16:25 | XRR_ITS ---
PROCEDURE INFORMATION: Exam: XR Chest Exam date and time: 02/12/2023 4:46 PM Age: 72 years old Clinical indication: Device placement; Other: Picc line and ng tube placement; Additional info: Picc placement, ryan placing in [facility] room 105. Will call when ready ng tube also TECHNIQUE: Imaging protocol: Radiologic exam of the chest. Views: 1 view. COMPARISON: CR XR chest 1V portable [id number] 02/05/2023 4:11 AM XR/XR chest 1V portable [id number] IMPRESSION: The right PICC line has been placed which terminates at the superior cavoatrial junction is. A nasogastric tube traverses the thorax. The cardiopulmonary findings are unchanged compared to the prior exam.
--- NOTE | 2023-02-12 16:26 | P.PN_ITS ---
Subjective Subjective: No acute events overnight. Patient has remained stable on 3 L oxygen supplementation. Today morning seen sitting in chair. Patient did have acute bowel movement earlier today morning. On examination patient was having episodes of vomiting. Complaining of nausea and belching. Abdominal x-ray was obtained which is concerning for possible bowel obstruction which was confirmed on CT abdomen pelvis with high-grade bowel obstruction. Patient remained comfortable though was complaining of nausea. Surgeries been consulted. Switch to oral to IV medications. Plan for PICC line placement. Blood work appreciated for a stable CBC with leukocytosis and hemoglobin being stable, INR of 2.57, BMP showing slightly elevation of creatinine to 2 with a stable BUN, potassium early in the morning elevated but better than yesterday to 5.8 resolving to 5.1 later in the afternoon Medications: Reviewed: Yes Vitals/I&O/Wt Last Vital Signs Temp 98.8 F 02/12/23 12:00 Pulse 109 H 02/12/23 14:00 Resp 24 H 02/12/23 12:00 BP 123/70 02/12/23 12:00 Pulse Ox 93 02/12/23 12:00 O2 Del Method Nasal Cannula 02/12/23 12:00 O2 Flow Rate 4 02/12/23 07:33 FiO2 40 02/12/23 02:23 02/12/23 02/12/23 02/12/23 06:59 14:59 22:59 Intake Total 50 / 1115.2 559.267 / 559.267 Output Total 0 / 300 Balance 50 / 815.2 559.267 / 559.267 Weight last 48 hrs Weight 92.533 kg Physical Exam Narrative: General: No acute distress, AO x3, NC oxygen supplementation, chronically sick appearing HEENT: PERRLA, pupils bilaterally equal and reactive Chest: Bronchial breath sounds b/l coarse crackles with occasional rhonchi all over lung long CVS: S1-S2 irregularly irregular, soft pansystolic murmur at apex this, no tachycardia, no gallops, no rubs Abdomen: Soft, distended, nontender, bowel sounds sluggish Neuro: No focal deficits, no facial deformity, AO x3, power 5/5 in all limbs Urinary Catheter Management: Monsalve: Cath Placed During This Visit: yes, but has since been removed by the nurse Reason for Continuing Indwelling Catheter: Decision to DC Catheter Urinary Catheter Date of Insertion: 01/25/23 Urinary Catheter Time of Insertion: 15:00 Date Urinary Catheter Removed: 02/11/23 Time Urinary Catheter Discontinued: 15:30 Data 02/12/23 04:24 02/12/23 12:05 A&P Assessment and plan (1) SBO (small bowel obstruction): Seen on CT abdomen/pelvis. High-grade. Strict NPO. Bowel rest. Switch oral to IV medications. NG tube placement. IV Protonix, Zofran as needed. Consult surgery. (2) Hyperkalemia: Insetting of oral potassium supplementation. Resolving. Stop Kayexalate. Monitor BMP in afternoon and then daily. If continues to remain elevated will plan for another D50 along with 10 units of insulin and calcium gluconate. (3) Cellulitis: Continue wound care with zinc oxide. Frequent repositioning. Out of bed to chair. MRSA negative. Stop vancomycin. Finished Cefepime on 02/12. Continue fluconazole for 7-day course with last dose on 02/15. Lower extremities do not appear to have active cellulitis beyond chronic changes, ulceration on anterior medial right lower leg. 1cm spot of eschar on l ateral second left toe, she states has had that spot for a while. Keep monitoring. Does not appear like necrosis. (4) Supratherapeutic INR: Patient has a labile INR. Patient is supratherapeutic INR on presentation which had improved and then supratherapeutic again. Most likely in combination of medical interactions. Discussed in detail with patient. Patient would benefit from switching from Coumadin to NOAC. Patient verbalized understanding and is agreeable. Patient will follow-up as an outpatient with cardiology who is [address] provider and can get medication for cheaper. INR stable. For now start on heparin drip. On discharge she will start on Eliquis 5 mg twice daily. Hold off on any further Coumadin. (5) Respiratory failure with hypoxia: Resolved. Patient back to chronic hypoxic respiratory failure requiring 2 to 3 L of oxygen supplementation. Today about the same, on 3 L nasal cannula, feels comfortable. Given small bowel obstruction with restricted oral intake for now we will hold off on Bumex. Hold off on fluids as patient is at high risk of congestive heart failure. Monitor input output strictly. Replace Monsalve. Continue BiPAP nightly and as needed. (6) CHF (congestive heart failure), NYHA class III: Net 1 L positive. Input output and Lasix along with fluid as above. Qualifiers: Congestive heart failure chronicity: acute on chronic Congestive heart failure type: diastolic Qualified Code(s): I50.33 - Acute on chronic diastolic (congestive) heart failure (7) KATHI (acute kidney injury): Continue to monitor BMP daily. Creatinine slightly elevated today. Although still slightly positive balance last 24 hours. Reassess renal function, volume status. Off Diamox as CHF appears likely resolved. (8) Atrial fibrillation with RVR: Heart rate now remains controlled. Has received 7-day course of amiodarone 200 mg twice daily. Switching oral to IV given small bowel obstruction. Switch from oral 200 mg amiodarone to amiodarone at 0.5 continuous gtt. (9) Hyponatremia: Resolved (10) Wound, open, leg: (11) PAD (peripheral artery disease): (12) Hypertension: (13) Warfarin anticoagulation: (14) Carotid disease, bilateral: (15) COPD (chronic obstructive pulmonary disease): (16) CHF exacerbation: (17) Peripheral neuropathy: Plan Hematuria: Most likely traumatic in setting of supratherapeutic INR. Resolving. DC Monsalve. Continue bladder scanning and as needed straight catheterization. Supratherapeutic INR has resolved today. DNR/DNI. Regular diet. Supratherapeutic INR with suffice for DVT prophylaxis Protonix for PUD prophylaxis. Discharge plan: Plan to discharge to SNF in 24 hours if patient's potassium levels remain stable Attestations Medical Necessity Statement*: Requires further hospitalization for management of high-grade small bowel obstruction, hyperkalemia in a patient who was originally admitted for congestive heart failure with respiratory failure, supratherapeutic INR in setting of atrial fibrillation with rapid ventricular response, CKD. Coding Level of Care Code Critical Care >/= 30 minutes Critical care time (in minutes): 60 The high probability of a clinically significant, sudden or life threatening deterioration, as referenced in this documentation, required my full and direct attention, intervention and personal management. The critical care time shown is in addition to time spent performing any reported separately billable procedures and includes the following: [x] Data and vital sign review and interpretation [x ] Patient assessment, examination and intervention [x] Medication orders and management [x] Patient/Family updates as able [x] Care Coordination and Documentation. Diagnoses SBO (small bowel obstruction) K56.609 Hyperkalemia E87.5 Cellulitis L03.90 Supratherapeutic INR R79.1 Respiratory failure with hypoxia J96.91 CHF (congestive heart failure), NYHA class III I50.33 Congestive heart failure chronicity: acute on chronic Congestive heart failure type: diastolic KATHI (acute kidney injury) N17.9 Atrial fibrillation with RVR I48.91 Hyponatremia E87.1 Wound, open, leg S81.809A PAD (peripheral artery disease) I73.9 Hypertension I10 Warfarin anticoagulation Z79.01 Carotid disease, bilateral I77.9 COPD (chronic obstructive pulmonary disease) J44.9 CHF exacerbation I50.9 Peripheral neuropathy G62.9
--- NOTE | 2023-02-12 17:00 | P.CONIM_ITS ---
Providers/Reason For Consult Consulting Physician/Specialty*: Dr. Dirk Carter, /General surgery Reason for Consult*: Small bowel obstruction Attending Physician: Drew Richardson MD Primary Care Provider: Gurwinder Lomeli DO History of Present Illness History of Present Illness Nimo Pressley is a 72 year old female who has had an extended hospital stay. She was in decompensated heart failure but that is now under control. She was about to be discharged when she started vomiting. She reports that she is still passing gas and having bowel movements. A CT of the abdomen pelvis however shows a high-grade small bowel obstruction in the mid small bowel. NG tube has been placed. She reports mild diffuse abdominal pain that does not radiate. Palpation makes pain worse. Nothing makes pain better. Denies any hematochezia and/or melena Review of Systems General: Reports: 10 or more systems reviewed and unremarkable except in HPI and below Medications/Allergies Home Medications Medication Instructions Recorded Confirmed Last Taken Type albuterol sulfate 90 mcg/actuation 1 puff inhalation QID PRN 04/26/21 01/25/23 02/26/22 Rx aerosol inhaler shortness of breath or wheezing #8.5 grams hydrocodone 5 mg-acetaminophen 325 1 tab PO Q4H PRN pain 5 days #30 04/10/22 01/25/23 05/27/22 20:00 Rx mg tablet tabs aspirin 81 mg capsule 81 mg PO DAILY 05/28/22 01/25/23 01/24/23 History bumetanide 2 mg tablet 2 mg PO BID #180 tabs 06/05/22 01/25/23 01/24/23 Rx carvedilol 6.25 mg tablet 6.25 mg PO BID #180 tabs 06/05/22 01/25/23 01/25/23 Rx metolazone 2.5 mg tablet 2.5 mg PO .every other day #90 tabs 06/05/22 01/25/23 01/23/23 Rx spironolactone 25 mg tablet 25 mg PO DAILY #90 tabs 06/05/22 01/25/23 01/25/23 Rx famotidine 20 mg tablet (Pepcid AC) 20 mg PO DAILY #90 tabs 08/23/22 01/25/23 01/25/23 Rx magnesium L-lactate 84 mg 250 mg PO BID 09/15/22 01/25/23 01/24/23 History tablet,extended release potassium chloride 20 mEq 40 meq PO DAILY 09/15/22 01/25/23 01/24/23 History tablet,extended release calamine 3 %-zinc oxide 3 %-gauze #10 ea 09/20/22 01/25/23 Unknown Rx bandage 3 X 10 yard (Unna Boot Zinc-Calamine) atorvastatin 80 mg tablet 80 mg PO QPM 01/25/23 01/25/23 01/24/23 History warfarin 4 mg tablet See Rx Instructions .Route .COMPLEX 01/25/23 01/25/23 01/24/23 History Allergies Allergy/AdvReac Type Severity Reaction Status Date / Time nkda Allergy Unknown Unknown Uncoded 01/24/23 13:14 Current Medications Generic Name Dose Route Start Last Admin Trade Name Freq PRN Reason Stop Dose Admin Acetaminophen 650 mg 01/25/23 13:10 02/09/23 09:23 Acetaminophen 325 Mg Tablet PO 650 mg Q6H PRN Administration Mild/Mod Pain Or Temp >/= 101 Hydrocodone Bitart/Acetaminophen 1 tab 02/07/23 20:07 02/10/23 20:41 Hydrocodone-Acetaminophen 5-325 Mg Tablet PO 1 tab Q4H PRN Administration MODERATE PAIN Alprazolam 0.25 mg 02/12/23 12:38 02/12/23 13:04 Alprazolam 0.5 Mg Tablet PO 0.25 mg BID PRN Administration ANXIETY Amiodarone HCl 200 mg 02/11/23 09:00 02/12/23 08:16 Amiodarone 200 Mg Tablet PO 200 mg DAILY ETHAN Administration Aspirin 81 mg 01/26/23 09:00 02/12/23 08:16 Aspirin 81 Mg Chew Tablet PO 81 mg DAILY ETHAN Administration Atorvastatin Calcium 80 mg 01/25/23 18:00 02/11/23 17:57 Atorvastatin 40 Mg Tablet PO 80 mg QPM ETHAN Administration Budesonide 0.5 mg 01/28/23 20:00 02/12/23 20:21 Budesonide 0.5 Mg/2 Ml Neb INHALATION 0.5 mg BID.RESPIRATORY ETHAN Administration Denture Adhesive 1 applic 01/30/23 09:06 01/30/23 18:41 Fixodent 39 Gm Tube DENTAL 1 applic PRN PRN Administration denture adhesive Fluticasone Propionate 2 spray 01/28/23 09:00 02/12/23 08:17 Fluticasone Nasal [place] 16gm Btl NASAL Not Given DAILY ETHAN Amiodarone HCl 900 mg/ 518 mls @ 17.267 mls/hr 02/12/23 16:30 02/12/23 18:31 Dextrose/ IV Miscellaneous IV 0.5 mg/min Supplies CONT ETHAN 17.27 mls/hr Administration 0.5 MG/MIN Ipratropium [place] 0.5 mg 01/28/23 14:00 02/13/23 02:52 Ipratropium 0.5 Mg/2.5 Ml Neb INHALATION 0.5 mg Q6H.RESP ETHAN Administration Levalbuterol HCl 0.63 mg 01/28/23 14:00 02/13/23 02:52 Levalbuterol 0.63 Mg/3 Ml Neb INHALATION 0.63 mg Q6H.RESP ETHAN Administration Lidocaine 1 patch 02/10/23 21:00 02/12/23 21:49 Lidocaine 5% Patch TOPICAL Not Given [id number] ETHAN Metoprolol Tartrate 25 mg 01/30/23 09:05 02/12/23 08:16 Metoprolol Tartrate 25 Mg Tablet PO 25 mg BID@0900,2100 ETHAN Administration Nystatin 1 applic 02/05/23 12:25 02/12/23 18:32 Nystatin Cream 30 Gm TOPICAL Not Given BID ETHAN Ondansetron HCl 4 mg 01/25/23 13:38 02/10/23 03:00 Ondansetron 2 Mg/Ml Sdv 2 Ml IVP 4 mg Q8H PRN Administration vomiting, or N/V if npo Pantoprazole Sodium 40 mg 02/12/23 18:00 02/13/23 05:18 Pantoprazole 40 Mg Sdv IVP 40 mg Q12H ETHAN Administration Ropinirole HCl 0.5 mg 01/28/23 21:00 02/12/23 21:04 Ropinirole 0.25 Mg Tablet PO Not Given BEDTIME ETHAN PFSH Acute PFSH: Medical History Abdominal distention Acute hyponatremia Carotid artery stenosis Carotid disease, bilateral Cellulitis Chest pain CHF (congestive heart failure), NYHA class III Diastolic heart failure with EF of 55 to 60% COPD (chronic obstructive pulmonary disease) Dyslipidemia Femoral artery occlusion Hypertension Lymphedema of both lower extremities PAD (peripheral artery disease) Peripheral edema Peripheral vascular disease Respiratory failure Smoker SOB (shortness of breath) Superficial femoral artery occlusion TIA (transient ischemic attack) Uncontrolled hypertension Venous stasis dermatitis of right lower extremity Surgical History S/P peripheral artery angioplasty with stent placement S/P vascular surgery Status post carotid surgery (~2012) bilateral Family History Other CAD (coronary artery disease) Social History Smoking and tobacco status: former smoker Quit status (tobacco): considering quitting Second hand smoke exposure: Yes Alcohol intake: never Substance/Drug Use: never Caregiver/support person: Yes Lives independently: Yes Household members: spouse Marital status: service: No Current occupational status: retired Current gender identity: Female Vitals/I&O/Wt Last Vital Signs Temp 97.8 F 02/12/23 18:21 Pulse 94 02/13/23 05:32 Resp 19 H 02/13/23 03:45 BP 121/50 02/13/23 03:45 Pulse Ox 95 02/13/23 03:45 O2 Del Method Nasal Cannula 02/13/23 03:04 O2 Flow Rate 3 02/13/23 03:04 FiO2 40 02/12/23 02:23 02/12/23 02/13/23 02/13/23 22:59 06:59 14:59 Output Total 1125 / 1125 Balance -1125 / -565.733 Physical Exam Narrative: General : Patient is well developed , no acute distress, oriented x3 Head : Normal cephalic, a-traumatic. Ears : Pinnae and external canal are normal. Hearing is normal. Eyes : PERRLA, Sclera and injection are normal. No conjunctival discharge. Nose : Mucous membranes are without erythema. Throat : buccal mucosa is normal, gums are without significant recession or hypertrophy. Lungs : Equal chest rise bilaterally, no use of accessory muscles, trachea is midline. Cor : Rate and rhythm are normal. Abdomen : Soft, mild distention, mild diffuse tenderness, no g/r/m Extremities : No edema, no cyanosis or clubbing, dorsalis pedis pulses are present bilaterally, non-tender to palpation of calves. Upper extremities are normal bilaterally. Back : non-tender to palpation, no CVA tenderness. Neuro : CN II - XII intact, Upper and lower extremities have equal and full strength Urinary Catheter Management: Monsalve: Cath Placed During This Visit: yes, but has since been removed by the nurse Reason for Continuing Indwelling Catheter: Decision to DC Catheter Urinary Catheter Date of Insertion: 01/25/23 Urinary Catheter Time of Insertion: 15:00 Date Urinary Catheter Removed: 02/11/23 Time Urinary Catheter Discontinued: 15:30 Data 02/13/23 01:16 02/13/23 01:16 A&P Assessment and plan (1) Partial small bowel obstruction: Plan NG tube to low intermittent suction Hold off on fluids for now due to her recent decompensated heart failure Conservative management for now. She only has a history of appendectomy, and the area of obstruction appears to be away from the right lower quadrant. If her obstruction does not resolve in the next few days we will have to consider diagnostic laparoscopy versus exploratory laparotomy. Medical management per hospitalist Coding Level of Care Code 53461 Diagnoses Partial small bowel obstruction K56.600
--- NOTE | 2023-02-12 17:00 | PC.NURSE ---
Triple lumen PICC placed to right brachial vein with some difficulty. Right basilic vein initially assessed and attempted. Able to access, but unable to thread. Second attempt made to right brachial vein with success. Mid-arm circumference measured 10 cm from right AC 29 cm. Trimmed cath length 37 cm with 1 cm external length noted. CXR has tip appearing to be in the distal SVC. Awaiting radiologist's review. Line secured with stat lock. Insertion site covered with Biopatch, gauze, and TSM. Dressing due to be changed tomorrow, 02/13/23. Report given to bedside nurse, Bobbi.
[2023-02-12] MEDS: pantoprazole 40 mg SDV IVP (18:32)
[2023-02-12] MEDS: heparin 5,000 unit/mL INJ 1 mL IV (19:42)
[2023-02-13] VITALS (22 sets, daily range): BP systolic 95–140; BP diastolic 50–64; PULSE 78–117; RESP 18–39; TEMP 36.6–37.1; O2SAT 88–95
[2023-02-13 01:41] LABS: Basophils # 0.1 10^3/uL (0.0-0.1); Basophils % 0.6 %; Eosinophils # 0.4 10^3/uL (0.0-0.8); Eosinophils % 2.3 %; Hematocrit 26.6 % (37.0-47.0); Hemoglobin 7.9 g/dL (11.5-15.3); Lymphocytes # 1.1 10^3/uL (0.8-4.8); Lymphocytes % 5.9 %; Mean Corpuscular HGB Conc 29.7 g/dL (30.0-36.0); Mean Corpuscular Hemoglobin 27.1 pg (28.0-34.0); Mean Corpuscular Volume 91.1 fl (81-99); Mean Platelet Volume 11.8 fL (7.4-10.4); Monocytes # 1.3 10^3/uL (0.2-0.9); Neutrophils # 15.08 10^3/uL (1.8-7.7); Neutrophils % 83.2 %; Nucleated Red Blood Cells % 0 %; Platelet Count 263 10^3/cmm (130-400); Red Blood Count 2.92 10^6/uL (4.1-5.3); Red Cell Distribution Width 17.3 % (12.1-15.1); White Blood Count 18.1 10^3/uL (4.0-10.0)
[2023-02-13 01:50] LABS: INR 2.48 (0.8-1.2)
[2023-02-13 01:55] LABS: Alanine Aminotransferase 22 U/L (0-33); Albumin Level 3.2 g/dL (3.5-5.2); Alkaline Phosphatase 157 U/L (35-105); Blood Urea Nitrogen 64 mg/dL (8-23); Calcium 8.9 mg/dL (8.5-10.5); Carbon Dioxide 25 mmol/L (22-29); Chloride 98 mmol/L (98-107); Globulin 3.2 g/dL (1.3-4.6); Glucose 109 mg/dL (65-115); Osmolality Calculated 293 mOsm/kg (285-295); Sodium 132 mmol/L (136-145); Total Protein 6.4 g/dL (6.6-8.7)
[2023-02-13 01:56] LABS: Anion Gap 15.3 (5-19); Potassium 6.3 mmol/L (3.5-5.1)
[2023-02-13 01:57] LABS: Aspartate Amino Transferase 27 U/L (0-32)
--- NOTE | 2023-02-13 02:09 | PC.NURSE ---
NG tube output 450 ml
[2023-02-13 02:27] LABS: Partial Thromboplastin Time 222.2 SECONDS (23.9-36.7)
[2023-02-13] MEDS: ipratropium 0.5 mg/2.5 mL Neb INHALATION ×4 (02:52→20:34)
[2023-02-13] MEDS: levalbuterol 0.63 mg/3 mL Neb INHALATION ×4 (02:52→20:35)
--- NOTE | 2023-02-13 03:10 | PC.NURSE ---
Spoke with Dr. Rodgers regarding heparin gtt. Patients HBG has dropped to 7.9 and her ptt came back 222.2 orders to discontinue heparin. Linda spoke with her regarding heart rate and received orders to give loading dose of digoxin 500mcg now, then 250mcg of digoxin 6 hours apart times 3 doses.
[2023-02-13] MEDS: digoxin 250 mcg/ml INJ 2 mL 500 MCG IVP (03:25)
[2023-02-13 03:31] LABS: Partial Thromboplastin Time 213.2 SECONDS (23.9-36.7)
[2023-02-13] MEDS: pantoprazole 40 mg SDV IVP ×2 (05:18→18:16)
--- NOTE | 2023-02-13 05:35 | PC.NURSE ---
Total output from NG tube on PM shift is 625ml
[2023-02-13] MEDS: budesonide 0.5 mg/2 mL Neb INHALATION ×2 (07:50→20:34)
[2023-02-13] MEDS: digoxin 250 mcg/ml INJ 2 mL IVP (08:09)
[2023-02-13] MEDS: lidocaine 5% Patch 1 PATCH TOPICAL (08:09)
[2023-02-13] MEDS: nystatin cream 30 gm 1 APPLIC TOPICAL (08:10)
--- NOTE | 2023-02-13 08:50 | XR_ITS ---
WS: [id number] Exam: XR acute abdomen series [id number] Date/Time of Exam: 02/13/2023 9:39 AM Reason For Exam: sbo Chest x-ray compared to the last exam 02/12/2023. Bibasal pleural effusions are noted with slight improvement on the right. The heart is enlarged. Ther e is increased pulmonary vascularity but some improvement since the last exam. A right-sided PICC keaton e ends in the lower one third of the SVC. An enteric tube is noted in the stomach. Signs of vertebral plasty involving the lower T-spine. Flat and erect abdomen. There are still several moderately dilated small bowel loops in the central a bdomen. A small amount of gas and stool in the rectosigmoid colon and right and left colon. No free a ir. No sign of organ enlargement. Bony structures are intact. Signs of vertebral plasty involving L4 on L5. XR/XR acute abdomen series [id number] IMPRESSION: 1. Bilateral pleural effusions with minimal improvement. Cardiac enlargement wi th pulmonary vascular congestion slightly improved. 2. There are still dilated proximal small bowel loops in the abdomen suggesting partial or incomplete small bowel obstruction. Small amount of gas noted in t he rectosigmoid colon as well as the right and left colon.
[2023-02-13] MEDS: calcium gluconate 0.9% NaCL 1 GM/50 ML PREMIX IV (09:41)
[2023-02-13] MEDS: insulin regular-human 10 UNIT in SYRINGE 1 EACH IVP (09:42)
[2023-02-13] MEDS: fluconazole premix 100 MG in empty flexible container 1 EACH 50 MG IV (09:43)
[2023-02-13 09:45] LABS: Add Urine Microscopic? YES; Bilirubin Urine Neg (Negative); Blood Urine 3+ (Negative); Glucose Urine UA Norm (Normal); Ketones Urine 1+ (Negative); Leukocyte Esterase Urine 2+ (Negative); Nitrate Urine Negative (Negative); Protein Urine 2+ (Negative); Specific Gravity, Urine 1.025 (1.005-1.030); Urine Appearance Cloudy (CLEAR); Urine Color Brown (Yellow); Urobilinogen Urine Norm (Negative); pH Urine 5 (5-7)
--- NOTE | 2023-02-13 09:46 | PC.SOCIAL ---
IMM Updated Updated pt on IMM. No questions voiced. Provided pt a copy. Initialed, dated, & timed copy in chart.
[2023-02-13 09:59] LABS: Potassium, Radom Urine 57 mmol/L
[2023-02-13 10:00] LABS: Urine Random Chloride 19 mmol/L; Urine Random Sodium 14 mmol/L
[2023-02-13 10:02] LABS: Squamous Epithelial Cell Urine 0-4 /hpf (0-5); WBC Urine 55-80 /hpf (0-5)
[2023-02-13 10:04] LABS: Amorphous Sediment Urine 2+ /hpf; Bacteria Urine 3+ /hpf; Mucus Urine 1+ /hpf; RBC Urine >100 /hpf (0-2)
[2023-02-13 10:05] LABS: Add Urine Culture? Yes
[2023-02-13 14:32] LABS: Anion Gap 17.4 (5-19); Blood Urea Nitrogen 65 mg/dL (8-23); Calcium 8.9 mg/dL (8.5-10.5); Carbon Dioxide 22 mmol/L (22-29); Chloride 98 mmol/L (98-107); Glucose 86 mg/dL (65-115); Osmolality Calculated 292 mOsm/kg (285-295); Potassium 5.4 mmol/L (3.5-5.1); Sodium 132 mmol/L (136-145)
--- NOTE | 2023-02-13 14:33 | P.PN_ITS ---
Subjective Subjective: Patient seen multiple times during the day today. NG tube in place. Overnight passing minimal gas did have a very small bowel movement today. Today events and patient states he continues to pass gas but no bowel movements. NG tube suction drain not documented. Overnight patient had episode of tachycardia for which she was given IV digoxin 500 which was repeated at 2 50 mcg additionally today morning. Urine output in last 24 hours was 1125. Today morning when seen patient was sitting up in chair, asking to be going back to bed. Patient also denies any nausea, vomiting abdominal discomfort pain difficulty in breathing. Remains on 3 L. When seen today morning heart rate running in low 90s with systolic blood pressure of more than 110 mmHg. Blood work appreciated for hemoglobin down to 7.9, leukocytosis, INR of 2.4, hyperkalemia of 6.3, sodium of 132, creatinine worsening to 2.46 Medications: Reviewed: Yes Vitals/I&O/Wt Last Vital Signs Temp 98.1 F 02/13/23 12:49 Pulse 93 02/13/23 13:30 Resp 22 H 02/13/23 13:22 BP 114/55 02/13/23 12:49 Pulse Ox 94 02/13/23 13:22 O2 Del Method Nasal Cannula 02/13/23 13:22 O2 Flow Rate 3 02/13/23 13:22 FiO2 40 02/12/23 02:23 02/12/23 02/13/23 02/13/23 22:59 06:59 14:59 Intake Total 150.1 / 150.1 Output Total 1125 / 1125 Balance -1125 / -565.733 150.1 / 150.1 Physical Exam Narrative: General: No acute distress, AO x3, NC oxygen supplementation, chronically sick appearing, NG tube in place HEENT: PERRLA, pupils bilaterally equal and reactive Chest: Bronchial breath sounds b/l coarse crackles with occasional rhonchi all over lung long CVS: S1-S2 irregularly irregular, soft pansystolic murmur at apex this, no tachycardia, no gallops, no rubs Abdomen: Soft, distended, nontender, bowel sounds sluggish Neuro: No focal deficits, no facial deformity, AO x3, power 5/5 in all limbs Urinary Catheter Management: Monsalve: Cath Placed During This Visit: yes, but has since been removed by the nurse Reason for Continuing Indwelling Catheter: Decision to DC Catheter Urinary Catheter Date of Insertion: 01/25/23 Urinary Catheter Time of Insertion: 15:00 Date Urinary Catheter Removed: 02/11/23 Time Urinary Catheter Discontinued: 15:30 Data 02/13/23 01:16 02/13/23 14:08 A&P Assessment and plan (1) SBO (small bowel obstruction): Appreciate surgical recommendations. Continue with NG tube back to low suction. Repeated abdominal examination. Abdominal series x-ray today. Out of bed to chair. IV Protonix, Zofran as needed. (2) Atrial fibrillation with RVR: Heart rate now remains controlled. Hold off on any further digoxin given hyperkalemia and KATHI. Repeat digoxin level in afternoon. Continue with IV amiodarone at 0.5. Switch from metoprolol IV as needed to 2.5 every 6 to be held if systolic blood pressures less than 110 mmHg. (3) Hyperkalemia: Insetting of oral potassium supplementation. Again worsening today. Hold off on Kayexalate given small bowel obstruction. Repeat D50 with 10 units insulin and calcium gluconate. Check urine lites, urinalysis and a repeat BMP in afternoon. (4) KATHI (acute kidney injury): Creatinine worsening. Most likely in setting of dehydration from poor oral intake given NG tube in place. Continue to hold Bumex. Transfusing PRBC today. After blood depending on fluid status can start on gentle IV hydration. Repeat BMP in afternoon. (5) Supratherapeutic INR: Patient has a labile INR. Patient is supratherapeutic INR on presentation which had improved and then supratherapeutic again. Most likely in combination of medical interactions. Discussed in detail with patient. Patient would benefit from switching from Coumadin to NOAC. Patient verbalized understanding and is agreeable. Patient will follow-up as an outpatient with cardiology who is [address] provider and can get medication for cheaper. INR stable. Continue to hold off on heparin drip till INR remains more than 2. On discharge she will start on Eliquis 5 mg twice daily. Hold off on any further Coumadin. (6) Anemia: Acute on chronic. Most likely a combination of iron deficiency anemia along with anemia of chronic disease. No active sign of bleeding for now other than microscopic hematuria. Patient did have labile INR with occasional hematuria during the hospitalization. Target hemoglobin more than 8. Transfuse monitor PRBC today. Continue to monitor hemoglobin daily. (7) Cellulitis: Continue wound care with zinc oxide. Frequent repositioning. Out of bed to chair. MRSA negative. Stop vancomycin. Finished Cefepime on 02/12. Continue fluconazole for 7-day course with last dose on 02/15. Lower extremities do not appear to have active cellulitis beyond chronic changes, ulceration on anterior medial right lower leg. 1cm spot of eschar on lateral second left toe, she states has had that spot for a while. Keep mo nitoring. Does not appear like necrosis. (8) Respiratory failure with hypoxia: Resolved. Patient back to chronic hypoxic respiratory failure requiring 2 to 3 L of oxygen supplementation. Today about the same, on 3 L nasal cannula, feels comfortable. Given small bowel obstruction with restricted oral intake for now we will hold off on Bumex. Hold off on fluids as patient is at high risk of congestive heart failure. Monitor input output strictly. Replace Monsalve. Continue BiPAP nightly and as needed. (9) CHF (congestive heart failure), NYHA class III: Holding off on diuretics given worsening renal functions along with dehydration from poor oral intake given small bowel obstruction. Monitor fluid status daily. Qualifiers: Congestive heart failure chronicity: acute on chronic Congestive heart failure type: diastolic Qualified Code(s): I50.33 - Acute on chronic diastolic (congestive) heart failure (10) Hyponatremia: Resolved (11) Wound, open, leg: (12) PAD (peripheral artery disease): (13) Hypertension: (14) Warfarin anticoagulation: (15) Carotid disease, bilateral: (16) COPD (chronic obstructive pulmonary disease): (17) Peripheral neuropathy: Plan Hematuria: Monsalve replaced yesterday after small bowel obstruction. Continue to monitor for hematuria. DNR/DNI. Regular diet. Supratherapeutic INR with suffice for DVT prophylaxis Protonix for PUD prophylaxis. Discharge plan: Discharge on hold given multiple active ongoing issues Patient's care plan discussed in detail with spouse and family members at bedside. All the questions were answered. CODE STATUS discussed in detail with patient again. She want to continue to remain DNR/DNI. Attestations Medical Necessity Statement*: Requires further hospitalization for management of small bowel obstruction, persistent hypokalemia, KATHI on CKD, atrial fibrillation with rapid ventricular response in a patient admitted originally for respiratory failure for congestive heart failure Coding Level of Care Code Critical Care >/= 30 minutes Critical care time (in minutes): 60 The high probability of a clinically significant, sudden or life threatening deterioration, as referenced in this documentation, required my full and direct attention, intervention and personal management. The critical care time shown is in addition to time spent performing any reported separately billable procedures and includes the following: [x] Data and vital sign review and interpretation [x ] Patient assessment, examination and intervention [x] Medication orders and management [x] Patient/Family updates as able [x] Care Coordination and Documentation. Diagnoses SBO (small bowel obstruction) K56.609 Atrial fibrillation with RVR I48.91 Hyperkalemia E87.5 KATHI (acute kidney injury) N17.9 Supratherapeutic INR R79.1 Anemia D64.9 Cellulitis L03.90 Respiratory failure with hypoxia J96.91 CHF (congestive heart failure), NYHA class III I50.33 Congestive heart failure chronicity: acute on chronic Congestive heart failure type: diastolic Hyponatremia E87.1 Wound, open, leg S81.809A PAD (peripheral artery disease) I73.9 Hypertension I10 Warfarin anticoagulation Z79.01 Carotid disease, bilateral I77.9 COPD (chronic obstructive pulmonary disease) J44.9 Peripheral neuropathy G62.9
[2023-02-13 14:35] LABS: Digoxin 4.5 ng/mL (0.6-1.2)
--- NOTE | 2023-02-13 16:43 | ECG_ITS ---
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 Measurements Intervals [place] Rate: 95 P: 0 MI: 0 QRS: 113 QRSD: 62 T: 154 QT: 259 QTc: 327 Interpretive Statements ATRIAL FIBRILLATION RIGHT AXIS DEVIATION [QRS AXIS > 100] LOW QRS VOLTAGE [QRS DEFLECTION < 0.5/1.0 mV IN LIMB/CHEST LEADS] ANTEROSEPTAL MYOCARDIAL INFARCTION , OF INDETERMINATE AGE [40+ ms Q WAVE IN V1-V4] Compared to ECG 01/25/2023 15:29:47 Right-axis deviation now present Myocardial infarct finding still present Electronically Signed On 02-14-2023 12:24:10 CDT by Yvonne Santamaria M.D. [id number]
--- NOTE | 2023-02-13 16:58 | PM.PN ---
Subjective Subjective: Patient seen and examined. Still having mild diffuse abdominal pain. Still passing flatus but has not had a bowel movement today. Vitals/I&O/Wt Last Vital Signs Temp 98.5 F 02/13/23 16:32 Pulse 99 02/13/23 16:32 Resp 18 02/13/23 16:32 BP 121/54 02/13/23 16:32 Pulse Ox 89 L 02/13/23 16:32 O2 Del Method Nasal Cannula 02/13/23 16:00 O2 Flow Rate 3 02/13/23 13:22 FiO2 40 02/12/23 02:23 02/13/23 02/13/23 02/13/23 06:59 14:59 22:59 Intake Total 150.1 / 150.1 350 / 500.1 Output Total 1125 / 1125 Balance -1125 / -565.733 150.1 / 150.1 350 / 500.1 Physical Exam Narrative: General: No acute distress, awake alert and oriented x3 Abdomen: Soft, distended, mild diffuse tenderness, no guarding rebound or masses Urinary Catheter Management: Monsalve: Cath Placed During This Visit: yes, but has since been removed by the nurse Reason for Continuing Indwelling Catheter: Decision to DC Catheter Urinary Catheter Date of Insertion: 01/25/23 Urinary Catheter Time of Insertion: 15:00 Date Urinary Catheter Removed: 02/11/23 Time Urinary Catheter Discontinued: 15:30 Data 02/13/23 01:16 02/13/23 14:08 A&P Assessment and plan (1) Partial small bowel obstruction: Plan NG tube to low intermittent suction Hold off on fluids for now due to her recent decompensated heart failure Acute abdominal series this morning did not show any air-fluid levels Conservative management for now. She only has a history of appendectomy, and the area of obstruction appears to be away from the right lower quadrant. If her obstruction does not resolve in the next few days we will have to consider diagnostic laparoscopy versus exploratory laparotomy. Medical management per hospitalist Attestations Medical Necessity Statement*: Per primary Coding Level of Care Code 82293 Diagnoses Partial small bowel obstruction K56.600
[2023-02-13] MEDS: metoprolol tartrate 1 mg/1 mL SDV 5 mL 2.5 MG IVP (20:37)
[2023-02-13] MEDS: sodium chloride 0.9% 1,000 ML 50 ML IV (20:38)
[2023-02-14] VITALS (16 sets, daily range): BP systolic 115–143; BP diastolic 52–87; PULSE 70–98; RESP 18–37; TEMP 36.5–37.1; O2SAT 87–100; BMI 34.2
[2023-02-14] MEDS: levalbuterol 0.63 mg/3 mL Neb INHALATION ×4 (01:21→19:38)
[2023-02-14] MEDS: ipratropium 0.5 mg/2.5 mL Neb INHALATION ×4 (01:21→19:38)
[2023-02-14] MEDS: metoprolol tartrate 1 mg/1 mL SDV 5 mL 2.5 MG IVP ×4 (01:46→21:01)
[2023-02-14] MEDS: ALPRAZolam 0.5 mg Tablet 0.25 MG PO (04:05)
[2023-02-14] MEDS: pantoprazole 40 mg SDV IVP ×2 (04:06→18:05)
[2023-02-14 06:02] LABS: Basophils # 0.1 10^3/uL (0.0-0.1); Basophils % 0.5 %; Eosinophils # 0.4 10^3/uL (0.0-0.8); Eosinophils % 2.4 %; Hematocrit 26.7 % (37.0-47.0); Lymphocytes # 0.8 10^3/uL (0.8-4.8); Lymphocytes % 5.4 %; Mean Corpuscular Hemoglobin 27.1 pg (28.0-34.0); Mean Corpuscular Volume 90.5 fl (81-99); Mean Platelet Volume 11.2 fL (7.4-10.4); Monocytes % 6.9 %; Neutrophils # 11.99 10^3/uL (1.8-7.7); Neutrophils % 83.3 %; Nucleated Red Blood Cells % 0 %; Platelet Count 232 10^3/cmm (130-400); Red Blood Count 2.95 10^6/uL (4.1-5.3); Red Cell Distribution Width 17.9 % (12.1-15.1); White Blood Count 14.4 10^3/uL (4.0-10.0)
[2023-02-14 06:20] LABS: INR 2.57 (0.8-1.2)
[2023-02-14 06:22] LABS: Alanine Aminotransferase 15 U/L (0-33); Albumin Level 2.8 g/dL (3.5-5.2); Alkaline Phosphatase 134 U/L (35-105); Anion Gap 17.4 (5-19); Aspartate Amino Transferase 17 U/L (0-32); Blood Urea Nitrogen 69 mg/dL (8-23); Calcium 8.1 mg/dL (8.5-10.5); Carbon Dioxide 20 mmol/L (22-29); Chloride 106 mmol/L (98-107); Globulin 3.2 g/dL (1.3-4.6); Glucose 79 mg/dL (65-115); Osmolality Calculated 305 mOsm/kg (285-295); Potassium 5.4 mmol/L (3.5-5.1); Sodium 138 mmol/L (136-145); Total Bilirubin 0.9 mg/dL (0.15-1.2)
[2023-02-14 06:31] LABS: Digoxin 3.4 ng/mL (0.6-1.2)
--- NOTE | 2023-02-14 07:51 | PM.PN ---
Subjective Subjective: Patient seen and examined. Passing gas and had a bowel movement. Her abdominal distention has decreased Vitals/I&O/Wt Last Vital Signs Temp 97.8 F 02/15/23 03:30 Pulse 94 02/15/23 05:51 Resp 24 H 02/15/23 03:32 BP 123/76 02/15/23 03:32 Pulse Ox 92 02/15/23 03:32 O2 Del Method Nasal Cannula 02/15/23 03:30 O2 Flow Rate 6 02/15/23 03:30 FiO2 50 02/15/23 01:14 02/14/23 02/15/23 02/15/23 22:59 06:59 14:59 Output Total 225 / 495 200 / 695 Balance -225 / -445 -200 / -645 Weight last 48 hrs Weight 197 lb 8 oz Weight 199 lb 5 oz Physical Exam Narrative: General: No acute distress, awake alert and oriented x3 Abdomen: Soft, mild distention, mild diffuse tenderness, no guarding rebound or masses Urinary Catheter Management: Monsalve: Cath Placed During This Visit: yes, but has since been removed by the nurse Reason for Continuing Indwelling Catheter: Decision to DC Catheter Urinary Catheter Date of Insertion: 01/25/23 Urinary Catheter Time of Insertion: 15:00 Date Urinary Catheter Removed: 02/11/23 Time Urinary Catheter Discontinued: 15:30 Data 02/15/23 05:15 02/15/23 05:15 Micro: Microbiology 02/13/23 09:15 Urine Culture - Preliminary Urine,Clean Catch A&P Assessment and plan (1) Partial small bowel obstruction: Plan Discontinued NG tube Clear liquid diet Conservative management for now I will be going out of town tomorrow and another surgeon will be taking over Medical management per hospitalist Attestations Medical Necessity Statement*: Per hospitalist Coding Level of Care Code Acute Code for Chg Fwd Diagnoses Partial small bowel obstruction K56.600
[2023-02-14] MEDS: budesonide 0.5 mg/2 mL Neb INHALATION ×2 (07:52→19:38)
[2023-02-14] MEDS: bumetanide 0.25 mg/mL SDV 4 mL 1 MG IVP ×2 (08:44→10:47)
--- NOTE | 2023-02-14 08:54 | PC.NURSE ---
Patient had 200ml out in NG suction. She also had 0 urine output. She is less alert this morning as compared to when I last saw her 48 hours ago.
--- NOTE | 2023-02-14 10:00 | ECG_ITS ---
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 Measurements Intervals [place] Rate: 77 P: 0 [place]: 0 QRS: 45 QRSD: 78 T: 120 QT: 284 QTc: 323 Interpretive Statements ATRIAL FIBRILLATION LOW QRS VOLTAGE [QRS DEFLECTION < 0.5/1.0 mV IN LIMB/CHEST LEADS] SEPTAL MYOCARDIAL INFARCTION , OF INDETERMINATE AGE [40+ ms Q WAVE IN V1/V2] Compared to ECG 02/13/2023 16:43:45 Right-axis deviation no longer present Myocardial infarct finding still present Electronically Signed On 02-14-2023 11:22:13 CDT by Yvonne Santamaria M.D. [id number]
[2023-02-14] MEDS: fluconazole premix 100 MG in empty flexible container 1 EACH 50 MG IV (10:48)
--- NOTE | 2023-02-14 12:21 | P.PN_ITS ---
Subjective Subjective: Overnight as per patient she had a rough night because she was having difficulty in breathing. She has remained on BiPAP. Today morning seen on 50% BiPAP. Later transitioned over to nasal cannula 4 L. Patient is awake and alert able to complete conversation. Patient possibly had 2 soft bowel movements small in size yesterday. States passing gas on and off. NG tube removed by surgical team today and started on clear liquid diets. Patient has had minimal urine output in last 24 hours. Has remained hemodynamically stable and afebrile. Blood work drawn today shows a hemoglobin of 8, white count of 14.4 which is trending down, INR stable at 2.5, BMP done shows sodium of 138, potassium of 5.4, creatinine worsened to 2.9, digoxin level 3.4 Medications: Reviewed: Yes Vitals/I&O/Wt Last Vital Signs Temp 97.9 F 02/14/23 08:36 Pulse 72 02/14/23 08:36 Resp 21 H 02/14/23 08:36 BP 143/67 02/14/23 08:36 Pulse Ox 97 02/14/23 08:36 O2 Del Method BiPAP 02/14/23 07:57 O2 Flow Rate 3 02/14/23 01:21 FiO2 60 02/14/23 11:53 02/13/23 02/14/23 02/14/23 22:59 06:59 14:59 Intake Total 350 / 500.1 518 / 1018.1 50 / 50 Output Total 150 / 150 270 / 270 Balance 200 / 350.1 518 / 868.1 -220 / -220 Physical Exam Narrative: General: No acute distress, AO x3, NC oxygen supplementation, chronically sick appearing, HEENT: PERRLA, pupils bilaterally equal and reactive Chest: Bronchial breath sounds b/l coarse crackles with occasional rhonchi all over lung long CVS: S1-S2 irregularly irregular, soft pansystolic murmur at apex this, no tachycardia, no gallops, no rubs Abdomen: Soft, distended, nontender, bowel sounds sluggish Neuro: No focal deficits, no facial deformity, AO x3, power 5/5 in all limbs Urinary Catheter Management: Monsalve: Cath Placed During This Visit: yes, but has since been removed by the nurse Reason for Continuing Indwelling Catheter: Decision to DC Catheter Urinary Catheter Date of Insertion: 01/25/23 Urinary Catheter Time of Insertion: 15:00 Date Urinary Catheter Removed: 02/11/23 Time Urinary Catheter Discontinued: 15:30 Data 02/14/23 05:27 02/14/23 14:15 Micro: Microbiology 02/13/23 09:15 Urine Culture - Preliminary Urine,Clean Catch A&P Assessment and plan (1) SBO (small bowel obstruction): Surgical recommendations appreciated. NG tube removed. Started on clear liquid diet. Bowel regimen. Continue to monitor intake and output. Out of bed to chair. IV Protonix, Zofran as needed. (2) Hyperkalemia: Repeat BMP in evening. If still elevated will repeat D50 and 10 units of insulin along with sodium bicarbonate. (3) KATHI (acute kidney injury): Creatinine continues to worsen. Patient did not tolerate fluid bolus well and went into respiratory distress with higher requirement of BiPAP. Bumex 1 mg one-time. Will monitor urine output. We will repeat BMP in evening. If has worsening of acidosis and creatinine depending on the urine output we will plan on Bumex drip. Continues to worsen, patient continues to remain anuric we will plan to consult nephrology. Appreciate urine studies from yesterday. (4) Respiratory failure with hypoxia: Resolved. Patient back to chronic hypoxic respiratory failure requiring 2 to 3 L of oxygen supplementation. Today about the same, on 3 L nasal cannula, feels comfortable. Slight worsening today because of IV fluids. Wean oxygen supplementation keeping saturation over 88%. Bumex as above. Continue BiPAP nightly and as needed. (5) Atrial fibrillation with RVR: Heart rate now remains controlled. Hold off on any further digoxin given hyperkalemia and KATHI. Digoxin level is elevated. Continue to monitor daily. Continue with IV amiodarone at 0.5. Continue with metoprolol IV as needed to 2.5 every 6 to be held if systolic blood pressures less than 110 mmHg. If patient tolerating clear liquid diet well we will switch to oral medications from tomorrow morning. (6) Supratherapeutic INR: Patient has a labile INR. Patient is supratherapeutic INR on presentation which had improved and then supratherapeutic again. Most likely in combination of medical interactions. Discussed in detail with patient. Patient would benefit from switching from Coumadin to NOAC. Patient verbalized understanding and is agreeable. Patient will follow-up as an outpatient with cardiology who is [address] provider and can get medication for cheaper. INR stable. Continue to hold off on heparin drip till INR remains more than 2. On discharge she will start on Eliquis 5 mg twice daily. Hold off on any further Coumadin. (7) Anemia: Acute on chronic. Most likely a combination of iron deficiency anemia along with anemia of chronic disease. No active sign of bleeding for now other than microscopic hematuria. Patient did have labile INR with occasional hematuria during the hospitalization. Target hemoglobin more than 8. Post 1 unit of blood transfusion. Continue to monitor hemoglobin daily. (8) Cellulitis: Stable. Continue wound care with zinc oxide. Frequent repositioning. Out of bed to chair. MRSA negative. Stop vancomycin. Finished Cefepime on 02/12. Continue fluconazole for 7-day course with last dose on 02/15. Lower extremities do not appear to have active cellulitis beyond chronic changes, ulceration on anterior medial right lower leg. 1cm spot of eschar on lateral second left toe, she states has had that spot for a while. Keep monitoring. Does not appear like necrosis. (9) CHF (congestive heart failure), NYHA class III: Bumex as above. Strict input output charting. Daily weights. Qualifiers: Congestive heart failure chronicity: acute on chronic Congestive heart failure type: diastolic Qualified Code(s): I50.33 - Acute on chronic diastolic (congestive) heart failure (10) Hyponatremia: Resolved (11) Wound, open, leg: (12) PAD (peripheral artery disease): (13) Hypertension: (14) Warfarin anticoagulation: (15) Carotid disease, bilateral: (16) COPD (chronic obstructive pulmonary disease): (17) Peripheral neuropathy: Plan Hematuria: Monsalve replaced yesterday after small bowel obstruction. Continue to monitor for hematuria. DNR/DNI. Regular diet. Supratherapeutic INR with suffice for DVT prophylaxis Protonix for PUD prophylaxis. Discharge plan: Discharge on hold given multiple active ongoing issues Patient's care plan discussed in detail with spouse and family members at bedside. All the questions were answered. CODE STATUS discussed in detail with patient again. She want to continue to remain DNR/DNI. Attestations Medical Necessity Statement*: Requires further hospitalization for management of small bowel obstruction, acute renal failure with developing anuria, digoxin elevated levels, A-fib with RVR, respiratory failure secondary to diastolic congestive heart failure Coding Level of Care Code Critical Care >/= 30 minutes Critical care time (in minutes): 50 The high probability of a clinically significant, sudden or life threatening deterioration, as referenced in this documentation, required my full and direct attention, intervention and personal management. The critical care time shown is in addition to time spent performing any reported separately billable procedures and includes the following: [x] Data and vital sign review and interpretation [x ] Patient assessment, examination and intervention [x] Medication orders and management [x] Patient/Family updates as able [x] Care Coordination and Documentation. Diagnoses SBO (small bowel obstruction) K56.609 Hyperkalemia E87.5 KATHI (acute kidney injury) N17.9 Respiratory failure with hypoxia J96.91 Atrial fibrillation with RVR I48.91 Supratherapeutic INR R79.1 Anemia D64.9 Cellulitis L03.90 CHF (congestive heart failure), NYHA class III I50.33 Congestive heart failure chronicity: acute on chronic Congestive heart failure type: diastolic Hyponatremia E87.1 Wound, open, leg S81.809A PAD (peripheral artery disease) I73.9 Hypertension I10 Warfarin anticoagulation Z79.01 Carotid disease, bilateral I77.9 COPD (chronic obstructive pulmonary disease) J44.9 Peripheral neuropathy G62.9
[2023-02-14] MEDS: magnesium hydroxide 30 mL UDC PO (14:45)
[2023-02-14 14:48] LABS: Anion Gap 18.1 (5-19); Blood Urea Nitrogen 71 mg/dL (8-23); Calcium 8.7 mg/dL (8.5-10.5); Carbon Dioxide 21 mmol/L (22-29); Chloride 102 mmol/L (98-107); Glucose 103 mg/dL (65-115); Osmolality Calculated 301 mOsm/kg (285-295); Potassium 6.1 mmol/L (3.5-5.1); Sodium 135 mmol/L (136-145)
[2023-02-14] MEDS: sodium bicarbonate 8.4% 1 mEq/mL 50mL Syr 100 MEQ IVP (16:18)
[2023-02-14] MEDS: bumetanide 25 MG in empty flexible container 1 EACH 4 MG IV (16:19)
[2023-02-14] MEDS: nystatin cream 30 gm 1 APPLIC TOPICAL (18:00)
[2023-02-14] MEDS: ropinirole 0.25 mg Tablet 0.5 MG PO (21:02)
[2023-02-14] MEDS: HYDROcodone-acetaminophen 5-325 mg Tablet 1 TAB PO (22:47)
[2023-02-15] VITALS (15 sets, daily range): BP systolic 117–128; BP diastolic 58–76; PULSE 79–102; RESP 14–28; TEMP 36.6–37; O2SAT 89–98
[2023-02-15] MEDS: levalbuterol 0.63 mg/3 mL Neb INHALATION ×4 (01:13→20:50)
[2023-02-15] MEDS: ipratropium 0.5 mg/2.5 mL Neb INHALATION ×4 (01:13→20:50)
[2023-02-15] MEDS: metoprolol tartrate 1 mg/1 mL SDV 5 mL 2.5 MG IVP ×3 (01:19→14:46)
[2023-02-15] MEDS: ondansetron 2 mg/ML SDV 2 mL 4 MG IVP ×2 (04:46→09:33)
[2023-02-15 05:40] LABS: Basophils # 0.1 10^3/uL (0.0-0.1); Basophils % 0.8 %; Eosinophils # 0.5 10^3/uL (0.0-0.8); Eosinophils % 3.7 %; Hematocrit 28.8 % (37.0-47.0); Hemoglobin 8.4 g/dL (11.5-15.3); Lymphocytes % 7.3 %; Mean Corpuscular HGB Conc 29.2 g/dL (30.0-36.0); Mean Corpuscular Hemoglobin 26.3 pg (28.0-34.0); Mean Platelet Volume 11.3 fL (7.4-10.4); Monocytes # 0.8 10^3/uL (0.2-0.9); Monocytes % 6.2 %; Neutrophils # 10.66 10^3/uL (1.8-7.7); Neutrophils % 80.6 %; Nucleated Red Blood Cells % 0 %; Platelet Count 228 10^3/cmm (130-400); Red Cell Distribution Width 17.5 % (12.1-15.1); White Blood Count 13.2 10^3/uL (4.0-10.0)
[2023-02-15 05:54] LABS: INR 2.43 (0.8-1.2)
[2023-02-15 05:57] LABS: Alanine Aminotransferase 41 U/L (0-33); Albumin Level 3.2 g/dL (3.5-5.2); Alkaline Phosphatase 154 U/L (35-105); Anion Gap 19.5 (5-19); Aspartate Amino Transferase 53 U/L (0-32); Blood Urea Nitrogen 75 mg/dL (8-23); Calcium 8.7 mg/dL (8.5-10.5); Carbon Dioxide 24 mmol/L (22-29); Chloride 99 mmol/L (98-107); Globulin 3.1 g/dL (1.3-4.6); Glucose 79 mg/dL (65-115); Osmolality Calculated 305 mOsm/kg (285-295); Potassium 5.5 mmol/L (3.5-5.1); Sodium 137 mmol/L (136-145); Total Bilirubin 0.7 mg/dL (0.15-1.2); Total Protein 6.3 g/dL (6.6-8.7)
[2023-02-15 06:05] LABS: Digoxin 3.5 ng/mL (0.6-1.2)
[2023-02-15] MEDS: pantoprazole 40 mg SDV IVP ×2 (06:17→18:34)
[2023-02-15] MEDS: budesonide 0.5 mg/2 mL Neb INHALATION ×2 (08:08→20:50)
--- NOTE | 2023-02-15 09:06 | XR_ITS ---
WS: [id number] Exam: XR acute abdomen series [id number] Date/Time of Exam: 02/15/2023 12:45 PM Reason For Exam: Sbo Comparison 02/13/2023. AP chest. Bibasal pleural effusions are unchanged. Cardiac enlargement with pulmonary vascular engorg ement shows little change. An enteric tube extends into the stomach. A right-sided PICC line ends in the lower one third of the SVC. Abdomen. Again noted are numerous dilated small bowel loops in the midabdomen essentially unchanged. There is some gas in the colon and rectum. Organ margins are obscured. Signs of vertebral plasty invo lving the lower lumbar and lower thoracic spine. XR/XR acute abdomen series [id number] IMPRESSION: 1. Cardiac enlargement with pulmonary vascular congestion and bibasal pleural e ffusions unchanged. 2. Continued small bowel dilatation suspicious for partial or incomplete small bowel obstruction. There is a small amount of scattered gas in the large bowel. There is also gas in the stomach. Overall, very little change.
[2023-02-15] MEDS: lidocaine 5% Patch 1 PATCH TOPICAL (09:40)
[2023-02-15] MEDS: metOLazone 5 MG Tablet PO (09:40)
[2023-02-15] MEDS: sodium bicarbonate 8.4% 1 mEq/mL 50mL Syr 100 MEQ IVP (09:49)
--- NOTE | 2023-02-15 09:57 | ECG_ITS ---
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 Measurements Intervals [place] Rate: 85 P: 0 [place]: 0 QRS: 55 QRSD: 71 T: -48 QT: 256 QTc: 305 Interpretive Statements ATRIAL FIBRILLATION LOW QRS VOLTAGE IN PRECORDIAL LEADS [QRS DEFLECTION < 1.0 mV IN CHEST LEADS] SEPTAL MYOCARDIAL INFARCTION , PROBABLY OLD [40+ ms Q WAVE IN V1/V2] Compared to ECG 02/14/2023 10:21:38 No significant changes Electronically Signed On 02-15-2023 15:58:43 CDT by Itz Hale M.D. [id number]
[2023-02-15] MEDS: sodium chloride 0.9% 500 ML 100 ML IV (10:11)
[2023-02-15] MEDS: fluconazole premix 100 MG in empty flexible container 1 EACH 50 MG IV (10:46)
--- NOTE | 2023-02-15 11:52 | PM.PN ---
Subjective Subjective: Patient vomited overnight. Her abdomen is mildly distended, but she says it has been like that for years now. She now reports that she is not passing flatus or having bowel movements. Vitals/I&O/Wt Last Vital Signs Temp 98.0 F 02/15/23 09:45 Pulse 80 02/15/23 09:45 Resp 27 H 02/15/23 09:45 BP 123/72 02/15/23 09:45 Pulse Ox 90 02/15/23 09:45 O2 Del Method Nasal Cannula 02/15/23 09:45 O2 Flow Rate 3 02/15/23 09:45 FiO2 50 02/15/23 01:14 02/14/23 02/15/23 02/15/23 22:59 06:59 14:59 Output Total 225 / 495 200 / 695 450 / 450 Balance -225 / -445 -200 / -645 -450 / -450 Weight last 48 hrs Weight 197 lb 8 oz Weight 199 lb 5 oz Physical Exam Narrative: General: No acute distress, awake alert and oriented x3 Abdomen: Soft, mild distention, mild diffuse tenderness, no guarding rebound or masses Urinary Catheter Management: Monsalve: Cath Placed During This Visit: yes, but has since been removed by the nurse Reason for Continuing Indwelling Catheter: Decision to DC Catheter Urinary Catheter Date of Insertion: 01/25/23 Urinary Catheter Time of Insertion: 15:00 Date Urinary Catheter Removed: 02/11/23 Time Urinary Catheter Discontinued: 15:30 Data 02/15/23 05:15 02/15/23 05:15 Micro: Microbiology 02/13/23 09:15 Urine Culture - Preliminary Urine,Clean Catch A&P Assessment and plan (1) SBO (small bowel obstruction): Plan Replace NG tube Just while to suction Conservative management for now I will be going out of town today and Dr. Huynh will be taking over surgical care Medical management per hospitalist Attestations Medical Necessity Statement*: per primary Coding Level of Care Code 93106 Diagnoses SBO (small bowel obstruction) K56.609
--- NOTE | 2023-02-15 12:50 | PC.SOCIAL ---
IMM update IMM updated with patient. Verbalized an understanding. Copy PG 2 provided. Initialled, dated, timed, and placed in chart.
--- NOTE | 2023-02-15 15:33 | P.PN_ITS ---
Subjective Subjective: Seen multiple times today. Today morning patient seen sitting up in chair. Patient having episodes of emesis. Vomitus is bilious in nature. Patient states breathing is stable. Continues to remain on Bumex and amiodarone drip. With concerns for small bowel obstruction NG tube was replaced. Documented urine output of 695 overnight last 24 hours. Patient was started on slow gentle IV hydration after which she developed respiratory distress and was placed back on BiPAP. Overall patient is euvolemic since admission. Blood work shows stable CBC with a hemoglobin of 8.4, white count of 13.2, INR of 2.43, BMP showing a sodium 137, potassium of 5.5, creatinine still elevated to 3.5 with a BUN of 75, elevation of liver enzymes with a digoxin level of 3.5. Medications: Reviewed: Yes Vitals/I&O/Wt Last Vital Signs Temp 98.6 F 02/15/23 12:00 Pulse 81 02/15/23 15:20 Resp 17 02/15/23 13:34 BP 128/64 02/15/23 12:00 Pulse Ox 94 02/15/23 15:20 O2 Del Method Nasal Cannula 02/15/23 13:34 O2 Flow Rate 3 02/15/23 12:00 FiO2 35 02/15/23 15:20 02/15/23 02/15/23 02/15/23 06:59 14:59 22:59 Intake Total 460.000 / 460.000 Output Total 200 / 695 450 / 450 Balance -200 / -645 10.000 / 10.000 Weight last 48 hrs Weight 89.584 kg Weight 90.407 kg Physical Exam Narrative: General: No acute distress, AO x3, NC oxygen supplementation, chronically sick appearing, HEENT: PERRLA, pupils bilaterally equal and reactive Chest: Bronchial breath sounds b/l coarse crackles with occasional rhonchi all over lung long CVS: S1-S2 irregularly irregular, soft pansystolic murmur at apex this, no tachycardia, no gallops, no rubs Abdomen: Soft, distended, nontender, bowel sounds sluggish Neuro: No focal deficits, no facial deformity, AO x3, power 5/5 in all limbs Urinary Catheter Management: Monsalve: Cath Placed During This Visit: yes, but has since been removed by the nurse Reason for Continuing Indwelling Catheter: Decision to DC Catheter Urinary Catheter Date of Insertion: 01/25/23 Urinary Catheter Time of Insertion: 15:00 Date Urinary Catheter Removed: 02/11/23 Time Urinary Catheter Discontinued: 15:30 Data 02/15/23 05:15 02/15/23 05:15 Micro: Microbiology 02/13/23 09:15 Urine Culture - Final Urine,Clean Catch A&P Assessment and plan (1) SBO (small bowel obstruction): NG tube was removed by surgery yesterday. Patient again having nausea and vomiting. NG tube replaced. Abdominal series. NPO. Out of bed to chair. IV Protonix, Zofran as needed. (2) Hyperkalemia: Repeat BMP in evening. If still elevated will repeat D50 and 10 units of insulin along with sodium bicarbonate. (3) KATHI (acute kidney injury): Creatinine continues to worsen. Patient did not tolerate fluid bolus well and went into respiratory distress with higher requirement of BiPAP. Continue with Bumex drip. Patient continues to have poor urine output with elevated digoxin levels. Will consult nephrology for possible need of dialysis. Discussed in detail with the patient. She is agreeable to a short-term dialysis if needed. Will await nephrology recommendations before consulting surgery for temporary dialysis catheter placement. Patient remains oliguric. Repeat BMP in evening to monitor potassium and creatinine. (4) Respiratory failure with hypoxia: Resolved. Patient back to chronic hypoxic respiratory failure requiring 2 to 3 L of oxygen supplementation. Today about the same, on 3 L nasal cannula, feels comfortable. Slight worsening today because of IV fluids. Wean oxygen supplementation keeping saturation over 88%. Bumex as above. Continue BiPAP nightly and as needed. (5) Atrial fibrillation with RVR: Heart rate now remains controlled. Hold off on any further digoxin given hyperkalemia and KATHI. Digoxin level is elevated. Continue to monitor daily. Continue with IV amiodarone at 0.5. Continue with metoprolol IV as needed to 2.5 every 6 to be held if systolic blood pressures less than 110 mmHg. If patient tolerating clear liquid diet well we will switch to oral medications from tomorrow morning. (6) Supratherapeutic INR: Patient has a labile INR. Patient is supratherapeutic INR on presentation which had improved and then supratherapeutic again. Most likely in combination of medical interactions. Discussed in detail with patient. Patient would benefit from switching from Coumadin to NOAC. Patient verbalized understanding and is agreeable. Patient will follow-up as an outpatient with cardiology who is [address] provider and can get medication for cheaper. INR stable. Continue to hold off on heparin drip till INR remains more than 2. On discharge she will start on Eliquis 5 mg twice daily. Hold off on any further Coumadin. (7) Anemia: Acute on chronic. Most likely a combination of iron deficiency anemia along with anemia of chronic disease. No active sign of bleeding for now other than microscopic hematuria. Patient did have labile INR with occasional hematuria during the hospitalization. Target hemoglobin more than 8. Post 1 unit of blood transfusion. Continue to monitor hemoglobin daily. (8) Cellulitis: Stable. Continue wound care with zinc oxide. Frequent repositioning. Out of bed to chair. MRSA negative. Stop vancomycin. Finished Cefepime on 02/12. Continue fluconazole for 7-day course with last dose on 02/15. Lower extremities do not appear to have active cellulitis beyond chronic changes, ulceration on anterior medial right lower leg. 1cm spot of eschar on lateral second left toe, she states has had that spot for a while. Keep monitoring. Does not appear like necrosis. (9) CHF (congestive heart failure), NYHA class III: Bumex as above. Add 1 dose of metolazone 5 mg. Strict input output charting. Daily weights. Qualifiers: Congestive heart failure chronicity: acute on chronic Congestive heart failure type: diastolic Qualified Code(s): I50.33 - Acute on chronic diastolic (congestive) heart failure (10) Hyponatremia: Resolved (11) Wound, open, leg: (12) PAD (peripheral artery disease): (13) Hypertension: (14) Warfarin anticoagulation: (15) Carotid disease, bilateral: (16) COPD (chronic obstructive pulmonary disease): (17) Peripheral neuropathy: Plan Hematuria: Monsalve replaced yesterday after small bowel obstruction. Continue to monitor for hematuria. DNR/DNI. Regular diet. Supratherapeutic INR with suffice for DVT prophylaxis Protonix for PUD prophylaxis. Discharge plan: Discharge on hold given multiple active ongoing issues Patient's care plan discussed in detail with spouse and family members at bedside. All the questions were answered. CODE STATUS discussed in detail with patient again. She want to continue to remain DNR/DNI. Attestations Medical Necessity Statement*: Requires further hospitalization for management of small bowel obstruction, acute kidney injury with oliguria with possible need of dialysis, atrial fibrillation, diastolic congestive heart failure Coding Level of Care Code Critical Care >/= 30 minutes Critical care time (in minutes): 60 The high probability of a clinically significant, sudden or life threatening deterioration, as referenced in this documentation, required my full and direct attention, intervention and personal management. The critical care time shown is in addition to time spent performing any reported separately billable procedures and includes the following: [x] Data and vital sign review and interpretation [x ] Patient assessment, examination and intervention [x] Medication orders and management [x] Patient/Family updates as able [x] Care Coordination and Documentation. Diagnoses SBO (small bowel obstruction) K56.609 Hyperkalemia E87.5 KATHI (acute kidney injury) N17.9 Respiratory failure with hypoxia J96.91 Atrial fibrillation with RVR I48.91 Supratherapeutic INR R79.1 Anemia D64.9 Cellulitis L03.90 CHF (congestive heart failure), NYHA class III I50.33 Congestive heart failure chronicity: acute on chronic Congestive heart failure type: diastolic Hyponatremia E87.1 Wound, open, leg S81.809A PAD (peripheral artery disease) I73.9 Hypertension I10 Warfarin anticoagulation Z79.01 Carotid disease, bilateral I77.9 COPD (chronic obstructive pulmonary disease) J44.9 Peripheral neuropathy G62.9
[2023-02-15 15:57] LABS: Anion Gap 20.6 (5-19); Blood Urea Nitrogen 76 mg/dL (8-23); Calcium 8.5 mg/dL (8.5-10.5); Carbon Dioxide 24 mmol/L (22-29); Chloride 98 mmol/L (98-107); Glucose 105 mg/dL (65-115); Osmolality Calculated 307 mOsm/kg (285-295); Potassium 5.6 mmol/L (3.5-5.1); Sodium 137 mmol/L (136-145)
--- NOTE | 2023-02-15 17:56 | P.CONIM_ITS ---
Providers/Reason For Consult Consulting Physician/Specialty*: [facility]/Nephrology Reason for Consult*: Acute on CKD Attending Physician: Drew Richardson MD Primary Care Provider: Gurwinder Lomeli DO History of Present Illness History of Present Illness Nimo Pressley is a 72 year old female Patient is a 72-year-old female with past medical history of hypertension, dyslipidemia , A-fib on Coumadin and, CHF, history of carotid endarterectomy, femoral, popliteal bypass, COPD, chronic kidney disease with a creatinine baseline in the 1.1-1.4 range presented to the emergency department due to shortness of breath. patient was found to be in A- fib with rapid response. Patient noted to have worsening lower extremity edema. Patient creatinine is one-point on presentation but was 3.6 currently with persistent hyperkalemia. Also has elevated BUN. During the hospital course patient has developed a small bowel obstruction followed by surgeons. She is currently on BiPAP. Patient also received a dose digoxin for A-fib with rapid response 90 beats levels are still elevated at 3.5 currently. Also received antibiotics for lower extremity cellulitis. For volume overload patient was laced on Bumex drip as well as metolazone with no significant response. Patient is volume overloaded Review of Systems Narrative: unable to obtain Medications/Allergies Home Medications Medication Instructions Recorded Confirmed Last Taken Type albuterol sulfate 90 mcg/actuation 1 puff inhalation QID PRN 04/26/21 01/25/23 02/26/22 Rx aerosol inhaler shortness of breath or wheezing #8.5 grams hydrocodone 5 mg-acetaminophen 325 1 tab PO Q4H PRN pain 5 days #30 04/10/22 01/25/23 05/27/22 20:00 Rx mg tablet tabs aspirin 81 mg capsule 81 mg PO DAILY 05/28/22 01/25/23 01/24/23 History bumetanide 2 mg tablet 2 mg PO BID #180 tabs 06/05/22 01/25/23 01/24/23 Rx carvedilol 6.25 mg tablet 6.25 mg PO BID #180 tabs 06/05/22 01/25/23 01/25/23 Rx metolazone 2.5 mg tablet 2.5 mg PO .every other day #90 tabs 06/05/22 01/25/23 01/23/23 Rx spironolactone 25 mg tablet 25 mg PO DAILY #90 tabs 06/05/22 01/25/23 01/25/23 Rx famotidine 20 mg tablet (Pepcid AC) 20 mg PO DAILY #90 tabs 08/23/22 01/25/23 01/25/23 Rx magnesium L-lactate 84 mg 250 mg PO BID 09/15/22 01/25/23 01/24/23 History tablet,extended release potassium chloride 20 mEq 40 meq PO DAILY 09/15/22 01/25/23 01/24/23 History tablet,extended release calamine 3 %-zinc oxide 3 %-gauze #10 ea 09/20/22 01/25/23 Unknown Rx bandage 3 X 10 yard (Unna Boot Zinc-Calamine) atorvastatin 80 mg tablet 80 mg PO QPM 01/25/23 01/25/23 01/24/23 History warfarin 4 mg tablet See Rx Instructions .Route .COMPLEX 01/25/23 01/25/23 01/24/23 History Allergies Allergy/AdvReac Type Severity Reaction Status Date / Time nkda Allergy Unknown Unknown Uncoded 01/24/23 13:14 Current Medications Generic Name Dose Route Start Last Admin Trade Name Freq PRN Reason Stop Dose Admin Acetaminophen 650 mg 01/25/23 13:10 02/09/23 09:23 Acetaminophen 325 Mg Tablet PO 650 mg Q6H PRN Administration Mild/Mod Pain Or Temp >/= 101 Hydrocodone Bitart/Acetaminophen 1 tab 02/07/23 20:07 02/14/23 22:47 Hydrocodone-Acetaminophen 5-325 Mg Tablet PO 1 tab Q4H PRN Administration MODERATE PAIN Alprazolam 0.25 mg 02/12/23 12:38 02/14/23 04:05 Alprazolam 0.5 Mg Tablet PO 0.25 mg BID PRN Administration ANXIETY Amiodarone HCl 200 mg 02/11/23 09:00 02/12/23 08:16 Amiodarone 200 Mg Tablet PO 200 mg DAILY ETHAN Administration Aspirin 81 mg 01/26/23 09:00 02/12/23 08:16 Aspirin 81 Mg Chew Tablet PO 81 mg DAILY ETHAN Administration Atorvastatin Calcium 80 mg 01/25/23 18:00 02/11/23 17:57 Atorvastatin 40 Mg Tablet PO 80 mg QPM ETHAN Administration Budesonide 0.5 mg 01/28/23 20:00 02/15/23 08:08 Budesonide 0.5 Mg/2 Ml Neb INHALATION 0.5 mg BID.RESPIRATORY ETHAN Administration Denture Adhesive 1 applic 01/30/23 09:06 01/30/23 18:41 Fixodent 39 Gm Tube DENTAL 1 applic PRN PRN Administration denture adhesive Fluticasone Propionate 2 spray 01/28/23 09:00 02/15/23 13:39 Fluticasone Nasal [place] 16gm Btl NASAL Not Given DAILY ETHAN Amiodarone HCl 900 mg/ 518 mls @ 17.267 mls/hr 02/12/23 16:30 02/14/23 03:06 Dextrose/ IV Miscellaneous IV 0.5 mg/min Supplies CONT ETHAN 17.27 mls/hr Administration 0.5 MG/MIN Fluconazole 100 mg/ N/A 50 mls @ 50 mls/hr 02/13/23 09:30 02/15/23 10:46 IV 02/16/23 09:29 50 mls/hr Q24H ETHAN Administration Bumetanide 20 mg/ N/A 80 mls @ 4 mls/hr 02/15/23 15:30 02/15/23 15:56 IV 02/16/23 11:29 1 mg/hr .Q20H ETHAN 4 mls/hr Administration 1 MG/HR Ipratropium [place] 0.5 mg 01/28/23 14:00 02/15/23 13:29 Ipratropium 0.5 Mg/2.5 Ml Neb INHALATION 0.5 mg Q6H.RESP ETHAN Administration Levalbuterol HCl 0.63 mg 01/28/23 14:00 02/15/23 13:29 Levalbuterol 0.63 Mg/3 Ml Neb INHALATION 0.63 mg Q6H.RESP ETHAN Administration Lidocaine 1 patch 02/10/23 21:00 02/15/23 09:40 Lidocaine 5% Patch TOPICAL 1 patch [id number] ETHAN Administration Magnesium Hydroxide 30 ml 02/11/23 09:02 02/14/23 14:45 Magnesium Hydroxide 30 Ml Udc PO 30 ml DAILY PRN Administration CONSTIPATION Metolazone 5 mg 02/15/23 09:00 02/15/23 09:40 Metolazone 5 Mg Tablet PO 5 mg DAILY ETHAN Administration Metoprolol Tartrate 25 mg 01/30/23 09:05 02/12/23 08:16 Metoprolol Tartrate 25 Mg Tablet PO 25 mg BID@0900,2100 ETHAN Administration Metoprolol Tartrate 2.5 mg 02/13/23 20:00 02/15/23 14:46 Metoprolol Tartrate 1 Mg/1 Ml Sdv 5 Ml IVP 2.5 mg Q6H ETHAN Administration Nystatin 1 applic 02/05/23 12:25 02/15/23 10:59 Nystatin Cream 30 Gm TOPICAL Not Given BID ETHAN Ondansetron HCl 4 mg 01/25/23 13:38 02/15/23 09:33 Ondansetron 2 Mg/Ml Sdv 2 Ml IVP 4 mg Q8H PRN Administration vomiting, or N/V if npo Pantoprazole Sodium 40 mg 02/12/23 18:00 02/15/23 06:17 Pantoprazole 40 Mg Sdv IVP 40 mg Q12H ETHAN Administration Ropinirole HCl 0.5 mg 01/28/23 21:00 02/14/23 21:02 Ropinirole 0.25 Mg Tablet PO 0.5 mg BEDTIME ETHAN Administration PFSH Acute PFSH: Medical History Abdominal distention Acute hyponatremia Carotid artery stenosis Carotid disease, bilateral Cellulitis Chest pain CHF (congestive heart failure), NYHA class III Diastolic heart failure with EF of 55 to 60% COPD (chronic obstructive pulmonary disease) Dyslipidemia Femoral artery occlusion Hypertension Lymphedema of both lower extremities PAD (peripheral artery disease) Peripheral edema Peripheral vascular disease Respiratory failure Smoker SOB (shortness of breath) Superficial femoral artery occlusion TIA (transient ischemic attack) Uncontrolled hypertension Venous stasis dermatitis of right lower extremity Surgical History S/P peripheral artery angioplasty with stent placement S/P vascular surgery Status post carotid surgery (~2012) bilateral Family History Other CAD (coronary artery disease) Social History Smoking and tobacco status: former smoker Quit status (tobacco): considering quitting Second hand smoke exposure: Yes Alcohol intake: never Substance/Drug Use: never Caregiver/support person: Yes Lives independently: Yes Household members: spouse Marital status: service: No Current occupational status: retired Current gender identity: Female Vitals/I&O/Wt Last Vital Signs Temp 98.1 F 02/15/23 16:15 Pulse 82 02/15/23 16:15 Resp 14 02/15/23 16:15 BP 125/61 02/15/23 16:15 Pulse Ox 94 02/15/23 16:15 O2 Del Method BiPAP 02/15/23 16:15 O2 Flow Rate 3 02/15/23 12:00 FiO2 35 02/15/23 15:20 02/15/23 02/15/23 02/15/23 06:59 14:59 22:59 Intake Total 460.000 / 460.000 Output Total 200 / 695 450 / 450 Balance -200 / -645 10.000 / 10.000 Weight last 48 hrs Weight 89.584 kg Weight 90.407 kg Physical Exam Narrative: awake , alert , no distress HEENT S1S2 RRR per report Crackles per report + LEedema Urinary Catheter Management: Monsalve: Cath Placed During This Visit: yes, but has since been removed by the nurse Reason for Continuing Indwelling Catheter: Decision to DC Catheter Urinary Catheter Date of Insertion: 01/25/23 Urinary Catheter Time of Insertion: 15:00 Date Urinary Catheter Removed: 02/11/23 Time Urinary Catheter Discontinued: 15:30 Data 02/15/23 05:15 02/15/23 15:25 Micro: Microbiology 02/13/23 09:15 Urine Culture - Final Urine,Clean Catch A&P Assessment and plan (1) KATHI (acute kidney injury): Plan 1. Acute on chronic kidney disease: Creatinine baseline in the mid 1 range. Current KATHI likely multifactorial-possible ATN due to acute infection, toxicity, possible cardiorenal. Patient has persistent hyperkalemia and volume overload with no response to diuretics at this point. -Requested temporary hemodialysis catheter placement with plan on dialysis today -Reassess daily for HD needs. 2. Persistent hyperkalemia , multifactorial from KATHI and digitoxicity 3. CHF: On Bumex drip with poor response at this time, HD as above 4. Acute on chronic respiratory failure: On BiPAP 6. Right extremity cellulitis 7. A-fib with RVR 8. Small bowel obstruction, followed by surgery Patient evaluated using audiovisual cart. Time spent 45 minutes Consult Attestations Medical Necessity Statement: per medicine Coding Level of Care Code Acute Code for Chg Fwd Diagnoses KATHI (acute kidney injury) N17.9
--- NOTE | 2023-02-15 18:32 | SC_ITS ---
WS: [id number] C-ARM RADIOGRAPHS CHEST; 3 IMAGES HISTORY: placement of dialysis catheter in OR now COMPARISON: None available. Intraoperative imaging during dialysis catheter placement. Dialysis catheter overlies the RIGHT upper thorax. Nasogastric tube is present. SC/C-arm [place] for CVA [id number] IMPRESSION: Intraoperative imaging during dialysis catheter placement.
--- NOTE | 2023-02-15 18:36 | PM.CONSULT ---
Providers/Reason For Consult Consulting Physician/Specialty*: Corby Huynh MD general surgery Reason for Consult*: placement of dialysis catheter Requesting Physician: drew richardson Attending Physician: Drew Richardson MD Primary Care Provider: Gurwinder Lomeli DO History of Present Illness History of Present Illness Nimo Pressley is a 72 year old female admitted about 3 weeks ago with CHF and now with partial SBO with NG tube and acute ATN and elevated potassium and digitalis levels and needs dialysis. Hospitalist talked to patient and family and they are willing to proceed with catheter placement. Dialysis presumably to be done tonight or tomorrow sometime. Review of Systems Narrative: Constitutional: denies rigors, significant weight gain, increased appetite HEENT: denies chronic cough, blurry vision, excessive tearing, eye pain, flashing lights, odynophagia, painful mastication, change in voice, change in taste, chronic sore throat, hypersalivation Heart: denies racing heart, palpitations, orthopnea, PND Lungs: denies hemoptysis, pain with deep inspiration, chronic bronchitis GI: denies hematemesis, hematochezia, dysphagia, tenesmus : denies, phyuria, hematuria, painful micturation Musculoskeletal: denies hemarthosis, muscle wasting, change in ambulation Neuro: denies new onset syncope, dysesthesia, dysequilibrium, ptosis of eyelid or face Skin: denies new onset hyperalgia, new rash, new cyanosis Endocrine: denies new polyuria, polydipsia, polyphagia, heat intolerance, excessive energy Hem/onc: denies new petechiae, swollen glands, new excessive epistaxis Psych: denies racing thoughts Medications/Allergies Home Medications Medication Instructions Recorded Confirmed Last Taken Type albuterol sulfate 90 mcg/actuation 1 puff inhalation QID PRN 04/26/21 01/25/23 02/26/22 Rx aerosol inhaler shortness of breath or wheezing #8.5 grams hydrocodone 5 mg-acetaminophen 325 1 tab PO Q4H PRN pain 5 days #30 04/10/22 01/25/23 05/27/22 20:00 Rx mg tablet tabs aspirin 81 mg capsule 81 mg PO DAILY 05/28/22 01/25/23 01/24/23 History bumetanide 2 mg tablet 2 mg PO BID #180 tabs 06/05/22 01/25/23 01/24/23 Rx carvedilol 6.25 mg tablet 6.25 mg PO BID #180 tabs 06/05/22 01/25/23 01/25/23 Rx metolazone 2.5 mg tablet 2.5 mg PO .every other day #90 tabs 06/05/22 01/25/23 01/23/23 Rx spironolactone 25 mg tablet 25 mg PO DAILY #90 tabs 06/05/22 01/25/23 01/25/23 Rx famotidine 20 mg tablet (Pepcid AC) 20 mg PO DAILY #90 tabs 08/23/22 01/25/23 01/25/23 Rx magnesium L-lactate 84 mg 250 mg PO BID 09/15/22 01/25/23 01/24/23 History tablet,extended release potassium chloride 20 mEq 40 meq PO DAILY 09/15/22 01/25/23 01/24/23 History tablet,extended release calamine 3 %-zinc oxide 3 %-gauze #10 ea 09/20/22 01/25/23 Unknown Rx bandage 3 X 10 yard (Unna Boot Zinc-Calamine) atorvastatin 80 mg tablet 80 mg PO QPM 01/25/23 01/25/23 01/24/23 History warfarin 4 mg tablet See Rx Instructions .Route .COMPLEX 01/25/23 01/25/23 01/24/23 History Allergies Allergy/AdvReac Type Severity Reaction Status Date / Time nkda Allergy Unknown Unknown Uncoded 01/24/23 13:14 Current Medications Generic Name Dose Route Start Last Admin Trade Name Freq PRN Reason Stop Dose Admin Acetaminophen 650 mg 01/25/23 13:10 02/09/23 09:23 Acetaminophen 325 Mg Tablet PO 650 mg Q6H PRN Administration Mild/Mod Pain Or Temp >/= 101 Hydrocodone Bitart/Acetaminophen 1 tab 02/07/23 20:07 02/14/23 22:47 Hydrocodone-Acetaminophen 5-325 Mg Tablet PO 1 tab Q4H PRN Administration MODERATE PAIN Alprazolam 0.25 mg 02/12/23 12:38 02/14/23 04:05 Alprazolam 0.5 Mg Tablet PO 0.25 mg BID PRN Administration ANXIETY Amiodarone HCl 200 mg 02/11/23 09:00 02/12/23 08:16 Amiodarone 200 Mg Tablet PO 200 mg DAILY ETHAN Administration Aspirin 81 mg 01/26/23 09:00 02/12/23 08:16 Aspirin 81 Mg Chew Tablet PO 81 mg DAILY ETHAN Administration Atorvastatin Calcium 80 mg 01/25/23 18:00 02/11/23 17:57 Atorvastatin 40 Mg Tablet PO 80 mg QPM ETHAN Administration Budesonide 0.5 mg 01/28/23 20:00 02/15/23 08:08 Budesonide 0.5 Mg/2 Ml Neb INHALATION 0.5 mg BID.RESPIRATORY ETHAN Administration Denture Adhesive 1 applic 01/30/23 09:06 01/30/23 18:41 Fixodent 39 Gm Tube DENTAL 1 applic PRN PRN Administration denture adhesive Fluticasone Propionate 2 spray 01/28/23 09:00 02/15/23 13:39 Fluticasone Nasal [place] 16gm Btl NASAL Not Given DAILY ETHAN Amiodarone HCl 900 mg/ 518 mls @ 17.267 mls/hr 02/12/23 16:30 02/15/23 18:33 Dextrose/ IV Miscellaneous IV 0.5 mg/min Supplies CONT ETHAN 17.27 mls/hr Administration 0.5 MG/MIN Fluconazole 100 mg/ N/A 50 mls @ 50 mls/hr 02/13/23 09:30 02/15/23 10:46 IV 02/16/23 09:29 50 mls/hr Q24H ETHAN Administration Bumetanide 20 mg/ N/A 80 mls @ 4 mls/hr 02/15/23 15:30 02/15/23 15:56 IV 02/16/23 11:29 1 mg/hr .Q20H ETHAN 4 mls/hr Administration 1 MG/HR Ipratropium [place] 0.5 mg 01/28/23 14:00 02/15/23 13:29 Ipratropium 0.5 Mg/2.5 Ml Neb INHALATION 0.5 mg Q6H.RESP ETHAN Administration Levalbuterol HCl 0.63 mg 01/28/23 14:00 02/15/23 13:29 Levalbuterol 0.63 Mg/3 Ml Neb INHALATION 0.63 mg Q6H.RESP ETHAN Administration Lidocaine 1 patch 02/10/23 21:00 02/15/23 09:40 Lidocaine 5% Patch TOPICAL 1 patch [id number] ETHAN Administration Magnesium Hydroxide 30 ml 02/11/23 09:02 02/14/23 14:45 Magnesium Hydroxide 30 Ml Udc PO 30 ml DAILY PRN Administration CONSTIPATION Metolazone 5 mg 02/15/23 09:00 02/15/23 09:40 Metolazone 5 Mg Tablet PO 5 mg DAILY ETHAN Administration Metoprolol Tartrate 25 mg 01/30/23 09:05 02/12/23 08:16 Metoprolol Tartrate 25 Mg Tablet PO 25 mg BID@0900,2100 ETHAN Administration Metoprolol Tartrate 2.5 mg 02/13/23 20:00 02/15/23 14:46 Metoprolol Tartrate 1 Mg/1 Ml Sdv 5 Ml IVP 2.5 mg Q6H ETHAN Administration Nystatin 1 applic 02/05/23 12:25 02/15/23 10:59 Nystatin Cream 30 Gm TOPICAL Not Given BID ETHAN Ondansetron HCl 4 mg 01/25/23 13:38 02/15/23 09:33 Ondansetron 2 Mg/Ml Sdv 2 Ml IVP 4 mg Q8H PRN Administration vomiting, or N/V if npo Pantoprazole Sodium 40 mg 02/12/23 18:00 02/15/23 18:34 Pantoprazole 40 Mg Sdv IVP 40 mg Q12H ETHAN Administration Ropinirole HCl 0.5 mg 01/28/23 21:00 02/14/23 21:02 Ropinirole 0.25 Mg Tablet PO 0.5 mg BEDTIME ETHAN Administration PFSH Acute PFSH: Medical History Abdominal distention Acute hyponatremia Carotid artery stenosis Carotid disease, bilateral Cellulitis Chest pain CHF (congestive heart failure), NYHA class III Diastolic heart failure with EF of 55 to 60% COPD (chronic obstructive pulmonary disease) Dyslipidemia Femoral artery occlusion Hypertension Lymphedema of both lower extremities PAD (peripheral artery disease) Peripheral edema Peripheral vascular disease Respiratory failure Smoker SOB (shortness of breath) Superficial femoral artery occlusion TIA (transient ischemic attack) Uncontrolled hypertension Venous stasis dermatitis of right lower extremity Surgical History S/P peripheral artery angioplasty with stent placement S/P vascular surgery Status post carotid surgery (~2012) bilateral Family History Other CAD (coronary artery disease) Social History Smoking and tobacco status: former smoker Quit status (tobacco): considering quitting Second hand smoke exposure: Yes Alcohol intake: never Substance/Drug Use: never Caregiver/support person: Yes Lives independently: Yes Household members: spouse Marital status: service: No Current occupational status: retired Current gender identity: Female Vitals/I&O/Wt Last Vital Signs Temp 98.1 F 02/15/23 16:15 Pulse 82 02/15/23 16:15 Resp 14 02/15/23 16:15 BP 125/61 02/15/23 16:15 Pulse Ox 94 02/15/23 16:15 O2 Del Method BiPAP 02/15/23 16:15 O2 Flow Rate 3 02/15/23 12:00 FiO2 35 02/15/23 15:20 02/15/23 02/15/23 02/15/23 06:59 14:59 22:59 Intake Total 978.000 / 978.000 Output Total 200 / 695 450 / 450 1000 / 1450 Balance -200 / -645 528.000 / 528.000 -1000 / -472.000 Weight last 48 hrs Weight 197 lb 8 oz Weight 199 lb 5 oz Physical Exam Const: COMMON NORMALS: no acute distress and patient oriented x3 HENMT: COMMON NORMALS: normocephalic, external ears normal and Normal external nose present HEAD & SCALP: normal to inspection and normocephalic NOSE: Normal external nose present EXTERNAL EAR: Yes external ears normal MOUTH: Normal oral and palatal mucosa present Eye: COMMON NORMALS: conjunctivae normal GENERAL EYE: appearance normal, both eyes and all related structures CONJUNCTIVA: Yes conjunctivae normal SCLERA: sclerae normal Neck/C-Spine: GENERAL: Yes normal visual inspection and Yes trachea midline Lymph: LYMPHATIC: no lymphadenopathy noted Chest: COMMONS NORMALS: normal inspection of the chest CHEST: Yes Symmetrical chest wall rise Resp: COMMON NORMALS: normal respiratory effort Cardio: COMMON NORMALS: regular rate, regular rhythm, No gallops present (Cardio), No murmurs present (Cardio) and No rub (Cardio) RATE: regular rate RHYTHM: regular rhythm GI: COMMON NORMALS: non-tender : OTHER: deferred Neuro: COMMON NORMALS: patient oriented x3 Psych: COMMON NORMALS: mental status grossly normal Skin: COMMON NORMALS: no rashes or lesions noted GENERAL SKIN EXAM: no rashes or lesions noted Urinary Catheter Management: Monsalve: Cath Placed During This Visit: yes, but has since been removed by the nurse Reason for Continuing Indwelling Catheter: Decision to DC Catheter Urinary Catheter Date of Insertion: 01/25/23 Urinary Catheter Time of Insertion: 15:00 Date Urinary Catheter Removed: 02/11/23 Time Urinary Catheter Discontinued: 15:30 Data 02/15/23 05:15 02/15/23 15:25 Micro: Microbiology 02/13/23 09:15 Urine Culture - Final Urine,Clean Catch A&P Assessment and plan (1) KATHI (acute kidney injury): Patient needs emergent temporary dialysis catheter placement for ATN and high digitalis and potassium levels. Plan non tunneled temporary dialysis catheter placement. Risks of bleeding, infection, cardiopulmonary problems, PTX, injury to neck/chest/leg structures, VTE, mechanical issues, aspiration, more surgery. Coding Level of Care Code 92949 Diagnoses KATHI (acute kidney injury) N17.9
--- NOTE | 2023-02-15 19:15 | ANES.PREANE2 ---
Pre-Anesthetic Assessment Height/Weight: Height 1.63 m Weight 89.584 kg Temp Pulse Resp BP Pulse Ox O2 Del Method O2 Flow Rate 98.1 F 82 14 125/61 94 BiPAP 3 02/15/23 16:15 02/15/23 16:15 02/15/23 16:15 02/15/23 16:15 02/15/23 16:15 02/15/23 16:15 02/15/23 12:00 FiO2 35 02/15/23 15:20 Operation Date: 02/15/23 19:30 Proposed Procedures p Dialysis Catheter Insertion(Not Applicable) - Amarjit Huynh MD Familial anesthetic complications: none Was Beta Phillip taken within 24 hours: N/A Was Clonidine taken within 24 hours: N/A Last intake: > 8nrs Exam alert, oriented x 3 and clear to auscultation bilaterally Pulmonary Chronic Obstructive Pulmonary Disease CV/HEM Atrial Fibrillation, Anemia, Congestive Heart Failure and Hypertension Chronic Renal Failure GI Gastroesophageal Reflux Disease SBO Anesthetic Plan ASA status: 4E Anesthesia: Local Only Risk of > 500 ml blood loss (7ml/kg in children): No Medications/Allergies Home Medications Medication Instructions Recorded Confirmed Last Taken Type albuterol sulfate 90 mcg/actuation 1 puff inhalation QID PRN 04/26/21 01/25/23 02/26/22 Rx aerosol inhaler shortness of breath or wheezing #8.5 grams hydrocodone 5 mg-acetaminophen 325 1 tab PO Q4H PRN pain 5 days #30 04/10/22 01/25/23 05/27/22 20:00 Rx mg tablet tabs aspirin 81 mg capsule 81 mg PO DAILY 05/28/22 01/25/23 01/24/23 History bumetanide 2 mg tablet 2 mg PO BID #180 tabs 06/05/22 01/25/23 01/24/23 Rx carvedilol 6.25 mg tablet 6.25 mg PO BID #180 tabs 06/05/22 01/25/23 01/25/23 Rx metolazone 2.5 mg tablet 2.5 mg PO .every other day #90 tabs 06/05/22 01/25/23 01/23/23 Rx spironolactone 25 mg tablet 25 mg PO DAILY #90 tabs 06/05/22 01/25/23 01/25/23 Rx famotidine 20 mg tablet (Pepcid AC) 20 mg PO DAILY #90 tabs 08/23/22 01/25/23 01/25/23 Rx magnesium L-lactate 84 mg 250 mg PO BID 09/15/22 01/25/23 01/24/23 History tablet,extended release potassium chloride 20 mEq 40 meq PO DAILY 09/15/22 01/25/23 01/24/23 History tablet,extended release calamine 3 %-zinc oxide 3 %-gauze #10 ea 09/20/22 01/25/23 Unknown Rx bandage 3 X 10 yard (Unna Boot Zinc-Calamine) atorvastatin 80 mg tablet 80 mg PO QPM 01/25/23 01/25/23 01/24/23 History warfarin 4 mg tablet See Rx Instructions .Route .COMPLEX 01/25/23 01/25/23 01/24/23 History Allergies Allergy/AdvReac Type Severity Reaction Status Date / Time nkda Allergy Unknown Unknown Uncoded 01/24/23 13:14 Current Medications Generic Name Dose Route Start Last Admin Trade Name Freq PRN Reason Stop Dose Admin Acetaminophen 650 mg 01/25/23 13:10 02/09/23 09:23 Acetaminophen 325 Mg Tablet PO 650 mg Q6H PRN Administration Mild/Mod Pain Or Temp >/= 101 Hydrocodone Bitart/Acetaminophen 1 tab 02/07/23 20:07 02/14/23 22:47 Hydrocodone-Acetaminophen 5-325 Mg Tablet PO 1 tab Q4H PRN Administration MODERATE PAIN Alprazolam 0.25 mg 02/12/23 12:38 02/14/23 04:05 Alprazolam 0.5 Mg Tablet PO 0.25 mg BID PRN Administration ANXIETY Amiodarone HCl 200 mg 02/11/23 09:00 02/12/23 08:16 Amiodarone 200 Mg Tablet PO 200 mg DAILY ETHAN Administration Aspirin 81 mg 01/26/23 09:00 02/12/23 08:16 Aspirin 81 Mg Chew Tablet PO 81 mg DAILY ETHAN Administration Atorvastatin Calcium 80 mg 01/25/23 18:00 02/11/23 17:57 Atorvastatin 40 Mg Tablet PO 80 mg QPM ETHAN Administration Budesonide 0.5 mg 01/28/23 20:00 02/15/23 08:08 Budesonide 0.5 Mg/2 Ml Neb INHALATION 0.5 mg BID.RESPIRATORY ETHAN Administration Denture Adhesive 1 applic 01/30/23 09:06 01/30/23 18:41 Fixodent 39 Gm Tube DENTAL 1 applic PRN PRN Administration denture adhesive Fluticasone Propionate 2 spray 01/28/23 09:00 02/15/23 13:39 Fluticasone Nasal [place] 16gm Btl NASAL Not Given DAILY ETHAN Amiodarone HCl 900 mg/ 518 mls @ 17.267 mls/hr 02/12/23 16:30 02/15/23 18:33 Dextrose/ IV Miscellaneous IV 0.5 mg/min Supplies CONT ETHAN 17.27 mls/hr Administration 0.5 MG/MIN Fluconazole 100 mg/ N/A 50 mls @ 50 mls/hr 02/13/23 09:30 02/15/23 10:46 IV 02/16/23 09:29 50 mls/hr Q24H ETHAN Administration Bumetanide 20 mg/ N/A 80 mls @ 4 mls/hr 02/15/23 15:30 02/15/23 15:56 IV 02/16/23 11:29 1 mg/hr .Q20H ETHAN 4 mls/hr Administration 1 MG/HR Cefazolin Sodium 1,000 mg/ 50 mls @ 100 mls/hr 02/15/23 20:00 02/15/23 20:03 Sodium Chloride IV 02/15/23 20:29 100 mls/hr ONCE ONE Administration Protocol Ipratropium [place] 0.5 mg 01/28/23 14:00 02/15/23 13:29 Ipratropium 0.5 Mg/2.5 Ml Neb INHALATION 0.5 mg Q6H.RESP ETHAN Administration Levalbuterol HCl 0.63 mg 01/28/23 14:00 02/15/23 13:29 Levalbuterol 0.63 Mg/3 Ml Neb INHALATION 0.63 mg Q6H.RESP ETHAN Administration Lidocaine 1 patch 02/10/23 21:00 02/15/23 09:40 Lidocaine 5% Patch TOPICAL 1 patch [id number] ETHAN Administration Magnesium Hydroxide 30 ml 02/11/23 09:02 02/14/23 14:45 Magnesium Hydroxide 30 Ml Udc PO 30 ml DAILY PRN Administration CONSTIPATION Metolazone 5 mg 02/15/23 09:00 02/15/23 09:40 Metolazone 5 Mg Tablet PO 5 mg DAILY ETHAN Administration Metoprolol Tartrate 25 mg 01/30/23 09:05 02/12/23 08:16 Metoprolol Tartrate 25 Mg Tablet PO 25 mg BID@0900,2100 ETHAN Administration Metoprolol Tartrate 2.5 mg 02/13/23 20:00 02/15/23 14:46 Metoprolol Tartrate 1 Mg/1 Ml Sdv 5 Ml IVP 2.5 mg Q6H ETHAN Administration Nystatin 1 applic 02/05/23 12:25 02/15/23 10:59 Nystatin Cream 30 Gm TOPICAL Not Given BID ETHAN Ondansetron HCl 4 mg 01/25/23 13:38 02/15/23 09:33 Ondansetron 2 Mg/Ml Sdv 2 Ml IVP 4 mg Q8H PRN Administration vomiting, or N/V if npo Pantoprazole Sodium 40 mg 02/12/23 18:00 02/15/23 18:34 Pantoprazole 40 Mg Sdv IVP 40 mg Q12H ETHAN Administration Ropinirole HCl 0.5 mg 01/28/23 21:00 02/14/23 21:02 Ropinirole 0.25 Mg Tablet PO 0.5 mg BEDTIME ETHAN Administration PFSH Anesthesia Medical History Abdominal distention Acute hyponatremia Carotid artery stenosis Carotid disease, bilateral Cellulitis Chest pain CHF (congestive heart failure), NYHA class III Diastolic heart failure with EF of 55 to 60% COPD (chronic obstructive pulmonary disease) Dyslipidemia Femoral artery occlusion Hypertension Lymphedema of both lower extremities PAD (peripheral artery disease) Peripheral edema Peripheral vascular disease Respiratory failure Smoker SOB (shortness of breath) Superficial femoral artery occlusion TIA (transient ischemic attack) Uncontrolled hypertension Venous stasis dermatitis of right lower extremity Surgical History S/P peripheral artery angioplasty with stent placement S/P vascular surgery Status post carotid surgery (~2012) bilateral Family History Other CAD (coronary artery disease) Social History Smoking and tobacco status: former smoker Quit status (tobacco): considering quitting Second hand smoke exposure: Yes Alcohol intake: never Substance/Drug Use: never Caregiver/support person: Yes Lives independently: Yes Household members: spouse Marital status: service: No Current occupational status: retired Current gender identity: Female Data Anesthesia 02/15/23 05:15 02/15/23 15:25 Short CBC 02/14/23 02/15/23 Range/Units 05:27 05:15 WBC 14.4 H 13.2 H (4.0-10.0) 10^3/uL Hgb 8.0 L 8.4 L (11.5-15.3) g/dL Hct 26.7 L 28.8 L (37.0-47.0) % MCV 90.5 90.0 (81-99) fl Plt Count 232 228 (130-400) 10^3/cmm Neut % (Auto) 83.3 80.6 % Neut # (Auto) 11.99 H 10.66 H (1.8-7.7) 10^3/uL BMP 02/14/23 02/14/23 02/15/23 05:27 14:15 05:15 Sodium 138 135 L 137 Potassium 5.4 H 6.1 H 5.5 H Chloride 106 102 99 Carbon Dioxide 20 L 21 L 24 BUN 69 H 71 H 75 H Creatinine 2.9 H 3.8 H 3.5 H Glucose 79 103 79 Calcium 8.1 L 8.7 8.7 02/15/23 15:25 Sodium 137 Potassium 5.6 H Chloride 98 Carbon Dioxide 24 BUN 76 H Creatinine 3.7 H Glucose 105 Calcium 8.5 Liver Function 02/14/23 02/15/23 Range/Units 05:27 05:15 Total Bilirubin 0.9 0.7 (0.15-1.2) mg/dL AST 17 53 H (0-32) U/L ALT 15 41 H (0-33) U/L Alkaline Phosphatase 134 H 154 H (35-105) U/L Albumin 2.8 L 3.2 L (3.5-5.2) g/dL Coags 02/14/23 02/15/23 05:27 05:15 PT 28.60 H 27.30 H INR 2.57 H 2.43 H Microbiology 02/13/23 09:15 Urine Culture - Final Urine,Clean Catch Cardiac Studies: Echocardiogram 05/27/21 Echocardiogram Ultrasound 01/26/23 Sestamibi Stress Test (Cardiology) 05/28/21
[2023-02-15] MEDS: lidocaine-epi 1% 20 mL INJ INJECTION (20:00)
[2023-02-15] MEDS: ceFAZolin 1,000 MG in sodium chloride 0.9% (plus) 50 ML 100 MG IV (20:03)
--- NOTE | 2023-02-15 20:30 | ANE.PACU2 ---
Inpatient post-anesthesia follow up: Airway intact: Yes Vital signs: Temperature 98.8 F Pulse Rate [Therap y Changed] 103 Pulse Rate [Curren t] 79 Pulse Rate 89 Respiratory Rate [ Therapy 18 Changed] Respiratory Rate [ Current] 15 Respiratory Rate 19 Blood Pressure 111/48 Pulse Oximetry [Th erapy 93 Changed] Pulse Oximetry [Cu rrent] 95 Pulse Oximetry 96 Oxygen Delivery Me thod BiPAP Oxygen Flow Rate [ Therapy 35 Changed] Oxygen Flow Rate [ Current] 4 Oxygen Flow Rate 3 Fraction of Inspir ed Oxygen [ 50 Therapy Changed] Fraction of Inspir ed Oxygen [ 50 Current] Fraction of Inspir ed Oxygen 40 Hydration adequate: Yes Nausea and vomiting: No Pain level: 1 Mental status: Baseline
[2023-02-15 20:32] LABS: Hepatitis B Surface AB 3.5 (11.5-1000); Hepatitis B Surface Antigen Non-Reactive (Nonreactive)
--- NOTE | 2023-02-15 20:55 | XRR_ITS ---
PROCEDURE INFORMATION: Exam: XR Chest Exam date and time: 02/15/2023 9:34 PM Age: 72 years old Clinical indication: Device placement; Other: Dialysis cath; Additional info: Dialysis cath placement verification, R/O ptx, upright portable TECHNIQUE: Imaging protocol: Radiologic exam of the chest. Views: 1 view. COMPARISON: CR (CHEST, ) 02/12/2023 4:46 PM FINDINGS: Tubes, catheters and devices: There is an enteric tube with the tip in the body of the stomach. Right upper extremity PICC is stable in position with the tip at the cavoatrial junction. Interval placement of a right subclavian dialysis catheter with the tip at the lower superior vena cava. There is a linear radiopaque focus measuring approximately 3.5 cm in the distal dialysis catheter, recommend clinical correlation to ensure a broken/retained wire fragment is not stuck in the dialysis catheter. Lungs: Mild interstitial pulmonary edema, decreased compared with the prior chest radiograph. Pleural spaces: Small bilateral pleural effusions, decreased in size. Heart/Mediastinum: Stable moderate enlargement of the cardiac silhouette. Mediastinal contours are unremarkable. Bones/joints: Unremarkable for age. XR/XR chest 1V portable [id number] IMPRESSION: 1. Interval placement of a right subclavian dialysis catheter with the tip at the lower superior vena cava. There is a linear radiopaque focus measuring approximately 3.5 cm in the distal dialysis catheter, recommend clinical correlation to ensure a broken/retained wire fragment is not stuck in the dialysis catheter. 2. Mild interstitial pulmonary edema, decreased compared with the prior chest radiograph. 3. Small bilateral pleural effusions, decreased in size. 4. There is an enteric tube with the tip in the body of the stomach. 5. Right upper extremity PICC is stable in position with the tip at the cavoatrial junction. 6. Incidental/nonacute findings are listed in the report.
--- NOTE | 2023-02-15 20:56 | PM.OP ---
Operative Report Date of procedure: February 15, 2023 Pre-op diagnosis: acute renal failure Post-op diagnosis: same Procedure done: right subclavian nontunneled [place] type dialysis catheter placement with use of fluoro Implants: 16 cm long [place] type dialysis catheter Surgeon: Corby Huynh MD Anesthesia: Local Estimated blood loss: minimal Complications: none Brief History: Patient with acute renal failure with elevated potassium and elevated digitalis levels and needs temporary dialysis She understands risks, benefits and alternatives to procedure and wishes to proceed. Risks include bleeding, infection, cardiopulmonary problems, PTX, injury to neck/chest/leg structures, VTE, mechanical issues and failures, more surgery, aspiration. Procedure: After adequately prepping and draping the right neck and chest wall area, patient was placed in reverse trendelenberg position. 1% lidocaine with epi was instilled over the right subclavian vein area. Patient has functioning PICC line on this side. A large bore needle was inserted into subclavian vein and by seldinger technique ad guide wire was inserted and verified in superior vena cava toward junction of right atrium. Dilators were passed over the guidewire and then a preflushed dialysis catheter that was not tunneled and did not have cuff was threaded over the wire with tip near superior vena cava and right atrial junction by fluoro. Good blood return was noted from both ports and was flushed first with saline then heparinized saline 100 units per cc into ports then capped. the catheter was stiched to skin at 16 cm with 3-0 silk then aseptically dressed. Upright CXR in recovery room is pending. Patient tolerated procedure well.
[2023-02-15 21:19] LABS: Hepatitis B Core AB, Total Reactive (Nonreactive)
--- NOTE | 2023-02-15 22:48 | PC.NURSE ---
late entry, Dr Amarjit Huynh came to floor looking for patient's family, stated procedure went well and HD catheter ok to use
--- NOTE | 2023-02-15 23:24 | PC.NURSE ---
1899: Limited assessment. OR team and family at beside. Patient being readied to transfer for temp HD placement. Appears alert and oriented. O2 maintained on c-pap. Amiodarone and bumex gtt infusing via PICC line. R nare NGT clamped. 2024: Limited assessment. Patient returned to room with R [place] temp HD cath. Patient alert, oriented, able to voice needs. Arrived on adult mask and asks to be placed back on c-pap for ease of breathing. C-pap placed, FIO2= 40%. Patient placed back on monitoring devices. Vitals WDL.
[2023-02-16] VITALS (26 sets, daily range): BP systolic 87–128; BP diastolic 36–75; PULSE 66–93; RESP 12–36; TEMP 36.5–37.3; O2SAT 90–96
--- NOTE | 2023-02-16 00:13 | PC.HD ---
Serology results: Hep BsAg: Negative Hep BsAb: 3.5 Hep B Core Ab: Positive According to the CDC, these results are inconclusive, and may indicate a prior (recovered) or active Hepatitis B infection. Business Management Associate and primary RN notified. Dialysis machine will be treated as if patient is actively infected. Machine will be bleached after treatment and remain sequestered for this patient's use only during her hospitalization. Upon discharge, machine will be internally disinfected per protocol.
[2023-02-16] MEDS: metoprolol tartrate 1 mg/1 mL SDV 5 mL 2.5 MG IVP ×2 (01:48→07:47)
[2023-02-16] MEDS: levalbuterol 0.63 mg/3 mL Neb INHALATION ×4 (02:54→22:23)
[2023-02-16] MEDS: ipratropium 0.5 mg/2.5 mL Neb INHALATION ×4 (02:54→22:23)
[2023-02-16 03:36] LABS: Basophils # 0.1 10^3/uL (0.0-0.1); Basophils % 0.7 %; Eosinophils # 0.5 10^3/uL (0.0-0.8); Eosinophils % 3.5 %; Hematocrit 28.6 % (37.0-47.0); Hemoglobin 8.3 g/dL (11.5-15.3); Lymphocytes # 0.9 10^3/uL (0.8-4.8); Lymphocytes % 6.3 %; Mean Corpuscular Hemoglobin 26.1 pg (28.0-34.0); Mean Corpuscular Volume 89.9 fl (81-99); Mean Platelet Volume 11.1 fL (7.4-10.4); Monocytes % 7.3 %; Neutrophils # 10.95 10^3/uL (1.8-7.7); Neutrophils % 80.9 %; Nucleated Red Blood Cells % 0 %; Platelet Count 234 10^3/cmm (130-400); Red Blood Count 3.18 10^6/uL (4.1-5.3); Red Cell Distribution Width 17.2 % (12.1-15.1); White Blood Count 13.6 10^3/uL (4.0-10.0)
[2023-02-16 03:43] LABS: INR 2.48 (0.8-1.2)
[2023-02-16 03:57] LABS: Alanine Aminotransferase 33 U/L (0-33); Albumin Level 3.2 g/dL (3.5-5.2); Alkaline Phosphatase 151 U/L (35-105); Anion Gap 14.6 (5-19); Aspartate Amino Transferase 35 U/L (0-32); Blood Urea Nitrogen 38 mg/dL (8-23); Calcium 8.3 mg/dL (8.5-10.5); Carbon Dioxide 30 mmol/L (22-29); Chloride 101 mmol/L (98-107); Glucose 92 mg/dL (65-115); Osmolality Calculated 301 mOsm/kg (285-295); Potassium 4.6 mmol/L (3.5-5.1); Sodium 141 mmol/L (136-145); Total Bilirubin 0.6 mg/dL (0.15-1.2); Total Protein 6.2 g/dL (6.6-8.7)
[2023-02-16 04:03] LABS: Digoxin 2.6 ng/mL (0.6-1.2)
[2023-02-16] MEDS: pantoprazole 40 mg SDV IVP ×2 (05:47→17:56)
--- NOTE | 2023-02-16 06:14 | PC.NURSE ---
02/15/23: 2135- Received call from Dr Baron regarding chest x-ray of HD cath. Radiologist expressed concern about a linear, opaque object located at the distal end of catheter. The following care team members were notified by this RN- Dr. Zoltan Rodgers, Dr. Kandi Marina, and Metal Burrer (Marycarmen). Dr. Zoltan Rodgers personally notified Dr Amarjit Huynh via phone call.
[2023-02-16] MEDS: budesonide 0.5 mg/2 mL Neb INHALATION ×2 (07:22→22:23)
[2023-02-16] MEDS: metOLazone 5 MG Tablet PO (09:02)
--- NOTE | 2023-02-16 09:51 | ECG_ITS ---
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 Measurements Intervals [place] Rate: 89 P: 0 DE: 0 QRS: 36 QRSD: 69 T: 111 QT: 289 QTc: 352 Interpretive Statements ATRIAL FIBRILLATION LOW QRS VOLTAGE IN PRECORDIAL LEADS [QRS DEFLECTION < 1.0 mV IN CHEST LEADS] NONSPECIFIC ST & T-WAVE ABNORMALITY Compared to ECG 02/15/2023 09:57:01 T-wave abnormality now present Myocardial infarct finding no longer present Electronically Signed On 02-16-2023 15:58:06 CDT by Farhat Cervantes M.D. [email or web address] Car [email or web address] [id number]
--- NOTE | 2023-02-16 10:00 | XRR_ITS ---
PROCEDURE INFORMATION: Exam: XR Abdomen Exam date and time: 02/16/2023 10:03 AM Age: 72 years old Clinical indication: Other: Sbo; Prior surgery; Surgery date: 6+ months; Surgery type: Appy; Additional info: Partial sbo, flat and upright TECHNIQUE: Imaging protocol: Radiologic exam of the abdomen. Views: 2 Views. Upright and supine views. AP Supine and Upright COMPARISON: CR XR acute abdomen series [id number] 02/15/2023 11:42 AM FINDINGS: Tubes, catheters and devices: Nasogastric tube is seen with tip in the left upper abdominal region in the area of the upper stomach. Gastrointestinal tract: Unchanged moderate to severely gas distended loops of bowel are seen in the abdomen with maximal diameter of 4.9 cm. Some air is seen in the ascending, transverse and descending colon regions. These findings would be consistent with early or partial small bowel obstruction or adynamic ileus. Recommend correlation with bowel sound findings. There is no pneumatosis or mass effect. There is no organomegaly. Intraperitoneal space: No definite free air on the supine view exam. Bones/joints: Unchanged generalized osteopenia. Unchanged kyphoplasty/vertebroplasty changes in the T11, T12, L4 and L5 regions. Soft tissues: No radiopaque foreign body or abnormal opacity. XR/XR abdomen min 2V [id number] IMPRESSION: Unchanged moderate to severely gas distended loops of bowel in the abdomen, as noted above.
[2023-02-16] MEDS: nystatin cream 30 gm 1 APPLIC TOPICAL (11:48)
--- NOTE | 2023-02-16 12:38 | PC.NURSE ---
Patient left [facility] for dialysis at 1225.
--- NOTE | 2023-02-16 13:49 | PM.PN ---
Subjective Subjective: No complaints, no N/V Vitals/I&O/Wt Last Vital Signs Temp 98.8 F 02/16/23 12:54 Pulse 86 02/16/23 12:54 Resp 18 02/16/23 12:54 BP 111/48 02/16/23 12:54 Pulse Ox 96 02/16/23 11:27 O2 Del Method BiPAP 02/16/23 11:27 O2 Flow Rate 3 02/15/23 12:00 FiO2 40 02/16/23 10:49 02/15/23 02/16/23 02/16/23 22:59 06:59 14:59 Intake Total 300 / 1278.000 80 / 80 Output Total 1450 / 1900 2500 / 4400 Balance -1450 / -922.000 -2200 / -3122.000 80 / 80 Weight last 48 hrs Weight 190 lb Weight 191 lb 5.78 oz Weight 197 lb 8 oz Weight 199 lb 5 oz Physical Exam Narrative: .shcompletePE Patient is a well developed well nourished and in NAD and is afebrile with vitals stable and is answering questions appropriately with a normal affect and is alert and oriented x3 HEENT: normocephalic with normal external ears and nonicteric, oral mucosa moist and dentition normal for age, trachea midline with no large masses visualized Heart: RRR, no gallops murmurs or rubs, normal PMI with no thrills Lungs: normal excursions, no loud audible wheezing, no subcutaneous emphysema Abdomen: nondistended, no gross hepatosplenomegaly, no masses, no rigidity or rebound, no loud borborygmi Neuro: nonfocal, DELGADILLO, grossly normal sensation Musculoskeletal: good muscle tone, no fasciculations, normal gait Skin: pink warm and dry with no rashes or ecchymosis Vascular: good radial pulses, no ulceration, less than 2 second capillary refill in hand : deferred Urinary Catheter Management: Monsalve: Cath Placed During This Visit: yes, but has since been removed by the nurse Reason for Continuing Indwelling Catheter: Decision to DC Catheter Urinary Catheter Date of Insertion: 01/25/23 Urinary Catheter Time of Insertion: 15:00 Date Urinary Catheter Removed: 02/11/23 Time Urinary Catheter Discontinued: 15:30 Data 02/16/23 03:04 02/16/23 03:04 Micro: Microbiology 02/13/23 09:15 Urine Culture - Final Urine,Clean Catch A&P Assessment and plan (1) Partial small bowel obstruction: Plan Patient had dialysis catheter placed yesterday and went in easily. Post procedure film showed possible metallic foreign body in right atrium but the second vrads radiologist told me last night that he did not believe it was metallic fb but radiopaque end of catheter. The dialysis catheter kit does state tube is radio opaque. Today there is no change in position of radio opaque catheter tip and it does appear to be part of the dialysis catheter tip. There is no evidence of migration of tip. This is a new kit the hospital is now using per surgical nurse yesterday. The AXR does not appear to have any worsening sbo. Keep NG in place. Once dialysis catheter is no longer needed will pull this out and repeart CXR to verify no retained foreign body. Attestations Medical Necessity Statement*: Patient has chf and acute renal failure requiring dialysis and sbo Coding Level of Care Code Acute Code for Chg Fwd Diagnoses Partial small bowel obstruction K56.600
--- NOTE | 2023-02-16 14:29 | PM.PN ---
Subjective Subjective: getting hD Vitals/I&O/Wt Last Vital Signs Temp 98.8 F 02/16/23 12:54 Pulse 89 02/16/23 14:00 Resp 19 H 02/16/23 14:00 BP 111/48 02/16/23 12:54 Pulse Ox 96 02/16/23 14:00 O2 Del Method BiPAP 02/16/23 14:00 O2 Flow Rate 3 02/15/23 12:00 FiO2 40 02/16/23 14:00 02/15/23 02/16/23 02/16/23 22:59 06:59 14:59 Intake Total 300 / 1278.000 80 / 80 Output Total 1450 / 1900 2500 / 4400 Balance -1450 / -922.000 -2200 / -3122.000 80 / 80 Weight last 48 hrs Weight 86.183 kg Weight 86.8 kg Weight 89.584 kg Weight 90.407 kg Physical Exam Narrative: awake , alert , no distress HEENT S1S2 RRR per report Crackles per report + LEedema Urinary Catheter Management: Monsalve: Cath Placed During This Visit: yes, but has since been removed by the nurse Reason for Continuing Indwelling Catheter: Decision to DC Catheter Urinary Catheter Date of Insertion: 01/25/23 Urinary Catheter Time of Insertion: 15:00 Date Urinary Catheter Removed: 02/11/23 Time Urinary Catheter Discontinued: 15:30 Data 02/16/23 03:04 02/16/23 03:04 Micro: Microbiology 02/13/23 09:15 Urine Culture - Final Urine,Clean Catch A&P Assessment and plan (1) KATHI (acute kidney injury): Plan 1. Acute on chronic kidney disease: Creatinine baseline in the mid 1 range. Current KATHI likely multifactorial-possible ATN due to acute infection, toxicity, possible cardiorenal. Patient has persistent hyperkalemia and volume overload with no response to diuretics at this point. -S/P temporary hemodialysis catheter placement and s/p HD 02/15 , and 02/16 -Reassess daily for HD needs. 2. Persistent hyperkalemia , multifactorial from KATHI and digitoxicity, improved 3. CHF: On Bumex drip with poor response at this time, HD as above 4. Acute on chronic respiratory failure: On BiPAP 6. Right extremity cellulitis 7. A-fib with RVR 8. Small bowel obstruction, followed by surgery Patient evaluated using audiovisual cart. Time spent 45 minutes Attestations Medical Necessity Statement*: per medicine Coding Level of Care Code Acute Code for Chg Fwd Diagnoses KATHI (acute kidney injury) N17.9
--- NOTE | 2023-02-16 17:17 | PC.NURSE ---
Patient returned to [facility] for dialysis at 1638.
--- NOTE | 2023-02-16 17:25 | P.PN_ITS ---
Subjective Subjective: Seen multiple times during the day. No acute events overnight. Patient underwent temporary dialysis catheter placement yesterday and underwent dialysis for session in which 2 L was withdrawn. Patient underwent dialysis without any difficulties. Today morning seen on BiPAP. Awake and alert. Able to complete conversation. Passing flatus on and off but has not had a bowel movement. Underwent dialysis again today and had 2 L withdrawn which she tolerated well. After dialysis she was able to transition over to nasal cannula. Patient is awake and alert. Denies any nausea, vomiting, headache. Blood work shows a stable CBC, INR of 2.4, BMP showing a creatinine improvement to 2.5 with BUN improvement to 38, stable LFT with digoxin level is coming down to 2.6 Medications: Reviewed: Yes Vitals/I&O/Wt Last Vital Signs Temp 98.6 F 02/16/23 15:55 Pulse 80 02/16/23 16:36 Resp 22 H 02/16/23 16:36 BP 97/75 02/16/23 16:36 Pulse Ox 96 02/16/23 16:36 O2 Del Method BiPAP 02/16/23 14:00 O2 Flow Rate 3 02/15/23 12:00 FiO2 40 02/16/23 14:00 02/16/23 02/16/23 02/16/23 06:59 14:59 22:59 Intake Total 300 / 1328.000 80 / 80 400 / 480 Output Total 2500 / 4400 2300 / 2300 Balance -2200 / -3072.000 80 / 80 -1900 / -1820 Weight last 48 hrs Weight 87.3 kg Weight 86.183 kg Weight 86.8 kg Weight 89.584 kg Weight 90.407 kg Physical Exam Narrative: General: No acute distress, AO x3, NC oxygen supplementation, chronically sick appearing, HEENT: PERRLA, pupils bilaterally equal and reactive Chest: Bronchial breath sounds b/l coarse crackles with occasional rhonchi all over lung long CVS: S1-S2 irregularly irregular, soft pansystolic murmur at apex this, no tachycardia, no gallops, no rubs Abdomen: Soft, distended, nontender, bowel sounds sluggish Neuro: No focal deficits, no facial deformity, AO x3, power 5/5 in all limbs Urinary Catheter Management: Monsalve: Cath Placed During This Visit: yes, but has since been removed by the nurse Reason for Continuing Indwelling Catheter: Decision to DC Catheter Urinary Catheter Date of Insertion: 01/25/23 Urinary Catheter Time of Insertion: 15:00 Date Urinary Catheter Removed: 02/11/23 Time Urinary Catheter Discontinued: 15:30 Data 02/16/23 03:04 02/16/23 03:04 A&P Assessment and plan (1) SBO (small bowel obstruction): Appreciate surgical recommendations. Repeat abdominal series. Continue with NG tube placement and conservative treatment. NPO. Out of bed to chair. IV Protonix, Zofran as needed. (2) KATHI (acute kidney injury): Patient on dialysis now. Appreciate nephrology recommendations. Temporary dialysis catheter placed on 02/15. Post 2 sessions of dialysis. Continue to monitor BMP and digoxin levels daily for now. Monitor urine output. Medical reconciliation done for nephrotoxic drugs. Bumex drip stopped. We will start on Bumex 1 mg IV daily. (3) Hyperkalemia: Ring with dialysis. Monitor BMP daily for now. (4) Respiratory failure with hypoxia: In setting of fluid overload from renal failure and diastolic heart failure. Resolving with dialysis. BiPAP as needed. Oxygen supplementation keeping saturation over 88%. Strict input output charting, daily weights. Bumex as above. (5) Atrial fibrillation with RVR: Heart rate now remains controlled. Hold off on any further digoxin given hyperkalemia and KATHI. Digoxin level is elevated. Continue to monitor daily. Continue with IV amiodarone at 0.5. Continue with metoprolol IV as needed to 2.5 every 6 to be held if systolic blood pressures less than 100 mmHg. If patient tolerating clear liquid diet well we will switch to oral medications from tomorrow morning. (6) Supratherapeutic INR: Patient has a labile INR. Patient is supratherapeutic INR on presentation which had improved and then supratherapeutic again. Most likely in combination of medical interactions. Discussed in detail with patient. Patient would benefit from switching from Coumadin to NOAC. Patient verbalized understanding and is agreeable. Patient will follow-up as an outpatient with cardiology who is [address] provider and can get medication for cheaper. INR stable. Target INR 2-3 given A-fib with RVR. Continue to hold off on heparin drip till INR remains more than 2. On discharge she will start on Eliquis 5 mg twice daily. Hold off on any further Coumadin. (7) Anemia: Acute on chronic. Most likely a combination of iron deficiency anemia along with anemia of chronic disease. No active sign of bleeding for now other than microscopic hematuria. Patient did have labile INR with occasional hematuria during the hospitalization. Target hemoglobin more than 8. Post 1 unit of blood transfusion. Continue to monitor hemoglobin daily. Hemoglobin stable for now. (8) Cellulitis: Stable. Continue wound care with zinc oxide. Frequent repositioning. Out of bed to chair. MRSA negative. Stop vancomycin. Finished Cefepime on 02/12. Last dose of fluconazole on 02/15. Lower extremities do not appear to have active cellulitis beyond chronic changes, ulceration on anterior medial right lower leg. 1cm spot of eschar on lateral second left toe, she states has had that spot for a while. Keep monitoring. Does not appear like necrosis. (9) CHF (congestive heart failure), NYHA class III: Dialysis and Bumex as above. Fluid restriction up to 1500 cc. Monitor daily. Qualifiers: Congestive heart failure chronicity: acute on chronic Congestive heart failure type: diastolic Qualified Code(s): I50.33 - Acute on chronic diastolic (congestive) heart failure (10) Hyponatremia: Resolved (11) Wound, open, leg: (12) PAD (peripheral artery disease): (13) Hypertension: (14) Warfarin anticoagulation: (15) Carotid disease, bilateral: (16) COPD (chronic obstructive pulmonary disease): (17) Peripheral neuropathy: (18) Hemodialysis status: Plan Hematuria: Monsalve replaced yesterday after small bowel obstruction. Continue to monitor for hematuria. DNR/DNI. Regular diet. Supratherapeutic INR with suffice for DVT prophylaxis Protonix for PUD prophylaxis. Discharge plan: Discharge on hold given multiple active ongoing issues Patient's care plan discussed in detail with spouse and family members at bedside. All the questions were answered. CODE STATUS discussed in detail with patient again. She want to continue to remain DNR/DNI. Attestations Medical Necessity Statement*: Requires further hospitalization for management of acute renal failure on hemodialysis, small bowel obstruction undergoing conservative treatment with NG tube placement and bowel rest, A-fib with RVR, diastolic congestive heart failure leading to respiratory failure requiring BiPAP Coding Level of Care Code Critical Care >/= 30 minutes Critical care time (in minutes): 70 The high probability of a clinically significant, sudden or life threatening deterioration, as referenced in this documentation, required my full and direct attention, intervention and personal management. The critical care time shown is in addition to time spent performing any reported separately billable procedures and includes the following: [x] Data and vital sign review and interpretation [x ] Patient assessment, examination and intervention [x] Medication orders and management [x] Patient/Family updates as able [x] Care Coordination and Documentation. Diagnoses SBO (small bowel obstruction) K56.609 KATHI (acute kidney injury) N17.9 Hyperkalemia E87.5 Respiratory failure with hypoxia J96.91 Atrial fibrillation with RVR I48.91 Supratherapeutic INR R79.1 Anemia D64.9 Cellulitis L03.90 CHF (congestive heart failure), NYHA class III I50.33 Congestive heart failure chronicity: acute on chronic Congestive heart failure type: diastolic Hyponatremia E87.1 Wound, open, leg S81.809A PAD (peripheral artery disease) I73.9 Hypertension I10 Warfarin anticoagulation Z79.01 Carotid disease, bilateral I77.9 COPD (chronic obstructive pulmonary disease) J44.9 Peripheral neuropathy G62.9 Hemodialysis status Z99.2
[2023-02-16] MEDS: lidocaine 5% Patch 1 PATCH TOPICAL (17:56)
[2023-02-16] MEDS: bumetanide 0.25 mg/mL SDV 4 mL 1 MG IVP (18:20)
--- NOTE | 2023-02-16 18:59 | PC.NURSE ---
Dr Richardson called and to give a bag of albumin and give metoprolol as instructed in MAR.
[2023-02-16] MEDS: albumin 12.5 GM/50 ML VIAL IV (20:01)
[2023-02-17] VITALS (14 sets, daily range): BP systolic 97–135; BP diastolic 39–61; PULSE 63–98; RESP 17–86; TEMP 36.6–37.2; O2SAT 86–96
--- NOTE | 2023-02-17 01:00 | PC.NURSE ---
[facility] [place] sent to Dr. Rodgers regarding patient's BP. With MAP ranging around 58 after 2nd round of dialysisi today. Dr. Rodgers came to patient's bedside to assess patient. Order received for stat magnesium and D5NS at 75ml/hr.
[2023-02-17] MEDS: dextrose 5%-sod chloride 0.9% 1,000 ML 75 ML IV (01:44)
[2023-02-17 01:55] LABS: Basophils # 0.1 10^3/uL (0.0-0.1); Basophils % 0.7 %; Eosinophils # 0.5 10^3/uL (0.0-0.8); Eosinophils % 4.5 %; Hematocrit 27.1 % (37.0-47.0); Hemoglobin 8.2 g/dL (11.5-15.3); Lymphocytes % 9.2 %; Mean Corpuscular HGB Conc 30.3 g/dL (30.0-36.0); Mean Corpuscular Hemoglobin 27.1 pg (28.0-34.0); Mean Corpuscular Volume 89.4 fl (81-99); Mean Platelet Volume 10.3 fL (7.4-10.4); Monocytes # 0.9 10^3/uL (0.2-0.9); Monocytes % 8.3 %; Neutrophils # 8.31 10^3/uL (1.8-7.7); Neutrophils % 76.3 %; Nucleated Red Blood Cells % 0 %; Platelet Count 186 10^3/cmm (130-400); Red Blood Count 3.03 10^6/uL (4.1-5.3); Red Cell Distribution Width 17.2 % (12.1-15.1); White Blood Count 10.9 10^3/uL (4.0-10.0)
[2023-02-17 02:11] LABS: Magnesium 1.8 mg/dL (1.7-2.3)
[2023-02-17 02:12] LABS: Alanine Aminotransferase 21 U/L (0-33); Albumin Level 3.7 g/dL (3.5-5.2); Alkaline Phosphatase 131 U/L (35-105); Anion Gap 16.9 (5-19); Aspartate Amino Transferase 21 U/L (0-32); Blood Urea Nitrogen 19 mg/dL (8-23); Calcium 8.6 mg/dL (8.5-10.5); Carbon Dioxide 27 mmol/L (22-29); Chloride 99 mmol/L (98-107); Globulin 2.8 g/dL (1.3-4.6); Glucose 80 mg/dL (65-115); Osmolality Calculated 289 mOsm/kg (285-295); Potassium 3.9 mmol/L (3.5-5.1); Sodium 139 mmol/L (136-145); Total Bilirubin 0.8 mg/dL (0.15-1.2); Total Protein 6.5 g/dL (6.6-8.7)
[2023-02-17 02:25] LABS: Digoxin 1.8 ng/mL (0.6-1.2)
[2023-02-17] MEDS: ipratropium 0.5 mg/2.5 mL Neb INHALATION ×3 (02:53→14:54)
[2023-02-17] MEDS: levalbuterol 0.63 mg/3 mL Neb INHALATION ×3 (02:53→14:54)
[2023-02-17] MEDS: pantoprazole 40 mg SDV IVP ×2 (05:27→18:33)
[2023-02-17] MEDS: budesonide 0.5 mg/2 mL Neb INHALATION (07:22)
--- NOTE | 2023-02-17 07:23 | XRR_ITS ---
PROCEDURE INFORMATION: Exam: XR Chest Exam date and time: 02/17/2023 7:45 AM Age: 72 years old Clinical indication: Condition or disease; Lung condition and disease; Other: Chf TECHNIQUE: Imaging protocol: Radiologic exam of the chest. Views: 1 view. COMPARISON: CR (CHEST, ) 02/15/2023 9:34 PM FINDINGS: Tubes, catheters and devices: Apparent NG tube passes beneath the diaphragm, tip probably in the proximal to mid stomach. Essentially stable position of right central venous catheter and right arm PICC catheter. Lungs: Pulmonary vascularity upper normal/mildly prominent. Bilateral lower lung opacities, right greater than left, similar to prior exam. This could represent pneumonia and/or atelectasis. Pleural spaces: Small bilateral pleural effusions, greater on the right, unchanged. No visible pneumothorax. Heart/Mediastinum: Heart size appears upper range of normal. Bones/joints: No significant acute finding. XR/XR chest 1V portable [id number] IMPRESSION: 1. Bilateral lower lung opacities and pleural effusions, right greater than left, see above discussion. 2. Other findings discussed above.
--- NOTE | 2023-02-17 09:22 | PC.SOCIAL ---
IMM update IMM updated with patient. Verbalized an understanding. Copy PG 2 provided. Initialled, dated, timed, and placed in chart.
--- NOTE | 2023-02-17 11:10 | XRR_ITS ---
PROCEDURE INFORMATION: Exam: XR Abdomen Exam date and time: 02/17/2023 11:16 AM Age: 72 years old Clinical indication: Other: Sbo; Additional info: Partial small bowel obstruction TECHNIQUE: Imaging protocol: Radiologic exam of the abdomen. Views: 2 Views. Upright and supine views. COMPARISON: CR XR abdomen min 2V [id number] 02/16/2023 10:03 AM FINDINGS: Tubes, catheters and devices: Termination of feeding tube in the gastric body. Lungs: Asymmetric right basilar airspace/pleural disease. Gastrointestinal tract: Marked small bowel dilatation again demonstrated, in the setting of CT detected small-bowel obstruction. Intraperitoneal space: No free air. Bones/joints: Osteopenia, multilevel compression fractures and vertebral plasty, and degenerative change. Soft tissues: Diffuse soft tissue enlargement and skin folds. XR/XR abdomen min 2V [id number] IMPRESSION: 1. Marked small bowel dilatation again demonstrated, in the setting of CT detected small-bowel obstruction. 2. Termination of feeding tube in the gastric body. 3. Additional findings as described above.
[2023-02-17] MEDS: midodrine 5 mg TABLET PO ×3 (11:46→21:39)
[2023-02-17] MEDS: AA-Dex 5%-20% w/Lytes 1,000 ML 10 ML IV (11:46)
[2023-02-17] MEDS: lidocaine 5% Patch 1 PATCH TOPICAL (12:21)
--- NOTE | 2023-02-17 13:24 | PM.PN ---
Subjective Subjective: Patient off bipap and feels better Vitals/I&O/Wt Last Vital Signs Temp 98.5 F 02/17/23 12:00 Pulse 98 02/17/23 12:00 Resp 21 H 02/17/23 12:00 BP 109/61 02/17/23 12:00 Pulse Ox 94 02/17/23 12:00 O2 Del Method Nasal Cannula 02/17/23 12:00 O2 Flow Rate 4 02/17/23 07:27 FiO2 40 02/17/23 02:00 02/16/23 02/17/23 02/17/23 22:59 06:59 14:59 Intake Total 400 / 480 518 / 998 500 / 500 Output Total 2500 / 2500 0 / 2500 Balance -2100 / -2020 518 / -1502 500 / 500 Weight last 48 hrs Weight 182 lb Weight 192 lb 7.417 oz Weight 190 lb Weight 191 lb 5.78 oz Physical Exam Narrative: Patient is a well developed well nourished and in NAD and is afebrile with vitals stable and is answering questions appropriately with a normal affect and is alert and oriented x3 HEENT: normocephalic with normal external ears and nonicteric, oral mucosa moist and dentition normal for age, trachea midline with no large masses visualized Heart: RRR, no gallops murmurs or rubs, normal PMI with no thrills Lungs: normal excursions, no loud audible wheezing, no subcutaneous emphysema Abdomen: nondistended, no gross hepatosplenomegaly, no masses, no rigidity or rebound, no loud borborygmi Neuro: nonfocal, DELGADILLO, grossly normal sensation Musculoskeletal: good muscle tone, no fasciculations, normal gait Skin: pink warm and dry with no rashes or ecchymosis Vascular: good radial pulses, no ulceration, less than 2 second capillary refill in hand : deferred Urinary Catheter Management: Monsalve: Cath Placed During This Visit: yes, but has since been removed by the nurse Reason for Continuing Indwelling Catheter: Decision to DC Catheter Urinary Catheter Date of Insertion: 01/25/23 Urinary Catheter Time of Insertion: 15:00 Date Urinary Catheter Removed: 02/11/23 Time Urinary Catheter Discontinued: 15:30 Data 02/17/23 01:46 02/17/23 01:46 A&P Assessment and plan (1) SBO (small bowel obstruction): Does appear to have less output in canister and thinner. Passing flatus but no stool. Will start cleaning out colon from below and above. Begin to cycle on and off NG tube. Keep NG tube down. Patient to have TPN started by PICC line. (2) Hemodialysis status: Radio opaque area of distal dialysis tube has not moved. Radio opaque line appears to be embedded in tip of tube. Would keep dialysis catheter in place until not needed anymore. Would get post removal of dialysis tube with CXR to verify that radio opaque area has been completely removed from patient. Attestations Medical Necessity Statement*: Patient needs to be hospitalized because in part from SBO Coding Level of Care Code 75037 Diagnoses SBO (small bowel obstruction) K56.609 Hemodialysis status Z99.2
--- NOTE | 2023-02-17 15:24 | P.PN_ITS ---
Subjective Subjective: Today morning patient seen with multiple family members at bedside including her daughter, [id number] and sister. Patient is laying comfortably in bed on nasal cannula, AO x3 with NG tube in place. Overnight patient had some soft blood pressures with numbers in high 80s and low 90s after which she was started on gentle IV hydration with normal saline at 75 cc/h. Patient underwent second session of dialysis yesterday and 2.3 L ultrafiltrate was achieved. Patient tolerated dialysis well. Blood work today appreciated for stable CBC with white count trending down to 10.9, hemoglobin of 8.2, BMP showing improvement in creatinine down to 2.1, resolution of uremia, stable electrolytes, digoxin levels down to 1.8. Documented urine output last 24 hours of 300 cc. Around 250 cc drained from NG tube in last 24 hours. Medications: Reviewed: Yes Vitals/I&O/Wt Last Vital Signs Temp 98.5 F 02/17/23 12:00 Pulse 80 02/17/23 14:00 Resp 21 H 02/17/23 14:00 BP 109/61 02/17/23 12:00 Pulse Ox 96 02/17/23 14:00 O2 Del Method Nasal Cannula 02/17/23 14:00 O2 Flow Rate 4 02/17/23 14:00 FiO2 40 02/17/23 02:00 02/17/23 02/17/23 02/17/23 06:59 14:59 22:59 Intake Total 518 / 998 500 / 500 Output Total 0 / 2500 Balance 518 / -1502 500 / 500 Weight last 48 hrs Weight 82.554 kg Weight 87.3 kg Weight 86.183 kg Weight 86.8 kg Physical Exam Narrative: General: No acute distress, AO x3, NC oxygen supplementation, chronically sick appearing, HEENT: PERRLA, pupils bilaterally equal and reactive Chest: Bronchial breath sounds b/l coarse crackles with occasional rhonchi all over lung long CVS: S1-S2 irregularly irregular, soft pansystolic murmur at apex this, no tachycardia, no gallops, no rubs Abdomen: Soft, distended, nontender, bowel sounds sluggish Neuro: No focal deficits, no facial deformity, AO x3, power 5/5 in all limbs Urinary Catheter Management: Monsalve: Cath Placed During This Visit: yes, but has since been removed by the nurse Reason for Continuing Indwelling Catheter: Decision to DC Catheter Urinary Catheter Date of Insertion: 01/25/23 Urinary Catheter Time of Insertion: 15:00 Date Urinary Catheter Removed: 02/11/23 Time Urinary Catheter Discontinued: 15:30 Data 02/17/23 01:46 02/17/23 01:46 A&P Assessment and plan (1) SBO (small bowel obstruction): Appreciate surgical recommendations. Repeat abdominal series. Clamp NG tube for 12 hours after that placed on to gravity. Continue conservative treatment NPO. Start on TPN. Start at 10 cc/h, increase every 6 hours. Will request pharmacy for low potassium. Dietitian consult. Out of bed to chair. IV Protonix, Zofran as needed. (2) KATHI (acute kidney injury): Post 2 sessions of dialysis overall. BNP improved. Digoxin levels trending down. Most likely we will hold off on dialysis today. Appreciate nephrology recommendations. Monitor BMP daily for now. Continue with Bumex 1 mg IV daily. (3) Hyperkalemia: Resolved postdialysis. (4) Respiratory failure with hypoxia: Improving with dialysis. In setting of fluid overload from renal failure and diastolic heart failure. BiPAP as needed. Oxygen supplementation keeping saturation over 88%. Strict input output charting, daily weights. Bumex as above. (5) Atrial fibrillation with RVR: Heart rate now remains controlled. Hold off on any further digoxin given hyperkalemia and KATHI. Digoxin level is elevated. Continue to monitor daily. Continue with IV amiodarone at 0.5. Continue with metoprolol IV as needed to 2.5 every 6 as needed for heart rate of more than 100 to be held if systolic blood pressures less than 100 mmHg. Can switch to oral medications once tolerating oral medication (6) Supratherapeutic INR: Patient has a labile INR. Patient is supratherapeutic INR on presentation which had improved and then supratherapeutic again. Most likely in combination of med ical interactions. Discussed in detail with patient. Patient would benefit from switching from Coumadin to NOAC. Patient verbalized understanding and is agreeable. Patient will follow-up as an outpatient with cardiology who is [address] provider and can get medication for cheaper. INR stable. Target INR 2-3 given A-fib with RVR. Continue to hold off on heparin drip till INR remains more than 2. Check INR daily. On discharge she will start on Eliquis 5 mg twice daily. Hold off on any further Coumadin. (7) Anemia: Acute on chronic. Most likely a combination of iron deficiency anemia along with anemia of chronic disease. No active sign of bleeding for now other than microscopic hematuria. Patient did have labile INR with occasional hematuria during the hospitalization. Target hemoglobin more than 8. Post 1 unit of blood transfusion. Continue to monitor hemoglobin daily. Hemoglobin stable for now. (8) Cellulitis: Stable. Continue wound care with zinc oxide. Frequent repositioning. Out of bed to chair. MRSA negative. Stop vancomycin. Finished Cefepime on 02/12. Last dose of fluconazole on 02/15. Lower extremities do not appear to have active cellulitis beyond chronic bocanegra es, ulceration on anterior medial right lower leg. 1cm spot of eschar on lateral second left toe, she states has had that spot for a while. Keep monitoring. Does not appear like necrosis. (9) CHF (congestive heart failure), NYHA class III: Dialysis and Bumex as above. Fluid restriction up to 1500 cc. Monitor daily. Qualifiers: Congestive heart failure chronicity: acute on chronic Congestive heart failure type: diastolic Qualified Code(s): I50.33 - Acute on chronic diastolic (congestive) heart failure (10) Hyponatremia: Resolved (11) Wound, open, leg: (12) PAD (peripheral artery disease): (13) Hypertension: (14) Warfarin anticoagulation: (15) Carotid disease, bilateral: (16) COPD (chronic obstructive pulmonary disease): (17) Peripheral neuropathy: (18) Hemodialysis status: (19) Elevated digoxin level: Plan Hematuria: Monsalve replaced yesterday after small bowel obstruction. Continue to monitor for hematuria. DNR/DNI. N.p.o. Start on TPN. Therapeutic INR with suffice for DVT prophylaxis. Will start on heparin subcu versus Eliquis once INR less than 2 Protonix for PUD prophylaxis. Discharge plan: Discharge on hold given multiple active ongoing issues Patient's care plan discussed in detail with spouse and family members at bed side. All the questions were answered. CODE STATUS discussed in detail with patient again. She want to continue to remain DNR/DNI. Attestations Medical Necessity Statement*: Requires further hospitalization for management of acute renal failure requiring dialysis, digoxin toxicity, small bowel obstruction in a patient who was admitted for respiratory failure secondary to diastolic heart failure and atrial fibrillation with rapid ventricular response Coding Level of Care Code Critical Care >/= 30 minutes Critical care time (in minutes): 60 The high probability of a clinically significant, sudden or life threatening deterioration, as referenced in this documentation, required my full and direct attention, intervention and personal management. The critical care time shown is in addition to time spent performing any reported separately billable procedures and includes the following: [x] Data and vital sign review and interpretation [x ] Patient assessment, examination and intervention [x] Medication orders and management [x] Patient/Family updates as able [x] Care Coordination and Documentation. Diagnoses SBO (small bowel obstruction) K56.609 KATHI (acute kidney injury) N17.9 Hyperkalemia E87.5 Respiratory failure with hypoxia J96.91 Atrial fibrillation with RVR I48.91 Supratherapeutic INR R79.1 Anemia D64.9 Cellulitis L03.90 CHF (congestive heart failure), NYHA class III I50.33 Congestive heart failure chronicity: acute on chronic Congestive heart failure type: diastolic Hyponatremia E87.1 Wound, open, leg S81.809A PAD (peripheral artery disease) I73.9 Hypertension I10 Warfarin anticoagulation Z79.01 Carotid disease, bilateral I77.9 COPD (chronic obstructive pulmonary disease) J44.9 Peripheral neuropathy G62.9 Hemodialysis status Z99.2 Elevated digoxin level R78.89
[2023-02-17] MEDS: glycerin adult supp 1 EACH PR ×2 (15:34→15:35)
[2023-02-17] MEDS: polyethylene glycol 3350 Pkt 17 gm NG-TUBE (15:35)
[2023-02-17] MEDS: mineral oil ENEMA 133 mL PR (15:36)
[2023-02-17] MEDS: mineral oil 30 mL UDC NG-TUBE (15:56)
[2023-02-17] MEDS: simethicone 80 mg Chew PO ×2 (18:33→21:39)
[2023-02-17] MEDS: nystatin cream 30 gm 1 APPLIC TOPICAL (18:34)
[2023-02-17] MEDS: bumetanide 0.25 mg/mL SDV 4 mL 1 MG IVP (18:35)
--- NOTE | 2023-02-17 19:33 | PM.PN ---
Subjective Subjective: no new complaints Medications: Reviewed: Yes Vitals/I&O/Wt Last Vital Signs Temp 99.3 F 02/25/23 20:00 Pulse 92 02/25/23 20:00 Resp 32 H 02/25/23 20:00 BP 100/51 02/25/23 20:00 Pulse Ox 80 L 02/25/23 20:00 O2 Del Method Nasal Cannula 02/25/23 20:00 O2 Flow Rate 2 02/25/23 16:00 FiO2 60 02/25/23 12:00 Physical Exam Narrative: awake ,a lert no distress Urinary Catheter Management: Monsalve: Cath Placed During This Visit: yes, but has since been removed by the nurse Reason for Continuing Indwelling Catheter: Accurate Measurement of Urinary Output in Critically Ill Patients Urinary Catheter Date of Insertion: 01/25/23 Urinary Catheter Time of Insertion: 15:00 Date Urinary Catheter Removed: 02/11/23 Time Urinary Catheter Discontinued: 15:30 Data 02/25/23 02:10 02/25/23 02:10 A&P Assessment and plan (1) KATHI (acute kidney injury): [place] [address] Progress Note Signed Patient: Nimo Pressley MR#: [id number] : 1950 Age/Sex: 72 / F ADM Date: 01/25/23 Loc: [facility]? Room/Bed: [facility] Encounter Date: 02/16/[address]: Drew Richardson MD Report Number: [id number] Subjective Subjective:?? getting hD Vitals/I&O/Wt Last Vital Signs Temp ?98.8 F ?02/16/23 12:54 Pulse ?89 ?02/16/23 14:00 Resp ?19 H ?02/16/23 14:00 BP ?111/48 ?02/16/23 12:54 Pulse Ox ?96 ?02/16/23 14:00 O2 Del Method ?BiPAP ?02/16/23 14:00 O2 Flow Rate ?3 ?02/15/23 12:00 FiO2 ?40 ?02/16/23 14:00 ? 02/15/23 02/16/23 02/16/23 ? 22:59 06:59 14:59 Intake Total ? 300 / 1278.000 80 / 80 Output Total 1450 / 1900 2500 / 4400 ? Balance -1450 / -922.000 -2200 / -3122.000 80 / 80 Weight last 48 hrs Weight? 86.183 kg ? Weight? 86.8 kg ? Weight? 89.584 kg ? Weight? 90.407 kg ? Physical Exam Narrative:?? awake , alert , no distress HEENT S1S2 RRR per report Crackles per report + LEedema Urinary Catheter Management:?? Monsalve: Cath Placed During This Visit: yes, but has since been removed by the nurse Reason for Continuing Indwelling Catheter: Decision to DC Catheter Urinary Catheter Date of Insertion: 01/25/23 Urinary Catheter Time of Insertion: 15:00 Date Urinary Catheter Removed: 02/11/23 Time Urinary Catheter Discontinued: 15:30 Data 02/16/23 03:04? 02/16/23 03:04? Micro: Microbiology ?02/13/23 09:15 Urine Culture - Final ?Urine,Clean Catch ? A&P Assessment and plan (1) KATHI (acute kidney injury): Plan 1.? Acute on chronic kidney disease: Creatinine baseline in the mid 1 range.? Current KATHI likely multifactorial-possible ATN due to acute infection, toxicity, possible cardiorenal.? Patient has persistent hyperkalemia and volume overload with no response to diuretics at this point. -S/P? temporary hemodialysis catheter placement and s/p HD 02/15 , and 02/16 -Reassess daily for HD needs. 2.? Persistent hyperkalemia , multifactorial from KATHI and digitoxicity, improved 3.? CHF: On Bumex drip with poor response at this time, HD as above 4.? Acute on chronic respiratory failure: On BiPAP 6.? Right extremity cellulitis 7.? A-fib with RVR 8.? Small bowel obstruction, followed by surgery Patient evaluated using audiovisual cart.? Time spent 45 minute Attestations Medical Necessity Statement*: per medicine Coding Level of Care Code Acute Code for Chg Fwd Diagnoses KATHI (acute kidney injury) N17.9
[2023-02-17] MEDS: ropinirole 0.25 mg Tablet 0.5 MG PO (21:39)
[2023-02-17] MEDS: ondansetron 2 mg/ML SDV 2 mL 4 MG IVP (23:16)
[2023-02-18] VITALS (20 sets, daily range): BP systolic 104–138; BP diastolic 43–77; PULSE 60–95; RESP 18–31; TEMP 36.4–37; O2SAT 78–97
[2023-02-18] MEDS: ALPRAZolam 0.5 mg Tablet 0.25 MG PO (00:23)
[2023-02-18] MEDS: levalbuterol 0.63 mg/3 mL Neb INHALATION ×4 (02:47→20:43)
[2023-02-18] MEDS: ipratropium 0.5 mg/2.5 mL Neb INHALATION ×4 (02:47→20:43)
[2023-02-18 04:46] LABS: Basophils # 0.1 10^3/uL (0.0-0.1); Basophils % 0.7 %; Eosinophils # 0.5 10^3/uL (0.0-0.8); Eosinophils % 3.3 %; Hematocrit 29.6 % (37.0-47.0); Hemoglobin 8.8 g/dL (11.5-15.3); Lymphocytes % 6.1 %; Mean Corpuscular HGB Conc 29.7 g/dL (30.0-36.0); Mean Corpuscular Hemoglobin 27.2 pg (28.0-34.0); Mean Corpuscular Volume 91.4 fl (81-99); Mean Platelet Volume 11.5 fL (7.4-10.4); Monocytes # 1.3 10^3/uL (0.2-0.9); Monocytes % 8.1 %; Neutrophils % 80.5 %; Nucleated Red Blood Cells % 0 %; Platelet Count 206 10^3/cmm (130-400); Red Blood Count 3.24 10^6/uL (4.1-5.3); Red Cell Distribution Width 17.6 % (12.1-15.1); White Blood Count 15.7 10^3/uL (4.0-10.0)
[2023-02-18 05:41] LABS: INR 2.42 (0.8-1.2)
[2023-02-18 05:46] LABS: Alanine Aminotransferase 16 U/L (0-33); Albumin Level 3.5 g/dL (3.5-5.2); Alkaline Phosphatase 127 U/L (35-105); Anion Gap 16.4 (5-19); Aspartate Amino Transferase 17 U/L (0-32); Blood Urea Nitrogen 30 mg/dL (8-23); Calcium 8.5 mg/dL (8.5-10.5); Carbon Dioxide 28 mmol/L (22-29); Chloride 97 mmol/L (98-107); Glucose 143 mg/dL (65-115); Osmolality Calculated 295 mOsm/kg (285-295); Potassium 3.4 mmol/L (3.5-5.1); Sodium 138 mmol/L (136-145); Total Bilirubin 0.7 mg/dL (0.15-1.2); Total Protein 6.5 g/dL (6.6-8.7)
[2023-02-18 05:47] LABS: Digoxin 1.3 ng/mL (0.6-1.2)
[2023-02-18] MEDS: pantoprazole 40 mg SDV IVP ×2 (06:23→19:04)
[2023-02-18] MEDS: budesonide 0.5 mg/2 mL Neb INHALATION ×2 (07:39→20:43)
--- NOTE | 2023-02-18 10:00 | XRR_ITS ---
PROCEDURE INFORMATION: Exam: XR Abdomen Exam date and time: 02/18/2023 6:23 AM Age: 72 years old Clinical indication: Condition or disease; Intestinal condition; Obstruction; Additional info: Partial sbo, flat and upright TECHNIQUE: Imaging protocol: Radiologic exam of the abdomen. Views: 2 Views. Upright and supine views. COMPARISON: CR (ABDOMEN, ) 02/17/2023 11:16 AM FINDINGS: Tubes, catheters and devices: Feeding tube is in satisfactory position. Lungs: Bibasilar atelectasis. Possible small right pleural effusion. Gastrointestinal tract: Multiple air distended loops of small bowel noted. No air-fluid levels seen. Air and stool is seen within the colon. Intraperitoneal space: Normal. No free air. Bones/joints: Degenerative changes of the spine seen. Vertebral augmentation cement noted in the lower lumbar spine. XR/XR abdomen min 2V 17607 IMPRESSION: 1. Persistent air distended loops of small bowel, which can be seen with bowel obstruction, ileus or enteritis. 2. Imaging findings suggestive of pulmonary congestion with small right pleural effusion.
--- NOTE | 2023-02-18 10:16 | PM.PN ---
Subjective Subjective: ON bipap Medications: Reviewed: Yes Vitals/I&O/Wt Last Vital Signs Temp 97.5 F L 02/18/23 07:47 Pulse 63 02/18/23 07:47 Resp 26 H 02/18/23 07:47 BP 120/53 02/18/23 07:47 Pulse Ox 93 02/18/23 07:47 O2 Del Method BiPAP 02/18/23 07:47 O2 Flow Rate 5 02/18/23 03:28 FiO2 40 02/18/23 07:39 02/17/23 02/18/23 02/18/23 22:59 06:59 14:59 Intake Total 452.172 / 952.172 160 / 1112.172 Output Total 50 / 50 0 / 50 Balance 402.172 / 902.172 160 / 1062.172 Weight last 48 hrs Weight 85.531 kg Weight 82.554 kg Weight 87.3 kg Physical Exam Narrative: awake , alert , no distress HEENT S1S2 RRR per report Crackles per report + LEedema Urinary Catheter Management: Monsalve: Cath Placed During This Visit: yes, but has since been removed by the nurse Reason for Continuing Indwelling Catheter: Decision to DC Catheter Urinary Catheter Date of Insertion: 01/25/23 Urinary Catheter Time of Insertion: 15:00 Date Urinary Catheter Removed: 02/11/23 Time Urinary Catheter Discontinued: 15:30 Data 02/18/23 04:16 02/18/23 05:13 A&P Assessment and plan (1) KATHI (acute kidney injury): Plan 1. Acute on chronic kidney disease: Creatinine baseline in the mid 1 range. Current KATHI likely multifactorial-possible ATN due to acute infection, toxicity, possible cardiorenal. Patient has persistent hyperkalemia and volume overload with no response to diuretics at this point. -S/P temporary hemodialysis catheter placement and s/p HD 02/15 , and 02/16 and plan for HD again today - no renal recovery yet -Reassess daily for HD needs. 2. Persistent hyperkalemia , multifactorial from KATHI and digitoxicity, improved 3. CHF: poor response to diuretics , HD as above 4. Acute on chronic respiratory failure: On BiPAP 6. Right extremity cellulitis 7. A-fib with RVR 8. Small bowel obstruction, followed by surgery Patient evaluated using audiovisual cart. Time spent 45 minutes Attestations Medical Necessity Statement*: per medicine Coding Level of Care Code Acute Code for Chg Fwd Diagnoses KATHI (acute kidney injury) N17.9
--- NOTE | 2023-02-18 10:27 | PC.NURSE ---
Amiodarone on hold notified dr nunez that pt is having low 60s HR, going to get her HD. Notified dr if we can hold it for the time being during her dialysis treatment. Received reply from voalte message that it is ok to hold it.
--- NOTE | 2023-02-18 10:30 | PC.NUTR ---
Consult for TPN received. Recommend TPN goal rate of 42 mls/hr with fat emulsions 20% 100 mls Q12H, MV 10 mls/day and standard electrolytes. Details in RD assessment.
--- NOTE | 2023-02-18 11:08 | PC.NURSE ---
Hold Amio drip notified hospitalist on pt's HR is in low 50s to 60s, drop to 45. Still on Amio drip 0.[address] Delgadillo to hold the drip for now. Pt is also getting ready to got to dialysis. ushered via bed.
--- NOTE | 2023-02-18 11:17 | PC.NURSE ---
0730 Am shift changed/ TPN rate Night nurse missed TPN rate increase. Titrated tpn per order to 30 ml at this time. Night nurse has the MAR changed but unable to saved. this nurse documented it in mar to reflect night nurse titration this morning. Pharmacy is aware.
--- NOTE | 2023-02-18 15:00 | PC.NURSE ---
Pt got back from hemodialysis Dr Delgadillo notified this nurse that pt amiodarone can be resume as 0.5 mg rate. TPN and Fat emulsions are retime due to pt being in the dialysis room. Pt NGT is attached again to LIS as ordered. Bipap re applied.
[2023-02-18] MEDS: heparin, porcine 1,000 unit/mL INJ 10 mL 10000 UNIT INTRACATH (15:01)
[2023-02-18] MEDS: heparin, porcine 1,000 unit/mL INJ 10 mL 1000 UNIT IV (15:02)
[2023-02-18] MEDS: mineral oil 30 mL UDC NG-TUBE (15:03)
[2023-02-18] MEDS: polyethylene glycol 3350 Pkt 17 gm NG-TUBE (15:03)
[2023-02-18] MEDS: albumin 12.5 GM/50 ML VIAL IV ×2 (15:04→17:12)
[2023-02-18] MEDS: AA-Dex 5%-20% w/Lytes 1,000 ML 40 ML IV (15:07)
[2023-02-18] MEDS: midodrine 5 mg TABLET PO ×2 (16:00→21:01)
[2023-02-18] MEDS: acetaminophen 325 mg Tablet 650 MG PO (16:49)
[2023-02-18] MEDS: lidocaine 5% Patch 1 PATCH TOPICAL (16:51)
[2023-02-18] MEDS: bisacodyl 10 mg Supp PR (16:52)
--- NOTE | 2023-02-18 17:27 | PM.PN ---
Subjective Subjective: Patient denies having BM but is passing flatus Vitals/I&O/Wt Last Vital Signs Temp 98.6 F 02/18/23 16:03 Pulse 77 02/18/23 16:03 Resp 18 02/18/23 16:03 BP 105/45 02/18/23 16:03 Pulse Ox 92 02/18/23 16:00 O2 Del Method High Flow Nasal Cannula 02/18/23 16:00 O2 Flow Rate 5 02/18/23 03:28 FiO2 60 02/18/23 15:03 02/18/23 02/18/23 02/18/23 06:59 14:59 22:59 Intake Total 160 / 1162.172 605.457 / 605.457 928.5 / 1533.957 Output Total 0 / 50 522 / 522 Balance 160 / 1112.172 605.457 / 605.457 406.5 / 1011.957 Weight last 48 hrs Weight 195 lb 8.8 oz Weight 188 lb 9 oz Weight 182 lb Physical Exam Narrative: Patient is a well developed well nourished and in NAD and is afebrile with vitals stable and is answering questions appropriately with a normal affect and is alert and oriented x3 HEENT: normocephalic with normal external ears and nonicteric, oral mucosa moist and dentition normal for age, trachea midline with no large masses visualized Heart: RRR, no gallops murmurs or rubs, normal PMI with no thrills Lungs: normal excursions, no loud audible wheezing, no subcutaneous emphysema Abdomen: nondistended, no gross hepatosplenomegaly, no masses, no rigidity or rebound, no loud borborygmi Neuro: nonfocal, DELGADILLO, grossly normal sensation Musculoskeletal: good muscle tone, no fasciculations, normal gait Skin: pink warm and dry with no rashes or ecchymosis Vascular: good radial pulses, no ulceration, less than 2 second capillary refill in hand : deferred Urinary Catheter Management: Monsalve: Cath Placed During This Visit: yes, but has since been removed by the nurse Reason for Continuing Indwelling Catheter: Decision to DC Catheter Urinary Catheter Date of Insertion: 01/25/23 Urinary Catheter Time of Insertion: 15:00 Date Urinary Catheter Removed: 02/11/23 Time Urinary Catheter Discontinued: 15:30 Data 02/18/23 04:16 02/18/23 05:13 A&P Assessment and plan (1) SBO (small bowel obstruction): Continue to cycle NG on and off suction. She is on TPN. Her creatinine went up but potassium fell. She may have passed some flatus but not stool Will continue to clean out from above and below. Attestations Medical Necessity Statement*: Patient with sbo and ATN and needs hospitalization and dialysis. Coding Level of Care Code 22102 Diagnoses SBO (small bowel obstruction) K56.609
--- NOTE | 2023-02-18 17:39 | P.PN_ITS ---
Subjective Subjective: She states she is feeling hungry. No abdominal pain. Possibly passed some gas, no BM. States rash on her bottom pretty much resolved. Vitals/I&O/Wt Last Vital Signs Temp 98.6 F 02/18/23 16:03 Pulse 77 02/18/23 16:03 Resp 18 02/18/23 16:03 BP 105/45 02/18/23 16:03 Pulse Ox 92 02/18/23 16:00 O2 Del Method High Flow Nasal Cannula 02/18/23 16:00 O2 Flow Rate 5 02/18/23 03:28 FiO2 60 02/18/23 15:03 02/18/23 02/18/23 02/18/23 06:59 14:59 22:59 Intake Total 160 / 1162.172 605.457 / 605.457 928.5 / 1533.957 Output Total 0 / 50 522 / 522 Balance 160 / 1112.172 605.457 / 605.457 406.5 / 1011.957 Weight last 48 hrs Weight 88.7 kg Weight 85.531 kg Weight 82.554 kg Physical Exam Narrative: Reclined in bed. Visited by family including . Const: COMMON NORMALS: patient oriented x3 and alert GENERAL APPEARANCE: cooperative ORIENTATION/CONSCIOUSNESS: Yes awake HENMT: COMMON NORMALS: oropharynx normal Neck/C-Spine: COMMON NORMALS: no JVD Resp: COMMON NORMALS: normal respiratory effort and clear to auscultation bilaterally AUSCULTATION: clear to auscultation bilaterally and diminished lung sounds Cardio: COMMON NORMALS: no JVD, regular rhythm, S1 normal heart sound present, S2 normal heart sound present and No murmurs present (Cardio) RHYTHM: regular rhythm HEART SOUNDS: S1 normal heart sound present and S2 normal heart sound present GI: COMMON NORMALS: Soft to palpation and non-tender PALPATION: Yes Soft to palpation OTHER: Diminished BS. Extremity: COMMON NORMALS: no joint enlargement and no pedal edema NARRATIVE EXTREMITY EXAM: LE no erythema but chronic venous stasis, purplish discoloration bilateral lower extremities on the shins, perfused appearing. Ankles. Dry scaly skin. Healing ulceration on anteromedial right lower leg, small ulceration 1 x 2 cm, shallow without tunneling or undermining, small meta slough at the base. Neuro: COMMON NORMALS: patient oriented x3 and moves all extremities SENSORIUM/ORIENTATION: Yes alert Skin: COMMON NORMALS: no rashes or lesions noted GENERAL SKIN EXAM: no rashes or lesions noted OTHER: Wrinkling of bilateral lower extremity skin over shins. Violaceous discolo ration. No erythema. Dressings in place. Skin on buttocks, post thighs, groins not seen. Urinary Catheter Management: Monsalve: Cath Placed During This Visit: yes, but has since been removed by the nurse Reason for Continuing Indwelling Catheter: Decision to DC Catheter Urinary Catheter Date of Insertion: 01/25/23 Urinary Catheter Time of Insertion: 15:00 Date Urinary Catheter Removed: 02/11/23 Time Urinary Catheter Discontinued: 15:30 Data 02/18/23 04:16 02/18/23 05:13 A&P Assessment and plan (1) SBO (small bowel obstruction): So far passing some flatus possibly, no bowel movement. Sluggish bowel sounds. States she is feeling hungry. Surgery assessment/documentation appreciated. She has had additional bowel regimen today. KUB results noted, persistent air distended loops of small bowel. Maintain NGT, continue decompression as per surgery. In case amiodarone is contributing to constipation/ileus, stop infusion. Continue TPN. Dietary documentation noted, goal rate 42 mL/h. At risk of fluid overload, monitor with TPN infusion. Out of bed to chair. IV Protonix, Zofran as needed. Discussed with case management. (2) KATHI (acute kidney injury): Nephrology documentation appreciated. Hemodialysis today. Nephrology monitoring for renal recovery. Continue to monitor intake and output. Reassess chemistry Digoxin level noted, 1.3. Continue with Bumex 1 mg IV daily. (3) Respiratory failure with hypoxia: Additional dialysis today. BiPAP as needed. Oxygen supplementation keeping saturation over 88%. Strict input output charting, daily weights. Anuric. Bumex held. (4) Atrial fibrillation with RVR: Persistent ileus. Hold amiodarone for now. Continue IV metoprolol as per parameters. Monitor heart rate. Off warfarin. Follow-up INR. Over UP junction. Dig level appreciated 1.3. Heart rate now remains controlled. (5) Supratherapeutic INR: INR noted, 2.46. Continue off warfarin. Consideration of starting alternative anticoagulant once INR declines. Follow INR. Patient has a labile INR. Patient is supratherapeutic INR on presentation which had improved and then supratherapeutic again. Most likely in combination of medical interactions. On discharge she will start on Eliquis 5 mg twice daily. Hold off on any further Coumadin. (6) Anemia: Hemoglobin 8.8. Target hemoglobin more than 8. Post 1 unit of blood transfusion. Continue to monitor hemoglobin daily. Hemoglobin stable for now. (7) Hyperkalemia: Resolved postdialysis. (8) Cellulitis: Note significant improvement in symptoms. Completed antibiotics, antifungal. Stable. Continue wound care with zinc oxide. Frequent repositioning. Out of bed to chair. MRSA negative. Stop vancomycin. Finished Cefepime on 02/12. Last dose of fluconazole on 02/15. Lower extremities do not appear to have active cellulitis beyond chronic changes, ulceration on anterior medial right lower leg. 1cm spot of eschar on lateral second left toe, she states has had that spot for a while. Keep monitoring. Does not appear like necrosis. (9) CHF (congestive heart failure), NYHA class III: Dialysis. Monitor urine output. Currently anuric, Bumex held for now. Fluid restriction up to 1500 cc. Monitor daily. Qualifiers: Congestive heart failure chronicity: acute on chronic Congestive heart failure type: diastolic Qualified Code(s): I50.33 - Acute on chronic diastolic (congestive) heart failure (10) Hyponatremia: Resolved (11) Wound, open, leg: (12) PAD (peripheral artery disease): (13) Hypertension: (14) Warfarin anticoagulation: (15) Carotid disease, bilateral: (16) COPD (chronic obstructive pulmonary disease): (17) Peripheral neuropathy: (18) Hemodialysis status: (19) Elevated digoxin level: Plan Hematuria: Monsalve replaced after small bowel obstruction. Continue to monitor for hematuria. DNR/DNI. N.p.o. Start on TPN. Therapeutic INR with suffice for DVT prophylaxis. Protonix for PUD prophylaxis. Discharge plan: Discharge on hold given multiple active ongoing issues Attestations Medical Necessity Statement*: Continue admission for assessment management of small bowel obstruction, possibly partial, possible amiodarone toxicity, holding medication, continued atrial fibrillation control requiring IV medications due to lack of oral intake, continue dialysis with KATHI, anuria, CHF. Diagnoses SBO (small bowel obstruction) K56.609 KATHI (acute kidney injury) N17.9 Respiratory failure with hypoxia J96.91 Atrial fibrillation with RVR I48.91 Supratherapeutic INR R79.1 Anemia D64.9 Hyperkalemia E87.5 Cellulitis L03.90 CHF (congestive heart failure), NYHA class III I50.33 Congestive heart failure chronicity: acute on chronic Congestive heart failure type: diastolic Hyponatremia E87.1 Wound, open, leg S81.809A PAD (peripheral artery disease) I73.9 Hypertension I10 Warfarin anticoagulation Z79.01 Carotid disease, bilateral I77.9 COPD (chronic obstructive pulmonary disease) J44.9 Peripheral neuropathy G62.9 Hemodialysis status Z99.2 Elevated digoxin level R78.89
[2023-02-18] MEDS: nystatin cream 30 gm 1 APPLIC TOPICAL (19:06)
[2023-02-18] MEDS: ropinirole 0.25 mg Tablet 0.5 MG PO (21:01)
[2023-02-19] VITALS (14 sets, daily range): BP systolic 103–133; BP diastolic 47–70; PULSE 61–100; RESP 20–33; TEMP 36.4–37.8; O2SAT 90–98; BMI 33.3
[2023-02-19] MEDS: ipratropium 0.5 mg/2.5 mL Neb INHALATION ×4 (02:18→19:37)
[2023-02-19] MEDS: levalbuterol 0.63 mg/3 mL Neb INHALATION ×4 (02:18→19:37)
[2023-02-19] MEDS: pantoprazole 40 mg SDV IVP ×2 (05:02→18:30)
[2023-02-19 05:20] LABS: Basophils # 0.1 10^3/uL (0.0-0.1); Basophils % 0.7 %; Eosinophils # 0.5 10^3/uL (0.0-0.8); Eosinophils % 4.5 %; Hemoglobin 8.2 g/dL (11.5-15.3); Lymphocytes # 0.9 10^3/uL (0.8-4.8); Lymphocytes % 7.9 %; Mean Corpuscular HGB Conc 31.5 g/dL (30.0-36.0); Mean Corpuscular Hemoglobin 28.6 pg (28.0-34.0); Mean Corpuscular Volume 90.6 fl (81-99); Mean Platelet Volume 11.7 fL (7.4-10.4); Monocytes # 0.8 10^3/uL (0.2-0.9); Monocytes % 7.2 %; Neutrophils # 9.03 10^3/uL (1.8-7.7); Neutrophils % 78.8 %; Nucleated Red Blood Cells % 0 %; Platelet Count 163 10^3/cmm (130-400); Red Blood Count 2.87 10^6/uL (4.1-5.3); Red Cell Distribution Width 17.4 % (12.1-15.1); White Blood Count 11.5 10^3/uL (4.0-10.0)
[2023-02-19 05:52] LABS: Alanine Aminotransferase 12 U/L (0-33); Albumin Level 3.5 g/dL (3.5-5.2); Alkaline Phosphatase 123 U/L (35-105); Anion Gap 12.3 (5-19); Aspartate Amino Transferase 14 U/L (0-32); Blood Urea Nitrogen 20 mg/dL (8-23); Calcium 8.3 mg/dL (8.5-10.5); Carbon Dioxide 31 mmol/L (22-29); Chloride 96 mmol/L (98-107); Globulin 2.5 g/dL (1.3-4.6); Glucose 245 mg/dL (65-115); Osmolality Calculated 293 mOsm/kg (285-295); Potassium 3.3 mmol/L (3.5-5.1); Sodium 136 mmol/L (136-145); Total Bilirubin 0.7 mg/dL (0.15-1.2)
[2023-02-19 05:53] LABS: Digoxin 0.7 ng/mL (0.6-1.2)
--- NOTE | 2023-02-19 06:08 | PC.NURSE ---
Total output from NG tube this shift, 160 mls.
--- NOTE | 2023-02-19 07:45 | ECG_ITS ---
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 Measurements Intervals [place] Rate: 67 P: 0 SC: 0 QRS: 45 QRSD: 69 T: -46 QT: 379 QTc: 402 Interpretive Statements ATRIAL FIBRILLATION LOW QRS VOLTAGE [QRS DEFLECTION < 0.5/1.0 mV IN LIMB/CHEST LEADS] MODERATE T-WAVE ABNORMALITY, CONSIDER ANTEROLATERAL ISCHEMIA [-0.1+ mV T-WAVE IN V3-V6] Compared to ECG 02/16/2023 09:51:35 Possible ischemia now present T-wave abnormality still present Electronically Signed On 02-19-2023 8:28:31 CDT by Itz Hale M.D. [id number]
[2023-02-19] MEDS: budesonide 0.5 mg/2 mL Neb INHALATION ×2 (08:19→19:37)
[2023-02-19] MEDS: lidocaine 5% Patch 1 PATCH TOPICAL (09:30)
[2023-02-19] MEDS: bisacodyl 10 mg Supp PR (09:30)
[2023-02-19] MEDS: nystatin cream 30 gm 1 APPLIC TOPICAL ×2 (09:41→18:32)
--- NOTE | 2023-02-19 10:50 | PC.SOCIAL ---
IMM Updated Updated pt & family on IMM. No questions voiced. Provided pt a copy. Initialed, dated, & timed copy in chart.
--- NOTE | 2023-02-19 12:40 | P.PN_ITS ---
Subjective Subjective: Irritation, but has had 2 small BMs. Passing some flatus. He denies abdominal pain. States overall is doing all right. Medications: Reviewed: Yes Vitals/I&O/Wt Last Vital Signs Temp 98.8 F 02/19/23 12:00 Pulse 77 02/19/23 12:00 Resp 33 H 02/19/23 12:00 BP 119/50 02/19/23 12:00 Pulse Ox 96 02/19/23 12:00 O2 Del Method CPAP 02/19/23 12:00 O2 Flow Rate 5 02/18/23 03:28 FiO2 50 02/19/23 12:00 02/18/23 02/19/23 02/19/23 22:59 06:59 14:59 Intake Total 1188.5 / 1793.957 Output Total 712 / 712 50 / 762 Balance 476.5 / 1081.957 -50 / 1031.957 Weight last 48 hrs Weight 88.082 kg Weight 88.7 kg Weight 85.531 kg Physical Exam Narrative: Reclined in bed. Visited by family including . Const: COMMON NORMALS: patient oriented x3 and alert GENERAL APPEARANCE: cooperative ORIENTATION/CONSCIOUSNESS: Yes awake HENMT: COMMON NORMALS: oropharynx normal Neck/C-Spine: COMMON NORMALS: no JVD Resp: COMMON NORMALS: normal respiratory effort and clear to auscultation bilaterally AUSCULTATION: clear to auscultation bilaterally and diminished lung sounds Cardio: COMMON NORMALS: no JVD, regular rhythm, S1 normal heart sound present, S2 normal heart sound present and No murmurs present (Cardio) RHYTHM: regular rhythm HEART SOUNDS: S1 normal heart sound present and S2 normal heart sound present GI: COMMON NORMALS: Normal to inspection, nondistended, normoactive bowel sounds present, Soft to palpation and non-tender PALPATION: Yes Soft to palpation OTHER: Sluggish BS. Extremity: COMMON NORMALS: no joint enlargement and no pedal edema NARRATIVE EXTREMITY EXAM: LE no erythema but chronic venous stasis, purplish discoloration bilateral lower extremities on the shins, perfused appearing. Ankles. Dry scaly skin. Healing ulceration on anteromedial right lower leg, small ulceration 1 x 2 cm, shallow without tunneling or undermining, small meta slough at the base. Neuro: COMMON NORMALS: patient oriented x3 and moves all extremities SENSORIUM/ORIENTATION: Yes alert Skin: COMMON NORMALS: no rashes or lesions noted GENERAL SKIN EXAM: no rashes or lesions noted OTHER: Wrinkling of bilateral lower extremity skin over shins. Violaceous discoloration. No erythema. Dressings in place. Skin on buttocks, post thighs, groins not seen. Urinary Catheter Management: Monsalve: Cath Placed During This Visit: yes, but has since been removed by the nurse Reason for Continuing Indwelling Catheter: Decision to DC Catheter Urinary Catheter Date of Insertion: 01/25/23 Urinary Catheter Time of Insertion: 15:00 Date Urinary Catheter Removed: 02/11/23 Time Urinary Catheter Discontinued: 15:30 Data 02/19/23 05:02 02/19/23 05:02 A&P Assessment and plan (1) SBO (small bowel obstruction): Had 2 small BMs. He is still having eructation. Bowel sounds are sluggish. Some flatus however. Continue bowel regimen. Maintain NGT as per surgery. Discussed with her and family regarding stopped amiodarone. At risk of tachycardia with A-fib is currently unable to take oral medications reliably. Discussed low-dose metoprolol IV to help with rate control if blood pressure allows. She has had additional bowel regimen today. KUB results noted, persistent air distended loops of small bowel. Continue TPN. Goal rate 42 mL/h. At risk of fluid overload with underlying CHF, anuria, monitor with TPN infusion. Out of bed to chair. IV Protonix, Zofran as needed. Discussed with case management, so far discharge deferred. (2) KATHI (acute kidney injury): Monitor urine output. Producing some minimal urine today. Repeat chemistry requested. Nephrology monitoring for renal recovery. Continue to monitor intake and output. Digoxin level 1.3 on 02/18 will not get any further. Continue with Bumex 1 mg IV daily. (3) Respiratory failure with hypoxia: X-ray 02/18 morning noted with pulmonary congestive changes, small right pleural effusion. Had undergone dialysis yesterday. Bumex was held due to anuria. Continue to reassess, consider resuming. Continue oxygen support, NIPPV support. Oxygen supplementation keeping saturation over 88%. Strict input output charting, daily weights. Anuric. Bumex held. (4) Atrial fibrillation with RVR: Persistent ileus. Stopped amiodarone for now. Continue IV metoprolol as per parameters. Monitor heart rate. Off warfarin. Follow-up INR. Avoid digoxin. Heart rate now remains controlled. (5) Supratherapeutic INR: INR noted, 2.9. Stop amiodarone. Repeat INR requested. Follow-up CBC r equested. Continue off warfarin. Consideration of starting alternative anticoagulant once INR declines. Follow INR. Patient has a labile INR. Patient is supratherapeutic INR on presentation which had improved and then supratherapeutic again. Most likely in combination of medical interactions. On discharge she will start on Eliquis 5 mg twice daily. Hold off on any f urther Coumadin. (6) Anemia: Hemoglobin hovering around 8 marked. Today noted 8.2. Target hemoglobin more than 8. Post 1 unit of blood transfusion. Continue to monitor hemoglobin daily. Hemoglobin stable for now. (7) Hyperkalemia: Resolved postdialysis. (8) Cellulitis: Note significant improvement in symptoms. Completed antibiotics, antifungal. Stable. Continue wound care with zinc oxide. Frequent repositioning. Out of bed to chair. MRSA negative. Stop vancomycin. Finished Cefepime on 02/12. Last dose of fluconazole on 02/15. Lower extremities do not appear to have active cellulitis beyond chronic changes, ulceration on anterior medial right lower leg. 1cm spot of eschar on lateral second left toe, she states has had that spot for a while. Keep monitoring. Does not appear like necrosis. (9) CHF (congestive heart failure), NYHA class III: Dialysis. Monitor urine output. Currently anuric, Bumex held for now. Fluid restriction up to 1500 cc. Monitor daily. Qualifiers: Congestive heart failure chronicity: acute on chronic Congestive heart failure type: diastolic Qualified Code(s): I50.33 - Acute on chronic diastolic (congestive) heart failure (10) Hyponatremia: Resolved (11) Wound, open, leg: (12) PAD (peripheral artery disease): (13) Hypertension: (14) Warfarin anticoagulation: (15) Carotid disease, bilateral: (16) COPD (chronic obstructive pulmonary disease): (17) Peripheral neuropathy: (18) Hemodialysis status: (19) Elevated digoxin level: Plan Hematuria: Monsalve replaced after small bowel obstruction. Continue to monitor for hematuria. DNR/DNI. N.p.o. Start on TPN. Therapeutic INR with suffice for DVT prophylaxis. Protonix for PUD prophylaxis. Discharge plan: Discharge on hold given multiple active ongoing issues Attestations Medical Necessity Statement*: Continue admission for assessment management of SBO, renal failure, and lady with CHF, continue IV metoprolol while medications adjusted for atrial fibrillation with discontinuation of amiodarone infusion. Diagnoses SBO (small bowel obstruction) K56.609 KATHI (acute kidney injury) N17.9 Respiratory failure with hypoxia J96.91 Atrial fibrillation with RVR I48.91 Supratherapeutic INR R79.1 Anemia D64.9 Hyperkalemia E87.5 Cellulitis L03.90 CHF (congestive heart failure), NYHA class III I50.33 Congestive heart failure chronicity: acute on chronic Congestive heart failure type: diastolic Hyponatremia E87.1 Wound, open, leg S81.809A PAD (peripheral artery disease) I73.9 Hypertension I10 Warfarin anticoagulation Z79.01 Carotid disease, bilateral I77.9 COPD (chronic obstructive pulmonary disease) J44.9 Peripheral neuropathy G62.9 Hemodialysis status Z99.2 Elevated digoxin level R78.89
--- NOTE | 2023-02-19 16:07 | PM.PN ---
Subjective Subjective: No complaints Vitals/I&O/Wt Last Vital Signs Temp 98.8 F 02/19/23 12:00 Pulse 82 02/19/23 13:44 Resp 26 H 02/19/23 13:44 BP 119/50 02/19/23 12:00 Pulse Ox 93 02/19/23 13:44 O2 Del Method Nasal Cannula 02/19/23 13:44 O2 Flow Rate 4 02/19/23 13:44 FiO2 50 02/19/23 12:00 02/19/23 02/19/23 02/19/23 06:59 14:59 22:59 Intake Total 100 / 100 Output Total 50 / 762 415 / 415 Balance -50 / 1031.957 100 / 100 -415 / -315 Weight last 48 hrs Weight 194 lb 3 oz Weight 195 lb 8.8 oz Weight 188 lb 9 oz Physical Exam Narrative: Patient is a well developed well nourished and in NAD and is afebrile with vitals stable and is answering questions appropriately with a normal affect and is alert and oriented x3 HEENT: normocephalic with normal external ears and nonicteric, oral mucosa moist and dentition normal for age, trachea midline with no large masses visualized Heart: RRR, no gallops murmurs or rubs, normal PMI with no thrills Lungs: normal excursions, no loud audible wheezing, no subcutaneous emphysema Abdomen: nondistended, no gross hepatosplenomegaly, no masses, no rigidity or rebound, no loud borborygmi Neuro: nonfocal, DELGADILLO, grossly normal sensation Musculoskeletal: good muscle tone, no fasciculations, normal gait Skin: pink warm and dry with no rashes or ecchymosis Vascular: good radial pulses, no ulceration, less than 2 second capillary refill in hand : deferred Urinary Catheter Management: Monsalve: Cath Placed During This Visit: yes, but has since been removed by the nurse Reason for Continuing Indwelling Catheter: Decision to DC Catheter Urinary Catheter Date of Insertion: 01/25/23 Urinary Catheter Time of Insertion: 15:00 Date Urinary Catheter Removed: 02/11/23 Time Urinary Catheter Discontinued: 15:30 Data 02/19/23 05:02 02/19/23 05:02 A&P Assessment and plan (1) SBO (small bowel obstruction): Less gross output from NG with almost water consistency and not much bile and not thick. She has passed a small amount of solid stool. Continue to clean GI tract out from above and below. She is requiring Bipap use for SOB due to CHF. SHe was last dialyzed yesterday. Will likely remove dialysis catheter later this week and will get post removal CXR to make sure radio opaque in distal drain tubing tip has been completely removed. Will keep NG tube down and will remove NG once it is assured that GI tract is working. She continues on TPN from PICC line. Attestations Medical Necessity Statement*: Patient is hospitalized because need for dialysis for ATN and SBO and NG decompression of GI tract. Coding Level of Care Code 98923 Diagnoses SBO (small bowel obstruction) K56.609
[2023-02-19] MEDS: AA-Dex 5%-20% w/Lytes 1,000 ML 42 ML IV (16:56)
[2023-02-20] VITALS (16 sets, daily range): BP systolic 111–137; BP diastolic 50–77; PULSE 67–95; RESP 18–28; TEMP 36.9–38.1; O2SAT 90–97
[2023-02-20] MEDS: ipratropium 0.5 mg/2.5 mL Neb INHALATION ×3 (01:54→14:13)
[2023-02-20] MEDS: levalbuterol 0.63 mg/3 mL Neb INHALATION ×3 (01:54→14:13)
[2023-02-20 04:20] LABS: Basophils # 0.1 10^3/uL (0.0-0.1); Basophils % 0.5 %; Eosinophils # 0.4 10^3/uL (0.0-0.8); Eosinophils % 2.4 %; Hematocrit 28.3 % (37.0-47.0); Hemoglobin 8.4 g/dL (11.5-15.3); Lymphocytes # 0.7 10^3/uL (0.8-4.8); Lymphocytes % 4.4 %; Mean Corpuscular HGB Conc 29.7 g/dL (30.0-36.0); Mean Corpuscular Hemoglobin 27.1 pg (28.0-34.0); Mean Corpuscular Volume 91.3 fl (81-99); Monocytes % 6.2 %; Neutrophils # 14.17 10^3/uL (1.8-7.7); Neutrophils % 85.5 %; Nucleated Red Blood Cells % 0 %; Platelet Count 170 10^3/cmm (130-400); Red Cell Distribution Width 17.6 % (12.1-15.1); White Blood Count 16.5 10^3/uL (4.0-10.0)
[2023-02-20 04:35] LABS: INR 2.93 (0.8-1.2)
[2023-02-20 04:39] LABS: Alanine Aminotransferase 12 U/L (0-33); Albumin Level 3.5 g/dL (3.5-5.2); Alkaline Phosphatase 158 U/L (35-105); Anion Gap 13.9 (5-19); Aspartate Amino Transferase 17 U/L (0-32); Blood Urea Nitrogen 35 mg/dL (8-23); Calcium 8.7 mg/dL (8.5-10.5); Carbon Dioxide 31 mmol/L (22-29); Chloride 97 mmol/L (98-107); Globulin 2.9 g/dL (1.3-4.6); Glucose 129 mg/dL (65-115); Osmolality Calculated 298 mOsm/kg (285-295); Sodium 139 mmol/L (136-145); Total Bilirubin 0.9 mg/dL (0.15-1.2); Total Protein 6.4 g/dL (6.6-8.7)
[2023-02-20 04:42] LABS: Potassium 2.9 mmol/L (3.5-5.1)
[2023-02-20] MEDS: pantoprazole 40 mg SDV IVP ×2 (05:55→17:03)
--- NOTE | 2023-02-20 07:12 | XR_ITS ---
WS: [id number] XR abdomen min 2V [id number] REASON FOR EXAM: small bowel obstruction FINDINGS: Nasogastric tube in place in the fundus of the stomach. No free air or retroperitoneal air identified. The dilated loops of small bowel in the left abdomen are significantly reduced in caliber. There is anterior in the transverse colon which is nondistended. No air is identified in the rectum. No new findings. XR/XR abdomen min 2V [id number] IMPRESSION: Improving small bowel obstructive pattern.
[2023-02-20] MEDS: budesonide 0.5 mg/2 mL Neb INHALATION (07:31)
[2023-02-20] MEDS: lidocaine 5% Patch 1 PATCH TOPICAL (10:28)
--- NOTE | 2023-02-20 11:46 | XR_ITS ---
WS: [id number] XR chest 1V portable [id number] REASON FOR EXAM: Hypoxia, worsened leukocytosis FINDINGS: Nasogastric tube remains in place with the tip overlying the fundus of the stomach. Right subclavian dual lumen catheter remains in place with the tip in the superior vena cava. Right arm PICC line remains in place with the tip in the superior vena cava. Lower lung opacities and pleural effusions are unchanged compared to 02/17/2023. XR/XR chest 1V portable [id number] IMPRESSION: Stable abnormal chest.
[2023-02-20] MEDS: mineral oil 30 mL UDC NG-TUBE (15:01)
[2023-02-20] MEDS: bisacodyl 10 mg Supp PR (15:02)
[2023-02-20] MEDS: midodrine 5 mg TABLET PO ×2 (15:02→20:35)
[2023-02-20] MEDS: polyethylene glycol 3350 Pkt 17 gm NG-TUBE (15:02)
[2023-02-20] MEDS: albumin 12.5 GM/50 ML VIAL IV ×3 (15:03)
--- NOTE | 2023-02-20 15:46 | P.PN_ITS ---
Subjective Subjective: HD today Medications: Reviewed: Yes Vitals/I&O/Wt Last Vital Signs Temp 98.5 F 02/20/23 15:32 Pulse 74 02/20/23 15:32 Resp 26 H 02/20/23 15:32 BP 137/60 02/20/23 15:32 Pulse Ox 95 02/20/23 15:32 O2 Del Method Nasal Cannula 02/20/23 15:32 O2 Flow Rate 4 02/20/23 14:00 FiO2 50 02/20/23 08:00 02/20/23 02/20/23 02/20/23 06:59 14:59 22:59 Intake Total 0 / 1100 750 / 750 Output Total 75 / 665 2500 / 2500 Balance -75 / 435 -1750 / -1750 Weight last 48 hrs Weight 85.8 kg Weight 83.461 kg Weight 88.082 kg Weight 88.7 kg Physical Exam Narrative: awake , alert , no distress HEENT S1S2 RRR per report Crackles per report + LEedema Urinary Catheter Management: Monsalve: Cath Placed During This Visit: yes, but has since been removed by the nurse Reason for Continuing Indwelling Catheter: Decision to DC Catheter Urinary Catheter Date of Insertion: 01/25/23 Urinary Catheter Time of Insertion: 15:00 Date Urinary Catheter Removed: 02/11/23 Time Urinary Catheter Discontinued: 15:30 Data 02/20/23 03:31 02/20/23 03:31 Micro: Microbiology 02/20/23 12:09 Blood Culture - Preliminary Blood SPECIMEN COLLECTED 02/20/23 12:09 Blood Culture - Preliminary Blood SPECIMEN COLLECTED A&P Assessment and plan (1) KATHI (acute kidney injury): Plan 1. Acute on chronic kidney disease: Creatinine baseline in the mid 1 range. Current KATHI likely multifactorial-possible ATN due to acute infection, toxicity, possible cardiorenal. Patient has persistent hyperkalemia and volume overload with no response to diuretics at this point. -S/P temporary hemodialysis catheter placement and s/HD started - no renal recovery yet , hD today , may eed penitentiary HD but unsure pt can tolerate penitentiary HD due to multiple comorbidities -Reassess daily for HD needs. 2. Persistent hyperkalemia , multifactorial from KATHI and digitoxicity, improved 3. CHF: poor response to diuretics , HD as above 4. Acute on chronic respiratory failure: On BiPAP 6. Right extremity cellulitis 7. A-fib with RVR 8. Small bowel obstruction, followed by surgery Patient evaluated using audiovisual cart. Time spent 45 minutes Attestations Medical Necessity Statement*: per medicine Coding Level of Care Code Acute Code for Chg Fwd Diagnoses KATHI (acute kidney injury) N17.9
[2023-02-20] MEDS: nystatin cream 30 gm 1 APPLIC TOPICAL (17:04)
--- NOTE | 2023-02-20 18:16 | PM.PN ---
Subjective Subjective: No complaints Vitals/I&O/Wt Last Vital Signs Temp 98.5 F 02/20/23 15:32 Pulse 74 02/20/23 15:32 Resp 26 H 02/20/23 15:32 BP 137/60 02/20/23 15:32 Pulse Ox 95 02/20/23 15:32 O2 Del Method Nasal Cannula 02/20/23 15:32 O2 Flow Rate 4 02/20/23 14:00 FiO2 50 02/20/23 08:00 02/20/23 02/20/23 02/20/23 06:59 14:59 22:59 Intake Total 0 / 1100 750 / 750 Output Total 75 / 665 2500 / 2500 Balance -75 / 435 -1750 / -1750 Weight last 48 hrs Weight 189 lb 2.506 oz Weight 184 lb Weight 194 lb 3 oz Physical Exam Narrative: Patient is a well developed well nourished and in NAD and is afebrile with vitals stable and is answering questions appropriately with a normal affect and is alert and oriented x3 HEENT: normocephalic with normal external ears and nonicteric, oral mucosa moist and dentition normal for age, trachea midline with no large masses visualized Heart: RRR, no gallops murmurs or rubs, normal PMI with no thrills Lungs: normal excursions, no loud audible wheezing, no subcutaneous emphysema Abdomen: nondistended, no gross hepatosplenomegaly, no masses, no rigidity or rebound, no loud borborygmi Neuro: nonfocal, DELGADILLO, grossly normal sensation Musculoskeletal: good muscle tone, no fasciculations, normal gait Skin: pink warm and dry with no rashes or ecchymosis Vascular: good radial pulses, no ulceration, less than 2 second capillary refill in hand : deferred Urinary Catheter Management: Monsalve: Cath Placed During This Visit: yes, but has since been removed by the nurse Reason for Continuing Indwelling Catheter: Decision to DC Catheter Urinary Catheter Date of Insertion: 01/25/23 Urinary Catheter Time of Insertion: 15:00 Date Urinary Catheter Removed: 02/11/23 Time Urinary Catheter Discontinued: 15:30 Data 02/20/23 03:31 02/20/23 03:31 Micro: Microbiology 02/20/23 12:09 Blood Culture - Preliminary Blood SPECIMEN COLLECTED 02/20/23 12:09 Blood Culture - Preliminary Blood SPECIMEN COLLECTED A&P Assessment and plan (1) SBO (small bowel obstruction): Patient AXR shows improvement of SBO. Clamp NG longer during cycles off. Continue to clean out from above and below. Attestations Medical Necessity Statement*: Needs hospitalization per hospitalist Coding Level of Care Code 67590 Diagnoses SBO (small bowel obstruction) K56.609
--- NOTE | 2023-02-20 18:20 | P.PN_ITS ---
Subjective Subjective: She denies any additional changes today. No new pain. Yesterday afternoon did have an episode of anxiety. Medications: Reviewed: Yes Vitals/I&O/Wt Last Vital Signs Temp 98.5 F 02/20/23 15:32 Pulse 74 02/20/23 15:32 Resp 26 H 02/20/23 15:32 BP 137/60 02/20/23 15:32 Pulse Ox 95 02/20/23 15:32 O2 Del Method Nasal Cannula 02/20/23 15:32 O2 Flow Rate 4 02/20/23 14:00 FiO2 50 02/20/23 08:00 02/20/23 02/20/23 02/20/23 06:59 14:59 22:59 Intake Total 0 / 1100 750 / 750 Output Total 75 / 665 2500 / 2500 200 / 2700 Balance -75 / 435 -1750 / -1750 -200 / -1950 Weight last 48 hrs Weight 85.8 kg Weight 83.461 kg Weight 88.082 kg Physical Exam Narrative: Sitting up at edge of bed, ready to stand up with PT. Const: COMMON NORMALS: patient oriented x3 and alert GENERAL APPEARANCE: cooperative ORIENTATION/CONSCIOUSNESS: Yes awake HENMT: COMMON NORMALS: oropharynx normal Neck/C-Spine: COMMON NORMALS: no JVD Resp: COMMON NORMALS: normal respiratory effort and clear to auscultation bilaterally AUSCULTATION: clear to auscultation bilaterally and diminished lung sounds Cardio: COMMON NORMALS: no JVD, regular rhythm, S1 normal heart sound present, S2 normal heart sound present and No murmurs present (Cardio) RHYTHM: regular rhythm HEART SOUNDS: S1 normal heart sound present and S2 normal heart sound present GI: COMMON NORMALS: Normal to inspection, nondistended, normoactive bowel sounds present, Soft to palpation and non-tender PALPATION: Yes Soft to palpation OTHER: Sluggish BS. Extremity: COMMON NORMALS: no joint enlargement and no pedal edema NARRATIVE EXTREMITY EXAM: LE no erythema but chronic venous stasis, purplish discoloration bilateral lower extremities on the shins, perfused appearing. Ankles. Dry scaly skin. Healing ulceration on anteromedial right lower leg, small ulceration 1 x 2 cm, shallow without tunneling or undermining, small meta slough at the base. Neuro: COMMON NORMALS: patient oriented x3 and moves all extremities SENSORIUM/ORIENTATION: Yes alert Skin: COMMON NORMALS: no rashes or lesions noted GENERAL SKIN EXAM: no rashes or lesions noted OTHER: Wrinkling of bilateral lower extremity skin over shins. Violaceous discoloration. No erythema. Dressings in place. Buttocks with somewhat violaceous discoloration, but resolution of severe erythema she had before. Shallow maceration/shear injury on center of each buttock. No tunneling or undermining. Urinary Catheter Management: Monsalve: Cath Placed During This Visit: yes, but has since been removed by the nurse Reason for Continuing Indwelling Catheter: Decision to DC Catheter Urinary Catheter Date of Insertion: 01/25/23 Urinary Catheter Time of Insertion: 15:00 Date Urinary Catheter Removed: 02/11/23 Time Urinary Catheter Discontinued: 15:30 Data 02/20/23 03:31 02/20/23 03:31 Micro: Microbiology 02/20/23 12:09 Blood Culture - Preliminary Blood SPECIMEN COLLECTED 02/20/23 12:09 Blood Culture - Preliminary Blood SPECIMEN COLLECTED A&P Assessment and plan (1) SBO (small bowel obstruction): Additional small BM. Still sluggish BS. Surgery assessment appreciated. Maintain NGT until return of bowel function. Continue bowel regimen. Maintain NGT as per surgery. Stopped amiodarone in case of contribution to constipation. At risk of tachyca rdia with A-fib is currently unable to take oral medications reliably. Discussed low-dose metoprolol IV to help with rate control if blood pressure allows. She has had additional bowel regimen today. KUB results noted, persistent air distended loops of small bowel. Continue TPN. Goal rate 42 mL/h. At risk of fluid overload with underlying CHF, anuria, monitor with TPN infusion. Out of bed to chair. IV Protonix, Zofran as needed. Discussed with case management, so far discharge deferred. (2) Leukocytosis: No worsening abdominal symptoms, gradually improving. He denies any worsening in respiratory status, although still requiring nasal cannula supplemental ox ygen. Does not appear significantly volume overloaded. Underwent additional HD today. Requested for chest x-ray for additional assessment consideration of pneumonia. Cellulitis overall has resolved, significant trauma, with some residual violaceous discoloration but no significant erythema she had before. Small maceration/shear injury on center of each buttock without any drainage, no significant surrounding edema or erythema, no tunneling or undermining. Not entirely clear reason for worsening leukocytosis WBC count noted up to 16.5, neutrophils 14.17. Requested blood cultures from HD catheter and PICC line. Chest x-ray appears grossly not significantly changed. Will check procalcitoni n. Monitor for symptom change. So far no diarrhea. Reassess blood counts. For now hold off restarting antibiotic given she is multiple courses of treatment, at risk of C. difficile. (3) KATHI (acute kidney injury): Monitor urine output. Noted 150 mL urine output. Discussed with nephrology. Repeat chemistry requested. Continue to monitor intake and output. Digoxin level 1.3 on 02/18 will not get any further. Held Bumex 1 mg IV daily for now. (4) Respiratory failure with hypoxia: Repeat chest x-ray largely unchanged. Continued bibasilar lung opacities and pleural effusions. Encourage incentive spirometry. We will reassess condition, blood counts. Check procalcitonin. Additional dialysis today. Bumex has been on hold for now. Bumex was held due to anuria. Continue to reassess, consider resuming. Continue oxygen support, NIPPV support. Oxygen supplementation keeping saturation over 88%. Strict input output charting, daily weights. Anuric. Bumex held. (5) Atrial fibrillation with RVR: Stopped amiodarone for now. Continue IV metoprolol as per parameters. Monitor heart rate. Off warfarin. Follow-up INR. Avoid digoxin. Heart rate now remains controlled. (6) Supratherapeutic INR: INR noted, 2.93. Off amiodarone. Repeat INR requested. Follow-up CBC requested. Continue off warfarin. Consideration of starting alternative anticoagulant once INR declines. Follow INR. Patient has a labile INR. Patient is supratherapeutic INR on presentation which had improved and then supratherapeutic again. Most likely in combination of medical interactions. On discharge she will start on Eliquis 5 mg twice daily. Hold off on any further Coumadin. (7) Anemia: Hemoglobin hovering around 8 marked. Today noted 8.2. Target hemoglobin more than 8. Post 1 unit of blood transfusion. Continue to monitor hemoglobin daily. Hemoglobin stable for now. (8) Hyperkalemia: Resolved postdialysis. (9) Cellulitis: Note significant improvement in symptoms. Completed antibiotics, antifungal. Stable. Continue wound care with zinc oxide. Frequent repositioning. Out of bed to chair. MRSA negative. Stop vancomycin. Finished Cefepime on 02/12. Last dose of fluconazole on 02/15. Lower extremities do not appear to have active cellulitis beyond chronic changes, ulceration on anterior medial right lower leg. 1cm spot of eschar on lateral second left toe, she states has had that spot for a while. Keep monitoring. Does not appear like necrosis. (10) CHF (congestive heart failure), NYHA class III: Dialysis. Monitor urine output. Currently anuric, Bumex held for now. Fluid restriction up to 1500 cc. Monitor daily. Qualifiers: Congestive heart failure chronicity: acute on chronic Congestive heart failure type: diastolic Qualified Code(s): I50.33 - Acute on chronic diastolic (congestive) heart failure (11) Hyponatremia: Resolved (12) Wound, open, leg: (13) PAD (peripheral artery disease): (14) Hypertension: (15) Warfarin anticoagulation: (16) Carotid disease, bilateral: (17) COPD (chronic obstructive pulmonary disease): (18) Peripheral neuropathy: (19) Hemodialysis status: (20) Elevated digoxin level: Plan Hematuria: Monsalve replaced after small bowel obstruction. Continue to monitor for hematuria. DNR/DNI. N.p.o. Start on TPN. Therapeutic INR with suffice for DVT prophylaxis. Protonix for PUD prophylaxis. Discharge plan: Discharge on hold given multiple active ongoing issues Goals of care discussion: Discussed with her , he states she seems to be aware that her condition overall is not good and she seems to feel that her prognosis overall is not good. Certainly discussed with him that given protracted hospitalization and scant improvement certainly difficult to predict overall outlook, but may portend a worse prognosis. At risk of additional complications and worsening in her condition. Certainly cannot exclude a poor outcome. They do understand, although have been trying to still keep her well supported and encouraged so that she does not give up either as they that would detract from attempts at recovery at least while her goals of care are still on more aggressive side. He does reiterate that she would not have wanted cardiopulmonary substation or a life support in case of progressive deterioration to that point. Attestations Medical Necessity Statement*: Continue admission for assessment management of SBO, worsening leukocytosis, renal failure, and lady with CHF. Diagnoses SBO (small bowel obstruction) K56.609 Leukocytosis D72.829 KATHI (acute kidney injury) N17.9 Respiratory failure with hypoxia J96.91 Atrial fibrillation with RVR I48.91 Supratherapeutic INR R79.1 Anemia D64.9 Hyperkalemia E87.5 Cellulitis L03.90 CHF (congestive heart failure), NYHA class III I50.33 Congestive heart failure chronicity: acute on chronic Congestive heart failure type: diastolic Hyponatremia E87.1 Wound, open, leg S81.809A PAD (peripheral artery disease) I73.9 Hypertension I10 Warfarin anticoagulation Z79.01 Carotid disease, bilateral I77.9 COPD (chronic obstructive pulmonary disease) J44.9 Peripheral neuropathy G62.9 Hemodialysis status Z99.2 Elevated digoxin level R78.89
[2023-02-20] MEDS: AA-Dex 5%-20% w/Lytes 1,000 ML 42 ML IV (19:18)
[2023-02-20] MEDS: ropinirole 0.25 mg Tablet 0.5 MG PO (20:35)
[2023-02-20] MEDS: simethicone 80 mg Chew PO ×2 (20:35→23:58)
[2023-02-21] VITALS (31 sets, daily range): BP systolic 104–139; BP diastolic 47–74; PULSE 57–89; RESP 12–29; TEMP 36.8–37.1; O2SAT 74–97
[2023-02-21] MEDS: levalbuterol 0.63 mg/3 mL Neb INHALATION ×4 (02:11→21:48)
[2023-02-21] MEDS: ipratropium 0.5 mg/2.5 mL Neb INHALATION ×4 (02:11→21:48)
[2023-02-21] MEDS: acetaminophen 325 mg Tablet 650 MG PO ×2 (03:49→21:46)
[2023-02-21 04:18] LABS: Basophils # 0.1 10^3/uL (0.0-0.1); Basophils % 0.6 %; Eosinophils # 0.6 10^3/uL (0.0-0.8); Eosinophils % 4.8 %; Hematocrit 25.2 % (37.0-47.0); Hemoglobin 7.5 g/dL (11.5-15.3); Lymphocytes # 0.8 10^3/uL (0.8-4.8); Lymphocytes % 6.1 %; Mean Corpuscular HGB Conc 29.8 g/dL (30.0-36.0); Mean Corpuscular Hemoglobin 26.7 pg (28.0-34.0); Mean Corpuscular Volume 89.7 fl (81-99); Mean Platelet Volume 11.9 fL (7.4-10.4); Monocytes # 1.1 10^3/uL (0.2-0.9); Monocytes % 8.4 %; Neutrophils # 10.67 10^3/uL (1.8-7.7); Neutrophils % 79.4 %; Nucleated Red Blood Cells % 0 %; Platelet Count 155 10^3/cmm (130-400); Red Blood Count 2.81 10^6/uL (4.1-5.3); Red Cell Distribution Width 17.3 % (12.1-15.1); White Blood Count 13.4 10^3/uL (4.0-10.0)
[2023-02-21 04:36] LABS: Alanine Aminotransferase 11 U/L (0-33); Albumin Level 3.7 g/dL (3.5-5.2); Alkaline Phosphatase 154 U/L (35-105); Anion Gap 15.2 (5-19); Aspartate Amino Transferase 15 U/L (0-32); Blood Urea Nitrogen 27 mg/dL (8-23); Calcium 8.5 mg/dL (8.5-10.5); Carbon Dioxide 32 mmol/L (22-29); Chloride 96 mmol/L (98-107); Globulin 2.7 g/dL (1.3-4.6); Glucose 125 mg/dL (65-115); Osmolality Calculated 297 mOsm/kg (285-295); Potassium 3.2 mmol/L (3.5-5.1); Sodium 140 mmol/L (136-145); Total Bilirubin 1.1 mg/dL (0.15-1.2); Total Protein 6.4 g/dL (6.6-8.7)
[2023-02-21 04:44] LABS: Procalcitonin 0.55 ng/mL (0-0.5)
[2023-02-21] MEDS: pantoprazole 40 mg SDV IVP ×2 (05:01→17:34)
[2023-02-21] MEDS: ondansetron 2 mg/ML SDV 2 mL 4 MG IVP (05:01)
[2023-02-21] MEDS: budesonide 0.5 mg/2 mL Neb INHALATION ×2 (07:39→21:48)
[2023-02-21] MEDS: midodrine 5 mg TABLET PO ×3 (08:42→21:46)
[2023-02-21] MEDS: simethicone 80 mg Chew PO ×4 (08:42→21:46)
[2023-02-21] MEDS: bisacodyl 10 mg Supp PR (08:42)
--- NOTE | 2023-02-21 09:48 | PM.PN ---
Subjective Subjective: ON NC - 5L UOP LOW Medications: Reviewed: Yes Vitals/I&O/Wt Last Vital Signs Temp 98.5 F 02/21/23 08:00 Pulse 69 02/21/23 08:00 Resp 22 H 02/21/23 08:00 BP 104/48 02/21/23 08:00 Pulse Ox 97 02/21/23 08:00 O2 Del Method Nasal Cannula 02/21/23 08:00 O2 Flow Rate 4 02/20/23 14:00 FiO2 45 02/21/23 07:43 02/20/23 02/21/23 02/21/23 22:59 06:59 14:59 Intake Total 1120 / 1870 0 / 1870 Output Total 200 / 2700 100 / 2800 Balance 920 / -830 -100 / -930 Weight last 48 hrs Weight 85.8 kg Weight 83.461 kg Physical Exam Narrative: AWAKE , NO DISTRESS ON NC PERRLA S2 S2 RRR PER REPORT CRACKLES AT BASES PER REPORT NO EDEMA Urinary Catheter Management: Monsalve: Cath Placed During This Visit: yes, but has since been removed by the nurse Reason for Continuing Indwelling Catheter: Decision to DC Catheter Urinary Catheter Date of Insertion: 01/25/23 Urinary Catheter Time of Insertion: 15:00 Date Urinary Catheter Removed: 02/11/23 Time Urinary Catheter Discontinued: 15:30 Data 02/21/23 03:31 02/21/23 03:31 Micro: Microbiology 02/20/23 12:09 Blood Culture - Preliminary Blood SPECIMEN COLLECTED 02/20/23 12:09 Blood Culture - Preliminary Blood SPECIMEN COLLECTED A&P Assessment and plan (1) KATHI (acute kidney injury): Plan 1. Acute on chronic kidney disease: Creatinine baseline in the mid 1 range. Current KATHI likely multifactorial-possible ATN due to acute infection, toxicity, possible cardiorenal. Patient has persistent hyperkalemia and volume overload with no response to diuretics at this point. -S/P temporary hemodialysis catheter placement and s/HD started - no renal recovery yet , , may Need director long term care HD but unsure pt can tolerate prison HD due to multiple comorbidities -Reassess daily for HD needs. 2. Persistent hyperkalemia , multifactorial from KATHI and digitoxicity, improved 3. CHF: poor response to diuretics , HD as above 4. Acute on chronic respiratory failure: On BiPAP 6. Right extremity cellulitis 7. A-fib with RVR 8. Small bowel obstruction, followed by surgery Patient evaluated using audiovisual cart. Time spent 45 minutes Attestations Medical Necessity Statement*: PER MEDICINE Coding Level of Care Code Acute Code for Chg Fwd Diagnoses KATHI (acute kidney injury) N17.9
[2023-02-21] MEDS: lidocaine 5% Patch 1 PATCH TOPICAL (09:52)
[2023-02-21] MEDS: polyethylene glycol 3350 Pkt 17 gm NG-TUBE (09:53)
[2023-02-21] MEDS: mineral oil 30 mL UDC NG-TUBE (09:53)
--- NOTE | 2023-02-21 11:15 | P.PN_ITS ---
Subjective Subjective: No complaints Vitals/I&O/Wt Last Vital Signs Temp 98.5 F 02/21/23 08:00 Pulse 69 02/21/23 08:00 Resp 22 H 02/21/23 08:00 BP 104/48 02/21/23 08:00 Pulse Ox 97 02/21/23 08:00 O2 Del Method Nasal Cannula 02/21/23 08:00 O2 Flow Rate 4 02/20/23 14:00 FiO2 45 02/21/23 07:43 02/20/23 02/21/23 02/21/23 22:59 06:59 14:59 Intake Total 1120 / 1870 0 / 1870 Output Total 200 / 2700 100 / 2800 Balance 920 / -830 -100 / -930 Weight last 48 hrs Weight 189 lb 2.506 oz Weight 184 lb Physical Exam Narrative: Patient is a well developed well nourished and in NAD and is afebrile with vitals stable and is answering questions appropriately with a normal affect and is alert and oriented x3 HEENT: normocephalic with normal external ears and nonicteric, oral mucosa moist and dentition normal for age, trachea midline with no large masses visua lized Heart: RRR, no gallops murmurs or rubs, normal PMI with no thrills Lungs: normal excursions, no loud audible wheezing, no subcutaneous emphysema Abdomen: nondistended, no gross hepatosplenomegaly, no masses, no rigidity or rebound, no loud borborygmi Neuro: nonfocal, DELGADILLO, grossly normal sensation Musculoskeletal: good muscle tone, no fasciculations, normal gait Skin: pink warm and dry with no rashes or ecchymosis Vascular: good radial pulses, no ulceration, less than 2 second capillary refill in hand : deferred Urinary Catheter Management: Monsalve: Cath Placed During This Visit: yes, but has since been removed by the nurse Reason for Continuing Indwelling Catheter: Decision to DC Catheter Urinary Catheter Date of Insertion: 01/25/23 Urinary Catheter Time of Insertion: 15:00 Date Urinary Catheter Removed: 02/11/23 Time Urinary Catheter Discontinued: 15:30 Data 02/21/23 03:31 02/21/23 03:31 Micro: Microbiology 02/20/23 12:09 Blood Culture - Preliminary Blood SPECIMEN COLLECTED 02/20/23 12:09 Blood Culture - Preliminary Blood SPECIMEN COLLECTED A&P Assessment and plan (1) Partial small bowel obstruction: Patient had BM yesterday and less out NG tube 200cc in 24 hours. Will cycle NG off LIS for 6 hours at a time now. Will remove dialysis catheter when requested once she longer needs it. Will get follow up CXR after removal to make sure radio opaque area at end of tube is comletely gone from patient. Attestations Medical Necessity Statement*: see hospitalist note Coding Level of Care Code 03116 Diagnoses Partial small bowel obstruction K56.600
--- NOTE | 2023-02-21 11:37 | PC.SOCIAL ---
IMM Updated Updated pt on IMM. No questions voiced. Provided pt a copy. Initialed, dated, & timed copy in chart.
--- NOTE | 2023-02-21 12:20 | CT_ITS ---
WS: [id number] CT CHEST TECHNIQUE: Noncontrast CT of the chest with coronal and sagittal reformatted images. CLINICAL INFORMATION: hypoxia, poss pna? COMPARISON: CT chest January 28, 2023 DLP: 562.[address] scans at [facility] use at least one of these dose optimization techniques: automated e xposure control; mA and/or kV adjustment per patient size (includes targeted exams where dose is matc hed to clinical indication); or iterative reconstruction. FINDINGS: Moderate RIGHT and small LEFT pleural effusions with compressive atelectasis in the lung bases. Pleur al effusions have increased slightly compared to previous. Diffuse interstitial edema throughout both lungs. Hazy groundglass infiltrates in both upper lobes. Subsegmental atelectasis in RIGHT upper lob e anteromedially. Enteric tube with tip in the stomach. Aortic calcification. Coronary calcification. Prominent anterior mediastinal and paratracheal lymph n odes are unchanged in appearance. Calcified subcarinal lymph nodes. Prominent 9 mm retrocrural lymph node unchanged. Splenic artery calcification. Fatty atrophy of the pancreas. Dense vascular calcification upper abdom inal aorta. Adrenal glands are normal. Partially visualized LEFT renal cysts the largest measuring 2. 9 CM. Prior compression fractures T10, T11 with vertebroplasty changes stable compared to previous.Mild com pression superior endplate T4 with sclerosis is unchanged. CT/CT chest wo con [id number] IMPRESSION: 1. Moderate RIGHT and small LEFT pleural effusions with compressive atelectasi s in the lung bases slightly progressed compared to previous. 2. Interstitial edema in both lungs with hazy groundglass infiltrates in the u pper lobes likely due to pulmonary edema. 3. Prominent mediastinal and paratracheal lymph nodes are unchanged nonspecifi c but likely reactive. 4. Enteric tube with tip in the stomach. 5. Stable compression fractures with kyphoplasty changes at T10 and T11. Mild chronic compression superior endplate T4 unchanged.
--- NOTE | 2023-02-21 13:13 | P.PN_ITS ---
Subjective Subjective: States that she is feeling about the same, not worsening. Some trouble catching a good breath although states it is mostly due to NG tube in her nostril. She otherwise has not had worsened cough but is coughing little bit. Discussed with her consideration of additional assessment by CT. Vitals/I&O/Wt Last Vital Signs Temp 98.3 F 02/21/23 12:00 Pulse 78 02/21/23 12:00 Resp 25 H 02/21/23 12:00 BP 113/56 02/21/23 12:00 Pulse Ox 93 02/21/23 12:00 O2 Del Method Nasal Cannula 02/21/23 12:00 O2 Flow Rate 4 02/20/23 14:00 FiO2 45 02/21/23 07:43 02/20/23 02/21/23 02/21/23 22:59 06:59 14:59 Intake Total 1120 / 1870 0 / 1870 120 / 120 Output Total 200 / 2700 100 / 2800 Balance 920 / -830 -100 / -930 120 / 120 Weight last 48 hrs Weight 85.8 kg Weight 83.461 kg Physical Exam Narrative: Reclined in bed. Const: COMMON NORMALS: patient oriented x3 and alert GENERAL APPEARANCE: cooperative ORIENTATION/CONSCIOUSNESS: Yes awake HENMT: COMMON NORMALS: oropharynx normal OTHER: NGT in place. Neck/C-Spine: COMMON NORMALS: no JVD Resp: COMMON NORMALS: normal respiratory effort and clear to auscultation bilaterally AUSCULTATION: clear to auscultation bilaterally and diminished lung sounds OTHER: Nasal cannula. Cardio: COMMON NORMALS: no JVD, regular rhythm, S1 normal heart sound present, S2 normal heart sound present and No murmurs present (Cardio) RHYTHM: regular rhythm HEART SOUNDS: S1 normal heart sound present and S2 normal heart sound present GI: COMMON NORMALS: Normal to inspection, nondistended, normoactive bowel sounds present, Soft to palpation and non-tender PALPATION: Yes Soft to palpation OTHER: Sluggish BS. Extremity: COMMON NORMALS: no joint enlargement and no pedal edema NARRATIVE EXTREMITY EXAM: LE no erythema but chronic venous stasis, purplish discoloration bilateral lower extremities on the shins, perfused appearing. Ankles. Dry scaly skin. Healing ulceration on anteromedial right lower leg, small ulceration 1 x 2 cm, shallow without tunneling or undermining, small meta slough at the base. Neuro: COMMON NORMALS: patient oriented x3 and moves all extremities SENSORIUM/ORIENTATION: Yes alert Skin: COMMON NORMALS: no rashes or lesions noted GENERAL SKIN EXAM: no ra shes or lesions noted OTHER: Wrinkling of bilateral lower extremity skin over shins. Violaceous discoloration. Chronic venous stasis. No erythema. Compression dressings in place LLE. Buttocks with somewhat violaceous discoloration, but resolution of severe erythema she had before. Shallow maceration/shear injury on center of each buttock. No tunneling or undermining. Urinary Catheter Management: Monsalve: Cath Placed During This Visit: yes, but has since been removed by the nurse Reason for Continuing Indwelling Catheter: Decision to DC Catheter Urinary Catheter Date of Insertion: 01/25/23 Urinary Catheter Time of Insertion: 15:00 Date Urinary Catheter Removed: 02/11/23 Time Urinary Catheter Discontinued: 15:30 Data 02/21/23 03:31 02/21/23 03:31 Micro: Microbiology 02/20/23 12:09 Blood Culture - Preliminary Blood NEGATIVE TO DATE 02/20/23 12:09 Blood Culture - Preliminary Blood NEGATIVE TO DATE A&P Assessment and plan (1) SBO (small bowel obstruction): Small BM. Bowel sounds sluggish. Surgery assessment appreciated. Less NGT output. To be cycled off LIS for 6 hours at a time. Maintain NGT until return of bowel function. Continue bowel regimen. Follow-up chemistry requested, at risk of electrolyte abnormality and arrhythmia, monitor on telemetry. Stopped amiodarone in case of contribution to constipation. At risk of tachycardia with A-fib is currently unable to take oral medications reliably. Discussed low-dose metoprolol IV to help with rate control if blood pressure allows. She has had additional bowel regimen today. KUB results noted, persistent air distended loops of small bowel. Continue TPN. Goal rate 42 mL/h. At risk of fluid overload with underlying CHF, anuria, monitor with TPN infusion. Out of bed to chair. IV Protonix, Zofran as needed. Discussed with case management, so far discharge deferred. (2) Leukocytosis: Leukocytosis better today, 13.5. Procalcitonin also abnormal. Currently off antibiotic. Still some persistent hypoxia, although overall does not appear significantly fluid overloaded. Chest x-ray with bibasilar opacification. Possible small pleural effusions. Atelectasis but cannot entirely exclude pneumonia. Discussed with her. Adding incentive parameter. Discussed with her additional assessment by noncontrast CT chest. Requesting. No worsening abdominal symptoms, gradually improving. He denies any worsening in respiratory status, although still requiring nasal cannula supplemental oxygen. Does not appear significantly volume overloaded. Cellulitis overall has resolved, significant trauma, with some residual violaceous discoloration but no significant erythema she had before. Small maceration/shear injury on center of each buttock without any drainage, no significant surrounding edema or erythema, no tunneling or undermining. Not entirely clear reason for worsening leukocytosis WBC count noted up to 13.5. Neutrophils elevated. Follow-up obtained blood cultures from HD catheter and PICC line. Chest x-ray appears grossly not significantly changed. Will check procalcitonin. Monitor for symptom change. So far no diarrhea. Reassess blood counts. For now hold off restarting antibiotic given she is multiple courses of treatment, at risk of C. difficile. (3) KATHI (acute kidney injury): Oliguria. No significant improvement in renal function. Discussed with nephr ology, anticipate additional dialysis over the weekend. May end up requiring continued dialysis, and tunneled catheter may become needed, however, blood cultures have been collected with worsening leukocytosis, will need to be followed up. Tunneled catheter possibly sometime early next week. Surgery documentation appreciated, upon removal of temporary dialysis catheter will need repeat x-ray to reassess density. Repeat chemistry requested. Continue to monitor intake and output. Digoxin level 1.3 on 02/18 will not get any further. Held Bumex 1 mg IV daily for now. (4) Respiratory failure with hypoxia: CT chest as above. Hold off antibiotic for now. Repeat chest x-ray largely unchanged. Continued bibasilar lung opacities and pleural effusions. Discussed with her incentive spirometry. We will reassess condition, blood counts. Noted abnormal procalcitonin. Discussed with nephrology, Bumex has been on hold for now. Anticipate additional dialysis over the weekend. Bumex was held due to anuria. Continue to reassess, consider resuming. Continue oxygen support, NIPPV support. Oxygen supplementation keeping saturation over 88%. Strict input output charting, daily weights. Anuric. Bumex held. (5) Atrial fibrillation with RVR: Stopped amiodarone for now. Continue IV metoprolol as per parameters. Monitor heart rate. Small dose potassium replacement. Stop Lokelma. Off warfarin. Additional INR requested. Avoid digoxin. Heart rate now remains controlled. (6) Supratherapeutic INR: INR not available today. We will request for the morning. Off amiodarone. Repeat INR requested. Follow-up CBC requested. Continue off warfarin. Consideration of starting alternative anticoagulant once INR declines. Follow INR. Patient has a labile INR. Patient is supratherapeutic INR on presentation which had improved and then supratherapeutic again. Most likely in combination of medical interactions. On discharge she will start on Eliquis 5 mg twice daily. Hold off on any further Coumadin. (7) Anemia: Hemoglobin with some declined after 7.5. Platelets 155. Reassess CBC. Hemoccult currently not possible. Target hemoglobin more than 8. Post 1 unit of blood transfusion. Continue to monitor hemoglobin daily. (8) Hyperkalemia: Resolved postdialysis. (9) Cellulitis: Note significant improvement in symptoms. Completed antibiotics, antifungal. Stable. Continue wound care with zinc oxide. Frequent repositioning. Out of bed to chair. MRSA negative. Stop vancomycin. Finished Cefepime on 02/12. Last dose of fluconazole on 02/15. Lower extremities do not appear to have active cellulitis beyond chronic changes, ulceration on anterior medial right lower leg. 1cm spot of eschar on lateral second left toe, she states has had that spot for a while. Keep monitoring. Does not appear like necrosis. (10) CHF (congestive heart failure), NYHA class III: Dialysis. Monitor urine output. Currently anuric, Bumex held for now. Fluid restriction up to 1500 cc. Monitor daily. Qualifiers: Congestive heart failure chronicity: acute on chronic Congestive heart failure type: diastolic Qualified Code(s): I50.33 - Acute on chronic diastolic (congestive) heart failure (11) Hyponatremia: Resolved (12) Wound, open, leg: (13) PAD (peripheral artery disease): (14) Hypertension: (15) Warfarin anticoagulation: (16) Carotid disease, bilateral: (17) COPD (chronic obstructive pulmonary disease): (18) Peripheral neuropathy: (19) Hemodialysis status: (20) Elevated digoxin level: Plan Hematuria: Monsalve replaced after small bowel obstruction. Continue to monitor for hematuria. DNR/DNI. N.p.o. Start on TPN. Therapeutic INR with suffice for DVT prophylaxis. Protonix for PUD prophylaxis. Discharge plan: Not ready for discharge, discussed with case management. Goals of care discussion: Discussed with her , he states she seems to be aware that her condition overall is not good and she seems to feel that her prognosis overall is not good. Certainly discussed with him that given protracted hospitalization and scant improvement certainly difficult to predict overall outlook, but may portend a worse prognosis. At risk of additional complications and worsening in her condition. Certainly cannot exclude a poor outcome. They do understand, although have been trying to still keep her well supported and encouraged so that she does not give up either as they that would detract from attempts at recovery at least while her goals of care are still on more aggressive side. He does reiterate that she would not have wanted c ardiopulmonary substation or a life support in case of progressive deterioration to that point. Attestations Medical Necessity Statement*: Continue admission for assessment management of SBO, worsened leukocytosis, persistent hypoxia, renal failure, in a lady with CHF. Diagnoses SBO (small bowel obstruction) K56.609 Leukocytosis D72.829 KATHI (acute kidney injury) N17.9 Respiratory failure with hypoxia J96.91 Atrial fibrillation with RVR I48.91 Supratherapeutic INR R79.1 Anemia D64.9 Hyperkalemia E87.5 Cellulitis L03.90 CHF (congestive heart failure), NYHA class III I50.33 Congestive heart failure chronicity: acute on chronic Congestive heart failure type: diastolic Hyponatremia E87.1 Wound, open, leg S81.809A PAD (peripheral artery disease) I73.9 Hypertension I10 Warfarin anticoagulation Z79.01 Carotid disease, bilateral I77.9 COPD (chronic obstructive pulmonary disease) J44.9 Peripheral neuropathy G62.9 Hemodialysis status Z99.2 Elevated digoxin level R78.89
[2023-02-21] MEDS: AA-Dex 5%-20% w/Lytes 1,000 ML 42 ML IV (17:34)
[2023-02-21] MEDS: ropinirole 0.25 mg Tablet 0.5 MG PO (21:46)
[2023-02-22] VITALS (38 sets, daily range): BP systolic 106–118; BP diastolic 46–64; PULSE 47–88; RESP 14–34; TEMP 36.5–37.4; O2SAT 80–99
[2023-02-22] MEDS: levalbuterol 0.63 mg/3 mL Neb INHALATION ×4 (02:51→20:33)
[2023-02-22] MEDS: ipratropium 0.5 mg/2.5 mL Neb INHALATION ×4 (02:51→20:33)
[2023-02-22 03:56] LABS: Basophils # 0.1 10^3/uL (0.0-0.1); Basophils % 0.8 %; Eosinophils # 0.9 10^3/uL (0.0-0.8); Eosinophils % 6.9 %; Hematocrit 26.2 % (37.0-47.0); Hemoglobin 7.8 g/dL (11.5-15.3); Lymphocytes # 0.8 10^3/uL (0.8-4.8); Lymphocytes % 6.1 %; Mean Corpuscular HGB Conc 29.8 g/dL (30.0-36.0); Mean Corpuscular Hemoglobin 27.2 pg (28.0-34.0); Mean Corpuscular Volume 91.3 fl (81-99); Monocytes % 7.9 %; Neutrophils # 10.07 10^3/uL (1.8-7.7); Neutrophils % 77.5 %; Nucleated Red Blood Cells % 0 %; Platelet Count 173 10^3/cmm (130-400); Red Blood Count 2.87 10^6/uL (4.1-5.3); Red Cell Distribution Width 17.6 % (12.1-15.1)
[2023-02-22 04:21] LABS: INR 2.83 (0.8-1.2)
[2023-02-22 04:30] LABS: Alanine Aminotransferase 12 U/L (0-33); Albumin Level 3.5 g/dL (3.5-5.2); Alkaline Phosphatase 170 U/L (35-105); Anion Gap 16.3 (5-19); Aspartate Amino Transferase 19 U/L (0-32); Blood Urea Nitrogen 47 mg/dL (8-23); Calcium 8.8 mg/dL (8.5-10.5); Carbon Dioxide 30 mmol/L (22-29); Chloride 94 mmol/L (98-107); Globulin 2.8 g/dL (1.3-4.6); Glucose 119 mg/dL (65-115); Osmolality Calculated 297 mOsm/kg (285-295); Potassium 3.3 mmol/L (3.5-5.1); Sodium 137 mmol/L (136-145); Total Bilirubin 0.8 mg/dL (0.15-1.2); Total Protein 6.3 g/dL (6.6-8.7)
[2023-02-22] MEDS: pantoprazole 40 mg SDV IVP ×2 (05:09→17:11)
[2023-02-22] MEDS: zinc oxide oint 30 gm 1 APPLIC TOPICAL ×2 (05:26→10:11)
[2023-02-22] MEDS: ondansetron 2 mg/ML SDV 2 mL 4 MG IVP ×2 (06:21→14:18)
[2023-02-22] MEDS: budesonide 0.5 mg/2 mL Neb INHALATION ×2 (09:52→20:33)
[2023-02-22] MEDS: lidocaine 5% Patch 1 PATCH TOPICAL (10:03)
[2023-02-22] MEDS: simethicone 80 mg Chew PO ×2 (10:04→16:16)
[2023-02-22] MEDS: midodrine 5 mg TABLET PO ×3 (10:04→21:36)
[2023-02-22] MEDS: bisacodyl 10 mg Supp PR (10:05)
[2023-02-22] MEDS: polyethylene glycol 3350 Pkt 17 gm NG-TUBE (10:12)
--- NOTE | 2023-02-22 10:52 | PM.PN ---
Subjective Subjective: feels better UOP still low Medications: Reviewed: Yes Vitals/I&O/Wt Last Vital Signs Temp 97.7 F 02/22/23 03:33 Pulse 79 02/22/23 10:04 Resp 24 H 02/22/23 09:51 BP 113/46 02/22/23 03:33 Pulse Ox 94 02/22/23 09:51 O2 Del Method Nasal Cannula 02/22/23 09:51 O2 Flow Rate 4 02/22/23 09:51 FiO2 45 02/22/23 02:51 02/21/23 02/22/23 02/22/23 22:59 06:59 14:59 Intake Total 1265.2 / 1485.2 0 / 1485.2 Output Total 150 / 150 200 / 350 Balance 1115.2 / 1335.2 -200 / 1135.2 Weight last 48 hrs Weight 85.094 kg Weight 83.461 kg Weight 85.8 kg Physical Exam Narrative: AWAKE , NO DISTRESS ON NC PERRLA S2 S2 RRR PER REPORT CRACKLES AT BASES PER REPORT NO EDEMA Urinary Catheter Management: Monsalve: Cath Placed During This Visit: yes, but has since been removed by the nurse Reason for Continuing Indwelling Catheter: Decision to DC Catheter Urinary Catheter Date of Insertion: 01/25/23 Urinary Catheter Time of Insertion: 15:00 Date Urinary Catheter Removed: 02/11/23 Time Urinary Catheter Discontinued: 15:30 Data 02/22/23 03:07 02/22/23 03:07 Micro: Microbiology 02/20/23 12:09 Blood Culture - Preliminary Blood NEGATIVE TO DATE 02/20/23 12:09 Blood Culture - Preliminary Blood NEGATIVE TO DATE A&P Assessment and plan (1) KATHI (acute kidney injury): Plan 1. Acute on chronic kidney disease: Creatinine baseline in the mid 1 range. Current KATHI likely multifactorial-possible ATN due to acute infection, toxicity, possible cardiorenal. Patient has persistent hyperkalemia and volume overload with no response to diuretics at this point. -S/P temporary hemodialysis catheter placement and s/HD started - no renal recovery yet , , may Need assisted HD but unsure pt can tolerate maternal fetal physician HD due to multiple comorbidities , will d/w family Tunnelled catheter placement next week if no recovery -Reassess daily for HD needs. 2. Persistent hyperkalemia , multifactorial from KATHI and digitoxicity, improved 3. CHF: poor response to diuretics , HD as above 4. Acute on chronic respiratory failure: On BiPAP 6. Right extremity cellulitis 7. A-fib with RVR 8. Small bowel obstruction, followed by surgery Patient evaluated using audiovisual cart. Time spent 45 minutes Attestations Medical Necessity Statement*: per medicine Coding Level of Care Code Acute Code for Chg Fwd Diagnoses KATHI (acute kidney injury) N17.9
--- NOTE | 2023-02-22 15:07 | PC.NURSE ---
NG tube fell out at 9:00, HCP notified and decided to leave it out.
[2023-02-22] MEDS: nystatin cream 30 gm 1 APPLIC TOPICAL (17:12)
--- NOTE | 2023-02-22 17:26 | PM.PN ---
Subjective Subjective: No complaints. Accidently removed NG last night Vitals/I&O/Wt Last Vital Signs Temp 98.2 F 02/22/23 16:00 Pulse 75 02/22/23 16:00 Resp 16 02/22/23 16:00 BP 113/46 02/22/23 16:00 Pulse Ox 90 02/22/23 16:00 O2 Del Method Nasal Cannula 02/22/23 16:00 O2 Flow Rate 4 02/22/23 16:00 FiO2 45 02/22/23 16:00 02/22/23 02/22/23 02/22/23 06:59 14:59 22:59 Intake Total 0 / 1485.2 100 / 100 500 / 600 Output Total 200 / 350 2300 / 2300 Balance -200 / 1135.2 100 / 100 -1800 / -1700 Weight last 48 hrs Weight 181 lb 10.574 oz Weight 187 lb 9.6 oz Weight 184 lb Physical Exam Narrative: Patient is a well developed well nourished and in NAD and is afebrile with vitals stable and is answering questions appropriately with a normal affect and is alert and oriented x3 HEENT: normocephalic with normal external ears and nonicteric, oral mucosa moist and dentition normal for age, trachea midline with no large masses visualized Heart: RRR, no gallops murmurs or rubs, normal PMI with no thrills Lungs: normal excursions, no loud audible wheezing, no subcutaneous emphysema Abdomen: nondistended, no gross hepatosplenomegaly, no masses, no rigidity or rebound, no loud borborygmi Neuro: nonfocal, [place], grossly normal sensation Musculoskeletal: good muscle tone, no fasciculations, normal gait Skin: pink warm and dry with no rashes or ecchymosis Vascular: good radial pulses, no ulceration, less than 2 second capillary refill in hand : deferred Urinary Catheter Management: Monsalve: Cath Placed During This Visit: yes, but has since been removed by the nurse Reason for Continuing Indwelling Catheter: Decision to DC Catheter Urinary Catheter Date of Insertion: 01/25/23 Urinary Catheter Time of Insertion: 15:00 Date Urinary Catheter Removed: 02/11/23 Time Urinary Catheter Discontinued: 15:30 Data 02/22/23 03:07 02/22/23 03:07 A&P Assessment and plan (1) Partial small bowel obstruction: Keep NPO for a day then start on clears tomorrow. Advance to full liquids and keep on liquid type diet for 5-7 days to try and prevent another SBO. Attestations Medical Necessity Statement*: see hospitalist note Coding Level of Care Code 69035 Diagnoses Partial small bowel obstruction K56.600
[2023-02-22] MEDS: AA-Dex 5%-20% w/Lytes 1,000 ML 42 ML IV (19:22)
--- NOTE | 2023-02-22 21:30 | P.PN_ITS ---
Subjective Subjective: She states overall is doing all right today. Denies any worsening in breathing, in fact perhaps slightly easier after her NG tube became dislodged and came out. Vitals/I&O/Wt Last Vital Signs Temp 98.8 F 02/22/23 19:18 Pulse 78 02/22/23 20:34 Resp 23 H 02/22/23 20:34 BP 118/64 02/22/23 19:18 Pulse Ox 90 02/22/23 20:34 O2 Del Method Nasal Cannula 02/22/23 20:34 O2 Flow Rate 4 02/22/23 20:34 FiO2 45 02/22/23 16:00 02/22/23 02/22/23 02/22/23 06:59 14:59 22:59 Intake Total 0 / 1485.2 100 / 100 1500 / 1600 Output Total 200 / 350 2350 / 2350 Balance -200 / 1135.2 100 / 100 -850 / -750 Weight last 48 hrs Weight 82.4 kg Weight 85.094 kg Weight 83.461 kg Physical Exam Narrative: Sitting up in chair. Const: COMMON NORMALS: patient oriented x3 and alert GENERAL APPEARANCE: cooperative ORIENTATION/CONSCIOUSNESS: Yes awake HENMT: COMMON NORMALS: oropharynx normal OTHER: NGT Removed Neck/C-Spine: COMMON NORMALS: no JVD Resp: COMMON NORMALS: normal respiratory effort and clear to auscultation bilaterally AUSCULTATION: clear to auscultation bilaterally and diminished lung sounds OTHER: Nasal cannula. Cardio: COMMON NORMALS: no JVD, regular rhythm, S1 normal heart sound present, S2 normal heart sound present and No murmurs present (Cardio) RHYTHM: regular rhythm HEART SOUNDS: S1 normal heart sound present and S2 normal heart sound present GI: COMMON NORMALS: Normal to inspection, nondistended, normoactive bowel sounds present, Soft to palpation and non-tender PALPATION: Yes Soft to palpation OTHER: Sluggish BS. Extremity: COMMON NORMALS: no joint enlargement and no pedal edema NARRATIVE EXTREMITY EXAM: LE no erythema but chronic venous stasis, purplish discoloration bilateral lower extremities on the shins, perfused appearing. Ankles. Dry scaly skin. Healing ulceration on anteromedial right lower leg, small ulceration 1 x 2 cm, shallow without tunneling or undermining, small meta slough at the base. Neuro: COMMON NORMALS: patient oriented x3 and moves all extremities SENSORIUM/ORIENTATION: Yes alert Skin: COMMON NORMALS: no rashes or lesions noted GENERAL SKIN EXAM: no rashes or lesions noted OTHER: Wrinkling of bilateral lower extremity skin over shins. Violaceous discoloration. Chronic venous stasis. No erythema. Compression dressings in place LLE. Buttocks with somewhat violaceous discoloration, but resolution of severe erythema she had before. Shallow maceration/shear injury on center of each buttock. No tunneling or undermining. Urinary Catheter Management: Monsalve: Cath Placed During This Visit: yes, but has since been removed by the nurse Reason for Continuing Indwelling Catheter: Decision to DC Catheter Urinary Catheter Date of Insertion: 01/25/23 Urinary Catheter Time of Insertion: 15:00 Date Urinary Catheter Removed: 02/11/23 Time Urinary Catheter Discontinued: 15:30 Data 02/22/23 03:07 02/22/23 03:07 A&P Assessment and plan (1) SBO (small bowel obstruction): When she stood up her NG tube became dislodged and came out. Surgical assessment and documentation noted. Keep NPO. Trial of clear liquids tomorrow. Keep on liquid diet for 5-7 days. Continue bowel regimen. Follow-up chemistry requested. Stopped amiodarone in case of contribution to constipation. At risk of tachycardia with A-fib is currently unable to take oral medications reliably. Discussed low-dose metoprolol IV to help with rate control if blood pressure allows. She has had additional bowel regimen today. KUB results noted, persistent air distended loops of small bowel. Continue TPN. Goal rate 42 mL/h. At risk of fluid overload with underlying CHF, anuria, monitor with TPN infusion. Out of bed to chair. IV Protonix, Zofran as needed. Discussed with case management in rounds. (2) Leukocytosis: Moderate effusion, however, also noted elevated INR, discussed with her. Currently would not be able to undergo thoracentesis. Leukocytosis noted with some improvement down to 13. Discussed risk of bleeding with thoracentesis. Currently she does not have any worsening, noted some low- grade fevers previously up to 100.5 2 days ago, but otherwise afebrile currently. As per discussion with her we agreed currently to monitor her condition, continue incentive spirometry. Reassess recovery. Preliminary blood cultures reviewed, so far negative. Recheck CBC. No worsening abdominal symptoms, gradually improving. He denies any worsening in respiratory status, although still requiring nasal cannula supplemental oxygen. Does not appear significantly volume overloaded. Cellulitis overall has resolved, significant trauma, with some residual violaceous discoloration but no significant erythema she had before. Small maceration/shear injury on center of each buttock without any drainage, no significant surrounding edema or erythema, no tunneling or undermining. Monitor for symptom change. So far no diarrhea. (3) KATHI (acute kidney injury): As per discussion with nephrology, continue hemodialysis pending blood cultures subsequently will need tunneled catheter. Surgery documentation appreciated, upon removal of temporary dialysis catheter will need repeat x-ray to reassess density. Repeat chemistry requested. Continue to monitor intake and output. Digoxin level 1.3 on 02/18 will not get any further. Held Bumex 1 mg IV daily for now. (4) Respiratory failure with hypoxia: CT chest as above. Hold off antibiotic for now. Repeat chest x-ray largely unchanged. Continued bibasilar lung opacities and pleural effusions. Discussed with her incentive spirometry. We will reassess condition, blood counts. Noted abnormal procalcitonin. Discussed with nephrology, Bumex has been on hold for now. Anticipate additional dialysis over the weekend. Bumex was held due to anuria. Continue to reassess, consider resuming. Continue oxygen support, NIPPV support. Oxygen supplementation keeping saturation over 88%. Strict input output charting, daily weights. Anuric. Bumex held. (5) Atrial fibrillation with RVR: Stopped amiodarone for now. Continue IV metoprolol as per parameters. Monitor heart rate. Small dose potassium replacement. Stop Lokelma. Off warfarin. Additional INR requested. Avoid digoxin. Heart rate now remains controlled. (6) Supratherapeutic INR: INR Now down to 2.83. Off amiodarone. Repeat INR requested. Follow-up CBC requested. Continue off warfarin. Consideration of starting alternative anticoagulant once INR declines. Follow INR in a couple of days. Patient has a labile INR. Patient is supratherapeutic INR on presentation which had improved and then supratherapeutic again. Most likely in combination of medical interactions. On discharge she will start on Eliquis 5 mg twice daily. Hold off on any further Coumadin. (7) Anemia: Hemoglobin with some declined after 7.5. Platelets 155. Reassess CBC. Hemoccult currently not possible. Target hemoglobin more than 8. Post 1 unit of blood transfusion. Continue to monitor hemoglobin daily. (8) Hyperkalemia: Resolved postdialysis. (9) Cellulitis: Note significant improvement in symptoms. Completed antibiotics, antifungal. Stable. Continue wound care with zinc oxide. Frequent repositioning. Out of bed to chair. MRSA negative. Stop vancomycin. Finished Cefepime on 02/12. Last dose of fluconazole on 02/15. Lower extremities do not appear to have active cellulitis beyond chronic changes, ulceration on anterior medial right lower leg. 1cm spot of eschar on lateral second left toe, she states has had that spot for a while. Keep monitoring. Does not appear like necrosis. (10) CHF (congestive heart failure), NYHA class III: Dialysis. Monitor urine output. Currently anuric, Bumex held for now. Fluid restriction up to 1500 cc. Monitor daily. Qualifiers: Congestive heart failure chronicity: acute on chronic Congestive heart failure type: diastolic Qualified Code(s): I50.33 - Acute on chronic diastolic (congestive) heart failure (11) Hyponatremia: Resolved (12) Wound, open, leg: (13) PAD (peripheral artery disease): (14) Hypertension: (15) Warfarin anticoagulation: (16) Carotid disease, bilateral: (17) COPD (chronic obstructive pulmonary disease): (18) Peripheral neuropathy: (19) Hemodialysis status: (20) Elevated digoxin level: Plan Hematuria: Monsalve replaced after small bowel obstruction. Continue to monitor f or hematuria. DNR/DNI. N.p.o. Therapeutic INR with suffice for DVT prophylaxis. Protonix for PUD prophylaxis. Discharge plan: Not ready for discharge, discussed with case management. Goals of care discussion: Continue to reassess. Previously Discussed with her , he states she seems to be aware that her condition overall is not good and she seems to feel that her prognosis overall is not good. Certainly discussed with him that given protracted hospitalization and scant improvement certainly difficult to predict overall outlook, but may portend a worse prognosis. At risk of additional complications and worsening in her condition. Certainly cannot exclude a poor outcome. They do understand, although have been trying to still keep her well supported and encouraged so that she does not give up either as they that would detract from attempts at recovery at least while her goals of care are still on more aggressive side. He does reiterate that she would not have wanted cardiopulmonary substation or a life support in case of progressive deterioration to that point. Attestations Medical Necessity Statement*: Continue admission for assessment management of SBO, worsened leukocytosis, persistent hypoxia, renal failure, in a lady with CHF. Diagnoses SBO (small bowel obstruction) K56.609 Leukocytosis D72.829 KATHI (acute kidney injury) N17.9 Respiratory failure with hypoxia J96.91 Atrial fibrillation with RVR I48.91 Supratherapeutic INR R79.1 Anemia D64.9 Hyperkalemia E87.5 Cellulitis L03.90 CHF (congestive heart failure), NYHA class III I50.33 Congestive heart failure chronicity: acute on chronic Congestive heart failure type: diastolic Hyponatremia E87.1 Wound, open, leg S81.809A PAD (peripheral artery disease) I73.9 Hypertension I10 Warfarin anticoagulation Z79.01 Carotid disease, bilateral I77.9 COPD (chronic obstructive pulmonary disease) J44.9 Peripheral neuropathy G62.9 Hemodialysis status Z99.2 Elevated digoxin level R78.89
[2023-02-22] MEDS: ropinirole 0.25 mg Tablet 0.5 MG PO (21:36)
[2023-02-22] MEDS: ALPRAZolam 0.5 mg Tablet 0.125 MG PO (21:36)
[2023-02-22] MEDS: acetaminophen 325 mg Tablet 650 MG PO (21:41)
[2023-02-23] VITALS (18 sets, daily range): BP systolic 107–136; BP diastolic 39–75; PULSE 58–113; RESP 16–28; TEMP 36.4–37; O2SAT 87–100
[2023-02-23] MEDS: ipratropium 0.5 mg/2.5 mL Neb INHALATION ×4 (02:42→19:34)
[2023-02-23] MEDS: levalbuterol 0.63 mg/3 mL Neb INHALATION ×4 (02:43→19:34)
[2023-02-23 03:37] LABS: Basophils # 0.1 10^3/uL (0.0-0.1); Basophils % 1.1 %; Eosinophils # 0.8 10^3/uL (0.0-0.8); Eosinophils % 7.1 %; Hematocrit 27.5 % (37.0-47.0); Hemoglobin 8.1 g/dL (11.5-15.3); Lymphocytes % 8.9 %; Mean Corpuscular HGB Conc 29.5 g/dL (30.0-36.0); Mean Corpuscular Hemoglobin 26.8 pg (28.0-34.0); Mean Corpuscular Volume 91.1 fl (81-99); Monocytes # 1.1 10^3/uL (0.2-0.9); Monocytes % 9.6 %; Neutrophils # 8.09 10^3/uL (1.8-7.7); Neutrophils % 72.3 %; Nucleated Red Blood Cells % 0 %; Platelet Count 197 10^3/cmm (130-400); Red Blood Count 3.02 10^6/uL (4.1-5.3); Red Cell Distribution Width 17.5 % (12.1-15.1); White Blood Count 11.2 10^3/uL (4.0-10.0)
[2023-02-23 03:53] LABS: Alanine Aminotransferase 10 U/L (0-33); Albumin Level 3.5 g/dL (3.5-5.2); Alkaline Phosphatase 189 U/L (35-105); Anion Gap 14.8 (5-19); Aspartate Amino Transferase 16 U/L (0-32); Blood Urea Nitrogen 33 mg/dL (8-23); Calcium 8.7 mg/dL (8.5-10.5); Carbon Dioxide 32 mmol/L (22-29); Chloride 97 mmol/L (98-107); Globulin 2.9 g/dL (1.3-4.6); Glucose 117 mg/dL (65-115); Osmolality Calculated 298 mOsm/kg (285-295); Potassium 3.8 mmol/L (3.5-5.1); Sodium 140 mmol/L (136-145); Total Bilirubin 0.8 mg/dL (0.15-1.2); Total Protein 6.4 g/dL (6.6-8.7)
[2023-02-23] MEDS: pantoprazole 40 mg SDV IVP ×2 (05:35→17:42)
[2023-02-23] MEDS: budesonide 0.5 mg/2 mL Neb INHALATION ×2 (08:41→19:34)
[2023-02-23] MEDS: nystatin cream 30 gm 1 APPLIC TOPICAL (09:06)
[2023-02-23] MEDS: simethicone 80 mg Chew PO (09:06)
[2023-02-23] MEDS: lidocaine 5% Patch 1 PATCH TOPICAL (09:07)
--- NOTE | 2023-02-23 10:38 | PM.PN ---
Subjective Medications: Reviewed: Yes Vitals/I&O/Wt Last Vital Signs Temp 98.6 F 02/23/23 08:00 Pulse 73 02/23/23 08:42 Resp 18 02/23/23 08:42 BP 136/75 02/23/23 08:00 Pulse Ox 95 02/23/23 08:42 O2 Del Method Nasal Cannula 02/23/23 08:42 O2 Flow Rate 5 02/23/23 08:42 FiO2 45 02/23/23 08:00 02/22/23 02/23/23 02/23/23 22:59 06:59 14:59 Intake Total 1500 / 1600 Output Total 2350 / 2350 0 / 2350 Balance -850 / -750 0 / -750 Weight last 48 hrs Weight 82.962 kg Weight 82.4 kg Weight 85.094 kg Physical Exam Narrative: AWAKE , NO DISTRESS ON NC PERRLA S2 S2 RRR PER REPORT decreased BS AT BASES PER REPORT NO EDEMA Urinary Catheter Management: Monsalve: Cath Placed During This Visit: yes, but has since been removed by the nurse Reason for Continuing Indwelling Catheter: Decision to DC Catheter Urinary Catheter Date of Insertion: 01/25/23 Urinary Catheter Time of Insertion: 15:00 Date Urinary Catheter Removed: 02/11/23 Time Urinary Catheter Discontinued: 15:30 Data 02/23/23 03:02 02/23/23 03:02 A&P Assessment and plan (1) KATHI (acute kidney injury): Plan 1. Acute on chronic kidney disease: Creatinine baseline in the mid 1 range. Current KATHI likely multifactorial-possible ATN due to acute infection, toxicity, possible cardiorenal. Patient has persistent hyperkalemia and volume overload with no response to diuretics at this point. -S/P temporary hemodialysis catheter placement and s/HD started - no renal recovery yet , Need nursing home HD but unsure pt can tolerate nursing home HD due to multiple comorbidities , will d/w family Tunnelled catheter placement next week if no recovery -Reassess daily for HD needs. Hold off HD today , s/p HD yesterday 2. Persistent hyperkalemia , multifactorial from KATHI and digitoxicity, improved 3. CHF: poor response to diuretics , HD as above 4. Acute on chronic respiratory failure: On BiPAP 6. Right extremity cellulitis 7. A-fib with RVR 8. Small bowel obstruction, followed by surgery Patient evaluated using audiovisual cart. Time spent 45 minutes Attestations Medical Necessity Statement*: per medicine Coding Level of Care Code Acute Code for Chg Fwd Diagnoses KATHI (acute kidney injury) N17.9
--- NOTE | 2023-02-23 14:18 | P.PN_ITS ---
Subjective Subjective: She states she is doing all right. Has not vomited. States she has tolerated little bit of sips of oral intake. He is okay to try some clear liquids. Vitals/I&O/Wt Last Vital Signs Temp 97.6 F 02/23/23 11:48 Pulse 78 02/23/23 13:57 Resp 18 02/23/23 13:48 BP 107/44 02/23/23 11:48 Pulse Ox 96 02/23/23 13:48 O2 Del Method Nasal Cannula 02/23/23 13:48 O2 Flow Rate 4 02/23/23 13:48 FiO2 45 02/23/23 08:00 02/22/23 02/23/23 02/23/23 22:59 06:59 14:59 Intake Total 1500 / 1600 100 / 100 Output Total 2350 / 2350 0 / 2350 Balance -850 / -750 0 / -750 100 / 100 Weight last 48 hrs Weight 82.962 kg Weight 82.4 kg Weight 85.094 kg Physical Exam Narrative: Reclined in bed. Const: COMMON NORMALS: patient oriented x3 and alert GENERAL APPEARANCE: cooperative ORIENTATION/CONSCIOUSNESS: Yes awake HENMT: COMMON NORMALS: oropharynx normal Neck/C-Spine: COMMON NORMALS: no JVD Resp: COMMON NORMALS: normal respiratory effort and clear to auscultation bilaterally AUSCULTATION: clear to auscultation bilaterally and diminished lung sounds OTHER: Nasal cannula. Cardio: COMMON NORMALS: no JVD, regular rhythm, S1 normal heart sound present, S2 normal heart sound present and No murmurs present (Cardio) RHYTHM: regular rhythm HEART SOUNDS: S1 normal heart sound present and S2 normal heart sound present GI: COMMON NORMALS: Normal to inspection, nondistended, normoactive bowel sounds present, Soft to palpation and non-tender PALPATION: Yes Soft to p alpation OTHER: Sluggish BS. Extremity: COMMON NORMALS: no joint enlargement and no pedal edema NARRATIVE EXTREMITY EXAM: LE no erythema but chronic venous stasis, purplish discoloration bilateral lower extremities on the shins, perfused appearing. Ankles. Dry scaly skin. Healing ulceration on anteromedial right lower leg, small ulceration 1 x 2 cm, shallow without tunneling or undermining, small meta slough at the base. Neuro: COMMON NORMALS: patient oriented x3 and moves all extremities SENSORIUM/ORIENTATION: Yes alert Skin: COMMON NORMALS: no rashes or lesions noted GENERAL SKIN EXAM: no rashes or lesions noted OTHER: Wrinkling of bilateral lower extremity skin over shins. Violaceous discoloration. Chronic venous stasis. No erythema. LLE without erythema. Swelling down significantly, wrinkling of skin. Compression sleeve LLE. Buttocks with somewhat violaceous discoloration, but resolution of severe erythema she had before. Shallow maceration/shear injury on center of each buttock. No tunneling or undermining. Urinary Catheter Management: Monsalve: Cath Placed During This Visit: yes, but has since been removed by the nurse Reason for Continuing Indwelling Catheter: Decision to DC Catheter Urinary Catheter Date of Insertion: 01/25/23 Urinary Catheter Time of Insertion: 15:00 Date Urinary Catheter Removed: 02/11/23 Time Urinary Catheter Discontinued: 15:30 Data 02/23/23 03:02 02/23/23 03:02 A&P Assessment and plan (1) SBO (small bowel obstruction): Surgery note reviewed. And trial of clear liquid diet. Keep on liquid diet for 5-7 days. Continue TPN for now. Plan discussed with case management. Continue bowel regimen. Follow-up chemistry requested. Stopped amiodarone in case of contribution to constipation. At risk of tachycardia with A-fib is currently unable to take oral medications reliably. Discussed low-dose metoprolol IV to help with rate control if blood pressure allows. She has had additional bowel regimen today. KUB results noted, persistent air distended loops of small bowel. Continue TPN. Goal rate 42 mL/h. At risk of fluid overload with underlying CHF, anuria, monitor with TPN infusion. Out of bed to chair. IV Protonix, Zofran as needed. Discussed with case management in rounds. (2) Leukocytosis: Improving, leukocytosis of 11.2, predominantly neutrophilic 8.09. No significant change in her condition. Continue to monitor at this time. Moderate effusion, however, also noted elevated INR, discussed with her. Currently would not be able to undergo thoracentesis. Follow-up INR on Saturday morning. Leukocytosis noted with some improvement down to 13. Discussed risk of bleeding with thoracentesis. Currently she does not have any worsening, noted some low- grade fevers previously up to 100.5 2 days ago, but otherwise afebrile currently. As per discussion with her we agreed currently to monitor her condition, continue incentive spirometry. Reassess recovery. Preliminary blood cultures reviewed, so far negative. Recheck CBC. No worsening abdominal symptoms, gradually improving. He denies any worsening in respiratory status, although still requiring nasal cannula supplemental oxygen. Does not appear significantly volume overloaded. Cellulitis overall has resolved, significant trauma, with some residual violaceous discoloration but no significant erythema she had before. Small maceration/shear injury on center of each buttock without any drainage, no significant surrounding edema or erythema, no tunneling or undermining. Monitor for symptom change. So far no diarrhea. (3) KATHI (acute kidney injury): Nephrology documentation appreciated. Consideration of tunneled catheter next week if no recovery and blood cultures remaining negative. Depending on her and family wishes if they are okay with continuing dialysis likely may need hemodialysis after discharge. Discussed with case management. Discussed with surgery. Surgery documentation appreciated, upon removal of temporary dialysis catheter will need repeat x-ray to reassess density. Repeat chemistry requested. Continue to monitor intake and output. Digoxin level 1.3 on 02/18 will not get any further. Held Bumex 1 mg IV daily for now. (4) Respiratory failure with hypoxia: CT chest as above. Hold off antibiotic for now. Repeat chest x-ray largely unchanged. Continued bibasilar lung opacities and pleural effusions. Discussed with her incentive spirometry. We will reassess condition, blood counts. Noted abnormal procalcitonin. Discussed with nephrology, Bumex has been on hold for now. Anticipate additional dialysis over the weekend. Bumex was held due to anuria. Continue to reassess, consider resuming. Continue oxygen support, NIPPV support. Oxygen supplementation keeping saturation over 88%. Strict input output charting, daily weights. Anuric. Bumex held. (5) Atrial fibrillation with RVR: Stopped amiodarone for now. Continue IV metoprolol as per parameters. Monitor heart rate. Small dose potassium replacement. Stop Lokelma. Off warfarin. Additional INR requested. Avoid digoxin. Heart rate now remains controlled. (6) Supratherapeutic INR: Repeat INR on Saturday. Off amiodarone. Repeat INR requested. Follow-up CBC requested. Continue off warfarin. Consideration of starting alternative anticoagulant once INR declines. Follow INR in a couple of days. Patient has a labile INR. Patient is supratherapeutic INR on presentation which had improved and then supratherapeutic again. Most likely in combination of medical interactions. On discharge she will start on Eliquis 5 mg twice daily. Hold off on any further Coumadin. (7) Anemia: Hemoglobin with some fluctuation, currently at 8.1. Platelets 197. Repeat CBC. Hemoccult requested. Target hemoglobin more than 8. Post 1 unit of blood transfusion. Continue to monitor hemoglobin daily. (8) Hyperkalemia: Resolved postdialysis. (9) Cellulitis: Note significant improvement in symptoms. Completed antibiotics, antifungal. Stable. Continue wound care with zinc oxide. Frequent repositioning. Out of bed to chair. MRSA negative. Stop vancomycin. Finished Cefepime on 02/12. Last dose of fluconazole on 02/15. Lower extremities do not appear to have active cellulitis beyond chronic gudelia nges, ulceration on anterior medial right lower leg. 1cm spot of eschar on lateral second left toe, she states has had that spot for a while. Keep monitoring. Does not appear like necrosis. (10) CHF (congestive heart failure), NYHA class III: Dialysis. Monitor urine output. Currently anuric, Bumex held for now. Fluid restriction up to 1500 cc. Monitor daily. Qualifiers: Congestive heart failure chronicity: acute on chronic Congestive heart failure type: diastolic Qualified Code(s): I50.33 - Acute on chronic diastolic (congestive) heart failure (11) Hyponatremia: Resolved (12) Wound, open, leg: (13) PAD (peripheral artery disease): (14) Hypertension: (15) Warfarin anticoagulation: (16) Carotid disease, bilateral: (17) COPD (chronic obstructive pulmonary disease): (18) Peripheral neuropathy: (19) Hemodialysis status: (20) Elevated digoxin level: Plan Hematuria: Monsalve replaced after small bowel obstruction. Continue to monitor for hematuria. DNR/DNI. N.p.o. Therapeutic INR with suffice for DVT prophylaxis. Protonix for PUD prophylaxis. Discharge plan: Not ready for discharge, discussed with case management in rounds. Goals of care discussion: Continue to reassess. Previously Discussed with her , he states she seems to be aware that her condition overall is not good and she seems to feel that her prognosis overall is not good. Certainly discussed with him that given protracted hospitalization and scant improvement certainly difficult to predict overall outlook, but may portend a worse prognosis. At risk of additional complications and worsening in her condition. Certainly cannot exclude a poor outcome. They do understand, although have been trying to still keep her well supported and encouraged so that she does not give up either as they that would detract from attempts at recovery at least while he r goals of care are still on more aggressive side. He does reiterate that she would not have wanted cardiopulmonary substation or a life support in case of progressive deterioration to that point. Attestations Medical Necessity Statement*: Continue admission for assessment management of SBO, worsened leukocytosis, persistent hypoxia, renal failure, in a lady with CHF. Diagnoses SBO (small bowel obstruction) K56.609 Leukocytosis D72.829 KATHI (acute kidney injury) N17.9 Respiratory failure with hypoxia J96.91 Atrial fibrillation with RVR I48.91 Supratherapeutic INR R79.1 Anemia D64.9 Hyperkalemia E87.5 Cellulitis L03.90 CHF (congestive heart failure), NYHA class III I50.33 Congestive heart failure chronicity: acute on chronic Congestive heart failure type: diastolic Hyponatremia E87.1 Wound, open, leg S81.809A PAD (peripheral artery disease) I73.9 Hypertension I10 Warfarin anticoagulation Z79.01 Carotid disease, bilateral I77.9 COPD (chronic obstructive pulmonary disease) J44.9 Peripheral neuropathy G62.9 Hemodialysis status Z99.2 Elevated digoxin level R78.89
--- NOTE | 2023-02-23 16:37 | PM.PN ---
Subjective Subjective: No complaints Vitals/I&O/Wt Last Vital Signs Temp 98.0 F 02/23/23 15:53 Pulse 79 02/23/23 15:53 Resp 17 02/23/23 15:53 BP 108/54 02/23/23 15:53 Pulse Ox 89 L 02/23/23 15:53 O2 Del Method Nasal Cannula 02/23/23 15:53 O2 Flow Rate 4 02/23/23 13:48 FiO2 45 02/23/23 08:00 02/23/23 02/23/23 02/23/23 06:59 14:59 22:59 Intake Total 100 / 100 Output Total 0 / 2350 Balance 0 / -750 100 / 100 Weight last 48 hrs Weight 182 lb 14.4 oz Weight 181 lb 10.574 oz Weight 187 lb 9.6 oz Physical Exam Narrative: Patient is a well developed well nourished and in NAD and is afebrile with vitals stable and is answering questions appropriately with a normal affect and is alert and oriented x3 HEENT: normocephalic with normal external ears and nonicteric, oral mucosa moist and dentition normal for age, trachea midline with no large masses visualized Heart: RRR, no gallops murmurs or rubs, normal PMI with no thrills Lungs: normal excursions, no loud audible wheezing, no subcutaneous emphysema Abdomen: nondistended, no gross hepatosplenomegaly, no masses, no rigidity or rebound, no loud borborygmi Neuro: nonfocal, DELGADILLO, grossly normal sensation Musculoskeletal: good muscle tone, no fasciculations, normal gait Skin: pink warm and dry with no rashes or ecchymosis Vascular: good radial pulses, no ulceration, less than 2 second capillary refill in hand : deferred Urinary Catheter Management: Monsalve: Cath Placed During This Visit: yes, but has since been removed by the nurse Reason for Continuing Indwelling Catheter: Decision to DC Catheter Urinary Catheter Date of Insertion: 01/25/23 Urinary Catheter Time of Insertion: 15:00 Date Urinary Catheter Removed: 02/11/23 Time Urinary Catheter Discontinued: 15:30 Data 02/23/23 03:02 02/23/23 03:02 A&P Assessment and plan (1) Partial small bowel obstruction: Patient pulled out NG accidently. Consider clears tomorrow if no N/V. Advance to full liquids and keep on liquid diet for 5-7 days then low fiber diet for a month to prevent recurrence of SBO. Attestations Medical Necessity Statement*: see hospitalist note Coding Level of Care Code 25106 Diagnoses Partial small bowel obstruction K56.600
[2023-02-23] MEDS: AA-Dex 5%-20% w/Lytes 1,000 ML 42 ML IV (19:29)
[2023-02-23] MEDS: ropinirole 0.25 mg Tablet 0.5 MG PO (20:35)
[2023-02-23] MEDS: midodrine 5 mg TABLET PO (20:36)
[2023-02-23] MEDS: acetaminophen 325 mg Tablet 650 MG PO (20:36)
[2023-02-24] VITALS (15 sets, daily range): BP systolic 122–156; BP diastolic 59–75; PULSE 72–96; RESP 18–26; TEMP 36.3–36.8; O2SAT 92–96
[2023-02-24] MEDS: ipratropium 0.5 mg/2.5 mL Neb INHALATION ×4 (02:10→20:37)
[2023-02-24] MEDS: levalbuterol 0.63 mg/3 mL Neb INHALATION ×4 (02:10→20:37)
[2023-02-24 03:15] LABS: Basophils # 0.1 10^3/uL (0.0-0.1); Basophils % 0.8 %; Eosinophils # 0.7 10^3/uL (0.0-0.8); Eosinophils % 4.5 %; Hematocrit 28.3 % (37.0-47.0); Hemoglobin 8.3 g/dL (11.5-15.3); Lymphocytes # 0.6 10^3/uL (0.8-4.8); Mean Corpuscular HGB Conc 29.3 g/dL (30.0-36.0); Mean Corpuscular Hemoglobin 27.2 pg (28.0-34.0); Mean Corpuscular Volume 92.8 fl (81-99); Mean Platelet Volume 11.4 fL (7.4-10.4); Monocytes # 1.4 10^3/uL (0.2-0.9); Monocytes % 9.1 %; Neutrophils # 12.68 10^3/uL (1.8-7.7); Neutrophils % 80.6 %; Nucleated Red Blood Cells % 0 %; Platelet Count 188 10^3/cmm (130-400); Red Blood Count 3.05 10^6/uL (4.1-5.3); Red Cell Distribution Width 17.6 % (12.1-15.1); White Blood Count 15.7 10^3/uL (4.0-10.0)
[2023-02-24 03:49] LABS: Alanine Aminotransferase 11 U/L (0-33); Albumin Level 3.6 g/dL (3.5-5.2); Alkaline Phosphatase 198 U/L (35-105); Anion Gap 13.4 (5-19); Aspartate Amino Transferase 13 U/L (0-32); Blood Urea Nitrogen 51 mg/dL (8-23); Calcium 8.8 mg/dL (8.5-10.5); Carbon Dioxide 30 mmol/L (22-29); Chloride 91 mmol/L (98-107); Glucose 140 mg/dL (65-115); Osmolality Calculated 288 mOsm/kg (285-295); Potassium 3.4 mmol/L (3.5-5.1); Sodium 131 mmol/L (136-145); Total Bilirubin 0.7 mg/dL (0.15-1.2); Total Protein 6.6 g/dL (6.6-8.7)
[2023-02-24] MEDS: pantoprazole 40 mg SDV IVP ×2 (05:25→17:24)
[2023-02-24] MEDS: lidocaine 5% Patch 1 PATCH TOPICAL (09:37)
[2023-02-24] MEDS: budesonide 0.5 mg/2 mL Neb INHALATION ×2 (09:55→20:37)
--- NOTE | 2023-02-24 11:40 | P.PN_ITS ---
Subjective Subjective: feels better Medications: Reviewed: Yes Vitals/I&O/Wt Last Vital Signs Temp 97.4 F L 02/24/23 04:00 Pulse 83 02/24/23 10:12 Resp 20 H 02/24/23 09:55 BP 134/75 02/24/23 04:00 Pulse Ox 94 02/24/23 09:55 O2 Del Method Nasal Cannula 02/24/23 09:55 O2 Flow Rate 4 02/24/23 09:55 FiO2 45 02/24/23 03:34 02/23/23 02/24/23 02/24/23 22:59 06:59 14:59 Intake Total 1120 / 1220 0 / 1220 Output Total 100 / 100 75 / 175 Balance 1020 / 1120 -75 / 1045 Weight last 48 hrs Weight 83.552 kg Weight 82.962 kg Weight 82.4 kg Physical Exam Narrative: AWAKE , NO DISTRESS ON NC PERRLA S2 S2 RRR PER REPORT decreased BS AT BASES PER REPORT NO EDEMA Urinary Catheter Management: Monsalve: Cath Placed During This Visit: yes, but has since been removed by the nurse Reason for Continuing Indwelling Catheter: Decision to DC Catheter Urinary Catheter Date of Insertion: 01/25/23 Urinary Catheter Time of Insertion: 15:00 Date Urinary Catheter Removed: 02/11/23 Time Urinary Catheter Discontinued: 15:30 Data 02/24/23 02:45 02/24/23 02:45 Micro: Microbiology 02/23/23 21:00 Occult Blood (FIT) - Final Stool - Stool Aspirate A&P Assessment and plan (1) KATHI (acute kidney injury): Plan 1. Acute on chronic kidney disease: Creatinine baseline in the mid 1 range. Current KATHI likely multifactorial-possible ATN due to acute infection, toxicity, possible cardiorenal. Patient has persistent hyperkalemia and volume overload with no response to diuretics at this point. -S/P temporary hemodialysis catheter placement and s/HD started - no renal recovery yet , Need shelter HD but unsure pt can tolerate shelter HD due to multiple comorbidities , will d/w family Tunnelled catheter placement next week if no recovery -Reassess daily for HD needs.Last hD saturday 2. Persistent hyperkalemia , multifactorial from KATHI and digitoxicity, improved 3. CHF: poor response to diuretics , HD as above 4. Acute on chronic respiratory failure: On BiPAP 6. Right extremity cellulitis 7. A-fib with RVR 8. Small bowel obstruction, followed by surgery Patient evaluated using audiovisual cart. Time spent 45 minutes Attestations Medical Necessity Statement*: per medicine Coding Level of Care Code Acute Code for Chg Fwd Diagnoses KATHI (acute kidney injury) N17.9
[2023-02-24] MEDS: FUROsemide 10 mg/mL SDV 4mL 40 MG IVP (12:24)
--- NOTE | 2023-02-24 13:59 | PM.PN ---
Subjective Subjective: No complaints Vitals/I&O/Wt Last Vital Signs Temp 98.1 F 02/24/23 11:39 Pulse 79 02/24/23 11:39 Resp 22 H 02/24/23 11:39 BP 132/59 02/24/23 11:39 Pulse Ox 94 02/24/23 11:39 O2 Del Method Nasal Cannula 02/24/23 11:39 O2 Flow Rate 4 02/24/23 09:55 FiO2 45 02/24/23 03:34 02/23/23 02/24/23 02/24/23 22:59 06:59 14:59 Intake Total 1120 / 1220 0 / 1220 100 / 100 Output Total 100 / 100 75 / 175 Balance 1020 / 1120 -75 / 1045 100 / 100 Weight last 48 hrs Weight 184 lb 3.2 oz Weight 182 lb 14.4 oz Weight 181 lb 10.574 oz Physical Exam Narrative: Patient is a well developed well nourished and in NAD and is afebrile with vitals stable and is answering questions appropriately with a normal affect and is alert and oriented x3 HEENT: normocephalic with normal external ears and nonicteric, oral mucosa moist and dentition normal for age, trachea midline with no large masses visualized Heart: RRR, no gallops murmurs or rubs, normal PMI with no thrills Lungs: normal excursions, no loud audible wheezing, no subcutaneous emphysema Abdomen: nondistended, no gross hepatosplenomegaly, no masses, no rigidity or rebound, no loud borborygmi Neuro: nonfocal, DELGAD[place]O, grossly normal sensation Musculoskeletal: good muscle tone, no fasciculations, normal gait Skin: pink warm and dry with no rashes or ecchymosis Vascular: good radial pulses, no ulceration, less than 2 second capillary refill in hand : deferred Urinary Catheter Management: Monsalve: Cath Placed During This Visit: yes, but has since been removed by the nurse Reason for Continuing Indwelling Catheter: Decision to DC Catheter Urinary Catheter Date of Insertion: 01/25/23 Urinary Catheter Time of Insertion: 15:00 Date Urinary Catheter Removed: 02/11/23 Time Urinary Catheter Discontinued: 15:30 Data 02/24/23 02:45 02/24/23 02:45 Micro: Microbiology 02/23/23 21:00 Occult Blood (FIT) - Final Stool - Stool Aspirate A&P Assessment and plan (1) SBO (small bowel obstruction): Tolerated NG tube out for at least a day. May try sips of clears and advance to fulls. Keep on liquids for a few days then low fiber diet for a month Attestations Medical Necessity Statement*: see hospitalist note Coding Level of Care Code Acute Code for Chg Fwd Diagnoses SBO (small bowel obstruction) K56.609
[2023-02-24] MEDS: midodrine 5 mg TABLET PO ×2 (15:24→20:12)
[2023-02-24] MEDS: nystatin cream 30 gm 1 APPLIC TOPICAL (17:25)
[2023-02-24] MEDS: simethicone 80 mg Chew PO (17:27)
[2023-02-24] MEDS: AA-Dex 5%-20% w/Lytes 1,000 ML 42 ML IV (19:10)
[2023-02-24] MEDS: ondansetron 2 mg/ML SDV 2 mL 4 MG IVP (19:16)
[2023-02-24] MEDS: acetaminophen 325 mg Tablet 650 MG PO (20:11)
[2023-02-24] MEDS: ropinirole 0.25 mg Tablet 0.5 MG PO (20:12)
--- NOTE | 2023-02-24 20:20 | P.PN_ITS ---
Subjective Subjective: She has been doing some coughing productive of thick phlegm. No abdominal pain. No vomiting. Tolerated some clears. Vitals/I&O/Wt Last Vital Signs Temp 98.2 F 02/24/23 19:25 Pulse 79 02/24/23 19:25 Resp 18 02/24/23 19:25 BP 156/65 02/24/23 19:25 Pulse Ox 92 02/24/23 19:25 O2 Del Method Room Air 02/24/23 19:25 O2 Flow Rate 4 02/24/23 14:00 FiO2 45 02/24/23 03:34 02/24/23 02/24/23 02/24/23 06:59 14:59 22:59 Intake Total 0 / 1220 100 / 100 994.7 / 1094.7 Output Total 75 / 175 Balance -75 / 1045 100 / 100 994.7 / 1094.7 Weight last 48 hrs Weight 83.552 kg Weight 82.962 kg Physical Exam Narrative: Visited by her . Reclined in bed. Const: COMMON NORMALS: patient oriented x3 and alert GENERAL APPEARANCE: cooperative ORIENTATION/CONSCIOUSNESS: Yes awake HENMT: COMMON NORMALS: oropharynx normal Neck/C-Spine: COMMON NORMALS: no JVD Resp: COMMON NORMALS: normal respiratory effort and clear to auscultation bilaterally AUSCULTATION: clear to auscultation bilaterally and diminished lung sounds OTHER: Nasal cannula. Cardio: COMMON NORMALS: no JVD, regular rhythm, S1 normal heart sound present, S2 normal heart sound present and No murmurs present (Cardio) RHYTHM: regular rhythm HEART SOUNDS: S1 normal heart sound present and S2 normal heart sound present GI: COMMON NORMALS: Normal to inspection, nondistended, normoactive bowel sounds present, Soft to palpation and non-tender PALPATION: Yes Soft to palpation OTHER: Sluggish BS. Extremity: COMMON NORMALS: no joint enlargement and no pedal edema NARRATIVE EXTREMITY EXAM: LE no erythema but chronic venous stasis, purplish discoloration bilateral lower extremities on the shins, perfused appearing. Ankles. Dry scaly skin. Healing ulceration on anteromedial right lower leg, small ulceration 1 x 2 cm, shallow without tunneling or undermining, small meta slough at the base. Neuro: COMMON NORMALS: patient oriented x3 and moves all extremities SENSORIUM/ORIENTATION: Yes alert Skin: COMMON NORMALS: no rashes or lesions noted GENERAL SKIN EXAM: no rashes or lesions noted OTHER: Wrinkling of bilateral lower extremity skin over shins. Violaceous discoloration. Chronic venous stasis. No erythema. LLE without erythema. Swelling down significantly, wrinkling of skin. Compression sleeve LLE. Buttocks with somewhat violaceous discoloration, but resolution of severe erythema she had before. Shallow maceration/shear injury on center of each buttock. No tunneling or undermining. Urinary Catheter Management: Monsalve: Cath Placed During This Visit: yes, but has since been removed by the nurse Reason for Continuing Indwelling Catheter: Decision to DC Catheter Urinary Catheter Date of Insertion: 01/25/23 Urinary Catheter Time of Insertion: 15:00 Date Urinary Catheter Removed: 02/11/23 Time Urinary Catheter Discontinued: 15:30 Data 02/24/23 02:45 02/24/23 02:45 Micro: Microbiology 02/23/23 21:00 Occult Blood (FIT) - Final Stool - Stool Aspirate A&P Assessment and plan (1) Respiratory failure with hypoxia: She is now coughing more, reports thick phlegm. We will request sputum culture. Urine bacterial antigens, urine Legionella antigen. Discussed with her consideration of restarting antibiotic with concern for possible pneumonia with abnormal imaging findings including pleural effusions which we could not sample so far. We will restart antibiotic with Levaquin for now. Started renal dosing, 750 mg x 1, then 500 mg every 48 hours. With renal failure may be at risk of toxicity, monitor for any signs. Recheck INR in the morning to see if can undergo thoracentesis. CT chest as above. Hold off antibiotic for now. Repeat chest x-ray largely unchanged. Continued bibasilar lung opacities and pleural effusions. Discussed with her incentive spirometry. We will reassess condition, blood counts. Noted abnormal procalcitonin. Discussed with nephrology, Bumex has been on hold for now. Anticipate a dditional dialysis over the weekend. Bumex was held due to anuria. Continue to reassess, consider resuming. Continue oxygen support, NIPPV support. Oxygen supplementation keeping saturation over 88%. Strict input output charting, daily weights. Anuric. Bumex held. (2) Leukocytosis: Worsened leukocytosis again up to 15.7. As above. Repeat CBC requested Moderate effusion, however, also noted elevated INR, discussed with her. Currently would not be able to undergo thoracentesis. Follow-up INR on Saturday morning. Discussed risk of bleeding and other complications with thoracentesis. Earlier last week have held off as her white count was improving, symptomatically she was unchanged. As per discussion with her we agreed currently to monitor her condition, continu e incentive spirometry. Reassess recovery. Preliminary blood cultures reviewed, so far negative. Follow-up blood cultures next week before insertion of tunneled catheter. Recheck CBC. No worsening abdominal symptoms, gradually improving. He denies any worsening in respiratory status, although still requiring nasal cannula supplemental oxygen. Does not appear significantly volume overloaded. Cellulitis overall has resolved, significant trauma, with some residual violaceous discoloration but no significant erythema she had before. Small maceration/shear injury on center of each buttock without any drainage, no significant surrounding edema or erythema, no tunneling or undermining. Monitor for symptom change. So far no diarrhea. (3) SBO (small bowel obstruction): Surgery documentation appreciated. Trial of clears if tolerating advance to full liquids. Keep on liquid for a few days then low fiber diet for a month. Continue TPN for now. Continue bowel regimen. Follow-up chemistry requested. Stopped amiodarone in case of contribution to constipation. At risk of tachycardia with A-fib is currently unable to take oral medications reliably. D iscussed low-dose metoprolol IV to help with rate control if blood pressure allows. She has had additional bowel regimen today. KUB results noted, persistent air distended loops of small bowel. Continue TPN. Goal rate 42 mL/h. At risk of fluid overload with underlying CHF, anuria, monitor with TPN infusion. Out of bed to chair. IV Protonix, Zofran as needed. Discussed with case management in rounds. (4) KATHI (acute kidney injury): She is not producing urine. Still requiring dialysis. If no recovery and blood cultures remain negative next week, obtain tunneled dialysis catheter. Discussed with case management. Case management is working on outpatient dialysis arrangements as well as [facility] facility placement. Nephrology note reviewed. Repeat chemistry requested. Surgery documentation appreciated, upon removal of temporary dialysis catheter will need repeat x-ray to reassess density. As per surgery density suspected radiopaque tip of the dialysis catheter. Continue to monitor intake and output. Digoxin level 1.3 on 02/18 will not get any further. Held Bumex 1 mg IV daily for now. (5) Atrial fibrillation with RVR: Off amiodarone in case contributing to constipation/ileus. Continue IV metoprolol as per parameters. Monitor heart rate. Off warfarin. Additional INR requested for Saturday morning. Avoid digoxin. Heart rate now remains controlled. (6) Supratherapeutic INR: Repeat INR on Saturday. Off amiodarone. Repeat INR requested. Follow-up CBC requested. Continue off warfarin. Consideration of starting alternative anticoagulant once INR declines. Patient has a labile INR. Patient is supratherapeutic INR on presentation which had improved and then supratherapeutic again. Most likely in combination of medical interactions. On discharge she will start on Eliquis 5 mg twice daily. Hold off on any further Coumadin. (7) Anemia: Hemoccult noted negative. Hemoglobin with some fluctuation, currently at 8.3. Platelets 188. Repeat CBC. Target hemoglobin more than 8. Post 1 unit of blood transfusion. Continue to monitor hemoglobin daily. (8) Hyperkalemia: Resolved postdialysis. (9) Cellulitis: Note significant improvement in symptoms. Completed antibiotics, antifungal. Stable. Continue wound care with zinc oxide. Frequent repositioning. Out of bed to chair. MRSA negative. Stop vancomycin. Finished Cefepime on 02/12. Last dose of fluconazole on 02/15. Lower extremities do not appear to have active cellulitis beyond chronic changes, ulceration on anterior medial right lower leg. 1cm spot of eschar on lateral second left toe, she states has had that spot for a while. Keep monitoring. Does not appear like necrosis. (10) CHF (congestive heart failure), NYHA class III: Dialysis. Monitor urine output. Currently anuric, Bumex held for now. Fluid restriction up to 1500 cc. Monitor daily. Qualifiers: Congestive heart failure chronicity: acute on chronic Congestive heart failure type: diastolic Qualified Code(s): I50.33 - Acute on chronic diastolic (congestive) heart failure (11) Hyponatremia: Resolved (12) Wound, open, leg: (13) PAD (peripheral artery disease): (14) Hypertension: (15) Warfarin anticoagulation: (16) Carotid disease, bilateral: (17) COPD (chronic obstructive pulmonary disease): (18) Peripheral neuropathy: (19) Hemodialysis status: (20) Elevated digoxin level: Plan Hematuria: Monsalve replaced after small bowel obstruction. Continue to monitor for hematuria. DNR/DNI. N.p.o. Therapeutic INR with suffice for DVT prophylaxis. Protonix for PUD prophylaxis. Discharge plan: Not ready for discharge, discussed with case management in rounds. Goals of care discussion: Continue to reassess. Previously Discussed with her , he states she seems to be aware that her condition overall is not good and she seems to feel that her prognosis overall is not good. Certainly discussed with him that given protracted hospitalization and scant improvement certainly difficult to predict overall outlook, but may portend a worse prognosis. At risk of additional complications and worsening in her condition. Certainly cannot exclude a poor outcome. They do understand, although have been trying to still keep her well supported and encouraged so that she does not give up either as they that would detract from attempts at recovery at least while her goals of care are still on more aggressive side. He does reiterate that she would not have wanted cardiopulmonary substation or a life support in case of progressive deterioration to that point. Attestations Medical Necessity Statement*: Continue admission for assessment management of SBO, worsened leukocytosis, persistent hypoxia, renal failure, in a lady with CHF. Diagnoses Respiratory failure with hypoxia J96.91 Leukocytosis D72.829 SBO (small bowel obstruction) K56.609 KATHI (acute kidney injury) N17.9 Atrial fibrillation with RVR I48.91 Supratherapeutic INR R79.1 Anemia D64.9 Hyperkalemia E87.5 Cellulitis L03.90 CHF (congestive heart failure), NYHA class III I50.33 Congestive heart failure chronicity: acute on chronic Congestive heart failure type: diastolic Hyponatremia E87.1 Wound, open, leg S81.809A PAD (peripheral artery disease) I73.9 Hypertension I10 Warfarin anticoagulation Z79.01 Carotid disease, bilateral I77.9 COPD (chronic obstructive pulmonary disease) J44.9 Peripheral neuropathy G62.9 Hemodialysis status Z99.2 Elevated digoxin level R78.89
[2023-02-24] MEDS: cetylpyridinium Lozenge 1 EACH MUCOUS MEM (22:48)
--- NOTE | 2023-02-24 22:49 | PC.NURSE ---
Patient c/o nausea and irritation in her throat. INformed Dr Sherman and received onetime order for reglan 10mg IVP. RBVO
[2023-02-24] MEDS: metoclopramide 5 mg/mL SDV 2 mL 10 MG IVP (22:59)
--- NOTE | 2023-02-24 23:12 | PC.NURSE ---
Addendum entered by Ameena Mart RN 02/24/23 23:22: Spoke with Dr Sherman and received onetime dose of 0.25 Ativan IVP and onetime dose of hydrocodone 5/325mg PO. RBVO Original Note: This patient is very anxious tonight. She is afraid to alone for any length of time and is refusing to wear her bipap as well. Informed Dr Sherman.
[2023-02-24] MEDS: LORazepam 2 mg/mL INJ 1 mL 0.25 MG IVP (23:32)
--- NOTE | 2023-02-24 23:47 | PC.NURSE ---
Patient did not want to take the hyrdocodone. Did give the Ativan which does seem to be helping with pain and anxiety. Informed Dr Sherman patient did not take the hydrocodone.
[2023-02-25] VITALS (15 sets, daily range): BP systolic 100–135; BP diastolic 47–73; PULSE 76–116; RESP 16–32; TEMP 36–37.4; O2SAT 79–96
[2023-02-25 02:43] LABS: Basophils # 0.1 10^3/uL (0.0-0.1); Basophils % 0.7 %; Eosinophils # 0.7 10^3/uL (0.0-0.8); Eosinophils % 4.9 %; Hematocrit 26.7 % (37.0-47.0); Hemoglobin 7.7 g/dL (11.5-15.3); Lymphocytes # 0.8 10^3/uL (0.8-4.8); Lymphocytes % 6.1 %; Mean Corpuscular HGB Conc 28.8 g/dL (30.0-36.0); Mean Corpuscular Hemoglobin 26.7 pg (28.0-34.0); Mean Corpuscular Volume 92.7 fl (81-99); Mean Platelet Volume 12.1 fL (7.4-10.4); Monocytes # 1.2 10^3/uL (0.2-0.9); Monocytes % 8.7 %; Neutrophils # 10.88 10^3/uL (1.8-7.7); Neutrophils % 78.7 %; Nucleated Red Blood Cells % 0 %; Platelet Count 184 10^3/cmm (130-400); Red Blood Count 2.88 10^6/uL (4.1-5.3); Red Cell Distribution Width 17.2 % (12.1-15.1); White Blood Count 13.8 10^3/uL (4.0-10.0)
[2023-02-25] MEDS: ipratropium 0.5 mg/2.5 mL Neb INHALATION ×2 (02:51→08:12)
[2023-02-25] MEDS: levalbuterol 0.63 mg/3 mL Neb INHALATION ×2 (02:51→08:12)
[2023-02-25 03:03] LABS: INR 2.52 (0.8-1.2)
[2023-02-25 03:13] LABS: Alanine Aminotransferase 11 U/L (0-33); Albumin Level 3.5 g/dL (3.5-5.2); Alkaline Phosphatase 190 U/L (35-105); Anion Gap 15.9 (5-19); Aspartate Amino Transferase 15 U/L (0-32); Blood Urea Nitrogen 68 mg/dL (8-23); Calcium 8.8 mg/dL (8.5-10.5); Carbon Dioxide 31 mmol/L (22-29); Chloride 93 mmol/L (98-107); Globulin 2.9 g/dL (1.3-4.6); Glucose 124 mg/dL (65-115); Osmolality Calculated 303 mOsm/kg (285-295); Potassium 3.9 mmol/L (3.5-5.1); Sodium 136 mmol/L (136-145); Total Bilirubin 0.7 mg/dL (0.15-1.2); Total Protein 6.4 g/dL (6.6-8.7)
[2023-02-25] MEDS: levofloxacin-dextrose 5 % 750 MG/150 ML PREMIX 100 MG IV (03:31)
[2023-02-25] MEDS: ondansetron 2 mg/ML SDV 2 mL 4 MG IVP (05:15)
[2023-02-25] MEDS: pantoprazole 40 mg SDV IVP (05:15)
[2023-02-25] MEDS: budesonide 0.5 mg/2 mL Neb INHALATION (08:12)
--- NOTE | 2023-02-25 09:38 | PC.HD ---
Dialysis lines set up in reverse configuration due to being unable to draw from arterial port at all. Chilling Hood Operator aware.
--- NOTE | 2023-02-25 10:18 | PC.SOCIAL ---
IMM Update pg 2 of IMM updated and reviewed w/ patients as patient is in dialysis. Copy provided and copy dated, initialed and placed in chart.
--- NOTE | 2023-02-25 10:43 | PM.PN ---
Subjective Subjective: seen on HD Medications: Reviewed: Yes Vitals/I&O/Wt Last Vital Signs Temp 96.8 F L 02/25/23 09:37 Pulse 116 H 02/25/23 09:37 Resp 20 H 02/25/23 09:37 BP 135/69 02/25/23 09:37 Pulse Ox 90 02/25/23 08:34 O2 Del Method Nasal Cannula 02/25/23 08:12 O2 Flow Rate 4.5 02/25/23 08:12 FiO2 45 02/25/23 08:34 02/24/23 02/25/23 02/25/23 22:59 06:59 14:59 Intake Total 994.7 / 1094.7 150 / 150 Output Total 200 / 200 Balance 794.7 / 894.7 150 / 150 Weight last 48 hrs Weight 84.776 kg Weight 83.552 kg Physical Exam Urinary Catheter Management: Monsalve: Cath Placed During This Visit: yes, but has since been removed by the nurse Reason for Continuing Indwelling Catheter: Decision to DC Catheter Urinary Catheter Date of Insertion: 01/25/23 Urinary Catheter Time of Insertion: 15:00 Date Urinary Catheter Removed: 02/11/23 Time Urinary Catheter Discontinued: 15:30 Data 02/25/23 02:10 02/25/23 02:10 Micro: Microbiology 02/24/23 Unknown Bacterial Antigens - Final Urine,Voided 02/24/23 Unknown Legionella Urinary Antigen - Final Urine Catheterized A&P Assessment and plan (1) KATHI (acute kidney injury): Plan 1. Acute on chronic kidney disease: Creatinine baseline in the mid 1 range. Current KATHI likely multifactorial-possible ATN due to acute infection, toxicity, possible cardiorenal. Patient has persistent hyperkalemia and volume overload with no response to diuretics at this point. -S/P temporary hemodialysis catheter placement and s/HD started - no renal recovery yet , Need nursing home HD but unsure pt can tolerate nursing home HD due to multiple comorbidities , -If family agrees , arrange for tunnelled catheter placement -Reassess daily for HD needs.Last hD saturday 2. Persistent hyperkalemia , multifactorial from KATHI and digitoxicity, improved 3. CHF: poor response to diuretics , HD as above 4. Acute on chronic respiratory failure: On BiPAP 6. Right extremity cellulitis 7. A-fib with RVR 8. Small bowel obstruction, followed by surgery Patient evaluated using audiovisual cart. Time spent 35 minutes Attestations Medical Necessity Statement*: PER MEDICINE Coding Level of Care Code Acute Code for Chg Fwd Diagnoses KATHI (acute kidney injury) N17.9
--- NOTE | 2023-02-25 13:22 | P.PN_ITS ---
Subjective Subjective: Patient was put on BiPAP for respiratory distress Down her breathing She is confused CODE STATUS reviewed with the respirate therapist Today I conducted two family meetings In First meeting we discussed about continuation of dialysis and tunnel catheter placement, is stating that his never wanted any artificial life support including dialysis and she is getting ready to meet the maker, there is a friend in the room as well who has known her for about 20 years stating that patient has given her enough hints that she does not want dialysis, artificial support, she never wanted to live like this Second family meeting was conducted around noon when wanted to go with hospice care, he does not want to continue dialysis at this point, he is asking for discharge to a longterm because wont be able to take care of her at home Vitals/I&O/Wt Last Vital Signs Temp 97.0 F L 02/25/23 12:58 Pulse 92 02/25/23 12:58 Resp 16 02/25/23 12:58 BP 118/72 02/25/23 12:58 Pulse Ox 92 02/25/23 11:23 O2 Del Method Nasal Cannula 02/25/23 08:12 O2 Flow Rate 4.5 02/25/23 08:12 FiO2 60 02/25/23 11:23 02/24/23 02/25/23 02/25/23 22:59 06:59 14:59 Intake Total 994.7 / 1094.7 450 / 450 Output Total 200 / 200 2300 / 2300 Balance 794.7 / 894.7 -1850 / -1850 Weight last 48 hrs Weight 85.4 kg Weight 84.776 kg Weight 83.552 kg Physical Exam Narrative: Patient was confused this morning able to answer a few questions We put her on BiPAP for respiratory distress Went for dialysis Verbally redirectable Edema of legs with skin wrinkling Sensitive lower extremities Variable S1-S2 Mentation is fluctuant Abdomen distended with sluggish bowel sounds Normal breathing pattern Urinary Catheter Management: Monsalve: Cath Placed During This Visit: yes, but has since been removed by the nurse Reason for Continuing Indwelling Catheter: Decision to DC Catheter Urinary Catheter Date of Insertion: 01/25/23 Urinary Catheter Time of Insertion: 15:00 Date Urinary Catheter Removed: 02/11/23 Time Urinary Catheter Discontinued: 15:30 Data 02/25/23 02:10 02/25/23 02:10 Micro: Microbiology 02/20/23 12:09 Blood Culture - Final Blood NO GROWTH AFTER 5 DAYS 02/20/23 12:09 Blood Culture - Final Blood NO GROWTH AFTER 5 DAYS 02/24/23 Unknown Bacterial Antigens - Final Urine,Voided 02/24/23 Unknown Legionella Urinary Antigen - Final Urine Catheterized A&P Assessment and plan (1) Hemodialysis status: (2) Anemia: (3) Partial small bowel obstruction: (4) Candidiasis: (5) Peripheral neuropathy: (6) Supratherapeutic INR: (7) Respiratory failure with hypoxia: (8) Carotid disease, bilateral: (9) CHF exacerbation: (10) PAD (peripheral artery disease): (11) Atrial fibrillation with RVR: (12) COPD (chronic obstructive pulmonary disease): (13) Central abdominal mass or swelling: (14) Status post carotid surgery: (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 nutrition, she received IV nutrition via TPN Bowel obstruction: NG tube removed, no active nausea or vomiting Abdomen is distended Bowel sounds sluggish Amiodarone discontinued Anasarca with end-stage renal disease and preserved ejection fraction heart failure exacerbation Patient has temper dialysis catheter, family does not want to pursue tunneled dialysis catheter placement or continuation of dialysis Status post dialysis today Nephrology notified of change of status Cellulitis: Improving Lower extremities with underlying peripheral arterial disease and venous stasis dermatitis Anemia: Stable A-fib heart rate is fluctuant, avoid digoxin, digoxin toxicity has been treated Supratherapeutic INR: No active bleed Goals of care: After 2 family meetings, had decided to start hospice care starting today, they do not want continuation of dialysis, patient seems to have guarded prognosis from days to weeks he is requesting for longterm placement with hospice, professor of social work has been notified Attestations Medical Necessity Statement*: Goals of care changed today Diagnoses Hemodialysis status Z99.2 Anemia D64.9 Partial small bowel obstruction K56.600 Candidiasis B37.9 Peripheral neuropathy G62.9 Supratherapeutic INR R79.1 Respiratory failure with hypoxia J96.91 Carotid disease, bilateral I77.9 CHF exacerbation I50.9 PAD (peripheral artery disease) I73.9 Atrial fibrillation with RVR I48.91 COPD (chronic obstructive pulmonary disease) J44.9 Central abdominal mass or swelling R19.09 Status post carotid surgery Z98.890 Femoral artery occlusion I70.209
[2023-02-25] MEDS: simethicone 80 mg Chew PO (14:03)
[2023-02-25] MEDS: midodrine 5 mg TABLET PO (14:03)
[2023-02-25] MEDS: fluticasone nasal spray 16gm Btl 2 SPRAY NASAL (14:04)
[2023-02-25] MEDS: lidocaine 5% Patch 1 PATCH TOPICAL (14:05)
[2023-02-25] MEDS: acetaminophen 325 mg Tablet 650 MG PO (16:03)
[2023-02-25] MEDS: LORazepam 2 mg/mL INJ 1 mL IVP (16:14)
--- NOTE | 2023-02-25 16:35 | PC.NURSE ---
TPN dc at 16:30, comfort care.
[2023-02-25] MEDS: morphine 4 mg/mL SDV 1 mL IVP (17:31)
--- NOTE | 2023-02-25 18:47 | PC.NURSE ---
Spoke with Dr Hall and received instruction to stop all medications except for comfort measures. RBVO
--- NOTE | 2023-02-25 21:46 | PC.NURSE ---
MTS MTS notified of pt . Per [facility] coordinator, pt is candidate for tissue donation.
--- NOTE | 2023-02-25 23:02 | PC.NURSE ---
[place] Time: 2300
--- NOTE | 2023-02-25 23:12 | PC.NURSE ---
Patient at 210402/25/2023. RN and spouse at bedside. Informed malt house loader and Dr Chacon of passing. Patient was comfort measures only at the time.
--- NOTE | 2023-02-26 03:15 | PC.NURSE ---
[facility] released body due to family refusal. [facility] notified.
--- NOTE | 2023-02-26 11:31 | PM.DDS ---
Discharge Providers DDS Date of Admission: 01/25/23 12:10 Date Summary Completed: 02/26/23 Attending Provider at Admission: Elder Rubin MD Attending Provider at Discharge: Angela Hall MD Primary Care Provider: DO WOLF Chacon Diagnoses Hospital Diagnoses (1) Hemodialysis status: (2) Anemia: (3) Partial small bowel obstruction: (4) Candidiasis: (5) Peripheral neuropathy: (6) Supratherapeutic INR: (7) Respiratory failure with hypoxia: (8) Carotid disease, bilateral: (9) CHF exacerbation: (10) PAD (peripheral artery disease): (11) Atrial fibrillation with RVR: (12) COPD (chronic obstructive pulmonary disease): (13) Central abdominal mass or swelling: (14) Status post carotid surgery: Permanent Problem Comments: bilateral (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: Reason for Visit Reason for Visit from woundcare, fluid in chest Summary Summary Summary: Patient spent 32 days in the hospital she suffered from renal failure & required dialysis, preserved ejection fraction heart exacerbation, bowel obstruction, pleural effusion, cellulitis, digoxin toxicity, she has multiple comorbid conditions, extremity became deconditioned not able to communicate and eat on her own, family decided to pursue hospice care, cause of : Renal failure Additional Data Advance directives?: No Discharge Plan Discharge Patient Disposition: At Medical Facility Condition: Stable Prescriptions: No Action albuterol sulfate 90 mcg/actuation HFA aerosol inhaler 1 puff inhalation QID PRN (Reason: shortness of breath or wheezing) Qty: 8.5 6RF (DME) Unna Boot Zinc-Calamine 3 %-3 %- 3 X 10 yard bandage See Rx Instructions .Route Qty: 10 1RF Rx Instructions: As directed, change dressings every 3-4 days, for lower leg care hydrocodone-acetaminophen 5-325 mg tablet 1 tab PO Q4H PRN (Reason: pain) 5 Days Qty: 30 0RF bumetanide 2 mg tablet 2 mg PO BID Qty: 180 3RF carvedilol 6.25 mg tablet 6.25 mg PO BID Qty: 180 3RF Rx Instructions: must administer with a meal/food metolazone 2.5 mg tablet 2.5 mg PO .every other day Qty: 90 3RF Rx Instructions: in the evening spironolactone 25 mg tablet 25 mg PO DAILY Qty: 90 3RF famotidine [Pepcid AC] 20 mg tablet 20 mg PO DAILY Qty: 90 3RF magnesium L-lactate 84 mg tablet extended release 250 mg PO BID potassium chloride 20 mEq tablet extended release 40 meq PO DAILY aspirin 81 mg Capsule 81 mg PO DAILY atorvastatin 80 mg tablet 80 mg PO QPM warfarin 4 mg tablet See Rx Instructions .ROUTE .COMPLEX Rx Instructions: 4 mg orally EVERYDAY BUT SATURDAY- NONE ON SATURDAY Probable Cause of Probable cause of : Cardiac arrest DS Attestations Time Spent in /Discharge Care*: greater than 30 min Quality - AMI: AMI present?: No Quality - Stroke: CVA present?: No Quality - VTE: VTE present?: No Deep Vein Thrombosis/Pulmonary Embolism Present on Admission: No Coding Level of Care Code Acute Code for Chg Fwd Diagnoses Hemodialysis status Z99.2 Anemia D64.9 Partial small bowel obstruction K56.600 Candidiasis B37.9 Peripheral neuropathy G62.9 Supratherapeutic INR R79.1 Respiratory failure with hypoxia J96.91 Carotid disease, bilateral I77.9 CHF exacerbation I50.9 PAD (peripheral artery disease) I73.9 Atrial fibrillation with RVR I48.91 COPD (chronic obstructive pulmonary disease) J44.9 Central abdominal mass or swelling R19.09 Status post carotid surgery Z98.890 Femoral artery occlusion I70.209
--- NOTE | 2023-02-26 11:34 | P.EN_ITS ---
Event Note Event Note: Time of 210402/25/2023 human resources safety manager was notified I was notified in the morning
--- NOTE | 2023-02-26 11:34 | W.PM.EVENTAC ---
Event Note Event Note: Time of 210402/25/2023 director cloud transformation was notified I was notified in the morning
== END 2023-02-25 21:05 | disposition expired | DRG 291 ==
LOC: ER 10:52 → CSU 12:10
PROVIDERS: Hospitalist; Internal Medicine; Internal Medicine Pulmonary Disease; Specialist; Student in an Organized Health Care Education/Training Program; Admitting Provider Family Medicine; Emergency Provider Family Medicine; PCP Family Medicine; Visit Provider Internal Medicine
PROC: 02HV33Z Insertion of Infusion Device into Superior Vena Cava, Percutaneous Approach (ICD-10-PCS; principal; 2023-02-15 19:30)
DX: I11.0 Hypertensive heart disease with heart failure (principal); I50.33 Acute on chronic diastolic (congestive) heart failure; N17.0 Acute kidney failure with tubular necrosis; J18.9 Pneumonia, unspecified organism; J96.01 Acute respiratory failure with hypoxia; K56.600 Partial intestinal obstruction, unspecified as to cause; L03.116 Cellulitis of left lower limb; L03.115 Cellulitis of right lower limb; L03.317 Cellulitis of buttock; J44.0 Chronic obstructive pulmonary disease with (acute) lower respiratory infection; J44.1 Chronic obstructive pulmonary disease with (acute) exacerbation; E87.1 Hypo-osmolality and hyponatremia; E87.3 Alkalosis; B37.49 Other urogenital candidiasis; J90 Pleural effusion, not elsewhere classified; T46.0X5A Adverse effect of cardiac-stimulant glycosides and drugs of similar action, initial encounter; I48.91 Unspecified atrial fibrillation; I73.9 Peripheral vascular disease, unspecified; Z95.820 Peripheral vascular angioplasty status with implants and grafts; Z87.891 Personal history of nicotine dependence; E78.5 Hyperlipidemia, unspecified; Z86.73 Personal history of transient ischemic attack (TIA), and cerebral infarction without residual deficits; E87.5 Hyperkalemia; D50.9 Iron deficiency anemia, unspecified; I95.9 Hypotension, unspecified; G62.9 Polyneuropathy, unspecified; Z66 Do not resuscitate; R79.1 Abnormal coagulation profile; R31.29 Other microscopic hematuria; T50.1X5A Adverse effect of loop [high-ceiling] diuretics, initial encounter; E87.6 Hypokalemia; R19.7 Diarrhea, unspecified; B37.2 Candidiasis of skin and nail; B96.4 Proteus (mirabilis) (morganii) as the cause of diseases classified elsewhere; R00.0 Tachycardia, unspecified; E86.0 Dehydration; D63.8 Anemia in other chronic diseases classified elsewhere; F41.9 Anxiety disorder, unspecified; Z51.5 Encounter for palliative care
CPT/HCPCS: 11721; 29581; 36415; 36430; 36569; 36591; 36592; 36600; 51702; 71045; 71250; 74019; 74022; 74176; 74230; 76000; 77001; 80048; 80051; 80053; 80076; 80162; 80202; 81001; 81003; 82274; 82330; 82436; 82570; 82805; 83605; 83735; 83880; 84100; 84132; 84133; 84145; 84300; 84484; 85025; 85610; 85730; 85999; 86140; 86403; 86705; 86706; 86850; 86900; 86920; 87040; 87070; 87077; 87086; 87106; 87186; 87340; 87449; 87486; 87493; 87581; 87633; 90935; 92507; 92523; 92526; 92610; 92611; 93005; 93306; 94640; 94660; 94669; 96365; 96366; 96375; 96376; 97110; 97116; 97161; 97530; 99213; 99285; C1751; C1752; C9113; J0282; J0610; J0690; J0692; J1100; J1160; J1450; J1642; J1644; J1815; J1940; J1956; J2060; J2270; J2405; J2543; J2765; J3370; J3430; J3490; J7030; J7040; J7042; J7050; J7060; J7614; J7626; J7644; P9016; P9046; P9047; Q3014